=== PATIENT | female | born 1950 | race Caucasian/White ===

== ENCOUNTER 2021-08-14 09:29 | Outpatient (CLI) | payer MEDICARE, SELFPAY ==
--- NOTE | ~2021-08-14 | CT_ITS ---
EXAMINATION: CT brain wo con DATE: 08/14/2021 09:57 INDICATION: Right hemiparesis. TECHNIQUE: Computed tomography (CT) of the head was performed without intravenous contrast. The mA wa s adjusted according to patient size. Iterative reconstruction technique was employed. The dose-lengt h product was 681.00 mGy-cm. COMPARISON: None FINDINGS: There are scattered areas of low attenuation in the cerebral white matter. There are change s of right-sided craniotomy. There is an aneurysm clip in right sylvian fissure. There is no intracra nial hemorrhage, acute infarction, or abnormal intracranial mass lesion. The ventricles are normal in size. The paranasal sinuses are clear. The orbits are normal. The mastoid air cells are normal. IMPRESSION: 1. Mild nonspecific cerebral white matter disease, which likely represents chronic small vessel ische chikis disease. Reviewed, dictated and finalized at location B. IMPRESSION: 1. Mild nonspecific cerebral white matter disease, which likely represents die developer andrei small vessel ischemic disease.
== END 2021-08-14 09:30 | disposition home or self-care (01) ==
PROVIDERS: PCP Internal Medicine; Visit Provider Clinical Nurse Specialist
DX: R29.898 Other symptoms and signs involving the musculoskeletal system (principal); R93.0 Abnormal findings on diagnostic imaging of skull and head, not elsewhere classified
CPT/HCPCS: 70450

== ENCOUNTER 2021-12-28 10:38 | Outpatient (CLI) | payer MEDICARE, SELFPAY ==
--- NOTE | ~2021-12-28 | XR_ITS ---
EXAM: XR cervical spine min 6V DATE: 12/28/2021 11:16 HISTORY: Evaulation for Cervical spine pain . COMPARISON: None available. FINDINGS: Craniocervical association and atlantoaxial joint are aligned. No prevertebral soft tissue swelling. A 2 mm retrolisthesis at C4-5 that reduces in flexion. 2 mm anterolisthesis at C5-6 and fl exion. Multilevel facet sclerosis and hypertrophy. Multilevel severe disc space narrowing with margin al osteophytosis Multilevel severe bilateral neural foraminal narrowing. IMPRESSION: Dynamic grade 1 listheses at C4-5 and C5-6. Multilevel severe degenerative disc disease a nd bilateral neural foraminal narrowing. Reviewed, dictated and finalized at location K. IMPRESSION: Dynamic grade 1 listheses at C4-5 and C5-6. Multilevel severe degen erative disc disease and bilateral neural foraminal narrowing.
== END 2021-12-28 10:39 | disposition home or self-care (01) ==
PROVIDERS: PCP Internal Medicine; Visit Provider Nurse Practitioner Family
DX: R29.898 Other symptoms and signs involving the musculoskeletal system (principal); M50.30 Other cervical disc degeneration, unspecified cervical region
CPT/HCPCS: 72052

== ENCOUNTER 2021-12-31 15:35 | Outpatient (NON) | payer MEDICARE, SELFPAY | END 2021-12-31 15:36 | disposition home or self-care (01) | PROVIDERS: PCP Internal Medicine; Visit Provider Clinical Nurse Specialist | DX: N39.0 Urinary tract infection, site not specified (principal) | CPT/HCPCS: 87086; 87147; 87181; 87186 ==

== ENCOUNTER 2022-02-17 12:29 | Outpatient (CLI) | payer MEDICARE, SELFPAY ==
--- NOTE | ~2022-02-17 | CT_ITS ---
EXAMINATION: CT cervical spine wo con DATE: 02/17/2022 12:53 INDICATION: Neck pain. TECHNIQUE: Computed tomography (CT) of the cervical spine was performed without intravenous contrast. Automated exposure control and iterative reconstruction technique were employed. The dose-length pro duct was 261.93 mGy-cm. 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 There is mild emphysema. There is 6 degrees levocurvat ure of cervical spine. There is kyphosis of cervical spine. Osseous central spinal canal is developme ntally small. There is mild chronic height loss of T2 vertebral body. There is severely decreased dis c height at C3-C4 with interbody fusion. There is severely decreased disc height at C4-C5, moderately decreased disc height at C5-C6 and C6-C7, and severely decreased disc height at C7-T1. The following disc levels are specifically discussed: C2-C3: There is mild bilateral uncovertebral joint osteoarthritis. There is severe right and mild lef t facet joint osteoarthritis. There is mild right neural foraminal stenosis. There is no central tenzin l stenosis. C3-C4: There is mild right and severe left uncovertebral joint hypertrophy. There is ankylosis of the facet joints with moderate hypertrophy. There is moderate bilateral neural foraminal stenosis. There is mild central canal stenosis. C4-C5: There is severe bilateral uncovertebral joint osteoarthritis. There is moderate bilateral face t joint osteoarthritis. There is moderate bilateral neural foraminal stenosis. There is moderate cent ral canal stenosis. C5-C6: There is severe right and moderate left uncovertebral joint osteoarthritis. There is severe ri ght and mild left facet joint osteoarthritis. There is moderate right and mild left neural foraminal stenosis. There is mild central canal stenosis. C6-C7: There is severe bilateral uncovertebral joint osteoarthritis. There is mild bilateral facet clifford int osteoarthritis. There is moderate bilateral neural foraminal stenosis. There is moderate central canal stenosis. C7-T1: There is severe bilateral uncovertebral joint osteoarthritis. There is severe bilateral facet joint osteoarthritis. There is moderate bilateral neural foraminal stenosis. There is mild central ca nal stenosis. IMPRESSION: 1. Severe cervical spondylosis. Reviewed, dictated and finalized at location A. H WINDER
== END 2022-02-17 12:30 | disposition home or self-care (01) ==
PROVIDERS: PCP Internal Medicine; Visit Provider Nurse Practitioner Adult Health
DX: M47.892 Other spondylosis, cervical region (principal)
CPT/HCPCS: 72125

== ENCOUNTER 2022-04-13 15:28 | Outpatient (NON) | payer MEDICARE, SELFPAY ==
[2022-04-13 20:24] LABS: Appearance Urine Slightly Cloudy (Clear); Bilirubin Urine Negative (Negative); Blood Urine 1+ (Negative); Color Urine Yellow (Yellow); Glucose Urine UA Negative (Negative); Ketones Urine Negative (Negative); Leukocyte Esterase Ur 2+ LEU/UL (Negative); Nitrate Urine Negative (Negative); Protein Urine 2+ mg/dL (Negative); Specific Grav Ur 1.025 (1.001-1.035); Urobilinogen Urine 0.2 mg/dL (<2.0)
[2022-04-13 20:43] LABS: Add Urine Microscopic? YES; Mucus Urine Rare /lpf; Squamous Epithelial Cell Urine Rare /hpf (Few); WBC Urine >75 /hpf
== END 2022-04-13 15:29 | disposition home or self-care (01) ==
LOC: ANHGOSHLAB 15:30
PROVIDERS: PCP Internal Medicine; Visit Provider Clinical Nurse Specialist
DX: N39.0 Urinary tract infection, site not specified (principal)
CPT/HCPCS: 81001; 87086; 87088

== ENCOUNTER 2022-04-29 06:35 | Outpatient (CLI) | payer MEDICARE, SELFPAY ==
[2022-04-09 10:58] VITALS: BMI 28.9
--- NOTE | 2022-04-09 11:00 | PC.NURSE ---
Pre Radiology instructions Report to the outpatient [facility] on date _04/20/22 @ 0700____ Procedure Time: __09__ YOU MAY BE MONITORED AT HOSPITAL FOR UP TO 4 HOURS AFTER YOUR PROCEDURE. A visitors will be allowed to accompany the patient into the hospital. ?The visitor will be instructed to remain with patient at all times or leave the building due to restrictions.? We will allow the visitor to come back to the postoperative area when patient is ready.? NO children visitors allowed at this time. You and your visitor will be asked to self-screen and do not enter if you have any COVID symptoms. A mask is OPTIONAL within the hospital. Patients are to have no food or drink 6 hours prior to procedure time (0300 AM) Driving will be restricted after the procedure, you must have a person to drive you home. Labs will be drawn in preop area and once reviewed, you will be taken to radiology area for procedure. When the procedure is completed, you will be taken to outpatient where you will be monitored for several hours. You may have one visitor in this area. Other than holding anti-coagulants, patient may take other medication(s) as scheduled. Prior to your appointment date patients are instructed to hold anti-coagulants after discussing with ordering provider to stop. If unable to discontinue anti-coagulants please notify radiologist. ? No aspirin or warfarin (Coumadin) for 7 days prior to the procedure. ? No clopidogrel (Plavix), ticagrelor (Brilinta), prasugrel (Effient) or dabigatran (Pradaxa) for 5 days prior to the procedure. ? No rivaroxaban (Xarelto), apixaban (Eliquis), dipyridamole (Aggrenox or Persantine) or cilostazol (Pletal) for 2 days prior to the procedure. Medications to discontinue per physician: Date to take last dose: Please leave all valuables, including medications, at home the day of procedure. The hospital will not accept responsibility for valuables. Wear comfortable, loose fitting clothing.? Follow any additional instructions given to you from ordering provider. Telephone instructions given to ____PATIENT and asked if any additional questions and then verbalized understanding. Patient advised to call scheduling provider office or registration scheduling [phone] if any additional questions.
--- NOTE | 2022-04-20 08:25 | PC.NURSE ---
Addendum entered by Aurea Pavon RN 04/20/22 08:27: PATIENT RESCHEDULED FROM 04/20/22 TO 04/29/22. PRE-OP INSTR REVIEWED, SHE RELAYS UNDERSTANDING OF INSTRUCTIONS & NEW DATE/TIME. Original Note: Pre Radiology instructions Report to the outpatient [facility] on date __04/29/22, ARRIVE AT 7:00AM___ Procedure Time: _9:00AM___ YOU MAY BE MONITORED AT HOSPITAL FOR UP TO 4 HOURS AFTER YOUR PROCEDURE. A visitors will be allowed to accompany the patient into the hospital. ?The visitor will be instructed to remain with patient at all times or leave the building due to restrictions.? We will allow the visitor to come back to the postoperative area when patient is ready.? NO children visitors allowed at this time. You and your visitor will be asked to self-screen and do not enter if you have any COVID symptoms. A mask is OPTIONAL within the hospital. Patients are to have no food or drink 6 hours prior to procedure time Driving will be restricted after the procedure, you must have a person to drive you home. Labs will be drawn in preop area and once reviewed, you will be taken to radiology area for procedure. When the procedure is completed, you will be taken to outpatient where you will be monitored for several hours. You may have one visitor in this area. Other than holding anti-coagulants, patient may take other medication(s) as scheduled. Prior to your appointment date patients are instructed to hold anti-coagulants after discussing with ordering provider to stop. If unable to discontinue anti-coagulants please notify radiologist. ? No aspirin or warfarin (Coumadin) for 7 days prior to the procedure. ? No clopidogrel (Plavix), ticagrelor (Brilinta), prasugrel (Effient) or dabigatran (Pradaxa) for 5 days prior to the procedure. ? No rivaroxaban (Xarelto), apixaban (Eliquis), dipyridamole (Aggrenox or Persantine) or cilostazol (Pletal) for 2 days prior to the procedure. Medications to discontinue per physician: __NONE Date to take last dose: Please leave all valuables, including medications, at home the day of procedure. The hospital will not accept responsibility for valuables. Wear comfortable, loose fitting clothing.? Follow any additional instructions given to you from ordering provider. Telephone instructions given to _PATIENT and asked if any additional questions and then verbalized understanding. Patient advised to call scheduling provider office or registration scheduling [phone] if any additional questions.
--- NOTE | ~2022-04-29 | CT_ITS ---
EXAMINATION: 1. XR myelogram spine cervical 2. CT cervical spine w con DATE: 04/29/2022 10:05 INDICATION: Cervical radiculopathy. TECHNIQUE: The procedure including the risks, benefits, and alternatives was discussed with the patie nt. Risks discussed included spinal headache, bleeding, and infection. The patient understood the ris ks and agreed to proceed. A timeout was performed to verify the patient's name, date of , and procedure to be performed. The skin overlying the lumbar spine was prepped and draped in usual ster ile fashion. Subcutaneous 1% lidocaine was used for local anesthesia. A 22 gauge spinal needle was advanced under fluoroscopic guidance at multiple levels in lumbar spine with final access of the thec al sac at L3-L4. 10 mL Omnipaque 300 was injected. The needle was removed and the entry site was paul sindhu and dressed. There were no immediate complications. The patient was placed prone with head down on the fluoroscopy table, but there was poor movement of contrast to the cervical spine. Fluoroscopy exposure time was 0.7 minutes. The total number of images was 2. Computed tomography (CT) of the cerv ical spine was performed without intravenous contrast. There was poor contrast opacification of the c ervical spine. The patient was rolled [id number] in a stretcher supine with head down and a repeat CT was performed. Automated exposure control and iterative reconstruction technique were employed. Th e dose-length product was 581 mGy-cm. FINDINGS: CERVICAL MYELOGRAM: Real-time fluoroscopy demonstrates the needle at the L3-L4 level. There is indent ation of the thecal sac at multiple levels in the lumbar spine. There was poor contrast opacification in the cervical spine under fluoroscopy. POSTMYELOGRAM CERVICAL SPINE CT: Partially visualized is an aneurysm clip in right sylvian fissure. A gain seen is a 6 x 2 mm mass of fat posterior to the midbrain, likely a lipoma. There is mild emphyse ma. There is smooth septal thickening at the lung apices, likely mild pulmonary edema. There is 3 deg татьяна levocurvature of cervical spine. There is a chronic compression fracture of T2 with less than 1/ 5 loss of height. There is severely decreased disc height at C3-C4 with interbody fusion. There is se verely decreased disc height at C4-C5, moderately decreased disc height at C5-C6 and C6-C7, and sever gurmeet decreased disc height at C7-T1. The following disc levels are specifically discussed: C2-C3: There is moderate right and mild left uncovertebral joint osteoarthritis. There is severe righ t and mild left facet joint osteoarthritis. There is mild right neural foraminal stenosis. There is n o central canal stenosis. C3-C4: There is moderate right and severe left uncovertebral joint hypertrophy. There is ankylosis of the facet joints with severe hypertrophy. There is moderate bilateral neural foraminal stenosis. The re is mild central canal stenosis with ventral indentation of the spinal cord. C4-C5: There is a central extrusion. There is severe bilateral uncovertebral joint osteoarthritis. Th ere is moderate bilateral facet joint osteoarthritis. There is severe right and moderate left neural foraminal stenosis. There is moderate central canal stenosis with ventral and dorsal indentation of t he spinal cord. C5-C6: There is a left central extrusion. There is severe right and moderate left uncovertebral joint osteoarthritis. There is severe right and moderate left facet joint osteoarthritis. There is moderat e bilateral neural foraminal stenosis. There is mild central canal stenosis with ventral indentation of the spinal cord. C6-C7: There is a central extrusion. There is severe bilateral uncovertebral joint osteoarthritis. Th ere is mild bilateral facet joint osteoarthritis. There is moderate bilateral neural foraminal stenos is. There is mild central canal stenosis. C7-T1: There is sev
[2022-04-29 07:11] VITALS: BP 121/62; PULSE 93; RESP 16; TEMP 37.2; O2SAT 93
[2022-04-29 07:41] LABS: Mean Platelet Volume 8.8 fl (7.4-10.4); Platelet Count Result 220 k/mm3 (150-375)
[2022-04-29 10:00] VITALS: BP 130/78; PULSE 87; RESP 20; O2SAT 96
[2022-04-29 10:30] VITALS: BP 130/82; PULSE 80; RESP 20
[2022-04-29 11:00] VITALS: BP 135/82; PULSE 82; RESP 20
[2022-04-29 11:20] VITALS: BP 134/79; PULSE 65; RESP 20
== END 2022-04-29 11:30 | disposition home or self-care (01) ==
PROVIDERS: Radiology Diagnostic Radiology; PCP Internal Medicine; Referring Provider Neurological Surgery; Visit Provider Radiology Diagnostic Radiology
DX: M47.22 Other spondylosis with radiculopathy, cervical region (principal); Z98.1 Arthrodesis status
CPT/HCPCS: 36415; 62302; 72126; 85049; 85610; Q9967

== ENCOUNTER 2023-04-20 07:27 | Outpatient (CLI) | payer MEDICARE, SELFPAY ==
--- NOTE | ~2023-04-20 | CT_ITS ---
EXAMINATION: CT abdomen wo/w con DATE: 04/20/2023 08:06 INDICATION: Abnormal ultrasound of right kidney. TECHNIQUE: Computed tomography (CT) of the abdomen was performed without and with 100 mL Omnipaque 35 0 intravenous contrast. Automated exposure control and iterative reconstruction technique were employ ed. The dose-length product was 780.24 mGy-cm. COMPARISON: None. FINDINGS: The visualized portions of the lung bases demonstrates mild atelectasis. There is mild elev ation of right hemidiaphragm. There is a 4 mm nodule in left lower lobe, likely benign. No pleural ef fusion. There is left atrial and left ventricular enlargement of the heart. There are coronary artery calcifications. No pericardial effusion. There are bilateral breast implants. There is a 7 mm cyst i n the liver. The gallbladder is distended, likely secondary to fasting. The spleen, pancreas, and adr enal glands are normal. There are cysts in the kidneys measuring up to 7 mm on the right. No urolithi asis. No hydronephrosis. There are no dilated loops of bowel. There is calcified atherosclerosis of t he aorta and many of the other arteries. There are no pathologically enlarged lymph nodes. There is n o free intraperitoneal fluid. Partially visualized is an ostomy on the left. There is severe thoracic and lumbar spondylosis. There is mild chronic anterior wedging of multiple vertebral bodies. IMPRESSION: 1. Small benign cysts in the kidneys. Reviewed, dictated and finalized at location E. R INSTALLER
[2023-04-20 07:58] LABS: Estimated Glomerular Filt Rate > 60
== END 2023-04-20 07:28 | disposition home or self-care (01) ==
PROVIDERS: PCP Internal Medicine; Visit Provider Physician Assistant
DX: R93.421 Abnormal radiologic findings on diagnostic imaging of right kidney (principal); N28.1 Cyst of kidney, acquired
CPT/HCPCS: 74170; Q9967

== ENCOUNTER 2023-08-19 08:31 | Outpatient (CLI) | payer MEDICARE, SELFPAY ==
[2023-08-19 18:55] LABS: Basophils Absolute Auto 0.1 K/mm3 (0.0-0.1); Basophils Percent Auto 1.2 % (0.2-1.2); Eosinophils Absolute Auto 0.3 K/mm3 (0-0.3); Eosinophils Percent Auto 4.4 % (0-4.4); Hematocrit 46.2 % (37.0-47.0); Hemoglobin 14.9 g/dL (12.0-15.0); Immature Granulocyte Absolute 0.01 K/mm3 (0.00-0.031); Immature Granulocyte Percent A 0.2 % (0-0.5); Lymphocytes Absolute Auto 1.18 K/mm3 (0.9-3.2); Lymphocytes Percent Auto 20.6 % (18.3-44.2); Mean Corpuscular HGB Conc 32.3 g/dl (32-36); Mean Corpuscular Hemoglobin 33.3 pg (26-34); Mean Corpuscular Volume 103.4 fl (80-100); Monocytes Absolute Auto 0.7 K/mm3 (0.1-0.6); Monocytes Percent Auto 12.4 % (2.6-8.5); Neutrophils Absolute Auto 3.5 K/mm3 (1.3-6.7); Neutrophils Percent Auto 61.2 % (45.5-73.1); Platelet Count Result 216 k/mm3 (150-375); Red Blood Count 4.47 M/mm3 (4.2-5.4); Red Cell Distribution Width 12.9 % (11.5-14.5); White Blood Count 5.7 K/mm3 (4.5-10.0)
[2023-08-19 19:12] LABS: Alanine Aminotransferase 17 U/L (6-35); Albumin Level 4.5 g/dL (3.5-5.1); Alkaline Phosphatase 90 U/L (38-126); Anion Gap 8 mmol/L (4-12); Aspartate Amino Transferase 31 U/L (14-36); Blood Urea Nitrogen 20 mg/dL (7-17); Calcium 9.8 mg/dL (8.4-10.2); Carbon Dioxide 32 mmol/L (22-30); Chloride 99 mmol/L (98-107); Estimated Glomerular Filt Rate > 60; Glucose 84 mg/dL (65-110); Potassium 3.6 mmol/L (3.4-5.0); Sodium 139 mmol/L (137-145)
[2023-08-19 19:28] LABS: Vitamin D 25 Hydroxy 33.5 ng/mL
== END 2023-08-19 08:32 | disposition home or self-care (01) ==
LOC: ANHGOSHLAB 08:32
PROVIDERS: PCP Internal Medicine; Visit Provider Clinical Nurse Specialist
DX: E55.9 Vitamin D deficiency, unspecified (principal); Z13.228 Encounter for screening for other metabolic disorders; I10 Essential (primary) hypertension; J44.9 Chronic obstructive pulmonary disease, unspecified
CPT/HCPCS: 36415; 80053; 82306; 85025

== ENCOUNTER 2023-10-20 09:30 | Outpatient (CLI) | payer MEDICARE, SELFPAY ==
[2023-10-20 13:45] LABS: Add Urine Microscopic? YES; Appearance Urine Clear (Clear); Bacteria Urine None Seen /hpf; Bilirubin Urine Negative (Negative); Blood Urine Negative (Negative); Color Urine Dark Yellow (Yellow); Glucose Urine UA Negative (Negative); Ketones Urine Negative (Negative); Leukocyte Esterase Ur 2+ LEU/UL (Negative); Nitrate Urine Negative (Negative); Non Pathogenic Casts 0-2; Protein Urine Negative (Negative); RBC Urine 0-2 /hpf (0-2); Specific Grav Ur 1.014 (1.001-1.035); Squamous Epithelial Cell Urine None Seen /hpf (Few)
[2023-10-20 14:02] LABS: Creatinine Urine 44.9 mg/dL
[2023-10-20 14:05] LABS: Microalbumin Urine Random 63.3 mg/L (0-16.7)
[2023-10-20 14:37] LABS: Basophils Absolute Auto 0.1 K/mm3 (0.0-0.1); Basophils Percent Auto 0.9 % (0.2-1.2); Eosinophils Absolute Auto 0.2 K/mm3 (0-0.3); Eosinophils Percent Auto 2.8 % (0-4.4); Hematocrit 45.5 % (37.0-47.0); Hemoglobin 14.5 g/dL (12.0-15.0); Immature Granulocyte Absolute 0.01 K/mm3 (0.00-0.031); Immature Granulocyte Percent A 0.2 % (0-0.5); Lymphocytes Percent Auto 26.5 % (18.3-44.2); Mean Corpuscular HGB Conc 31.9 g/dl (32-36); Mean Corpuscular Hemoglobin 33.2 pg (26-34); Mean Corpuscular Volume 104.1 fl (80-100); Mean Platelet Volume 9.9 fl (7.4-10.4); Monocytes Absolute Auto 0.5 K/mm3 (0.1-0.6); Monocytes Percent Auto 8.8 % (2.6-8.5); Neutrophils Absolute Auto 3.4 K/mm3 (1.3-6.7); Neutrophils Percent Auto 60.8 % (45.5-73.1); Platelet Count Result 233 k/mm3 (150-375); Red Blood Count 4.37 M/mm3 (4.2-5.4); Red Cell Distribution Width 13.5 % (11.5-14.5); White Blood Count 5.7 K/mm3 (4.5-10.0)
[2023-10-20 14:42] LABS: Alanine Aminotransferase 18 U/L (6-35); Albumin Level 4.4 g/dL (3.5-5.1); Alkaline Phosphatase 74 U/L (38-126); Anion Gap 6 mmol/L (4-12); Aspartate Amino Transferase 43 U/L (14-36); Bilirubin,Total 0.8 mg/dL (0.2-1.3); Blood Urea Nitrogen 19 mg/dL (7-17); Calcium 10.1 mg/dL (8.4-10.2); Carbon Dioxide 34 mmol/L (22-30); Chloride 100 mmol/L (98-107); Estimated Glomerular Filt Rate > 60; Glucose 96 mg/dL (65-110); Potassium 3.8 mmol/L (3.4-5.0); Sodium 140 mmol/L (137-145)
== END 2023-10-20 09:31 | disposition home or self-care (01) ==
LOC: ANHGOSHLAB 09:31
PROVIDERS: PCP Internal Medicine; Visit Provider Clinical Nurse Specialist
DX: I10 Essential (primary) hypertension (principal)
CPT/HCPCS: 36415; 80053; 81001; 82043; 84443; 85025; 87077; 87086; 87088; 87181

== ENCOUNTER 2023-10-27 12:32 | Outpatient (CLI) | payer MEDICARE, SELFPAY ==
--- NOTE | 2023-10-27 12:37 | ECHO_ITS ---
Patient Info Name: Roxana Andersen Age: 73 years : 1950 Gender: Female Ht: 62 in Wt: 159 lbs BSA: 1.80 m2 HR: 97 bpm BP: 142 / 79 mmHg Technical Quality: Fair Exam Date: 10/27/2023 12:45 PM Exam Location: Echo Lab Patient Status: Outpatient Admit Date: 10/27/2023 Staff Ordering Physician: Lisa Vaughan Rheumatology Specialist: Nidia Pineda RDCS Attending Provider: Lisa Vaughan Referring Physician: Clement RON; Exam Type: CA echo doppler color flow Study Info Indications I44.7 - Left bundle-branch block, unspecified Complete two-dimensional, color flow and Doppler transthoracic echocardiogram is performed. Strain analysis performed. Summary 1. Complete two-dimensional, color flow and Doppler transthoracic echocardiogram is performed. 2. Left ventricular chamber dimension is mildly enlarged. 3. Left ventricular septal wall motion is abnormal with septal motion related to bundle branch block. 4. Left ventricular systolic function is moderately globally reduced, estimated at 40-45%. 5. The left ventricular diastolic function is grade I diastolic dysfunction. 6. E/e' 10 is mildly elevated. 7. Global longitudinal strain is abnormal at -12.7%. 8. Left atrial chamber dimension is moderately enlarged. Left Ventricle E/e' 10 is mildly elevated. Global longitudinal strain is abnormal at -12.7%. Left ventricular systolic function is moderately globally reduced, estimated at 40-45%. Left ventricular chamber dimension is mildly enlarged. Left ventricular septal wall motion is abnormal with septal motion related to bundle branch block. The left ventricular diastolic function is grade I diastolic dysfunction. Right Ventricle Right ventricular chamber dimension is normal. Right ventricular systolic function is normal. Left Atria Left atrial chamber dimension is moderately enlarged. Right Atria Right atrial chamber dimension is normal. Aortic Valve The aortic valve is trileaflet. There is no aortic valve stenosis. There is no aortic valve regurgitation. Pulmonic Valve There is no pulmonic regurgitation. Mitral Valve There is no mitral valve stenosis. There is no mitral valve regurgitation. Tricuspid Valve There is no tricuspid valve regurgitation. Pericardium/Pleural There is no pericardial effusion. Inferior Vena Cava Normal inferior vena cava with >50% collapse upon inspiration consistent with normal right atrial pressure, 5 mmHg. Aorta The aortic root size at the sinus of Valsalva is normal. Left Ventricular Outflow Tract Name Value Normal LVOT 2D LVOT Diameter 1.9 cm LVOT Doppler LVOT Peak Gradient 6 mmHg LVOT Mean Gradient 3 mmHg LVOT VTI 22 cm LVOT VTI/AV VTI Ratio 0.8 LVOT Stroke Volume 66 ml LVOT CO 5.7 l/min LVOT CI 3.2 l/min/m2 Pulmonic Valve Name Value Normal RVOT
== END 2023-10-27 12:33 | disposition home or self-care (01) ==
LOC: ANHCARD 12:34
PROVIDERS: PCP Internal Medicine; Visit Provider Clinical Nurse Specialist
DX: I44.7 Left bundle-branch block, unspecified (principal); I10 Essential (primary) hypertension; R93.1 Abnormal findings on diagnostic imaging of heart and coronary circulation
CPT/HCPCS: 93306

== ENCOUNTER 2024-01-11 14:24 | Outpatient (CLI) | payer MEDICARE, SELFPAY ==
[2024-01-11 19:42] LABS: Basophils Absolute Auto 0.1 K/mm3 (0.0-0.1); Basophils Percent Auto 1.3 % (0.2-1.2); Eosinophils Absolute Auto 0.1 K/mm3 (0-0.3); Hematocrit 45.3 % (37.0-47.0); Hemoglobin 14.5 g/dL (12.0-15.0); Immature Granulocyte Absolute 0.01 K/mm3 (0.00-0.031); Immature Granulocyte Percent A 0.2 % (0-0.5); Lymphocytes Absolute Auto 1.68 K/mm3 (0.9-3.2); Lymphocytes Percent Auto 30.4 % (18.3-44.2); Mean Corpuscular Hemoglobin 32.4 pg (26-34); Mean Corpuscular Volume 101.1 fl (80-100); Mean Platelet Volume 9.8 fl (7.4-10.4); Monocytes Absolute Auto 0.5 K/mm3 (0.1-0.6); Monocytes Percent Auto 9.4 % (2.6-8.5); Neutrophils Absolute Auto 3.1 K/mm3 (1.3-6.7); Neutrophils Percent Auto 56.7 % (45.5-73.1); Platelet Count Result 208 k/mm3 (150-375); Red Blood Count 4.48 M/mm3 (4.2-5.4); Red Cell Distribution Width 13.7 % (11.5-14.5); White Blood Count 5.5 K/mm3 (4.5-10.0)
[2024-01-11 19:56] LABS: NT Pro B Type Natriuretic Pept 469 pg/mL (19.9-100)
[2024-01-11 20:53] LABS: Alanine Aminotransferase 26 U/L (6-35); Albumin Level 4.4 g/dL (3.5-5.1); Alkaline Phosphatase 78 U/L (38-126); Anion Gap 8 mmol/L (4-12); Aspartate Amino Transferase 50 U/L (14-36); Bilirubin,Total 0.6 mg/dL (0.2-1.3); Blood Urea Nitrogen 15 mg/dL (7-17); Calcium 10.2 mg/dL (8.4-10.2); Carbon Dioxide 35 mmol/L (22-30); Chloride 98 mmol/L (98-107); Estimated Glomerular Filt Rate > 60; Glucose 121 mg/dL (65-110); Potassium 2.5 mmol/L (3.4-5.0); Sodium 141 mmol/L (137-145)
== END 2024-01-11 14:25 | disposition home or self-care (01) ==
LOC: ANHGOSHLAB 14:26
PROVIDERS: PCP Internal Medicine; Visit Provider Internal Medicine Cardiovascular Disease
DX: I51.9 Heart disease, unspecified (principal)
CPT/HCPCS: 36415; 80053; 83880; 85025

== ENCOUNTER 2024-01-13 10:16 | Outpatient (CLI) | payer MEDICARE, SELFPAY ==
[2024-01-13 12:05] LABS: Magnesium 1.8 mg/dL (1.6-2.3)
[2024-01-13 12:06] LABS: Alanine Aminotransferase 22 U/L (6-35); Albumin Level 4.1 g/dL (3.5-5.1); Alkaline Phosphatase 89 U/L (38-126); Anion Gap 5 mmol/L (4-12); Aspartate Amino Transferase 44 U/L (14-36); Bilirubin,Total 1.2 mg/dL (0.2-1.3); Blood Urea Nitrogen 22 mg/dL (7-17); Calcium 9.3 mg/dL (8.4-10.2); Carbon Dioxide 35 mmol/L (22-30); Chloride 101 mmol/L (98-107); Cholesterol 157 mg/dL (0-200); Estimated Glomerular Filt Rate > 60; Glucose 109 mg/dL (65-110); HDL Direct 99 mg/dL; Potassium 3.1 mmol/L (3.4-5.0); Sodium 141 mmol/L (137-145); Triglycerides 70 mg/dL (<150)
[2024-01-13 12:17] LABS: LDL Cholesterol Direct 38 mg/dL
[2024-01-13 12:25] LABS: Creatinine Urine 93.8 mg/dL
[2024-01-13 12:39] LABS: Thyroid Stimulating Hormone < 0.015 uIU/mL (0.465-4.680)
[2024-01-13 12:57] LABS: MALB Creatinine Ratio 248.5 mg/g (0-30); Microalbumin Urine Random 233.1 mg/L (0-16.7)
== END 2024-01-13 10:17 | disposition home or self-care (01) ==
PROVIDERS: Clinical Nurse Specialist; PCP Internal Medicine; Visit Provider Internal Medicine
DX: E87.6 Hypokalemia (principal); I10 Essential (primary) hypertension
CPT/HCPCS: 36415; 80053; 80061; 82043; 83735; 84443

== ENCOUNTER 2024-01-16 09:46 | Outpatient (CLI) | payer MEDICARE, SELFPAY ==
[2024-01-16 20:40] LABS: Anion Gap 8 mmol/L (4-12); Blood Urea Nitrogen 24 mg/dL (7-17); Calcium 9.7 mg/dL (8.4-10.2); Carbon Dioxide 32 mmol/L (22-30); Chloride 102 mmol/L (98-107); Estimated Glomerular Filt Rate > 60; Glucose 86 mg/dL (65-110); Potassium 3.7 mmol/L (3.4-5.0); Sodium 142 mmol/L (137-145)
[2024-01-16 21:08] LABS: Thyroid Stimulating Hormone 0.036 uIU/mL (0.465-4.680)
[2024-01-16 21:28] LABS: Creatinine Urine 62.5 mg/dL
[2024-01-16 21:35] LABS: MALB Creatinine Ratio 149.8 mg/g (0-30); Microalbumin Urine Random 93.6 mg/L (0-16.7)
[2024-01-16 22:43] LABS: Free T4 Free Thyroxine 1.44 ng/mL (0.78-2.19)
== END 2024-01-16 09:47 | disposition home or self-care (01) ==
LOC: ANHGOSHLAB 09:49
PROVIDERS: PCP Internal Medicine; Visit Provider Clinical Nurse Specialist
DX: I51.7 Cardiomegaly (principal); R79.89 Other specified abnormal findings of blood chemistry; R80.9 Proteinuria, unspecified; E87.6 Hypokalemia
CPT/HCPCS: 36415; 80048; 82043; 84439; 84443; 84480

== ENCOUNTER 2024-01-18 12:16 | Outpatient (CLI) | payer MEDICARE, SELFPAY ==
--- NOTE | 2024-01-18 13:37 | WPDPFTINT ---
PFT Procedure Performed PFT Procedure Performed Plethysmography (Lung Vol) Diffusing Cap (DLCO) Flow Vol Loop Spirometry w/o Bronchodil PFT Interpretation This is a pulmonary function test with spirometry, plethysmography and diffusing capacity. The test was performed and results interpreted in accordance with the 2019 and 2005 ATS/ERS Task Force guidelines respectively using the Global Lung Function Initiative-2012 reference equations. Patient demonstrated good effort and cooperation. Reproducibility criteria were met. The quality of the spirometry maneuver was Grade A. Findings: Spirometry: The contour the inspiratory and expiratory flow tracing are normal. The FVC is 1.71 L, 67% predicted. The FEV1 is 1.26 L, 63% predicted. The FEV1: FVC ratio 74%. Plethysmography: The total lung capacity is 2.19 L, 46% predicted. The functional residual capacity is 0.83 L, 31% predicted. The residual volume is 0.48 L, 23% predicted. Diffusing capacity: The diffusing capacity unadjusted for hemoglobin and carboxyhemoglobin is 10.3, 53% predicted. The diffusing capacity adjusted for alveolar volume is 3.80, 87% predicted. Impression: There is a moderate restrictive ventilatory abnormality. The spirometry is normal without evidence of an obstructive abnormality. The diffusing capacity unadjusted for hemoglobin and carboxyhemoglobin is moderately decreased and normalizes when adjusted for alveolar volume. There are no prior studies for comparison
== END 2024-01-18 12:17 | disposition home or self-care (01) ==
PROVIDERS: PCP Internal Medicine; Visit Provider Internal Medicine Cardiovascular Disease
DX: R06.09 Other forms of dyspnea (principal); Z87.891 Personal history of nicotine dependence; R94.2 Abnormal results of pulmonary function studies
CPT/HCPCS: 94375; 94726; 94729

== ENCOUNTER 2024-02-21 08:31 | Outpatient (CLI) | payer MEDICARE, SELFPAY ==
[2024-02-21 14:44] LABS: Anion Gap 0 mmol/L (4-12); Blood Urea Nitrogen 21 mg/dL (7-17); Calcium 9.7 mg/dL (8.4-10.2); Carbon Dioxide 35 mmol/L (22-30); Chloride 102 mmol/L (98-107); Estimated Glomerular Filt Rate > 60; Glucose 87 mg/dL (65-110); Potassium 3.3 mmol/L (3.4-5.0); Sodium 137 mmol/L (137-145)
[2024-02-21 15:03] LABS: Thyroid Stimulating Hormone < 0.015 uIU/mL (0.465-4.680)
--- OUTSIDE RECORDS SUMMARY | 2024-02-28 08:59 | XMS_ITS | Continuity of Care Document ---
Author Organization [facility] - Main Address [address] [facility] [address] [place] [address] Insurance Providers Payer Plan Claims Address Claims Phone Policy Number Group Number Relation Employer Guarantor Name Guarantor Guarantor Address Guarantor Phone [employer] tel:[phone] Dirk Schmidt Sitzes [address] [place] [address] [employer] tel:[phone] Self Roxana Sitzes [address] [place] [address] [id number] [employer] [address], [place] [address] tel:[phone] Self Roxana Sitzes [address] [place] [id number] Problems Condition ICD9 code ICD10 code SNOMED code Start Date End Date S tatus Dysuria R30.0 Working Abnormal radiologic findings on diagnostic imaging of right kidney R93.421 [place] Chronic obstructive pulmonary disease, unspecified J44.9 Working Encounter for screening for other metabolic disorders Z13.228 Working Essential (primary) hypertension I10 Working Vitamin D deficiency, unspecified E55.9 Working Left bundle-branch block, unspecified I44.7 Workin g Encounter for attention to colostomy Z43.3 Working Personal history of other malignant neoplasm of rectum, rectosigmoid junction, and anus Z85.048 Workin g Hypokalemia E87.6 Cardiomegaly I51.7 Other specified abnormal findings of blood chemistry R79.89 Proteinuria, unspecified R80.9 Results No Results Allergies, adverse reactions, alerts No known allergies and adverse reactions Medications No administered medications reported Vital Signs No vital signs reported Social History No smoking Hx information available
--- OUTSIDE RECORDS SUMMARY | 2024-02-28 08:59 | XMS_ITS | Data Portability ---
Author Organization [facility], Main Office Address [address] [place] [address] Care Team Providers Care Cath Laboratory Technician Name Role Phone OSCAR MERCADO Primary Care Provider Assessment No assessment recorded. Plan of Treatment Reminders Order Date Submit Date Provider Last Modified By Organization Details Last Modified Time Details Appointments None recorded. Lab urinalysis , dipstick 2022 023 [email or web address] [facility] [address], [address], [address], 3 17:45:57 Referral None recorded. Procedures None recorded. Surgeries None recorded. Imaging None recorded. Medication Orders Macrobid 100 mg capsule 2022 023 [facility][id number], [address] [facility], [place], [address], 3 17:45:59 Patient TargetsNo targets recorded. Patient InstructionsNo instructions recorded. Reason for Referral None Reported. Results Created Date Observation Date Name Description Value Unit Range Abnormal Flag Note LastModifiedBy Organization Detail LastModifiedTime 10/28/19 21 10/27/2020 urina lysis , dipst ick Leukocytes (reference range: negative jewel/??l) Small Not Available [facility], [address], [address], 10/27/2020 10:12:02 10/28/19 21 10/27/2020 urina lysis , dipst ick Nitrite (reference rage: negative mg/dl) negati ve Not Available [address], [address], 10/27/2020 10:12:02 10/28/19 21 10/27/2020 urina lysis , dipst ick Urobilinogen (reference range: 0.2-1 mg/dl) 0.2 Not Available [address], [address], 10/27/2020 10:12:02 10/28/19 21 10/27/2020 urina lysis , dipst ick Protein (reference range: negative mg/dl) Negati ve Not Available [address], [address], 10/27/2020 10:12:02 10/28/19 21 10/27/2020 urina lysis , dipst ick pH (reference range: 5-7) 5.5 Not Available [address], [address], 10/27/2020 10:12:02 10/28/19 21 10/27/2020 urina lysis , dipst ick Blood (reference range: negative Babatunde/??l) Negati ve Not Available [address], [address], 10/27/2020 10:12:02 10/28/19 21 10/27/2020 urina lysis , dipst ick Specific [place] (reference range: 1.005-1.030) 1.020 Not Available [address], [address], 10/27/2020 10:12:02 10/28/19 21 10/27/2020 urina lysis , dipst ick Ketone (reference range: negative mg/dl) Negati ve Not Available [address], [address], 10/27/2020 10:12:02 10/28/19 21 10/27/2020 urina lysis , dipst ick Bilirubin (reference range: negative mg/dl) Negati ve Not Available [address], [address], 10/27/2020 10:12:02 10/28/19 21 10/27/2020 urina lysis , dipst ick Glucose (reference range: negative mg/dl) Negati ve Not Available [address], [address], 10/27/2020 10:12:02 10/28/19 21 10/27/2020 urina lysis , dipst ick Appearance Clear Not Available [address], [address], 10/27/2020 10:12:02 10/28/19 21 10/27/2020 urina lysis , dipst ick Color Yellow Not Available [address], [address], 10/27/2020 10:12:02 12/24/19 21 12/23/2020 urina lysis , dipst ick Leukocytes (reference range: negative jewel/??l) Negati ve Not Available [facility] [place] [address], [address], [place], [address], 12/23/2020 14:49:30 12/24/19 21 12/23/2020 urina lysis , dipst ick Nitrite (reference rage: negative mg/dl) negati ve Not Available [address], [address], 12/23/2020 14:49:30 12/24/19 21 12/23/2020 urina lysis , dipst ick Urobilinogen (reference range: 0.2-1 mg/dl) 0.2 Not Available [address], [address], 12/23/2020 14:49:30 12/24/19 21 12/23/2020 urina lysis , dipst ick Protein (reference range: negative mg/dl) Negati ve Not Available [address], [address], 12/23/2020 14:49:30 12/24/19 21 12/23/2020 urina lysis , dipst ick pH (reference range: 5-7) 5.0 Not Available [address], [address], 12/23/2020 14:49:30 12/24/1912/23/2020 urina lysis , dipst ick Blood (reference range: negative Babatunde/??l) Negati ve Not Available [address], [address], 12/23/2020 14:49:30 12/24/1912/23/2020 urina lysis , dipst ick Specific [place] (reference range: 1.005-1.030) 1.015 Not Available [address], [address], [address], 12/23/2020 14:49:30 12/24/1912/23/2020 urina lysis , dipst ick Ketone (reference range: negative mg/dl) Negati ve Not Available [address], [address], 12/23/2020 14:49:30 12/24/1912/23/2020 urina lysis , dipst ick Bilirubin (reference range: negative mg/dl) Negati ve Not Available [address], [address], 12/23/2020 14:49:30 12/24/1912/23/2020 urina lysis , dipst ick Glucose (reference range: negative mg/dl) Negati ve Not Available [address], [address], 12/23/2020 14:49:30 12/24/1912/23/2020 urina lysis , dipst ick Appearance Clear Not Available [address], [address], 12/23/2020 14:49:30 12/24/19 21 12/23/2020 urina lysis , dipst ick Color Yellow Not Available [address], [address], 12/23/2020 14:49:30 09/22/19 23 09/21/2022 urina lysis , dipst ick Leukocytes (reference range: negative jewel/??l) Small Not Available [address], [address], 09/21/2022 17:09:33 09/22/19 23 09/21/2022 urina lysis , dipst ick Nitrite (reference rage: negative mg/dl) negati ve Not Available [address], [address], 09/21/2022 17:09:33 09/22/19 23 09/21/2022 urina lysis , dipst ick Urobilinogen (reference range: 0.2-1 mg/dl) 0.2 Not Available [address], [address], 09/21/2022 17:09:33 09/22/19 23 09/21/2022 urina lysis , dipst ick Protein (reference range: negative mg/dl) Negati ve Not Available [address], [address], 09/21/2022 17:09:33 09/22/19 23 09/21/2022 urina lysis , dipst ick pH (reference range: 5-7) 6.5 Not Available [address], [address], 09/21/2022 17:09:33 09/22/19 23 09/21/2022 urina lysis , dipst ick Blood (reference range: negative Babatunde/??l) Non-He molyze d: Trace Not Available [address], [address], 09/21/2022 17:09:33 09/22/19 23 09/21/2022 urina lysis , dipst ick Specific [place] (reference range: 1.005-1.030) 1.015 Not Available [address], [address], 09/21/2022 17:09:33 09/22/19 23 09/21/2022 urina lysis , dipst ick Ketone (reference range: negative mg/dl) Negati ve Not Available [address], [address], 09/21/2022 17:09:33 09/22/19 23 09/21/2022 urina lysis , dipst ick Bilirubin (reference range: negative mg/dl) Negati ve Not Available [address], [address], 09/21/2022 17:09:33 09/22/19 23 09/21/2022 urina lysis , dipst ick Glucose (reference range: negative mg/dl) Negati ve Not Available [address], [address], 09/21/2022 17:09:33 09/22/19 23 09/21/2022 urina lysis , dipst ick Appearance Clear Not Available [address], [address], 09/21/2022 17:09:33 09/22/19 23 09/21/2022 urina lysis , dipst ick Color Yellow Not Available [facility] [place] [address] [place] [address], [address], [place], [address], 09/21/2022 17:09:33 10/28/19 21 10/27/2020 US, bladd er No observ ation record ed. [id number] [facility] [address], [address] , [place], [address], 04/28/2022 12:56:57 Result Notes None recorded. Problems Name Problem SNOMED Code Status Onset Date Resolution Date Notes Provider Name and Address Organization Details Recorded Time Closed Colles' fracture 240410844 Active Not Available [facility] 3 12:52:42 Enthesopathy of hip region 78719546 Active Not Available [facility] 3 12:52:42 Fracture of forearm 27019131 Active Not Available [facility] 3 12:52:42 Recurrent urinary tract infection 864547327 Active 2022 Vance Guzmán MD [address] [place] [address], [place] [address], [place], [address] , [facility] [employer] [facility] 3 17:42:21 Problem Notes None recorded. Procedures Surgical History Date Name Laterality Status Provider Name and Address Organization Details Recorded Time 8 Cancer Surgery completed Not Available [facility] 04/28/2022 12:49:59 6 Brain aneurysm repr complx completed Not Available [facility] 04/28/2022 12:49:59 Imaging Results Imaging Date Name Status LastModified by Organiz ation Details LastModified Time 10/27/2020 US, bladder completed [id number] [facility] [address], [address], [place], [address], 04/28/2022 12:56:57 Procedure Notes None recorded. Medical Equipment None Reported. Allergies Allergen ID Allergen Name Allergen Category Reaction Reaction Severity Criticality Documentation Date Start Date Code Code System Note Provider Name and Address Organization Details Recorded Time 13628 Substance with sulfonami de structure and antibacte rial mechanism of action (substanc e) medicatio n Not available Not available Not available 04/28/2022 94862 8003 SNOMED Not Available [facility] 3 12:56:50 96336 codeine medicatio n Not available Not available Not available 04/28/2022 2670 RxNorm Not Available [facility] 3 12:56:50 Medications Name Sig Start Date Stop Date Status Note LastModified by Organization Details LastModified Time meloxicam 15 mg tablet TAKE 1/2 (ONE-HALF ) TABLET BY MOUTH ONCE DAILY NEEDED FOR BACK PAIN. MAY TAKE AN ADDITIONA L ONE-HALF TABLET IF NEEDED active Not Available Not Available No t Available ciprofloxac in 250 mg tablet TAKE 1 TABLET BY MOUTH EVERY 12 HOURS 10/27 completed Not Available Not Available Not Available levofloxaci n 250 mg tablet 12/23 completed Not Available Not Available Not Available trimethopri m 100 mg tablet TAKE 1 TABLET BY MOUTH EVERYDAY AT BEDTIME 01/19 completed Not Available Not Available Not Available ciprofloxac in 500 mg tablet TAKE 1 TABLET BY MOUTH EVERY 12 HOURS active Not Available Not Available No t Available sulfamethox azole 800 mg-trimetho prim 160 mg tablet TAKE 1 TABLET BY MOUTH EVERY 12 HOURS 01/19 completed Not Available Not Available Not Available Vitamin C 1,000 mg tablet Take by oral route. 01/19 completed Not Available Not Available Not Available polymyxin B sulfate 10,000 unit-trimet hoprim 1 mg/mL eye drops INSTILL 1 DROP INTO EACH EYE 4 TIMES DAILY X5 DAYS 01/19 completed Not Available Not Available Not Available vitamin E 400 unit tablet Take by oral route. 01/19 completed Not Available Not Available Not Available hydrochloro thiazide 25 mg tablet TAKE 1 TABLET BY MOUTH EVERY DAY NEEDED FOR LEG SWELLING active Not Available Not Available No t Available nystatin 100,000 unit/gram topical powder APPLY TO AFFECTED AREA TWICE A DAY 10/27 completed Not Available Not Available Not Available albuterol sulfate HFA 90 mcg/actuati on aerosol inhaler INHALE 2 PUFFS BY MOUTH EVERY 4 TO 6 HOURS NEEDED FOR SHORTNESS OF BREATH FOR WHEEZING active Not Available Not Available No t Available lisinopril 40 mg tablet 10/27 completed Not Available Not Available Not Available ondansetron 4 mg disintegrat ing tablet 01/19 completed Not Available Not Available Not Available losartan 100 mg tablet TAKE 1 TABLET BY MOUTH ONCE DAILY . APPOINTME NT REQUIRED FOR FUTURE REFILLS active Not Available Not Available No t Available amoxicillin 875 mg-potassiu m clavulanate 125 mg tablet 12/23 completed Not Available Not Available Not Available nitrofurant oin monohydrate /macrocryst als 100 mg capsule TAKE 1 CAPSULE BY MOUTH EVERY 12 HOURS active Not Available Not Available No t Available ibandronate 150 mg tablet 10/27 completed Not Available Not Available Not Available B Complex 01/19 completed Not Available Not Available Not Available Calcium 500 01/19 completed Not Available Not Available Not Available One A Day Vitamin 01/19 completed Not Available Not Available Not Available Symbicort 80 mcg-4.5 mcg/actuati on HFA aerosol inhaler INHALE 2 PUFFS BY MOUTH EVERY 12 HOURS active Not Available Not Available No t Available cholecalcif ty (vitamin D3) 1,250 mcg (50,000 unit) capsule TAKE 1 CAPSULE BY MOUTH ONCE WEEKLY 12/23 completed Not Available Not Available Not Available CoQ-10 01/19 completed Not Available Not Available Not Available Myrbetriq 25 mg tablet,exte nded release 25 MG ORALLY DAILY active Not Available Not Available No t Available Fluvirin 9632-9990 45 mcg (15 mcg x 3)/0.5 mL intramuscul ar suspension 10/27 completed Not Available Not Available Not Available Glucosamine Chondroitin 01/19 completed Not Available Not Available Not Available Fish Oil 1,200 mg (144 mg-216 mg) capsule Take by oral route. 01/19 completed Not Available Not Available Not Available Vitals Date Recorded Body mass index (BMI) Body height Oxygen saturation Oxygen saturation in Arterial blood by Pulse oximetry Heart rate Body temperature Body weight Systolic blood pressure Diastolic blood pressure Provider Name and Address Organization Details Last Updated DateTime 1 31.7 kg/m2 160.02 cm 96 % 96 % 100 /min 99.8 [degF] 92859.0 3 g 158 mm[Hg] 100 mm[Hg] Not Available [facility] 3 12:52:02 Date Recorded Body mass index (BMI) Body height Heart rate Body temperature Body weight Systolic blood pressure Diastolic blood pressure Provider Name and Address Organization Details Last Updated DateTime 1 31.7 kg/m2 160.02 cm 67 /min 98.7 [degF] 60124.0 3 g 172 mm[Hg] 100 mm[Hg] Not Available [facility] 3 12:52:02 Date Recorded Body temperature Body weight Oxygen saturation Oxygen saturation in Arterial blood by Pulse oximetry Heart rate Systolic blood pressure Diastolic blood pressure Provider Name and Address Organization Details Last Updated DateTime 3 98.1 [degF] 79657.5 6 g 89 % 89 % 74 /min 174 mm[Hg] 92 mm[Hg] Karissa Cordova MA [place] [facility] 3 17:16:35 Social History Question Answer Notes LastModified by Organizat ion Details LastModified Time Tobacco Smoking Status Former Smoker Not Available [facility] 04/28/2022 12:49:56 What Is Your Level Of Alcohol Consumption? Moderate [id number] Information not available 04/28/2022 What Is Your Level Of Caffeine Consumption? Moderate [id number] Information not available 04/28/2022 When Did You Quit Smoking? 6-10yearssinc elastcigarett e [id number] Information not available 04/28/2022 Have You Ever Been Counseled For Unhealthy Alcohol Use? No [id number] Information not available 04/28/2022 Do You Use Any Illicit Or Recreational Drugs? No [id number] Information not available 04/28/2022 Has Tobacco Cessation Counseling Been Provided? No [id number] Information not available 04/28/2022 Do You Or Have You Ever Used Any Other Forms Of Tobacco Or Nicotine? No [id number] Information not available 04/28/2022 Sex: Unknown Functional Status None recorded. Mental Status None recorded. Family History Relationship Description Onset Age of this Age Resolved Age Notes LastModified by Organization Details LastModified Time Brother Malignant tumor of kidney [id number] Not available 04/28/2022 12:50:01 Mother Malignant tumor of breast [id number] Not available 04/28/2022 12:50:01 Unspecified Relation Diabetes mellitus [id number] Not available 04/28/2022 12:50:01 Unspecified Relation Heart disease [id number] Not available 04/28/2022 12:50:01 Unspecified Relation Hypertensive disorder [id number] Not available 04/28/2022 12:50:01 Medical History Condition Response CANCER: SPECIFY Y COPD Y HYPERTENSION Y Gynecological HistoryNo gynecological history recorded. Obstetrics History GPAL:G 0 P 0 0 0 0 Past Encounters Encounter ID Performer Location Encounter Start Date Encounter Closed Date Diagnosis/Indication Diagnosis SNOMED-CT Code Diagnosis ICD10 Code [id number] [facility] [address] [address] 10/27/2020 00:00:00 10/27/2020 10:39:40 [id number] [facility] [address] [address] 12/23/2020 00:00:00 12/23/2020 15:23:13 [id number] Vance Guzmán MD [facility] [address] [address] 09/21/2022 16:27:19 09/21/2022 17:37:53 Recurrent urinary tract infection 340491359 N39.0 Health Concerns Section Related Observation LastModified by Organization Detai ls LastModified Time None Recorded Concern Status LastModified by Organization Details LastModified Time None Recorded Advance Directives Directive None Recorded Payers Encounter Date Sequence Insurance Name Policy Number Policy Demarco Covered Member ID Demarco Member ID Guarantor Name 09/21/2022 1 [employer] [id number] Roxana Andersen [id number] Roxana Andersen Notes Date Note Type Note Provider Name and Address Organization Details Recorded Time 09/21/2022 text/html 1Paukayleen i s here for complaints of recurrent urinary tract infections. She states she has had 3 urinary tract infections within the past 3 years. She said 2 she states within the last 6 months. Her symptoms when she has a UTI consist of urgency frequency dysuria and suprapubic discomfort. 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 She states she had reconstruction of the perianal and vaginal regions and has to apply moisturizing cream to this area every day. Her urinalysis today shows no note nitrites no blood postvoid residual of 37 cc. She has small leukocytes. She denies any hematuria dysuria fevers or chills. No abdominal pain or back pain. She had CT of the chest abdomen pelvis 10/31/2019 at the [facility] radiology at [facility] which showed no abnormalities. She does not know the organsims, I have no culture results.12/23/20Pt returns with 2 more infections. She thinks she is going to do better with new barrier cream. She finished abx a week ago and is still fine. No flank pain. She didnt want to have cysto.09/21/22PT returns with same problem but thinks she is better with cream. She has had 2 infections in last 6 months, no hematuria. No fever or chills. Vance Guzmán MD [address] [place] [address], [place], [address], [place] [facility] 09/21/2022 17:46:01 OBGyn Episode No OBEpisode recorded.
--- OUTSIDE RECORDS SUMMARY | 2024-02-28 08:59 | XMS_ITS | Clinical Summary ---
Author Organization [facility] Address [address] [place] [address] Care Team Providers Care Flight Tower Dispatcher Name Role Phone Heron Ricci DO Primary Care Provider [phone] Source Comments [facility],non-owned Affiliates and Associated Physician Practices is amultiple site organization consisting of ambulatory clinics and hospital sitesin [place], [place], [place] and [place]. This disclosure is being madepursuant to the Care Everywhere program and may not contain all information available regarding this patient. Last updated 17.[facility] Allergies Active Allergy Reactions Criticality Noted Date Comments Codeine Nausea and/or Vomiting Low 12/04/2008 Reaction: NAUSEA, Sulfa Drugs Anaphylaxis High 07/06/2022 Medications * Be aware that medications may not be up to date on this document. Alwaysverify current medications with the patient. Medication Sig Dispensed Refills Start Date End Date Status albuterol HFA (Proventil; Ventolin; Proair) 108 (90 Base) MCG/ACT inhaler INHALE 2 PUFFS BY MOUTH EVERY 4 TO 6 HOURS NEEDED FOR SHORTNESS OF BREATH OR WHEEZING 05/24/2022 Active Symbicort 80-4.5 MCG/ACT inhaler INHALE 2 PUFFS BY MOUTH EVERY 12 HOURS 06/19/2022 Active Ascorbic Acid 100 MG Take 1 (one) tablet by mouth Two times a week Active vitamin D3 (Cholecalciferol) (25 MCG) 1000 UNIT capsule Take 1 (one) capsule by mouth Two times a week Active Coenzyme Q10 10 MG Take 10 mg by mouth Two times a week Active hydroCHLOROthiazide (Hydrodiuril) 25 MG tablet Take 1 (one) tablet by mouth as needed 09/21/2021 Active losartan (Cozaar) 100 MG tablet Take 1 (one) tablet by mouth once daily 06/25/2022 Active meloxicam (Mobic) 15 MG tablet Take 1 (one) tablet by mouth once daily 06/04/2022 Active naproxen sodium (Aleve) 220 MG tablet Take 1 (one) tablet by mouth as needed Active Vitamin E (Vitamin E/D-Alpha Natural) 268 MG (400 UNIT) CAPS Take 400 Units by mouth Two times a week Active GLUCOSAMINE CHONDROITIN COMPLX PO Act laura B Complex Vitamins (VITAMIN B COMPLEX PO) Take by mouth Two times a week Active Fraser-3 1000 MG Take by mouth Two times a week Active Multiple Vitamin (MULTIVITAMIN ADULT PO) Take by mouth Two times a week Active Active Problems Problem Noted Date Diagnosed Date Acute postoperative abdominal pain 11/16/2022 11/16/2022 S/P exploratory laparotomy 11/16/202211/16 Colostomy care 11/17/2017 11/16/2022 HTN (hypertension) 11/11/2017 11/16/2022 History of anal cancer 11/01/2017 3 Other specified counseling 10/07/201711/16 History of rectal cancer 09/29/2016 023 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 (FLUZONE HIGH-DOSE QUADRIVALENT; 65Y+), 0.7 ML (HD-IIV4) 11/27/2018,11/27/2017,11/12/2016 Pneumococcal Pcv13 Conj 12/01/2018 Social History Tobacco Use Types Packs/Day Years Used Date Smoking Tobacco: Never Assessed Sex and Gender Information Value Date Recorded Sex Assigned at Not on file Gender Identity Not on file Sexual Orientation Not on file Last Filed Vital Signs Vital Sign Reading Time Taken Comments Blood Pressure 164/106 11/16/2022 8:31 AM CDT Pulse 77 11/16/2022 8:31 AM CDT Temperature 36.7 ??C (98 ??F) 11/16/2022 8:31 AM CDT Respiratory Rate - - Oxygen Saturation 97% 11/16/2022 8:31 AM CDT Inhaled Oxygen Concentration - - Weight 76.2 kg (168 lb) 11/16/2022 8:31 AM CDT Height 157.5 cm (5' 2 ) 11/16/2022 8:31 AM CDT Body Mass Index 30.73 11/16/2022 8:31 AM CDT Plan of Treatment Health Maintenance Due Date Last Done Comments BONE DENSITY TESTING 1950 COLOGUARD (AGES 45-75) - COLON CA SCREENING 1951 COLON MONITORING 1951 COLONOSCOPY - COLON CA SCREENING 1950 CT COLONOGRAPHY - COLON CA SCREENING 1950 Colorectal Cancer Screening 1950 FIT - COLON CA SCREENING 1950 FLEX SIG - COLON CA SCREENING 1950 LIPID TESTING 1950 MAMMOGRAM 1950 HEPATITIS C SCREENING 04/12/1969 DTAP/TDAP/TD VACCINES (1 - Tdap) 1970 ZOSTER VACCINE (1 of 2) 2001 PNEUMOCOCCAL VACCINE 65+ (2 of 2 - PPSV23 or PCV20) 12/02/2019 12/01/2018 DEPRESSION SCREENING 02/28/2023 MEDICARE AWV ? CALENDAR YEAR 2023 COVID-19 VACCINE (3 - season) 2023 04/14/2020, 03/31/2020 INFLUENZA VACCINE (#1) 2023 9, 11/27/2017, 11/12/2016, Additional history exists Respiratory Syncytial Virus (RSV) Vaccine Pt: or over 60 yrs (1 - 1-dose 75+ series) 2026 HEPATITIS B VACCINE Aged Out No longe r eligible based on patient's age to complete this topic HIB VACCINE Aged Out No longer eligi ble based on patient's age to complete this topic HPV VACCINE Aged Out No longer eligi ble based on patient's age to complete this topic MENINGOCOCCAL VACCINE Aged Out No carissa kira eligible based on patient's age to complete this topic Care Teams Flight Tower Dispatcher Relationship Specialty Start Date End Date Heron Ricci DO PCP - General 07/06/22
--- OUTSIDE RECORDS SUMMARY | 2024-02-28 08:59 | XMS_ITS | Encounter Summary ---
Author Organization [facility] Address [address] [place] [address] Care Team Providers Care Microchip Specialist Name Role Phone Heron Ricci DO Primary Care Provider [phone] Reason for Visit * Reason Comments Weakness * Consult, Test & Treat (Routine) - Closed Specialty Diagnoses / Procedures Referred By Emilia t Referred To Contact Neurology Diagnoses Arm weakness Heron Ricci, DO [address] [place] [address] Catarino Quick MD [address] [place] [address] [place] [address] Referral ID Status Reason Start Date Expiration Date Visits Re quested Visits Authorized [id number] Closed 11/16/2022 11/16/2023 12 12 Encounter Details Date Type Department Care Team (Late st Contact Info) Description 11/16/2022 9:00 AM CDT Office Visit [facility] - Neurology [address] [place] [address], [place] [address] Catarino Quick MD [address] [place] [address] [place] [address] Neuropathy (Primary Dx); Right arm weakness Social History Tobacco Use Types Packs/Day Years Used Date Smoking Tobacco: Never Assessed Sex and Gender Information Value Date Recorded Sex Assigned at Not on file Gender Identity Not on file Sexual Orientation Not on file documented as of this encounter Last Filed Vital Signs Vital Sign Reading [...] Mass Index 30.73 11/16/2022 8:31 AM CDT documented in this encounter Progress Notes * Catarino Quick MD - 11/16/2022 9:00 AM CDT Images from the original note were not included. Neurology Clinic Note ?? Date of Encounter: 11/16/22 Date of last encounter: 07/06/22 ?? Chief Complaint Evaluation of ALS ?? Brief Hx: 72yo woman presents for evaluation of ALS. ?? R-hand dominant. ?? 2 years ago, noticed tingling in R hand and weakness. Had difficulty using right hand to hold objects, put on make-up, comb hair, etc. Occurred with gradual onset. Within a couple months, started to have weakness of the R arm. She could not lift the arm past 90 degrees. No sensory symptoms in arm. Tingling then resolved in R hand but continued to have weakness in R hand. Told PCP about symptoms, received CT of arm, unsure of results but believes did not see anything. Went to physical therapy for 12 weeks, did not notice benefit. 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 CT cervical spine and CT myelogram done. ?? Dr. Gaona ([facility]) did a NCS/EMG on 04/02/22. This showed severe chronic and subacute denervation inR C6 nerve root distribution. mild chronic denervation in right C5, C7 and C8 nerve root distributions. no fasciculation potentials. He was concerned for ALS and recommended evaluation by neuromuscular specialist. ?? Denies vision changes, ptosis, dysphagia, speech changes, numbness, tingling, headaches, urinary/bowel incontinence, saddle anesthesia, gait abnormalities. ?? INTERVAL HX: No changes in motor or sensory of Rue. Patient reports her symptoms have not progressed in any matter. She would like to be evaluated by surgery after imaging is completed. See updated labs in workupbelow. Exam: Mental status: Oriented to Person, Place, Time, Situation Commands: Able to follow 2-step commands Fluency, comprehension, insight, repetition intact ?? Cranial nerves: Pupils react 3mm --> 2mm to light Extraocular movements are full, no nystagmus or gaze preference/deviation Facial sensation intact V1-V3, facial movement intact and symmetric Trapezius elevation normal bilaterally, tongue protrusion normal and midline ?? Motor: Neck flexors - 5/5 Neck extensors - 5/5 ?? Upper Extremity Muscles, Nerve & Root Right Left SA: Deltoids muscle, Axillary nerve, C5-6 1 5 EF: Biceps muscle, Musculocutaneous nerve, C5-6 1 5 EE: Triceps muscle, radial nerve, C7 5 5 WF: Wrist flexors muscles, median-ulnar nerves, C7-8 5 5 WE: Wrist extensors muscles, radial nerve, C7 4 5 FE: Finger extensors muscles, radial nerve, C7 5 5 FF: Finger flexors muscles, median & ulnar nerves, C8-T1 5 5 IO: Interossei muscles, ulnar nerves, C8-T1 4 5 OP: Opponens Pollicis muscle, median nerve, C8-T1 5 5 APB: Abductor pollicis Brevis, median nerve, C8-T1 5 5 ADM: Abductor Digiti Minimi, ulnar nerve, C8-T1 roots 5 5 ? Lower Extremity Muscles, Nerve & Root Right Left HF: Iliopsoas muscle, lumbar plexus, L2-3?? 5 5 Hip Add: Adductor Longus,??obturator nerve,??L2-3-4 5 5 KE: Quadriceps muscle, femoral nerve, L2-L3-L4 5 5 KF: Hamstring muscles, tibial and peroneal nerves, L5-S1 5 5 DF: Tibialis anterior muscle, peroneal nerve, L5 root 5 5 EXV: Peroneal longus muscle, peroneal nerve, L5 5 5 PF: Soleus-gastrocnemius muscles, tibialis posterior nerve, S1 5 5 INV: Tibialis posterior, tibialis posterior nerve, S1 5 5 EHL: Extensor Hallucis longus, peroneal nerve, L5 root 5 5 ?? Atrophy of right bicep and first right lumbrical noted Mild thenar muscle atrophy on right hand ?? Sensory: --Light touch, vibration, proprioception intact in all limbs --Noxious stimuli, temperature intact in all limbs --2+ triceps, absent biceps, 2+ Brachioradialis, 2+ in left arm and legs --flexor plantars bilaterally ?? Cerebellar/Gait: No ataxia on [id number]-[id number]-pxhisx bilaterally, no tremor noted Rapid alternating movements and qrwx-yose-dsgh wnl Stance, posture, arm swing normal during ambulation Normal gait, tandem, heel and toe gait within normal limits Romberg sign absent ?? Previous Evaluation Total CK - 7 Neuro-filament light chain: negative NS6S - negative GD1a - negative EMG/NCV Neurofilament light chain: 33 (borerline elevated) Assessment: 72yo f presents w/ proximal more than distal R arm/shoulder weakness and forearm numbness. She has h/o cancer and s/p chemotherapy. 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 Examination reveals lower motor neuron signs including atrophy and hyporeflexia. No bulbar symptoms, left upper and bilateral lower extremities are normal. 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 There is also a right sided L5 radiculopathy, however, not fufilling criteria of motor neuron disease. ?? Plan: - RTC in 6 months - will review images of CT myelogram chest and UE done at [facility]. Need to acquire copy -US median/ulnar nerve to assess plexopathy - Referral to spine surgery ?? Case findings discussed with Dr. Quick, Neurology Attending. Attending Note: I have seen and examined the patient with the resident. I confirm the history, physical findings, assessment, and plan as documented. Time spent with patient/proxy: I personally spent 43 minutes on 11/16/22 preparing to see the patient (e.g. reviewing chart, review of tests), obtaining and/or reviewing the separately obtained history, performing a medically necessary and appropriate examination and evaluation, counseling and educating the patient/family/caregiver, ordering medications, tests, or procedures, documenting in the patient record, and communicating results to the patient/family/caregiver. Catarino Quick MD., PhD. documented in this encounter Plan of Treatment Not on file documented as of this encounter Visit Diagnoses Diagnosis Neuropathy- Primary Mononeuritis of unspecified site Right arm weakness Other musculoskeletal symptoms referable to limbs documented in this encounter Care Teams Microchip Specialist Relationship Specialty Start Date End Date Heron Ricci DO PCP - General 07/06/22 documented as of this encounter
--- OUTSIDE RECORDS SUMMARY | 2024-02-28 08:59 | XMS_ITS | Referral Summary ---
Author Organization [facility] Address [address] [place] [address] Care Team Providers Care Commissary Agent Name Role Phone Heron Ricci DO Primary Care Provider [phone] Source Comments [facility],non-owned Affiliates and Associated Physician Practices is amultiple site organization consisting of ambulatory clinics and hospital sitesin [place], [place], [place] and [place]. This disclosure is being madepursuant to the Care Everywhere program and may not contain all information available regarding this patient. Last updated 17.[facility] Allergies Active Allergy Reactions Criticality Noted Date [...] by mouth Two times a week Active Conway-3 1000 MG Take by mouth Two times [...] Immunizations Name Administration Dates Next Due Thalia [employer] primary monoval ent 12+ yr 0.3mL Purple [...] 11/16/2022 8:31 AM CDT Plan of Treatment Not on file Care Teams Commissary Agent Relationship Specialty Start Date End Date Heron Ricci DO PCP - General 07/06/22
--- OUTSIDE RECORDS SUMMARY | 2024-02-28 08:59 | XMS_ITS | Encounter Summary ---
Author Organization [facility] Address [address] [facility] [place] [address] Care Team Providers Care Welder Fitter Apprentice Name Role Phone Heron Ricci DO Primary Care Provider [phone] Encounter Details Date Type Department Care Team (Latest Contact Info) Description 11/16/2022 Travel Social History Tobacco Use Types Packs/Day Years Used Date Smoking Tobacco: Never Assessed Sex and Gender Information Value Date Recorded Sex Assigned at Not on file Gender Identity Not on file Sexual Orientation Not on file documented as of this encounter Plan of Treatment Not on file documented as of this encounter Visit Diagnoses Not on filedocumented in this encounter Care Teams Welder Fitter Apprentice Relationship Specialty Start Date End Date Heron Ricci DO PCP - General 07/06/22 documented as of this encounter
--- OUTSIDE RECORDS SUMMARY | 2024-02-28 08:59 | XMS_ITS | Encounter Summary ---
Author Organization [facility] Address [address] [facility] [place] [address] Care Team Providers Care Spring Machine Operator Name Role Phone Heron Ricci DO Primary Care Provider [phone] Reason for Referral * Neurology (Routine) - Closed Specialty Diagnoses / Procedures Referred By Contac t Referred To Contact Neurology Diagnoses Right arm weakness Procedures EMG WITH NERVE CONDUCTION STUDY Catarino Quick MD [address] [place] [address] [address] [place] [address] [facility] Eeg/Emg [address] [place] [address] Referral ID Status Reason Start Date Expiration Date Visits Re quested Visits Authorized [id number] Closed 07/06/2022 07/06/2023 1 1 Reason for Visit * Reason Comments ALS Encounter Details Date Type Department Care Team (Late st Contact Info) Description 07/06/2022 1:00 PM CDT Office Visit [facility] [address] [place] [address], [place] [address] Catarino Quick MD [address] [place] [address] [address] [place] [address] Right arm weakness (Primary Dx) Social History Tobacco Use Types Packs/Day Years Used Date Smoking Tobacco: Never Assessed Sex and Gender Information Value Date Recorded Sex Assigned at Not on file Gender Identity Not on file Sexual Orientation Not on file COVID-19 Exposure Response Date Recorded In the last 10 days, have yo u been in contact with someone who was confirmed or suspected to have Coronavirus/COVID-19? No / Unsure 07/06/2022 2:12 PM CDT documented as of this encounter Last Filed Vital Signs Vital Sign Reading Time Taken Comments Blood Pressure 126/80 07/06/2022 12:46 PM CDT Pulse 89 07/06/2022 12:46 PM CDT Temperature 37.1 ??C (98.8 ??F) 07/06/2022 12:46 PM C DT Respiratory Rate - - Oxygen Saturation 92% 07/06/2022 12:46 PM CDT copd Inhaled Oxygen Concentration - - Weight 76.3 kg (168 lb 3.2 oz) 07/06/2022 12:46 PM CDT Height - - Body Mass Index - - documented in this encounter Patient Instructions * Patient Instructions* Shayy Marie MD - 07/06/2022 1:48 PM CDT Roxana Andersen Please review the recommendations below: Obtain the bloodwork we have ordered. We will repeat the nerve conduction study. Please plan to follow up in clinic in 3 months, but feel free to contact earlier with questions andconcerns [facility] documented in this encounter H&P Notes * Shayy Marie MD - 07/06/2022 1:03 PM CDT Neurology Clinic Note Date of Encounter: 07/06/22 Chief Complaint Evaluation of ALS HPI: 72yo woman presents for evaluation of ALS. R-hand dominant. 2 years ago, noticed tingling in R [...] CT cervical spine and CT myelogram done. Dr. Gaona ([facility]) did a NCS/EMG on 04/02/22. This showed severe chronic and subacute denervation in R C6 nerve root distribution. mild chronic denervation in right C5, C7 and C8 nerve root distributions. no fasciculation potentials. He was concerned for ALS and recommended evaluation by neuromuscular specialist. Denies vision changes, ptosis, dysphagia, speech changes, numbness, tingling, headaches, urinary/bowel incontinence, saddle anesthesia, gait abnormalities. Medical Hx- COPD Surgical Hx- subarachnoid hemorrhage aneurysm clipping (2005) Allergies- sulfa drugs, codefine Family Hx- mother had essential tremor Social Hx- tobacco: denies, alcohol: denies, illicit drugs: denies, occupation: retired, previouslyworked in [employer] Exam: Mental status: Oriented to Person, Place, Time, Situation Commands: Able to follow 2-step commands Fluency, comprehension, insight, repetition intact Cranial nerves: Pupils react 3mm --> 2mm to light Extraocular movements are full, no nystagmus or gaze preference/deviation Facial sensation intact V1-V3, facial movement intact and symmetric Trapezius elevation normal bilaterally, tongue protrusion normal and midline Motor: Neck flexors - 5/5 Neck extensors - 5/5 Upper Extremity Muscles, Nerve & Root Right [...] Minimi, ulnar nerve, C8-T1 roots 5 5 R triceps 20 R biceps 7 R tibialis anterior 40 L tibialis anterior 50 Lower Extremity Muscles, Nerve & Root Right Left HF: Iliopsoas muscle, lumbar plexus, L2-3 5 5 Hip Add: Adductor Longus, obturator nerve, L2-3-4 5 5 KE: Quadriceps muscle, femoral nerve, [...] longus, peroneal nerve, L5 root 5 5 Atrophy of right bicep and first right lumbrical noted Mild thenar muscle atrophy on right hand Sensory: Light touch, vibration, proprioception intact in all limbs Noxious stimuli, temperature intact in all limbs Absent reflexes in R arm, 2+ in left arm and legs flexor plantars bilaterally Cerebellar/Gait: No ataxia on xngbmy-fpwd-tcouli bilaterally, no tremor noted Rapid alternating movements and pbxa-pogj-hnaf wnl Stance, posture, arm swing normal during ambulation Normal gait, tandem, heel and toe gait within normal limits Romberg sign absent Assessment: 72yo woman who presents with R arm weakness. It is a progressive, asymmetric flaccid paresis over the last 2 years. Examination reveals lower motor neuron signs including atrophy and hyporeflexia. Nobulbar symptoms, left upper and padmini lower extremities are normal. No B/B, The differential diagnosis is broad and include limited form of motor neuron disease (acquired vs hereditary), MMN, and cervical radiculopathy. 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 Plan as below. Plan: - motor neuropathy panel (checking for NfL, NS6S and GD1a) - check total CK - repeat NCS/EMG of bilateral arms - RTC in 3 months Case findings discussed with Dr. Quick, Neurology Attending. Shayy Marie MD Neurology, PGY-4 07/06/2022 Attending Note: I have seen and examined the patient with the resident. I confirm the history, physical findings, assessment, and plan as documented. Time spent with patient/proxy: I personally spent 70 minutes on 07/06/22 preparing to see the patient(e.g. reviewing chart, review of tests), obtaining and/or reviewing the separately obtained history, performing a medically necessary and appropriate examination and evaluation, counseling and educating the patient/family/caregiver, ordering medications, tests, or procedures, documenting in the patient record, and communicating results to the patient/family/caregiver. Catairno Quick MD., PhD. documented in this encounter Plan of Treatment Scheduled Orders Name Type Priority Associated Diagnoses Orde r Schedule EMG WITH NERVE CONDUCTION STUDY Neurology Routine Right arm weakness 1 Occurrences starting 07/06/2022 until 07/07/2023 documented as of this encounter Results * CK BLOOD (07/06/2022 2:51 PM CDT) Pathologist [facility] CK Total 71 30 - 200 U/L 07/06/2022 3:47 PM CDT [facility] Blood BLOOD SPECIMEN / Unknown Lab Venipuncture / Unknown 07/06/2022 2:51 PM CDT 07/06/2022 3:19 PM CDT Catarino Quick MD LAB - CHEMISTRY [facility] [address] [address], [facility] [phone] * MOTOR NEUROPATHY PANEL (07/06/2022 2:51 PM CDT) Pathologist [facility] Motor Neuropathy See Scanned Report 07/30/2022 12:31 PM CDT [facility] Blood BLOOD SPECIMEN / Unknown Lab Venipuncture / Unknown 07/06/2022 2:51 PM CDT 07/06/2022 3:18 PM CDT Catarino Quick MD LAB - CHEMISTRY [facility] [phone] documented in this encounter Visit Diagnoses Diagnosis Right arm weakness- Primary Other musculoskeletal symptoms referable to limbs documented in this encounter Care Teams Spring Machine Operator Relationship Specialty Start Date End Date Heron Ricci DO PCP - General 07/06/22 documented as of this encounter
--- OUTSIDE RECORDS SUMMARY | 2024-02-28 08:59 | XMS_ITS | Encounter Summary ---
Author Organization [facility] Address [address] [place] [address] Care Team Providers Care Measuring Machine Tender Name Role Phone Heron Ricci DO Primary Care Provider [phone] Reason for Visit * Neurology (Routine) - Closed Specialty Diagnoses / Procedures Referred By Contac t Referred To Contact Neurology Diagnoses Right arm weakness Procedures EMG WITH NERVE CONDUCTION STUDY Catarino Quick MD [address] [facility] [address] [place] [address] [facility] Eeg/Emg [address] [place] [address] Referral ID Status Reason Start Date Expiration Date Visits Re quested Visits Authorized [id number] Closed 07/06/2022 07/06/2023 1 1 Encounter Details Date Type Department Care Team (Latest Contact Info) Description 08/12/2022 8:16 AM CDT - 08/12/2022 11:59 PM CDT Hospital Encounter [facility] EEG/EMG [address] [place] [address] Catarino Quick MD [address] [facility] [address] [place] [address] Discharge Disposition: Home or Self Care Social History Tobacco Use Types Packs/Day Years Used Date Smoking Tobacco: Never Assessed Sex and Gender Information Value Date Recorded Sex Assigned at Not on file Gender Identity Not on file Sexual Orientation Not on file documented as of this encounter Medications at Time of Discharge Medication Sig Dispensed Refills Start Date End Date albuterol HFA (Proventil; Ventolin; Proair) 108 (90 Base) MCG/ACT inhaler INHALE 2 PUFFS BY MOUTH EVERY 4 TO 6 HOURS NEEDED FOR SHORTNESS OF BREATH OR WHEEZING 05/24/2022 Ascorbic Acid 100 MG Take 1 (one) tablet by mouth Two times a week B Complex Vitamins (VITAMIN B COMPLEX PO) Take by mouth Two times a week Coenzyme Q10 10 MG Take 10 mg by mouth Two times a week GLUCOSAMINE CHONDROITIN COMPLX PO hydroCHLOROthiazide (Hydrodiuril) 25 MG tablet Take 1 (one) tablet by mouth as needed 09/21/2021 losartan (Cozaar) 100 MG tablet Take 1 (one) tablet by mouth once daily 06/25/2022 meloxicam (Mobic) 15 MG tablet Take 1 (one) tablet by mouth once daily 06/04/2022 Multiple Vitamin (MULTIVITAMIN ADULT PO) Take by mouth Two times a week naproxen sodium (Aleve) 220 MG tablet Take 1 (one) tablet by mouth as needed [place]-3 1000 MG Take by mouth Two times a week Symbicort 80-4.5 MCG/ACT inhaler INHALE 2 PUFFS BY MOUTH EVERY 12 HOURS 06/19/2022 vitamin D3 (Cholecalciferol) (25 MCG) 1000 UNIT capsule Take 1 (one) capsule by mouth Two times a week Vitamin E (Vitamin E/D-Alpha Natural) 268 MG (400 UNIT) CAPS Take 400 Units by mouth Two times a week documented as of this encounter Procedure Notes * Catarino Quick MD - 08/12/2022 11:59 PM CDTProcedure(s): EMG Images from the original note were not included. [address] [address] Electrodiagnostic testing was explained to the patient, and he/she/they were allowed adequate opportunity to ask questions or discuss EDX testing evaluation. The patient verbalized consent and gave permission for the Electrodiagnostic testing. Full Name: Roxana Andersen Procedure #: [id number] Gender: Female Date of : 1950 Visit Date: 08/12/2022 08:37 Age: 72 Years Examining Physician: Catarino Quick MD Referring Physician: Catarino Quick MD Technologist: JACKIE/KEELEY Reason for Test: R arm weakness 72-year-old woman with a H sig for anal cancer s/p surgery/chemo 5 years ago on colostomy and brain aneurysm s/p clip (cannot get MRI). 2 years ago, noticed tingling in R hand and weakness. Had difficulty using right hand to hold objects, put on make-up, comb hair, etc. Occurred with gradual onset. Within a couple months, started to have weakness of the R arm. She could not lift the arm past 90degrees. No sensory symptoms in arm. Tingling then resolved in R hand but continued to have weakness in R hand. Told PCP about symptoms, received CT of arm, unsure of results but believes did not seeanything. Went to physical therapy for 12 weeks, did not notice benefit. 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 Symptoms have been static over the last year with no working of weakness. [facility] Nerve / Sites Rec. Site Onset Lat Peak Lat PP Amp Segments Distance Peak Diff Velocity Temp. ms ms ??V mm ms m/s ??C R Median - Digit II (Antidromic) 14 cm Wrist Dig II 3.2 4.2 31.5 Wrist - Dig II 140 43 33.3 Ref. <=3.4 >=7.0 Ref. >=44 L Median - Digit II (Antidromic) 14 cm Wrist Dig II 3.0 3.8 30.6 Wrist - Dig II 140 47 34.5 Ref. <=3.4 >=7.0 Ref. >=44 R Radial - Anatomical snuff box (Forearm) Forearm Wrist 2.0 2.5 23.4 Forearm - Wrist 100 51 Ref. <=2.5 >=15.0 Ref. >=53 L Radial - Anatomical snuff box (Forearm) Forearm Wrist 1.8 2.4 26.7 Forearm - Wrist 100 55 33 Ref. <=2.5 >=15.0 Ref. >=53 L Sural - Ankle (Calf) Calf Ankle 3.5 4.2 6.9 Calf - Ankle 140 40 32.2 Ref. <=4.8 >=5.0 Ref. >=45 R Sural - Ankle (Calf) Calf Ankle 3.6 4.5 10.5 Calf - Ankle 140 39 31.2 Ref. <=4.8 >=5.0 Ref. >=45 Median Palm Wrist 2.1 2.6 18.0 Median Palm - Wrist 80 39 33 Ref. <=2.2 >=40.0 Ref. >=53 Ulnar Palm Wrist 1.5 2.1 28.4 Ulnar Palm - Wrist 80 53 Ref. <=2.1 >=11.0 Ref. >=53 Median Palm - Ulnar Palm 0.6 Ref. <=0.4 L Median, Ulnar - Transcarpal comparison Median Palm Wrist 1.9 2.4 94.6 Median Palm - Wrist 80 41 34.1 Ref. <=2.2 >=40.0 Ref. >=53 Ulnar Palm Wrist 1.5 2.1 18.6 Ulnar Palm - Wrist 80 55 34.3 Ref. <=2.1 >=11.0 Ref. >=53 Median Palm - Ulnar Palm 0.4 34.3 Ref. <=0.4 MNC Nerve / Sites Muscle Latency Amplitude Segments Lat Diff Distance Velocity ms mV ms mm m/s L Median - APB Wrist APB 4.0 8.3 Wrist - APB 70 Ref. <=4.5 >=3.0 Ref. Elbow APB 7.9 6.1 Elbow - Wrist 3.9 200 51 Ref. Ref. >=48 R Median - APB Wrist APB 5.0 5.9 Wrist - APB 70 Ref. <=4.5 >=3.0 Ref. Elbow APB 9.5 5.9 Elbow - Wrist 4.5 200 44 Ref. Ref. >=48 L Ulnar - ADM Wrist ADM 2.5 10.0 Wrist - ADM 70 Ref. <=3.6 >=5.0 Ref. B.Elbow ADM 5.9 9.3 B.Elbow - Wrist 3.4 175 52 Ref. Ref. >=48 A.Elbow ADM 8.5 8.7 A.Elbow - B.Elbow 2.6 120 46 Ref. Ref. >=48 A.Elbow - Wrist 6.0 R Ulnar - ADM Wrist ADM 3.1 11.5 Wrist - ADM 70 Ref. <=3.6 >=5.0 Ref. B.Elbow ADM 6.4 11.6 B.Elbow - Wrist 3.2 170 53 Ref. Ref. >=48 A.Elbow ADM 8.6 11.3 A.Elbow - B.Elbow 2.2 110 49 Ref. Ref. >=48 A.Elbow - Wrist 5.5 R Peroneal - EDB Ankle EDB 4.4 2.1 Ankle - EDB 80 Ref. <=6.6 >=2.0 Ref. Fib head EDB 11.5 1.9 Fib head - Ankle 7.1 300 42 Ref. Ref. >=42 Pop fossa EDB 13.4 1.9 Pop fossa - Fib head 1.9 85 45 Ref. Ref. >=42 Pop fossa - Ankle 8.9 L Tibial - AH Ankle AH 4.0 4.4 Ankle - AH 80 Ref. <=6.6 >=2.0 Ref. Pop fossa AH 12.5 4.2 Pop fossa - Ankle 8.5 370 44 Ref. Ref. >=42 L Ulnar - FDI Wrist FDI 3.5 15.5 Wrist - FDI B.Elbow FDI 6.9 15.0 B.Elbow - Wrist 3.4 175 52 Ref. Ref. >=49 A.Elbow FDI 9.6 14.8 A.Elbow - B.Elbow 2.7 120 45 Ref. Ref. >=49 A.Elbow - Wrist 6.1 EMG EMG Summary Table Insertional Spontaneous Volitional MUAPs Muscle Nerve Roots Insertional Fib PSW Fasc Duration Amplitude Poly Recruitment R. Deltoid Axillary C5-C6 Normal 2+ None None Sl.Incr. Normal Few Reduced R. Triceps brachii Radial C6-C8 Increased None None None Sl.Incr. Normal Few Reduced R. Pronator teres Median C6-C7 Normal 1+ None None Sl.Incr. Sl.Incr. Few Reduced R. First dorsal interosseous Ulnar C8-T1 Normal 1+ None None Sl.Incr. Sl.Incr. Few Reduced R. Extensor digitorum communis Radial C7-C8 Normal None None None Sl.Incr. Sl.Incr. Few Reduced R. Vastus medialis Femoral L2-L4 Normal None None None Normal Normal None Normal R. Gastrocnemius (Medial head) Tibial S1-S2 Normal None None None Normal Normal None Normal R. Tibialis anterior Deep peroneal (Fibular) L4-L5 Normal None None None Normal Sl.Incr. Few Normal R. Gluteus medius Superior gluteal L4-S1 Normal None None None Sl.Incr. Sl.Incr. Few Reduced R. L5 paraspinal Spinal L5- Normal None None None R. T10 paraspinal Spinal T10- Normal None None None L. C7 paraspinal Spinal C7- Normal 1+ None None R. Trapezius (upper) Accessory (spinal) C3-C4 Normal None None None Normal Normal None Normal R. Sternocleidomastoid Accessory (spinal) C2-C4 Normal None None None Normal Normal None Normal Interpretation: 1- Bilateral median antidromic sensory nerve conduction studies recorded from digits 2 on both sides showed normal and symmetric SNAP amplitudes, normal conduction velocity on the left side and borderline slowed conduction velocity on the right side. 2- Bilateral radial antidromic sensory nerve conduction studies recorded from anatomical snuffbox on either side showed normal and symmetric SNAP amplitudes, normal conduction velocity on the left side and borderline slowed conduction velocity on the right side which is likely technical. 3- Bilateral sural antidromic sensory nerve conduction studies showed normal snap amplitudes with borderline slowed conduction velocities on both sides. 4- Bilateral median palmar orthodromic mixed nerve conduction studies showed prolonged peak latencies and borderline slowed conduction velocities on both sides. Bilateral ulnar palmar orthodromic mixed nerve conduction studies were normal. 5- The left median motor nerve conduction study recorded from abductor pollicis brevis muscle was normal. However, its distal latency was relatively prolonged. 6- The right median motor nerve conduction study recorded from abductor pollicis brevis muscles showed prolonged distal latency, normal CMAP amplitudes and borderline slowed conduction velocity at the forearm segment. 7- The left ulnar motor nerve conduction studies recorded from both FDI and ADM muscles showed normal distal latencies, normal CMAP amplitudes and normal conduction velocities at the forearm segment.However, conduction velocities were slowed across the elbow segment. 8- The right ulnar motor nerve conduction study recorded from ADM muscle was normal. 9- The right peroneal motor nerve conduction study recorded from EDB muscles showed low normal/small CMAP amplitudes with borderline normal conduction velocity at the foreleg and normal conduction velocity across the elbow segment. 10- The left tibial motor nerve conduction study recorded from AH muscle was normal. 11- Concentric needle EMG examination of the above listed muscles showed 1+ to 2+ fibs/positive sharp waves in a few muscles from the right upper extremity along with a few long-duration and high amplitude motor unit action potentials associated with reduced recruitment patterns mainly in the rightupper extremity. Conclusions: This electrodiagnostic study shows the following abnormalities. First, there is electrodiagnostic evidence of a right sided C6/C7/C8 radiculopathy if supported clinically. This conclusion is based on active denervation associated with chronic denervation changes noted in a few muscles from the right upper extremity proximal and distally including C7 paraspinal m uscle. 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 Needle EMG examination of the left upper extremity can be done for better characterization/localization of this ulnar neuropathy if indicated clinically. Third, there is electrodiagnostic evidence of bilateral distal median neuropathies across the wrists compatible with moderate to severe carpal tunnel syndrome on both sides right worse than left. This conclusion is based on absolutely/relatively prolonged distal latencies from bilateral median motor nerves and prolonged peak latencies from bilateral median palmar orthodromic mixed nerve responses. Fourth, borderline slowed conduction velocities from both sural nerves along with small/low normal CMAP amplitude of the right peroneal motor nerve may suggest a superimposed mild sensory predominantpolyneuropathy which could be related to her history of chemotherapy. Finally there is also electrodiagnostic evidence of right-sided L5 radiculopathy if supported clinically this conclusion is based on chronic reinnervation changes noted in the right tibialis anteriorand gluteus medius muscles. This study does not fulfill Awaji criteria for motor neuron disease however this possibility cannot be ruled out completely by this study. Clinical and imaging correlations are suggested. Catarino Quick MD documented in this encounter Plan of Treatment Not on file documented as of this encounter Visit Diagnoses Diagnosis Right arm weakness Other musculoskeletal symptoms referable to limbs documented in this encounter Care Teams Measuring Machine Tender Relationship Specialty Start Date End Date Heron Ricci DO PCP - General 07/06/22 documented as of this encounter
--- OUTSIDE RECORDS SUMMARY | 2024-02-28 08:59 | XMS_ITS | CONTINUITY OF CARE DOCUMENT ---
Author Name chito dale Address Unknown Organization [facility] Address [id number] [place] [address] [address] [place] [address] Phone [phone] Care Team Providers Care Pecan Sheller Name Role Phone James CASTRO, Mando Unavailable INSURANCE PROVIDERS Payer name Policy type / Coverage type Myah red alliance party ID [facility] [id number]
--- OUTSIDE RECORDS SUMMARY | 2024-02-28 08:59 | XMS_ITS | Encounter Summary ---
Author Organization [facility] Address [address] [facility] [place] [address] Care Team Providers Care Solder Technician Name Role Phone Heron Ricci DO Primary Care Provider [phone] Encounter Details Date Type Department Care Team (Latest Contact Info) Description 07/06/2022 Travel Social History Tobacco Use Types Packs/Day [...] PM CDT documented as of this encounter Plan of Treatment Not on file documented as of this encounter Visit Diagnoses Not on filedocumented in this encounter Care Teams Solder Technician Relationship Specialty Start Date End Date Heron Ricci DO PCP - General 07/06/22 documented as of this encounter
--- OUTSIDE RECORDS SUMMARY | 2024-02-28 08:59 | XMS_ITS | Encounter Summary ---
Author Organization [facility] Address [address] [facility] [address] Care Team Providers Care Section Leader And Machine Setter Name Role Phone Heron Ricci DO Primary Care Provider [phone] Encounter Details Date Type Department Care Team (Latest Contact Info) Description 08/12/2022 Travel Social History Tobacco Use Types Packs/Day Years Used Date Smoking Tobacco: Never Assessed Sex and Gender Information Value Date Recorded Sex Assigned at Not on file Gender Identity Not on file Sexual Orientation Not on file documented as of this encounter Plan of Treatment Not on file documented as of this encounter Visit Diagnoses Not on filedocumented in this encounter Care Teams Section Leader And Machine Setter Relationship Specialty Start Date End Date Heron Ricci DO PCP - General 07/06/22 documented as of this encounter
--- OUTSIDE RECORDS SUMMARY | 2024-02-28 08:59 | XMS_ITS | Encounter Summary ---
Author Organization [facility] Address [address] [facility] [place] [address] Care Team Providers Care Sewer Pipe Press Operator Name Role Phone Heron Ricci DO Primary Care Provider [phone] Reason for Visit * Reason Onset Date Comments Returned Call 11/18/2022 Encounter Details Date Type Department Care Team (Late st Contact Info) Description 11/18/2022 Telephone [facility] - Neurology [address] [place] [address], [facility] [place] [address] Catarino Quick MD [address] [place] [address] Returned Call Social History Tobacco Use Types Packs/Day Years Used Date Smoking Tobacco: Never Assessed Sex and Gender Information Value Date Recorded Sex Assigned at Not on file Gender Identity Not on file Sexual Orientation Not on file documented as of this encounter Miscellaneous Notes * Telephone Encounter - Melia Huang RN - 11/18/2022 9:58 AM CDT Returned patient call. Patient stated she and her have talked it over and they don't want to do the ultrasound of the right extremity and would like a referral to neurosurgery to see if she can have surgery to fix her symptoms. If the neurosurgeon says she's not a candidate for surgery thenshe will do the ultrasound. Patient states she's had so many tests done and nothing is giving her answers she tired and wants a fix. Will forward to Dr. Quick to review. documented in this encounter Plan of Treatment Not on file documented as of this encounter Visit Diagnoses Not on filedocumented in this encounter Care Teams Sewer Pipe Press Operator Relationship Specialty Start Date End Date Heron Ricci DO PCP - General 07/06/22 documented as of this encounter
--- OUTSIDE RECORDS SUMMARY | 2024-02-28 08:59 | XMS_ITS | Encounter Summary ---
Author Organization [facility] Address [address] [facility] [place] [address] Care Team Providers Care International Flight Attendant Name Role Phone Heron Ricci DO Primary Care Provider [phone] Reason for Visit * Reason Onset Date Comments Order 11/16/2022 Encounter Details Date Type Department Care Team (Late st Contact Info) Description 11/16/2022 Telephone [facility] - Neurology [address] [place] [address], [place] [phone] Catarino Quick MD [address] [place] [phone] Order Social History Tobacco Use Types Packs/Day Years Used Date Smoking Tobacco: Never Assessed Sex and Gender Information Value Date Recorded Sex Assigned at Not on file Gender Identity Not on file Sexual Orientation Not on file documented as of this encounter Miscellaneous Notes * Telephone Encounter - Winnie Pena RN - 11/16/2022 9:32 AM CDT or documented in this encounter Plan of Treatment Not on file documented as of this encounter Visit Diagnoses Diagnosis Right arm weakness- Primary Other musculoskeletal symptoms referable to limbs documented in this encounter Care Teams International Flight Attendant Relationship Specialty Start Date End Date Heron Ricci DO PCP - General 07/06/22 documented as of this encounter
--- OUTSIDE RECORDS SUMMARY | 2024-02-28 08:59 | XMS_ITS | Encounter Summary ---
Author Organization [facility] Address [address] [facility] [address] Care Team Providers Care College Administrator Name Role Phone Heron Ricci DO Primary Care Provider [phone] Encounter Details Date Type Department Care Team (Latest Contact Info) Description 07/06/2022 2:15 PM CDT - 07/06/2022 11:59 PM CDT Hospital Encounter [facility] OP [facility] [address] [place] [phone] Catarino Quick MD [address] [place] [address] Discharge Disposition: Home or Self Care Social History Tobacco Use Types Packs/Day Years Used Date Smoking Tobacco: Never Assessed Sex and Gender Information Value Date Recorded Sex Assigned at Not on file Gender Identity Not on file Sexual Orientation Not on file COVID-19 Exposure Response Date Recorded In the last 10 days, have sarah u been in contact with someone who was confirmed or suspected to have Coronavirus/COVID-19? No / Unsure 07/06/2022 2:12 PM CDT documented as of this encounter Medications at [...] 1 (one) tablet by mouth as needed [place]-3 1000 MG Take by mouth Two times [...] a week documented as of this encounter Plan of Treatment Not on file documented as of this encounter Procedures Procedure Name Priority Date/Time Associated Diagnosis Comments MOTOR NEUROPATHY PANEL Routine 07/06/2022 2:51 PM CDT Right arm weakness CK BLOOD Routine 07/06/2022 2:51 PM CDT Right arm weakness documented in this encounter Results * CK BLOOD (07/06/2022 2:51 PM CDT) CK Total 71 30 - 200 U/L 07/06/2022 3:[address] [facility] Blood BLOOD SPECIMEN / Unknown Lab Venipuncture / Unknown 07/06/2022 2:51 PM CDT 07/06/2022 3:19 PM CDT Catarino Quick MD LAB - CHEMISTRY [facility] [address] [place] [phone], [facility] [phone] * MOTOR NEUROPATHY PANEL (07/06/2022 2:51 PM CDT) Motor Neuropathy See Scanned Report 07/30/2022 12:31 PM CDT [facility] Blood BLOOD SPECIMEN / Unknown Lab Venipuncture / Unknown 07/06/2022 2:51 PM CDT 07/06/2022 3:18 PM CDT Catarino Quick MD LAB - CHEMISTRY [facility] [phone] documented in this encounter Visit Diagnoses Diagnosis Right arm weakness Other musculoskeletal symptoms referable to limbs documented in this encounter Care Teams College Administrator Relationship Specialty Start Date End Date Heron Ricci DO PCP - General 07/06/22 documented as of this encounter
--- OUTSIDE RECORDS SUMMARY | 2024-02-28 08:59 | XMS_ITS | Patient Health Summary ---
Author Organization [facility] Address [address] [place] [address] Care Team Providers Care Home Visitor Home Base Head Start Name Role Phone Heron Ricci DO Primary Care Provider [phone] Note from [facility],non-owned Affiliates and Associated Physician Practices is amultiple site organization consisting of ambulatory clinics and hospital sitesin [place], [place], [place] and [place]. This disclosure is being madepursuant to the Care Everywhere program and may not contain all information available regarding this patient. Last updated 17.[facility] Allergies * Codeine(Nausea and/or Vomiting) -Low Criticality * Sulfa Drugs(Anaphylaxis) -High Criticality Medications * Be aware that medications may not be up to date on this document. Alwaysverify current medications with the patient. * albuterol HFA (Proventil; Ventolin; Proair) 108 (90 Base) MCG/ACT inhaler (Started 05/24/2022) INHALE 2 PUFFS BY MOUTH EVERY 4 TO 6 HOURS NEEDED FOR SHORTNESS OF BREATH OR WHEEZING * Symbicort 80-4.5 MCG/ACT inhaler(Started 06/19/2022) INHALE 2 PUFFS BY MOUTH EVERY 12 HOURS * Ascorbic Acid 100 MG Take 1 (one) tablet by mouth Two times a week * vitamin D3 (Cholecalciferol) (25 MCG) 1000 UNIT capsule Take 1 (one) capsule by mouth Two times a week * Coenzyme Q10 10 MG Take 10 mg by mouth Two times a week * hydroCHLOROthiazide (Hydrodiuril) 25 MG tablet(Started 09/21/2021) Take 1 (one) tablet by mouth as needed * losartan (Cozaar) 100 MG tablet(Started 06/25/2022) Take 1 (one) tablet by mouth once daily * meloxicam (Mobic) 15 MG tablet(Started 06/04/2022) Take 1 (one) tablet by mouth once daily * naproxen sodium (Aleve) 220 MG tablet Take 1 (one) tablet by mouth as needed * Vitamin E (Vitamin E/D-Alpha Natural) 268 MG (400 UNIT) CAPS Take 400 Units by mouth Two times a week * GLUCOSAMINE CHONDROITIN COMPLX PO * B Complex Vitamins (VITAMIN B COMPLEX PO) Take by mouth Two times a week * Geronimo-3 1000 MG Take by mouth Two times a week * Multiple Vitamin (MULTIVITAMIN ADULT PO) Take by mouth Two times a week Active Problems Problem Noted Date Diagnosed Date Acute postoperative abdominal pain 11/16/2022 11/16/2022 S/P exploratory laparotomy 11/16/202211/16 Colostomy care 11/17/2017 11/16/2022 HTN (hypertension) 11/11/2017 11/16/2022 History of anal cancer 11/01/2017 3 Other specified counseling 10/07/201711/16 History of rectal cancer 09/29/2016 023 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 (FLUZONE HIGH-DOSE QUADRIVALENT; 65Y+), 0.7 ML (HD-IIV4)(Given 11/27/2018, 11/27/2017, 11/12/2016) * Pneumococcal Pcv13 Conj(Given 12/01/2018) Social History Tobacco Use Types Packs/Day Years [...] Mass Index 30.73 11/16/2022 8:31 AM CDT Procedures * CK BLOOD(Performed 07/06/2022) Performed for Right arm weakness * MOTOR NEUROPATHY PANEL(Performed 07/06/2022) Performed for Right arm weakness Results * MOTOR NEUROPATHY PANEL (07/06/2022 2:51 PM CDT) Motor Neuropathy See Scanned Report 07/30/2022 12:31 PM CDT [facility] Blood BLOOD SPECIMEN / Unknown Lab Venipuncture / Unknown 07/06/2022 2:51 PM CDT 07/06/2022 3:18 PM CDT Catarino Quick MD LAB - CHEMISTRY [facility] [phone] * CK BLOOD (07/06/2022 2:51 PM CDT) Pathologist [facility] CK Total 71 30 - 200 U/L 07/06/2022 3:47 PM CDT [facility] Blood BLOOD SPECIMEN / Unknown Lab Venipuncture / Unknown 07/06/2022 2:51 PM CDT 07/06/2022 3:19 PM CDT Catarino Quick MD LAB - CHEMISTRY [facility] [address] [place] [address]RUST [phone] Care Teams Home Visitor Home Base Head Start Relationship Specialty Start Date End Date Heron Ricci DO PCP - General 07/06/22
--- OUTSIDE RECORDS SUMMARY | 2024-02-28 09:00 | XMS_ITS | Encounter Summary ---
Author Organization [facility] Healthcare Address [address] [place] [address] Care Team Providers Care Counter Stitcher Name Role Phone Heron Ricci DO Primary Care Provider [phone] Talon Steele MD Unavailable [phone] Reason for Visit * Reason Onset Date Comments Test Results 02/15/2024 Encounter Details Date Type Department Care Team (Late st Contact Info) Description 02/15/2024 Telephone [facility] Medical Group Cardiology [address] [place] [address] Brown Mcdaniel MD [address] [id number] Test Results Social History Tobacco Use Types Packs/Day Years Used Date Smoking Tobacco: Former Cigarettes 1 45 1 966 - 2010 Smokeless Tobacco: Never Alcohol Use Standard Drinks/Week Comments Not Currently 5 (1 standard drink = 0.6 oz pur e alcohol) Comments No Sex and Gender Information Value Date Recorded Sex Assigned at Not on file Legal Sex Female 8:43 AM PRODUCT TEST ENGINEER Gender Identity Not on file Sexual Orientation Not on file documented as of this encounter Miscellaneous Notes * Telephone Encounter - Mojgan Woo RN - 02/15/2024 3:41 PM PRODUCT TEST ENGINEER Images from the original note were not included. Brown Mcdaniel MD P [facility] Card Mryvl Clinical Pool Let patient know that CT scan showed at least moderate narrowing in the heart vessels . Additional assessment reported that narrowing is not causing any major compromise in the blood flow to the heart at this time. Patient may continue current medications. However, if patient is having any worsening symptoms of chest pain or shortness breath, then schedule patient for cardiac catheterization Spoke with pt, reviewed message from DK and she verbalized understanding. Pt has a f/u appt in May with DK advised her to call us with any concerns before then. UCT TEST ENGINEER * Telephone Encounter - Mojgan Woo RN - 02/15/2024 11:24 AM PRODUCT TEST ENGINEER Will forward pt question on to DK. FFR results in chart. Please advise. UCT TEST ENGINEER * Telephone Encounter - Felecia Masterson - 02/15/2024 9:53 AM CST Patient calling to go over results of her CT Coronary Fractional Flow [place] performed on 02/08. Requesting a call back. Please advise. Thank you. Contact [phone] UCT TEST ENGINEER documented in this encounter Plan of Treatment Not on file documented as of this encounter Visit Diagnoses Not on filedocumented in this encounter Care Teams Counter Stitcher Relationship Specialty Start Date End Date Heron Ricci DO PCP - General 04/19/16 Talon Steele MD [phone] [place] [address] Surgeon Colon and Rectal Surgery 08/07/21 documented as of this encounter
--- OUTSIDE RECORDS SUMMARY | 2024-02-28 09:00 | XMS_ITS | Encounter Summary ---
Author Organization [facility] Address [address] [place] [address] Care Team Providers Care Senior Mechanical Project Engineer Name Role Phone Heron Ricci DO Primary Care Provider Unavailable Encounter Details Date Type Department Care Team (Late st Contact Info) Description 05/02/2009 Abstract [facility] BREAST SURGERY - [place] [facility] [address] [place] [address] Heron Ricci DO Social History Tobacco Use Types Packs/Day Years Used Date Smoking Tobacco: Former Comments:2004 Alcohol Use Standard Drinks/Week Comments Yes 0 (1 standard drink = 0.6 oz pur e alcohol) moderate Sex and Gender Information Value Date Recorded Sex Assigned at Not on file Gender Identity Not on file Sexual Orientation Not on file documented as of this encounter Plan of Treatment Not on file documented as of this encounter Procedures Procedure Name Priority Date/Time Associated Diagnosis Comments MAMMO DIAGNOSTIC BILATERAL W OR WO CAD Routine 11/21/2008 MAMMO SCREEN BILAT W OR WO CAD Routine 11/14/2008 documented in this encounter Results * MAMMO DIGITAL DIAG BILAT (11/21/2008) Anatomical Region Laterality Modality Breast Bilateral Other Heron Ricci DO MAMMO ORDERABLE S * MAMMO DIGITAL SCREEN BILAT (11/14/2008) Anatomical Region Laterality Modality Breast Bilateral Other Heron Ricci DO MAMMO ORDERABLE S documented in this encounter Visit Diagnoses Not on filedocumented in this encounter Care Teams Senior Mechanical Project Engineer Relationship Specialty Start Date End Date Heron Ricci DO PCP - General 12/04/0802/12 documented as of this encounter
--- OUTSIDE RECORDS SUMMARY | 2024-02-28 09:00 | XMS_ITS | Clinical Summary ---
[facility] [place] Address [address] [place] [address] Phone Care Team Providers Care Ur Coordinator Name Role Phone DavinahareshHeron justice Primary Care Provider Allergies Active Allergy Reactions Criticality Noted Date Comments Codeine Nausea and Vomiting Low 12/04/2008 Medications No known medications Active Problems Problem Noted Date Diagnosed Date HTN (hypertension) Family History Medical History Relation Name Comments Cancer Brother kidney Heart Disease Brother Other Brother diabetes Stroke Brother Heart Disease Father Breast Cancer Mother dx approx 60 y rs Heart Disease Mother Breast Cancer Paternal Aunt Relation Name Status Comments Brother Father Mother Paternal Aunt Social History Tobacco Use Types Packs/Day Years [...] Sign Reading Time Taken Comments Blood Pressure 150/90 12/04/2008 8:38 AM CDT Pulse - - Temperature - - Respiratory Rate - - Oxygen Saturation - - Inhaled Oxygen Concentration - - Weight 80.7 kg (178 lb) 12/04/2008 8:38 AM CDT Height 167.6 cm (5' 6 ) 12/04/2008 8:38 AM CDT Body Mass Index 28.73 12/04/2008 8:38 AM CDT Plan of Treatment Health Maintenance Due Date Last Done Comments DTAP/TDAP/TD VACCINES (1 - Tdap) 1970 COLORECTAL SCREENING 1996 Colorectal Cancer Screening 1996 FIT-DNA Q 3 years 1996 FIT/FOBT Q 1 year 1996 Flex Sig/CT Colonography Q 5 years 1996 ZOSTER VACCINE (1 of 2) 2001 BREAST CANCER SCREENING 11/21/2009 11/21/2008, 11/14 OSTEOPOROSIS SCREENING 2016 PNEUMOCOCCAL VACCINE 65+ YEA RS (1 of 1 - PCV) 2016 INFLUENZA VACCINE (#1) 2023 RSV VACCINE (60+ or ) (1 - 1-dose 75+ series) 2026 Procedures Procedure Name Priority Date/Time Associated Diagnosis Comments MAMMO DIAGNOSTIC BILATERAL W OR WO CAD Routine 11/21/2008 from Last 3 Months or Most Recently Relevant to Health Maintenance Results * MAMMO DIGITAL DIAG BILAT (11/21/2008) Anatomical Region Laterality Modality Breast Bilateral Other Heron Ricci DO MAMMO ORDERABLE S from Last 3 Months or Most Recently Relevant to Health Maintenance Care Teams Ur Coordinator Relationship Specialty Start Date End Date Heron Ricci DO PCP - General 02/13/15
--- OUTSIDE RECORDS SUMMARY | 2024-02-28 09:00 | XMS_ITS | Encounter Summary ---
Author Organization [facility] Healthcare Address [address] [place] [address] Care Team Providers Care Marshmallow Maker Name Role Phone Heron Ricci DO Primary Care Provider [phone] Talon Steele MD Unavailable [phone] Reason for Referral * Procedure (Routine) - Closed Specialty Diagnoses / Procedures [facility] Referred To Contact Diagnoses FELTON (dyspnea on exertion) History of tobacco abuse Procedures Pulmonary Function Test -External Brown Mcdaniel MD [address] [address] Phone: tel: fax: External Order Referral ID Status Reason Start Date Expiration Date Visits Re quested Visits Authorized [id number] Closed 01/11/2024 02/09/2025 1 1 SSESSOR * MRI/CAT/PET Scan (Routine) - Closed Specialty Diagnoses / Procedures Referred By Emilia berkowitz Referred To Contact Radiology Diagnoses LV dysfunction Abnormal nuclear stress test FELTON (dyspnea on exertion) Procedures CTA Heart and Coronary Arteries W Morphology when Performed Brown Mcdaniel MD [address] [facility] [address] [place] [address] Phone: tel: fax: [address] [phone] Referral ID Status Reason Start Date Expiration Date Visits Re quested Visits Authorized [id number] Closed 01/11/2024 07/09/2024 1 1 SSESSOR Reason for Visit * Reason Comments Follow-up 7 wk Encounter Details Date Type Department Care Team (Late st Contact Info) Description 01/11/2024 1:30 PM REPOSSESSOR Office Visit [facility] [address] [place] [address] Brown Mcdaniel MD [address] [place] [address] LV dysfunction (Primary Dx); Abnormal nuclear stress test; FELTON (dyspnea on exertion); Primary hypertension; History of anal cancer; History of tobacco abuse Social History Tobacco Use Types Packs/Day Years Used Date Smoking Tobacco: Former Cigarettes 1 45 1 966 - 2010 Smokeless Tobacco: Never Tobacco Cessation:Counseling Given: Not Answered Alcohol Use Standard Drinks/Week Comments Not Currently 5 (1 standard drink = 0.6 oz pur e alcohol) Comments No Sex and Gender Information Value Date Recorded Sex Assigned at Not on file Legal Sex Female 8:43 AM REPOSSESSOR Gender Identity Not on file Sexual Orientation Not on file documented as of this encounter Last Filed Vital Signs Vital Sign Reading Time Taken Comments Blood Pressure 124/66 01/11/2024 1:22 PM REPOSSESSOR Pulse 57 01/11/2024 1:22 PM REPOSSESSOR Temperature - - Respiratory Rate - - Oxygen Saturation 93% 01/11/2024 1:22 PM REPOSSESSOR Inhaled Oxygen Concentration - - Weight 73.5 kg (162 lb) 01/11/2024 1:22 PM REPOSSESSOR Height 157.5 cm (5' 2 ) 01/11/2024 1:22 PM REPOSSESSOR Body Mass Index 29.63 01/11/2024 1:22 PM REPOSSESSOR documented in this encounter Ordered Prescriptions Prescription Sig Dispense Quantity Refills Last Filled Start Date End Date sacubitriL-valsart an (ENTRESTO) 97-103 mg tabletIndications: chronic heart failure Take 1 tablet by mouth 2 (two) times a day 60 tablet 11 01/11/2024 spironolactone (ALDACTONE) 25 mg tablet Take 1 tablet (25 mg total) by mouth daily 30 tablet 11 01/11/2024 01/10/2025 losartan (COZAAR) 100 mg tablet Take 1 tablet (100 mg total) by mouth daily 30 tablet 01/11/2024 01/11/2024 documented in this encounter Progress Notes * Brown Mcdaniel MD - 01/11/2024 1:30 PM CST [facility] 01/11/2024 CHIEF COMPLAINT Chief Complaint Patient presents with Follow-up 7 wk HPI Roxana Andersen is a 73 y.o. female with CHF with mildly reduced ejection fraction, hypertension, COPD/emphysema, history of anal cancer, status post surgery, RT/chemo; history of heavy tobacco abuse 11/23/2023 initial evaluation-patient has been referred for cardiovascular evaluation management. She is accompanied by her . Patient reports dyspnea on mild exertion, able to walk about 1 block before she gets short of breath. She attributes her dyspnea to her underlying COPD/emphysema given her history of heavy tobacco abuse. She denies chest pain. No palpitation, dizziness or syncope. Patient has chronic lower extremity swelling. Denies primary history of clinical MT or any known arrhythmias. Echo from 10/27/2023 performed at [facility] reportedly showed mild LV enlargement, LVEF 40-45%, grade 1 diastolic dysfunction, no significant valvular abnormality. 01/11/2024-patient is here for the follow-up visit accompanied by her . She has dyspnea on exertion, able to walk about half a block before she gets short of breath and tired. No chest pain. No palpitation, dizziness or syncope. 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 she has a past surgical history that includes Breast biopsy; Breast surgery; Intracranial aneurysm repair; Examination under anesthesia (12/23/2016); Rectal biopsy; Mastopexy; Exploratory laparotomy;Tubal ligation; Examination under anesthesia (08/26/2017); and Abdominoperineal proctocolectomy (10/17/2017). she Allergies Allergen Reactions Sulfa (Sulfonamide Antibiotics) Anaphylaxis Codeine Nausea only and Nausea And Vomiting Reaction: NAUSEA, Current Outpatient Medications Medication Sig Dispense Refill ascorbic acid (VITAMIN C) 100 mg tablet Take 1 tablet (100 mg total) by mouth 2 (two) times a week aspirin 81 mg enteric coated tablet Take 1 tablet (81 mg total) by mouth daily 30 tablet 11 calcium carbonate (CALCIUM 500 ORAL) Take by mouth 2 (two) times a week cholecalciferol (VITAMIN D-3) 1,000 unit capsule Take 1 capsule (1,000 Units total) by mouth 2 (two) times a week fluticasone furoate-vilanteroL (BREO ELLIPTA) 100-25 mcg/dose diskus inhaler Inhale 1 puff daily Rinse mouth with water after use. Do not swallow. urqb-wyo-eby G-QM-euwe-diet 29 125 mg-37.5 mg- 500 mcg-1.25mg capsule Take by mouth 2 (two) times aday meloxicam (MOBIC) 15 mg tablet metoprolol XL (TOPROL-XL) 25 mg extended release tablet Take 1 tablet (25 mg total) by mouth daily 30 tablet 11 multivitamin capsule Take 1 capsule by mouth 2 (two) times a week naproxen (ALEVE) 220 mg tablet Take 1 tablet (220 mg total) by mouth every 12 (twelve) hours as needed omega 0-yki-ezl-fish oil 300-1,000 mg capsule Take 1 capsule by mouth 2 (two) times a week oxyBUTYnin XL (DITROPAN-XL) 10 mg 24 hr tablet Take 1 tablet (10 mg total) by mouth daily rosuvastatin (CRESTOR) 20 mg tablet Take 1 tablet (20 mg total) by mouth daily 30 tablet 11 VENTOLIN HFA 90 mcg/actuation inhaler Inhale 2 puffs as needed vitamin B complex (B COMPLEX 1 ORAL) Take by mouth 2 (two) times a week vitamin E 400 unit capsule Take 1 capsule (400 Units total) by mouth 2 (two) times a week nystatin powder Apply to affected area with pouch changes (Patient not taking: Reported on 01/11/2024) 30 g 1 sacubitriL-valsartan (ENTRESTO) 97-103 mg tablet Take 1 tablet by mouth 2 (two) times a day 60 tablet 11 spironolactone (ALDACTONE) 25 mg tablet Take 1 tablet (25 mg total) by mouth daily 30 tablet 11 No current facility-administered medications for this visit. she family history includes Bladder Cancer in her brother; Breast cancer in her mother; Cancer in an other family member; Colon polyps in her mother; Diabetes in an other family member; Heart attack in her brother and father; Heart disease in her father. she reports that she quit smoking about 13 years ago. Her smoking use included cigarettes. She started smoking about 58 years ago. She has a 45 pack-year smoking history. She has never used smokelesstobacco. She reports current drug use. Frequency: 6.00 times per week. Drug: Alcohol. No alcohol history on file. Ex-smoker, about 50 pack year history of smoking; drinks alcohol couple of times a week, no illicitdrugs. 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 Lives with her REVIEW OF SYSTEMS General ROS: Positive for fatigue Psychological ROS: negative for - anxiety, depression Ophthalmic ROS: negative for - loss of vision ENT ROS: negative for - sore throat, epistaxis, headaches, nasal congestion Allergy and Immunology ROS: negative for - hives, postnasal drip Hematological and Lymphatic ROS: negative for - overt bleeding problems, bruising Respiratory ROS: Positive for dyspnea Cardiovascular ROS: negative for - chest pain, positive for dyspnea on exertion Gastrointestinal ROS: negative for - abdominal pain, nausea/vomiting, hematemesis, blood in the stool Endocrine ROS: negative for - hot flashes, polydipsia/polyuria Musculoskeletal ROS: negative for - joint pain, muscle pain Neurological ROS: negative for - gait disturbance, weakness Dermatological ROS: negative for pruritus, rash LABS AND OTHER DIAGNOSTIC TESTS REVIEWED Lab Results Component Value Date WBC 9.3 10/20/2017 HGB 12.1 10/20/2017 HCT 36.4 10/20/2017 MCV 102.5 (H) 10/20/2017 No lab exists for component: LABALBU Lab Results Component Value Date WBC 9.3 10/20/2017 HGB 12.1 10/20/2017 HCT 36.4 10/20/2017 MCV 102.5 (H) 10/20/2017 No results found for: CHOL No results found for: HDL No results found for: LDL ] No results found for: TRIG Lab Results Component Value Date POCCHOL 225 11/23/2023 POCHDL 100 11/23/2023 POCTRIG 52 11/23/2023 POCLDL 114 11/23/2023 POCNONHDL N/A 11/23/2023 POCCHLPL 225 11/23/2023 Echo Normal LV size, thickness, with low normal function. Normal RV size and systolic function. Paradoxic septal motion. Normal atria. Mild MR, TR. Estimate PASP 25 mmHg (assuming RA pressure 5 mmHg). Normal IVC, aorta 04/23/2016; [facility] Echo-mild LV enlargement, LVEF 40-45%, grade 1 diastolic dysfunction, G ALS- 12.7%, moderate left atrial enlargement, normal RV size and systolic function, no significant valvular abnormality, no pericardial effusion. 10/27/2023- [facility] DO Lipids-total cholesterol 225, HDL more than 100, triglycerides 52, LDL 114, glucose 109. 11/23/2023 EKG-sinus rhythm, PVC, right axis deviation. 11/23/2023 MPI-LVEF 41%, akinetic apical segment. Fixed defect in the apex. 11/23/2023; Dr. Smiley PHYSICAL EXAM Vitals BP 124/66 (BP Location: Left arm, Patient Position: Sitting) Pulse 57 Ht 157.5 cm (5' 2 ) Wt 73.5 kg (162 lb) SpO2 93% BMI 29.63 kg/m?? General appearance - alert, no distress, oriented to time, place, person Mental status - affect appropriate to mood Eyes - extraocular eye movements intact, no pallor Ears - external ears appear normal, hearing grossly normal Nose - normal and patent, no discharge Mouth - mucous membranes moist, tongue normal Neck - supple, no JVD Chest - diminished breath sounds globally Heart - normal rate, regular rhythm, normal S1, S2, no audible murmurs Abdomen - soft, colostomy present Neurological - alert, oriented, normal speech, no gross motor deficits Musculoskeletal - no major deformity, no amputations Extremities - mild pedal edema, no clubbing or cyanosis Skin - no rashes (on the exposed areas), no cyanosis ASSESSMENT Diagnoses and all orders for this visit: LV dysfunction (Primary) - CTA Heart and Coronary Arteries W Morphology when Performed; Future - Comprehensive metabolic panel; Future - CBC with auto differential; Future - Pro B-type natriuretic peptide; Future Abnormal nuclear stress test - CTA Heart and Coronary Arteries W Morphology when Performed; Future FELTON (dyspnea on exertion) - CTA Heart and Coronary Arteries W Morphology when Performed; Future - Pulmonary Function Test -External; Future Primary hypertension History of anal cancer History of tobacco abuse - Pulmonary Function Test -External; Future Other orders - spironolactone (ALDACTONE) 25 mg tablet; Take 1 tablet (25 mg total) by mouth daily - sacubitriL-valsartan (ENTRESTO) 97-103 mg tablet; Take 1 tablet by mouth 2 (two) times a day PLAN/RECOMMENDATIONS 73 y.o. with CHF with mildly reduced ejection fraction, hypertension, COPD/emphysema, history of anal cancer status post surgery, RT/chemo per patient; history of heavy tobacco abuse. -patient has mild LV systolic dysfunction based on previous echocardiogram. She currently has dyspnea on mild exertion, which she attributes to underlying COPD/emphysema. No prior history of clinicalMI, angina. Recent EKG showed sinus rhythm, PVC, right axis deviation. MPI from 12/08/2023 reportedly showed LVEF 41% with segmental wall motion abnormality; fixed defectin apical anterior and apex. After discussion with the patient and her about additional ischemic workup, they would like to proceed with coronary CT angiogram (with CT FFR as needed) to checkfor any significant obstructive CAD. Need for invasive ischemic workup to be determined based on clinical course and coronary CT angiographic results. Continue metoprolol succinate; sacubitril/valsartan. Patient would like to wait on SGLT2 inhibitor for now. Add spironolactone 25 mg p.o. daily. Continue low-dose aspirin, and statin. Repeat lipid panel on follow-up visit. Check CBC, CMP, NT proBNP. -Patient has dyspnea on exertion and history of tobacco abuse. Check PFTs. Information about the local pulmonologists given to the patient. -blood pressure is fairly controlled. Antihypertensives will include sacubitril/valsartan, metoprolol succinate. Change HCTZ to spironolactone. Low- salt diet. Monitor blood pressure. -history of heavy tobacco abuse. Advised to continue to abstain from smoking. -heart healthy/low-salt diet, aerobic activity as tolerated. -follow up in about 12 weeks or sooner if necessary after above testing is complete. Brown Mcdaniel MD 01/11/24 Voice recognition software was used to complete this document, therefore, profile saw operator variances may occur. SSESSOR documented in this encounter Plan of Treatment Scheduled Orders Name Type Priority Associated Diagnoses Orde r Schedule Pulmonary Function Test -External PFT Routine FELTON (dyspnea on exertion) History of tobacco abuse 1 Occurrences starting 01/11/2024 until 01/10/2025 Comprehensive metabolic panel Lab Routine LV dysfunction Expected: 01/11/2024, Expires: 01/10/2025 CBC with auto differential Lab Routine LV dysfunction Expected: 01/11/2024, Expires: 01/10/2025 Pro B-type natriuretic peptide Lab Routine LV dysfunction Expected: 01/11/2024, Expires: 01/10/2025 documented as of this encounter Results * CTA Heart and Coronary Arteries W Morphology when Performed (02/08/2024 12:45 PM REPOSSESSOR) Anatomical Region Laterality Modality Chest N/A Computed Tomogra phy 02/08/2024 1:08 PM REPOSSESSOR Impressions 02/08/2024 1:08 PM REPOSSESSOR Severe coronary calcification with a calcium score of 701. There is at least moderate disease in the right coronary artery but there may be severe coronary artery disease within the left anterior descending coronary artery and circumflex. Would recommend consideration to either CT FFR or invasive coronary angiography for further evaluation the coronary arteries. Electronically signed by: Justin Penny M.D. Narrative 02/08/2024 1:08 PM REPOSSESSOR Examination: CT coronary angiogram with and without intravenous contrast HISTORY: Chest pain and left ventricular dysfunction TECHNIQUE: Standard pre and postcontrast CT angiogram was performed with ECG gating. 0.8 mg of nitroglycerin sublingually. A total of 93 mL of Optiray 350 intravenous contrast was administered. Images were sent to three-dimensional workstation for further evaluation. FINDINGS: Comparison is made to prior CT of the chest from 05/04/2022. Bilateral breast implants are seen. Radiation changes are seen anteriorly within the lungs. Mild basilar atelectasis is noted. Mild colonic interposition is seen beneath the right hemidiaphragm. Mild elevation the right hemidiaphragm is again noted as well. The heart size is within normal limits. The total calcium score is 701 which places the patient above the 90th percentile for age corrected risk factors. The heart size is at upper limit of normal and unchanged. The right coronary artery is normal in origin but somewhat circuitous with moderate stenosis of the mid right coronary artery with approximately 50% reduction in the lumen. Patient is right dominant. The left main coronary artery is without atherosclerosis. Left circumflex coronary artery has severe calcification and has at least moderate stenosis. The amount of blooming artifact in the proximal circumflex coronary artery precludes further evaluation with anatomic CT. The left anterior descending coronary artery has significant amount of calcification within the proximal artery. Within the mid artery significant blooming is seen within the left mid coronary artery. The distal left anterior descending coronary artery is patent. Bone windows do not demonstrate any osseous lesion. Procedure Note Justin Penny MD - 02/08/2024 Examination: CT coronary angiogram with and without intravenous contrast HISTORY: Chest pain and left ventricular dysfunction TECHNIQUE: Standard pre and postcontrast CT angiogram was performed with ECG gating. 0.8 mg of nitroglycerin sublingually. A total of 93 mL of Optiray 350 intravenous contrast was administered. Images were sent to three-dimensional workstation for further evaluation. FINDINGS: Comparison is made to prior CT of the chest from 05/04/2022. Bilateral breast implants are seen. Radiation changes are seen anteriorly within the lungs. Mild basilar atelectasis is noted. Mild colonic interposition is seen beneath the right hemidiaphragm. Mild elevation the right hemidiaphragm is again noted as well. The heart size is within normal limits. The total calcium score is 701 which places the patient above the 90th percentile for age corrected risk factors. The heart size is at upper limit of normal and unchanged. The right coronary artery is normal in origin but somewhat circuitous with moderate stenosis of the mid right coronary artery with approximately 50% reduction in the lumen. Patient is right dominant. The left main coronary artery is without atherosclerosis. Left circumflex coronary artery has severe calcification and has at least moderate stenosis. The amount of blooming artifact in the proximal circumflex coronary artery precludes further evaluation with anatomic CT. The left anterior descending coronary artery has significant amount of calcification within the proximal artery. Within the mid artery significant blooming is seen within the left mid coronary artery. The distal left anterior descending coronary artery is patent. Bone windows do not demonstrate any osseous lesion. IMPRESSION: Severe coronary calcification with a calcium score of 701. There is at least moderate disease in the right coronary artery but there may be severe coronary artery disease within the left anterior descending coronary artery and circumflex. Would recommend consideration to either CT FFR or invasive coronary angiography for further evaluation the coronary arteries. Electronically signed by: Justin Penny M.D. Brown Mcdaniel MD IM CT PROCEDURES Final Result documented in this encounter Visit Diagnoses Diagnosis LV dysfunction- Primary Left heart failure Abnormal nuclear stress test FELTON (dyspnea on exertion) Other dyspnea and respiratory abnormality Primary hypertension Unspecified essential hypertension History of anal cancer History of tobacco abuse LV dysfunction Left heart failure Abnormal nuclear stress test FELTON (dyspnea on exertion) Other dyspnea and respiratory abnormality documented in this encounter Discontinued Medications Medication Sig Discontinue Reason Start Date End Da te acetaminophen (TYLENOL) 500 mg tabletIndications:Pain Take 1 tablet (500 mg total) by mouth every 6 (six) hours as needed Therapy completed 01/11/2024 budesonide-formoteroL (SYMBICORT) 80-4.5 mcg/actuation inhalerIndications[facility] Prevention with COPD Inhale 2 puffs 2 (two) times a day as needed Therapy completed 01/11/2024 coenzyme Q10 10 mg capsule Take 1 capsule (10 mg total) by mouth 2 (two) times a week Therapy completed 01/11/2024 sacubitriL-valsartan (ENTRESTO) 97-103 mg tabletIndications:chroni c heart failure Take 1 tablet by mouth 2 (two) times a day Alternate therapy 11/23/2023 01/11/2024 hydroCHLOROthiazide (HYDRODIURIL) 25 mg tabletIndications:hypert ension Take 1 tablet (25 mg total) by mouth as needed Alternate therapy 07/27/2017 01/11/2024 losartan (COZAAR) 100 mg tablet Take 1 tablet (100 mg total) by mouth daily Alternate therapy 01/11/2024 01/11/2024 documented as of this encounter Care Teams Marshmallow Maker Relationship Specialty Start Date End Date Heron Ricci DO PCP - General 04/19/16 Talon Steele MD [address] [facility] [id number] [place] [address] Surgeon Colon and Rectal Surgery 08/07/21 documented as of this encounter
--- OUTSIDE RECORDS SUMMARY | 2024-02-28 09:00 | XMS_ITS ---
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 Past Plans No past plan information found. Radiation Treatments * No radiation treatments are documented for this patient in [facility]. Treatments may have been administered in another system. Lifetime Dose Tracking * Chemical Lifetime Dose Automatic Entry Manual Entr y DLP 4,876 mGycm 4,876 mGycm 0 mGycm Resolved Problems Problem Noted Date Diagnosed Date Resolved Date Anal cancer (CMS/HCC) 08/16/20172018 Overview (08/16/2017): Added automatically from request for surgery [id number]
--- OUTSIDE RECORDS SUMMARY | 2024-02-28 09:00 | XMS_ITS | Encounter Summary ---
Author Organization [facility] Address [address] [place] [address] Care Team Providers Care Utilities Equipment Repairer Name Role Phone Heron Ricci DO Primary Care Provider [phone] Talon [place] MD Unavailable [phone] Encounter Details Date Type Department Care Team (Late st Contact Info) Description 01/13/2024 Telephone [facility] Cardiology [address] [place] [address] Brown Mcdaniel MD [address] [place] [address] Social History Tobacco Use Types Packs/Day Years Used Date Smoking Tobacco: Former Cigarettes 1 45 1 966 - 2010 Smokeless Tobacco: Never Alcohol Use Standard Drinks/Week Comments Not Currently 5 (1 standard drink = 0.6 oz pur e alcohol) Comments No Sex and Gender Information Value Date Recorded Sex Assigned at Not on file Legal Sex Female 8:43 AM BAG ADJUSTER Gender Identity Not on file Sexual Orientation Not on file documented as of this encounter Miscellaneous Notes * Telephone Encounter - Mojgan Woo RN - 01/13/2024 9:26 AM BAG ADJUSTER Pt called back she is going to the [facility] to have her labs done today. ADJUSTER * Telephone Encounter - Felecia Masterson - 01/13/2024 9:18 AM CST Patient returning call. Explained message below. Patient confirmed understanding. Requesting labs be sent to [facility] [place]. Please advise. Thank you. Contact [phone] ADJUSTER * Telephone Encounter - Mojgan Woo RN - 01/13/2024 9:10 AM BAG ADJUSTER Message from TOMASA: Repeat BMP. If potassium levels are still low, then will replace. She is on Entresto and spironolactone, therefore hesitant to supplement potassium right away before repeating the labs. Called and LM on VM reviewing message from TOMASA and requested callback. Told pt I would send lab orders to and would prefer her to go and have redrawn today if possible. Requested callback to confirm she received my message. ADJUSTER documented in this encounter Plan of Treatment Scheduled Orders Name Type Priority Associated Diagnoses Orde r Schedule Basic metabolic panel Lab Routine FELTON (dyspnea on exertion) Primary hypertension Expected: 01/16/2024, Expires: 01/12/2025 documented as of this encounter Visit Diagnoses Diagnosis FELTON (dyspnea on exertion)- Primary Other dyspnea and respiratory abnormality Primary hypertension Unspecified essential hypertension documented in this encounter Care Teams Utilities Equipment Repairer Relationship Specialty Start Date End Date Heron Ricci DO PCP - General 04/19/16 Talon [place] MD [id number] [place] [address] Surgeon Colon and Rectal Surgery 08/07/21 documented as of this encounter
--- OUTSIDE RECORDS SUMMARY | 2024-02-28 09:00 | XMS_ITS | Encounter Summary ---
Author Organization [facility] Address [address] [facility] [address] [place] [address] Phone Care Team Providers Care Facilities Maintenance Engineer Name Role Phone Heron Ricci DO Primary Care Provider [phone] Talon [place] MD Unavailable Reason for Visit * Reason Comments Anal Cancer Encounter Details Date Type Department Care Team (Late st Contact Info) Description 11/01/2023 9:15 AM CDT Office Visit [facility] Surgery [address] [place] [address] Talon [place] MD [address] [facility] [id number] [place], [place] [id number] History of anal cancer (Primary Dx); Colostomy care ([facility]/HCC) (HCC) Social History Tobacco Use Types Packs/Day Years Used Date Smoking Tobacco: Former Cigarettes 1 45 1 966 - 2010 Smokeless Tobacco: Never Alcohol Use Standard Drinks/Week Comments Not Currently 5 (1 standard drink = 0.6 oz pur e alcohol) Comments No Sex and Gender Information Value Date Recorded Sex Assigned at Not on file Legal Sex Female 8:43 AM BORDER POLICE Gender Identity Not on file Sexual Orientation Not on file documented as of this encounter Last Filed Vital Signs Vital Sign Reading Time Taken Comments Blood Pressure 145/70 11/01/2023 9:06 AM CDT Pulse 73 11/01/2023 9:06 AM CDT Temperature 36.4 ??C (97.6 ??F) 11/01/2023 9:06 AM CD T Respiratory Rate - - Oxygen Saturation 91% 11/01/2023 9:06 AM CDT Inhaled Oxygen Concentration - - Weight 72.8 kg (160 lb 6.4 oz) 11/01/2023 9:06 A M CDT Height 157.5 cm (5' 2 ) 11/01/2023 9:06 AM CDT Body Mass Index 29.34 11/01/2023 9:06 AM CDT documented in this encounter Progress Notes * Talon [place] MD - 11/01/2023 9:15 AM CDT Colorectal Surgery Clinic Visit Chief Complaint: Roxana Andersen is a 73 y.o. female with chief complaint of Anal Cancer HPI: 73-year-old woman with history of anal cancer treated with abdominal peroneal resection and colostomy. She is now 6 years from surgery. Overall she is doing quite well. She is interested in inquiring about a continent ileostomy. She does have some difficulty with pouching but is overall able to manage this quite well. She has no other complaints at this time. Past Medical History: Diagnosis Date Anal cancer (CMS/HCC) (HCC) tx. 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 Abdominoperineal resection with posterior vaginectomy. 2. A rectus abdominis flap reconstructionof pelvic floor. BREAST BIOPSY Biopsy Breast Open - (Added by TW Conv) BREAST SURGERY Breast Surgery Enlargement Procedure Bilateral - (Added by TW Conv) EXAMINATION UNDER ANESTHESIA 12/23/2016 EUA with biopsy EXAMINATION UNDER ANESTHESIA 08/26/2017 with anal biopsy EXPLORATORY LAPAROTOMY INTRACRANIAL ANEURYSM REPAIR coiling 2006 MASTOPEXY RECTAL BIOPSY TUBAL LIGATION HOME MEDICATIONS : acetaminophen (TYLENOL) 500 mg tablet amLODIPine (NORVASC) 5 mg tablet ascorbic acid (VITAMIN C) 100 mg tablet calcium carbonate (CALCIUM 500 ORAL) cholecalciferol (VITAMIN D-3) 1,000 unit capsule coenzyme Q10 10 mg capsule spzq-fpj-nhx T-ZW-arns-diet 29 125 mg-37.5 mg- 500 mcg-1.25mg capsule hydroCHLOROthiazide (HYDRODIURIL) 25 mg tablet losartan (COZAAR) 100 mg tablet meloxicam (MOBIC) 15 mg tablet multivitamin capsule naproxen (ALEVE) 220 mg tablet omega 1-osh-mlu-fish oil 300-1,000 mg capsule oxyBUTYnin XL (DITROPAN-XL) 10 mg 24 hr tablet VENTOLIN HFA 90 mcg/actuation inhaler vitamin B complex (B COMPLEX 1 ORAL) vitamin E 400 unit capsule aspirin 81 mg chewable tablet budesonide-formoteroL (SYMBICORT) 80-4.5 mcg/actuation inhaler nystatin powder Allergies Allergen Reactions Sulfa (Sulfonamide Antibiotics) Anaphylaxis Codeine Nausea only and Nausea And Vomiting Reaction: NAUSEA, Social History Tobacco Use Smoking status: Former Current packs/day: 0.00 Average packs/day: 1 pack/day for 45.0 years (45.0 ttl pk-yrs) Types: Cigarettes Start date: 1965 Quit date: 2010 Years since quittin.6 Smokeless tobacco: Never Substance and Sexual Activity Drug use: No Sexual activity: None Alcohol Use: Not on file Family History Problem Relation Age of Onset Heart disease Father Heart Disease - (Added by TW Conv) Diabetes Other Diabetes Mellitus - (Added by TW Conv) Cancer Other Cancer - (Added by TW Conv) Breast cancer Mother Breast Cancer - (Added by TW Conv) Colon polyps Mother Bladder Cancer Brother Family history of bladder cancer - (Added by TW Conv) Review of Systems: All systems are negative except as per HPI and scanned media. Vitals: Vitals BP 145/70 Pulse 73 Temp 36.4 ??C (97.6 ??F) Ht 157.5 cm (5' 2 ) Wt 72.8 kg (160 lb 6.4 oz) SpO2 91% BMI 29.34 kg/m?? Physical exam: GENERAL EXAM Appearance - well developed, well nourished Orientation - alert and oriented x 3 Eyes - anicteric Ears, mouth and nose: Normal Neurologic: Non-focal motor function Pulmonary: Non-labored breathing, no audible wheezing Integumentary: No rashes Musculoskeletal: No gross bony deformities Abdomen -- Soft nontender, nondistended, no masses. Midline incision is well healed with no hernia.Left lower quadrant colostomy is pink viable and function with a reducible hernia Assessment: Roxana Andersen is a 73 y.o. female with history of anal cancer and colostomy Plan: With regards to the Kock pouch, I would not recommended as this would require a completion colectomy with conversion to an ileostomy. Also this procedure has a high complication rate. She understandsall this all of her questions were answered and she will stay with her colostomy. Will go ahead and renew her stoma supplies at this point in time. Return to clinic in 1 year Talon [place] MD 11/01/2023 9:54 AM documented in this encounter Plan of Treatment Not on file documented as of this encounter Visit Diagnoses Diagnosis History of anal cancer- Primary Colostomy care (HCC) Attention to colostomy documented in this encounter Historical Medications * This list may reflect changes made after this encounter. oxyBUTYnin XL (DITROPAN-XL) 10 mg 24 hr tablet Take 1 tablet (10 mg total) by mouth daily amLODIPine (NORVASC) 5 mg tablet Take 1 tablet (5 mg total) by mouth daily 11/23/2023 added in this encounter Care Teams Facilities Maintenance Engineer Relationship Specialty Start Date End Date Heron Ricci DO PCP - General 04/19/16 Talon [place] MD [id number] [place] [address] Surgeon Colon and Rectal Surgery 08/07/21 documented as of this encounter
--- OUTSIDE RECORDS SUMMARY | 2024-02-28 09:00 | XMS_ITS | Encounter Summary ---
Author Organization [facility] Healthcare Address [address] [place] [address] Care Team Providers Care Java Performance Engineer Name Role Phone Heron Ricci DO Primary Care Provider [phone] Talon Steele MD Unavailable [phone] Reason for Referral * Diagnostic Imaging (Routine) - Closed Specialty Diagnoses / Procedures [facility] Referred To Contact Diagnoses LV dysfunction FELTON (dyspnea on exertion) Procedures NM MPI SPECT (Rest and/or Stress) Multiple Studies GA TC99M SESTAMIBI GA REGADENOSON INJECTION GA THERAPEUTIC PROPHYLACTIC/DX INJECTION SUBQ/IM Brown Kincaid MD [address] [address] Phone: tel: fax: [facility] Referral ID Status Reason Start Date Expiration Date Visits Re quested Visits Authorized [id number] Closed 11/23/2023 12/22/2024 1 1 Reason for Visit * Reason Comments New Patient Had echo on 10/27/23 LBBB Cardiomegaly * Consultation (Routine) - Closed Specialty Diagnoses / Procedures [facility] Referred To Contact Cardiology Diagnoses LBBB (left bundle branch block) Abnormal findings on diagnostic imaging of heart and coronary circulation Cardiomegaly Heron Ricci DO Phone: tel: fax: [facility] Cardiology [address] [place] [address] Phone: tel: fax: Referral ID Status Reason Start Date Expiration Date V isits Requested Visits Authorized [id number] Closed Specialty Services Required 11/01/2023 11/30/2024 1 1 Encounter Details Date Type Department Care Team (Late st Contact Info) Description 11/23/2023 11:00 AM CDT Office Visit [facility] Cardiology [address] [place] [address] Brown Kincaid MD [address] [address] LV dysfunction (Primary Dx); FELTON (dyspnea on exertion); Primary hypertension; History [...] on file 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 Gender Identity Not on file Sexual Orientation Not on file documented as of this encounter Last Filed Vital Signs Vital Sign Reading Time Taken Comments Blood Pressure 120/68 11/23/2023 11:27 AM CDT Pulse 71 11/23/2023 11:27 AM CDT Temperature - - Respiratory Rate - - Oxygen Saturation 98% 11/23/2023 11: 27 AM CDT Inhaled Oxygen Concentration - - Weight 73.8 kg (162 lb 12.8 oz) 024 11:27 AM CDT Height 157.5 cm (5' 2 ) 11/23/2023 11:2 7 AM CDT Body Mass Index 29.78 11/23/2023 11:27 AM CDT documented in this encounter Ordered Prescriptions Prescription Sig Dispense Quantity Refills Last Filled Start Date End Date metoprolol XL (TOPROL-XL) 25 mg extended release tablet Take 1 tablet (25 mg total) by mouth daily 30 tablet 11 11/23/2023 11/22/2024 rosuvastatin (CRESTOR) 20 mg tablet Take 1 tablet (20 mg total) by mouth daily 30 tablet 11/23/2023 11/22/2024 aspirin 81 mg enteric coated tablet Take 1 tablet (81 mg total) by mouth daily 30 tablet 11/23/2023 11/22/2024 sacubitriL-valsart an (ENTRESTO) 97-103 mg tabletIndications: chronic heart failure Take 1 tablet by mouth 2 (two) times a day 60 tablet 11/23/2023 01/11/2024 documented in this encounter Progress Notes * Brown Kincadi MD - 11/23/2023 11:00 AM CDT [facility] CARDIOLOGY 11/23/2023 CHIEF COMPLAINT Chief Complaint Patient presents with New Patient Had echo on 10/27/23 LBBB Cardiomegaly HPI Roxana Andersen is a 73 y.o. [...] extremity swelling. Denies primary history of clinical DE or any known arrhythmias. Echo from 10/27/2023 performed at [facility] reportedly showed mild LV enlargement, LVEF 40-45%, grade 1 diastolic dysfunction, no significant valvular abnormality. MEDICAL HISTORY she has a past medical [...] Current Outpatient Medications Medication Sig Dispense Refill acetaminophen (TYLENOL) 500 mg tablet Take 1 tablet (500 mg total) by mouth every 6 (six) hours as needed ascorbic acid (VITAMIN C) 100 mg tablet Take 1 tablet (100 mg total) by mouth 2 (two) times a week calcium carbonate (CALCIUM 500 ORAL) Take by mouth 2 (two) times a week cholecalciferol (VITAMIN D-3) 1,000 unit capsule Take 1 capsule (1,000 Units total) by mouth 2 (two) times a week coenzyme Q10 10 mg capsule Take 1 capsule (10 mg total) by mouth 2 (two) times a week fluticasone furoate-vilanteroL (BREO ELLIPTA) 100-25 mcg/dose diskus inhaler Inhale 1 puff daily Rinse mouth with water after use. Do not swallow. uoxm-twv-syc G-ZW-qhsf-diet 29 125 mg-37.5 mg- 500 mcg-1.25mg capsule Take by mouth 2 (two) times aday hydroCHLOROthiazide (HYDRODIURIL) 25 mg tablet Take 1 tablet (25 mg total) by mouth as needed meloxicam (MOBIC) 15 mg tablet multivitamin capsule Take 1 capsule by mouth 2 (two) times a week naproxen (ALEVE) 220 mg tablet Take 1 tablet (220 mg total) by mouth every 12 (twelve) hours as needed omega 3-opx-yfl-fish oil 300-1,000 mg capsule Take 1 capsule by mouth 2 (two) times a week oxyBUTYnin XL (DITROPAN-XL) 10 mg 24 hr tablet Take 1 tablet (10 mg total) by mouth daily VENTOLIN HFA 90 mcg/actuation inhaler Inhale 2 puffs as needed vitamin B complex (B COMPLEX 1 ORAL) Take by mouth 2 (two) times a week vitamin E 400 unit capsule Take 1 capsule (400 Units total) by mouth 2 (two) times a week aspirin 81 mg enteric coated tablet Take 1 tablet (81 mg total) by mouth daily 30 tablet 11 budesonide-formoteroL (SYMBICORT) 80-4.5 mcg/actuation inhaler Inhale 2 puffs 2 (two) times a day as needed (Patient not taking: Reported on 11/01/2023) metoprolol XL (TOPROL-XL) 25 mg extended release tablet Take 1 tablet (25 mg total) by mouth daily 30 tablet 11 nystatin powder Apply to affected area with pouch changes (Patient not taking: Reported on 11/01/2023) 30 g 1 rosuvastatin (CRESTOR) 20 mg tablet Take 1 tablet (20 mg total) by mouth daily 30 tablet 11 sacubitriL-valsartan (ENTRESTO) 97-103 mg tablet Take 1 tablet by mouth 2 (two) times a day 60 tablet 11 No current facility-administered medications for [...] 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 Lives with the [employer] General ROS: negative for - Fever, chills, fatigue Psychological ROS: negative for - anxiety, [...] LDL ] No results found for: TRIG No results found for: POCCHOL , POCHDL , POCTRIG , POCLDL , POCNONHDL , POCCHLPL Echo Normal LV size, thickness, with low normal function. Normal RV size and systolic function. Paradoxic septal motion. Normal atria. Mild MR, TR. Estimate PASP 25 mmHg (assuming RA pressure 5 mmHg). Normal IVC, aorta 04/23/2016; [facility] Echo-mild LV enlargement, LVEF 40-45%, grade 1 diastolic dysfunction, G ALS- 12.7%, moderate left atrial enlargement, normal RV size and systolic function, no significant valvular abnormality, no pericardial effusion. 10/27/2023- [facility] DO Lipids-total cholesterol 225, HDL more than 100, triglycerides 52, LDL 114, glucose 109. 11/23/2023 EKG-sinus rhythm, PVC, right axis deviation. 11/23/2023 PHYSICAL EXAM Vitals BP 120/68 (BP Location: Right arm, Patient Position: Sitting) Pulse 71 Ht 157.5 cm (5' 2 ) Wt 73.8 kg (162 lb 12.8 oz) SpO2 98% BMI 29.78 kg/m?? General appearance - alert, no distress, [...] for this visit: LV dysfunction (Primary) - Ambulatory referral to Cardiology - NM MPI SPECT (Rest and/or Stress) Multiple Studies; Future FELTON (dyspnea on exertion) - NM MPI SPECT (Rest and/or Stress) Multiple Studies; Future Primary hypertension History of anal cancer History of tobacco abuse - Ambulatory referral to Cardiology Other orders - aspirin 81 mg enteric coated tablet; Take 1 tablet (81 mg total) by mouth daily - rosuvastatin (CRESTOR) 20 mg tablet; Take 1 tablet (20 mg total) by mouth daily - metoprolol XL (TOPROL-XL) 25 mg extended release tablet; Take 1 tablet (25 mg total) [...] COPD/emphysema. No prior history of clinicalMI, angina. EKG shows sinus rhythm, PVC, right axis deviation. Will proceed with a pharmacological MPI to check for any significant myocardial ischemia before consideration for any invasive ischemic workup. Medical treatment for LV dysfunction-change amlodipine to metoprolol succinate; change losartan to sacubitril/valsartan. Patient would like to wait on SGLT2 inhibitor for now. Add low-dose aspirin, and initiate statin. -blood pressure is fairly controlled. Antihypertensives will include sacubitril/valsartan, metoprolol succinate. Patient is also on HCTZ. Low-salt diet. Monitor blood pressure. -history of heavy tobacco abuse. Advised to continue to abstain from smoking. -personally reviewed patient's medical records including outside diagnostic testing as described above. -heart healthy/low-salt diet, aerobic activity as tolerated. -follow up in about 10-12 weeks or sooner if necessary after above testing is complete. Brown Kincaid MD 11/23/23 Voice recognition software was used to complete this document, therefore, heat treat worker variances may occur. documented in this encounter Miscellaneous Notes * Addendum Note - Khloe Toure MA - 11/23/2023 11:00 AM CDTAddended by: KHLOE TOURE on: 11/23/2023 01:10 PM Modules accepted: Orders * Addendum Note - Khloe Toure MA - 11/23/2023 11:00 AM CDTAddended by: KHLOE TOURE on: 11/24/2023 08:48 AM Modules accepted: Orders documented in this encounter Plan of Treatment Not on file documented as of this encounter Procedures Procedure Name Priority Date/Time Associated Diagnosis Comments ECG 12-LEAD Routine 11/24/2023 8:47 AM CDT LV dysfunction FELTON (dyspnea on exertion) POCT LIPID PANEL Routine 11/23/2023 1:09 PM CDT LV dysfunction FELTON (dyspnea on exertion) Primary hypertension documented in this encounter Results * NM MPI SPECT (Rest and/or Stress) Multiple Studies (12/07/2023 9:13 AM CDT) Anatomical Region Laterality Modality Body N/A Nuclear Medicine 12/07/2023 8:18 AM CDT Narrative 12/08/2023 7:07 AM CDT [facility] Cardiology [address], [place] [address] [address] [facility] [address], [place] [address] P:[phone] P:[phone] MPI Imaging Report Patient Name: ROXANA ANDERSEN S : 1950 Study Date: 12/07/2023 8:18:37 AM Gender: F Tech: KARLA ALEJANDRO Location: [facility] Provider: BROWN KINCAID ?Height(Cm): 157.5 BSA: ??Weight(Kg): 73.8 BMI: 29.75 ?Order Provider: BROWN KINCAID - PHYSICIAN: Referring Physician: Dr. Ricci. HCG Physician: Brown Kincaid M.D., Dana Interpreting Physician: Ignacio Smiley M.D.,Dana Stress Supervision: Brown Kincaid M.D., JamiCCarlos PROCEDURES: Myocardial perfusion imaging with Tc99M Sestamibi SPECT at rest and stress post regadenoson (Lexiscan) infusion. INDICATIONS: Congestive Heart Failure. LV dysfunction, reduced ejection fraction, Hypertension, Family Hx CAD, Former Smoker, I51.9 Heart disease, unspecified, and R06.09 Other forms of dyspnea. FINDINGS: Procedural Findings: One day rest/stress was used. Tc99m Sestamibi injected IV at rest was 10.5 millicuries. 32.4 millicuries of Tc99M Sestamibi injected IV during Lexiscan stress. Lexiscan 0.4mg administered IV over 10 seconds. Patient had no symptoms during stress test. Baseline heart rate was 62 BPM. Maximum Heart Rate Achieved was: 98 BPM. Baseline blood pressure was 144/78 mmHg. Post Stress Blood Pressure was 138/74 mmHg. Termination: Protocol complete. Resting ECG: Sinus rhythm. PVC. Post ECG: Specificity of the observed ST changes is reduced in light of the abnormal resting ECG. Arrhythmia: PVCs. Perfusion Findings: Abnormal perfusion imaging - see below. A TID of 0.85 was automatically calculated. defect 1: Size is medium. Severity is severe. Location of defect is in the apical anterior segment and apex. Reversibility is not present, defect is fixed. Type of defect is infarction. Attenuation noted due to increased gut uptake. LV Function: Left ventricular ejection fraction is 41 %. There is mild to moderate LV dysfunction. PostStress LV Wall Motion: There is akinesis in the apical segment. CONCLUSIONS: Left ventricular ejection fraction is 41 %. There is mild to moderate LV dysfunction. There is akinesis in the apical segment. Size is medium. Severity is severe. Location of defect is in the apical anterior segment and apex. Reversibility is not present, defect is fixed. Type of defect is infarction. Attenuation noted due to increased gut uptake. Specificity of the observed ST changes is reduced in light of abnormal resting ECG. Correlate with MPI. Electronically Signed By: Brown Kincaid MD, [facility] 2023-12-07 15:42:14 CDT Electronically Signed By: Ignacio Smiley MD, [facility] 2023-12-08 07:06:13 CDT Procedure Note Ignacio Smiley MD - 12/08/2023 [facility] Cardiology [address] [facility] [address], [place] [address] [address] [facility] [address], [place] [address] P:[phone] P:[phone] MPI Imaging Report Patient Name: ROXANA ANDERSEN S : 1950 Study Date: 12/07/2023 8:18:37 AM Gender: F Tech: [facility] Location: [facility] Provider: BROWN KINCAID Height(Cm): 157.5 BSA: Weight(Kg): 73.8 BMI: 29.75 Order Provider: BROWN KINCAID - PHYSICIAN: Referring Physician: Dr. Ricci. HCG Physician: Brown Kincaid M.D.,F.A.C.C. Interpreting Physician: Ignacio Smiley M.D.,F.A.C.C. StressSupervision: Brown Kincaid M.D., F.A.C.C. PROCEDURES: Myocardial perfusion imaging with Tc99M Sestamibi SPECT at rest and stresspost regadenoson (Lexiscan) infusion. INDICATIONS: Congestive Heart Failure. LV dysfunction, reduced ejection fraction,Hypertension, Family Hx CAD, Former Smoker, I51.9 Heart disease, unspecified, and R06.09 Otherforms of dyspnea. FINDINGS: Procedural Findings: One day rest/stress was used. Tc99m Sestamibi injected IV at rest was 10.5millicuries. 32.4 millicuries of Tc99M Sestamibi injected IV during Lexiscan stress.Lexiscan 0.4mg administered IV over 10 seconds. Patient had no symptoms during stresstest. Baseline heart rate was 62 BPM. Maximum Heart Rate Achieved was: 98 BPM. Baselineblood pressure was 144/78 mmHg. Post Stress Blood Pressure was 138/74 mmHg. Termination: Protocol complete. Resting ECG: Sinus rhythm. PVC. Post ECG: Specificity of the observed ST changes is reduced in light of the abnormalresting ECG. Arrhythmia: PVCs. Perfusion Findings: Abnormal perfusion imaging - see below. A TID of 0.85 was automaticallycalculated. defect 1: Size is medium. Severity is severe. Location of defect is in the apicalanterior segment and apex. Reversibility is not present, defect is fixed. Type of defect isinfarction. Attenuation noted due to increased gut uptake. LV Function: Left ventricular ejection fraction is 41 %. There is mild to moderate LVdysfunction. PostStress LV Wall Motion: There is akinesis in the apical segment. CONCLUSIONS: Left ventricular ejection fraction is 41 %. There is mild to moderate LVdysfunction. There is akinesis in the apical segment. Size is medium. Severity is severe. Location of defect is in the apicalanterior segment and apex. Reversibility is not present, defect is fixed. Type of defect isinfarction. Attenuation noted due to increased gut uptake. Specificity of the observed ST changes is reduced in light of abnormalresting ECG. Correlate with MPI. Electronically Signed By: Brown Kincaid MD, [facility] 2023-12-07 15:42:14 CDT Electronically Signed By: Ignacio Smiley MD, [facility] 2023-12-08 07:06:13 CDT Brown Kincaid MD IMG NM PROCEDURES Final Result * ECG 12 lead (11/24/2023 8:47 AM CDT) Brown Kincaid MD ECG ORDERABLES Final Result * POCT lipid panel (11/23/2023 1:09 PM CDT) [facility] Signature Cholesterol, POC 225 mg/dL Comment:GLU = 109 HDL, POC 100 mg/dL Triglycerides, POC 52 mg/dL LDL Cholesterol POC 114 mg/dL Chol/HDL Ratio, POC N/A Non-HDL Cholesterol, POC N/A mg/dL Cholesterol Total, POC 225 mg/dL Capillary blood 11/23/2023 1 :09 PM CDT Brown Kincaid MD POINT OF CARE TEST ORDERABLES Fi nal Result documented in this encounter Visit Diagnoses Diagnosis LV dysfunction- Primary Left heart failure FELTON (dyspnea on exertion) Other dyspnea and respiratory abnormality Primary hypertension Unspecified essential hypertension History of anal cancer History of tobacco abuse LV dysfunction Left heart failure FELTON (dyspnea on exertion) Other dyspnea and respiratory abnormality documented in this encounter Discontinued Medications Medication Sig Discontinue Reason Start Date End Da te aspirin 81 mg chewable tabletIndications:preven tion of thrombosis Take 1 tablet (81 mg total) by mouth every morning 11/23/2023 amLODIPine (NORVASC) 5 mg tablet Take 1 tablet (5 mg total) by mouth daily 11/23/2023 losartan (COZAAR) 100 mg tabletIndications:hypert ension Take 1 tablet (100 mg total) by mouth every morning 11/23/2023 documented as of this encounter Historical Medications * This list may reflect changes made after this encounter. fluticasone furoate-vilantero L (BREO ELLIPTA) 100-25 mcg/dose diskus inhaler Inhale 1 puff daily Rinse mouth with water after use. Do not swallow. added in this encounter Orders Outpatient Referral Count Last Ordered Date Fir st Ordered Date AMB REFERRAL TO CARDIOLOGY 1 11/23/2023 documented in this encounter Care Teams Java Performance Engineer Relationship Specialty Start Date End Date Heron Ricci DO PCP - General 04/19/16 Talon Steele MD [phone] [place] [address] Surgeon Colon and Rectal Surgery 08/07/21 documented as of this encounter
--- OUTSIDE RECORDS SUMMARY | 2024-02-28 09:00 | XMS_ITS | Referral Summary ---
Author Organization [facility] Address [address] [place] [address] Care Team Providers Care Pneumatic Riveter Name Role Phone Heron Ricci DO Primary Care Provider [phone] Talon Steele MD Unavailable [phone] Encounters Date Type Department Care Team Description 02/15/2024 Telephone [facility] Medical [facility] Cardiology [address] [place] [phone] Brown Kincaid MD Test Results 02/08/2024 3:20 PM [facility] - 02/08/2024 11:59 PM [facility] Hospital Encounter [facility] ([facility]) [address] [place] [phone] Abnormal computed tomography angiography (CTA); Coronary artery disease involving agdaagux heart, unspecified vessel or lesion type, unspecified whether angina present; Shortness of breath; LV dysfunction; Abnormal findings on diagnostic imaging of heart and coronary circulation Discharge Disposition: Discharge to home or self care 02/08/2024 Telephone [facility] Medical [facility] Cardiology [address] [place] [phone] Brown Kincaid MD 02/08/2024 11:32 AM [facility] - 02/08/2024 11:59 PM [facility] Hospital Encounter [facility] ([facility]) [address] [place] [phone] LV dysfunction; Abnormal nuclear stress test; FELTON (dyspnea on exertion) Discharge Disposition: Discharge to home or self care 01/13/2024 Telephone [facility] Cardiology [address] [facility] [address] [place] [phone] Brown Kincaid MD 01/11/2024 1:30 PM [facility] Office Visit [facility] Cardiology [address] [place] [address] [address] [place] [phone] Brown Kincaid MD LV dysfunction (Primary Dx); Abnormal nuclear stress test; FELTON (dyspnea on exertion); Primary hypertension; History of anal cancer; History of tobacco abuse 01/02/2024 Telephone [facility] Cardiology [address] [place] [address] [address] [place] [phone] Brown Kincaid MD Hypertension 12/07/2023 7:45 AM CDT Ancillary Procedure [facility] Cardiology [address] [place] [address] [address] [place] [phone] LV dysfunction; FELTON (dyspnea on exertion) from Last 3 Months Allergies Active Allergy Reactions Criticality Noted Date Comments Codeine Nausea only,Nausea A nd Vomiting 12/04/2008 Reaction: NAUSEA, Sulfa (Sulfonamide Antibiotics) Anaphylaxis High Medications naproxen (ALEVE) 220 mg tablet Take 1 tablet (220 mg total) by mouth every 12 (twelve) hours as needed Active omega 7-thu-ohs-fish oil 300-1,000 mg capsule Take 1 capsule by mouth 2 (two) times a week 3 Active vitamin E 400 unit capsule Take 1 capsule (400 Units total) by mouth 2 (two) times a week Active multivitamin capsule Take 1 capsule by mouth 2 (two) times a week Active VENTOLIN HFA 90 mcg/actuation inhaler Inhale 2 puffs as needed 8 Active nystatin powder Apply to affected area with pouch changes 30 g 1 8 Active Additional Information Patient not taking.Reported on 01/11/2024 cholecalciferol (VITAMIN D-3) 1,000 unit capsule Take 1 capsule (1,000 Units total) by mouth 2 (two) times a week Active ascorbic acid (VITAMIN C) 100 mg tablet Take 1 tablet (100 mg total) by mouth 2 (two) times a week Active vitamin B complex (B COMPLEX 1 ORAL) Take by mouth 2 (two) times a week Active calcium carbonate (CALCIUM 500 ORAL) Take by mouth 2 (two) times a week Active xczx-ico-ryo O-MI-dcbp-diet 29 125 mg-37.5 mg- 500 mcg-1.25mg capsule Take by mouth 2 (two) times a day Active meloxicam (MOBIC) 15 mg tablet 1 Active oxyBUTYnin XL (DITROPAN-XL) 10 mg 24 hr tablet Take 1 tablet (10 mg total) by mouth daily Active fluticasone furoate-vilante roL (BREO ELLIPTA) 100-25 mcg/dose diskus inhaler Inhale 1 puff daily Rinse mouth with water after use. Do not swallow. Active aspirin 81 mg enteric coated tablet Take 1 tablet (81 mg total) by mouth daily 30 tablet 11/23/19 25 Active rosuvastatin (CRESTOR) 20 mg tablet Take 1 tablet (20 mg total) by mouth daily 30 tablet 11/23/19 25 Active metoprolol XL (TOPROL-XL) 25 mg extended release tablet Take 1 tablet (25 mg total) by mouth daily 30 tablet 11/23/19 25 Active spironolactone (ALDACTONE) 25 mg tablet Take 1 tablet (25 mg total) by mouth daily 30 tablet 01/11/20 25 Active sacubitriL-vals tonia (ENTRESTO) 97-103 mg tabletIndicatio ns:chronic heart failure Take 1 tablet by mouth 2 (two) times a day 60 tablet 4 Active Active Problems Problem Noted Date Diagnosed Date Colostomy care 11/17/2017 HTN (hypertension) 11/11/2017 History of anal cancer 11/01/[address] (CMS/HCC) 11/01/2017 Other specified counseling 10/07/2017 History of rectal cancer 09/29/2016 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 Shortness of breath 05/17/2012 Acute postoperative abdominal pain S/P exploratory laparotomy Resolved Problems Problem Noted Date Diagnosed Date Resolved Date Anal cancer (CMS/HCC) 08/16/20172018 Overview (08/16/2017): Added automatically from request for surgery [id number] Immunizations Name Administration Dates Next Due Influenza, Quadrivalent, Spl it, Intramuscular 01/01/2016 Influenza, Trivalent, High D ose, Split, Preservative Free, Intramuscular 11/27/2018,11/27/2017,11/12/2016 Influenza, Trivalent, Preser vative Free, Intramuscular 12/21/2014 Influenza, Unspecified 11/29/2015 Pfizer SARS-CoV-2 Monovalent Vaccination (12+ Yrs) PURPLE 04/14/2020,03/31/2020 Pneumococcal Conjugate PCV 13 12/01/2018 Social History Tobacco Use Types Packs/Day [...] on file Legal Sex Female 8:43 AM [facility] Gender Identity Not on file Sexual Orientation Not on file Last Filed Vital Signs Vital Sign Reading Time Taken Comments Blood Pressure 124/60 02/08/2024 12:10 PM [facility] Pulse 61 02/08/2024 12:10 PM [facility] Temperature 36.4 ??C (97.6 ??F) 11/01/2023 9:06 AM CD T Respiratory Rate 16 05/04/2022 8:26 AM [facility] Oxygen Saturation 93% 01/11/2024 1:22 PM [facility] Inhaled Oxygen Concentration - - Weight 73.5 kg (162 lb) 01/11/2024 1:22 PM [facility] Height 157.5 cm (5' 2 ) 01/11/2024 1:22 PM [facility] Body Mass Index 29.63 01/11/2024 1:22 PM [facility] Plan of Treatment Not on file Procedures Procedure Name Priority Date/Time Associated Diagnosis Comments CT CORONARY FRACTIONAL FLOW RESERVE Schedule Routine, Read Routine (OP Routine) 02/09/2024 9:56 AM [facility] Abnormal computed tomography angiography (CTA) Coronary artery disease involving agdaagux heart, unspecified vessel or lesion type, unspecified whether angina present Shortness of breath LV dysfunction Abnormal findings on diagnostic imaging of heart and coronary circulation CT HEART MORPHOLOGY AND CORONARY ARTERIES W CONTRAST Schedule Routine, Read Routine (OP Routine) 02/08/2024 12:45 PM [facility] LV dysfunction Abnormal nuclear stress test FELTON (dyspnea on exertion) POCT CREATININE - DEVICE Routine 02/08/2024 12:21 PM [facility] NM MPI SPECT (REST AND/OR STRESS) MULTIPLE STUDIES Schedule Routine, Read Routine (OP Routine) 12/07/2023 9:13 AM CDT LV dysfunction FELTON (dyspnea on exertion) from Last 3 Months Results * CT Coronary Fractional Flow [place] (02/09/2024 9:56 AM [facility]) Anatomical Region Laterality Modality Chest N/A Computed Tomogra phy 02/09/2024 10:5 7 AM [facility] Impressions 02/13/2024 9:43 AM [facility] ADDENDUM: Coronary CTA Fractional Flow [place] (FFR) The below FFR CT results are associated with the coronary CTA report at ?? IMPRESSION: FFR CT Results: No hemodynamically significant lesions. ??No lesions with FFR CT d 0.8. The maximum anatomical stenosis is located in the left anterior descending artery and left circumflex artery coronary artery with lesion specific abnormal FFR CT of 0.96 and 0.94 respectively. ??The moderate lesion seen in the right coronary artery has a FFR value of 0.94. Recommendation: Consider medical therapy as front-line strategy. Dictated by: Lopez Hess M.D. The radiology attending physician has personally reviewed this study, and had reviewed and/or edited this written report and agrees with it. Electronically signed by: Raul Calvillo M.D. Narrative Procedure Note Raul Calvillo MD - 02/13/2024 IMPRESSION: ADDENDUM: Coronary CTA Fractional Flow [place] (FFR) The below FFR CT results are associated with the coronary CTA report at IMPRESSION: FFR CT Results: No hemodynamically significant lesions. No lesions with FFR CT d 0.8. The maximum anatomical stenosis is located in the left anterior descending artery and left circumflex artery coronary artery with lesion specific abnormal FFR CT of 0.96 and 0.94 respectively. The moderate lesion seen in the right coronary artery has a FFR value of 0.94. Recommendation: Consider medical therapy as front-line strategy. Dictated by: Lopez Hess M.D. The radiology attending physician has personally reviewed this study, and had reviewed and/or edited this written report and agrees with it. Electronically signed by: Raul Calvillo M.D. Brown Kincaid MD [facility] CT PROCEDURES Final Result * CTA Heart and Coronary Arteries W Morphology when Performed (02/08/2024 12:45 PM [facility]) Anatomical Region Laterality Modality Chest N/A Computed Tomogra phy 02/08/2024 1:08 PM [facility] Impressions 02/08/2024 1:08 PM [facility] Severe coronary calcification with a calcium score [...] Justin Penny M.D. Narrative 02/08/2024 1:08 PM [facility] Examination: CT coronary angiogram with and without [...] arteries. Electronically signed by: Justin Penny M.D. us Brown Kincaid MD IMG CT PROCEDURES Final Result * (ABNORMAL) POCT creatinine (02/08/2024 12:21 PM [facility]) Creatinine POC 0.5(L) 0.6 - 1.1 mg/dL Blood 02/08/2024 12:2 1 PM [facility] 02/08/2024 12:21 PM [facility] us Heron Ricci DO LAB POCT ORDERABLES - FOSTER CE Final Result Performing Organization Address City/State/[facility] Co de Phone Number ARVIND [facility] Department [place] [address] * NM MPI SPECT (Rest and/or Stress) Multiple Studies (12/07/2023 9:13 AM CDT) Anatomical Region Laterality Modality Body N/A Nuclear Medicine 12/07/2023 8:18 AM CDT Narrative 12/08/2023 7:07 AM CDT [facility] Medical Group Cardiology [address] [facility] [address] [address] [address] [facility] [address], [place] [address] P:[phone] P:[phone] MPI Imaging Report Patient Name: ROXANA ANDERSEN S : 1950 Study Date: 12/07/2023 8:18:37 AM Gender: F Tech: UMESH ALEJANDROMT Location: [place] Ref Provider: BROWN KINCAID ?Height(Cm): 157.5 BSA: ??Weight(Kg): 73.8 BMI: 29.75 ?Order Provider: BROWN KINCAID - PHYSICIAN: Referring Physician: Dr. Ricci. HCG Physician: Brown Kincaid M.D., [place] Interpreting Physician: Ignacio Smiley M.D.,Tarun. Stress Supervision: Brown Kincaid M.D., Dana PROCEDURES: Myocardial perfusion imaging with Tc99M Sestamibi [...] MPI. Electronically Signed By: Brown Kincaid MD, [facility] 2023-12-07 15:42:14 CDT Electronically Signed By: Ignacio Smiley MD, [facility] 2023-12-08 07:06:13 CDT Procedure Note Ignacio Smiley MD - 12/08/2023 [facility] Medical [facility] Cardiology [address] [facility] [address], [place] [address] [address] [facility] [address], [place] [address] P:[phone] P:[phone] MPI Imaging Report Patient Name: ROXANA ANDERSEN S : 1950 Study Date: 12/07/2023 8:18:37 AM Gender: F Tech: [facility] Location: [facility] Provider: BROWN KINCAID Height(Cm): 157.5 BSA: Weight(Kg): [...] MPI. Electronically Signed By: Brown Kincaid MD, [facility] 2023-12-07 15:42:14 CDT Electronically Signed By: Ignacio Smiley MD, [facility] 2023-12-08 07:06:13 CDT Brown Kincaid MD IMG [place] PROCEDURES Final Result from Last 3 [place] [address] [employer] MEDICARE GOLD [facility] [employer] MEDICARE GOLD Advance Directives For more information, please contact: [phone] Documents on File Type Date Recorded Patient Machine Pan Greaser Expl anation Power of Trigonometry Tutor 05/04/2022 9:07 AM ADVANCE DIRECTIVE 10/25/2017 7:00 AM POWER OF MANAGER APPOINTMENT * Full Code (Latest Code Status on File) Date Activated Date Inactivated Comments 10/17/2017 6:14 PM 10/21/2017 6:11 PM Care Teams Pneumatic Riveter Relationship Specialty Start Date End Date Heron Ricci DO PCP - General 04/19/16 Talon Steele MD [address] [facility] [phone] [place] [address] Surgeon Colon and Rectal Surgery 08/07/21
--- OUTSIDE RECORDS SUMMARY | 2024-02-28 09:00 | XMS_ITS | Encounter Summary ---
Author Organization [facility] Address [address] [place] [address] Care Team Providers Care Telephone Station Installer Name Role Phone Heron Ricci DO Primary Care Provider Unavailable Reason for Referral * (Routine) - Closed Specialty Diagnoses / Procedures Referred By Emilia berkowitz Referred To Contact Diagnoses Mammographic microcalcification Procedures MAMMO STEREOTACTIC BREAST BX RT Vivian Aguilera MD [address] [place] [address] Referral ID Status Reason Start Date Expiration Date Visits Re quested Visits Authorized [id number] Closed 12/04/2008 06/02/2009 1 1 Reason for Visit * (Routine) - Closed Specialty Diagnoses / Procedures Referred By Emilia berkowitz Referred To Contact Diagnoses Mammographic microcalcification Procedures MAMMO STEREOTACTIC BREAST BX RT Vivian Aguilera MD [address] [place] [address] Referral ID Status Reason Start Date Expiration Date Visits Re quested Visits Authorized [id number] Closed 12/04/2008 06/02/2009 1 1 Encounter Details Date Type Department Care Team (Latest Contact Info) Description 12/06/2008 1:50 PM CDT - 12/06/2008 11:59 PM CDT Hospital Encounter [facility] [place] [address] [place] [phone] Vivian Aguilera MD [address] [place] [phone] Discharge Disposition: Home or Self Care Social History Tobacco Use Types Packs/Day Years Used Date Smoking Tobacco: Former Comments:2005 Alcohol Use Standard Drinks/Week Comments Yes 0 (1 standard drink = 0.6 oz pur e alcohol) moderate Sex and Gender Information Value Date Recorded Sex Assigned at Not on file Gender Identity Not on file Sexual Orientation Not on file documented as of this encounter H&P Notes * Stl Scanning, Provider - 12/19/2008 7:56 PM CDT documented in this encounter Miscellaneous Notes * Scanned Form - Stl Scanning, Provider - 12/19/2008 7:56 PM CDT * Inpatient Medication Chart - Stl Scanning, Provider - 12/19/2008 7:56 PM CDT documented in this encounter Plan of Treatment Not on file documented as of this encounter Procedures Procedure Name Priority Date/Time Associated Diagnosis Comments PATHOLOGY Routine 12/06/2008 5:00 PM CDT MAMMO STEREOTACTIC BREAST BX RT Routine 12/06/2008 2:48 PM CDT Mammographic Microcalcification documented in this encounter Results * PATHOLOGY (12/06/2008 5:00 PM CDT) SURGICAL PATHOLOGY ?[facility] ?[address] ? [place], [place] ??[address] ? Patient: ??GANESH ROXANA ? : ??1950 ? Procedure Date: ??12/06/2008 ? Accession Date: ??12/07/2008 ? Case No: ??[id number] ? Ordering Dr: ??NIR CMOBS ? Case type SW is performed by [facility], [place], [place]; ? all other case types are performed by [facility], [place], ? [place] ?SURGICAL PATHOLOGY & NON-GYNECOLOGIC CYTOPATHOLOGY REPORT ? DIAGNOSIS ? BREAST, RIGHT, NEEDLE CORE BIOPSY: ? - FIBROCYSTIC CHANGES AND MICROCALCIFICATION S. ? Specimen Description: ? Right breast. ? Operative Procedure: ? Right breast stereotactic core biopsy. ? Patient Information/Histor y/Diagnosis: ? Right breast calcifications. ? Gross: ? Received in a single container labeled ??Roxana Andersen, right breast ? calcifications are six fibrofatty tissue cores, all measuring 2 cm in ? length and 0.3 cm in diameter. These are entirely submitted labeled A1 and ? A2. ? [facility] 12.07.2008 10:50 am ? Microscopic: ? The slides are labeled [id number], Roxana Andersen. ? Sections of the needle core biopsy of the right breast show benign breast ? tissue with fibrocystic changes and multiple microcalcification s. The ? changes include foci of ductal hyperplasia without atypia, columnar cell ? change, small cysts, stromal fibrosis, and apocrine metaplasia. There is no ? evidence of atypia or malignancy in the biopsy. ? COMMENT: Certain proliferative lesions identified in breast biopsies are ? associated with an increased relative risk for the development of invasive ? carcinoma. The relative risks are compared to the risks for women who have ? not had a biopsy. The relative risks associated with specific entities are ? listed below. ? 1. ??No increased risk: adenosis; duct ectasia; fibrosis; fibroadenoma ? (without complex features); mild hyperplasia without atypia; cysts; ? apocrine or squamous metaplasia; ? 2. ??Slightly increased risk (1.5- to 2.0-fold): fibroadenoma with complex ? features; moderate or florid hyperplasia without atypia; sclerosing ? adenosis; papilloma; ? 3. ??Moderately increased risk (4.0- to 5.0-fold): atypical lobular ? hyperplasia; atypical ductal hyperplasia; ? 4. ??Markedly increased risk (8.0- to 10.0-fold): ductal carcinoma in situ; ? atypical lobular hyperplasia or atypical ductal hyperplasia when there is ? also a family history of breast carcinoma affecting a first-degree ? relative. ? Reference: Arch Pathol Lab Med 1998;122:[id number] . ? [facility] 12.09.2008 10:41 am ? Staging Form: ? No. ? ELECTRONIC SIGNATURE FOR ALY GERARDO MD- 12/09/08 04:31 pm [facility] Specimen of unknown material (specimen) 12/06/2008 5:00 PM CDT Nir Muse MD PATHOLOGY/CYTOLOGY ORDERABLES [facility] CLIA# [id number] [address] [facility] [address] [place] [address] * MAMMO STEREOTACTIC BREAST BX RT (12/06/2008 2:48 PM CDT) Anatomical Region Laterality Modality Breast Right Ultrasound Addenda Addendum by Nir Combs on 12/12/2008 8:15 AM CDT The pathology from the patient's recent right breast stereotactic core biopsy revealed fibrocystic changes and microcalcifications. ??Findings are benign and concordant. The patient will be informed of the above findings by the office of Dr. Vivian Aguilera. Impressions 12/11/2008 3:46 PM CDT : ?? Technically successful stereotactic core biopsy with tissue marker placement. Narrative 12/11/2008 3:46 PM CDT VACUUM ASSISTED CORE BIOPSY OF THE RIGHT BREAST UTILIZING STEREOTACTIC GUIDANCE AND SPECIMEN RADIOGRAPH. DATE: 12/06/2008 HISTORY: The patient had mammograms performed at [facility] at [facility] in [place], [place]. These demonstrated right breast microcalcifications. A stereotactic core biopsy has been requested. PROCEDURE AND FINDINGS: The risks and potential benefits of the procedure were discussed with the patient and written informed consent was obtained. The patient was placed in the prone position on the stereotactic table with the breast in craniocaudad compression and the area of interest was localized and targeted utilizing digital imaging with stereotaxis. After sterile preparation of the skin, 1% lidocaine was utilized for local anesthesia at the skin puncture site and 2% lidocaine with epinephrine was utilized for deeper local anesthesia/hemostasis about the biopsy site. The vacuum assisted biopsy needle was advanced to the level of the calcifications of interest from a craniocaudal approach utilizing stereotactic guidance and a total of 6 tissue cores were obtained. The specimen radiograph demonstrated that the calcifications of interest are included in the tissue cores. The needle was removed and hemostasis was achieved. A metallic clip was deployed into the biopsy cavity. ??Dermabond and steristrips were applied to the area for closure. ??An ice pack was applied to the site. ?? A right breast full field digital diagnostic mammogram was performed after the procedure and demonstrated adequate placement of the clip. The patient tolerated the procedure well and there is no evidence of significant immediate complication. The patient was given verbal as well as written post-procedure instructions prior to release from the department. The tissue cores were submitted to surgical pathology in formalin for histological analysis. Procedure Note CombsNir azragoza - 12/09/2008 VACUUM ASSISTED CORE BIOPSY OF THE RIGHT BREAST UTILIZING STEREOTACTICGUIDANCE AND SPECIMEN RADIOGRAPH. DATE: 12/06/2008 HISTORY: The patient [facility] in [place], [place]. These demonstratedright breast microcalcifications. A stereotactic core biopsy has beenrequested. PROCEDURE AND FINDINGS: The risks and potential benefits of the procedurewere discussed with the patient and written informed consent was obtained.The patient was placed in the prone position on the stereotactic tablewith the breast in craniocaudad compression and the area of interest waslocalized and targeted utilizing digital imaging with stereotaxis. After sterile preparation of the skin, 1% lidocaine was utilized for localanesthesia at the skin puncture site and 2% lidocaine with epinephrine wasutilized for deeper local anesthesia/hemostasis about the biopsy site. Thevacuum assisted biopsy needle was advanced to the level of thecalcifications of interest from a craniocaudal approach utilizingstereotactic guidance and a total of 6 tissue cores were obtained. Thespecimen radiograph demonstrated that the calcifications of interest areincluded in the tissue cores. The needle was removed and hemostasis wasachieved. A metallic clip was deployed into the biopsy cavity. Dermabondand steristrips were applied to the area for closure. An ice pack wasapplied to the site. A right breast full field digital diagnostic mammogram was performed afterthe procedure and demonstrated adequate placement of the clip. The patient tolerated the procedure well and there is no evidence ofsignificant immediate complication. The patient was given verbal as wellas written post- procedure instructions [facility] The tissue cores were submitted to surgical pathology informalin for histological analysis. IMPRESSION: Technically successful stereotactic core biopsy with tissuemarker placement. Vivian Aguilera MD MAMMO ORDERABLES documented in this encounter Visit Diagnoses Diagnosis Mammographic microcalcification documented in this encounter Administered Medications Inactive Administered Medications - up to 3 most recent administrations Medication Order MAR Action Action Date Dose Rate Site lidocaine PF 1% (XYLOCAINE MPF) injection 30 mL 30 mL, Intradermal, ONE TIME ONLY, 1 dose, On Tue12/06/08 at 1445, Routine Given 12/06/2008 2:30 PM CDT 10 mL Operative Site lidocaine-epiNEPHrine (XYLOCAINE-EPI) 2 %-1:100,000 injection 20 mL 20 mL, Injection, ONE TIME ONLY, 1 dose, On Tue12/06/08 at 1445, Routine Given 12/06/2008 2:30 PM CDT 8 mL Operative Site sodium bicarbonate 4.2 % injection 2.5 mEq 2.5 mEq, See Admin Instructions, ONE TIME ONLY, 1 dose, On Tue12/06/08 at 1445, Routine Given 12/06/2008 2:30 PM CDT 0.5 mEq Operative Site documented in this encounter Care Teams Telephone Station Installer Relationship Specialty Start Date End Date Heron Ricci DO PCP - General 12/04/0802/12 documented as of this encounter
--- OUTSIDE RECORDS SUMMARY | 2024-02-28 09:00 | XMS_ITS | Clinical Summary ---
Author Organization [facility] Address [address] [place] [address] Care Team Providers Care Skeins Yarn Examiner Name Role Phone Heron Ricci DO Primary Care Provider [phone] Talon Steele MD Unavailable [phone] Allergies Active Allergy Reactions Criticality Noted Date Comments Codeine Nausea only,Nausea A nd Vomiting 12/04/2008 Reaction: NAUSEA, Sulfa (Sulfonamide Antibiotics) Anaphylaxis High Medications naproxen (ALEVE) 220 mg tablet Take 1 tablet (220 mg total) by mouth every 12 (twelve) hours as needed Active omega 0-pjj-lsy-fish oil 300-1,000 mg capsule Take 1 capsule [...] mouth 2 (two) times a week Active uavt-ugf-nrn G-VD-henx-diet 29 125 mg-37.5 mg- 500 mcg-1.25mg capsule [...] (08/16/2017): Added automatically from request for surgery [id number] Encounters Date Type Department Care Team Description 02/15/2024 Telephone [facility] Cardiology [address] [place] [address] [place] [phone] Brown Kincaid MD Test Results 02/08/2024 3:20 PM NEUROPSYCHIATRIST - 02/08/2024 11:59 PM NEUROPSYCHIATRIST Hospital Encounter [facility] ([facility]) [address] [place] [address] Abnormal computed tomography angiography (CTA); Coronary artery disease involving cahto heart, unspecified vessel or lesion type, unspecified whether angina present; Shortness of breath; LV dysfunction; Abnormal findings on diagnostic imaging of heart and coronary circulation Discharge Disposition: Discharge to home or self care 02/08/2024 11:32 AM NEUROPSYCHIATRIST - 02/08/2024 11:59 PM NEUROPSYCHIATRIST Hospital Encounter [facility] ([facility]) [address] [place] [address] LV dysfunction; Abnormal nuclear stress test; FELTON (dyspnea on exertion) Discharge Disposition: Discharge to home or self care 02/08/2024 Telephone [facility] Cardiology [address] [place] [address] [place] [phone] Brown Kincaid MD 01/13/2024 Telephone [facility] Cardiology [address] [place] [address] [place] [phone] Brown Kincaid MD 01/11/2024 1:30 PM NEUROPSYCHIATRIST Office Visit [facility] Cardiology [address] [place] [address] [place] [phone] Brown Kincaid MD LV dysfunction (Primary Dx); Abnormal nuclear stress test; FELTON (dyspnea on exertion); Primary hypertension; History of anal cancer; History of tobacco abuse 01/02/2024 Telephone [facility] Cardiology [address] [place] [address] [place] [phone] Brown Kincaid MD Hypertension 12/07/2023 7:45 AM CDT Ancillary Procedure [facility] Cardiology [address] [place] [address] [place] [phone] LV dysfunction; FELTON (dyspnea on exertion) from Last 3 Months Immunizations Name Administration Dates Next Due Influenza, Quadrivalent, Spl it, Intramuscular 01/01/2016 Influenza, Trivalent, High D ose, Split, Preservative Free, Intramuscular 11/27/2018,11/27/2017,11/12/2016 Influenza, Trivalent, Preser vative Free, Intramuscular 12/21/2014 Influenza, Unspecified 11/29/2015 Pfizer SARS-CoV-2 Monovalent Vaccination (12+ Yrs) PURPLE 04/14/2020,03/31/2020 Pneumococcal Conjugate PCV 13 12/01/2018 Surgical History Surgery Date Site/Laterality Comments BREAST BIOPSY Biopsy Breast Open - (Added by TW Conv) BREAST SURGERY Breast Surgery Enlargement Procedure Bilateral - (Added by TW Conv) INTRACRANIAL ANEURYSM REPAIR coiling 2005 EXAMINATION UNDER ANESTHESIA 12/23/2016 EUA with biopsy RECTAL BIOPSY MASTOPEXY EXPLORATORY LAPAROTOMY TUBAL LIGATION EXAMINATION UNDER ANESTHESIA 08/26/2017 with anal biopsy ABDOMINOPERINEAL PROCTOCOLECTOMY 10/17/2017 1. Abdominoperineal resection with posterior vaginectomy. 2. A rectus abdominis flap reconstruction of pelvic floor. Medical History Medical History Date Comments Nonruptured cerebral aneurysm Ce rebral arterial aneurysm - (Added by TW Conv) Personal history of other in fectious and parasitic diseases History of mumps - (Added by TW Conv) Personal history of other di seases of the digestive system History of esophageal reflux - (Added by TW Conv) COPD (chronic obstructive pu lmonary disease) (HCC) Hypertension Anal cancer (CMS/HCC) (HCC) tx. with chemo & radiation History of anal cancer 11/01/[address] (CMS/HCC) (HCC) 11/01/2017 Shortness of breath Family History Medical History Relation Name Comments Bladder Cancer Brother Family histor y of bladder cancer - (Added by TW Conv) Heart attack Brother Heart attack Father Heart disease Father Heart Disease - (Added by TW Conv) Breast cancer Mother Breast Cancer - (Added by TW Conv) Colon polyps Mother Diabetes Other 1 Diabetes Mellit us - (Added by TW Conv) Cancer Other 2 Cancer - (Added by TW Conv) Relation Name Status Comments Brother Father Mother Other 1 Other 2 Social History Tobacco Use Types Packs/Day Years [...] on file Legal Sex Female 8:43 AM NEUROPSYCHIATRIST Gender Identity Not on file Sexual Orientation Not on file Obstetrics History Last Filed Vital Signs Vital Sign Reading Time Taken Comments Blood Pressure 124/60 02/08/2024 12:10 PM NEUROPSYCHIATRIST Pulse 61 02/08/2024 12:10 PM NEUROPSYCHIATRIST Temperature 36.4 ??C (97.6 ??F) 11/01/2023 9:06 AM CD T Respiratory Rate 16 05/04/2022 8:26 AM NEUROPSYCHIATRIST Oxygen Saturation 93% 01/11/2024 1:22 PM NEUROPSYCHIATRIST Inhaled Oxygen Concentration - - Weight 73.5 kg (162 lb) 01/11/2024 1:22 PM NEUROPSYCHIATRIST Height 157.5 cm (5' 2 ) 01/11/2024 1:22 PM NEUROPSYCHIATRIST Body Mass Index 29.63 01/11/2024 1:22 PM NEUROPSYCHIATRIST Plan of Treatment Health Maintenance Due Date Last Done Comments Breast Cancer Screening-Mammogram 1950 Colon Cancer Screening-Colonoscopy 1950 Depression Screening 1950 Fall Risk Assessment 1950 Hepatitis C Screening 1950 Osteoporosis Screening-Bone Density Scan 1950 DTaP/Tdap/Td Vaccine (1 - Tdap) 1962 Hepatitis B Screening 1969 Lung Cancer Screening 2001 Zoster Vaccine (1 of 2) 2001 Well Visit 65+ 2016 Pneumococcal vaccine 65+ (2 of 2 - PPSV23 or PCV20) 12/02/2019 12/01/2018 Covid-19 Vaccine (3 - 2023-2 5 season) 2023 04/14/2020, 03/31/2020 Influenza Vaccine (#1) 2023 9, 11/27/2017, 11/12/2016, Additional history exists Procedures Procedure Name Priority Date/Time Associated Diagnosis Comments CT CORONARY FRACTIONAL FLOW RESERVE Schedule Routine, Read Routine (OP Routine) 02/09/2024 9:56 AM NEUROPSYCHIATRIST Abnormal computed tomography angiography (CTA) Coronary artery disease involving cahto heart, unspecified vessel or lesion type, unspecified whether angina present Shortness of breath LV dysfunction Abnormal findings on diagnostic imaging of heart and coronary circulation CT HEART MORPHOLOGY AND CORONARY ARTERIES W CONTRAST Schedule Routine, Read Routine (OP Routine) 02/08/2024 12:45 PM NEUROPSYCHIATRIST LV dysfunction Abnormal nuclear stress test FELTON (dyspnea on exertion) POCT CREATININE - DEVICE Routine 02/08/2024 12:21 PM NEUROPSYCHIATRIST NM MPI SPECT (REST AND/OR STRESS) MULTIPLE STUDIES Schedule Routine, Read Routine (OP Routine) 12/07/2023 9:13 AM CDT LV dysfunction FELTON (dyspnea on exertion) from Last 3 Months Results * CT Coronary Fractional Flow Bigelow (02/09/2024 9:56 AM NEUROPSYCHIATRIST) Anatomical Region Laterality Modality Chest N/A Computed Tomogra phy 02/09/2024 10:5 7 AM NEUROPSYCHIATRIST Impressions 02/13/2024 9:43 AM NEUROPSYCHIATRIST ADDENDUM: Coronary CTA Fractional Flow Bigelow (FFR) The below FFR CT results are [...] 02/13/2024 IMPRESSION: ADDENDUM: Coronary CTA Fractional Flow Bigelow (FFR) The below FFR CT results are [...] it. Electronically signed by: Raul Calvillo M.D. us Brown Kincaid MD IM CT PROCEDURES Final Result * CTA Heart and Coronary Arteries W Morphology when Performed (02/08/2024 12:45 PM NEUROPSYCHIATRIST) Anatomical Region Laterality Modality Chest N/A Computed Tomogra phy 02/08/2024 1:08 PM NEUROPSYCHIATRIST Impressions 02/08/2024 1:08 PM NEUROPSYCHIATRIST Severe coronary calcification with a calcium score [...] Justin Penny M.D. Narrative 02/08/2024 1:08 PM NEUROPSYCHIATRIST Examination: CT coronary angiogram with and without [...] Electronically signed by: Justin Penny M.D. Brown Kincaid MD IMG CT PROCEDURES Final Result * (ABNORMAL) POCT creatinine (02/08/2024 12:21 PM NEUROPSYCHIATRIST) Creatinine POC 0.5(L) 0.6 - 1.1 mg/dL Blood 02/08/2024 12:2 1 PM NEUROPSYCHIATRIST 02/08/2024 12:21 PM NEUROPSYCHIATRIST Heron Ricci DO LAB POCT ORDERABLES - FOSTER CE Final Result Performing Organization Address City/State/[facility] Co de Phone Number [facility] [place] [address] * NM MPI SPECT (Rest and/or Stress) Multiple Studies (12/07/2023 9:13 AM CDT) Anatomical Region Laterality Modality Body N/A Nuclear Medicine 12/07/2023 8:18 AM CDT Narrative 12/08/2023 7:07 AM CDT [facility] Cardiology [address] [facility] [address], [place] [address] [address] [facility] [address], [place] [address] P:[phone] P:[phone] MPI Imaging Report Patient Name: ROXANA ANDERSEN S : 1950 Study Date: 12/07/2023 8:18:37 AM Gender: F Tech: UMESH ALEJANDROMT Location: [place] Ref Provider: BROWN KINCAID ?Height(Cm): 157.5 BSA: ??Weight(Kg): 73.8 BMI: 29.75 ?Order Provider: BROWN KINCAID - PHYSICIAN: Referring Physician: Dr. Ricci. HCG Physician: Brown Kincaid M.D., Dana Interpreting Physician: Ignacio Smiley M.D.,Dana Stress Supervision: Brown Kincaid M.D., Dana PROCEDURES: [...] MPI. Electronically Signed By: Brown Kincaid MD, [facility] 2023-12-07 15:42:14 CDT Electronically Signed By: Ignacio Smiley MD, [facility] 2023-12-08 07:06:13 CDT Procedure Note Ignacio Smiley MD - 12/08/2023 [facility] Cardiology [address] [facility] [address], [place] [address] [address], [place] [address] P:[phone] P:[phone] MPI Imaging Report Patient Name: ROXANA ANDERSEN S : 1950 Study Date: 12/07/2023 8:18:37 AM Gender: F Tech: JAVON [facility] Location: [facility] Provider: BROWN KINCAID Height(Cm): 157.5 BSA: [...] MPI. Electronically Signed By: Brown Kincaid MD, [facility] 2023-12-07 15:42:14 CDT Electronically Signed By: Ignacio Smiley MD, [facility] 2023-12-08 07:06:13 CDT Brown Kincaid MD IM NM PROCEDURES Final Result from Last 3 Months Insurance [employer] MEDICARE GOLD [facility] AET[employer] MEDICARE GOLD Advance Directives For more information, please contact: [phone] Documents on File Type Date Recorded Patient Proposal Editor Expl anation Power of Air Conditioning Installer Supervisor 05/04/2022 9:07 AM ADVANCE DIRECTIVE 10/25/2017 7:00 AM POWER OF WARP PICKER * Full Code (Latest Code Status on File) Date Activated Date Inactivated Comments 10/17/2017 6:14 PM 10/21/2017 6:11 PM Care Teams Skeins Yarn Examiner Relationship Specialty Start Date End Date Heron Ricci DO PCP - General 04/19/16 Talon Steele MD [phone] [place] [address] Surgeon Colon and Rectal Surgery 08/07/21
--- OUTSIDE RECORDS SUMMARY | 2024-02-28 09:00 | XMS_ITS | Encounter Summary ---
Author Organization [facility] Address [address] [place] [address] Care Team Providers Care Rn Midwife Name Role Phone Heron Ricci DO Primary Care Provider Unavailable Encounter Details Date Type Department Care Team (Latest Contact Info) Description 12/06/2008 1:53 PM CDT - 12/06/2008 11:59 PM CDT Hospital Encounter [facility] [place] [address] [place] [phone] Vivian Aguilera MD [address] [place] [address] Discharge Disposition: Home or Self Care Social [...] Name Priority Date/Time Associated Diagnosis Comments MAMMO BREAST SPECIMEN RT Routine 12/06/2008 2:50 PM CDT Mammographic Microcalcification documented in this encounter Results * MAMMO BREAST SPECIMEN RT (12/06/2008 2:50 PM CDT) Anatomical Region Laterality Modality Breast Right Mammography Impressions 12/08/2008 4:15 PM CDT : ?? Technically successful stereotactic core biopsy with tissue marker placement. Narrative 12/08/2008 4:15 PM CDT VACUUM ASSISTED CORE BIOPSY OF THE RIGHT BREAST UTILIZING STEREOTACTIC GUIDANCE AND SPECIMEN RADIOGRAPH. DATE: 12/06/2008 HISTORY: The patient had mammograms performed at [facility] in [place], [place]. These demonstrated right breast microcalcifications. A [...] in formalin for histological analysis. Procedure Note Anabela Rutledge - 12/09/2008 VACUUM ASSISTED CORE BIOPSY OF THE RIGHT BREAST UTILIZING STEREOTACTICGUIDANCE AND SPECIMEN RADIOGRAPH. DATE: 12/06/2008 HISTORY: The patient had mammograms performed at [facility] in [place], [place]. These demonstratedright breast microcalcifications. A stereotactic [...] post- procedure instructions [facility] The [facility]. IMPRESSION: Technically successful stereotactic core biopsy with tissuemarker placement. Vivian Aguilera MD MAMMO ORDERABLES documented in this encounter Visit Diagnoses Diagnosis Mammographic microcalcification documented in this encounter Care Teams Rn Midwife Relationship Specialty Start Date End Date Heron Ricci DO PCP - General 12/04/0802/12 documented as of this encounter
--- OUTSIDE RECORDS SUMMARY | 2024-02-28 09:00 | XMS_ITS | Encounter Summary ---
Author Organization [facility] Address [address] [place] [address] Care Team Providers Care Stained Glass Glazier Helper Name Role Phone Heron Ricci DO Primary Care Provider Unavailable Reason for Referral * (Routine) - Closed Specialty Diagnoses / Procedures Referred By Contac t Referred To Contact Diagnoses Mammographic microcalcification Procedures MAMMO STEREOTACTIC BREAST BX RT Vivian Aguilera MD [address] [place] [address] Referral ID Status Reason Start Date Expiration Date Visits Re quested Visits Authorized [id number] Closed 12/04/2008 06/02/2009 1 1 Reason for Visit * Reason Comments Abnormal Mammogram Encounter Details Date Type Department Care Team (Latest Contact Info) Description 12/04/2008 8:45 AM CDT Office Visit [facility] [address] [place] [address] Vivian Aguilera MD [address] [place] [address] Mammographic Microcalcification (Primary Dx) Social History Tobacco Use Types [...] Mass Index 28.73 12/04/2008 8:38 AM CDT documented in this encounter Progress Notes * Vivian Aguilera MD - 12/04/2008 9:10 AM CDT Roxana Andersen is a 58 y.o. female She is self-referred. A mammogram done recently at [facility] in [place] showed a cluster of calcifications the right breast, BI-RADS 4. She denies any breast symptoms. She had bilateral augmentation mammoplasty by Dr. Díaz in 1980, silicone. She has a family history breast cancer affecting her mother in her 60s, and a paternal aunt age unknown. Her other surgical history is noted for a brain aneurysm which was clipped, [facility], 3 years ago. Allergies Allergen Reactions ??? Codeine Nausea and Vomiting No current outpatient prescriptions on file. She is on a drug for hypertension but does not remember the name Past Medical History Diagnosis Date ??? HTN (Hypertension) Patient Active Problem List Diagnoses Code ??? HTN (Hypertension) 401.9AF Past Surgical History Procedure Date ??? Hx laparotomy ??? Hx aneurysm surgery ??? Hx breast biopsy late rt brst ??? Hx breast augmentation 1980 ??? Hx tubal ligation Family History Problem Relation ??? Heart Disease Father ??? Breast Cancer Mother dx approx 60 yrs ??? Heart Disease Mother ??? Heart Disease Brother ??? Cancer Brother kidney ??? Stroke Brother ??? Other Brother diabetes ??? Breast Cancer Paternal Aunt History Social History ??? Marital Status: Spouse Name: N/A Number of Children: 0 ??? Years of Education: N/A Occupational History ??? [employer] Social History Main Topics ??? Tobacco Use: Quit 2004 ??? Alcohol Use: Yes moderate ??? Drug Use: No On examination: BP 150/90 Ht 5' 6 (1.676 m) Wt 178 lb (80.74 kg) Body mass index is 28.73 kg/(m^2). Well-developed, well-nourished female. No cyanosis, no anemia. Breast exam: status post bilateral augmentation mammoplasty, no erythema, no peau d'orange, no Paget's disease. No masses are felt in either breast. No nipple discharge.capsular contracture bilaterally Lymphatics: No axillary, supraclavicular or cervical adenopathy. Head and neck: Normocephalic, atraumatic, trachea central, no thyromegaly, no neck masses. Back: No lesions Chest: Good expansion, clear to auscultation and percussion, no rales or rhonchi. Cardiovascular: Mcleod undisplaced, normal first and second heart sounds, no murmurs. Abdomen: Soft, nontender, no masses, no hepatosplenomegaly. Extremities: Full range of motion both upper extremities, no edema. Neurologic exam: Grossly intact. I reviewed her mammograms, I agree there is a cluster of calcifications, BI-RADS 4. I reviewed withher the options for biopsy either stereotactic biopsy, or a needle localized excisional breast biopsy. The chance of malignancy 20%. I used diagrams to illustrate points. I went over the risks such as bleeding, infection, and scarring.she and her friend who accompanied her full understanding of our discussion. If the biopsy does reveal carcinoma, or atypia, she will require further surgery. documented in this encounter Plan of Treatment Not on file documented as of this encounter Results * MAMMO STEREOTACTIC BREAST BX RT (12/06/2008 2:48 PM CDT) Anatomical Region Laterality Modality Breast Right Ultrasound Addenda Addendum by Anabela Rutledge on 12/12/2008 8:15 AM CDT The pathology [...] HISTORY: The patient had mammograms performed at [facility] in [place], [place]. These demonstrated right breast microcalcifications. A [...] HISTORY: The patient had mammograms performed at [facility] [place], [place]. These demonstratedright breast microcalcifications. A stereotactic [...] post- procedure instructions [facility]. The [facility]. IMPRESSION: Technically successful stereotactic core biopsy with tissuemarker placement. Vivian Aguilera MD MAMMO ORDERABLES documented in this encounter Visit Diagnoses Diagnosis Mammographic microcalcification- Primary Mammographic microcalcification documented in this encounter Care Teams Stained Glass Glazier Helper Relationship Specialty Start Date End Date Heron Ricci DO PCP - General 12/04/0802/12 documented as of this encounter
--- OUTSIDE RECORDS SUMMARY | 2024-02-28 09:00 | XMS_ITS | Encounter Summary ---
Author Organization [facility] Address [address] [place] [address] Care Team Providers Care Metal Stud Framer Name Role Phone Heron Ricci DO Primary Care Provider Unavailable Encounter Details Date Type Department Care Team (Latest Contact Info) Description 12/06/2008 5:55 PM CDT - 12/06/2008 11:59 PM T Hospital Encounter [facility] Laboratory Support Services [facility] [address] [place] [address] Anabela Muse MD NO ADDRESS ON FILE Discharge Disposition: Home or Self Care Social [...] on filedocumented in this encounter Care Teams Metal Stud Framer Relationship Specialty Start Date End Date Heron Ricci DO PCP - General 12/04/0802/12 documented as of this encounter
--- OUTSIDE RECORDS SUMMARY | 2024-02-28 09:00 | XMS_ITS | Encounter Summary ---
Author Organization [facility] Address [address] [place] [address] Care Team Providers Care Industrial Design Intern Name Role Phone Heron Ricci DO Primary Care Provider Unavailable Reason for Visit * Reason Onset Date Comments Results 12/11/2008 pathology Encounter Details Date Type Department Care Team (Late st Contact Info) Description 12/11/2008 Telephone [facility] [address] [place] [id number] Vivian Aguilera MD [address] [place] [id number] Results (pathology) Social History Tobacco Use Types Packs/Day Years [...] encounter Miscellaneous Notes * Telephone Encounter - Rose Morin - 12/11/2008 12:06 PM CDT Gave pathology results on right stereotactic core biopsy done on December 06. Allergy revealed fibrocystic change microcalcifications. It is benign and concordant per Dr. Rutledge. Will set up followup appointment after Dr. Aguilera reviews pathology. Will call the office with complaints. documented in this encounter Plan of Treatment Not on file documented as of this encounter Visit Diagnoses Not on filedocumented in this encounter Care Teams Industrial Design Intern Relationship Specialty Start Date End Date Heron Ricci DO PCP - General 12/04/0802/12 documented as of this encounter
--- OUTSIDE RECORDS SUMMARY | 2024-02-28 09:00 | XMS_ITS | Encounter Summary ---
Author Organization [facility] Address [address] [place] [address] Care Team Providers Care Lead Systems Architect Name Role Phone Heron Ricci DO Primary Care Provider [phone] Talon Steele MD Unavailable [phone] Reason for Referral * MRI/CAT/PET Scan (Routine) - Closed Specialty Diagnoses / Procedures Referred By Contac t Referred To Contact Radiology Diagnoses LV dysfunction Abnormal nuclear stress test FELTON (dyspnea on exertion) Procedures CTA Heart and Coronary Arteries W Morphology when Performed Brown Mcdaniel MD [address] [facility] [address] [place] [address] Phone: tel: fax: [address] [address] Referral ID Status Reason Start Date Expiration Date Visits Re quested Visits Authorized [id number] Closed 01/11/2024 07/09/2024 1 1 LE INSPECTOR Reason for Visit * MRI/CAT/PET Scan (Routine) - Closed Specialty Diagnoses / Procedures Referred By Contac Referred To Contact Radiology Diagnoses LV dysfunction Abnormal nuclear stress test FELTON (dyspnea on exertion) Procedures CTA Heart and Coronary Arteries W Morphology when Performed Brown Mcdaniel MD [address] [place] [address] Phone: tel: fax: [address] [place] [address] Referral ID Status Reason Start Date Expiration Date Visits Re quested Visits Authorized [id number] Closed 01/11/2024 07/09/2024 1 1 Encounter Details Date Type Department Care Team (Latest Contact Info) Description 02/08/2024 11:32 AM CATTLE INSPECTOR - 02/08/2024 11:59 PM CATTLE INSPECTOR Hospital Encounter [facility] [address] [place] [address] LV dysfunction; Abnormal nuclear stress test; FELTON (dyspnea on exertion) Discharge Disposition: Discharge to home or self care Social History Tobacco Use Types Packs/Day Years Used Date Smoking Tobacco: Former Cigarettes 1 45 1 966 - 2010 Smokeless Tobacco: Never Alcohol Use Standard Drinks/Week Comments Not Currently 5 (1 standard drink = 0.6 oz pur e alcohol) Comments No Sex and Gender Information Value Date Recorded Sex Assigned at Not on file Legal Sex Female 8:43 AM CATTLE INSPECTOR Gender Identity Not on file Sexual Orientation Not on file documented as of this encounter Last Filed Vital Signs Vital Sign Reading Time Taken Comments Blood Pressure 124/60 02/08/2024 12:10 PM CATTLE INSPECTOR Pulse 61 02/08/2024 12:10 PM CATTLE INSPECTOR Temperature - - Respiratory Rate - - Oxygen Saturation - - Inhaled Oxygen Concentration - - Weight - - Height - - Body Mass Index - - documented in this encounter Discharge Instructions * Discharge Instructions* Kednra Ko RN - 02/08/2024 12:21 PM CATTLE INSPECTOR What is a CTA of the heart? CTA uses a CAT scan machine and an injection of contrast (radiology dye) into your blood vessels tohelp see blood vessel diseases or conditions such as abnormal blood vessels or blockages. You may have been given 0.8mg Nitroglycerin during the study today. A headache will be the most common side effect of Nitroglycerin administration. You should not experience any other side effects from these medications. You may take prescribed medication as normal. LE INSPECTOR documented in this encounter Medications at Time of Discharge ascorbic acid (VITAMIN C) 100 mg tablet Take 1 tablet (100 mg total) by mouth 2 (two) times a week aspirin 81 mg enteric coated tablet Take 1 tablet (81 mg total) by mouth daily 30 tablet 11/23/2023 11/22/2024 calcium carbonate (CALCIUM 500 ORAL) Take by mouth 2 (two) times a week cholecalciferol (VITAMIN D-3) 1,000 unit capsule Take 1 capsule (1,000 Units total) by mouth 2 (two) times a week fluticasone furoate-vilanter oL (BREO ELLIPTA) 100-25 mcg/dose diskus inhaler Inhale 1 puff daily Rinse mouth with water after use. Do not swallow. [id number] R-BI-opno-diet 29 125 mg-37.5 mg- 500 mcg-1.25mg capsule Take by mouth 2 (two) times a day meloxicam (MOBIC) 15 mg tablet 02/04/2021 metoprolol XL (TOPROL-XL) 25 mg extended release tablet Take 1 tablet (25 mg total) by mouth daily 30 tablet 11/23/2023 11/22/2024 multivitamin capsule Take 1 capsule by mouth 2 (two) times a week naproxen (ALEVE) 220 mg tablet Take 1 tablet (220 mg total) by mouth every 12 (twelve) hours as needed nystatin powder Apply to affected area with pouch changes 30 g 1 11/17/2017 omega 6-eht-nlg-fish oil 300-1,000 mg capsule Take 1 capsule by mouth 2 (two) times a week 05/17/2012 oxyBUTYnin XL (DITROPAN-XL) 10 mg 24 hr tablet Take 1 tablet (10 mg total) by mouth daily rosuvastatin (CRESTOR) 20 mg tablet Take 1 tablet (20 mg total) by mouth daily 30 tablet 11/23/2023 11/22/2024 sacubitriL-valsa rtan (ENTRESTO) 97-103 mg tabletIndication s:chronic heart failure Take 1 tablet by mouth 2 (two) times a day 60 tablet 01/11/2024 spironolactone (ALDACTONE) 25 mg tablet Take 1 tablet (25 mg total) by mouth daily 30 tablet 01/11/2024 01/10/2025 VENTOLIN HFA 90 mcg/actuation inhaler Inhale 2 puffs as needed 09/12/2017 vitamin B complex (B COMPLEX 1 ORAL) Take by mouth 2 (two) times a week vitamin E 400 unit capsule Take 1 capsule (400 Units total) by mouth 2 (two) times a week documented as of this encounter Discharge Disposition Disposition Code Departure Means Destination Discharge to home or self care documented in this encounter Miscellaneous Notes * Result Encounter Note - Talon Avelar RN - 02/08/2024 1:20 PM CATTLE INSPECTOR LM on VM to call back to discuss result note LE INSPECTOR documented in this encounter Plan of Treatment Not on file documented as of this encounter Procedures Procedure Name Priority Date/Time Associated Diagnosis Comments CT HEART MORPHOLOGY AND CORONARY ARTERIES W CONTRAST Schedule Routine, Read Routine (OP Routine) 02/08/2024 12:45 PM CATTLE INSPECTOR LV dysfunction Abnormal nuclear stress test FELTON (dyspnea on exertion) POCT CREATININE - DEVICE Routine 02/08/2024 12:21 PM CATTLE INSPECTOR documented in this encounter Results * CTA Heart and Coronary Arteries W Morphology when Performed (02/08/2024 12:45 PM CATTLE INSPECTOR) Anatomical Region Laterality Modality Chest N/A Computed Tomogra phy 02/08/2024 1:08 PM CATTLE INSPECTOR Impressions 02/08/2024 1:08 PM CATTLE INSPECTOR Severe coronary calcification with a calcium score [...] Justin Penny M.D. Narrative 02/08/2024 1:08 PM CATTLE INSPECTOR Examination: CT coronary angiogram with and without [...] by: Justin Penny M.D. Brown Mcdaniel MD IMG CT PROCEDURES Final Result * (ABNORMAL) POCT creatinine (02/08/2024 12:21 PM CATTLE INSPECTOR) Creatinine POC 0.5(L) 0.6 - 1.1 mg/dL Blood 02/08/2024 12:2 1 PM CATTLE INSPECTOR 02/08/2024 12:21 PM CATTLE INSPECTOR us Heron Ricci DO LAB POCT ORDERABLES - FOSTER CE Final Result Performing Organization Address City/State/[facility] Co me Phone Number [facility] Department [place] [address] documented in this encounter Visit Diagnoses Diagnosis LV dysfunction Left heart failure Abnormal nuclear stress test FELTON (dyspnea on exertion) Other dyspnea and respiratory abnormality documented in this encounter Administered Medications Inactive Administered Medications - up to 3 most recent administrations Medication Order MAR Action Action Date Dose Rate Site ioversoL (OPTIRAY 350) syringe 100 mL 100 mL, intravenous, Once in imaging, contrast, Starting on Tue02/08/24 at 1239, For 1 dose Contrast Given 02/08/2024 12:45 PM CATTLE INSPECTOR 93 mL nitroglycerin (NITROSTAT) sublingual tablet 0.8 mg 0.8 mg, sublingual, Once as needed, other, coronary artery vasodilation, Starting on Tue02/08/24 at 1209, For 1 hour, Administer during CT procedure only. Administer when blood pressure is greater than 100/60 and patient has not taken any vasodilator medication or has critical aortic stenosis. Given by Other 02/08/2024 12:37 PM CATTLE INSPECTOR 0.8 mg Other (Comment) documented in this encounter Care Teams Lead Systems Architect Relationship Specialty Start Date End Date Heron Ricci DO PCP - General 04/19/16 Talon Steele MD [phone] [place] [address] Surgeon Colon and Rectal Surgery 08/07/21 documented as of this encounter
--- OUTSIDE RECORDS SUMMARY | 2024-02-28 09:00 | XMS_ITS | Encounter Summary ---
Author Organization [facility] Healthcare Address [address] [place] [address] Care Team Providers Care Cigar Maker Name Role Phone Heron Ricci DO Primary Care Provider [phone]- [phone] Talon Steele MD Unavailable [phone] Reason for Referral * MRI/CAT/PET Scan (Routine) - Closed Specialty Diagnoses / Procedures Referred By Contac t Referred To Contact Radiology Diagnoses Abnormal computed tomography angiography (CTA) Coronary artery disease involving [place] heart, unspecified vessel or lesion type, unspecified whether angina present Shortness of breath LV dysfunction Abnormal findings on diagnostic imaging of heart and coronary circulation Procedures CT Coronary Fractional Flow [place] Brown Mcdaniel MD [address] [facility] [address] [place] [address] Phone: tel: fax: [address] [phone] Referral ID Status Reason Start Date Expiration Date Visits Re quested Visits Authorized [id number] Closed 02/08/2024 08/06/2024 1 1 EYOR OPERATOR Encounter Details Date Type Department Care Team (Late st Contact Info) Description 02/08/2024 Telephone [facility] Medical Group Cardiology [address] [place] [address] Brown Mcdaniel MD [address] [place] [address] [phone] (work) Social History Tobacco Use Types Packs/Day Years Used Date Smoking Tobacco: Former Cigarettes 1 45 1 966 - 2011 Smokeless Tobacco: Never Alcohol Use Standard Drinks/Week Comments Not Currently 5 (1 standard drink = 0.6 oz pur e alcohol) Comments No Sex and Gender Information Value Date Recorded Sex Assigned at Not on file Legal Sex Female 8:43 AM AIRVEYOR OPERATOR Gender Identity Not on file Sexual Orientation Not on file documented as of this encounter Miscellaneous Notes * Telephone Encounter - Talon Avelar RN - 02/08/2024 4:22 PM AIRVEYOR OPERATOR Images from the original note were not included. Spoke with pt. Pt agreeable with waiting to see results of FFR. She has not been experiencing any chest pain and has not had any worsening SOB. Pt verbalizes understanding. Brown Mcdaniel MD P [facility] Card Mryv Clinical Pool Let patient know that CT scan of the heart vessels showed calcification of the heart vessels and atleast moderate blockages. Additional testing has been ordered on the images to see if they are significant. Continue current medications. Further recommendations will follow after additional evaluation of the blockages is performed, however, if patient has ongoing symptoms of significant chest painor shortness of breath, then please schedule her for cardiac catheterization. EYOR OPERATOR * Telephone Encounter - Felecia Masterson - 02/08/2024 3:57 PM CST Patient returning call. Requesting a call back. Please advise. Thank you. Contact [phone] EYOR OPERATOR * Telephone Encounter - Mojgan Woo RN - 02/08/2024 2:52 PM AIRVEYOR OPERATOR Orders placed for FFR and auth requested. ----- Message from Brown Mcdaniel MD sent at 02/08/2024 2:29 PM AIRVEYOR OPERATOR ----- Regarding: RE: FFR post processing Team- please order CT-CORONARY FRACTIONAL FLOW RESERVE (FFR) for this patient. Thanks ----- Message ----- From: Jil Colon, RT Sent: 02/08/2024 1:15 PM AIRVEYOR OPERATOR To: Brown Mcdaniel MD Subject: FFR post processing Neeta Mcdaniel, This patient had a CCTA done today. On this examination, a coronary artery stenosis between 40-70% diameter has been reported. This qualifies the images to be sent for a supplemental Fractional Flow [place] (FFR) evaluation. This FFR image reconstruction and analysis requires an additional order to be placed in [facility], CT-CORONARY FRACTIONAL FLOW RESERVE (FFR) - SUPPLEMENTAL FOLLOWING CCTA [[id number]], and precerted. If you agree that these reconstructions are beneficial and needed, please place this additional order with [facility], or [facility] as the requested location and we will begin the process. No scheduling phone call is needed. Please note, these additional images will be billed and may result in an additional patient charge. The precertification process and FFR turnaround may take up to 1 week. Once the FFR is finalized, an addendum will be added to the CCTA report. If you have any questions, please let us know. Jil EYOR OPERATOR EYOR OPERATOR documented in this encounter Plan of Treatment Not on file documented as of this encounter Results * CT Coronary Fractional Flow [place] (02/09/2024 9:56 AM AIRVEYOR OPERATOR) Anatomical Region Laterality Modality Chest N/A Computed Tomogra phy 02/09/2024 10:5 7 AM AIRVEYOR OPERATOR Impressions 02/13/2024 9:43 AM AIRVEYOR OPERATOR ADDENDUM: Coronary CTA Fractional Flow [place] (FFR) The below FFR CT results are [...] 02/13/2024 IMPRESSION: ADDENDUM: Coronary CTA Fractional Flow [place] (FFR) The below FFR CT results are [...] Electronically signed by: Raul Calvillo M.D. Brown Mcdaniel MD IMG CT PROCEDURES Final Result documented in this encounter Visit Diagnoses Diagnosis Abnormal computed tomography angiography (CTA)- Primary Coronary artery disease involving [place] heart, unspecified vessel or lesion type, unspecified whether angina present Shortness of breath LV dysfunction Left heart failure Abnormal findings on diagnostic imaging of heart and coronary circulation Abnormal computed tomography angiography (CTA) Coronary artery disease involving [place] heart, unspecified vessel or lesion type, unspecified whether angina present Shortness of breath LV dysfunction Left heart failure Abnormal findings on diagnostic imaging of heart and coronary circulation documented in this encounter Care Teams Cigar Maker Relationship Specialty Start Date End Date Heron Ricci DO PCP - General 04/19/16 Talon Steele MD [facility] [phone] [place] [address] Surgeon Colon and Rectal Surgery 08/07/21 documented as of this encounter
--- OUTSIDE RECORDS SUMMARY | 2024-02-28 09:00 | XMS_ITS | Encounter Summary ---
Author Organization [facility] Healthcare Address [address] [place] [address] Care Team Providers Care Slot Operations Manager Name Role Phone Heron Ricci DO Primary Care Provider [phone] Talon Steele MD Unavailable [phone] Reason for Visit * Reason Onset Date Comments Hypertension 01/02/2024 Encounter Details Date Type Department Care Team (Late st Contact Info) Description 01/02/[address] [facility] Medical Group Cardiology [address] [place] [address] Brown Mcdaniel MD [address] [place] [id number] Hypertension Social History Tobacco Use Types Packs/Day Years Used Date Smoking Tobacco: Former Cigarettes 1 45 1 966 - 2010 Smokeless Tobacco: Never Alcohol Use Standard Drinks/Week Comments Not Currently 5 (1 standard drink = 0.6 oz pur e alcohol) Comments No Sex and Gender Information Value Date Recorded Sex Assigned at Not on file Legal Sex Female 8:43 AM HYGIENE ASSISTANT Gender Identity Not on file Sexual Orientation Not on file documented as of this encounter Miscellaneous Notes * Telephone Encounter - Mojgan Woo RN - 01/02/2024 10:29 AM HYGIENE ASSISTANT Spoke with pt, she has been taking her BP's at all different times of the day, some before meds andsome after. Today after her medications her BP was 168/87. Pt is going to cont to check her readings for the rest of the week and call me back Tuesday with an update. ENE ASSISTANT * Telephone Encounter - Felecia Masterson - 01/02/2024 9:27 AM CST Patient calling to report BP readings (Patient states that she has been following medication regimen and has not missed a dose). Requesting a call back to [facility]. 12/30 BP:171/74 12/31 BP: 192/84 01/01 BP: 171/91 Contact [phone] ENE ASSISTANT documented in this encounter Plan of Treatment Not on file documented as of this encounter Visit Diagnoses Not on filedocumented in this encounter Care Teams Slot Operations Manager Relationship Specialty Start Date End Date Heron Ricci DO PCP - General 04/19/16 Talon Steele MD [phone] [place] [address] Surgeon Colon and Rectal Surgery 08/07/21 documented as of this encounter
--- OUTSIDE RECORDS SUMMARY | 2024-02-28 09:00 | XMS_ITS | Encounter Summary ---
Author Organization [facility] Address [address] [place] [address] Care Team Providers Care Freelance Displayer Name Role Phone Heron Ricci DO Primary Care Provider Unavailable Encounter Details Date Type Department Care Team (Latest Contact Info) Description 12/06/2008 5:59 PM CDT - 12/06/2008 11:59 PM T Hospital Encounter [facility] Laboratory Support Services [address] [facility] [address] [place] [address] Anabela Muse MD NO ADDRESS ON FILE [...] on filedocumented in this encounter Care Teams Freelance Displayer Relationship Specialty Start Date End Date Heron Ricci DO PCP - General 12/04/0802/12 documented as of this encounter
--- OUTSIDE RECORDS SUMMARY | 2024-02-28 09:00 | XMS_ITS | Encounter Summary ---
Author Organization [facility] Healthcare Address [address] [place] [address] Care Team Providers Care System Developer Associate Manager Name Role Phone Heron Ricci DO Primary Care Provider [phone] Talon Steele MD Unavailable [phone] Reason for Visit * Diagnostic Imaging (Routine) - Closed Specialty Diagnoses / Procedures Referred By Contac t Referred To Contact Diagnoses LV dysfunction FELTON (dyspnea on exertion) Procedures NM MPI SPECT (Rest and/or Stress) Multiple Studies NC TC99M SESTAMIBI NC REGADENOSON INJECTION NC THERAPEUTIC PROPHYLACTIC/DX INJECTION SUBQ/IM Brown Kincaid MD [address] [address] Phone: tel: fax: [facility] Referral ID Status Reason Start Date Expiration Date Visits Re quested Visits Authorized [id number] Closed 11/23/2023 12/22/2024 1 1 Encounter Details Date Type Department Care Team (Latest Contact Info) Description 12/07/2023 7:45 AM CDT Ancillary Procedure [facility] Medical [facility] Cardiology [address] [facility] [address] [place] [address] LV dysfunction; FELTON (dyspnea on exertion) Social History Tobacco Use Types Packs/Day Years Used Date Smoking Tobacco: Former Cigarettes 1 45 1 966 - 2010 Smokeless Tobacco: Never Alcohol Use Standard Drinks/Week Comments Not Currently 5 (1 standard drink = 0.6 oz pur e alcohol) Comments No Sex and Gender Information Value Date Recorded Sex Assigned at Not on file Legal Sex Female 8:43 AM BUFFING LINE SET UP WORKER Gender Identity Not on file Sexual Orientation Not on file documented as of this encounter Plan of Treatment Not on file documented as of this encounter Procedures Procedure Name Priority Date/Time Associated Diagnosis Comments NM MPI SPECT (REST AND/OR STRESS) MULTIPLE STUDIES Schedule Routine, Read Routine (OP Routine) 12/07/2023 9:13 AM CDT LV dysfunction FELTON (dyspnea on exertion) documented in this encounter Results * NM MPI SPECT (Rest and/or Stress) Multiple Studies (12/07/2023 9:13 AM CDT) Anatomical Region Laterality Modality Body N/A Nuclear Medicine 12/07/2023 8:18 AM CDT Narrative 12/08/2023 7:07 AM CDT [facility] Cardiology [address] [facility] [address] [address] [address] [facility] [address], [place] [address] P:[phone] P:[phone] MPI Imaging Report Patient Name: ROXANA ANDERSEN S : 1950 Study Date: 12/07/2023 8:18:37 AM Gender: F Tech: [facility] Location: [facility] Provider: BROWN KINCAID ?Height(Cm): 157.5 BSA: ??Weight(Kg): 73.8 BMI: 29.75 ?Order Provider: BROWN KINCAID - PHYSICIAN: Referring Physician: Dr. Ricci. HCG Physician: Brown Kincaid M.D., F.A.CMandiC. Interpreting Physician: Ignacio Smiley M.D.,F.A.CMandiC. Stress Supervision: Brown Kincaid M.D., Jorge A.A.CMandiCMandi PROCEDURES: Myocardial perfusion imaging with Tc99M Sestamibi [...] MPI. Electronically Signed By: Brown Kincaid MD, [facility] 2023-12-07 15:42:14 CDT Electronically Signed By: Ignacio Smiley MD, [facility] 2023-12-08 07:06:13 CDT Procedure Note Ignacio Smiley MD - 12/08/2023 [facility] Cardiology [address] [facility] [address], [place] [address] [address] [facility] [address] [place] [address] P:[phone] P:[phone] MPI Imaging Report Patient Name: ROXANA ANDERSEN S : 1950 Study Date: 12/07/2023 8:18:37 AM Gender: F Tech: [facility] Location: [facility] Provider: BROWN KINCAID Height(Cm): 157.5 BSA: Weight(Kg): 73.8 BMI: 29.75 Order Provider: BROWN KINCAID - PHYSICIAN: Referring Physician: Dr. Ricci. HCG Physician: Brown Kincaid M.D.,JamiCCarlos Interpreting Physician: Ignacio Smiley M.D.,Roberto.CCarlos StressSupervision: Brown Kincaid M.D., Dana PROCEDURES: Myocardial perfusion [...] MPI. Electronically Signed By: Brown Kincaid MD, [facility] 2023-12-07 15:42:14 CDT Electronically Signed By: Ignacio Smiley MD, [facility] 2023-12-08 07:06:13 CDT us Brown Kincaid MD IMG NM PROCEDURES Final Result documented in this encounter Visit Diagnoses Diagnosis LV dysfunction Left heart failure FELTON (dyspnea on exertion) Other dyspnea and respiratory abnormality documented in this encounter Administered Medications Inactive Administered Medications - up to 3 most recent administrations Medication Order MAR Action Action Date Dose Rate Site regadenoson (LEXISCAN) 0.4 mg/5 mL injection 0.4 mg 0.4 mg, intravenous, Once, On Tue12/07/23 at 0945, For 1 dose, Administer IV push over 10 seconds., Indications: Myocardial Perfusion Imaging AdjunctIndications:Myocard ial Perfusion Imaging Adjunct Given 12/07/2023 9:13 AM CDT 0.4 mg tc-99m sestamibi unit dose injection 10.5 millicurie 10.5 millicurie, intravenous, Once in imaging, radiopharmaceutical, Starting on Tue12/07/23 at 0827, For 1 dose, Indications: Diagnostic RadiographyIndications:Shabnam gnostic Radiography Given 12/07/2023 8:27 AM CDT 10.5 millicuries tc-99m sestamibi unit dose injection 32.4 millicurie 32.4 millicurie, intravenous, Once in imaging, radiopharmaceutical, Starting on Tue12/07/23 at 0913, For 1 dose, Indications: Diagnostic RadiographyIndications:Shabnam gnostic Radiography Given 12/07/2023 9:14 AM CDT 32.4 millicuries documented in this encounter Care Teams System Developer Associate Manager Relationship Specialty Start Date End Date Heron Ricci DO PCP - General 04/19/16 Talon Steele MD [phone] [place] [address] Surgeon Colon and Rectal Surgery 08/07/21 documented as of this encounter
--- OUTSIDE RECORDS SUMMARY | 2024-02-28 09:00 | XMS_ITS | Encounter Summary ---
Author Organization [facility] Address [address] [place] [address] Care Team Providers Care Category Consultant Name Role Phone Heron Ricci DO Primary Care Provider Unavailable Encounter Details Date Type Department Care Team (Late st Contact Info) Description 12/04/2008 Abstract [facility] BREAST SURGERY - [place] [facility] [address] [place] [address] Vivian Aguilera MD [address] [place] [address] Social History Tobacco Use Types Packs/Day Years [...] on filedocumented in this encounter Care Teams Category Consultant Relationship Specialty Start Date End Date Heron Ricci DO PCP - General 12/04/0802/12 documented as of this encounter
--- OUTSIDE RECORDS SUMMARY | 2024-02-28 09:00 | XMS_ITS | Encounter Summary ---
Author Organization [facility] Healthcare Address [address] [place] [address] Care Team Providers Care Casey Saw Operator Name Role Phone Heron Ricci DO Primary Care Provider [phone] Talon Steele MD Unavailable [phone] Reason for Referral * MRI/CAT/PET Scan (Routine) - Closed Specialty Diagnoses / Procedures [facility] By [facility] Referred To Contact Radiology Diagnoses Abnormal computed tomography angiography (CTA) Coronary artery disease involving [place] heart, unspecified vessel or lesion type, unspecified whether angina present Shortness of breath LV dysfunction Abnormal findings on diagnostic imaging of heart and coronary circulation Procedures CT Coronary Fractional Flow [place] Brown Mcdaniel MD [address] [address] Phone: tel: fax: [address] [address] Referral ID Status Reason Start Date Expiration Date Visits Re quested Visits Authorized [id number] Closed 02/08/2024 08/06/2024 1 1 [facility] Reason for Visit * MRI/CAT/PET Scan (Routine) - Closed Specialty Diagnoses / Procedures Referred By [facility] Referred To Contact Radiology Diagnoses Abnormal computed tomography angiography (CTA) Coronary artery disease involving [place] heart, unspecified vessel or lesion type, unspecified whether angina present Shortness of breath LV dysfunction Abnormal findings on diagnostic imaging of heart and coronary circulation Procedures CT Coronary Fractional Flow [place] Brown Mcdaniel MD [address] [place] [address] Phone: tel: fax: [address] [address] Referral ID Status Reason Start Date Expiration Date Visits Re quested Visits Authorized [id number] Closed 02/08/2024 08/06/2024 1 1 Encounter Details Date Type Department Care Team (Latest Contact Info) Description 02/08/2024 3:20 PM MATTRESS FILLING MACHINE TENDER - 02/08/2024 11:59 PM MATTRESS FILLING MACHINE TENDER Hospital Encounter [facility] Radiology [facility] [address] [place] [id number] Abnormal computed tomography angiography (CTA); Coronary artery disease involving [place] heart, unspecified vessel or lesion type, unspecified whether angina present; Shortness of breath; LV dysfunction; Abnormal findings on diagnostic imaging of heart and coronary circulation Discharge Disposition: Discharge to home or self care Social History Tobacco Use Types Packs/Day Years Used Date Smoking Tobacco: Former Cigarettes 1 45 1 6 - 2010 Smokeless Tobacco: Never Alcohol Use Standard Drinks/Week Comments Not Currently 5 (1 standard drink = 0.6 oz pur e alcohol) Comments No Sex and Gender Information Value Date Recorded Sex Assigned at Not on file Legal Sex Female 8:43 AM MATTRESS FILLING MACHINE TENDER Gender Identity Not on file Sexual Orientation Not on file documented as of this encounter Medications at Time of Discharge ascorbic acid (VITAMIN C) 100 mg tablet Take 1 tablet (100 mg total) by mouth 2 (two) times a week aspirin 81 mg enteric coated tablet Take 1 tablet (81 mg total) by mouth daily 30 tablet 11 11/23/2023 11/22/2024 calcium carbonate (CALCIUM 500 ORAL) Take by mouth 2 (two) times a week cholecalciferol (VITAMIN D-3) 1,000 unit capsule Take 1 capsule (1,000 Units total) by mouth 2 (two) times a week fluticasone furoate-vilanter oL (BREO ELLIPTA) 100-25 mcg/dose diskus inhaler Inhale 1 puff daily Rinse mouth with water after use. Do not swallow. chwa-vvb-jmm K-OH-bzko-diet 29 125 mg-37.5 mg- 500 mcg-1.25mg capsule Take by mouth 2 (two) times a day meloxicam (MOBIC) 15 mg tablet 02/04/2021 metoprolol XL (TOPROL-XL) 25 mg extended release tablet Take 1 tablet (25 mg total) by mouth daily 30 tablet 11 11/23/2023 11/22/2024 multivitamin capsule Take 1 capsule by mouth 2 (two) times a week naproxen (ALEVE) 220 mg tablet Take 1 tablet (220 mg total) by mouth every 12 (twelve) hours as needed nystatin powder Apply to affected area with pouch changes 30 g 1 11/17/2017 omega 5-cui-xnz-fish oil 300-1,000 mg capsule Take 1 capsule [...] or self care documented in this encounter Plan of Treatment Not on file documented as of this encounter Procedures Procedure Name Priority Date/Time Associated Diagnosis Comments CT CORONARY FRACTIONAL FLOW RESERVE Schedule Routine, Read Routine (OP Routine) 02/09/2024 9:56 AM MATTRESS FILLING MACHINE TENDER Abnormal computed tomography angiography (CTA) Coronary artery disease involving [place] heart, unspecified vessel or lesion type, unspecified whether angina present Shortness of breath LV dysfunction Abnormal findings on diagnostic imaging of heart and coronary circulation documented in this encounter Results * CT Coronary Fractional Flow [place] (02/09/2024 9:56 AM MATTRESS FILLING MACHINE TENDER) Anatomical Region Laterality Modality Chest N/A Computed Tomogra phy 02/09/2024 10:5 7 AM MATTRESS FILLING MACHINE TENDER Impressions 02/13/2024 9:43 AM MATTRESS FILLING MACHINE TENDER ADDENDUM: Coronary CTA Fractional Flow [place] (FFR) The below FFR CT results are [...] 02/13/2024 IMPRESSION: ADDENDUM: Coronary CTA Fractional Flow [place] (FFR) The below FFR CT results are [...] Visit Diagnoses Diagnosis Abnormal computed tomography angiography (CTA) Coronary artery disease involving [place] heart, unspecified vessel or lesion type, unspecified whether angina present Shortness of breath LV dysfunction Left heart failure Abnormal findings on diagnostic imaging of heart and coronary circulation documented in this encounter Care Teams Casey Saw Operator Relationship Specialty Start Date End Date Heron Ricci DO PCP - General 04/19/16 Talon Steele MD [phone] [place] [address] Surgeon Colon and Rectal Surgery 08/07/21 documented as of this encounter
--- OUTSIDE RECORDS SUMMARY | 2024-02-28 09:01 | XMS_ITS | Encounter Summary ---
Author Organization [facility] Address [address] [place] [address] Phone Care Team Providers Care Diversional Therapist Name Role Phone Heron Ricci DO Primary Care Provider [phone] Talon Steele MD Unavailable [phone] Reason for Visit * Reason Onset Date Comments Test Results 05/06/2022 Encounter Details Date Type Department Care Team (Late st Contact Info) Description 05/06/2022 Telephone [facility] Surgery [address] [facility] [address] [place] [address] Jazzmine Hernandez RMA Test Results Social History Tobacco Use Types Packs/Day Years Used Date Smoking Tobacco: Former Cigarettes 1 45 1 966 - 2010 Smokeless Tobacco: Never Alcohol Use Standard Drinks/Week Comments Not Currently 5 (1 standard drink = 0.6 oz pur e alcohol) Comments No Sex and Gender Information Value Date Recorded Sex Assigned at Not on file Legal Sex Female 8:43 AM RIFFLER TENDER Gender Identity Not on file Sexual Orientation Not on file documented as of this encounter Miscellaneous Notes * Telephone Encounter - Jazzmine Hernandez RMA - 05/06/2022 3:49 PM RIFFLER TENDER Spoke to patient about CT results. Will see her back in 6 months for follow up. LER TENDER * Telephone Encounter - Jazzmine Hernandez RMA - 05/06/2022 3:49 PM RIFFLER TENDER ----- Message from Talon Steele MD sent at 05/04/2022 3:34 PM RIFFLER TENDER ----- Can you let her know her CT looks good. LER TENDER documented in this encounter Plan of Treatment Not on file documented as of this encounter Visit Diagnoses Not on filedocumented in this encounter Care Teams Diversional Therapist Relationship Specialty Start Date End Date Heron Ricci DO PCP - General 04/19/16 Talon Steele MD [phone] [place] [address] Surgeon Colon and Rectal Surgery 08/07/21 documented as of this encounter
--- OUTSIDE RECORDS SUMMARY | 2024-02-28 09:01 | XMS_ITS | Encounter Summary ---
Author Organization [facility] Address [address] [facility] [address] [place] [address] Phone Care Team Providers Care Police Patrol Officer Name Role Phone Heron Ricci DO Primary Care Provider [phone] Talon Steele MD Unavailable Reason for Visit * Reason Comments Anal Cancer * Consultation (Routine) - Closed Specialty Diagnoses / Procedures Referred By Contac t Referred To Contact Surgery / Colon and Rectal Surgery Diagnoses History of anal cancer Heron Ricci DO Phone: tel: fax: Talon Steele MD [address] [facility] [phone] [place] [address] Phone: tel: fax: Referral ID Status Reason Start Date Expiration Date V isits Requested Visits Authorized [id number] Closed Specialty Services Required 08/05/2021 09/04/2022 99 99 Encounter Details Date Type Department Care Team (Late st Contact Info) Description 09/29/2021 9:45 AM CDT Office Visit [facility] [address] [place] [address] Talon Steele MD [address] [facility] [phone] [place] [address] (CMS/HCC) (HCC) (Primary Dx); History of anal cancer Social History Tobacco Use Types Packs/Day Years Used Date Smoking Tobacco: Former Cigarettes 1 45 1 966 - 2010 Smokeless Tobacco: Never Alcohol Use Standard Drinks/Week Comments Not Currently 5 (1 standard drink = 0.6 oz pur e alcohol) Comments No Sex and Gender Information Value Date Recorded Sex Assigned at Not on file Legal Sex Female 8:43 AM SENIOR ORACLE APPLICATIONS DEVELOPER Gender Identity Not on file Sexual Orientation Not on file documented as of this encounter Last Filed Vital Signs Vital Sign Reading Time Taken Comments Blood Pressure 152/87 09/29/2021 9:27 AM CDT Pulse 63 09/29/2021 9:27 AM CDT Temperature 36.7 ??C (98 ??F) 09/29/2021 9:27 AM CDT Respiratory Rate 18 09/29/2021 9:27 AM CDT Oxygen Saturation 98% 09/29/2021 9:27 AM CDT Inhaled Oxygen Concentration - - Weight 77.8 kg (171 lb 9.6 oz) 09/29/2021 9:27 A M CDT Height - - Body Mass Index 31.38 11/24/2017 2:09 PM CDT documented in this encounter Progress Notes * Sadia Ramirez MD - 09/29/2021 9:45 AM CDT Colorectal Surgery Clinic Visit Chief Complaint: Roxana Andersen is a 71 y.o. female with chief complaint of Anal Cancer HPI: Roxana Andersen is a 71 y.o. female who is 4 years s/p APR with posterior vaginectomy and VRAM reconstruction for persistent anal squamous cell carcinoma. She has no concerns today. Good stoma output, no issues with pouching. No urinary symptoms. Is using diaper cream on her perineal incision when it becomes dry because lotion was causing urinary tract infections. Feels well. No imaging to review today. Past Medical History: Diagnosis Date ??? Anal cancer (CMS/HCC) (HCC) tx. with chemo & radiation ??? 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 COPD (chronic obstructive pulmonary disease) (CMS/HCC) (HCC) ??? History of anal cancer 11/01/2017 ??? Hypertension ??? Nonruptured cerebral aneurysm Cerebral arterial aneurysm - (Added by TW Conv) ??? Personal history of other diseases of the digestive system History of esophageal reflux - (Added by TW Conv) ??? Personal history of other infectious and parasitic diseases History of mumps - (Added by TW Conv) Past Surgical History: Procedure Laterality Date ??? ABDOMINOPERINEAL PROCTOCOLECTOMY 10/17/2017 1. Abdominoperineal resection with posterior vaginectomy. 2. A rectus abdominis flap reconstructionof pelvic floor. ??? BREAST BIOPSY Biopsy Breast Open - (Added by TW Conv) ??? BREAST SURGERY Breast Surgery Enlargement Procedure Bilateral - (Added by TW Conv) ??? EXAMINATION UNDER ANESTHESIA 12/23/2016 EUA with biopsy ??? EXAMINATION UNDER ANESTHESIA 08/26/2017 with anal biopsy ??? EXPLORATORY LAPAROTOMY ??? INTRACRANIAL ANEURYSM REPAIR coiling 2005 ??? MASTOPEXY ??? RECTAL BIOPSY ??? TUBAL LIGATION HOME MEDICATIONS : acetaminophen (TYLENOL) 500 mg tablet ascorbic acid (VITAMIN C) 100 mg tablet aspirin 81 mg chewable tablet budesonide-formoteroL (SYMBICORT) 80-4.5 mcg/actuation inhaler calcium carbonate (CALCIUM 500 ORAL) cholecalciferol (VITAMIN D-3) 1,000 unit capsule coenzyme Q10 10 mg capsule kwim-nrp-gjy A-KL-cxmj-diet 29 125 mg-37.5 mg- 500 mcg-1.25mg capsule hydroCHLOROthiazide (HYDRODIURIL) 25 mg tablet losartan (COZAAR) 100 mg tablet meloxicam (MOBIC) 15 mg tablet multivitamin capsule naproxen (ALEVE) 220 mg tablet nystatin powder omega 9-xqa-bbz-fish oil 300-1,000 mg capsule VENTOLIN HFA 90 mcg/actuation inhaler vitamin B complex (B COMPLEX 1 ORAL) vitamin E 400 unit capsule amLODIPine (NORVASC) 10 mg tablet bacitracin-polymyxin B (POLYSPORIN) ointment oxyCODONE (ROXICODONE) 5 mg immediate release tablet Allergies Allergen Reactions ??? Sulfa (Sulfonamide Antibiotics) Anaphylaxis ??? Codeine Nausea only and Nausea And Vomiting Reaction: NAUSEA, Social History Tobacco Use ??? Smoking status: Former Smoker Packs/day: 1.00 Types: Cigarettes Start date: 1965 Quit date: 2010 Years since quittin.5 ??? Smokeless tobacco: Never Used Substance and Sexual Activity ??? Drug use: No ??? Sexual activity: None Alcohol Use: Not on file Family History Problem Relation Age of Onset ??? Heart disease Father Heart Disease - (Added by TW Conv) ??? Diabetes Other Diabetes Mellitus - (Added by TW Conv) ??? Cancer Other Cancer - (Added by TW Conv) ??? Breast cancer Mother Breast Cancer - (Added by TW Conv) ??? Colon polyps Mother ??? Bladder Cancer Brother Family history of bladder cancer - (Added by TW Conv) Review of Systems: All systems are negative except as per HPI and scanned media. Vitals: Vitals BP 152/87 Pulse 63 Temp 36.7 ??C (98 ??F) (Temporal) Resp 18 Wt 77.8 kg (171 lb 9.6 oz) SpO2 98% BMI 31.38 kg/m?? Physical exam: GENERAL EXAM Appearance - well developed, well nourished Orientation - alert and oriented x 3 Eyes - anicteric Ears, mouth and nose: Normal Neurologic: Non-focal motor function Pulmonary: Non-labored breathing, no audible wheezing Integumentary: No rashes Musculoskeletal: No gross bony deformities Abdomen -- Soft nontender, nondistended, no masses. No inguinal lymphadenopathy. Perineal - somewhat bulky skin paddle that is well healed with no wounds or drainage. Assessment: Roxana Andersen is a 71 y.o. female 4 years postop from APR/post vaginectomy and VRAM for persistentanal SCC. Plan: RTC 6 mo for surveillance with CT c/a/p Sadia Ramirez MD 09/29/2021 9:50 AM Cosigned by Talon Steele MD at 09/29/2021 10:10 AM CDT Associated attestation - Talon Steele MD - 09/29/2021 10:10 AM CDT I have seen and examined the patient. I agree with the findings and plan of care as documented in the resident/fellow's note. documented in this encounter Plan of Treatment Not on file documented as of this encounter Visit Diagnoses Diagnosis Colostomy in place (CMS/HCC) (HCC)- Primary Colostomy status History of anal cancer documented in this encounter Discontinued Medications Medication Sig Discontinue Reason Start Date End Da te amLODIPine (NORVASC) 10 mg tabletIndications:hyper tension Take 10 mg by mouth daily Therapy completed 09/29/2021 bacitracin-polymyxin B (POLYSPORIN) ointmentIndications:Min or Bacterial Skin Infections Apply topically 2 (two) times a day. Therapy completed 10/21/2017 09/29/2021 oxyCODONE (ROXICODONE) 5 mg immediate release tabletIndications:Pain Take 1 tablet (5 mg total) by mouth every 4 (four) hours as needed for pain. Therapy completed 10/21/2017 09/29/2021 documented as of this encounter Orders Outpatient Referral Count Last Ordered Date Fir st Ordered Date AMB REFERRAL TO COLORECTAL SURGERY 1 2021 documented in this encounter Care Teams Police Patrol Officer Relationship Specialty Start Date End Date Heron Ricci DO PCP - General 04/19/16 Talon Steele MD [address] [facility] [phone] [place] [address] Surgeon Colon and Rectal Surgery 08/07/21 documented as of this encounter
--- OUTSIDE RECORDS SUMMARY | 2024-02-28 09:01 | XMS_ITS | Encounter Summary ---
Author Organization [facility] Address [address] [facility] [address] [place] [address] Phone Care Team Providers Care Sql Server Architect Name Role Phone Heron Ricci DO Primary Care Provider [phone] Talon Steele MD Unavailable Reason for Visit * Reason Comments Anal Cancer * Consultation (Routine) - Closed Specialty Diagnoses / Procedures Referred By Contac t Referred To Contact Surgery / Colon and Rectal Surgery Diagnoses History of anal cancer Heron Ricci DO Phone: tel: fax: Talon Steele MD [address] [facility] [phone] [place] [address] Phone: tel: fax: Referral ID Status Reason Start Date Expiration Date V isits Requested Visits Authorized [id number] Closed Specialty Services Required 08/05/2021 09/04/2022 99 99 Encounter Details Date Type Department Care Team (Late st Contact Info) Description 05/04/2022 8:45 AM PHYSICIAN GYNECOLOGIST Office Visit [facility] Surgery [address] [place] [address] Talon Steele MD [address] [facility] [phone] [place] [address] History of anal cancer (Primary Dx); Colostomy care ([facility]/HCC) (HCC) Social History Tobacco Use Types Packs/Day Years Used Date Smoking Tobacco: Former Cigarettes 1 45 1 966 - 2010 Smokeless Tobacco: Never Alcohol Use Standard Drinks/Week Comments Not Currently 5 (1 standard drink = 0.6 oz pur e alcohol) Comments No Sex and Gender Information Value Date Recorded Sex Assigned at Not on file Legal Sex Female 8:43 AM PHYSICIAN GYNECOLOGIST Gender Identity Not on file Sexual Orientation Not on file documented as of this encounter Last Filed Vital Signs Vital Sign Reading Time Taken Comments Blood Pressure 133/64 05/04/2022 8:26 AM PHYSICIAN GYNECOLOGIST Pulse 77 05/04/2022 8:26 AM PHYSICIAN GYNECOLOGIST Temperature 36.6 ??C (97.9 ??F) 05/04/2022 8:26 AM CS T Respiratory Rate 16 05/04/2022 8:26 AM PHYSICIAN GYNECOLOGIST Oxygen Saturation - - Inhaled Oxygen Concentration - - Weight 76.7 kg (169 lb 3.2 oz) 05/04/2022 8:26 A M PHYSICIAN GYNECOLOGIST Height - - Body Mass Index 30.94 11/24/2017 2:09 PM CDT documented in this encounter Progress Notes * Talon Steele MD - 05/04/2022 8:45 AM CST Colorectal Surgery Clinic Visit Chief Complaint: Roxana Andersen is a 72 y.o. female with chief complaint of Anal Cancer HPI: 72-year-old woman is 4 and half years status post abdominal peroneal resection for anal cancer. She is managing her stoma without any difficulty. She is not having any abdominal pain nausea vomiting or pain in her perineum. She has developed right arm weakness and is being worked up and there was some concern that this may represent ALS. Past Medical History: Diagnosis Date Anal cancer (CMS/HCC) (HCC) tx. 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 COPD (chronic obstructive pulmonary disease) (CMS/HCC) ([facility]) History of anal cancer 11/01/2017 Hypertension Nonruptured [...] unit capsule coenzyme Q10 10 mg capsule qndx-txy-qck D-AG-vewi-diet 29 125 mg-37.5 mg- 500 mcg-1.25mg capsule hydroCHLOROthiazide (HYDRODIURIL) 25 mg tablet losartan (COZAAR) 100 mg tablet meloxicam (MOBIC) 15 mg tablet multivitamin capsule naproxen (ALEVE) 220 mg tablet nystatin powder omega 0-clv-cfa-fish oil 300-1,000 mg capsule VENTOLIN HFA 90 mcg/actuation inhaler vitamin B complex (B COMPLEX 1 ORAL) vitamin E 400 unit capsule Allergies Allergen Reactions Sulfa (Sulfonamide Antibiotics) Anaphylaxis Codeine Nausea only and Nausea And Vomiting Reaction: NAUSEA, Social History Tobacco Use Smoking status: Former Packs/day: 1.00 Types: Cigarettes Start date: 1965 Quit date: 2010 Years since quittin.1 Smokeless tobacco: Never Substance and Sexual Activity [...] HPI and scanned media. Vitals: Vitals BP 133/64 (BP Location: Left arm) Pulse 77 Temp 36.6 ??C (97.9 ??F) (Temporal) Resp 16 Wt 76.7 kg (169 lb 3.2 oz) BMI 30.94 kg/m?? Physical exam: GENERAL EXAM Appearance - [...] lower quadrant colostomy is pink viable and functioning Assessment: Roxana Andersen is a 72 y.o. female with history of anal cancer Plan: She is scheduled for a CT scan of the chest abdomen pelvis today I will review once it is completed. Return to clinic in 6 months Talon Steele MD 05/04/2022 8:37 AM ICIAN GYNECOLOGIST documented in this encounter Plan of Treatment Not on file documented as of this encounter Visit Diagnoses Diagnosis History of anal cancer- Primary Colostomy care (HCC) Attention to colostomy documented in this encounter Care Teams Sql Server Architect Relationship Specialty Start Date End Date Heron Ricci DO PCP - General 04/19/16 Talon Steele MD [address] [facility] [phone] [place] [address] Surgeon Colon and Rectal Surgery 08/07/21 documented as of this encounter
--- OUTSIDE RECORDS SUMMARY | 2024-02-28 09:01 | XMS_ITS | Encounter Summary ---
Author Organization [facility] Address [address] [place] [address] Care Team Providers Care General Passenger Agent Name Role Phone Heron Ricci DO Primary Care Provider [phone]- [phone] Talon Steele MD Unavailable [phone] Reason for Referral * MRI/CAT/PET Scan (Routine) - Closed Specialty Diagnoses / Procedures Referred By Contac t Referred To Contact Radiology Diagnoses History of anal cancer Procedures CT Chest Abdomen Pelvis W Contrast Talon Steele MD [address] [facility] [phone] [place] [address] Phone: tel: fax: [facility] Referral ID Status Reason Start Date Expiration Date Visits Re quested Visits Authorized [id number] Closed 04/26/2022 10/23/2022 1 1 K SEXER Reason for Visit * MRI/CAT/PET Scan (Routine) - Closed Specialty Diagnoses / Procedures Referred By Contac t Referred To Contact Radiology Diagnoses History of anal cancer Procedures CT Chest Abdomen Pelvis W Contrast Talon Steele MD [address] [facility] [phone] [place] [address] Phone: tel: fax: [facility] Referral ID Status Reason Start Date Expiration Date Visits Re quested Visits Authorized [id number] Closed 04/26/2022 10/23/2022 1 1 Encounter Details Date Type Department Care Team (Latest Contact Info) Description 05/04/2022 9:08 AM CHICK SEXER - 05/04/2022 11:59 PM CHICK SEXER Hospital Encounter [facility] Radiology at [facility] [address] [place] [address] History of anal cancer Discharge Disposition: Discharge to home or self [...] on file Legal Sex Female 8:43 AM CHICK SEXER Gender Identity Not on file Sexual Orientation [...] by mouth 2 (two) times a week uniq-wab-fir Q-RC-ndxw-diet 29 125 mg-37.5 mg- 500 mcg-1.25mg capsule Take by mouth 2 (two) times a day meloxicam (MOBIC) 15 mg tablet 02/04/2021 multivitamin capsule Take 1 capsule by mouth 2 (two) times a week naproxen (ALEVE) 220 mg tablet Take 1 tablet (220 mg total) by mouth every 12 (twelve) hours as needed nystatin powder Apply to affected area with pouch changes 30 g 1 11/17/2017 omega 0-mvy-fdz-fish oil 300-1,000 mg capsule Take 1 capsule by mouth 2 (two) times a week 05/17/2012 VENTOLIN HFA 90 mcg/actuation inhaler Inhale 2 puffs as needed 09/12/2017 vitamin B complex (B COMPLEX 1 ORAL) Take by mouth 2 (two) times a week vitamin E 400 unit capsule Take 1 capsule (400 Units total) by mouth 2 (two) times a week acetaminophen (TYLENOL) 500 mg tabletIndication s:Pain Take 1 tablet (500 mg total) by mouth every 6 (six) hours as needed 01/11/2024 aspirin 81 mg chewable tabletIndication s:prevention of thrombosis Take 1 tablet (81 mg total) by mouth every morning 11/23/2023 budesonide-formo teroL (SYMBICORT) 80-4.5 mcg/actuation inhalerIndicatio ns:Bronchospasm Prevention with COPD Inhale 2 puffs 2 (two) times a day as needed 01/11/2024 coenzyme Q10 10 mg capsule Take 1 capsule (10 mg total) by mouth 2 (two) times a week 01/11/2024 hydroCHLOROthiaz dave (HYDRODIURIL) 25 mg tabletIndication s:hypertension Take 1 tablet (25 mg total) by mouth as needed 07/27/2017 01/11/2024 losartan (COZAAR) 100 mg tabletIndication s:hypertension Take 1 tablet (100 mg total) by mouth every morning 11/23/2023 documented as of this encounter Discharge Disposition Disposition Code Departure Means Destination Discharge to home or self care documented in this encounter Plan of Treatment Not on file documented as of this encounter Procedures Procedure Name Priority Date/Time Associated Diagnosis Comments CT CHEST ABDOMEN PELVIS W CONTRAST Schedule Routine, Read Routine (OP Routine) 05/04/2022 9:41 AM CHICK SEXER History of anal cancer POCT CREATININE - DEVICE Routine 05/04/2022 9:24 AM CHICK SEXER documented in this encounter Results * CT Chest Abdomen Pelvis W Contrast (05/04/2022 9:41 AM CHICK SEXER) Anatomical Region Laterality Modality Body N/A Computed Tomogra phy 05/04/2022 9:54 AM CHICK SEXER Impressions 05/04/2022 9:54 AM CHICK SEXER 1. ??New region of consolidation left lung base likely infectious or inflammatory. 2. ??Otherwise no evidence of metastatic disease to the chest abdomen or pelvis. Electronically signed by: Analy Moore 05/04/2022 9:54 AM CHICK SEXER EXAMINATION: ??Computed tomography of the chest, abdomen and pelvis with intravenous contrast HISTORY: Anal cancer restaging TECHNIQUE: ??Transaxial computed tomographic images of the chest, abdomen and pelvis were obtained with intravenous contrast according to the standard protocol after the uneventful administration of 77 mL Opti-Ray 350 intravenous contrast. COMPARISON: Computed tomography examination of the chest abdomen and pelvis 02/17/2021 FINDINGS: ?? Chest: Stable scarring noted within both lung apices. ??There is a new focal region of consolidation within the left lung base. ??There is no pleural effusion. ??There is persistent mild elevation the right hemidiaphragm. ??The heart size is normal. ??Coronary artery calcifications noted. ??Bilateral breast implants noted. ??Stable 9.1 mm nodule noted anterior to the right breast implant on table position 12. Abdomen/Pelvis: There is mild hepatic steatosis. ??The gallbladder, pancreas, spleen, both adrenal glands, and both kidneys appear normal. Bowel gas pattern is normal. ??The abdominal aorta and branch vessels are atherosclerotic. Surgical changes noted compatible with abdominal perineal resection with left lower quadrant end colostomy. ??The uterus and adnexa and urinary bladder appear normal. Images obtained with bone window settings demonstrate multilevel degenerative changes throughout the spine. ??There are no suspicious osseous abnormalities. Procedure Note José Miguel Ortiz MD - 05/04/2022 EXAMINATION: Computed tomography of the chest, abdomen and pelvis with intravenous contrast HISTORY: Anal cancer restaging TECHNIQUE: Transaxial computed tomographic images of the chest, abdomen and pelvis were obtained with intravenous contrast according to the standard protocol after the uneventful administration of 77 mL Opti-Ray 350 intravenous contrast. COMPARISON: Computed tomography examination of the chest abdomen and pelvis 02/17/2021 FINDINGS: Chest: Stable scarring noted within both lung apices. There is a new focal region of consolidation within the left lung base. There is no pleural effusion. There is persistent mild elevation the right hemidiaphragm. The heart size is normal. Coronary artery calcifications noted. Bilateral breast implants noted. Stable 9.1 mm nodule noted anterior to the right breast implant on table position 12. Abdomen/Pelvis: There is mild hepatic steatosis. The gallbladder, pancreas, spleen, both adrenal glands, and both kidneys appear normal. Bowel gas pattern is normal. The abdominal aorta and branch vessels are atherosclerotic. Surgical changes noted compatible with abdominal perineal resection with left lower quadrant end colostomy. The uterus and adnexa and urinary bladder appear normal. Images obtained with bone window settings demonstrate multilevel degenerative changes throughout the spine. There are no suspicious osseous abnormalities. IMPRESSION: 1. New region of consolidation left lung base likely infectious or inflammatory. 2. Otherwise no evidence of metastatic disease to the chest abdomen or pelvis. Electronically signed by: José Miguel Ortiz M.D. Talon Steele MD IMG CT PROCEDURES Final Resu lt * (ABNORMAL) POCT creatinine (05/04/2022 9:24 AM CHICK SEXER) Creatinine POC 0.5(L) 0.6 - 1.1 mg/dL [facility] Blood 05/04/2022 9:24 AM CHICK SEXER 05/04/2022 9:24 AM CHICK SEXER Talon Steele MD LAB POCT ORDERABLES - DEVICE Final Result [facility] Department [place] [address] documented in this encounter Visit Diagnoses Diagnosis History of anal cancer documented in this encounter Administered Medications Inactive Administered Medications - up to 3 most recent administrations Medication Order MAR Action Action Date Dose Rate Site ioversoL (OPTIRAY 350) syringe 77 mL 77 mL, intravenous, Once in imaging, contrast, Starting on Tue05/04/22 at 0943, For 1 dose Contrast Given 05/04/2022 9:44 AM CHICK SEXER 77 mL documented in this encounter Orders Medications Ordered That Omari ht Not Have Been Administered Count Last Ordered Date First Ordered Date ioversoL (OPTIRAY 350) syringe 77 mL 1 08/2022 documented in this encounter Care Teams General Passenger Agent Relationship Specialty Start Date End Date Heron Ricci DO PCP - General 04/19/16 Talon Steele MD [address] [facility] [phone] [place] [address] Surgeon Colon and Rectal Surgery 08/07/21 documented as of this encounter
--- OUTSIDE RECORDS SUMMARY | 2024-02-28 09:01 | XMS_ITS | Encounter Summary ---
Author Organization [facility] Healthcare Address [address] [place] [address] Care Team Providers Care Boiler House Operator Name Role Phone Heron Ricci DO Primary Care Provider [phone] Ignacio Canela MD Unavailable Reason for Referral * MRI/CAT/PET Scan (Routine) - Closed Specialty Diagnoses / Procedures Referred By Contac t Referred To Contact Radiology Diagnoses History of anal cancer Procedures CT Chest Abdomen Pelvis W Contrast Talon Steele MD [id number] [place] [address] Phone: tel: fax: [facility] Referral ID Status Reason Start Date Expiration Date Visits Re quested Visits Authorized [id number] Closed 02/07/2021 08/06/2021 1 1 LOPE CUTTER Reason for Visit * MRI/CAT/PET Scan (Routine) - Closed Specialty Diagnoses / Procedures Referred By Contlaya t Referred To Contact Radiology Diagnoses History of anal cancer Procedures CT Chest Abdomen Pelvis W Contrast Talon Steele MD [id number] [place] [address] Phone: tel: fax: [facility] Referral ID Status Reason Start Date Expiration Date Visits Re quested Visits Authorized [id number] Closed 02/07/2021 08/06/2021 1 1 Encounter Details Date Type Department Care Team (Latest Contact Info) Description 02/17/2021 7:46 AM ENVELOPE CUTTER - 02/17/2021 11:59 PM ENVELOPE CUTTER Hospital Encounter [facility] at [facility] [address] [place] [address] Talon Steele MD [id number] [place] [address] History of anal cancer Discharge Disposition: Discharge [...] on file Legal Sex Female 8:43 AM ENVELOPE CUTTER Gender Identity Not on file Sexual Orientation [...] by mouth 2 (two) times a week nzrp-mov-axb H-TF-nndd-diet 29 125 mg-37.5 mg- 500 mcg-1.25mg capsule [...] pouch changes 30 g 1 11/17/2017 omega 3-tpv-rtw-fish oil 300-1,000 mg capsule Take 1 capsule [...] mouth every 6 (six) hours as needed 4 amLODIPine (NORVASC) 10 mg tabletIndication s:hypertension Take 10 mg by mouth daily 2 aspirin 81 mg chewable tabletIndication s:prevention of thrombosis Take 1 tablet (81 mg total) by mouth every morning 4 bacitracin-polym yxin B (POLYSPORIN) ointmentIndicati ons:Minor Bacterial Skin Infections Apply topically 2 (two) times a day. 28 g 10/21/2017 2 budesonide-formo teroL (SYMBICORT) 80-4.5 mcg/actuation inhalerIndicatio ns:Bronchospasm Prevention with COPD Inhale 2 puffs 2 (two) times a day as needed 4 coenzyme Q10 10 mg capsule Take 1 capsule (10 mg total) by mouth 2 (two) times a week 4 hydroCHLOROthiaz dave (HYDRODIURIL) 25 mg tabletIndication s:hypertension Take 1 tablet (25 mg total) by mouth as needed 07/27/2017 4 losartan (COZAAR) 100 mg tabletIndication s:hypertension Take 1 tablet (100 mg total) by mouth every morning 4 oxyCODONE (ROXICODONE) 5 mg immediate release tabletIndication s:Pain Take 1 tablet (5 mg total) by mouth every 4 (four) hours as needed for pain. 60 tablet 10/21/2017 2 documented as of this encounter Discharge Disposition Disposition Code Departure Means Destination Discharge to home or self care documented in this encounter Plan of Treatment Not on file documented as of this encounter Procedures Procedure Name Priority Date/Time Associated Diagnosis Comments CT CHEST ABDOMEN PELVIS W CONTRAST Schedule Routine, Read Routine (OP Routine) 02/17/2021 8:18 AM ENVELOPE CUTTER History of anal cancer POCT CREATININE - DEVICE Routine 02/17/2021 8:05 AM ENVELOPE CUTTER documented in this encounter Results * CT Chest Abdomen Pelvis W Contrast (02/17/2021 8:18 AM ENVELOPE CUTTER) Anatomical Region Laterality Modality Body N/A Computed Tomogra phy 02/17/2021 9:18 AM ENVELOPE CUTTER Impressions 02/17/2021 9:18 AM ENVELOPE CUTTER 1. No progressive disease identified in the chest abdomen or pelvis. Electronically signed by: Moshe Calhoun M.D. Narrative 02/17/2021 9:18 AM ENVELOPE CUTTER EXAMINATION: ??Computed tomography of the chest, abdomen and pelvis with intravenous contrast HISTORY: Anal cancer restaging TECHNIQUE: ??Transaxial computed tomographic images of the chest, abdomen and pelvis were obtained with intravenous contrast according to the standard protocol after the uneventful administration of 95 mL Opti-Ray 350 intravenous contrast. COMPARISON: 10/31/2019 FINDINGS: ?? Mild emphysema and scarring noted predominantly in the lung apices. Scarring noted in the anterior lungs bilaterally. 3 mm left lower lobe pulmonary nodule on image 95 is stable. A pleural nodule in the left lower lobe on image 106 measuring 3 mm is also stable. Pleural effusion pneumothorax or consolidation. There are bilateral breast implants. There is no axillary supraclavicular mediastinal or hilar lymphadenopathy. Size mildly enlarged without pericardial effusion. The thoracic aorta is normal in caliber. No focal liver lesion or biliary duct dilatation identified. The gallbladder is nondistended. The adrenal glands pancreas and spleen are normal in appearance. No hydronephrosis or suspicious renal lesion. The abdominal aorta is atherosclerotic but nonaneurysmal. There is no retroperitoneal mesenteric pelvic or inguinal lymphadenopathy. Surgical changes from abdominoperineal resection and and descending colostomy are present with fat-containing flap at the pelvic floor. No intestinal obstruction or focal bowel wall thickening. No peritoneal or omental nodularity. The uterus contains several small fibroids. Normal ovaries. Normal appendix. Bone windows demonstrate no osseous metastatic disease or fracture. There is grade 1 anterolisthesis of L3 on L4. Procedure Note Moshe Calhoun MD - 02/17/2021 EXAMINATION: Computed tomography of the chest, abdomen and pelvis with intravenous contrast HISTORY: Anal cancer restaging TECHNIQUE: Transaxial computed tomographic images of the chest, abdomen and pelvis were obtained with intravenous contrast according to the standard protocol after the uneventful administration of 95 mL Opti-Ray 350 intravenous contrast. COMPARISON: 10/31/2019 FINDINGS: Mild emphysema and scarring noted predominantly in the lung apices. Scarring noted in the anterior lungs bilaterally. 3 mm left lower lobe pulmonary nodule on image 95 is stable. A pleural nodule in the left lower lobe on image 106 measuring 3 mm is also stable. Pleural effusion pneumothorax or consolidation. There are bilateral breast implants. There is no axillary supraclavicular mediastinal or hilar lymphadenopathy. Size mildly enlarged without pericardial effusion. The thoracic aorta is normal in caliber. No focal liver lesion or biliary duct dilatation identified. The gallbladder is nondistended. The adrenal glands pancreas and spleen are normal in appearance. No hydronephrosis or suspicious renal lesion. The abdominal aorta is atherosclerotic but nonaneurysmal. There is no retroperitoneal mesenteric pelvic or inguinal lymphadenopathy. Surgical changes from abdominoperineal resection and and descending colostomy are present with fat-containing flap at the pelvic floor. No intestinal obstruction or focal bowel wall thickening. No peritoneal or omental nodularity. The uterus contains several small fibroids. Normal ovaries. Normal appendix. Bone windows demonstrate no osseous metastatic disease or fracture. There is grade 1 anterolisthesis of L3 on L4. IMPRESSION: 1. No progressive disease identified in the chest abdomen or pelvis. Electronically signed by: Moshe Calhoun M.D. Talon Steele MD IMG CT PROCEDURES Final Resu lt * (ABNORMAL) POCT creatinine (02/17/2021 8:05 AM ENVELOPE CUTTER) Creatinine POC 0.5(L) 0.6 - 1.1 mg/dL [facility] Blood 02/17/2021 8:05 AM ENVELOPE CUTTER 02/17/2021 8:05 AM ENVELOPE CUTTER Talon Steele MD LAB POCT ORDERABLES - DEVICE Final Result [facility] Department [place] [address] documented in this encounter Visit Diagnoses Diagnosis History of anal cancer documented in this encounter Administered Medications Inactive Administered Medications - up to 3 most recent administrations Medication Order MAR Action Action Date Dose Rate Site ioversoL (OPTIRAY 350) syringe syringe 95 mL 95 mL, intravenous, Once in imaging, contrast, Starting on Tu02/17/21 at 0810, For 1 dose Contrast Given 02/17/2021 8:18 AM ENVELOPE CUTTER 95 mL documented in this encounter Orders Medications Ordered That Omari ht Not Have Been Administered Count Last Ordered Date First Ordered Date ioversoL (OPTIRAY 350) syrin ge syringe 95 mL 1 02/17/2021 documented in this encounter Care Teams Boiler House Operator Relationship Specialty Start Date End Date Heron Ricci DO PCP - General 04/19/16 Ignacio Canela MD Consulting Physician Radiation Oncology 08/12/17 2 documented as of this encounter
--- OUTSIDE RECORDS SUMMARY | 2024-02-28 09:01 | XMS_ITS | Encounter Summary ---
Author Organization [facility] Address [address] [place] [address] Phone Care Team Providers Care Community Planning Technician Name Role Phone Heron Ricci DO Primary Care Provider [phone] Ignacio Canela MD Unavailable [phone] Reason for Visit * Reason Onset Date Comments CT info 01/30/2021 Encounter Details Date Type Department Care Team (Late st Contact Info) Description 01/30/2021 Telephone [facility] Surgery [facility] 8th [place] [address] [place] [address] info Social History Tobacco Use Types Packs/Day Years Used Date Smoking Tobacco: Former Cigarettes 1 45 1 966 - 2010 Smokeless Tobacco: Never Alcohol Use Standard Drinks/Week Comments Not Currently 5 (1 standard drink = 0.6 oz pur e alcohol) Comments No Sex and Gender Information Value Date Recorded Sex Assigned at Not on file Legal Sex Female 8:43 AM COMPLIANCE TECHNICIAN Gender Identity Not on file Sexual Orientation Not on file documented as of this encounter Miscellaneous Notes * Telephone Encounter - Erendira Wyatt RMA - 01/30/2021 11:29 AM CST Pt returned call. Relayed results. LIANCE TECHNICIAN * Telephone Encounter - Erendira Wyatt RMA - 01/30/2021 11:27 AM CST Lm asking for cb for CT details LIANCE TECHNICIAN documented in this encounter Plan of Treatment Not on file documented as of this encounter Visit Diagnoses Not on filedocumented in this encounter Care Teams Community Planning Technician Relationship Specialty Start Date End Date Heron Ricci DO PCP - General 04/19/16 Ignacio Canela MD Consulting Physician Radiation Oncology 08/12/17 2 documented as of this encounter
--- OUTSIDE RECORDS SUMMARY | 2024-02-28 09:01 | XMS_ITS | Encounter Summary ---
Author Organization [facility] Address [address] [place] [address] Phone Care Team Providers Care Manager Online Name Role Phone Heron Ricci DO Primary Care Provider [phone]- [phone] Talon Steele MD Unavailable [phone] Reason for Visit * Reason Onset Date Comments Information Services 11/18/2022 Encounter Details Date Type Department Care Team (Late st Contact Info) Description 11/18/2022 Telephone [facility] Neurological Testing [address] [facility] 6th [place] [address] [place] [address] Kalyani Argueta BS Information Services Social History Tobacco Use Types Packs/Day Years Used Date Smoking Tobacco: Former Cigarettes 1 45 1 966 - 2010 Smokeless Tobacco: Never Alcohol Use Standard Drinks/Week Comments Not Currently 5 (1 standard drink = 0.6 oz pur e alcohol) Comments No Sex and Gender Information Value Date Recorded Sex Assigned at Not on file Legal Sex Female 8:43 AM SENIOR TREASURY CONSULTANT Gender Identity Not on file Sexual Orientation Not on file documented as of this encounter Miscellaneous Notes * Telephone Encounter - Kalyani Argueta BS - 11/18/2022 8:18 AM CDT Fax sent for PA to be completed prior to scheduling the patient to [phone] If you would like to schedule your exam directly with us, please call [phone]. Our office hours are from 8AM to 3:45PM and closed from 11:15- 12:15 for lunch. documented in this encounter Plan of Treatment Not on file documented as of this encounter Visit Diagnoses Not on filedocumented in this encounter Care Teams Manager Online Relationship Specialty Start Date End Date Heron Ricci DO PCP - General 04/19/16 Talon Steele MD [phone] [place] [address] Surgeon Colon and Rectal Surgery 08/07/21 documented as of this encounter
--- OUTSIDE RECORDS SUMMARY | 2024-02-28 09:01 | XMS_ITS | Encounter Summary ---
Author Organization [facility] Address [address] [facility] [address] [place] [address] Phone Care Team Providers Care Hand Spring Former Name Role Phone Heron Ricci DO Primary Care Provider [phone] Ignacio Canela MD Unavailable [phone] Reason for Visit * Reason Comments anal cancer * Consultation (Routine) - Canceled Specialty Diagnoses / Procedures Referred By Emilia t Referred To Contact Surgery / Colon and Rectal Surgery Diagnoses Colostomy care (HCC) Heron Ricci DO Phone: tel: fax: Talon Steele MD [address] [facility] [phone] [place] [address] Phone: tel: fax: Referral ID Status Reason Start Date Expiration Date Visits Requested Visits Authorized [id number] Canceled Specialty Services Required 05/07/2019 11/15/2020 1 1 Encounter Details Date Type Department Care Team (Late st Contact Info) Description 11/20/2019 8:45 AM CDT Office Visit [facility] Surgery [address] [place] [address] Talon Steele MD [address] [facility] [id number] [place] [address] History of anal cancer (Primary Dx) Social History Tobacco Use Types Packs/Day Years Used Date Smoking Tobacco: Former Cigarettes 1 45 1 966 - 2011 Smokeless Tobacco: Never Alcohol Use Standard Drinks/Week Comments Not Currently 5 (1 standard drink = 0.6 oz pur e alcohol) Comments No Sex and Gender Information Value Date Recorded Sex Assigned at Not on file Legal Sex Female 8:43 AM VESSEL SPECIALIST Gender Identity Not on file Sexual Orientation Not on file documented as of this encounter Last Filed Vital Signs Vital Sign Reading Time Taken Comments Blood Pressure 131/83 11/20/2019 8:34 AM CDT Pulse 93 11/20/2019 8:34 AM CDT Temperature 36.5 ??C (97.7 ??F) 11/20/2019 8:34 AM CD T Respiratory Rate 12 11/20/2019 8:34 AM CDT Oxygen Saturation 93% 11/20/2019 8:34 AM CDT Inhaled Oxygen Concentration - - Weight 81.1 kg (178 lb 11.2 oz) 11/20/2019 8:34 AM CDT Height - - Body Mass Index 32.68 11/24/2017 2:09 PM CDT documented in this encounter Progress Notes * Talon Steele MD - 11/20/2019 8:45 AM CDT Colorectal Surgery Clinic Visit Chief Complaint: Roxana Andersen is a 69 y.o. female with chief complaint of anal cancer HPI: 69-year-old woman is 1 1/2 years status post abdominal peroneal resection for anal cancer. Shecontinues to do well. She has good stoma function, good appetite good energy level. She has no complaints of abdominal pain nausea vomiting diarrhea or weight loss. She has no complaints of pelvic pain or drainage or discomfort.. She had a CT scan of the chest abdomen pelvis today, which I personally reviewed the images demonstrates no evidence of any metastatic or recurrent disease. Past Medical History: Diagnosis Date ??? Anal cancer (CMS/HCC) tx. with chemo & radiation ??? 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 COPD (chronic obstructive pulmonary disease) (CMS/HCC) ??? History of anal cancer 11/01/2017 ??? [...] ??? TUBAL LIGATION HOME MEDICATIONS : acetaminophen (TYLENOL EXTRA STRENGTH) 500 mg tablet amLODIPine (NORVASC) 10 mg tablet aspirin 81 mg chewable tablet bacitracin-polymyxin B (POLYSPORIN) ointment budesonide-formoterol (SYMBICORT) 80-4.5 mcg/actuation inhaler hydroCHLOROthiazide (HYDRODIURIL) 25 mg tablet losartan (COZAAR) 100 mg tablet multivitamin capsule naproxen (ALEVE) 220 mg tablet nystatin powder omega 7-rfl-nfe-fish oil 300-1,000 mg capsule oxyCODONE (ROXICODONE) 5 mg immediate release tablet VENTOLIN HFA 90 mcg/actuation inhaler vitamin E 400 unit capsule Allergies Allergen Reactions ??? Sulfa (Sulfonamide Antibiotics) Anaphylaxis ??? Codeine Nausea only and Nausea And Vomiting Reaction: NAUSEA, Social History Tobacco Use ??? Smoking status: Former Smoker Packs/day: 1.00 Types: Cigarettes Start date: 1965 Quit date: 2011 Years since quittin.7 ??? Smokeless tobacco: Never Used Substance Use Topics ??? Alcohol use: Not Currently Alcohol/week: 5.0 standard drinks Types: 5 Standard drinks or equivalent per week Family History Problem Relation Age of Onset [...] as per HPI and scanned media. Vitals: There were no vitals taken for this visit. Physical exam: GENERAL EXAM Appearance - well [...] quadrant colostomy is pink viable and functioning Perineum--wound is well healed with pink viable flap. There is no evidence of any mass or recurrent Assessment: Roxana Andersen is a 69 y.o. female with history of anal cancer Plan: Return to clinic in 3 months Talon Steele MD 11/20/2019 8:30 AM documented in this encounter Plan of Treatment Not on file documented as of this encounter Visit Diagnoses Diagnosis History of anal cancer- Primary documented in this encounter Care Teams Hand Spring Former Relationship Specialty Start Date End Date Heron Ricci DO PCP - General 04/19/16 Ignacio Canela MD Consulting Physician Radiation Oncology 08/12/17 2 documented as of this encounter
--- OUTSIDE RECORDS SUMMARY | 2024-02-28 09:01 | XMS_ITS | Encounter Summary ---
Author Organization [facility] Address [address] [facility] [address] [place] [address] Phone Care Team Providers Care Customer Experience Retail Clerk Name Role Phone Heron Ricci DO Primary Care Provider [phone] Ignacio Canela MD Unavailable [phone] Reason for Visit * Reason Comments anal cancer New Patient * Consultation (Routine) - Closed Specialty Diagnoses / Procedures Referred By Contac t Referred To Contact Surgery / Colon and Rectal Surgery Diagnoses History of anal cancer Heron Ricci DO Phone: tel: fax: Talon Steele MD [address] [facility] [phone] [place] [address] Phone: tel: fax: Referral ID Status Reason Start Date Expiration Date V isits Requested Visits Authorized [id number] Closed Specialty Services Required 04/29/2020 05/29/2021 99 99 Encounter Details Date Type Department Care Team (Late st Contact Info) Description 05/20/2020 9:15 AM CDT Office Visit [facility] Surgery [address] [place] [address] Talon Steele MD [address] [facility] [phone] [place] [address] History of anal cancer Social History Tobacco Use Types Packs/Day Years Used Date Smoking Tobacco: Former Cigarettes 1 45 1 966 - 2010 Smokeless Tobacco: Never Alcohol Use Standard Drinks/Week Comments Not Currently 5 (1 standard drink = 0.6 oz pur e alcohol) Comments No Sex and Gender Information Value Date Recorded Sex Assigned at Not on file Legal Sex Female 8:43 AM RECORD TESTER Gender Identity Not on file Sexual Orientation Not on file documented as of this encounter Last Filed Vital Signs Vital Sign Reading Time Taken Comments Blood Pressure 122/72 05/20/2020 8:57 AM CDT Pulse 93 05/20/2020 8:57 AM CDT Temperature 36.9 ??C (98.4 ??F) 05/20/2020 8:57 AM CD T Respiratory Rate 18 05/20/2020 8:57 AM CDT Oxygen Saturation 90% 05/20/2020 8:57 AM CDT Inhaled Oxygen Concentration - - Weight 82.8 kg (182 lb 9.6 oz) 05/20/2020 8:57 A M CDT Height - - Body Mass Index 33.39 11/24/2017 2:09 PM CDT documented in this encounter Progress Notes * Talon Steele MD - 05/20/2020 9:15 AM CDT Colorectal Surgery Clinic Visit Chief Complaint: Roxana Andersen is a 70 y.o. female with chief complaint of anal cancer (New Patient) HPI: 70-year-old woman is 2 years status post abdominal peroneal resection for recurrent anal cancer. She continues to do well. She is managing her stoma without any difficulty. She has good bowel function, good appetite, good energy level. She has no abdominal pain nausea vomiting. She had a CT scan of the chest abdomen pelvis 6 months ago I have reviewed the report and there is no evidence of any metastatic disease. Past Medical History: Diagnosis Date ??? [...] mg tablet amLODIPine (NORVASC) 10 mg tablet ascorbic acid (vitamin C) 100 mg tablet aspirin 81 mg chewable tablet budesonide-formoterol (SYMBICORT) 80-4.5 mcg/actuation inhaler calcium carbonate (CALCIUM 500 ORAL) cholecalciferol (Vitamin D3) 1,000 unit capsule coenzyme Q10 10 mg capsule rrsl-iuq-eoi V-XE-ywhn-diet 29 125 mg-37.5 mg- 500 mcg-1.25mg capsule hydroCHLOROthiazide (HYDRODIURIL) 25 mg tablet losartan (COZAAR) 100 mg tablet multivitamin capsule naproxen (ALEVE) 220 mg tablet nystatin powder omega 8-gxo-gfu-fish oil 300-1,000 mg capsule VENTOLIN HFA 90 mcg/actuation inhaler vitamin B complex (B COMPLEX 1 ORAL) vitamin E 400 unit capsule bacitracin-polymyxin B (POLYSPORIN) ointment oxyCODONE (ROXICODONE) 5 mg immediate release tablet Allergies Allergen Reactions ??? Sulfa (Sulfonamide Antibiotics) Anaphylaxis ??? Codeine Nausea only and Nausea And Vomiting Reaction: NAUSEA, Social History Tobacco Use ??? Smoking status: Former Smoker Packs/day: 1.00 Types: Cigarettes Start date: 1965 Quit date: 2010 Years since quittin.2 ??? Smokeless tobacco: Never Used Substance Use Topics ??? Alcohol use: Not Currently Alcohol/week: 5.0 standard drinks Types: 5 Standard drinks or equivalent per week Family History Problem Relation Age of Onset ??? Heart disease Father Heart Disease - (Added by Conv) ??? Diabetes Other Diabetes Mellitus - (Added by Conv) ??? Cancer Other Cancer - (Added by Conv) ??? Breast cancer Mother Breast Cancer - (Added by TW Conv) ??? Colon polyps Mother ??? Bladder Cancer Brother Family history of bladder cancer - (Added by Conv) Review of Systems: All systems are negative except as per HPI and scanned media. Vitals: Vitals BP 122/72 Pulse 93 Temp 36.9 ??C (98.4 ??F) Resp 18 Wt 82.8 kg (182 lb 9.6 oz) SpO2 90% BMI 33.39 kg/m?? Physical exam: GENERAL EXAM Appearance - well developed, well nourished Orientation - alert and oriented x 3 Eyes - anicteric Ears, mouth and nose: Normal Neurologic: Non-focal motor function Pulmonary: Non-labored breathing, no audible wheezing Integumentary: No rashes Musculoskeletal: No gross bony deformities Abdomen -- Soft nontender, nondistended, no masses. Midline incision is well healed with no obvioushernia. Left lower quadrant colostomy is pink viable and functioning with a symptomatic hernia Perineum--wound is well healed with a good viable flap. Assessment: Roxana Andersen is a 70 y.o. female with history of anal cancer Plan: Return to clinic in 6 months. She will let us know the date of that visit will make arrangements for a CT scan of the chest abdomen pelvis prior to that visit. Talon Steele MD 05/20/2020 9:35 AM documented in this encounter Plan of Treatment Not on file documented as of this encounter Visit Diagnoses Diagnosis History of anal cancer documented in this encounter Historical Medications * This list may reflect changes made after this encounter. mexk-imu-[id number] X-HT-ukok-diet 29 125 mg-37.5 mg- 500 mcg-1.25mg capsule Take by mouth 2 (two) times a day calcium carbonate (CALCIUM 500 ORAL) Take by mouth 2 (two) times a week vitamin B complex (B COMPLEX 1 ORAL) Take by mouth 2 (two) times a week ascorbic acid (VITAMIN C) 100 mg tablet Take 1 tablet (100 mg total) by mouth 2 (two) times a week cholecalciferol (VITAMIN D-3) 1,000 unit capsule Take 1 capsule (1,000 Units total) by mouth 2 (two) times a week coenzyme Q10 10 mg capsule Take 1 capsule (10 mg total) by mouth 2 (two) times a week 01/11/2024 added in this encounter Orders Outpatient Referral Count Last Ordered Date Fir st Ordered Date AMB REFERRAL TO COLORECTAL SURGERY 1 2020 documented in this encounter Care Teams Customer Experience Retail Clerk Relationship Specialty Start Date End Date Heron Ricci DO PCP - General 04/19/16 Ignacio Canela MD Consulting Physician Radiation Oncology 08/12/17 2 documented as of this encounter
--- OUTSIDE RECORDS SUMMARY | 2024-02-28 09:01 | XMS_ITS | Encounter Summary ---
Author Organization [facility] Address [address] [place] [address] Phone Care Team Providers Care Maintenance Parts Technician Name Role Phone Heron Ricci DO Primary Care Provider [phone] Talon Steele MD Unavailable [phone] Encounter Details Date Type Department Care Team (Late st Contact Info) Description 09/17/[address] 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 Her last visit was in January 2021 so she is scheduled to see Dr. Steele on September 22. documented in this encounter Plan of Treatment Not on file documented as of this encounter Visit Diagnoses Not on filedocumented in this encounter Care Teams Maintenance Parts Technician Relationship Specialty Start Date End Date Heron Ricci DO PCP - General 04/19/16 Talon Steele MD [address] [facility] [phone] [place] [address] Surgeon Colon and Rectal Surgery 08/07/21 documented as of this encounter
--- OUTSIDE RECORDS SUMMARY | 2024-02-28 09:01 | XMS_ITS | Encounter Summary ---
Author Organization [facility] Address [address] [facility] [address] [place] [address] Phone Care Team Providers Care Department Of Mathematics Chair Name Role Phone Heron Ricci DO Primary Care Provider [phone] Ignacio Canela MD Unavailable [phone] Encounter Details Date Type Department Care Team (Late st Contact Info) Description 01/30/2021 Orders Only [facility] Surgery [address] [facility] Advanced Medicine 8th [place] [address] [place] [address] Blank Mercado MD [address] [facility] [phone] [place] [address] History of anal cancer (Primary Dx); History of rectal cancer Social History Tobacco Use Types Packs/Day Years Used Date Smoking Tobacco: Former Cigarettes 1 45 1 966 - 2010 Smokeless Tobacco: Never Alcohol Use Standard Drinks/Week Comments Not Currently 5 (1 standard drink = 0.6 oz pur e alcohol) Comments No Sex and Gender Information Value Date Recorded Sex Assigned at Not on file Legal Sex Female 8:43 AM MANAGER ENVIRONMENTAL Gender Identity Not on file Sexual Orientation Not on file documented as of this encounter Plan of Treatment Not on file documented as of this encounter Visit Diagnoses Diagnosis History of anal cancer- Primary History of rectal cancer documented in this encounter Care Teams Department Of Mathematics Chair Relationship Specialty Start Date End Date Heron Ricci DO PCP - General 04/19/16 Ignacio Canela MD Consulting Physician Radiation Oncology 08/12/17 2 documented as of this encounter
--- OUTSIDE RECORDS SUMMARY | 2024-02-28 09:01 | XMS_ITS | Encounter Summary ---
Author Organization [facility] Address [address] [place] [address] Phone Care Team Providers Care Professional Sports Scout Name Role Phone Heron Ricci DO Primary Care Provider [phone] Ignacio Canela MD Unavailable [phone] Reason for Referral * MRI/CAT/PET Scan (Routine) - Closed Specialty Diagnoses / Procedures Referred By Contac t Referred To Contact Radiology Diagnoses History of anal cancer Procedures CT Chest Abdomen Pelvis W Contrast Talon Steele MD [address] [facility] [phone] [place] [address] Phone: tel: fax: [facility] Referral ID Status Reason Start Date Expiration Date Visits Re quested Visits Authorized [id number] Closed 02/07/2021 08/06/2021 1 1 TIRE RECAPPER Encounter Details Date Type Department Care Team (Late st Contact Info) Description 01/30/2021 Orders Only [facility] Surgery [address] [facility] 8th [place] [address] [place] [address] Talon Steele MD [address] [facility] [phone] [place] [address] History of anal cancer (Primary Dx) Social [...] on file Legal Sex Female 8:43 AM AUTO TIRE RECAPPER Gender Identity Not on file Sexual Orientation Not on file documented as of this encounter Plan of Treatment Not on file documented as of this encounter Results * CT Chest Abdomen Pelvis W Contrast (02/17/2021 8:18 AM AUTO TIRE RECAPPER) Anatomical Region Laterality Modality Body N/A Computed Tomogra phy 02/17/2021 9:18 AM AUTO TIRE RECAPPER Impressions 02/17/2021 9:18 AM AUTO TIRE RECAPPER 1. No progressive disease identified in the chest abdomen or pelvis. Electronically signed by: Moshe Calhoun M.D. Narrative 02/17/2021 9:18 AM AUTO TIRE RECAPPER EXAMINATION: ??Computed tomography of the chest, abdomen [...] MD IMG CT PROCEDURES Final Resu lt documented in this encounter Visit Diagnoses Diagnosis History of anal cancer- Primary History of anal cancer documented in this encounter Care Teams Professional Sports Scout Relationship Specialty Start Date End Date Heron Ricci DO PCP - General 04/19/16 Ignacio Canela MD Consulting Physician Radiation Oncology 08/12/17 2 documented as of this encounter
--- OUTSIDE RECORDS SUMMARY | 2024-02-28 09:01 | XMS_ITS | Encounter Summary ---
Author Organization [facility] Address [address] [facility] [address] [place] [address] Phone Care Team Providers Care C Engineer Name Role Phone Heron Ricci DO Primary Care Provider [phone] Ignacio Canela MD Unavailable [phone] Reason for Visit * Reason Comments Anal Cancer * Consultation (Routine) - Closed Specialty Diagnoses / Procedures Referred By Contlaya berkowitz Referred To Contact Surgery / Colon and Rectal Surgery Diagnoses History of anal cancer Heron Ricci DO Phone: tel: fax: Talon Steele MD [address] [facility] [phone] [place] [address] Phone: tel: fax: Referral ID Status Reason Start Date Expiration Date V isits Requested Visits Authorized [id number] Closed Specialty Services Required 04/29/2020 05/29/2021 99 99 Encounter Details Date Type Department Care Team (Late st Contact Info) Description 02/17/2021 9:45 AM ELECTROCARDIOGRAPH TECHNICIAN Office Visit [facility] Surgery [address] [place] [address] Talon Steele MD [address] [facility] [phone] [place] [address] History of anal cancer (Primary Dx) Social [...] on file Legal Sex Female 8:43 AM ELECTROCARDIOGRAPH TECHNICIAN Gender Identity Not on file Sexual Orientation Not on file documented as of this encounter Last Filed Vital Signs Vital Sign Reading Time Taken Comments Blood Pressure 160/78 02/17/2021 9:21 AM ELECTROCARDIOGRAPH TECHNICIAN Pulse 70 02/17/2021 9:21 AM ELECTROCARDIOGRAPH TECHNICIAN Temperature 36.6 ??C (97.9 ??F) 02/17/2021 9:21 AM CS T Respiratory Rate 16 02/17/2021 9:21 AM ELECTROCARDIOGRAPH TECHNICIAN Oxygen Saturation 91% 02/17/2021 9:21 AM ELECTROCARDIOGRAPH TECHNICIAN Inhaled Oxygen Concentration - - Weight 80.1 kg (176 lb 9.6 oz) 02/17/2021 9:21 A M ELECTROCARDIOGRAPH TECHNICIAN Height - - Body Mass Index 32.29 11/24/2017 2:09 PM CDT documented in this encounter Progress Notes * Talon Steele MD - 02/17/2021 9:45 AM CST Colorectal Surgery Clinic Visit Chief Complaint: Roxana Andersen is a 70 y.o. female with chief complaint of Anal Cancer HPI: 70-year-old woman is 3 years status post abdominal peroneal resection for recurrent anal cancer. She continues to do well from a GI standpoint. She is having some associated back issues. Her stoma is working well. She has no abdominal pain perineal pain. She had a CT scan of the chest abdomen pelvis, which I personally reviewed the images and demonstrates no evidence of any metastatic or [...] acetaminophen (TYLENOL EXTRA STRENGTH) 500 mg tablet ascorbic acid (vitamin C) 100 mg tablet aspirin 81 mg chewable tablet bacitracin-polymyxin B (POLYSPORIN) ointment budesonide-formoterol (SYMBICORT) 80-4.5 mcg/actuation inhaler calcium carbonate (CALCIUM 500 ORAL) cholecalciferol (Vitamin D3) 1,000 unit capsule coenzyme Q10 10 mg capsule nwei-odc-hwu X-JJ-bbud-diet 29 125 mg-37.5 mg- 500 mcg-1.25mg capsule hydroCHLOROthiazide (HYDRODIURIL) 25 mg tablet losartan (COZAAR) 100 mg tablet meloxicam (MOBIC) 15 mg tablet multivitamin capsule naproxen (ALEVE) 220 mg tablet nystatin powder omega 1-msf-rvw-fish oil 300-1,000 mg capsule VENTOLIN HFA 90 mcg/actuation inhaler vitamin B complex (B COMPLEX 1 ORAL) vitamin E 400 unit capsule amLODIPine (NORVASC) 10 mg tablet oxyCODONE (ROXICODONE) 5 mg immediate release tablet Allergies Allergen Reactions ??? Sulfa (Sulfonamide Antibiotics) Anaphylaxis ??? Codeine Nausea only and Nausea And Vomiting Reaction: NAUSEA, Social History Tobacco Use ??? Smoking status: Former Smoker Packs/day: 1.00 Types: Cigarettes Start date: 1965 Quit date: 2011 Years since quittin.9 ??? Smokeless tobacco: Never Used Substance Use [...] cancer Mother Breast Cancer - (Added by Conv) ??? Colon polyps Mother ??? Bladder Cancer Brother Family history of bladder cancer - (Added by TW Conv) Review of Systems: All systems are negative except as per HPI and scanned media. Vitals: Vitals BP 160/78 Pulse 70 Temp 36.6 ??C (97.9 ??F) Resp 16 Wt 80.1 kg (176 lb 9.6 oz) SpO2 91% BMI 32.29 kg/m?? Physical exam: GENERAL EXAM Appearance - well developed, well nourished Orientation - alert and oriented x 3 Eyes - anicteric Ears, mouth and nose: Normal Neurologic: Non-focal motor function Pulmonary: Non-labored breathing, no audible wheezing Integumentary: No rashes Musculoskeletal: No gross bony deformities Abdomen -- Soft nontender, nondistended, no masses. Midline incision is well healed with no definitive hernia. Left lower quadrant colostomy is pink viable and functioning. Perineum--flap is intact and well healed with no masses. Assessment: Roxana Andersen is a 70 y.o. female with history of anal cancer Plan: Return to clinic in 6 months Talon Steele MD 02/17/2021 10:00 AM TROCARDIOGRAPH TECHNICIAN documented in this encounter Plan of Treatment Not on file documented as of this encounter Visit Diagnoses Diagnosis History of anal cancer- Primary documented in this encounter Historical Medications * This list may reflect changes made after this encounter. Medication Sig Dispense Quantity Refills Last Filled Start D ate End Date meloxicam (MOBIC) 15 mg tablet 02/04/2021 added in this encounter Care Teams C Engineer Relationship Specialty Start Date End Date Heron Ricci DO PCP - General 04/19/16 Ignacio Canela MD Consulting Physician Radiation Oncology 08/12/17 2 documented as of this encounter
--- OUTSIDE RECORDS SUMMARY | 2024-02-28 09:01 | XMS_ITS | Encounter Summary ---
Author Organization [facility] Address [address] [place] [address] Care Team Providers Care Electric System Operator Name Role Phone Heron Ricci DO Primary Care Provider [phone] Ignacio Canela MD Unavailable [phone] Encounter Details Date Type Department Care Team (Latest Contact Info) Description 12/25/2020 11:53 AM CDT - 12/25/2020 11:59 PM CDT Hospital Encounter [facility] Discharge Disposition: Discharge to home or self [...] on file Legal Sex Female 8:43 AM DAY GUARD Gender Identity Not on file Sexual Orientation [...] by mouth 2 (two) times a week trcv-xzo-nen F-UF-ddab-diet 29 125 mg-37.5 mg- 500 mcg-1.25mg capsule Take by mouth 2 (two) times a day multivitamin capsule Take 1 capsule by mouth 2 (two) times a week naproxen (ALEVE) 220 mg tablet Take 1 tablet (220 mg total) by mouth every 12 (twelve) hours as needed nystatin powder Apply to affected area with pouch changes 30 g 1 11/17/2017 omega 8-mlv-ito-fish oil 300-1,000 mg capsule Take 1 capsule [...] on filedocumented in this encounter Care Teams Electric System Operator Relationship Specialty Start Date End Date Heron Ricci DO PCP - General 04/19/16 Ignacio Canela MD Consulting Physician Radiation Oncology 08/12/17 2 documented as of this encounter
--- OUTSIDE RECORDS SUMMARY | 2024-02-28 09:01 | XMS_ITS | Encounter Summary ---
Author Organization [facility] Address [address] [place] [address] Phone Care Team Providers Care Music Theory Teacher Name Role Phone Heron Ricci DO Primary Care Provider [phone] Ignacio Canela MD Unavailable [phone] Reason for Visit * Reason Onset Date Comments insurance partial approval 04/14/2021 [employer] Medicare partial authorization Encounter Details Date Type Department Care Team (Late st Contact Info) Description 04/14/2021 Telephone [facility] Department of Surgery, Section of Colon and Rectal Surgery [address] [place] [address] Medicine 12th Floor, [place] [address] Jaleesa Victor BS insurance partial approval ([employer] Medicare partial authorization) Social History Tobacco Use Types Packs/Day Years Used Date Smoking Tobacco: Former Cigarettes 1 45 1 966 - 2010 Smokeless Tobacco: Never Alcohol Use Standard Drinks/Week Comments Not Currently 5 (1 standard drink = 0.6 oz pur e alcohol) Comments No Sex and Gender Information Value Date Recorded Sex Assigned at Not on file Legal Sex Female 8:43 AM MAILS SUPERVISOR Gender Identity Not on file Sexual Orientation Not on file documented as of this encounter Miscellaneous Notes * Telephone Encounter - Tangela Donovan BDiana - 04/14/2021 3:12 PM MAILS SUPERVISOR Belt number [id number] S SUPERVISOR * Telephone Encounter - Erendira Giron LPN - 04/14/2021 1:44 PM MAILS SUPERVISOR LM for patient to discuss peer to peer. Belt item number needed and need for one per month. S SUPERVISOR * Telephone Encounter - Jaleesa Victor - 04/14/2021 1:31 PM MAILS SUPERVISOR [employer] called offering a peer to peer opportunity to cover 12 hernia belts for 12 months. Currently there is an approval for 6 belts for 6 months. Medicare Guidelines to not allow for dispensing of 12belts for 12 months. The reference number for the peer to peer is [id number]. The phone number is [phone]. This must be completed by 04/16/2021 at 1pm. S SUPERVISOR documented in this encounter Plan of Treatment Not on file documented as of this encounter Visit Diagnoses Not on filedocumented in this encounter Care Teams Music Theory Teacher Relationship Specialty Start Date End Date Heron Ricci DO PCP - General 04/19/16 Ignacio Canela MD Consulting Physician Radiation Oncology 08/12/17 2 documented as of this encounter
--- OUTSIDE RECORDS SUMMARY | 2024-02-28 09:01 | XMS_ITS | Encounter Summary ---
Author Organization [facility] Address [address] [place] [address] Phone Care Team Providers Care Aircraft Engine Mechanic Supervisor Name Role Phone Heron Ricci DO Primary Care Provider [phone] Talon Steele MD Unavailable [phone] Encounter Details Date Type Department Care Team (Late st Contact Info) Description 07/30/2022 Orders Only [facility] [address] [place] [address] Scanning, Provider Social History Tobacco Use Types Packs/Day Years Used Date Smoking Tobacco: Former Cigarettes 1 45 1 966 - 2010 Smokeless Tobacco: Never Alcohol Use Standard Drinks/Week Comments Not Currently 5 (1 standard drink = 0.6 oz pur e alcohol) Comments No Sex and Gender Information Value Date Recorded Sex Assigned at Not on file Legal Sex Female 8:43 AM WOOD PLANER Gender Identity Not on file Sexual Orientation Not on file documented as of this encounter Plan of Treatment Not on file documented as of this encounter Procedures Procedure Name Priority Date/Time Associated Diagnosis Comments SCAN - OTHER ORDERS 07/30/2022 4:58 PM CDT documented in this encounter Results * SCAN - OTHER ORDERS (07/30/2022 4:58 PM CDT) us Provider Scanning Final Result documented in this encounter Visit Diagnoses Not on filedocumented in this encounter Care Teams Aircraft Engine Mechanic Supervisor Relationship Specialty Start Date End Date Heron Ricci DO PCP - General 04/19/16 Talon Steele MD [address] [facility] [phone] [place] [address] Surgeon Colon and Rectal Surgery 08/07/21 documented as of this encounter
--- OUTSIDE RECORDS SUMMARY | 2024-02-28 09:01 | XMS_ITS | Encounter Summary ---
Author Organization [facility] Address [address] [place] [address] Phone Care Team Providers Care Gamb Cutter Name Role Phone Heron Ricci DO Primary Care Provider [phone]- [phone] Ignacio Canela MD Unavailable [phone] Reason for Visit * Reason Onset Date Comments [employer] form 04/01/2021 Encounter Details Date Type Department Care Team (Late st Contact Info) Description 04/01/2021 Telephone [facility] Department of Surgery, Section of Colon and Rectal Surgery [address] [facility] 12th Floor, [place] [address] Jaleesa Victor BS [employer] form Social History Tobacco Use Types Packs/Day Years Used Date Smoking Tobacco: Former Cigarettes 1 45 1 966 - 2010 Smokeless Tobacco: Never Alcohol Use Standard Drinks/Week Comments Not Currently 5 (1 standard drink = 0.6 oz pur e alcohol) Comments No Sex and Gender Information Value Date Recorded Sex Assigned at Not on file Legal Sex Female 8:43 AM STEWARD/STEWARDESS WINE Gender Identity Not on file Sexual Orientation Not on file documented as of this encounter Miscellaneous Notes * Telephone Encounter - Jaleesa Victor - 04/02/2021 10:57 AM STEWARD/STEWARDESS WINE Spoke to Ellie, They had our old fax number and I updated the record for this patient. Faxed supporting documents to [phone] Confirmed with them the patient is NOT due for a follow up at this time. That notation is removed. Request she send the final order. Mar 31 other items were already shipped to the patient. We are only waiting for a form on a replacement ostomy belt to sign here at this time per Ellie. Attempted call twice to her home phone that rings busy. Left a voicemail for her listed spouse asking the patient call the office for an update. ARD/STEWARDESS WINE ARD/STEWARDESS WINE * Telephone Encounter - Jaleesa Victor - 04/01/2021 4:00 PM STEWARD/STEWARDESS WINE Patient concerned that Ellie was denied due to needing an office visit. She is current and we can sign for her DME supplies. RN states she does not have a form to complete. I will call Ellie tomorrow. ARD/STEWARDESS WINE documented in this encounter Plan of Treatment Not on file documented as of this encounter Visit Diagnoses Not on filedocumented in this encounter Care Teams Gamb Cutter Relationship Specialty Start Date End Date Heron Ricci DO PCP - General 04/19/16 Ignacio Canela MD Consulting Physician Radiation Oncology 08/12/17 2 documented as of this encounter
--- OUTSIDE RECORDS SUMMARY | 2024-02-28 09:01 | XMS_ITS | Encounter Summary ---
Author Organization [facility] Address [address] [place] [address] Phone Care Team Providers Care Weatherization And Housing Inspector Name Role Phone Heron Ricci DO Primary Care Provider [phone] Talon Steele MD Unavailable [phone] Encounter Details Date Type Department Care Team (Late st Contact Info) Description 07/06/2022 Orders Only [facility] [address] [place] [address] Unknown, Notinfile Social History Tobacco Use Types Packs/Day Years Used Date Smoking Tobacco: Former Cigarettes 1 45 1 966 - 2010 Smokeless Tobacco: Never Alcohol Use Standard Drinks/Week Comments Not Currently 5 (1 standard drink = 0.6 oz pur e alcohol) Comments No Sex and Gender Information Value Date Recorded Sex Assigned at Not on file Legal Sex Female 8:43 AM CLICKER OPERATOR Gender Identity Not on file Sexual Orientation Not on file documented as of this encounter Plan of Treatment Not on file documented as of this encounter Procedures Procedure Name Priority Date/Time Associated Diagnosis Comments NEUROMUSCULAR TESTING Routine 07/06/2022 12:00 AM CDT documented in this encounter Results * Neuromuscular Testing ([facility]) (07/06/2022 12:00 AM CDT) Serum 07/06/2022 07/12/2022 Narrative 08/05/2022 3:55 PM CDT ? NEUROMUSCULAR CLINICAL LABORATORY ? [facility] [address] [place] [address]; ; NEUROMUSCULAR ANTIBODY REPORT ? Patient:ZOE ANDERSENMRN:[id number] Date:1950 (Age: 72)NM ID: ??[id number] Type:A: Serum B: Biomarker - SerumSample Number:[id number]: ??Collected: 07/06/2022 ? Received: ??07/12/2022Referral:[facility] Report Date: 07/29/2022 Motor Neuropathy Panel AntibodyPatient ValuesNormal ValuesIgM vs GM10<2000IgM vs WINDOWS SECURITY ENGINEER-90<3000IgM vs NS6S0<15,000IgM VS GalNAc-GD1a0<10,000IgM vs asialo-GM10<3000IgM vs GD1b0<3000IgG vs GM10<2000IgG vs GalNAc-GD1a0<2500IgM vs MAG0<3000 ?? MAG Western BlotNegativeIgM vs Histone H30<5000IgM vs GD1a0<2000 INTERPRETATION: Above results are within normal limits. Note: ??Levels of neurofilament light chains in the serum will be measured as part of Motor, Acute, and Peripheral testing panels. There will be an additional charge for this extra test. These results have been electronically signed by Jared Wilder, ??[place]. Dr. Wilder has reviewed and interpreted the results in this report. Abnormal results are reported in Bold. * Antibody titers are reported as the calculated difference between patient IgM or IgG binding to the specific test antigen and other test antigens. ??To perform this calculation, which greatly increases clinical specificity, FITZ testing of all serums always includes testing for sets of several antigens. ??The sets of tested antigens can include IgM vs. Histone H3, GD1a, and Co-GD1a, and; IgG vs. Sulfatide and GM1 ganglioside. ??MAG and Tubulin FITZ testing often requires additional Western blot evaluation for specificity. ??Detailed antibody testing methods, calculations, and information is available on our Web Page: [email or web address] ?? Street address: ??[address] [place] [address]. These tests were developed, and their performance characteristics determined, by the [facility]. ??They have not been cleared or approved by the US Food and Drug Administration. The FDA has determined that such clearance or approval is not necessary. These tests are used for clinical purposes. They should not be regarded as investigational or for research. ??This laboratory is certified under the Clinical Laboratory Improvement Amendments of 1988 (CLIA-88) as qualified to perform high complexity clinical laboratory testing. Report Date: 08/05/2022 BIOMARKER REPORT ?Neurofilament Light Chain (NfL) Levels: ??Serum Patient Value (pg/ml)[id number]< 3030 - 60> 60 INTERPRETATION: The value above is borderline elevated and may be normal for age. ??High or intermediate levels of Neurofilament Light Chain (NfL) in serum can occur in disorders with ongoing axon or neuron cell body damage. ??Serum NfL values can increase with age, and to a lesser degree with elevated creatinine and impaired glucose tolerance (ref PMID: [id number]) These results have been electronically signed by Dhaval Dawson M.D., Ph.D. Dhaval Dawson M.D., Ph.D. has reviewed and interpreted the results in this report. Abnormal results are reported in Bold. Detailed antibody testing methods, calculations, and information is available on our Web Page: [email or web address] Street address: [address] [place] [address]. These tests were developed, and their performance characteristics determined, by the [facility]. They have not been cleared or approved by the US Food and Drug Administration. The FDA has determined that such clearance or approval is not necessary. These tests are used for clinical purposes. They should not be regarded as investigational or for research. This laboratory is certified under the Clinical Laboratory Improvement Amendments of 1988 (CLIA-88) as qualified to perform high complexity clinical laboratory testing. . us Notinfile Unknown LAB PATHOLOGY ORDERABLES Final Result documented in this encounter Visit Diagnoses Not on filedocumented in this encounter Care Teams Weatherization And Housing Inspector Relationship Specialty Start Date End Date Heron Ricci DO PCP - General 04/19/16 Talon Steele MD [phone] [place] [address] Surgeon Colon and Rectal Surgery 08/07/21 documented as of this encounter
--- OUTSIDE RECORDS SUMMARY | 2024-02-28 09:01 | XMS_ITS | Encounter Summary ---
Author Organization [facility] Address [address] [facility] [address] [place] [address] Phone Care Team Providers Care Editing Intern Name Role Phone Heron Ricci DO Primary Care Provider [phone] Talon Steele MD Unavailable [phone] Reason for Visit * Reason Comments Anal Cancer Encounter Details Date Type Department Care Team (Late st Contact Info) Description 11/02/2022 8:45 AM CDT Office Visit [facility] Surgery [address] [place] [address] Talon Steele MD [address] [facility] [phone] [place], [place] [id number] History of anal cancer (Primary Dx) Social [...] on file Legal Sex Female 8:43 AM CAR WIPER Gender Identity Not on file Sexual Orientation Not on file documented as of this encounter Last Filed Vital Signs Vital Sign Reading Time Taken Comments Blood Pressure 166/83 11/02/2022 8:39 AM CDT Pulse 77 11/02/2022 8:39 AM CDT Temperature - - Respiratory Rate - - Oxygen Saturation - - Inhaled Oxygen Concentration - - Weight 73.4 kg (161 lb 12.8 oz) 11/02/2022 8:39 AM CDT Height 157.5 cm (5' 2 ) 11/02/2022 8:39 AM CDT Body Mass Index 29.59 11/02/2022 8:39 AM CDT documented in this encounter Progress Notes * Talon Steele MD - 11/02/2022 8:45 AM CDT Colorectal Surgery Clinic Visit Chief Complaint: Roxana Andesren is a 72 y.o. female with chief complaint of Anal Cancer HPI: 72-year-old woman is 5 years status post abdominal peroneal resection for anal cancer. Overallshe continues to do well. She has right upper extremity weakness and dysfunction most likely due tocervical spine issues. She is managing her stoma well. She has no complaints of abdominal pain change in her bowel habits. She had a CT scan in April that was unremarkable. Past Medical History: Diagnosis Date Anal cancer [...] unit capsule coenzyme Q10 10 mg capsule ahdv-rwo-bgb T-LT-jwlg-diet 29 125 mg-37.5 mg- 500 mcg-1.25mg capsule hydroCHLOROthiazide (HYDRODIURIL) 25 mg tablet losartan (COZAAR) 100 mg tablet meloxicam (MOBIC) 15 mg tablet multivitamin capsule naproxen (ALEVE) 220 mg tablet nystatin powder omega 9-ehi-rbg-fish oil 300-1,000 mg capsule VENTOLIN HFA 90 mcg/actuation inhaler vitamin B complex (B COMPLEX 1 ORAL) vitamin E 400 unit capsule Allergies Allergen Reactions Sulfa (Sulfonamide Antibiotics) Anaphylaxis Codeine Nausea only and Nausea And Vomiting Reaction: NAUSEA, Social History Tobacco Use Smoking status: Former Packs/day: 1 Types: Cigarettes Start date: 1965 Quit date: [...] cancer Mother Breast Cancer - (Added by [employer] Conv) Colon polyps Mother Bladder Cancer Brother Family history of bladder cancer - (Added by TW Conv) Review of Systems: All systems are negative except as per HPI and scanned media. Vitals: Vitals BP 166/83 Pulse 77 Ht 157.5 cm (5' 2 ) Wt 73.4 kg (161 lb 12.8 oz) BMI 29.59 kg/m?? Physical exam: GENERAL EXAM Appearance - well developed, well nourished Orientation - alert and oriented x 3 Eyes - anicteric Ears, mouth and nose: Normal Neurologic: Non-focal motor function Pulmonary: Non-labored breathing, no audible wheezing Integumentary: No rashes Musculoskeletal: No gross bony deformities Abdomen -- Soft nontender, nondistended, no masses. Midline incision is well healed. Left lower quadrant colostomy is pink viable and function Assessment: Roxana Andersen is a 72 y.o. female with history of anal cancer Plan: This concludes her long-term cancer surveillance. We also discussed whether she would like a follow-up CT scan this spring. She is not interested and is happy with her result at this point. Return to clinic p.r.n. Talon G. Mutch, MD 11/02/2022 9:00 AM documented in this encounter Plan of Treatment Not on file documented as of this encounter Visit Diagnoses Diagnosis History of anal cancer- Primary documented in this encounter Care Teams Editing Intern Relationship Specialty Start Date End Date Heron Ricci DO PCP - General 04/19/16 Talon Steele MD [phone] [place] [address] Surgeon Colon and Rectal Surgery 08/07/21 documented as of this encounter
--- OUTSIDE RECORDS SUMMARY | 2024-02-28 09:01 | XMS_ITS | Encounter Summary ---
Author Organization [facility] Address [address] [place] [address] Phone Care Team Providers Care Interior Paneler Name Role Phone Heron Ricci DO Primary Care Provider [phone]- [phone] Talon Steele MD Unavailable [phone] Reason for Referral * MRI/CAT/PET Scan (Routine) - Closed Specialty Diagnoses / Procedures Referred By Contac t Referred To Contact Radiology Diagnoses History of anal cancer Procedures CT Chest Abdomen Pelvis W Contrast Talon Steele MD [address] [facility] [phone] [place] [address] Phone: tel: fax: [facility] Referral ID Status Reason Start Date Expiration Date Visits Re quested Visits Authorized [id number] Closed 04/26/2022 10/23/2022 1 1 ING MANAGER Encounter Details Date Type Department Care Team (Late st Contact Info) Description 04/26/2022 Orders Only [facility] Surgery [address] [facility] [address] [place] [address] Talon Steele MD [address] [facility] [phone] [place] [address] History of anal cancer (Primary [...] on file Legal Sex Female 8:43 AM CLOSING MANAGER Gender Identity Not on file Sexual Orientation Not on file documented as of this encounter Plan of Treatment Not on file documented as of this encounter Results * CT Chest Abdomen Pelvis W Contrast (05/04/2022 9:41 AM CLOSING MANAGER) Anatomical Region Laterality Modality Body N/A Computed Tomogra phy 05/04/2022 9:54 AM CLOSING MANAGER Impressions 05/04/2022 9:54 AM CLOSING MANAGER 1. ??New region of consolidation left lung base likely infectious or inflammatory. 2. ??Otherwise no evidence of metastatic disease to the chest abdomen or pelvis. Electronically signed by: José Miguel Ortiz M.D. Narrative 05/04/2022 9:54 AM CLOSING MANAGER EXAMINATION: ??Computed tomography of the chest, abdomen [...] José Miguel Ortiz M.D. Talon Steele MD IM CT PROCEDURES Final Resu lt documented in this encounter Visit Diagnoses Diagnosis History of anal cancer- Primary History of anal cancer documented in this encounter Care Teams Interior Paneler Relationship Specialty Start Date End Date Heron Ricci DO PCP - General 04/19/16 Talon Steele MD [phone] [place] [address] Surgeon Colon and Rectal Surgery 08/07/21 documented as of this encounter
--- OUTSIDE RECORDS SUMMARY | 2024-02-28 09:02 | XMS_ITS | Encounter Summary ---
Author Organization [facility] Address [address] [place] [address] Phone Care Team Providers Care Automatic Trimming Sewer Name Role Phone Heron Ricci DO Primary Care Provider [phone] Ignacio Canela MD Unavailable [phone] Reason for Visit * Consultation (Routine) - Closed Specialty Diagnoses / Procedures Referred By Emilia berkowitz Referred To Contact Plastic Surgery Diagnoses 2-3 WEEK F/U ANUS Procedures POSTOPERATIVE VISIT Talon Steele MD Phone: tel: fax: Clarita Villa MD [address] [place] [address] Phone: tel: fax: Referral ID Status Reason Start Date Expiration Date Visits Re quested Visits Authorized [id number] Closed 12/07/2017 06/18/2019 1 1 Encounter Details Date Type Department Care Team (Late st Contact Info) Description 12/07/2017 9:00 AM CDT Office Visit [facility] Surgery [facility] [address] [place] [address] Clarita Villa MD [address] [place] [address] Anal cancer (CMS/HCC) (Primary Dx) Social History Tobacco Use Types Packs/Day Years Used Date Smoking Tobacco: Former Cigarettes 1 45 1 966 - 2010 Smokeless Tobacco: Never Alcohol Use Standard Drinks/Week Comments Yes 5 (1 standard drink = 0.6 oz pur e alcohol) Comments No Sex and Gender Information Value Date Recorded Sex Assigned at Not on file Legal Sex Female 8:43 AM COMMUNITY EDUCATOR Gender Identity Not on file Sexual Orientation Not on file documented as of this encounter Progress Notes * Clarita Villa MD - 12/07/2017 9:00 AM CDT Images from the original note were not included. POST OPERATIVE VISIT Patient Name: Roxana Andersen Date of : 1950 Date of Visit: 12/07/2017 PROCEDURE: 10/17/2017 OPEN RESECTION ABDOMINOPERINEAL and Vertical rectus abdominus flap, closure ofperineum, vaginal wall reconstruction, complex abdominal wall closure CHIEF COMPLAINT: Small wound of the perineum HISTORY OF PRESENT ILLNESS Roxana Andersen is 7 weeks from her APR. She presents today for follow-up. She reports that she has been doing very well. She is sitting and driving with no complaints. There is a small wound present at the most distal aspect of the flap. She denies any fevers or chills. She has no other concerns. She has the feeling of thickening and pressure at her perineum from the bulky soft tissue but no evidence of pain. PHYSICAL EXAM The patient is well appearing, well-groomed, alert and oriented x3, and in no apparent distress. Extraocular motions are intact. The patient has good dentition, no prominent lymphadenopathy and equalchest rise. Pulses are equal bilaterally. The patient has an intact abdominal incision that has healed. There is no evidence of open wounds. There is good contour. Her ostomy appliance is intact. Herperineum demonstrates a small wound of 1 by 1-1/2 cm with a depth of 1-1/2 cm. There is healthy granulation tissue present. There is no evidence of any further open wounds. REVIEW OF IMAGING None ASSESSMENT VRAM reconstruction after APR PLAN Roxana Andersen is doing very well. I would like to see her back in 3 months. She will continue packing her perineal wound. She will call with any concerns or questions. She will see her peanut cleaner regarding estrogen cream and annual speculum exams. All of her questions were answered. Clarita Villa MD FACS finance associate Chief, Section of Hand Surgery Shovel Logger, Hand, Nerve and Microsurgery Fellowship Division of Plastic and Reconstructive Surgery [facility] Ph. [phone] 12/07/2017 documented in this encounter Plan of Treatment Not on file documented as of this encounter Visit Diagnoses Diagnosis Anal cancer (CMS/HCC) (HCC)- Primary Malignant neoplasm of anus, unspecified site documented in this encounter Care Teams Automatic Trimming Sewer Relationship Specialty Start Date End Date Heron Ricci DO PCP - General 04/19/16 Ignacio Canela MD Consulting Physician Radiation Oncology 08/12/17 2 documented as of this encounter
--- OUTSIDE RECORDS SUMMARY | 2024-02-28 09:02 | XMS_ITS | Encounter Summary ---
Author Organization [facility] Address [address] [place] [address] Phone Care Team Providers Care Brine Room Laborer Name Role Phone Heron Ricci DO Primary Care Provider [phone] Ignacio Canela MD Unavailable [phone] Reason for Visit * Reason Onset Date Comments PET instructions 10/11/2019 Encounter Details Date Type Department Care Team (Late st Contact Info) Description 10/11/2019 Telephone [facility] Surgery [address] [facility] [address] [place] [address] Jazzmine Hernandez, [facility] PET instructions Social History Tobacco Use Types Packs/Day Years Used Date Smoking Tobacco: Former Cigarettes 1 45 1 966 - 2010 Smokeless Tobacco: Never Alcohol Use Standard Drinks/Week Comments Not Currently 5 (1 standard drink = 0.6 oz pur e alcohol) Comments No Sex and Gender Information Value Date Recorded Sex Assigned at Not on file 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 The medical records received by Mitzi do not support need for PET. The order can be approved if the following is true: If under first cancer treatment or if under active cancer treatment. Contact Mitzi with more information at phone Mitzi [phone] Opt 4 Case [id number] Please look in her EPIC referral for more information. In previous call note there is an option to change PET to CT. DANIELITO is in clinic today, PET is scheduled for tomorrow. * Telephone Encounter - Jazzmine Hernandez RMA - 10/11/2019 11:26 AM CDT *rescheduled for 10/30 at [facility]. She will need to arrive by 1030. Patient is scheduled for a PET on Monday 10/16 at [facility]. She will need to arrive by 1000. Discussed PET instructions: Day before test: Eat a low carb diet. Limit bread, pasta, potatoes, cereals, rice, deserts, candy and sugar. Eat foods high in protein and fats, like meat, cheese, eaggs, and yougurt. Day of test: Do not eat anything for at least 6 hours prior to test. This includes hard candy, gum,or drinks with sugar. Drink lots of plain water on the day of testing. Wear comfortable clothes, avoid clothes with metal (snaps, buttons or zippers). If PET is not approved, we will order a CT Chest/Abd/Pel. documented in this encounter Plan of Treatment Not on file documented as of this encounter Visit Diagnoses Not on filedocumented in this encounter Care Teams Brine Room Laborer Relationship Specialty Start Date End Date Heron Ricci DO PCP - General 04/19/16 Ignacio Canela MD Consulting Physician Radiation Oncology 08/12/17 2 documented as of this encounter
--- OUTSIDE RECORDS SUMMARY | 2024-02-28 09:02 | XMS_ITS | Encounter Summary ---
Author Organization [facility] Address [address] [place] [address] Phone Care Team Providers Care Mail Sorter Name Role Phone Heron Ricci DO Primary Care Provider [phone] Ignacio Canela MD Unavailable [phone] Reason for Visit * Reason Comments Ostomy Care * Consultation (Routine) - Closed Specialty Diagnoses / Procedures Referred By Emilia t Referred To Contact Colon and Rectal Surgery Diagnoses Ostomy marking/education Procedures RETURN [facility] Surgery [address] [facility] 2nd [address] [place] [address] Phone: tel: [place]: [place] [address] [place] [address] Phone: tel: fax: Referral ID Status Reason Start Date Expiration Date Visits Re quested Visits Authorized [id number] Closed 10/06/2017 02/27/2018 12 12 Encounter Details Date Type Department Care Team (Late st Contact Info) Description 11/17/2017 12:30 PM CDT Office Visit [facility] Surgery [address] [facility] [address] [facility] 2nd [address] [place] [address] [place] [address] [place] [address] Colostomy care ([facility]) (Primary Dx) Social History Tobacco Use Types Packs/Day Years Used Date Smoking Tobacco: Former Cigarettes 1 45 1 966 - 2011 Smokeless Tobacco: Never Alcohol Use Standard Drinks/Week Comments Yes 5 (1 standard drink = 0.6 oz pur e alcohol) Comments No Sex and Gender Information Value Date Recorded Sex Assigned at Not on file 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 Gender Identity Not on file Sexual Orientation Not on file documented as of this encounter Last Filed Vital Signs Vital Sign Reading Time Taken Comments Blood Pressure 138/86 11/17/2017 11:55 AM CDT Pulse 94 11/17/2017 11:55 AM CDT Temperature 36.7 ??C (98.1 ??F) 11/17/2017 1 1:55 AM CDT Respiratory Rate - - Oxygen Saturation 97% 11/17/2017 11: 55 AM CDT Inhaled Oxygen Concentration - - Weight 75.6 kg (166 lb 11.2 oz) 018 11:55 AM CDT Height - - Body Mass Index 30.49 10/17/2017 6:35 PM CDT documented in this encounter Progress Notes * Bonny Aranda NP - 11/17/2017 12:30 PM CDT Ostomy Assessment Patient has colostomy in [facility]. Stoma is pink, moist and brooked - deep crease Output is soft and formed Recommendations for pouching: Coloplast # [id number] [place] # [id number] [place] # [id number] [place] # [phone] x 2 Coloplast # [id number] [place] # [id number] Peristomal skin assessment: candidiasis, maceration and excoriation is present. Nystatin powder Education provided which included: supplies . bathing, activity, clothing, skin care, follow-up and patient concerns. Recommend return as needed for additional care. Samples x 6 provided to patient. Spouse will assistwith pouching - recommend lying flat rather than standing. 30 minutes spent with patient and spouse, of which 20 minutes was spent counseling patient on ostomy and skin care. documented in this encounter Plan of Treatment Not on file documented as of this encounter Visit Diagnoses Diagnosis Colostomy care ([facility])- Primary Attention to colostomy documented in this encounter Care Teams Mail Sorter Relationship Specialty Start Date End Date Heron Ricci DO PCP - General 04/19/16 Ignacio Canela MD Consulting Physician Radiation Oncology 08/12/17 2 documented as of this encounter
--- OUTSIDE RECORDS SUMMARY | 2024-02-28 09:02 | XMS_ITS | Encounter Summary ---
Author Organization [facility] Address [address] [facility] [address] [place] [address] Phone Care Team Providers Care Lube Attendant Name Role Phone Heron Ricci DO Primary Care Provider [phone] Ignacio Canela MD Unavailable Reason for Visit * Consultation (Routine) - Closed Specialty Diagnoses / Procedures Referred By Emilia berkowitz Referred To Contact General Surgery / Colon and Rectal Surgery Diagnoses POV VISIT Procedures POSTOPERATIVE VISIT Referral, Self Talon Steele MD [address] [facility] [phone] [place] [address] Phone: tel: fax: Referral ID Status Reason Start Date Expiration Date V isits Requested Visits Authorized [id number] Closed Specialty Services Required 11/01/2017 02/27/2019 1 1 Encounter Details Date Type Department Care Team (Late st Contact Info) Description 11/01/2017 11:00 AM CDT Office Visit [facility] Surgery [address] [place] [address] Talon Steele MD [address] [facility] [phone] [place] [address] History of anal cancer (Primary Dx) Social [...] on file 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 Gender Identity Not on file Sexual Orientation Not on file documented as of this encounter Last Filed Vital Signs Vital Sign Reading Time Taken Comments Blood Pressure 146/90 11/01/2017 9:59 AM CDT Pulse 101 11/01/2017 9:59 AM CDT Temperature 36.4 ??C (97.6 ??F) 11/01/2017 9:59 AM CD T Respiratory Rate 16 11/01/2017 9:59 AM CDT Oxygen Saturation 96% 11/01/2017 9:59 AM CDT Inhaled Oxygen Concentration - - Weight 76.7 kg (169 lb) 11/01/2017 9:59 AM CDT Height - - Body Mass Index 30.91 10/17/2017 6:35 PM CDT documented in this encounter Progress Notes * Talon Steele MD - 11/01/2017 11:00 AM CDT Colorectal Surgery Clinic Visit Chief Complaint: Roxana Andersen is a 67 y.o. female with chief complaint of No chief complaint on file. HPI: 67-year-old woman who is 2 weeks status post abdominal perineal resection and posterior vaginectomy with vram reconstruction of her perineum. Path revealed negative margins and no adenopathy. She is doing remarkably well and managing her stoma without difficulty, appetite is slowly improving, and energy is doing well. She has no significant pain or other complaints. Past Medical History: Diagnosis Date ??? Anal [...] EXPLORATORY LAPAROTOMY ??? INTRACRANIAL ANEURYSM REPAIR coiling 2006 ??? MASTOPEXY ??? RECTAL BIOPSY ??? TUBAL LIGATION (Not in a hospital admission) Allergies Allergen Reactions ??? Sulfa (Sulfonamide Antibiotics) Anaphylaxis ??? Codeine Nausea only Reaction: NAUSEA, Social History Substance Use Topics ??? Smoking status: Former Smoker Packs/day: 1.00 Types: Cigarettes Start date: 1965 Quit date: 2010 ??? Smokeless tobacco: Never Used ??? Alcohol use 3.0 oz/week 5 Standard drinks or equivalent per week [...] HPI and scanned media. Vitals: Vitals BP 146/90 Pulse 101 Temp 36.4 ??C (97.6 ??F) Resp 16 Wt 76.7 kg (169 lb) SpO2 96% BMI 30.91 kg/m?? Physical exam: GENERAL EXAM Appearance - well developed, well nourished Orientation - alert and oriented x 3 Eyes - anicteric Ears, mouth and nose: Normal Neurologic: Non-focal motor function Pulmonary: Non-labored breathing, no audible wheezing Integumentary: No rashes Musculoskeletal: No gross bony deformities Abdomen -- Soft nontender, nondistended, no masses. Midline incision well healed, dotty removed.Left lower quadrant colostomy pink and functioning Perineum--flap pink viable with some minimal separation circumferentially around the flap. Assessment: Roxana Andersen is a 67 y.o. female with history of anal cancer Plan: Follow up with Dr. Villa today as scheduled Return to clinic in 2 months. Talon Steele MD 11/01/2017 10:29 AM documented in this encounter Plan of Treatment Not on file documented as of this encounter Visit Diagnoses Diagnosis History of anal cancer- Primary documented in this encounter Care Teams Lube Attendant Relationship Specialty Start Date End Date Heron Ricci DO PCP - General 04/19/16 Ignacio Canela MD Consulting Physician Radiation Oncology 08/12/17 2 documented as of this encounter
--- OUTSIDE RECORDS SUMMARY | 2024-02-28 09:02 | XMS_ITS | Encounter Summary ---
Author Organization [facility] Address [address] [facility] [address] [place] [address] Phone Care Team Providers Care Validation Analyst Name Role Phone Heron Ricci DO Primary Care Provider [phone] Ignacio Canela MD Unavailable [phone] Reason for Visit * Reason Comments Anal Cancer * Consultation (Routine) - Closed Specialty Diagnoses / Procedures Referred By Contac t Referred To Contact Surgery / Colon and Rectal Surgery Diagnoses Anal cancer (CMS/HCC) (HCC) Heron Ricci DO Phone: tel: fax: Referral ID Status Reason Start Date Expiration Date V isits Requested Visits Authorized [id number] Closed Specialty Services Required 05/03/2018 05/03/2019 6 6 Encounter Details Date Type Department Care Team (Late st Contact Info) Description 02/13/2019 8:45 AM LEAD JAVA PROGRAMMER Office Visit [facility] Surgery [address] [place] [address] Talon Steele MD [address] [facility] [phone] [place] [address] Colostomy care (CMS/HCC) (Primary Dx); History of anal cancer Social [...] on file Legal Sex Female 8:43 AM LEAD JAVA PROGRAMMER Gender Identity Not on file Sexual Orientation Not on file documented as of this encounter Last Filed Vital Signs Vital Sign Reading Time Taken Comments Blood Pressure 144/83 02/13/2019 8:40 AM LEAD JAVA PROGRAMMER Pulse 86 02/13/2019 8:40 AM LEAD JAVA PROGRAMMER Temperature 36.9 ??C (98.4 ??F) 02/13/2019 8 :40 AM LEAD JAVA PROGRAMMER Respiratory Rate 14 02/13/2019 8:40 AM LEAD JAVA PROGRAMMER Oxygen Saturation 87% 02/13/2019 8:4 0 AM LEAD JAVA PROGRAMMER went up to 92% after sitting Inhaled Oxygen Concentration - - Weight 79.3 kg (174 lb 14.4 oz) 02/13/2019 8:40 AM LEAD JAVA PROGRAMMER Height - - Body Mass Index 31.98 11/24/2017 2:09 PM CDT documented in this encounter Progress Notes * Talon Steele MD - 02/13/2019 8:45 AM CST Colorectal Surgery Clinic Visit Chief Complaint: Roxana Andersen is a 68 y.o. female with chief complaint of Anal Cancer HPI: 68-year-old woman is 1 year status post abdominal peroneal resection with vram flap pelvic reconstruction for anal cancer. She continues to do well. She is managing her stoma great she is eatingwell and she has no abdominal pain nausea vomiting or other complaints. She had a PET scan in September, which I personally reviewed the images which demonstrates no evidence of any recurrent or metastatic disease. Past Medical History: Diagnosis Date [...] acetaminophen (TYLENOL EXTRA STRENGTH) 500 mg tablet budesonide-formoterol (SYMBICORT) 80-4.5 mcg/actuation inhaler hydroCHLOROthiazide (HYDRODIURIL) 25 mg tablet losartan (COZAAR) 100 mg tablet multivitamin capsule naproxen (ALEVE) 220 mg tablet nystatin powder omega 1-vmp-ouk-fish oil 300-1,000 mg capsule oxyCODONE (ROXICODONE) 5 mg immediate release tablet VENTOLIN HFA 90 mcg/actuation inhaler vitamin E 400 unit capsule amLODIPine (NORVASC) 10 mg tablet aspirin 81 mg chewable tablet bacitracin-polymyxin B (POLYSPORIN) ointment Allergies Allergen Reactions ??? Sulfa (Sulfonamide Antibiotics) Anaphylaxis ??? Codeine Nausea only and Nausea And Vomiting Reaction: NAUSEA, Social History Tobacco Use ??? Smoking status: Former Smoker Packs/day: 1.00 Types: Cigarettes Start date: 1965 Last attempt to quit: 2011 Years since quittin.9 ??? Smokeless tobacco: [...] HPI and scanned media. Vitals: Vitals BP 144/83 Pulse 86 Temp 36.9 ??C (98.4 ??F) Resp 14 Wt 79.3 kg (174 lb 14.4 oz) SpO2 (!) 87% BMI 31.98 kg/m?? Physical exam: GENERAL EXAM Appearance - [...] quadrant colostomy is pink viable and functioning Perineum. Wounds and flap are well healed and look great. Assessment: Roxana Andersen is a 68 y.o. female with history of anal cancer Plan: Return to clinic in 3 months Talon Steele MD 02/13/2019 8:45 AM JAVA PROGRAMMER documented in this encounter Plan of Treatment Not on file documented as of this encounter Visit Diagnoses Diagnosis Colostomy care (HCC)- Primary Attention to colostomy History of anal cancer documented in this encounter Care Teams Validation Analyst Relationship Specialty Start Date End Date Heron Ricci DO PCP - General 04/19/16 Ignacio Canela MD Consulting Physician Radiation Oncology 08/12/17 2 documented as of this encounter
--- OUTSIDE RECORDS SUMMARY | 2024-02-28 09:02 | XMS_ITS | Encounter Summary ---
Author Organization [facility] Address [address] [place] [address] Phone Care Team Providers Care Bi Lead Name Role Phone Heron Ricci DO Primary Care Provider [phone] Ignacio Canela MD Unavailable [phone] Encounter Details Date Type Department Care Team (Late st Contact Info) Description 11/18/2017 Telephone [facility] Surgery [address] [facility] 2nd Floor [address] [place] [address] [place] [address] [place] [address] Social History Tobacco Use Types Packs/Day Years Used Date Smoking Tobacco: Former Cigarettes 1 45 1 966 - 2010 Smokeless Tobacco: Never Alcohol Use Standard Drinks/Week Comments Yes 5 (1 standard drink = 0.6 oz pur e alcohol) Comments No Sex and Gender Information Value Date Recorded Sex Assigned at Not on file Legal Sex Female 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 It lasted overnight and then failed this am after a BM. They will try using 2 oval convex rings and paste. Call Tuesday with update. documented in this encounter Plan of Treatment Not on file documented as of this encounter Visit Diagnoses Not on filedocumented in this encounter Care Teams Bi Lead Relationship Specialty Start Date End Date Heron Ricci DO PCP - General 04/19/16 Ignacio Canela MD Consulting Physician Radiation Oncology 08/12/17 2 documented as of this encounter
--- OUTSIDE RECORDS SUMMARY | 2024-02-28 09:02 | XMS_ITS | Encounter Summary ---
Author Organization [facility] Address [address] [place] [address] Phone Care Team Providers Care Shutdown Coordinator Name Role Phone Heron Ricci DO Primary Care Provider [phone] Ignacio Canela MD Unavailable [phone] Encounter Details Date Type Department Care Team (Late st Contact Info) Description 11/17/2017 Orders Only [facility] Surgery [address] [place] [address] [place] [address] [place] [address] Social History Tobacco Use Types Packs/Day Years Used Date Smoking Tobacco: Former Cigarettes 1 45 1 966 - 2010 Smokeless Tobacco: Never Alcohol Use Standard Drinks/Week Comments Yes 5 (1 standard drink = 0.6 oz pur e alcohol) Comments No Sex and Gender Information Value Date Recorded Sex Assigned at Not on file Legal Sex Female 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 MANAGER 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 Gender Identity Not on file Sexual Orientation Not on file documented as of this encounter Ordered Prescriptions Prescription Sig Dispense Quantity Refills Last Filled Start Date End Date nystatin powder Apply to affected area with pouch changes 30 g 1 11/17/2017 documented in this encounter Plan of Treatment Not on file documented as of this encounter Visit Diagnoses Not on filedocumented in this encounter Care Teams Shutdown Coordinator Relationship Specialty Start Date End Date Heron Ricci DO PCP - General 04/19/16 Ignacio Canela MD Consulting Physician Radiation Oncology 08/12/17 2 documented as of this encounter
--- OUTSIDE RECORDS SUMMARY | 2024-02-28 09:02 | XMS_ITS | Encounter Summary ---
Author Organization [facility] Address [address] [place] [address] Care Team Providers Care Open Hearth Door Liner Name Role Phone Heron Ricci DO Primary Care Provider [phone] Ignacio Canela MD Unavailable [phone] Reason for Referral * Diagnostic Imaging (Routine) - Closed Specialty Diagnoses / Procedures Referred By Emilia berkowitz Referred To Contact Radiology Diagnoses History of anal cancer Procedures CT Chest Abdomen Pelvis W Contrast Talon Steele MD Phone: tel: fax: [facility] Referral ID Status Reason Start Date Expiration Date Visits Re quested Visits Authorized [id number] Closed 10/17/2019 11/15/2020 1 1 Reason for Visit * Diagnostic Imaging (Routine) - Closed Specialty Diagnoses / Procedures Referred By Emilia berkowitz Referred To Contact Radiology Diagnoses History of anal cancer Procedures CT Chest Abdomen Pelvis W Contrast Talon Steele MD Phone: tel: fax: [facility] Referral ID Status Reason Start Date Expiration Date Visits Re quested Visits Authorized [id number] Closed 10/17/2019 11/15/2020 1 1 Encounter Details Date Type Department Care Team (Latest Contact Info) Description 10/31/2019 9:17 AM CDT - 10/31/2019 11:59 PM CDT Hospital Encounter [facility] [address] [place] [address] Talon Steele MD [address] [phone] [place] [address] History of anal cancer Discharge Disposition: Discharge [...] on file 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 Gender Identity Not on file Sexual Orientation Not on file documented as of this encounter Medications at Time of Discharge multivitamin capsule Take 1 capsule by mouth 2 (two) times a week naproxen (ALEVE) 220 mg tablet Take 1 tablet (220 mg total) by mouth every 12 (twelve) hours as needed nystatin powder Apply to affected area with pouch changes 30 g 1 11/17/2017 omega 4-thi-hvx-fish oil 300-1,000 mg capsule Take 1 capsule by mouth 2 (two) times a week 05/17/2012 VENTOLIN HFA 90 mcg/actuation inhaler Inhale 2 puffs as needed 09/12/2017 vitamin E 400 unit capsule Take 1 [...] (two) times a day as needed 4 hydroCHLOROthiaz dave (HYDRODIURIL) 25 mg tabletIndication [...] CONTRAST Schedule Routine, Read Routine (OP Routine) 10/31/2019 10:17 AM CDT History of anal cancer POCT CREATININE - DEVICE Routine 10/31/2019 9:56 AM CDT documented in this encounter Results * CT Chest Abdomen Pelvis W Contrast (10/31/2019 10:17 AM CDT) Anatomical Region Laterality Modality Body N/A Computed Tomogra phy 10/31/2019 10:4 9 AM CDT Impressions 10/31/2019 10:49 AM CDT 1. ??Stable postsurgical changes of APR with a left lower quadrant colostomy. 2. ??No CT evidence of metastatic disease in the chest, abdomen or pelvis. Dictated by: Adrien Frederick M.D. The radiology attending physician has personally reviewed this study, and had reviewed and/or edited this written report and agrees with it. Electronically signed by: Raul Calvillo M.D. Narrative 10/31/2019 10:49 AM CDT EXAMINATION: ??Computed tomography of the chest, abdomen and pelvis with intravenous contrast HISTORY: Anal cancer. TECHNIQUE: ??Transaxial computed tomographic images of the chest, abdomen and pelvis ??were obtained with intravenous contrast according to the standard protocol after the uneventful administration of 100 mL Opti-Ray 350 intravenous contrast. COMPARISON: FDG PET/CT on 10/25/2018; CT of the abdomen and pelvis with intravenous contrast on 04/04/2017. FINDINGS: ?? Chest: Multiple subcentimeter thyroid nodules are noted. ??Bilateral breast implants are noted. No suspicious supraclavicular, axillary, mediastinal or hilar lymphadenopathy. Heart is normal in size without pericardial effusion. Atherosclerotic calcifications of the aorta and coronary arteries are again noted. Background of emphysema. Scarring in the upper lobes. No pulmonary edema or pneumonia. ??No pleural effusion or pneumothorax. No suspicious pulmonary nodules. ?? Abdomen/Pelvis: The liver remains slightly atrophied. ??No focal lesion. ??The gallbladder, spleen and pancreas are normal. There is no intrahepatic or extrahepatic biliary ductal dilation. The adrenal glands and kidneys are normal. ??No hydronephrosis. Redemonstrated are postsurgical changes related to APR with a left lower quadrant colostomy. ??No evidence of bowel obstruction. No suspicious lymphadenopathy in the abdomen or pelvis. Urinary bladder is normal. ??Calcified fibroids noted within the uterus. ??Stable right adnexal cyst with associated calcification. Atherosclerotic calcifications of the aorta and its branch vessels are again noted. Bone windows redemonstrate grade 1 anterolisthesis of L3 on L4. ??No suspicious lytic or blastic lesions. Procedure Note Raul Calvillo MD - 10/31/2019 EXAMINATION: Computed tomography of the chest, abdomen and pelvis with intravenous contrast HISTORY: Anal cancer. TECHNIQUE: Transaxial computed tomographic images of the chest, abdomen and pelvis were obtained with intravenous contrast according to the standard protocol after the uneventful administration of 100 mL Opti-Ray 350 intravenous contrast. COMPARISON: FDG PET/CT on 10/25/2018; CT of the abdomen and pelvis with intravenous contrast on 04/04/2017. FINDINGS: Chest: Multiple subcentimeter thyroid nodules are noted. Bilateral breast implants are noted. No suspicious supraclavicular, axillary, mediastinal or hilar lymphadenopathy. Heart is normal in size without pericardial effusion. Atherosclerotic calcifications of the aorta and coronary arteries are again noted. Background of emphysema. Scarring in the upper lobes. No pulmonary edema or pneumonia. No pleural effusion or pneumothorax. No suspicious pulmonary nodules. Abdomen/Pelvis: The liver remains slightly atrophied. No focal lesion. The gallbladder, spleen and pancreas are normal. There is no intrahepatic or extrahepatic biliary ductal dilation. The adrenal glands and kidneys are normal. No hydronephrosis. Redemonstrated are postsurgical changes related to APR with a left lower quadrant colostomy. No evidence of bowel obstruction. No suspicious lymphadenopathy in the abdomen or pelvis. Urinary bladder is normal. Calcified fibroids noted within the uterus. Stable right adnexal cyst with associated calcification. Atherosclerotic calcifications of the aorta and its branch vessels are again noted. Bone windows redemonstrate grade 1 anterolisthesis of L3 on L4. No suspicious lytic or blastic lesions. IMPRESSION: 1. Stable postsurgical changes of APR with a left lower quadrant colostomy. 2. No CT evidence of metastatic disease in the chest, abdomen or pelvis. Dictated by: Adrien Frederick M.D. The radiology attending physician has personally reviewed this study, and had reviewed and/or edited this written report and agrees with it. Electronically signed by: Raul Calvillo M.D. Talon Steele MD IMG CT PROCEDURES Final Resu lt * POCT creatinine (10/31/2019 9:56 AM CDT) Creatinine POC 0.7 0.6 - 1.1 mg/dL ARVIND SUE Blood specimen (specimen) 10/31/2019 9:56 AM CDT 10/31/2019 9:56 AM CDT Talon Steele MD LAB POCT ORDERABLES - DEVICE Final Result [facility] Department of Laboratories [place], [place] [id number] documented in this encounter Visit Diagnoses Diagnosis History of anal cancer documented in this encounter Administered Medications Inactive Administered Medications - up to 3 most recent administrations Medication Order MAR Action Action Date Dose Rate Site ioversoL (OPTIRAY 350) syringe syringe 100 mL 100 mL, intravenous, Once in imaging, contrast, Starting on Tue10/31/19 at 1002, For 1 dose Given 10/31/2019 10:06 AM CDT 100 mL documented in this encounter Orders Medications Ordered That Omari ht Not Have Been Administered Count Last Ordered Date First Ordered Date ioversoL (OPTIRAY 350) syrin ge syringe 100 mL 1 10/31/2019 documented in this encounter Care Teams Open Hearth Door Liner Relationship Specialty Start Date End Date Heron Ricci DO PCP - General 04/19/16 Ignacio Canela MD Consulting Physician Radiation Oncology 08/12/17 2 documented as of this encounter
--- OUTSIDE RECORDS SUMMARY | 2024-02-28 09:02 | XMS_ITS | Encounter Summary ---
Author Organization [facility] Address [address] [facility] [address] [place] [address] Phone Care Team Providers Care Grinder Hand Name Role Phone Heron Ricci DO Primary Care Provider [phone]- [phone] Ignacio Canela MD Unavailable [phone] Reason for Visit * Reason Comments Anal Cancer * Consultation (Routine) - Closed Specialty Diagnoses / Procedures Referred By Contac t Referred To Contact Surgery / Colon and Rectal Surgery Diagnoses Anal cancer (CMS/HCC) (HCC) Heron Ricci DO Phone: tel: fax: Referral ID Status Reason Start Date Expiration Date V isits Requested Visits Authorized [id number] Closed Specialty Services Required 05/03/2018 05/03/2019 6 6 Encounter Details Date Type Department Care Team (Late st Contact Info) Description 08/22/2018 8:45 AM CDT Office Visit [facility] Surgery [address] [place] [address] Talon Steele MD [address] [facility] [phone] [place] [address] History of anal cancer (Primary Dx); Colostomy care (CMS/HCC) Social History Tobacco Use Types Packs/Day Years Used Date Smoking Tobacco: Former Cigarettes 1 45 1 966 - 2010 Smokeless Tobacco: Never Alcohol Use Standard Drinks/Week Comments Yes 5 (1 standard drink = 0.6 oz pur e alcohol) Comments No Sex and Gender Information Value Date Recorded Sex Assigned at Not on file 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 Gender Identity Not on file Sexual Orientation Not on file documented as of this encounter Last Filed Vital Signs Vital Sign Reading Time Taken Comments Blood Pressure 120/74 08/22/2018 8:37 AM CDT Pulse 95 08/22/2018 8:37 AM CDT Temperature 36.8 ??C (98.2 ??F) 08/22/2018 8:37 AM CD T Respiratory Rate 16 08/22/2018 8:37 AM CDT Oxygen Saturation 92% 08/22/2018 8:37 AM CDT Inhaled Oxygen Concentration - - Weight 78.5 kg (173 lb) 08/22/2018 8:37 AM CDT Height - - Body Mass Index 31.63 11/24/2017 2:09 PM CDT documented in this encounter Progress Notes * Talon Steele MD - 08/22/2018 8:45 AM CDT Colorectal Surgery Clinic Visit Chief Complaint: Roxana Andersen is a 68 y.o. female with chief complaint of Anal Cancer HPI: 68-year-old woman is 9 months status post APR with pelvic reconstruction for anal cancer. She continues to do well with good stoma output. She is managing her stoma well she has no abdominal pain, anal pain or bleeding. She did notice a lump in her breast that was fully evaluated in was found be benign. Past Medical History: Diagnosis Date ??? Anal [...] Start date: 1965 Last attempt to quit: 2010 Years since quittin.4 ??? Smokeless tobacco: Never Used Substance Use Topics ??? Alcohol use: Yes Alcohol/week: 3.0 oz Types: 5 Standard drinks or equivalent per week Family History Problem Relation Age of Onset ??? Heart disease Father Heart Disease - (Added by [employer] Conv) ??? Diabetes Other Diabetes Mellitus - (Added by [employer] Conv) ??? Cancer Other Cancer - (Added by [employer] Conv) ??? Breast cancer Mother Breast Cancer - (Added by [employer] Conv) ??? Colon polyps Mother ??? Bladder Cancer Brother Family history of bladder cancer - (Added by [employer] Conv) Review of Systems: All systems are negative except as per HPI and scanned media. Vitals: Vitals BP 120/74 Pulse 95 Temp 36.8 ??C (98.2 ??F) Resp 16 Wt 78.5 kg (173 lb) SpO2 92% BMI 31.63 kg/m?? Physical exam: GENERAL EXAM Appearance - well developed, well nourished Orientation - alert and oriented x 3 Eyes - anicteric Ears, mouth and nose: Normal Neurologic: Non-focal motor function Pulmonary: Non-labored breathing, no audible wheezing Integumentary: No rashes Musculoskeletal: No gross bony deformities Abdomen -- Soft nontender, nondistended, no masses. Midline incision is well healed with no hernia.Left lower quadrant colostomy pink viable and functioning Perineum--wound is well-healed flap is pink and viable. No masses. Assessment: Roxana Andersen is a 68 y.o. female with history of anal cancer Plan: Will arrange for a PET scan in 3 months. Return to clinic in 6 months. Talon Steele MD 08/22/2018 8:44 AM documented in this encounter Plan of Treatment Not on file documented as of this encounter Visit Diagnoses Diagnosis History of anal cancer- Primary Colostomy care (HCC) Attention to colostomy documented in this encounter Care Teams Grinder Hand Relationship Specialty Start Date End Date Heron Ricci DO PCP - General 04/19/16 Ignacio Canela MD Consulting Physician Radiation Oncology 08/12/17 2 documented as of this encounter
--- OUTSIDE RECORDS SUMMARY | 2024-02-28 09:02 | XMS_ITS | Encounter Summary ---
Author Organization [facility] Address [address] [facility] [address] [place] [address] Phone Care Team Providers Care Junior Legal Secretary Name Role Phone Heron Ricci DO Primary Care Provider [phone] Ignacio Canela MD Unavailable [phone] Reason for Visit * Reason Comments History of anal cancer Encounter Details Date Type Department Care Team (Late st Contact Info) Description 01/03/2018 9:15 AM LINE STAKER Office Visit [facility] Surgery [address] [place] [address] Talon Steele MD [address] [facility] [phone] [place] [address] History of anal cancer (Primary Dx) Social [...] on file 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 Gender Identity Not on file Sexual Orientation Not on file documented as of this encounter Last Filed Vital Signs Vital Sign Reading Time Taken Comments Blood Pressure 145/81 01/03/2018 9:10 AM LINE STAKER Pulse 86 01/03/2018 9:10 AM LINE STAKER Temperature 37 ??C (98.6 ??F) 01/03/2018 9:10 AM LINE STAKER Respiratory Rate 18 01/03/2018 9:10 AM LINE STAKER Oxygen Saturation 94% 01/03/2018 9:10 AM LINE STAKER Inhaled Oxygen Concentration - - Weight 77.2 kg (170 lb 3.2 oz) 01/03/2018 9:10 A M LINE STAKER Height - - Body Mass Index 31.12 11/24/2017 2:09 PM CDT documented in this encounter Progress Notes * Talon Steele MD - 01/03/2018 9:15 AM CST Colorectal Surgery Clinic Visit Chief Complaint: Roxana Andersen is a 67 y.o. female with chief complaint of History of anal cancer HPI: 67-year-old woman is 2-1/2 months status post APR with pelvic reconstruction with AV darinel for persistent anal cancer. She is doing great has no restrictions in activities has no pain. She is managing her stoma reasonably well, has a good appetite and has no complaints. Past Medical History: Diagnosis Date ??? [...] Nausea And Vomiting Reaction: NAUSEA, Social History Substance Use Topics [...] HPI and scanned media. Vitals: Vitals BP 145/81 Pulse 86 Temp 37 ??C (98.6 ??F) Resp 18 Wt 77.2 kg (170 lb 3.2 oz) SpO2 94% BMI 31.12 kg/m?? Physical exam: GENERAL EXAM Appearance - well developed, well nourished Orientation - alert and oriented x 3 Eyes - anicteric Ears, mouth and nose: Normal Neurologic: Non-focal motor function Pulmonary: Non-labored breathing, no audible wheezing Integumentary: No rashes Musculoskeletal: No gross bony deformities Abdomen -- Soft nontender, nondistended, no masses midline incision is well healed. Left lower quadrant colostomy is pink viable and functioning Perineum--flap is well healed pink and perfused well perfused Assessment: Roxana Andersen is a 67 y.o. female with history of anal cancer Plan: Return to clinic in 3 months. Talon Steele MD 01/03/2018 9:27 AM STAKER documented in this encounter Plan of Treatment Not on file documented as of this encounter Visit Diagnoses Diagnosis History of anal cancer- Primary documented in this encounter Care Teams Junior Legal Secretary Relationship Specialty Start Date End Date Heron Ricci DO PCP - General 04/19/16 Ignacio Canela MD Consulting Physician Radiation Oncology 08/12/17 2 documented as of this encounter
--- OUTSIDE RECORDS SUMMARY | 2024-02-28 09:02 | XMS_ITS | Encounter Summary ---
Author Organization [facility] Address [address] [place] [address] Phone Care Team Providers Care Sales Marketing Director Name Role Phone Heron Ricci DO Primary Care Provider +- [phone] Ignacio Canela MD Unavailable [phone] Encounter Details Date Type Department Care Team (Late st Contact Info) Description 11/01/[address] 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 30 g 1 11/01/2017 9 documented in this encounter Plan of Treatment Not on file documented as of this encounter Visit Diagnoses Not on filedocumented in this encounter Care Teams Sales Marketing Director Relationship Specialty Start Date End Date Heron Ricci DO PCP - General 04/19/16 Ignacio Canela MD Consulting Physician Radiation Oncology 08/12/17 2 documented as of this encounter
--- OUTSIDE RECORDS SUMMARY | 2024-02-28 09:02 | XMS_ITS | Encounter Summary ---
Author Organization [facility] Address [address] 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) Procedures PET/CT FDG Skull to Thigh Talon Steele MD Phone: tel: fax: [facility] Referral ID Status Reason Start Date Expiration Date Visits Re quested Visits Authorized [id number] Closed 09/07/2018 01/16/2019 2 2 Encounter Details Date Type Department Care Team (Late st Contact Info) Description 09/07/2018 Orders Only [facility] Surgery [address] [place] [address] Talon Steele MD [address] [facility] [phone] [place] [address] Anal cancer (CMS/HCC) (Primary Dx); Squamous cell carcinoma of anal canal (CMS/HCC) Social History Tobacco Use Types Packs/Day Years Used Date Smoking Tobacco: Former Cigarettes 1 45 1 966 - 2010 Smokeless Tobacco: Never Alcohol Use Standard Drinks/Week Comments Yes 5 (1 standard drink = 0.6 oz pur e alcohol) Comments No Sex and Gender Information Value Date Recorded Sex Assigned at Not on file 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 Electronically signed by: Delvis Mak M.D., Ph.D. Narrative 10/25/2018 1:06 PM CDT EXAMINATION: TUMOR FDG-PET/CT IMAGING DATE OF STUDY: ??10/25/2018 SCANNER: [facility] RADIOPHARMACEUTICAL: 15.04 mCi F-18 Fluorodeoxyglucose (FDG) i.v. Injection site: ?Left antecubital fossa HISTORY: 68-year-old female with anal cancer status post APR and pelvic reconstruction 09/2017. ??The study is requested for follow-up. Subsequent treatment strategy. TECHNIQUE: ?? The patient's fasting blood glucose level, measured by glucometer before injection of FDG, was 110 mg/dL. ??MD-Gastroview was not given orally. ??After intravenous administration of FDG, noncontrast CT images were obtained for attenuation correction and for fusion with emission PET images to allow for anatomical localization of PET findings. ??Emission PET images were then obtained. ??The study was interpreted on the [employer] workstation. ??The mean liver SUV (reported for quality control assessor purposes) is 3.4. ?? The total scanned area was skull base to the proximal thighs. ??Images of the body were obtained starting 62 minutes after injection of tracer. COMPARISON: ?FDG PET/CT 09/16/2017 FINDINGS: Postsurgical changes related to APR and pelvic reconstruction, including a left lower quadrant end colostomy. ??No definite suspicious FDG avidity to suggest recurrent or metastatic disease. ?? Mild FDG activity within the posterior aspect of the pelvic reconstruction bed, adjacent to the surgical clips, is likely posttreatment inflammation. ??Presumed mild inflammatory FDG activity along the healed ventral scar. Moderate activity at the end colostomy site is likely inflammatory; additional scattered areas of bowel [id number] FDG activity is likely physiologic or inflammatory. Small focus of mild FDG activity posterior to the right shoulder is likely degenerative inflammation; additional scattered areas of degenerative inflammation, particularly surrounding the lumbar spine and hips. Additional CT findings: Atherosclerotic calcifications, including within the coronary arteries. ??Ectasia of the infra renal aorta. Right MCA clip. ??Scarring of the lungs. ??Apical blebs. ??Right ovarian cyst with calcifications is less conspicuous on the current study. Postsurgical changes of the spine; grade 1 anterolisthesis of L3 on L4. ??Bilateral breast implants. Procedure Note Delvis Mak MD - 10/25/2018 EXAMINATION: TUMOR FDG-PET/CT IMAGING DATE OF STUDY: 10/25/2018 SCANNER: [facility] RADIOPHARMACEUTICAL: 15.04 mCi F-18 Fluorodeoxyglucose (FDG) i.v. Injection site: Left antecubital fossa HISTORY: 68-year-old female with anal cancer status post APR and pelvic reconstruction 09/2017. The study is requested for follow-up. Subsequent treatment strategy. TECHNIQUE: The patient's fasting blood glucose level, measured by glucometer before injection of FDG, was 110 mg/dL. MD-Gastroview was not given orally. After intravenous administration of FDG, noncontrast CT images were obtained for attenuation correction and for fusion with emission PET images to allow for anatomical localization of PET findings. Emission PET images were then obtained. The study was interpreted on the [employer] workstation. The mean liver SUV (reported for quality control assessor purposes) is 3.4. The total scanned area was skull base to the proximal thighs. Images of the body were obtained starting 62 minutes after injection of tracer. COMPARISON: FDG PET/CT 09/16/2017 FINDINGS: Postsurgical changes related to APR and pelvic reconstruction, including a left lower quadrant end colostomy. No definite suspicious FDG avidity to suggest recurrent or metastatic disease. Mild FDG activity within the posterior aspect of the pelvic reconstruction bed, adjacent to the surgical clips, is likely posttreatment inflammation. Presumed mild inflammatory FDG activity along the healed ventral scar. Moderate activity at the end colostomy site is likely inflammatory; additional scattered areas of bowel jczw-sy-yfrpyzvt FDG activity is likely physiologic or inflammatory. Small focus of mild FDG activity posterior to the right shoulder is likely degenerative inflammation; additional scattered areas of degenerative inflammation, particularly surrounding the lumbar spine and hips. Additional CT findings: Atherosclerotic calcifications, including within the coronary arteries. Ectasia of the infra renal aorta. Right MCA clip. Scarring of the lungs. Apical blebs. Right ovarian cyst with calcifications is less conspicuous on the current study. Postsurgical changes of the spine; grade 1 anterolisthesis of L3 on L4. Bilateral breast implants. IMPRESSION: Interval APR and pelvic reconstruction without convincing FDG evidence of recurrent or metastatic anal squamous cell carcinoma. Electronically signed by: Delvis Mak M.D., Ph.D. 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
--- OUTSIDE RECORDS SUMMARY | 2024-02-28 09:02 | XMS_ITS | Encounter Summary ---
Author Organization [facility] Address [address] [place] [address] Phone Care Team Providers Care Biomedical Equipment Support Specialist Name Role Phone Heron Ricci DO Primary Care Provider [phone] Ignacio Canela MD Unavailable [phone] Reason for Visit * Reason Onset Date Comments tariq imaging 10/17/2019 Encounter Details Date Type Department Care Team (Late st Contact Info) Description 10/17/2019 Telephone [facility] Surgery [address] [facility] [facility] [address] [place] [address] Jazzmine Hernandez RMA tariq imaging Social History Tobacco Use Types Packs/Day Years Used Date Smoking Tobacco: Former Cigarettes 1 45 1 966 - 2010 Smokeless Tobacco: Never Alcohol Use Standard Drinks/Week Comments Not Currently 5 (1 standard drink = 0.6 oz pur e alcohol) Comments No Sex and Gender Information Value Date Recorded Sex Assigned at Not on file 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 PET was denied, so CT C/A/P was scheduled. CT is scheduled for 10/30 @ 1000 with 0930 arrival to [facility] 2 hours prior. documented in this encounter Plan of Treatment Not on file documented as of this encounter Visit Diagnoses Not on filedocumented in this encounter Care Teams Biomedical Equipment Support Specialist Relationship Specialty Start Date End Date Heron Ricci DO PCP - General 04/19/16 Ignacio Canela MD Consulting Physician Radiation Oncology 08/12/17 2 documented as of this encounter
--- OUTSIDE RECORDS SUMMARY | 2024-02-28 09:02 | XMS_ITS | Encounter Summary ---
Author Organization [facility] Address [address] [facility] [address] [place] [address] Phone Care Team Providers Care Agricultural Researcher Name Role Phone Heron Ricci DO Primary Care Provider [phone] Ignacio Canela MD Unavailable [phone] Reason for Visit * Reason Comments Anal Cancer * Consultation (Routine) - Closed Specialty Diagnoses / Procedures Referred By Contac t Referred To Contact Surgery / Colon and Rectal Surgery Diagnoses Anal cancer (CMS/HCC) (HCC) Heron Ricci DO Phone: tel: fax: Referral ID Status Reason Start Date Expiration Date V isits Requested Visits Authorized [id number] Closed Specialty Services Required 05/03/2018 05/03/2019 6 6 Encounter Details Date Type Department Care Team (Late st Contact Info) Description 05/09/2018 9:15 AM CDT Office Visit [facility] Surgery [address] [place] [address] Talon Steele MD [address] [facility] [phone] [place] [address] History of anal cancer (Primary Dx); Anal cancer (CMS/HCC) Social History Tobacco Use Types Packs/Day Years Used Date Smoking Tobacco: Former Cigarettes 1 45 1 966 - 2010 Smokeless Tobacco: Never Alcohol Use Standard Drinks/Week Comments Yes 5 (1 standard drink = 0.6 oz pur e alcohol) Comments No Sex and Gender Information Value Date Recorded Sex Assigned at Not on file 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 Gender Identity Not on file Sexual Orientation Not on file documented as of this encounter Last Filed Vital Signs Vital Sign Reading Time Taken Comments Blood Pressure 128/79 05/09/2018 9:14 AM CDT Pulse 119 05/09/2018 9:14 AM CDT Temperature 36.7 ??C (98 ??F) 05/09/2018 9:14 AM CDT Respiratory Rate 16 05/09/2018 9:14 AM CDT Oxygen Saturation 100% 05/09/2018 9:14 AM CDT Inhaled Oxygen Concentration - - Weight 79.6 kg (175 lb 6.4 oz) 05/09/2018 9:14 A M CDT Height - - Body Mass Index 32.07 11/24/2017 2:09 PM CDT documented in this encounter Progress Notes * Talon Steele MD - 05/09/2018 9:15 AM CDT Colorectal Surgery Clinic Visit Chief Complaint: Roxana Andersen is a 68 y.o. female with chief complaint of Anal Cancer HPI: 68-year-old woman is 7 months status post abdominal peroneal resection of pelvic floor reconstruction with AV darinel flap returns to clinic for follow-up. She is doing great, she is managing her stoma without difficulty, good appetite, good energy level and no pain. She is having some urinary symptoms with leakage and urgency this has occurred since surgery. Past Medical History: Diagnosis Date ??? Anal [...] Last attempt to quit: 2010 Years since quittin.1 ??? Smokeless tobacco: Never Used Substance Use Topics ??? Alcohol use: Yes Alcohol/week: 3.0 oz Types: 5 Standard drinks or equivalent per week Family History Problem Relation Age of Onset ??? Heart disease Father Heart Disease - (Added by TW Conv) ??? Diabetes Other Diabetes Mellitus - (Added by [employer] Conv) ??? Cancer Other Cancer - (Added by [employer] Conv) ??? Breast cancer Mother Breast Cancer - (Added by [employer] Conv) ??? Colon polyps Mother ??? Bladder Cancer Brother Family history of bladder cancer - (Added by [employer] Conv) Review of Systems: All systems are negative except as per HPI and scanned media. Vitals: Vitals BP 128/79 Pulse 119 Temp 36.7 ??C (98 ??F) Resp 16 Wt 79.6 kg (175 lb 6.4 oz) SpO2 100% BMI 32.07 kg/m?? Physical exam: GENERAL EXAM Appearance - well developed, well nourished Orientation - alert and oriented x 3 Eyes - anicteric Ears, mouth and nose: Normal Neurologic: Non-focal motor function Pulmonary: Non-labored breathing, no audible wheezing Integumentary: No rashes Musculoskeletal: No gross bony deformities Abdomen -- Soft nontender, nondistended, no masses midline incision well healed with no hernia, left lower quadrant colostomy is pink viable and functioning. Perineum--flap is pink viable and intact. The superior aspect of her gluteal fold she has a red plaque-like lesion. Assessment: Roxana Andersen is a 68 y.o. female with history of anal cancer Plan: Return to clinic in 3 months. If the perineal lesion has not improved will biopsy to rule out Paget's. Talon Steele MD 05/09/2018 10:09 AM documented in this encounter Plan of Treatment Not on file documented as of this encounter Visit Diagnoses Diagnosis History of anal cancer- Primary Anal cancer (CMS/HCC) (HCC) Malignant neoplasm of anus, unspecified site documented in this encounter Orders Outpatient Referral Count Last Ordered Date Fir st Ordered Date AMB REFERRAL TO COLORECTAL SURGERY 1 2018 documented in this encounter Care Teams Agricultural Researcher Relationship Specialty Start Date End Date Heron Ricci DO PCP - General 04/19/16 Ignacio Canela MD Consulting Physician Radiation Oncology 08/12/17 2 documented as of this encounter
--- OUTSIDE RECORDS SUMMARY | 2024-02-28 09:02 | XMS_ITS | Encounter Summary ---
Author Organization [facility] Address [address] [place] [address] Phone Care Team Providers Care Facility Rehab Director Name Role Phone Heron Ricci DO Primary Care Provider [phone]- [phone] Ignacio Canela MD Unavailable [phone] Reason for Visit * Reason Onset Date Comments imaging results 11/01/2019 Encounter Details Date Type Department Care Team (Late st Contact Info) Description 11/01/2019 Telephone [facility] Surgery [address] 2[address] [place] [address] Jazzmine Hernandez RMA imaging results Social History Tobacco Use Types Packs/Day Years Used Date Smoking Tobacco: Former Cigarettes 1 45 1 966 - 2010 Smokeless Tobacco: Never Alcohol Use Standard Drinks/Week Comments Not Currently 5 (1 standard drink = 0.6 oz pur e alcohol) Comments No Sex and Gender Information Value Date Recorded Sex Assigned at Not on file 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 No concerns. * Telephone Encounter - Jazzmine Hernandez RMA - 11/01/2019 4:50 PM CDT ----- Message from Talon Steele MD sent at 11/01/2019 3:49 PM CDT ----- Can you let her know her CT looks great. documented in this encounter Plan of Treatment Not on file documented as of this encounter Visit Diagnoses Not on filedocumented in this encounter Care Teams Facility Rehab Director Relationship Specialty Start Date End Date Heron Ricci DO PCP - General 04/19/16 Ignacio Canela MD Consulting Physician Radiation Oncology 08/12/17 2 documented as of this encounter
--- OUTSIDE RECORDS SUMMARY | 2024-02-28 09:02 | XMS_ITS | Encounter Summary ---
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] on file 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 Gender Identity Not on file Sexual Orientation Not on file documented as of this encounter Discharge Disposition Disposition Code Departure Means Destination Discharge to home or self care documented in this encounter Plan of Treatment Not on file documented as of this encounter Procedures Procedure Name Priority Date/Time Associated Diagnosis Comments PET/CT FDG SKULL TO THIGH Schedule Routine, Read Routine (OP Routine) 10/25/2018 10:15 AM CDT Squamous cell carcinoma of anal canal (CMS/HCC) documented in this encounter Results * PET/CT FDG Skull [...] FDG-PET/CT IMAGING DATE OF STUDY: ??10/25/2018 SCANNER: [facility] RADIOPHARMACEUTICAL: 15.04 mCi F-18 Fluorodeoxyglucose (FDG) i.v. [...] obtained. ??The study was interpreted on the [employer] workstation. ??The mean liver SUV (reported for water quality analyst purposes) is 3.4. ?? The total scanned [...] likely inflammatory; additional scattered areas of bowel vewr-an-uoysnmoz FDG activity is likely physiologic or inflammatory. [...] FDG-PET/CT IMAGING DATE OF STUDY: 10/25/2018 SCANNER: [facility] RADIOPHARMACEUTICAL: 15.04 mCi F-18 Fluorodeoxyglucose (FDG) i.v. Injection site: Left antecubital fossa HISTORY: 68-year-old female with anal cancer status post APR and pelvic reconstruction 09/2017. The study is requested for follow-up. Subsequent treatment strategy. TECHNIQUE: The patient's fasting blood glucose level, measured by glucometer before injection of FDG, was 110 mg/dL. TIFFANIEGastroview was not given orally. After intravenous administration of FDG, noncontrast CT images were obtained for attenuation correction and for fusion with emission PET images to allow for anatomical localization of PET findings. Emission PET images were then obtained. The study was interpreted on the [employer] workstation. The mean liver SUV (reported for water quality analyst purposes) is 3.4. The total scanned area [...] likely inflammatory; additional scattered areas of bowel ostb-[id number]-plqfmvjk FDG activity is likely physiologic or inflammatory. 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) Malignant neoplasm of anal canal documented in this encounter Administered Medications Inactive Administered Medications - up to 3 most recent administrations Medication Order MAR Action Action Date Dose Rate Site f-18 fdg injection 15.04 millicurie 15.04 millicurie, intravenous, Once in imaging, radiopharmaceutical , Starting on Tue10/25/18 at 0910, For 1 dose Given 10/25/2018 8:53 AM CDT 15.04 millicuries Left Antecubital documented in this encounter Orders Medications Ordered That Omari ht Not Have Been Administered Count Last Ordered Date First Ordered Date f-18 fdg injection 15.04 millicurie 1 10/25 documented in this encounter Care Teams Purification Supervisor Relationship Specialty Start Date End Date Heron Ricci DO PCP - General 04/19/16 Ignacio Canela MD Consulting Physician Radiation Oncology 08/12/17 2 documented as of this encounter
--- OUTSIDE RECORDS SUMMARY | 2024-02-28 09:02 | XMS_ITS | Encounter Summary ---
Author Organization [facility] Address [address] [place] [address] Phone Care Team Providers Care Ice Guard Inspector Name Role Phone Heron Ricci DO Primary Care Provider [phone] Ignacio Canela MD Unavailable [phone] Reason for Visit * Reason Comments Ostomy Care colostomy * Consultation (Routine) - Closed Specialty Diagnoses / Procedures Referred By Emilia berkowitz Referred To Contact Colon and Rectal Surgery Diagnoses Ostomy marking/education Procedures RETURN [facility] Surgery [address] 2[address] [place] [address] Phone: tel: fax: [place] [address] [place] [address] Phone: tel: fax: Referral ID Status Reason Start Date Expiration Date Visits Re quested Visits Authorized [id number] Closed 10/06/2017 02/27/2018 12 12 Encounter Details Date Type Department Care Team (Late st Contact Info) Description 11/24/2017 2:00 PM CDT Office Visit [facility] Surgery [address] 2[address] Floor [address] [place] [address] [place] [address] [place] [address] Colostomy care ([facility]) (Primary Dx) Social History Tobacco Use Types Packs/Day Years Used Date Smoking Tobacco: Former Cigarettes 1 45 1 966 - 2011 Smokeless Tobacco: Never Alcohol Use Standard Drinks/Week Comments Yes 5 (1 standard drink = 0.6 oz pur e alcohol) Comments No Sex and Gender Information Value Date Recorded Sex Assigned at Not on file 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 Gender Identity Not on file Sexual Orientation Not on file documented as of this encounter Last Filed Vital Signs Vital Sign Reading Time Taken Comments Blood Pressure 109/77 11/24/2017 2:09 PM CDT Pulse 114 11/24/2017 2:09 PM CDT Temperature 36.7 ??C (98 ??F) 11/24/2017 2:09 PM CDT Respiratory Rate - - Oxygen Saturation 95% 11/24/2017 2:09 PM CDT Inhaled Oxygen Concentration - - Weight 75.1 kg (165 lb 8 oz) 11/24/2017 2:09 PM CDT Height 157.5 cm (5' 2.01 ) 11/24/2017 2:09 PM CD T Body Mass Index 30.26 11/24/2017 2:09 PM CDT documented in this encounter Progress Notes * Bonny Aranda NP - 11/24/2017 2:00 PM CDT Ostomy Assessment Patient has colostomy in . Stoma is pink, moist, brooked and in deep crease. Output is soft and formed Recommendations for pouching: Coloplast deep convex # [id number] Barrier ring Paste Peristomal skin assessment: evidence of healed peristomal skin breakdown is present. Education provided which included: but not limited to, supplies . bathing, activity, clothing, skin care, follow-up and patient concerns. Recommend follow up as needed documented in this encounter Plan of Treatment Not on file documented as of this encounter Visit Diagnoses Diagnosis Colostomy care ([facility])- Primary Attention to colostomy documented in this encounter Care Teams Ice Guard Inspector Relationship Specialty Start Date End Date Heron Ricci DO PCP - General 04/19/16 Ignacio Canela MD Consulting Physician Radiation Oncology 08/12/17 2 documented as of this encounter
--- OUTSIDE RECORDS SUMMARY | 2024-02-28 09:02 | XMS_ITS | Encounter Summary ---
Author Organization [facility] Address [address] [place] [address] Phone Care Team Providers Care Handkerchief Folder Name Role Phone Heron Ricci DO Primary Care Provider [phone] Ignacio Canela MD Unavailable [phone] Reason for Visit * Consultation (Routine) - Closed Specialty Diagnoses / Procedures Referred By Emilia berkowitz Referred To Contact Plastic Surgery Diagnoses VRAM on 10/17/17 Procedures POSTOPERATIVE VISIT Talon Steele MD Phone: tel: fax: Evangelina Reddy NP [address] [place] [address] Phone: tel: fax: Referral ID Status Reason Start Date Expiration Date Visits Re quested Visits Authorized [id number] Closed 11/01/2017 05/13/2019 1 1 Encounter Details Date Type Department Care Team (Late st Contact Info) Description 11/01/2017 1:15 PM CDT Office Visit [facility] Surgery [address] [facility] 6th [place] [address] [place] [id number] Evangelina Reddy NP [address] [place] [address] History of anal cancer (Primary Dx) Social [...] on file Legal Sex Female 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 DATE OF PROCEDURE: 10/17/17 HISTORY OF PRESENT ILLNESS Ms. Andersen is a patient of Dr. Villa's who has colorectal cancer. She underwent the above named procedure for reconstruction and follows up today for the first postoperative visit. Pain has been controlled with Tylenol. She has been using antibiotic ointment to the incisions as well as perineal flap. She denies fevers or chills and has been compliant with the flap protocol. FOCUSED PHYSICAL EXAM The patient has intact muscle flap with a well-perfused skin paddle noted to her perineum. The wound edges appear quite moist. There is a minimal amount of dehisence on either side of the flap. The posterior aspect has a eschar in place. There is erythema in place to the wound edges without drainage or obvious evidence of infection. There is good capillary refill. She has an ostomy in place to her abdomen with a well-healed vertical abdominal incision. ASSESSMENT 1. Colorectal cancer status post resection and the KIKE reconstruction. PLAN Ms. Andersen is overall doing well. I have asked her to discontinue the antibiotic ointment and just use a bit of Vaseline on the abdominal incision. I am going to prescribe her some nystatin cream to the perineal flap. She should also cover this posterior aspect with that has a bit of eschar in place. She will continue with the flap protocol on avoid direct pressure sitting or lying on the flap. tiffanie will follow up with Dr. Villa in 2 weeks time and her and her understand to call sooner with any concerns or issues. They were agreeable to the plan and all questions were answered. documented in this encounter Plan of Treatment Not on file documented as of this encounter Visit Diagnoses Diagnosis History of anal cancer- Primary documented in this encounter Care Teams Handkerchief Folder Relationship Specialty Start Date End Date Heron Ricci DO PCP - General 04/19/16 Ignacio Canela MD Consulting Physician Radiation Oncology 08/12/17 2 documented as of this encounter
--- OUTSIDE RECORDS SUMMARY | 2024-02-28 09:02 | XMS_ITS | Encounter Summary ---
Author Organization [facility] Address [address] [place] [address] Phone Care Team Providers Care Brick Loader Name Role Phone Heron Ricci DO Primary Care Provider [phone] Ignacio Canela MD Unavailable [phone] Reason for Visit * Reason Onset Date Comments FREE TEXT 11/18/2017 WANTS TO SPEAK W [facility] NURSE Encounter Details Date Type Department Care Team (Late st Contact Info) Description 11/18/2017 Telephone [facility] Surgery [address] [place], [place] [id number] Carina Hagan FREE TEXT (WANTS TO SPEAK WITH NURSE) Social History Tobacco Use Types Packs/Day Years Used Date Smoking Tobacco: Former Cigarettes 1 45 1 966 - 2010 Smokeless Tobacco: Never Alcohol Use Standard Drinks/Week Comments Yes 5 (1 standard drink = 0.6 oz pur e alcohol) Comments No Sex and Gender Information Value Date Recorded Sex Assigned at Not on file Legal Sex Female 8:43 AM HAND MARKER Gender Identity Not on file Sexual Orientation Not on file documented as of this encounter Miscellaneous Notes * Telephone Encounter - Carina Hagan - 11/18/2017 8:45 AM CDT Spoke with Roxana's the bag that you put her yesterday is not working it came off. Please give them a call. [phone] documented in this encounter Plan of Treatment Not on file documented as of this encounter Visit Diagnoses Not on filedocumented in this encounter Care Teams Brick Loader Relationship Specialty Start Date End Date Heron Ricci DO PCP - General 04/19/16 Ignacio Canela MD Consulting Physician Radiation Oncology 08/12/17 2 documented as of this encounter
--- OUTSIDE RECORDS SUMMARY | 2024-02-28 09:02 | XMS_ITS | Encounter Summary ---
Author Organization [facility] Address [address] [place] [address] Phone Care Team Providers Care Polymerization Helper Name Role Phone Heron Ricci DO Primary Care Provider [phone] Ignacio Canela MD Unavailable [phone] Reason for Visit * Reason Onset Date Comments bleeding 06/20/2018 Encounter Details Date Type Department Care Team (Late st Contact Info) Description 06/20/2018 Telephone [facility] Surgery [address] [place] [address] Carina Hagan bleeding Social History Tobacco Use Types Packs/Day Years Used Date Smoking Tobacco: Former Cigarettes 1 45 1 966 - 2010 Smokeless Tobacco: Never Alcohol Use Standard Drinks/Week Comments Yes 5 (1 standard drink = 0.6 oz pur e alcohol) Comments No Sex and Gender Information Value Date Recorded Sex Assigned at Not on file Legal Sex Female 8:[address]IONER Gender Identity Not on file Sexual Orientation Not on file documented as of this encounter Miscellaneous Notes * Telephone Encounter - Erendira SoaresMILA - 06/20/2018 11:14 AM CDT I spoke to the patient. She is 8M out from an APR. She states she has been itching lately under her pouch and had a rupture . She changed the pouch last night. She woke up in the middle of the night to find bright red blood in her pouch. She states she has emptied it multiple times since then, each time with bright red blood. She denies dizziness or feeling light headed. She is comfortable going to the nearest ED to be evaluated. * Telephone Encounter - Carina Hagan - 06/20/2018 10:45 AM CDT Spoke w/Roxana and she stated she had blood coming out her stoma. She has drained her bag 3'x today since 1:00am this morning when she noticed the blood. I stated I would send a message to our ostomy nurse Erendira/MILA. She understood and phone call was ended. documented in this encounter Plan of Treatment Not on file documented as of this encounter Visit Diagnoses Not on filedocumented in this encounter Care Teams Polymerization Helper Relationship Specialty Start Date End Date Heron Ricci DO PCP - General 04/19/16 Ignacio Canela MD Consulting Physician Radiation Oncology 08/12/17 2 documented as of this encounter
--- OUTSIDE RECORDS SUMMARY | 2024-02-28 09:02 | XMS_ITS | Encounter Summary ---
Author Organization [facility] Address [address] [facility] [address] [place] [address] Phone Care Team Providers Care Delivery Table Operator Name Role Phone Heron Ricci DO Primary Care Provider [phone] Ignacio Canela MD Unavailable [phone] Encounter Details Date Type Department Care Team (Late st Contact Info) Description 10/10/2019 Orders Only [facility] Surgery [address] [place] [address] Talon Steele MD [address] [facility] [phone] [place], [place] [id number] Anal squamous cell carcinoma (CMS/HCC) (Primary Dx); Malignant neoplasm of anal canal (CMS/HCC) Social History Tobacco Use Types Packs/Day Years Used Date Smoking Tobacco: Former Cigarettes 1 45 1 966 - 2010 Smokeless Tobacco: Never Alcohol Use Standard Drinks/Week Comments Not Currently 5 (1 standard drink = 0.6 oz pur e alcohol) Comments No Sex and Gender Information Value Date Recorded Sex Assigned at Not on file Legal Sex Female 8:43 AM CASHIER GENERAL Gender Identity Not on file Sexual Orientation Not on file documented as of this encounter Plan of Treatment Not on file documented as of this encounter Visit Diagnoses Diagnosis Anal squamous cell carcinoma (HCC)- Primary Malignant neoplasm of anus, unspecified site Malignant neoplasm of anal canal (CMS/HCC) Malignant neoplasm of anal canal documented in this encounter Care Teams Delivery Table Operator Relationship Specialty Start Date End Date Heron Ricci DO PCP - General 04/19/16 Ignacio Canela MD Consulting Physician Radiation Oncology 08/12/17 2 documented as of this encounter
--- OUTSIDE RECORDS SUMMARY | 2024-02-28 09:02 | XMS_ITS | Encounter Summary ---
Author Organization [facility] Address [address] [facility] [address] [place] [address] Phone Care Team Providers Care Assistant Buyer Name Role Phone Heron Ricci DO Primary Care Provider [phone]- [phone] Ignacio Canela MD Unavailable [phone] Reason for Referral * Diagnostic Imaging (Routine) - Closed Specialty Diagnoses / Procedures Referred By Emilia berkowitz Referred To Contact Radiology Diagnoses History of anal cancer Procedures CT Chest Abdomen Pelvis W Contrast Talon Steele MD Phone: tel: fax: [facility] Referral ID Status Reason Start Date Expiration Date Visits Re quested Visits Authorized [id number] Closed 10/17/2019 11/15/2020 1 1 Encounter Details Date Type Department Care Team (Late st Contact Info) Description 10/17/2019 Orders Only [facility] Surgery [address] [facility] [place] [address] Talon Steele MD [address] [facility] [phone] [place] [address] History of anal cancer (Primary [...] on file Legal Sex Female 8:43 AM DIRECT SERVICE PROVIDER Gender Identity Not on file Sexual Orientation [...] agrees with it. Electronically signed by: Raul Clavillo M.D. Narrative 10/31/2019 10:49 AM CDT EXAMINATION: [...] Electronically signed by: Raul Calvillo M.D. us Talon Steele MD IMG CT PROCEDURES Final Resu lt documented in this encounter Visit Diagnoses Diagnosis History of anal cancer- Primary History of anal cancer documented in this encounter Care Teams Assistant Buyer Relationship Specialty Start Date End Date Heron Ricci DO PCP - General 04/19/16 Ignacio Canela MD Consulting Physician Radiation Oncology 08/12/17 2 documented as of this encounter
--- OUTSIDE RECORDS SUMMARY | 2024-02-28 09:02 | XMS_ITS | Encounter Summary ---
Author Organization [facility] Address [address] [place] [address] Phone Care Team Providers Care Corporate Compliance Director Name Role Phone Heron Ricci DO Primary Care Provider [phone] Ignacio Canela MD Unavailable [phone] Reason for Visit * Reason Comments Follow-up Flap check * Surgical (Routine) - Closed Specialty Diagnoses / Procedures Referred By Contlaya berkowitz Referred To Contact Plastic Surgery Diagnoses 2 WEEK F/U ANUS Procedures POSTOPERATIVE VISIT Talon Steele MD Phone: tel: fax: Evangelina Reddy NP [address] [place] [address] Phone: tel: fax: Referral ID Status Reason Start Date Expiration Date Visits Re quested Visits Authorized [id number] Closed 11/14/2017 05/26/2019 1 1 Encounter Details Date Type Department Care Team (Late st Contact Info) Description 11/14/2017 10:15 AM CDT Office Visit [facility] [address] [facility] 6th [place] [address] [place] [address] Evangelina Reddy NP [address] [place] [address] Anal cancer (CMS/HCC) (Primary Dx) Social History Tobacco Use Types Packs/Day Years Used Date Smoking Tobacco: Former Cigarettes 1 45 1 966 - 2011 Smokeless Tobacco: Never Alcohol Use Standard Drinks/Week Comments Yes 5 (1 standard drink = 0.6 oz pur e alcohol) Comments No Sex and Gender Information Value Date Recorded Sex Assigned at Not on file Legal 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 POST OPERATIVE VISIT ? Roxana Andersen 1950 [id number] ?? PROCEDURE: Status post VRAM flap for perineal reconstruction with posterior vaginal wall reconstruction and complex abdominal closure. ?? DATE OF PROCEDURE: 10/17/17 ?? HISTORY OF PRESENT ILLNESS Ms. Andersen is a patient of Dr. Villa's who has colorectal cancer. She underwent the above named procedure for reconstruction and follows up today a postoperative visit. She has been compliant with the flap protocol. She has been using nystatin cream. ?? FOCUSED PHYSICAL EXAM She has a well-perfused muscle flap noted to her perineum. There is a small amount of dehiscence along 1 of the borders with 0.5 cm of depth. The posterior tip of the muscle flap has a bit of eschar in place. There is no evidence of infection. The flap is warm to the touch in blanches. There is intact capillary refill. ?? ASSESSMENT 1. Colorectal cancer status post resection and the KIKE reconstruction. ?? PLAN Ms. Andersen looks well. I showed her and her how to do wet-to-dry dressings with a bit of packing along the area of dehiscence. They may use a bit of Vaseline over the tip with the eschar. They will then cover with dry gauze to hold in place. She will continue with the flap protocol however I did give her permission to prop up a bit on her side for short periods of time but avoiding any direct pressure on the flap when eating for example. She will return in 2-3 weeks time to see Dr. Villa and understands to call sooner with any concerns or issues. Once they were no longer able to pack the wound that will transition to just Vaseline. documented in this encounter Plan of Treatment Not on file documented as of this encounter Visit Diagnoses Diagnosis Anal cancer (CMS/HCC) (HCC)- Primary Malignant neoplasm of anus, unspecified site documented in this encounter Care Teams Corporate Compliance Director Relationship Specialty Start Date End Date Heron Ricci DO PCP - General 04/19/16 Ignacio Canela MD Consulting Physician Radiation Oncology 08/12/17 2 documented as of this encounter
--- OUTSIDE RECORDS SUMMARY | 2024-02-28 09:03 | XMS_ITS | Encounter Summary ---
Author Organization [facility] Healthcare Address [address] [place] [address] Care Team Providers Care Prescription Benefit Specialist Name Role Phone Heron Ricci DO Primary Care Provider [phone] Encounter Details Date Type Department Care Team (Latest Contact Info) Description 04/04/2017 9:14 AM WHITE SHOE EXAMINER - 04/04/2017 11:59 PM WHITE SHOE EXAMINER Hospital Encounter [facility] [phone] Ignacio Canela MD [address] [facility] [address] [place] [address] Discharge Disposition: Discharge to home or self care Social History Tobacco Use Types Packs/Day Years Used Date Smoking Tobacco: Former Comments Unknown Sex and Gender Information Value Date Recorded Sex Assigned at Not on file Legal Sex Female 8:43 AM WHITE SHOE EXAMINER Gender Identity Not on file Sexual Orientation Not on file documented as of this encounter Medications at Time of Discharge omega 5-ahw-cmx-fish oil 300-1,000 mg capsule Take 1 capsule by mouth 2 (two) times a week 05/17/2012 [id number] 61-O-xyqbuuml 500 mg calcium- 400 unit-15 mcg tablet 05/17/2012 10/07/2017 documented as of this encounter Discharge Disposition Disposition Code Departure Means Destination Discharge to home or self care documented in this encounter Plan of Treatment Not on file documented as of this encounter Procedures Procedure Name Priority Date/Time Associated Diagnosis Comments CT ABDOMEN PELVIS W CONTRAST Routine 04/04/2017 3:56 PM WHITE SHOE EXAMINER POCT CREATININE FOR CONTRAST EVALUATION Routine Gen Lab 04/04/2017 9:39 AM WHITE SHOE EXAMINER documented in this encounter Results * CT Abdomen Pelvis W Contrast (04/04/2017 3:56 PM WHITE SHOE EXAMINER) Anatomical Region Laterality Modality Body N/A Computed Tomogra phy 04/04/2017 3:56 PM WHITE SHOE EXAMINER Narrative 04/04/2017 10:44 PM WHITE SHOE EXAMINER RENETTA NOLAN M.D. TRACE PACHECO M.D. FINAL REPORT The radiology attending physician has personally reviewed this study, and has reviewed and/or edited this written report and agrees with it. ACC# ??Date Time ??Exam [id number] Apr 04, 2017 09:56:[id number] Abd & ??Pelvis with cont EXAMINATION: ??Computed tomography of the abdomen and pelvis with intravenous contrast HISTORY: 66-year-old woman with anal squamous cell carcinoma status post chemotherapy and radiation TECHNIQUE: ??Transaxial computed tomographic images of the abdomen and pelvis were obtained with intravenous contrast according to the standard protocol after the uneventful administration of 100 mL Opti-Ray 350 intravenous contrast. COMPARISON: CT of the abdomen and pelvis dated 12/13/2016 and PET/CT dated 09/01/2016 FINDINGS: ?? Bilateral breast augmentations are noted. ??There are mild atherosclerotic calcifications of the coronary arteries. ??Heart size is otherwise normal. ??No pleural effusion. There is moderate elevation of the right hemidiaphragm. The liver is normal in size with no focal hepatic lesion. ??The portal vein is patent. ??The gallbladder, spleen, stomach, and adrenal glands are normal. ??The kidneys enhance symmetrically and there is no hydronephrosis. ??There are moderate atherosclerotic calcifications of the abdominal aorta and its branches. There is a 2.7 x 2.5 cm right adnexal cyst with an associated coarse calcification. ??The uterus is normal in size with a stable fibroid within the uterine fundus. ??There are no left adnexal lesions. There are scattered diverticuli throughout the colon with no CT evidence of acute diverticulitis. There is stable circumferential thickening of the anus and rectum in keeping with treated anal squamous cell carcinoma. Bone windows demonstrate grade 1 anterolisthesis of L3 on L4 and partial bony fusion of L4 on L5. Lung bases demonstrate minimal atelectasis at the right lung base. IMPRESSION: ??1. ??Stable circumferential thickening of the anus in keeping with the known treated squamous cell carcinoma. 2. ??No evidence of metastatic disease throughout the abdomen and pelvis. 3. ??Stable hemorrhagic right adnexal cyst. Electronically signed by: Renetta Judd M.D. Requested By: Ignacio Canela ??Analy ? Dictated By: ?? TRACE PACHECO M.D. ??on Mar ??2017 11:13A This document has been electronically signed by: RENETTA NOLAN M.D. on Mar ??2017 ??4:42P [id number] ROBERTSON M.D. FINAL REPORT The radiology attending physician has personally reviewed this study, and has reviewed and/or edited this written report and agrees with it. Attending: ??HILTON, ??IGNACIO Requesting: ??Hilton, ??Ignacio Requesting Fax: ?? Attending Fax: ?? Attending ID: ??[id number] Requesting ID: ??[id number] Report To 1 ID: ??[id number] ? Report To 1 Name: ??, ?? Report To 1 FAX: ?? NextGen Order #: ?? Procedure Note Miscellaneous, Not In File - 04/04/2017 Analy ROBERTSON M.D. FINAL REPORT The radiology attending physician has personally reviewed this study, and has reviewed and/or edited this written report and agrees with it. ACC# Date Time Exam [id number] Apr 04, 2017 09:56:[id number] Abd & Pelvis with cont EXAMINATION: Computed tomography of the abdomen and pelvis with intravenous contrast HISTORY: 66-year-old woman with anal squamous cell carcinoma status post chemotherapy and radiation TECHNIQUE: Transaxial computed tomographic images of the abdomen and pelvis were obtained with intravenous contrast according to the standard protocol after the uneventful administration of 100 mL Opti-Ray 350 intravenous contrast. COMPARISON: CT of the abdomen and pelvis dated 12/13/2016 and PET/CT dated 09/01/2016 FINDINGS: Bilateral breast augmentations are noted. There are mild atherosclerotic calcifications of the coronary arteries. Heart size is otherwise normal. No pleural effusion. There is moderate elevation of the right hemidiaphragm. The liver is normal in size with no focal hepatic lesion. The portal vein is patent. The gallbladder, spleen, stomach, and adrenal glands are normal. The kidneys enhance symmetrically and there is no hydronephrosis. There are moderate atherosclerotic calcifications of the abdominal aorta and its branches. There is a 2.7 x 2.5 cm right adnexal cyst with an associated coarse calcification. The uterus is normal in size with a stable fibroid within the uterine fundus. There are no left adnexal lesions. There are scattered diverticuli throughout the colon with no CT evidence of acute diverticulitis. There is stable circumferential thickening of the anus and rectum in keeping with treated anal squamous cell carcinoma. Bone windows demonstrate grade 1 anterolisthesis of L3 on L4 and partial bony fusion of L4 on L5. Lung bases demonstrate minimal atelectasis at the right lung base. IMPRESSION: 1. Stable circumferential thickening of the anus in keeping with the known treated squamous cell carcinoma. 2. No evidence of metastatic disease throughout the abdomen and pelvis. 3. Stable hemorrhagic right adnexal cyst. Electronically signed by: Renetta Judd M.D. Requested By: Ignacio Canela M.D. Dictated By: TRACE PACHECO M.D. on Apr 04 2017 11:13A This document has been electronically signed by: RENETTA NOLAN M.D. on Apr 04 2017 4:42P [id number] ROBERTSON M.D. FINAL REPORT The radiology attending physician has personally reviewed this study, and has reviewed and/or edited this written report and agrees with it. Attending: IGNACIO CANELA Requesting: Ignacio Canela Requesting Fax: Attending Fax: Attending ID: [id number] Requesting ID: [id number] Report To 1 ID: [id number] Report To 1 Name: , Report To 1 FAX: NextGen Order #: Ignacio Canela MD IMG CT PROCEDURES Final Result * POCT creatinine (04/04/2017 9:39 AM WHITE SHOE EXAMINER) Creatinine POC 0.7 0.6 - 1.1 mg/dL ARVIND SUE Blood specimen (specimen) 04/04/2017 9:39 AM WHITE SHOE EXAMINER 04/04/2017 9:39 AM WHITE SHOE EXAMINER Narrative ARVIND SUE - 04/04/2017 9:57 AM WHITE SHOE EXAMINER Ignacio Canela MD POINT OF CARE TEST ORDE GHASSAN Final Result [facility] Department [place] [address] documented in this encounter Visit Diagnoses Not on filedocumented in this encounter Care Teams Prescription Benefit Specialist Relationship Specialty Start Date End Date Heron Ricci DO PCP - General 04/19/16 documented as of this encounter
--- OUTSIDE RECORDS SUMMARY | 2024-02-28 09:03 | XMS_ITS | Encounter Summary ---
Author Organization [facility] Healthcare Address [address] [place] [address] Care Team Providers Care Weatherization Installer Name Role Phone Heron Ricci DO Primary Care Provider [phone] Ignacio Canela MD Unavailable [phone] Encounter Details Date Type Department Care Team (Late st Contact Info) Description 08/26/2017 10:00 AM CDT - 08/26/2017 10:45 AM CDT Surgery [facility] Operating Room [address] [place] [address] Tania Steele MD [address] [facility] [phone] [place] [address] EXAM UNDER ANESTHESIA WITH RECTAL BIOPSY Surgery Details Date/Time Status Location OR Service Patient Class Case Cl ass Case Type Trauma Case? 08/26/2017 10:00 AM Posted [facility] OPERATING ROOM MOR1 Colorectal Outpatient Elective Panel 1 Procedure LRB Anes Op Region Wound Class Comments EXAM UNDER ANESTHESIA WITH RECTAL BIOPSY N/A Monitor Anesthesia Care Vagina Class II - Clean Contaminated Surgeon Surgeon Role Service Panel Tania Steele MD Primary Colorectal 1 Eduard Hightower MD Resident - Assisting 1 documented in this encounter Social History Tobacco Use Types Packs/Day Years Used Date Smoking Tobacco: Former Smokeless Tobacco: Never Alcohol Use Standard Drinks/Week Comments Yes 5 (1 standard drink = 0.6 oz pur e alcohol) Comments No Sex and Gender Information Value Date Recorded Sex Assigned at Not on file Legal 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 Gender Identity Not on file Sexual Orientation Not on file documented as of this encounter Last Filed Vital Signs Vital Sign Reading Time Taken Comments Blood Pressure 139/84 08/26/2017 10:40 AM CDT Pulse 79 08/26/2017 10:45 AM CDT Temperature 36.2 ??C (97.2 ??F) 08/26/2017 10:38 AM C DT Respiratory Rate 16 08/26/2017 10:38 AM CDT Oxygen Saturation 94% 08/26/2017 10:45 AM CDT Inhaled Oxygen Concentration - - Weight - - Height - - Body Mass Index - - documented in this encounter Medications at Time of Discharge naproxen (ALEVE) 220 mg tablet Take 1 tablet (220 mg total) by mouth every 12 (twelve) hours as needed omega 7-icr-vti-fish oil 300-1,000 mg capsule Take 1 capsule by mouth 2 (two) times a week 05/17/2012 vitamin E 400 unit capsule Take 1 capsule (400 Units total) by mouth 2 (two) times a week acetaminophen (TYLENOL) 500 mg tabletIndications :Pain Take 1 tablet (500 mg total) by mouth every 6 (six) hours as needed 01/11/2024 aspirin 81 mg chewable tabletIndications :prevention of thrombosis Take 1 tablet (81 mg total) by mouth every morning 11/23/2023 budesonide-formot Humberto (SYMBICORT) 80-4.5 mcg/actuation inhalerIndication s:Bronchospasm Prevention with COPD Inhale 2 puffs 2 (two) times a day as needed 01/11/2024 jsnkhll-[id number]-A-FA-B 99-W-ixjhtuip 500 mg calcium- 400 unit-15 mcg tablet 05/17/2012 10/07/2017 hydroCHLOROthiazi de (HYDRODIURIL) 25 mg tabletIndications :hypertension Take 1 tablet (25 mg total) by mouth as needed 07/27/2017 01/11/2024 losartan (COZAAR) 100 mg tabletIndications :hypertension Take 1 tablet (100 mg total) by mouth every morning 11/23/2023 documented as of this encounter Discharge Disposition Disposition Code Departure Means Destination Discharge to home or self care documented in this encounter H&P Notes * Eduard Hightower MD - 08/26/2017 7:44 AM CDT I have reviewed the H&P, examined the patient, and endorse the findings as written. Plan of Care : Based on the above findings, I consider Roxana Andersen to be an acceptable risk for : Procedure(s): EXAM UNDER ANESTHESIA BIOPSY - RECTAL Cosigned by Tania Steele MD at 08/26/2017 9:04 AM CDT Source Note - Tania Steele MD - 08/16/2017 11:00 AM CDT Colorectal Surgery Clinic Visit Chief Complaint: Roxana Andersen is a 67 y.o. female with chief complaint of Return Patient (anal cancer) HPI: Patient is 15 months status post completion of therapy for anal cancer. She continues to do well with no symptoms of bleeding pain or drainage. She has no other complaints. Past Medical History: Diagnosis Date ??? Anal cancer (CMS/HCC) ??? COPD (chronic obstructive pulmonary disease) (CMS/HCC) ??? Nonruptured cerebral aneurysm Cerebral arterial aneurysm - (Added by TW Conv) ??? Personal history of other diseases of the circulatory system History of hypertension - (Added by TW Conv) ??? Personal history of other diseases of the digestive system History of esophageal reflux - (Added by TW Conv) ??? Personal history of other infectious and parasitic diseases History of mumps - (Added by TW Conv) Past Surgical History: Procedure Laterality Date ??? BREAST BIOPSY Biopsy Breast Open - (Added by TW Conv) ??? BREAST SURGERY Breast Surgery Enlargement Procedure Bilateral - (Added by TW Conv) ??? EXAMINATION UNDER ANESTHESIA 12/23/2016 EUA with biopsy ??? INTRACRANIAL ANEURYSM REPAIR Intracranial Aneurysm Repair - (Added by TW Conv) (Not in a hospital admission) Allergies Allergen Reactions ??? Codeine Nausea only Reaction: NAUSEA, ??? Sulfa (Sulfonamide Antibiotics) Nausea only Social History Substance Use Topics ??? Smoking status: Former Smoker ??? Smokeless tobacco: Not on file ??? Alcohol use Yes Comment: 1.5 pints per week Family History Problem Relation Age of Onset ??? Heart disease Father Heart Disease - (Added by TW Conv) ??? Diabetes Other Diabetes Mellitus - (Added by Conv) ??? Cancer Other Cancer - (Added by TW Conv) ??? Breast cancer Mother Breast Cancer - (Added by Conv) ??? Bladder Cancer Brother Family history of bladder cancer - (Added by TW Conv) Review of Systems: As noted in HPI Constitutional: No fever, no chills, no unintended weight loss Neurological: No headaches, no dizziness, no vision changes Cardiovascular: No chest pain, no palpitations Respiratory: No shortness of breath, no coughing Psychiatric: No mood changes, no depression Lymphatic: No swollen lymph nodes Hematology: No easy bruising/bleeding Integument: No itching, no non-healing sores Oral: No mouth sores Musculoskeletal: No joint stiffness Gastrointestinal: No nausea, no vomiting, no diarrhea, no abdominal pain, no constipation Genitourinary: No hematuria or dysurea Vitals: Vitals: 08/16/17 1057 BP: (!) 175/98 Pulse: 89 Resp: 16 Temp: 36.7 ??C (98.1 ??F) SpO2: 94% Physical exam: GENERAL EXAM Appearance - well developed, well nourished Orientation - alert and oriented x 3 Eyes - anicteric Neuro - non-focal Lungs - clear to auscultation Cardiac - regular rate and rhythm Femoral Pulses - 2+/2+ Inguinal Nodes - no adenopathy Abdomen -- Soft nontender, nondistended, no masses Groins--no inguinal adenopathy MIKI--large right anterior ulcer that remains unchanged from previous exam. Anoscopy--clean appearing right anterior lateral ulcer. Assessment: Roxana Andersen is a 67 y.o. female with history of anal cancer Plan: Given the lesion has not improved will plan for examination under anesthesia with biopsy. Tania Steele MD 08/16/2017 11:58 AM documented in this encounter Miscellaneous Notes * Op Note - Tania Steele MD - 08/26/2017 10:00 AM CDT SURGEON Tania Steele MD ENDLESS TRACK VEHICLE SUPERVISOR: Eduard Hightower PREOPERATIVE DIAGNOSIS: History of anal cancer POSTOPERATIVE DIAGNOSIS: Same OPERATIVE PROCEDURE: Examination under anesthesia with biopsy ANESTHESIAIV sedation with 40 mL of 0.25% Marcaine. INDICATIONS FOR PROCEDURE The patient is a 67 y.o. female with a history of anal cancer treated with chemotherapy radiation treatment. She has a persistent ulcer at the bed of the tumor site. Given its persistence we elected to bring her to the operating room for examination under anesthesia and biopsy. OPERATIVE FINDINGS: Large cavitating ulcer at the site of the tumor bed with firmness extending outinto the sphincter. OPERATIVE PROCEDUREWith informed consent, the patient was brought to the operating room, placed in the prone wilberto-knife position. He was not given any prophylactic IV antibiotics or venous thromboembolic event prophylaxis. The perineum was prepped and draped in usual sterile fashion. Local anesthesia was administered. Digital rectal examination was performed confirming the presence of the lesion and ulcer. The induration or firmness extended out into the sphincter complex. A 14 gauge Guero-Cut biopsy needle was passed through the perianal skin into the sphincter complex and 2 biopsies were obtained. Next a small Hill-Diana retractor was inserted in the lateral edges of the ulcer were biopsied with Metzenbaum scissors. The patient tolerated the procedure well and was taken to postanesthesia recovery in stable condition. SPONGE, INSTRUMENT, NEEDLE COUNTS were correct. TOTAL IV FLUIDS1 L .ESTIMATED BLOOD LOSS Minimal. SPECIMEN: 1. Transperineal biopsy 2. Anal canal biopsy Of note, I Dr. Steele, was present for the entire case. TANIA STEELE M.D. * Brief Op Note - Eduard Hightower MD - 08/26/2017 10:00 AM CDT Operative Progress Note Attending Surgeon: Tania Steele MD Surgical Team: Utility Manager: Alicia Ray RN Scrub: Cyndi Nuno SA DATE OF SURGERY : 08/26/2017 Preoperative Diagnosis: Pre-op Diagnosis * Anal cancer (CMS/HCC) [C21.0] Postoperative Diagnosis: Post-op Diagnosis * Anal cancer (CMS/HCC) [C21.0] Procedure: Procedure(s): EXAM UNDER ANESTHESIA WITH RECTAL BIOPSY Operative Findings: Right lateral ulcer in the anal canal, 2cm in size and 1cm deep, feeling firm and fixed. Biopsies taken transperineal and from edge of the ulcer through the anal canal. Estimated Blood Loss: No blood loss documented. Intraoperative Fluids: 200 mls Specimens: ID Type Source Tests Collected by Time A : Transperineal biopsy Tissue Rectal biopsy SURGICAL PATHOLOGY Tania Steele MD 08/26/2017 1023 B : Anal canal Tissue Anal Biopsy SURGICAL PATHOLOGY Tania Steele MD 08/26/2017 1026 Implants: Nothing was implanted during the procedure Blood/Blood Products Transfused: 5 mls Complications: None Condition on Discharge from the operating room was stable Eduard Hightower MD Date: 08/26/2017 Time: 10:35 AM TEACHING ATTESTATION : I was present and directly participated in the entire procedure (including opening and closing). Cosigned by Tania Steele MD at 08/26/2017 3:35 PM CDT * Pre-Procedure Instructions - Chanda England RN - 08/25/2017 3:25 PM CDT NPO after midnight. Leave jewelry & valuables at home. Please bring ID & insurance card. Wear comfortable clothing. Check in at the front end software engineer at [facility] off of [address]. You need to have a regional company hazmat tanker driver with you to take you home & stay with you for 24 hrs. after surgery. Shower the evening before and the morning of surgery with antibacterial soap such as dial from the neck down. Please put clean sheets on bed evening before surgery. No lotions, creams, powders, deodorant, or makeup. Take the following medications with a sip of water:inhaler. documented in this encounter Plan of Treatment Not on file documented as of this encounter Procedures Procedure Name Priority Date/Time Associated Diagnosis Comments SURGICAL PATHOLOGY Routine 08/26/2017 10 :23 AM CDT EXAM UNDER ANESTHESIA 08/26/2017 10:13 AM CDT Anal cancer (CMS/HCC) POC ISTAT Routine 08/26/2017 10:05 AM CDT documented in this encounter Results * Surgical pathology (08/26/2017 10:23 AM CDT) 08/26/2017 10:2 3 AM CDT 08/26/2017 1:09 PM CDT Narrative 08/29/2017 3:26 PM CDT EPIC results best viewed via link to PDF [facility] [place] [address] SURGICAL PATHOLOGY REPORT FINAL Patient Name: ?? ROXANA ANDERSEN Gender: ??F : ??1950 (Age: 67) Address: ??[facility] [place], [place] ??[address] Hospital #: ??[id number] Taken:08/26/2017 Received:08/26/2017 Reported: 08/29/2017 Patient Type: WC SDS Client ?[facility] Service: Surgery Location: [facility] Physician(s): ??Tania Steele M.D. Diagnosis: A.. ??Anorectum, transperineal biopsy ? - Connective tissue with fibrosis - No evidence of malignancy B.. ??Anus, anal canal, biopsy ? - Invasive squamous cell carcinoma, see comment ? fvw/08/29/2017 10:14 By this signature, I attest that the above diagnosis is based upon my personal examination of the slides(and/or other material indicated in the diagnosis). Jeri Dangelo M.D. Report Electronically Reviewed and Signed Out By ??Jeri Dangelo M.D. 08/29/2017 15:26:23 Microscopic Description and Comment: Microscopic examination substantiates the above cited diagnosis. ?? Histology the anal canal biopsy shows invasive squamous cell carcinoma. ??In addition, there is a focus that is suspicious, but not diagnostic for lymphovascular space invasion. ?? Histology of part B was reviewed with Dr. Ha Mccain who concurs with the diagnosis. Microscopic slide review and interpretation for this case was performed at the [facility], ??[address] [place] ??[address] ?? CLIA # [id number] History: The patient is a 67-year-old woman with a history of anal cancer. ??Status post chemotherapy radiation treatment with persistent ulcer bed of the tumor site. ??Operative procedure: Exam under anesthesia with rectal biopsy. Specimen(s) Received: A: Transperineal biopsy B: Anal canal Gross Description: Received in formalin labeled with the patient's name and transperineal biopsy are two cores of white fibrous tissue measuring 0.6 x 0.1 x 0.1 cm and 0.7 x 0.2 x 0.1 cm. ??Labeled A1. ??Jar 0. Received in formalin labeled with the patient's name and anal canal is a 0.7 x 0.5 x 0.3 cm piece of irizarry and red tissue. ??Labeled B1. ??Jar 0. 08/26/2017 18:16 VERONICA Ji By this signature, I attest that the above diagnosis is based upon my personal examination of the slides(and/or other material). The performance characteristics of some immunohistochemical stains, fluorescence in-situ hybridization tests and immunophenotyping by flow cytometry cited in this report (if any) were determined by the Surgical Pathology Department at [facility] as part of an ongoing senior data quality analyst program and in compliance with federally mandated regulations drawn from the Clinical Laboratory Improvement Act of 1988 (CLIA '88). ??Some of these tests rely on the use of analyte specific reagents and are subject to specific labeling requirements by the US Food and Drug Administration. ??Such diagnostic tests may only be performed in a facility that is certified by the Department of Health and Human Services as a high complexity laboratory under CLIA '88. ??The FDA has determined that such clearance or approval is not necessary. ??This test is used for clinical purposes. ??It should not be regarded as investigational or for research. ??Nevertheless, federal rules concerning the medical use of analyte specific reagents require that the following disclaimer be attached to the report: This test was developed and its performance characteristics determined by the Surgical Pathology Department of [facility]. ??It has not been cleared or approved by the U. S. Food and Drug Administration. IMAGES AND SCANNED DOCUMENTS, IF INCLUDED, ONLY VIEWABLE IN PDF VERSION OF REPORT Tania Steele MD LAB PATHOLOGY ORDERABLES Fin al Result * POC ISTAT (08/26/2017 10:05 AM CDT) K POC 3.7 3.5 - 4.5 mmol/L ARVIND GARCIA Blood specimen (specimen) 08/26/2017 10:05 AM CDT 08/26/2017 10:05 AM CDT Narrative ARVIND GARCIA - 08/26/2017 10:07 AM CDT Tania Steele MD LAB BLOOD ORDERABLES Final R esult [facility] [address] [address] [place] [address] documented in this encounter Visit Diagnoses Diagnosis Anal cancer (CMS/HCC) (HCC)- Primary Malignant neoplasm of anus, unspecified site Anal cancer (CMS/HCC) (HCC) Malignant neoplasm of anus, unspecified site documented in this encounter Admitting Diagnoses Diagnosis Anal cancer (CMS/HCC) (HCC) Malignant neoplasm of anus, unspecified site documented in this encounter Administered Medications Inactive Administered Medications - up to 3 most recent administrations Medication Order MAR Action Action Date Dose Rate Site bupivacaine-epinephrine (MARCAINE w/EPI) 0.25 %-1:200,000 injection As needed, Starting on Tue08/26/17 at 1021, Intra-Op Given 08/26/2017 10:21 AM CDT 40 mL Surgical Site Lactated Ringer's (LR) infusion 30 mL/hr, intravenous, Continuous, Starting on Tue08/26/17 at 1045, Pre-Op New Bag 08/26/2017 10:04 AM CDT 30 mL/hr 30 mL/hr sodium chloride 0.9 % irrigation As needed, Starting on Tue08/26/17 at 1021, Intra-Op Given 08/26/2017 10:21 AM CDT 1,000 mL Surgical Site documented in this encounter Discontinued Medications Medication Sig Discontinue Reason Start Date End Da te ibandronate (BONIVA) 150 mg tablet Therapy completed 08/25/2017 documented as of this encounter Historical Medications * This list may reflect changes made after this encounter. hydroCHLOROthiazi de (HYDRODIURIL) 25 mg tabletIndications :hypertension Take 1 tablet (25 mg total) by mouth as needed 07/27/2017 01/11/2024 added in this encounter Active and Recently Administered Medications Times are shown in CDT. Continuous Medication Order 08/24/2017 08/25/2017 08/26/2017 Lactated Ringer's (LR) infusion 30 mL/hr, intravenous, Continuous, Starting on Tue08/26/17 at 1045, Pre-Op 1004 (New Bag - Prov ider: Jazzmine Rueda RN)1030 (Anesthesia Volume Adjustment - Provider: Dorothy Grant CRNA) Lactated Ringer's (LR) infusion 125 mL/hr, intravenous, Continuous, Starting on Tue08/26/17 at 1130, Phase I 1105 (Stopped - Prov ider: Mojgan Doyle RN) PRN Medication Order 08/24/2017 08/25/2017 08/26/2017 acetaminophen (TYLENOL) tablet 1,000 mg 1,000 mg, oral, Once as needed, headaches, other, Breakthrough pain, Starting on Tue08/26/17 at 1059, For 1 dose, Phase I, When able to tolerate PO after consulting with Anesthesiologist., Indications: Pain bupivacaine-epinephrine (MARCAINE w/EPI) 0.25 %-1:200,000 injection (CANCELED) As needed, Starting on Tue08/26/17 at 1021, Intra-Op 1021 (Given - Provid er: Tania Steele MD) diphenhydrAMINE (BENADRYL) injection 12.5 mg 12.5 mg, intravenous, Every 5 min PRN, itching, other, For nausea, administer 25 mg IV, Starting on Tue08/26/17 at 1059, For 4 doses, Phase I, Max cumulative dose 50 mg., Indications: Itching fentaNYL (SUBLIMAZE) preservative free injection 25 mcg 25 mcg, intravenous, Every 5 min PRN, 1st line for pain, uncontrolled pain on PACU admission for outpatients, Starting on Tue08/26/17 at 1059, Phase I, Use as 1st line for Outpatients, dose not to exceed 100 mcg. Then proceed to 2nd Line at OC after consulting Anesthesiologist., Indications: Pain hydrALAZINE (APRESOLINE) injection 5 mg 5 mg, intravenous, Every 5 min PRN, high blood pressure, Starting on Tue08/26/17 at 1059, For 4 doses, Phase I, Max cumulative dose 20 mg. Dose if systolic BP greater than 180 or diastolic BP greater than 95 AND heart rate less than 70, after consulting with Anesthesiologist., Indications: hypertension HYDROcodone-acetaminophen (NORCO) 5-325 mg per tablet 1-2 tablet 1-2 tablet, oral, Once as needed, 3rd line for pain, breakthrough pain, Once as needed for pain at the OC, Starting on Tue08/26/17 at 1059, For 1 dose, Phase I, When able to tolerate PO., Indications: Pain HYDROmorphone (DILAUDID) injection 0.2 mg 0.2 mg, intravenous, Every 5 min PRN, 2nd line for pain, Use as 1st line for Inpatients at [facility].?Use Use as second line for OC after consulting with Anesthesiologist., Starting on Tue08/26/17 at 1059, Phase I, Notify Anesthesiologist if total PACU dose reaches 2 mg for inpatients and 1 mg total for outpatients and pain score 5/10 or more., Indications: Pain labetalol (NORMODYNE,TRANDATE) injection 5 mg 5 mg, intravenous, Every 5 min PRN, high blood pressure, Starting on Tue08/26/17 at 1059, For 4 doses, Phase I, Max cumulative dose 20 mg. Dose if systolic blood pressure greater than 180 AND HR greater than 70, after consulting with Anesthesiologist meperidine (DEMEROL) preservative free injection 12.5 mg 12.5 mg, intravenous, Every 10 min PRN, shivering, Starting on Tue08/26/17 at 1059, For 2 doses, Phase I, Max cumulative dose 25 mg., Indications: Shivering ondansetron (ZOFRAN) injection 4 mg 4 mg, intravenous, Once as needed, nausea, vomiting, Maximum of 8 mg total including intraoperative dose, Starting on Tue08/26/17 at 1059, For 1 dose, Phase I, Indications: Prevention of Post-Operative Nausea and Vomiting, Nausea and Vomiting scopolamine patch 72 hour 1 patch 1 patch, transdermal, Administer over 72 Hours, Once as needed, Nausea vomitting prophylaxis; Apply after consulting Anesthesiologist, Starting on Tue08/26/17 at 1004, For 1 dose, Pre-Op, Please place for all shoulder surgeries, patients with history of PONV and Motion Sickness, unless history of BPH, urinary retention, or Glaucoma., Indications: Motion Sickness, Prevention of Post-Operative Nausea and Vomiting, Apply only if approved by Anesthesiolgist sodium chloride 0.9 % irrigation (CANCELED) As needed, Starting on Tue08/26/17 at 1021, Intra-Op 1021 (Given - Provid er: Tania Steele MD) sodium chloride 0.9% flush 0.5-20 mL 0.5-20 mL, intra-catheter, As needed, line care, Keep [place] Block IV Saline lock open., Starting on Tue08/26/17 at 1004, Pre-Op, Flush volume based on line type and size. Flush before and after each use. , Indications: Flushing documented in this encounter Orders Medications Ordered That Omari ht Not Have Been Administered Count Last Ordered Date First Ordered Date acetaminophen (TYLENOL) tablet 1,000 mg 1 0 08/26/2017 diphenhydrAMINE (BENADRYL) i njection 12.5 mg 1 08/26/2017 fentaNYL (SUBLIMAZE) preserv ative free injection 25 mcg 1 08/26/2017 hydrALAZINE (APRESOLINE) injection 5 mg 1 0 08/26/2017 HYDROcodone-acetaminophen (N ORCO) 5-325 mg per tablet 1-2 tablet 1 08/26/2017 HYDROmorphone (DILAUDID) injection 0.2 mg 1 08/26/2017 labetalol (NORMODYNE,TRANDAT E) injection 5 mg 1 08/26/2017 Lactated Ringer's (LR) infusion 8 meperidine (DEMEROL) preserv ative free injection 12.5 mg 1 08/26/2017 ondansetron (ZOFRAN) injection 4 mg 1 08/26 scopolamine patch 72 hour 1 patch 1 018 sodium chloride 0.9% flush 0.5-20 mL 1 07/30 Lab Orders Without Results Count Last Ordered D ate First Ordered Date SURGICAL PATHOLOGY 1 08/26/2017 Diet Count Last Ordered Date First Orde red Date ADULT DISCHARGE DIET 1 08/26/2017 Nursing Count Last Ordered Date First Orde red Date DISCHARGE ACTIVITY 1 08/26/2017 DISCHARGE CALL PROVIDER 6 08/26/2017 FOLLOW UP WITH PROVIDER 1 08/26/2017 documented in this encounter Care Teams Weatherization Installer Relationship Specialty Start Date End Date Heron Ricci DO PCP - General 04/19/16 Ignacio Canela MD Consulting Physician Radiation Oncology 08/12/17 2 documented as of this encounter
--- OUTSIDE RECORDS SUMMARY | 2024-02-28 09:03 | XMS_ITS | Encounter Summary ---
Author Organization [facility] Address [address] [facility] [address] [place] [address] Phone Care Team Providers Care Meter Mechanic Name Role Phone Heron Ricci DO Primary Care Provider [phone] Ignacio Canela MD Unavailable [phone] Reason for Referral * Diagnostic Imaging (Routine) - Closed Specialty Diagnoses / Procedures Referred By Contlaya t Referred To Contact Radiology Diagnoses Anal cancer (CMS/HCC) (HCC) Procedures PET/CT FDG Skull to Thigh Talon Steele MD Phone: tel: fax: [facility] [address] [place] [address] Referral ID Status Reason Start Date Expiration Date Visits Re quested Visits Authorized [id number] Closed 09/13/2017 12/12/2017 1 1 Encounter Details Date Type Department Care Team (Late st Contact Info) Description 09/09/2017 Orders Only [facility] Surgery [address] [facility] 2nd Floor [address] [place] [address] Talon Steele MD [address] [facility] [id number] [place], [place] [id number] Anal cancer (CMS/HCC) (Primary Dx) Social History Tobacco Use Types Packs/Day Years Used Date Smoking Tobacco: Former Smokeless Tobacco: Never Alcohol Use Standard Drinks/Week Comments Yes 5 (1 standard drink = 0.6 oz pur e alcohol) Comments No Sex and Gender Information Value Date Recorded Sex Assigned at Not on file Legal Sex Female 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 ??Increased extent of FDG avid anal mass compatible with disease progression. The mass approximates the adjacent vagina and fistulous communication cannot be ruled out, especially given history of radiation and ulceration. Consider dedicated MRI to further evaluate. 2. ??No evidence of FDG avid metastasis. Electronically signed by: Brittany Vanessa M.D. Narrative 09/16/2017 10:37 AM CDT EXAMINATION: TUMOR FDG-PET/CT IMAGING DATE OF STUDY: ??09/16/2017 SCANNER: mCT RADIOPHARMACEUTICAL: 13.8 mCi F-18 Fluorodeoxyglucose (FDG) i.v. 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 ??The study is requested for restaging after completion of therapy. Subsequent treatment strategy. TECHNIQUE: ?? The patient's fasting blood glucose level, measured by glucometer before injection of FDG, was 99 mg/dL. ??-Gastroview was given orally. ??After intravenous administration of FDG, noncontrast CT images were obtained for attenuation correction and for fusion with emission PET images to allow for anatomical localization of PET findings. ??Emission PET images were then obtained. ??The study was interpreted on the G-cluster workstation. ??The mean liver SUV (reported for software quality manager purposes) is 2.1. ?? The total scanned area was skull base to the proximal thighs. ??Images of the body were obtained starting 66 minutes after injection of tracer. COMPARISON: PET CT 09/01/2016. Multiple prior abdominal and pelvic CT studies.. FINDINGS: There is mild misregistration between the PET and CT component in the pelvis secondary to patient motion. Increased extent of FDG uptake associated within the mass centered in the anus extending to into the distal rectum measuring approximately 4.3 x 4.1 cm (though difficult to accurately measure) with SUV max of 10.4, previously with SUV max of 9.1 (best demonstrated on image 281). FDG uptake approximates the adjacent vagina, though misregistration artifact limits evaluation. No evidence of FDG avid metastasis. Bilateral breast implants are redemonstrated with soft tissue density and associated low-level FDG uptake anterior to the right implant likely reflecting extravasated silicone. Sequela of prior radiation to the pelvis redemonstrated. 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 ??Apical blebs are redemonstrated. Coronary artery and aortic arch calcifications are present. ??Stable right ovarian hemorrhagic cyst with internal calcification. ??Stable postsurgical changes in the lumbar spine with grade 1 anterolisthesis of L3 on L4 and resulting degenerative change with low level FDG uptake. ??Colonic diverticuli are redemonstrated. Procedure Note Brittany Vanessa MD - 09/16/2017 EXAMINATION: TUMOR FDG-PET/CT IMAGING DATE OF STUDY: 09/16/2017 SCANNER: mCT RADIOPHARMACEUTICAL: 13.8 mCi F-18 Fluorodeoxyglucose (FDG) i.v. 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 The study is requested for restaging after completion of therapy. Subsequent treatment strategy. TECHNIQUE: The patient's fasting blood glucose level, measured by glucometer before injection of FDG, was 99 mg/dL. MD-Gastroview was given orally. After intravenous administration of FDG, noncontrast CT images were obtained for attenuation correction and for fusion with emission PET images to allow for anatomical localization of PET findings. Emission PET images were then obtained. The study was interpreted on the G-cluster workstation. The mean liver SUV (reported for software quality manager purposes) is 2.1. The total scanned area was skull base to the proximal thighs. Images of the body were obtained starting 66 minutes after injection of tracer. COMPARISON: PET CT 09/01/2016. Multiple prior abdominal and pelvic CT studies.. FINDINGS: There is mild misregistration between the PET and CT component in the pelvis secondary to patient motion. Increased extent of FDG uptake associated within the mass centered in the anus extending to into the distal rectum measuring approximately 4.3 x 4.1 cm (though difficult to accurately measure) with SUV max of 10.4, previously with SUV max of 9.1 (best demonstrated on image 281). FDG uptake approximates the adjacent vagina, though misregistration artifact limits evaluation. No evidence of FDG avid metastasis. Bilateral breast implants are redemonstrated with soft tissue density and associated low-level FDG uptake anterior to the right implant likely reflecting extravasated silicone. Sequela of prior radiation to the pelvis redemonstrated. 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 Apical blebs are redemonstrated. Coronary artery and aortic arch calcifications are present. Stable right ovarian hemorrhagic cyst with internal calcification. Stable postsurgical changes in the lumbar spine with grade 1 anterolisthesis of L3 on L4 and resulting degenerative change with low level FDG uptake. Colonic diverticuli are redemonstrated. IMPRESSION: 1. Increased extent of FDG avid anal mass compatible with disease progression. The mass approximates the adjacent vagina and fistulous communication cannot be ruled out, especially given history of radiation and ulceration. Consider dedicated MRI to further evaluate. 2. No evidence of FDG avid metastasis. Electronically signed by: Brittany Vanessa M.D. us Talon Steele MD IMG PET PROCEDURES Final Res ult documented in this encounter Visit Diagnoses Diagnosis Anal cancer (CMS/HCC) (HCC)- Primary Malignant neoplasm of anus, unspecified site Anal cancer (CMS/HCC) (HCC) Malignant neoplasm of anus, unspecified site documented in this encounter Care Teams Meter Mechanic Relationship Specialty Start Date End Date Heron Ricci DO PCP - General 04/19/16 Ignacio Canela MD Consulting Physician Radiation Oncology 08/12/17 2 documented as of this encounter
--- OUTSIDE RECORDS SUMMARY | 2024-02-28 09:03 | XMS_ITS | Encounter Summary ---
Author Organization [facility] Address [address] [place] [address] Care Team Providers Care Ballistics Tester Name Role Phone Heron Ricci DO Primary Care Provider [phone] Ignacio Canela MD Unavailable [phone] Reason for Referral * Diagnostic Imaging (Routine) - Closed Specialty Diagnoses / Procedures Referred By Emilia t Referred To Contact Radiology Diagnoses Anal cancer (CMS/HCC) (HCC) Procedures PET/CT FDG Skull to Thigh Talon Steele MD Phone: tel: fax: [address] [address] Referral ID Status Reason Start Date Expiration Date Visits Re quested Visits Authorized [id number] Closed 09/13/2017 12/12/2017 1 1 Reason for Visit * Diagnostic Imaging (Routine) - Closed Specialty Diagnoses / Procedures Referred By Emilia berkowitz Referred To Contact Radiology Diagnoses Anal cancer (CMS/HCC) (HCC) Procedures PET/CT FDG Skull to Thigh Talon Steele MD Phone: tel: fax: [address] [address] Referral ID Status Reason Start Date Expiration Date Visits Re quested Visits Authorized [id number] Closed 09/13/2017 12/12/2017 1 1 Encounter Details Date Type Department Care Team (Latest Contact Info) Description 09/16/2017 6:20 AM CDT - 09/16/2017 11:59 PM CDT Hospital Encounter [facility] [address] [place] [address] Talon Steele MD [phone] [place] [address] Anal cancer (CMS/HCC) Discharge Disposition: Discharge to home or self care Social History Tobacco Use Types Packs/Day Years Used Date Smoking Tobacco: Former Smokeless Tobacco: Never Alcohol Use Standard Drinks/Week Comments Yes 5 (1 standard drink = 0.6 oz pur e alcohol) Comments No Sex and Gender Information Value Date Recorded Sex Assigned at Not on file 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 Gender Identity Not on file Sexual Orientation Not on file documented as of this encounter Last Filed Vital Signs Vital Sign Reading Time Taken Comments Blood Pressure - - Pulse - - Temperature - - Respiratory Rate - - Oxygen Saturation - - Inhaled Oxygen Concentration - - Weight 79.8 kg (176 lb) 09/16/2017 7:10 AM CDT Height 160 cm (5' 3 ) 09/16/2017 7:10 AM CDT Body Mass Index 31.18 09/16/2017 7:10 AM CDT documented in this encounter Medications at Time of Discharge naproxen (ALEVE) 220 mg tablet Take 1 tablet (220 mg total) by mouth every 12 (twelve) hours as needed omega 3-rmo-edd-fish oil 300-1,000 mg capsule Take 1 capsule [...] (two) times a day as needed 01/11/2024 [id number]-B 72-S-anqaraey 500 mg calcium- 400 unit-15 mcg tablet [...] THIGH Schedule Routine, Read Routine (OP Routine) 09/16/2017 8:30 AM CDT Anal cancer (CMS/HCC) documented in this encounter Results * [...] before injection of FDG, was 99 mg/dL. ??TIFFANIEGastrodomenic was given orally. ??After intravenous administration of FDG, noncontrast CT images were obtained for attenuation correction and for fusion with emission PET images to allow for anatomical localization of PET findings. ??Emission PET images were then obtained. ??The study was interpreted on the [employer]elligent Apps (mytaxi) workstation. ??The mean liver SUV (reported for quality control engineer purposes) is 2.1. ?? The total scanned [...] obtained. The study was interpreted on the [employer]elligent Apps (mytaxi) workstation. The mean liver SUV (reported for quality control engineer purposes) is 2.1. The total scanned area [...] encounter Visit Diagnoses Diagnosis Anal cancer (CMS/HCC) (HCC) Malignant neoplasm of anus, unspecified site documented in this encounter Administered Medications Inactive Administered Medications - up to 3 most recent administrations Medication Order MAR Action Action Date Dose Rate Site diatrizoate meglumine-diatrizoat e sodium (GASTROGRAFIN/MD-GAS TROVIEW) 66-10 % solution 7 mL 7 mL, oral, Once in imaging, contrast, Starting on Tue09/16/17 at 0713, For 1 dose, Indications: Digestive System RadiographyIndicatio ns:Digestive System Radiography Given 09/16/2017 8:30 AM CDT 7 mL f-18 fdg injection 15 millicurie 15 millicurie, intravenous, Once in imaging, radiopharmaceutical, Starting on Tue09/16/17 at 0713, For 1 dose Given 09/16/2017 7:10 AM CDT 13.75 millicuries Left Antecubital documented in this encounter Care Teams Ballistics Tester Relationship Specialty Start Date End Date Heron Ricci DO PCP - General 04/19/16 Ignacio Canela MD Consulting Physician Radiation Oncology 08/12/17 2 documented as of this encounter
--- OUTSIDE RECORDS SUMMARY | 2024-02-28 09:03 | XMS_ITS | Encounter Summary ---
Author Organization [facility] Healthcare Address [address] [place] [address] Care Team Providers Care Adult School Counselor Name Role Phone Heron Ricci DO Primary Care Provider [phone] Ignacio Canela MD Unavailable [phone] Encounter Details Date Type Department Care Team (Latest Contact Info) Description 08/26/2017 7:35 AM CDT - 08/26/2017 11:06 AM CDT Hospital Encounter [facility] Operating [address] [address] [place] [address] Tania Steele MD [address] [facility] [phone] [place], [place] [id number] Anal cancer (CMS/HCC) Discharge Disposition: Discharge to home or self care Social History Tobacco Use Types Packs/Day Years Used Date Smoking Tobacco: Former Smokeless Tobacco: Never Alcohol Use Standard Drinks/Week Comments Yes 5 (1 standard drink = 0.6 oz pur e alcohol) Comments No Sex and Gender Information Value Date Recorded Sex Assigned at Not on file 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 Gender Identity Not on file Sexual Orientation Not on file documented as of this encounter Last Filed Vital Signs Vital Sign Reading Time Taken Comments Blood Pressure 141/98 08/26/2017 10:55 AM CDT Pulse 78 08/26/2017 10:50 AM CDT Temperature 36.2 ??C (97.2 ??F) 08/26/2017 10:38 AM C DT Respiratory Rate 16 08/26/2017 10:38 AM CDT Oxygen Saturation 96% 08/26/2017 10:50 AM CDT Inhaled Oxygen Concentration - - Weight - - Height - - Body Mass Index - - documented in this encounter Medications at Time of Discharge naproxen (ALEVE) 220 mg tablet Take 1 tablet (220 mg total) by mouth every 12 (twelve) hours as needed omega 4-cpz-qgs-fish oil 300-1,000 mg capsule Take 1 capsule [...] (two) times a day as needed 01/11/2024 [id number]-B 77-G-hjrpkcnm 500 mg calcium- 400 unit-15 mcg tablet [...] Cancer - (Added by TW Conv) ??? Bladder Cancer Brother Family history [...] 10:00 AM CDT SURGEON Tania Steele MD BODY CLEANER: Eduard Hightower PREOPERATIVE DIAGNOSIS: History of anal [...] Attending Surgeon: Tania Steele MD Surgical Team: Medical Device: Alicia Ray RN Scrub: Cyndi Nuno SA [...] Wear comfortable clothing. Check in at the frontend engineer at [facility] off of [address]. You need to have a bus driver with you to take you home [...] results best viewed via link to PDF [facility] [place] [address] SURGICAL PATHOLOGY REPORT FINAL Patient Name: ?? ROXANA ANDERSEN Gender: ??F : ??1950 (Age: 67) Address: ??[facility] [address], [place], [place] ??[address] Hospital #: ??[id number] Taken:08/26/2017 Received:08/26/2017 Reported: 08/29/2017 Patient Type: WC [facility] Client ?[facility] Service: Surgery Location: [facility] Physician(s): ??Tania Steele M.D. Diagnosis: A.. [...] for this case was performed at the [facility], ??[address] [place] ??[address] ?? CLIA # [id number] History: The patient is a 67-year-old woman [...] by the Surgical Pathology Department at [facility] as part of an ongoing quality assurance assessor program and in compliance with federally mandated [...] determined by the Surgical Pathology Department of [facility]. ??It has not been cleared or approved by the U. S. Food and Drug Administration. IMAGES AND SCANNED DOCUMENTS, IF INCLUDED, ONLY VIEWABLE IN PDF VERSION OF REPORT us Tania Steele MD LAB PATHOLOGY ORDERABLES Fin al Result * POC ISTAT (08/26/2017 10:05 AM CDT) K POC 3.7 3.5 - 4.5 mmol/L ARVIND GARCIA Blood specimen (specimen) 08/26/2017 10:05 AM CDT 08/26/2017 10:05 AM CDT Narrative ARVIND GARCIA - 08/26/2017 10:07 AM CDT us Tania Steele MD LAB BLOOD ORDERABLES Final R esult ARVIND GARCIA [address] [facility]. [employer] [place] [address] documented in this encounter Visit Diagnoses Diagnosis Anal cancer (CMS/HCC) (HCC)- Primary Malignant neoplasm of anus, unspecified site documented in this encounter Admitting Diagnoses Diagnosis Anal cancer (CMS/HCC) (HCC) Malignant neoplasm of anus, unspecified site documented in this encounter Administered Medications Inactive Administered Medications - up to 3 most recent administrations Medication Order MAR Action Action Date Dose Rate Site Lactated Ringer's (LR) infusion 30 mL/hr, intravenous, Continuous, Starting on Tue08/26/17 at 1045, Pre-Op New Bag 08/26/2017 10:04 AM CDT 30 mL/hr 30 mL/ hr documented in this encounter Discontinued Medications Medication [...] 1004 (New Bag - Prov ider: Jazzmine Rueda, CANDY)1030 (Anesthesia Volume Adjustment - Provider: Dorothy Grant [...] Use as 1st line for Inpatients at [facility].?Use Use as second line for OC [...] mL, intra-catheter, As needed, line care, Keep Charleen Block IV Saline lock open., Starting on Tue08/26/17 at 1004, Pre-Op, Flush volume based on line type and size. Flush before and after each use. , Indications: Flushing documented in this encounter Orders Medications Ordered That Omari ht Not Have Been Administered Count Last Ordered Date First Ordered Date acetaminophen (TYLENOL) tablet 1,000 mg 1 0 08/26/2017 bupivacaine-epinephrine (MAR DIVINE w/EPI) 0.25 %-1:200,000 injection 1 08/26/2017 diphenhydrAMINE (BENADRYL) i njection 12.5 mg [...] hour 1 patch 1 018 sodium chloride 0.9 % irrigation 1 08/27/19 18 sodium chloride 0.9% flush 0.5-20 mL 1 07/30 Lab Orders Without Results Count Last Ordered D ate First Ordered Date SURGICAL PATHOLOGY 08/26/2017 Diet Count Last Ordered Date First Orde red Date ADULT DISCHARGE DIET 1 08/26/2017 Nursing Count Last Ordered Date First Orde red Date DISCHARGE ACTIVITY 1 08/26/2017 DISCHARGE CALL PROVIDER 6 08/26/2017 FOLLOW UP WITH PROVIDER 08/26/2017 documented in this encounter Care Teams Adult School Counselor Relationship Specialty Start Date End Date Heron Ricci DO PCP - General 04/19/16 Ignacio Canela MD Consulting Physician Radiation Oncology 08/12/17 2 documented as of this encounter
--- OUTSIDE RECORDS SUMMARY | 2024-02-28 09:03 | XMS_ITS | Encounter Summary ---
Author Organization [facility] Healthcare Address [address] [place] [address] Care Team Providers Care Plastics Plater Name Role Phone Heron Ricci DO Primary Care Provider [phone]- [phone] Ignacio Canela MD Unavailable [phone] Encounter Details Date Type Department Care Team (Late st Contact Info) Description 10/19/2017 4:05 PM CDT Ancillary Procedure [facility] Vascular Lab [address] [place] [address] Tania Steele MD [address] [facility] [phone] [place] [address] Social History Tobacco Use Types Packs/Day Years Used Date Smoking Tobacco: Former Cigarettes 1 45 1 966 - 2010 Smokeless Tobacco: Never Alcohol Use Standard Drinks/Week Comments Yes 5 (1 standard drink = 0.6 oz pur e alcohol) Comments No Sex and Gender Information Value Date Recorded Sex Assigned at Not on file 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 Gender Identity Not on file Sexual Orientation Not on file documented as of this encounter Plan of Treatment Not on file documented as of this encounter Procedures Procedure Name Priority Date/Time Associated Diagnosis Comments US VEIN DUPLEX LOWER EXTREMITY BILATERAL COMPLETE ED Urgent/IP Urgent 10/19/2017 4:39 PM CDT documented in this encounter Results * US Vein Duplex Lower Extremity Bilateral Complete (10/19/2017 4:39 PM CDT) Anatomical Region Laterality Modality Vascular Bilateral Ultrasound 10/19/2017 4:16 PM CDT Narrative 10/22/2017 3:13 PM CDT [facility] - Department of Vascular Surgery, Vascular Laboratory [address] [place] [address] Lower Extremity Venous Ultrasound Report Patient Name: ROXANA ANDERSEN S : 1950 (67y 6m) Study Date: 10/19/2017 4:16:08 PM Gender: F Tech: AC Location: [id number] Ref.Provider: TANIA STEELE Height(Cm): BSA: Weight(Kg): Quality: Adequate Order Provider: TANIA STEELE Procedures: Vascular Report: Venous Duplex imaging was performed bilaterally in the lower extremities. The common femoral, femoral, popliteal, posterior tibial, peroneal veins were evaluated for patency, spontaneity and phasicity with Doppler, compression and augmentation maneuvers. Great saphenous vein proximal at the junction was evaluated with compression maneuvers. Indications: Pain in right leg. Findings: Performing Chenille Machine Operator: Clarita Isaacs RVT. Bilateral: Venous Doppler signals in the bilateral lower extremity are within normal limits for spontaneity and phasicity and respond normally to augmentation maneuvers. No evidence of deep vein thrombus by duplex, proximal to the calf. Conclusions: There is no evidence of acute deep vein thrombosis in the lower extremities bilaterally. Noninvasive venous studies cannot rule out isolated calf vein obstruction. History: Cancer, COPD, HTN, Former smoker. Previous Studies: No previous studies for comparison. Disclaimer: The signing physician has reviewed all images pertaining to this test. These images and this report will be retained in the patient chart by the Vascular Laboratory for the legally required time period. This chart constitutes the legal record of any testing performed. Electronically Signed By: Donny Barreto MD [facility] 2017-10-22 15:13:27 CDT CC: CC: Procedure Note Donny Barreto MD - 10/22/2017 [facility] - Department of Vascular Surgery,Vascular Laboratory [address] [place] [address] Lower Extremity Venous Ultrasound Report Patient Name: ROXANA ANDERSEN SPatient ID: [id number] : 1950 (67y 6m)Study Date: 10/19/2017 4:16:08 PM Gender: FAccession #: [id number] Tech: ACLocation: [id number] Ref.Provider: TANIA STEELEHeight(Cm): BSA: Weight(Kg): Quality: AdequateOrder Provider: TANIA STEELE Procedures: Vascular Report: Venous Duplex imaging was performed bilaterally in the lower extremities.The common femoral, femoral, popliteal, posterior tibial, peroneal veins wereevaluated for patency, spontaneity and phasicity with Doppler, compression and augmentationmaneuvers. Great saphenous vein proximal at the junction was evaluated with compressionmaneuvers. Indications: Pain in right leg. Findings: Performing Chenille Machine Operator: Clarita Isaacs RVT. Bilateral: Venous Doppler signals in the bilateral lower extremity are within normallimits for spontaneity and phasicity and respond normally to augmentation maneuvers.No evidence of deep vein thrombus by duplex, proximal to the calf. Conclusions: There is no evidence of acute deep vein thrombosis in the lowerextremities bilaterally. Noninvasive venous studies cannot rule out isolated calf veinobstruction. History: Cancer, COPD, HTN, Former smoker. Previous Studies: No previous studies for comparison. Disclaimer: The signing physician has reviewed all images pertaining to this test.These images and this report will be retained in the patient chart by the VascularLaboratory for the legally required time period. This chart constitutes the legal record ofany testing performed. Electronically Signed By: Donny Barreto MD FACS 2017-10-22 15:13:27 CDT CC: CC: us Tania Steele MD [facility] PROCEDURES Final Resu lt documented in this encounter Visit Diagnoses Not on filedocumented in this encounter Care Teams Plastics Plater Relationship Specialty Start Date End Date Heron Ricci DO PCP - General 04/19/16 Ignacio Canela MD Consulting Physician Radiation Oncology 08/12/17 2 documented as of this encounter
--- OUTSIDE RECORDS SUMMARY | 2024-02-28 09:03 | XMS_ITS | Encounter Summary ---
Author Organization [facility] Healthcare Address [address] [place] [address] Care Team Providers Care Global Account Executive Name Role Phone Heron Ricci DO Primary Care Provider [phone]- [phone] Ignacio Canela MD Unavailable [phone] Encounter Details Date Type Department Care Team (Late st Contact Info) Description 08/26/2017 10:08 AM CDT Anesthesia Event [facility] Operating Room [address] [place] [address] Jhonathan Cope MD [address] [facility] [address] [place], [place] [id number] Anesthesia Record Procedure Summary Procedure Name Responsible Anesthesiologist Anesthesia Start Time Anesthesia Stop Time EXAM UNDER ANESTHESIA WITH RECTAL BIOPSY (Vagina) Jhonathan Cope MD 08/26/17 1008 08/26/17 1034 Events Date Time Event Comment 08/26/2017 0959 AN Equip Check 1003 1008 An Start 1013 In Room 1013 An Start Data 1015 Start Supplemental O2 1015 An Induction The patient was reevaluated immediately before moderate or deep sedation use and before anesthesia induction. 1015 Anesthesia Ready 1023 Quick Note Heart rate and pulse do not match. Pulse correct 1026 Proc Fin 1029 an stop data 1033 Handoff to RN I completed my handoff to the receiving nurse during which we: 1. Patient identified 2. Responsible provider identified 3. Pertinent medical history reviewed 4. Procedure type and surgical course discussed 5. Intraoperative anesthetic management and any significant issues discussed 6. Expectations and concerns for postop period discussed 7. Questions solicited from receiving nurse 8. Patient disposition at the time of handoff: No value filed. 1034 An Stop 1037 Out of Room Meds Name Total midazolam 2 mg/2 mL 2 mg fentaNYL PF 100 mcg lidocaine 1 % PF 50 mg propofol 120 mg Lactated Ringer's (LR) infusion 400 mL * Agents Name O2 * Blood No blood administrations on file. Lines, Drains, and Airways Type Details Placement Removal RETIRED Surgical Site 08/26/17; 1002; Rectum; 01/31/24 (Retired LDA, Removed/Completed by [employer]Surge with LDA Utility); 1213 (Retired LDA, Removed/Completed by EdSurge with LDA Utility) 08/26/17 1002 by Alicia Ray RN 01/31/24 1213 by Discharge Provider, Automatic Peripheral IV Placement Date: 08/26/17; Placement Time: 1003; Catheter Size: 22 G; Orientation: Left; Location: Forearm; Site Prep: Chlorhexidine; Technique: Anatomical landmarks; Inserted by: noe; Insertion Attempts: 2; Patient Tolerance: Tolerated well; Removal Date: 08/26/17; Removal Time: 1104 08/26/17 1003 by Jazzmine Rueda RN 08/26/17 1104 by Mojgan Doyle RN documented in this encounter Social History Tobacco Use Types Packs/Day Years Used Date Smoking Tobacco: Former Smokeless Tobacco: Never Alcohol Use Standard Drinks/Week Comments Yes 5 (1 standard drink = 0.6 oz pur e alcohol) Comments No Sex and Gender Information Value Date Recorded Sex Assigned at Not on file 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 Gender Identity Not on file Sexual Orientation Not on file documented as of this encounter OR Notes * Anesthesia Postprocedure Evaluation - Jhonathan Cope MD - 08/26/2017 11:02 AM CDT Patient: Roxana Andersen Procedure Summary Date: 08/26/17 Room / Location: [facility] MAIN OPERATING ROOM / [facility] OPERATING ROOM Anesthesia Start: 1008 Anesthesia Stop: 1034 Procedure: EXAM UNDER ANESTHESIA WITH RECTAL BIOPSY (N/A Vagina) Diagnosis: Anal cancer (CMS/HCC) (Anal cancer (CMS/HCC) [C21.0]) Surgeon: Talon Steele MD Responsible Provider: Jhonathan Cope MD Anesthesia Type: MAC ASA Status: 3 Anesthesia Type: MAC Last vitals BP 141/98 (08/26/17 1050) Temp 36.2 ??C (97.2 ??F) (08/26/17 1038) Pulse 78 (08/26/17 1050) Resp 16 (08/26/17 1038) SpO2 96 % (08/26/17 1050) Anesthesia Post Evaluation Patient location during evaluation: PACU Patient participation: complete - patient participated Level of consciousness: fully awake Pain score: 0 Pain management: adequate Airway patency: adequate Evidence of recall: no Anesthetic complications: no Cardiovascular status: hemodynamically stable and acceptable Respiratory status: acceptable and room air Hydration status: acceptable Pt is: normothermic Nausea/Vomiting status: none * Anesthesia Preprocedure Evaluation - Jhonathan Cope MD - 08/26/2017 10:03 AM CDT Anesthesia Evaluation Roxana Andersen is a 67 y.o. female Procedure(s): EXAM UNDER ANESTHESIA WITH RECTAL BIOPSY Patient Active Problem List Diagnosis ??? Anal cancer (CMS/HCC) Past Medical History: Diagnosis Date ??? Anal cancer (CMS/HCC) tx. with chemo & radiation ??? COPD (chronic obstructive pulmonary disease) (CMS/HCC) ??? Hypertension ??? Nonruptured cerebral aneurysm Cerebral [...] UNDER ANESTHESIA 12/23/2016 EUA with biopsy ??? EXPLORATORY LAPAROTOMY ??? INTRACRANIAL ANEURYSM REPAIR coiling 2005 ??? MASTOPEXY ??? RECTAL BIOPSY ??? TUBAL LIGATION OB History No data available Allergies Allergen Reactions ??? Codeine Nausea only Reaction: NAUSEA, ??? Sulfa (Sulfonamide Antibiotics) Nausea only HOME MEDICATIONS : acetaminophen (TYLENOL EXTRA STRENGTH) 500 mg tablet aspirin 81 mg chewable tablet budesonide-formoterol (SYMBICORT) 80-4.5 mcg/actuation inhaler [id number]-fhrwckij 500 mg calcium- 400 unit-15 mcg tablet hydroCHLOROthiazide (HYDRODIURIL) 25 mg tablet losartan (COZAAR) 100 mg tablet naproxen (ALEVE) 220 mg tablet omega 4-lmy-tfn-fish oil 300-1,000 mg capsule vitamin E 400 unit capsule No current facility-administered medications for this encounter. Social History Smoking Status ??? Former Smoker Smokeless Tobacco ??? Never Used Alcohol Use ??? 3.0 oz/week ??? 5 Standard drinks or equivalent per week Drug Use No Family History Problem Relation Age of Onset ??? Heart disease Father Heart Disease - (Added by [employer]) ??? Diabetes Other Diabetes Mellitus - (Added by [employer]) ??? Cancer Other Cancer - (Added by [employer]) ??? Breast cancer Mother Breast Cancer - (Added by [employer]) ??? Bladder Cancer Brother Family history of bladder cancer - (Added by [employer]) PAT Physical Exam Vitals: 08/26/17 0957 BP: 159/99 Pulse: 72 Resp: 16 Temp: 36.6 ??C (97.9 ??F) SpO2: 92% PT: No results found for requested labs within last 720 hours. INR: No results found for requested labs within last 720 hours. APTT: No results found for requested labs within last 720 hours. Hgb A1C: No results found for requested labs within last 720 hours. CBC RBC: No results found for requested labs within last 720 hours. RDW: No results found for requested labs within last 720 hours. MCHC: No results found for requested labs within last 720 hours. MCH: No results found for requested labs within last 720 hours. MCV: No results found for requested labs within last 720 hours. Hct: No results found for requested labs within last 720 hours. Hgb: No results found for requested labs within last 720 hours. WBC: No results found for requested labs within last 720 hours. MPV: No results found for requested labs within last 720 hours. Platelets: No results found for requested labs within last 720 hours. RDW CV: No results found for requested labs within last 720 hours. RDW Sd: No results found for requested labs within last 720 hours. BMP Glucose: No results found for requested labs within last 720 hours. Calcium: No results found for requested labs within last 720 hours. Sodium: No results found for requested labs within last 720 hours. Potassium: No results found for requested labs within last 720 hours. CO2: No results found for requested labs within last 720 hours. Chloride: No results found for requested labs within last 720 hours. BUN: No results found for requested labs within last 720 hours. Creatinine: No results found for requested labs within last 720 hours. DOS Physical Exam Medical history, medications, and allergies reviewed. Attestation: I endorse the findings of the anesthesia pre-evaluation assessment dated: 08/26/2017. Airway Exam: Mallampati: II Cervical ROM: FROM Cardiovascular Exam: Rate: regular Rhythm: regular Pulmonary Exam: LCTA, bilat Anesthesia Plan ASA 3 My patient is approved for the Anesthesia Controlled Medication protocol when under care of a CHILDREN'S CHOIR DIRECTOR Planned anesthesia: MAC Informed Consent: Anesthesia plan and risks discussed with patient. Consent and Attending signature: I and/or my designee have discussed the anesthesia plan, benefits, possible alternatives, parental presence at time of induction (if indicated), and clinically relevant risks that may include dental injury, unintentional awareness, and/or other complications. The patient and/or parent/legal guardian understand, and agree to proceed. All questions answered. documented in this encounter Plan of Treatment Not on file documented as of this encounter Visit Diagnoses Not on filedocumented in this encounter Administered Medications Inactive Administered Medications - up to 3 most recent administrations Medication Order MAR Action Action Date Dose Rate Site fentaNYL (SUBLIMAZE) preservative free injection intravenous, As needed, Starting on Tue08/26/17 at 1014, Anesthesia Intra-op Given 08/26/2017 10:20 AM CDT 50 mcg Given 08/26/2017 10:14 AM CDT 50 mcg lidocaine PF (XYLOCAINE) 10 mg/mL (1 %) preservative free injection As needed, Starting on Tue08/26/17 at 1015, Anesthesia Intra-op Given 08/26/2017 10:15 AM CDT 50 mg midazolam (VERSED) injection intravenous, As needed, Starting on Tue08/26/17 at 1008, Anesthesia Intra-op Given 08/26/2017 10:08 AM CDT 2 mg propofol (DIPRIVAN) IV intravenous, As needed, Starting on Tue08/26/17 at 1015, Anesthesia Intra-op Given 08/26/2017 10:22 AM CDT 20 mg Given 08/26/2017 10:15 AM CDT 100 mg documented in this encounter Care Teams Global Account Executive Relationship Specialty Start Date End Date Heron Ricci DO PCP - General 04/19/16 Ignacio Canela MD Consulting Physician Radiation Oncology 08/12/17 2 documented as of this encounter
--- OUTSIDE RECORDS SUMMARY | 2024-02-28 09:03 | XMS_ITS | Encounter Summary ---
Author Organization [facility] Address [address] [place] [address] Phone Care Team Providers Care Blocker Metal Base Name Role Phone Heron Ricci DO Primary Care Provider [phone] Ignacio Canela MD Unavailable [phone] Reason for Visit * Consultation (Routine) - Closed Specialty Diagnoses / Procedures Referred By Emilia berkowitz Referred To Contact Plastic Surgery Diagnoses Discuss 10/17 surgery; cosurg with Dr. Steele Procedures Talon Moore MD Phone: tel: fax: Clarita Villa MD [address] [place] [address] Phone: tel: fax: Referral ID Status Reason Start Date Expiration Date Visits Re quested Visits Authorized [id number] Closed 10/06/2017 02/27/2018 12 12 Encounter Details Date Type Department Care Team (Late st Contact Info) Description 10/07/2017 8:30 AM CDT Office Visit [facility] Surgery [address] [facility] 6th [place] [address] [place] [address] Clarita Villa MD [address] [place] [address] Anal cancer (CMS/HCC) (Primary Dx) [...] on file 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 Plastic Surgery Consultation Roxana Andersen 10/07/2017 Reason for consultation: Reconstruction after APR Referring Physician:Talon Steele MD Chief Complaint Anal cancer History of Present Illness Roxana Andersen is a 67 y.o. female who has persistent anal cancer despite chemotherapy and radiation. The patient will undergo an abdominal perineal resection and I have been asked to evaluate the patient for flap closure. The patient reports that she has a mild to moderate amount of pain. She denies incontinence. She denies recent illnesses. Past Medical History: Diagnosis Date ??? Anal [...] Smoker Packs/day: 1.00 Types: Cigarettes Start date: 1966 Quit date: 2010 ??? Smokeless tobacco: Never [...] - (Added by TW Conv) Review of Systems The patient-completed Review of Systems was reviewed and was scanned as an attachment to this encounter. Physical Exam The patient is well appearing, well-groomed, alert and oriented x3, and in no apparent distress. Extraocular motions are intact. The patient has good dentition, no prominent lymphadenopathy and equalchest rise. Pulses are equal bilaterally. Abdomen: The patient's abdomen is soft and nontender. She has a lower Pfannenstiel incision. She has redundancy of skin but this is located to the inferior aspect of her abdomen. Assessment: Anal cancer requiring an abdominal perineal resection Plan: Roxana Andersen is a good candidate for a vertical rectus abdominis myocutaneous flap. I discussed the risks and benefits of this procedure with the patient and her . I spent an hour with the patient and greater than 50% was dedicated to patient education and coordination of care. The patientvoiced understanding that the risks include were not limited to bleeding, infection, and injury to s urrounding structures. She also understands the risk of flap loss and the postoperative restrictions. All of their questions were answered. I appreciate the opportunity to participate in her care. Clarita Villa MD FACS manager surgery Chief, Section of Hand Surgery Clinical Services Professional, Hand, Nerve and Microsurgery Fellowship Division of Plastic and Reconstructive Surgery [facility] [employer] [facility] Ph. [phone] 10/07/2017 documented in this encounter Plan of Treatment Not on file documented as of this encounter Visit Diagnoses Diagnosis Anal cancer (CMS/HCC) (HCC)- Primary Malignant neoplasm of anus, unspecified site documented in this encounter Care Teams Blocker Metal Base Relationship Specialty Start Date End Date Heron Ricci DO PCP - General 04/19/16 Ignacio Canela MD Consulting Physician Radiation Oncology 08/12/17 2 documented as of this encounter
--- OUTSIDE RECORDS SUMMARY | 2024-02-28 09:03 | XMS_ITS | Encounter Summary ---
Author Organization [facility] Address [address] [facility] [address] [place] [address] Phone Care Team Providers Care Account Development Manager Name Role Phone Heron Ricci DO Primary Care Provider [phone] Ignacio Canela MD Unavailable [phone] Reason for Visit * Reason Comments Return Patient anal cancer Encounter Details Date Type Department Care Team (Late st Contact Info) Description 09/20/2017 8:45 AM CDT Office Visit [facility] Surgery [address] [place] [address] Talon Steele MD [address] [facility] [phone] [place] [address] Anal cancer (CMS/HCC) (Primary Dx) Social History Tobacco Use Types Packs/Day Years Used Date Smoking Tobacco: Former Smokeless Tobacco: Never Alcohol Use Standard Drinks/Week Comments Yes 5 (1 standard drink = 0.6 oz pur e alcohol) Comments No Sex and Gender Information Value Date Recorded Sex Assigned at Not on file 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 Gender Identity Not on file Sexual Orientation Not on file documented as of this encounter Last Filed Vital Signs Vital Sign Reading Time Taken Comments Blood Pressure 120/79 09/20/2017 8:21 AM CDT Pulse 84 09/20/2017 8:21 AM CDT Temperature 36.8 ??C (98.3 ??F) 09/20/2017 8:21 AM CD T Respiratory Rate 18 09/20/2017 8:21 AM CDT Oxygen Saturation 94% 09/20/2017 8:21 AM CDT Inhaled Oxygen Concentration - - Weight 81.5 kg (179 lb 9.6 oz) 09/20/2017 8:21 A M CDT Height - - Body Mass Index 31.81 09/16/2017 7:10 AM CDT documented in this encounter Progress Notes * Talon Steele MD - 09/20/2017 8:45 AM CDT Colorectal Surgery Clinic Visit Chief Complaint: Roxana Andersen is a 67 y.o. female with chief complaint of Return Patient (anal cancer) HPI: Patient returns to clinic for follow-up after EUA and biopsy. 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 She had a PET scan, which I personally reviewed the images, which demonstrates persistent uptake within the anal canal but no evidence of any metastatic disease. She continues to have pain and bleeding associated with bowel movements but no other symptoms. She is hereto discuss surgical therapy. Past Medical History: Diagnosis Date ??? Anal [...] Smoking status: Former Smoker ??? Smokeless tobacco: Never Used ??? Alcohol [...] - (Added by Conv) Review of Systems: As noted in [...] Genitourinary: No hematuria or dysurea Vitals: Vitals: 09/20/17 0821 BP: 120/79 Pulse: 84 Resp: 18 Temp: 36.8 ??C (98.3 ??F) SpO2: 94% Physical exam: GENERAL EXAM Appearance - well developed, well nourished Orientation - alert and oriented x 3 Eyes - anicteric Ears, mouth and nose: Normal Neurologic: Non-focal motor function Pulmonary: Non-labored breathing, no audible wheezing Integumentary: No rashes Musculoskeletal: No gross bony deformities Abdomen -- Soft nontender, nondistended, no masses. Midline incision well healed with no hernia Assessment: Roxana Andersen is a 67 y.o. female with anal cancer Plan: Will proceed with abdominal peroneal resection with possible posterior vaginectomy Will refer to plastic surgery for assistance with reconstruction of her pelvic floor Will refer her to [facility] our enterostomal therapists for preoperative education and marking I discussed with the patient the alternatives and risks of the surgery, including but not limited to bleeding, infection, colostomy complications, ureteral injury, urinary complications, impotence, risk of perineal wound problems, risk of cardio-pulmonary complications, and . All questions were answered and they understand and wish to proceed. Talon Steele MD 09/20/2017 9:13 AM documented in this encounter Plan of Treatment Not on file documented as of this encounter Visit Diagnoses Diagnosis Anal cancer (CMS/HCC) (HCC)- Primary Malignant neoplasm of anus, unspecified site documented in this encounter Care Teams Account Development Manager Relationship Specialty Start Date End Date Heron Ricci DO PCP - General 04/19/16 Ignacio Canela MD Consulting Physician Radiation Oncology 08/12/17 2 documented as of this encounter
--- OUTSIDE RECORDS SUMMARY | 2024-02-28 09:03 | XMS_ITS | Encounter Summary ---
Author Organization [facility] Address [address] [facility] [address] [place] [address] Phone Care Team Providers Care Derrick Boat Captain Name Role Phone Heron Ricci DO Primary Care Provider [phone] Ignacio Canela MD Unavailable [phone] Encounter Details Date Type Department Care Team (Late st Contact Info) Description 09/30/2017 Orders Only [facility] Surgery [address] [place] [address] Talon Steele MD [address] [facility] [place] [phone] [place] [address] Social History Tobacco Use Types Packs/Day Years Used Date Smoking Tobacco: Former Smokeless Tobacco: Never Alcohol Use Standard Drinks/Week Comments Yes 5 (1 standard drink = 0.6 oz pur e alcohol) Comments No Sex and Gender Information Value Date Recorded Sex Assigned at Not on file 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 4 tablet 09/30/2017 8 neomycin (MYCIFRADIN) 500 mg tablet Take two tablets by mouth at 1pm, 2pm, and 10pm the day before surgery 6 tablet 09/30/2017 8 metroNIDAZOLE (FLAGYL) 500 mg tablet Take one tablet at 1pm, 2pm, and 10pm the day prior to your surgery. 3 tablet 09/30/2017 8 documented in this encounter Plan of Treatment Not on file documented as of this encounter Visit Diagnoses Not on filedocumented in this encounter Care Teams Derrick Boat Captain Relationship Specialty Start Date End Date Heron Ricci DO PCP - General 04/19/16 Ignacio Canela MD Consulting Physician Radiation Oncology 08/12/17 2 documented as of this encounter
--- OUTSIDE RECORDS SUMMARY | 2024-02-28 09:03 | XMS_ITS | Encounter Summary ---
Author Organization [facility] Address [address] [place] [address] Phone Care Team Providers Care Silk Examiner Name Role Phone Heron Ricci DO Primary Care Provider [phone] Ignacio Canela MD Unavailable [phone] Encounter Details Date Type Department Care Team (Late st Contact Info) Description 09/09/2017 Telephone [facility] Surgery [address] [facility] [address] [place] [address] Jazzmine Hernandez, A Social History Tobacco Use Types Packs/Day Years Used Date Smoking Tobacco: Former Smokeless Tobacco: Never Alcohol Use Standard Drinks/Week Comments Yes 5 (1 standard drink = 0.6 oz pur e alcohol) Comments No Sex and Gender Information Value Date Recorded Sex Assigned at Not on file 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 Steele are scheduled. documented in this encounter Plan of Treatment Not on file documented as of this encounter Visit Diagnoses Not on filedocumented in this encounter Care Teams Silk Examiner Relationship Specialty Start Date End Date Heron Ricci DO PCP - General 04/19/16 Ignacio Canela MD Consulting Physician Radiation Oncology 08/12/17 2 documented as of this encounter
--- OUTSIDE RECORDS SUMMARY | 2024-02-28 09:03 | XMS_ITS | Encounter Summary ---
Author Organization [facility] Address [address] [place] [address] Care Team Providers Care Motor Generator Set Operator Name Role Phone Heron Ricci DO Primary Care Provider [phone] Encounter Details Date Type Department Care Team (Latest Contact Info) Description 04/04/2017 10:07 AM WOOD POLE TREATER - 04/04/2017 11:59 PM [facility] Hospital Encounter [facility] OP INTERIM [phone] Ignacio Canela MD [address] 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 Gender Identity Not on file Sexual Orientation Not on file documented as of this encounter Medications at Time of Discharge omega 1-jss-zji-fish oil 300-1,000 mg capsule Take 1 capsule by mouth 2 (two) times a week 05/17/2012 bgoagko-[id number]-N-[id number]-B 75-D-hudeinfr 500 mg calcium- 400 unit-15 mcg tablet 05/17/2012 10/07/2017 documented as of this encounter Discharge Disposition Disposition Code Departure Means Destination Discharge to home or self care documented in this encounter Plan of Treatment Not on file documented as of this encounter Procedures Procedure Name Priority Date/Time Associated Diagnosis Comments GENERAL RADIOLOGY REPORT 04/04/2017 documented in this encounter Results * GENERAL RADIOLOGY REPORT (04/04/2017) Anatomical Region Laterality Modality Radiographic Hazel ging Narrative 04/04/2017 Ordered by an unspecified provider. us Historical Provider MD DAY XR PROCEDURES Final R esult documented in this encounter Visit Diagnoses Not on filedocumented in this encounter Care Teams Motor Generator Set Operator Relationship Specialty Start Date End Date Heron Ricci DO PCP - General 04/19/16 documented as of this encounter
--- OUTSIDE RECORDS SUMMARY | 2024-02-28 09:03 | XMS_ITS | Encounter Summary ---
Author Organization [facility] Address [address] [place] [address] Phone Care Team Providers Care Med Spec Name Role Phone Heron Ricci DO Primary Care Provider [phone] Ignacio Canela MD Unavailable [phone] Encounter Details Date Type Department Care Team (Late st Contact Info) Description 10/07/2017 Telephone [facility] Surgery [address] [place] [address] [place] [address] [place] [address] Social History Tobacco Use Types Packs/Day Years Used Date Smoking Tobacco: Former Cigarettes 1 45 1 966 - 2010 Smokeless Tobacco: Never Alcohol Use Standard Drinks/Week Comments Yes 5 (1 standard drink = 0.6 oz pur e alcohol) Comments No Sex and Gender Information Value Date Recorded Sex Assigned at Not on file 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
--- OUTSIDE RECORDS SUMMARY | 2024-02-28 09:03 | XMS_ITS | Encounter Summary ---
Author Organization [facility] Healthcare Address [address] [place] [address] Care Team Providers Care Airflight Attendants Supervisor Name Role Phone Heron Ricci DO Primary Care Provider [phone] Ignacio Canela MD Unavailable [phone] Encounter Details Date Type Department Care Team (Latest Contact Info) Description 10/17/2017 5:10 AM CDT - 10/21/2017 4:04 PM CDT Hospital Encounter [facility] [address] [place] [address] Tania Cortes MD [address] [facility] [id number] [place] [address] Anal cancer (CMS/HCC) Discharge Disposition: Discharge to [...] on file 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 Gender Identity Not on file Sexual Orientation Not on file documented as of this encounter Last Filed Vital Signs Vital Sign Reading Time Taken Comments Blood Pressure 134/63 10/21/2017 12:40 PM CDT Pulse 93 10/21/2017 12:40 PM CDT Temperature 37 ??C (98.6 ??F) 10/21/2017 12:40 PM CDT Respiratory Rate 18 10/21/2017 12:40 PM CDT Oxygen Saturation 98% 10/21/2017 12:40 PM CDT Inhaled Oxygen Concentration - - Weight 79.4 kg (175 lb) 10/17/2017 6:35 PM CDT Height 157.5 cm (5' 2 ) 10/17/2017 6:35 PM CDT Body Mass Index 32.01 10/17/2017 6:35 PM CDT documented in this encounter Discharge Summaries * Lavinia Ley MD - 10/21/2017 1:07 PM CDT Inpatient Discharge Summary BRIEF OVERVIEW Admitting Provider: Tania Cortes MD Discharge Provider: Tania Cortes MD Primary Care Physician at Discharge: Heron Ricci DO [phone] Admission Date: 10/17/2017 Discharge Date: 10/21/2017 Admission Location: [facility] Primary Discharge Diagnosis: Anal cancer Secondary Discharge Diagnosis: Anal cancer (CMS/HCC) Acute postoperative abdominal pain S/P exploratory laparotomy * No resolved hospital problems. * DETAILS OF HOSPITAL STAY Presenting Problem/History of Present Illness: Patient is a 67 y.o. 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 She was re-stage with a PET scan which showed no evidence of any metastatic or distant disease. Therefore she presented for definitive resection on 10/17. Hospital Course: Patient underwent abdominoperineal resection with posterior vaginectomy by Dr. Cortes and rectus abdominis flap reconstruction of pelvic floor by Dr. Villa on 10/17 and was admitted to Colorectal Surgery service after stabilization in the PACU. Plan of care included hemodynamic monitoring, pain management with epidural and IV pain medications, careful advancement of diet, fluid management, regular flap checks, and physical therapy evaluation and treatment. ?? On the day of discharge, the patient was ambulating with minimal assistance; tolerating PO diet with out nausea or vomiting; surgical incisions were well approximated and pain was well controlled on oral pain medications. Her drains were discontinued prior to discharge. The patient was deemed to bemedically stable for discharge from the hospital and was in agreement with the plan to discharge home with home health and 21 days of lovenox. The patient received instructions to follow up with his primary care physician, Dr. Cortes, and Dr. Villa. Strict return precautions were provided. Active Issues Requiring Follow-up: Anal cancer Test Results Pending at Discharge: Order Current Status Surgical pathology Collected (10/17/17 1142) Operative Procedures Performed: Procedure(s): OPEN RESECTION ABDOMINOPERINEAL Vertical rectus abdominus flap, closure of perineum, vaginal wall reconstruction, complex abdominalwall closure Other Procedures: None Pertinent Test Results: None Discharge Details Physical Exam at Discharge: Discharge Condition: stable Pulse: 93 Resp: 18 BP: 134/63 Temp: 37 ??C (98.6 ??F) Weight: 79.4 kg (175 lb) Pertinent Exam Findings at Discharge: see today's progress note Discharge Disposition: Discharge to home or self care Code Status at Discharge: full code Discharge Instructions: Activity Instructions Discharge Activity: Driving restrictions -Do not drive for 4 to 6 weeks or while taking pain medications. Discharge Activity: Lifting restrictions -Do NOT lift greater than 10 pounds for 4 to 6 weeks. Discharge Activity: Walking -You may walk as tolerated. Diet Instructions Adult Discharge Diet Diet Type: Other (specify) Explanatory Comment: Ileostomy diet Other Instructions Ambulatory referral to Home Health Service Line: Home Health Primary disciplines requested: [facility]: Wound/ Ostomy Care Evaluate Physician to follow patient's care (the person listed here will be responsible for signing ongoing orders): Referring Provider Requested Start of Care Date: Tomorrow Special instructions (labs, wound care, etc.): ostomy care and teaching, wound check, abdominal dotty to be removed 14 days post op, 21 days of lovenox I attest that I or another qualified licensed provider saw the patient 90 days prior to or 30 days post admission and this face to face encounter meets the necessary Home Health requirements. The face to face encounter occurred on (date): 10/19/2017 The encounter with the patient was in whole, or in part, for the following medical condition, whichis the primary reason for home health care. (List medical condition): Anal cancer I certify that, based on my findings, the following services are medically necessary skilled home health services: Wound/ Ostomy Care Evaluate Clinical findings that support the need for home care: Medical condition requiring skilled assessment/education Wound requiring care, assessment, and instruction I certify that my clinical findings support patient's homebound status. Homebound criteria met because: Pain and impaired mobility post-op Call provider for: increased temperature -Temperature greater than 101 degrees F Call provider for: nausea, vomiting, diarrhea -If you have persistent nausea, vomiting or diarrhea (more than 10 stools per day) that does not stop Call provider for: redness, tenderness, or signs of infection (pain, swelling, redness, odor or green/yellow discharge around incision site) Call provider for: severe uncontrolled pain Call provider for: any other concerns or questions Call provider if: you feel dizzy, very tired or like you may faint Care Instructions: Incisions -Keep incisions clean and dry Care Instructions: No tub baths -No tub baths, whirlpools or swimming until your provider says it's ok. Care Instructions: Shower -You may shower Colostomy patients -Notify MD office if no output for greater than 2 days -Notify MD office if prolonged abdominal pain, persistent nausea or vomiting, and abdominal distention -Inability to maintain a pouch seal for greater than 24 hours -Skin irritation that does not heal in 1-2 pouch changes Home Health: [facility] . They will contact you after discharge to arrange your first visit. Discharge Medications: Your medication list START taking these medications bacitracin-polymyxin B ointment Commonly known as: POLYSPORIN Apply topically 2 (two) times a day. enoxaparin 40 mg/0.4 mL syringe Commonly known as: LOVENOX Inject 0.4 mL (40 mg total) under the skin daily for 21 days. oxyCODONE 5 mg immediate release tablet Commonly known as: ROXICODONE Take 1 tablet (5 mg total) by mouth every 4 (four) hours as needed for pain. CONTINUE taking these medications ALEVE 220 mg tablet Generic drug: naproxen amLODIPine 10 mg tablet Commonly known as: NORVASC aspirin 81 mg chewable tablet hydroCHLOROthiazide 25 mg tablet Commonly known as: HYDRODIURIL losartan 100 mg tablet Commonly known as: COZAAR multivitamin capsule omega 5-sof-zgj-fish oil 300-1,000 mg capsule SYMBICORT 80-4.5 mcg/actuation inhaler Generic drug: budesonide-formoterol TYLENOL EXTRA STRENGTH 500 mg tablet Generic drug: acetaminophen VENTOLIN HFA 90 mcg/actuation inhaler Generic drug: albuterol HFA vitamin E 400 unit capsule STOP taking these medications metroNIDAZOLE 500 mg tablet Commonly known as: FLAGYL neomycin 500 mg tablet Commonly known as: MYCIFRADIN ondansetron ODT 8 mg disintegrating tablet Commonly known as: ZOFRAN-ODT Outpatient Follow-Up: No future appointments. Contact Information for Follow-ups primary care provider Next Steps: Follow up Heron Ricci DO Specialty: Internal Medicine Relationship: PCP - General [address] [facility] [address] Next Steps: Follow up Follow-up with providerFollow up with Dr. Cortes in 1 month. Call to set up your appointment. Next Steps: Follow up Instructions: Follow up with Dr. Cortes in 1 month. Call to set up your appointment. Questions: Instructions for follow-up: Follow up with Dr. Cortes in 1 month. Call to set up yourappointment. Follow-up with providerFollow up with colorectal clinic or your primary care provider in 2 weeks post operation to have dotty removed. Call your primary care provider or colorectal clinic at to schedule your appointment. Next Steps: Follow up Instructions: Follow up with colorectal clinic or your primary care provider in 2 weeks post operation to have dotty removed. Call your primary care provider or colorectal clinic at to schedule your appointment. Questions: Instructions for follow-up: Follow up with colorectal clinic or your primary care provider in 2 weeks post operation to have dotty removed. Call your primary care provider or colorectal clinic at to schedule your appointment. Follow-up with providerPlastic surgery follow up with Evangelina Tobias NP in 2 weeks. Call [phone] to schedule your appointment. Next Steps: Follow up Instructions: Plastic surgery follow up with Evangelina Tobias NP in 2 weeks. Call [phone] to schedule your appointment. Questions: Instructions for follow-up: Plastic surgery follow up with Evangelina Tobias NP in 2 weeks. Call [phone] to schedule your appointment. Follow-up with providerPlastic surgery follow up with Dr. Clarita Villa in 6 weeks. Call [phone] to schedule your appointment. Next Steps: Follow up Instructions: Plastic surgery follow up with Dr. Clarita Villa in 6 weeks. Call [phone] to schedule your appointment. Questions: Instructions for follow-up: Plastic surgery follow up with Dr. Clarita Villa in 6 weeks. Call [phone] to schedule your appointment. Cosigned by Tania Cortes MD at 10/24/2017 1:39 PM CDT documented in this encounter Discharge Instructions * Discharge Instructions* Tejal Garcia MD - 10/21/2017 7:08 AM CDT Plastic Surgery Post-Operative Instructions Activities ?? Lying down: Always lay on your sides. Do not lay flat on your back. Keep 1-2 pillows between your knees. ?? Sitting: You can sit if you are putting all of your weight on one hip or the other. No pressure on the flap. Incision Care ?? OK to shower. No tub soaking. No swimming pools. No lakes or kim. ?? Keep the incision around the flap clean and dry. ?? Use antibiotic ointment twice a day over the incision line of the flap. Pad gently with gauze. ?? You may wear loose underwear, but nothing that puts pressure on the flap. Use a sanitary pad or absorbent gauze in your underwear to avoid the flap becoming too wet. ?? For the abdominal incision, keep it clean and dry. Do not allow any stool to leak onto the incision. Keep it padded with 2 thick gauze pads. Wear your abdominal binder at all times to support yourincision. Drain Care ?? Empty your drains at least twice a day. ?? Keep a log of the drain output and bring it with you to your follow up visit. Follow-Up Care ?? Clinic visit two weeks after surgery with Evangelina Tobias NP ?? Clinic visit six weeks after surgery with Dr. Villa. ?? Call [phone] to schedule. * Discharge Instr - Other Orders* Cara Herndon RN - 10/19/2017 12:26 PM CDT Home Health: [facility] . They will contact you after discharge to arrange your first visit. documented in this encounter Medications at Time of Discharge multivitamin capsule Take 1 capsule by mouth 2 (two) times a week naproxen (ALEVE) 220 mg tablet Take 1 tablet (220 mg total) by mouth every 12 (twelve) hours as needed omega 0-iso-ckn-fish oil 300-1,000 mg capsule Take 1 capsule by mouth 2 (two) times a week 05/17/2012 VENTOLIN HFA 90 mcg/actuation inhaler Inhale 2 puffs as needed 09/12/2017 vitamin E 400 unit capsule Take 1 capsule (400 Units total) by mouth 2 (two) times a week enoxaparin (LOVENOX) 40 mg/0.4 mL syringeIndicatio ns:Deep Vein Thrombosis Prevention Inject 0.4 mL (40 mg total) under the skin daily for 21 days. 8.4 mL 10/21/2017 8 acetaminophen (TYLENOL) 500 mg tabletIndication s:Pain Take [...] 10/21/2017 2 documented as of this encounter Ordered Prescriptions Prescription Sig Dispense Quantity Refills Last Filled Start Date End Date bacitracin-polymyx in B (POLYSPORIN) ointmentIndication s:Minor Bacterial Skin Infections Apply topically 2 (two) times a day. 28 g 10/21/2017 2 enoxaparin (LOVENOX) 40 mg/0.4 mL syringeIndications :Deep Vein Thrombosis Prevention Inject 0.4 mL (40 mg total) under the skin daily for 21 days. 8.4 mL 10/21/2017 8 oxyCODONE (ROXICODONE) 5 mg immediate release tabletIndications: Pain Take 1 tablet (5 mg total) by mouth every 4 (four) hours as needed for pain. 60 tablet 10/21/2017 2 documented in this encounter Discharge Disposition Disposition Code Departure Means Destination Discharge to home or self senior living documented in this encounter Progress Notes * Cara Herndon RN - 10/21/2017 1:24 PM CDT 10/18/17 0752 Discharge Summary Chart reviewed For Medical Necessity Does patient have a planned readmission to hospital planned? No Discharge Disposition Home with Home Health (PT/OT/RN) Equipment/Provider Needs Home Provider Services Needs Identified Home Care Agency Information Home Care Agency Name [facility] Home Care Agency Contact Spoken to Chelsi ring referral on 10-18 Home Care Agency Order Faxed to [phone] Discharge Additional Assistance Does the patient need discharge transport arranged? No Discharge to home with [facility] for SN. [facility] contacted and Richa notified of discharge. Final orders faxed. IM letter signed. at bedside for transport. * Lavinia Ley MD - 10/21/2017 10:40 AM CDT Daily Progress Note Colon and Rectal Surgery PATIENT NAME: Roxana Andersen : 1950 ADMIT DATE: 10/17/2017 5:10 AM LOS: 0 Subjective Pain controlled Brown output in ostomy pouch No N/V, tolerating diet CHIEF COMPLAINT: Anal cancer (CMS/HCC) INTERVAL HISTORY: No acute events overnight. Objective MEDICATIONS: Scheduled: acetaminophen 1,000 mg oral Q8H alvimopan 12 mg oral BID amLODIPine 10 mg oral Daily aspirin 81 mg oral QAM bacitracin 1 application topical BID bacitracin-polymyxin B topical BID budesonide-formoterol 2 puff inhalation BID enoxaparin 40 mg subcutaneous Daily-2100 gabapentin 200 mg oral BID ibuprofen 600 mg oral Q8H SANDHYA sodium chloride 0.9% 0.5-20 mL intra-catheter Q8H SANDHYA Infusions: PRN: albuterol HFA ??? ondansetron ??? oxyCODONE ??? sodium chloride 0.9% VITALS: 24hr Min/Max: Temp Min: 36.5 ??C (97.7 ??F) Max: 36.8 ??C (98.2 ??F) Pulse Min: 88 Max: 103 BP Min: 120/78 Max: 146/73 Resp Min: 16 Max: 18 SpO2 Min: 92 % Max: 97 % Most Recent: Vitals: 10/21/17 0855 BP: Pulse: 103 Resp: Temp: SpO2: 93% Intake/Output Summary (Last 24 hours) at 10/21/17 1043 Last data filed at 10/21/17 0606 Gross per 24 hour Intake 290 ml Output 245 ml Net 45 ml PHYSICAL EXAM: Constitutional: NAD, well developed, well nourished. A&O x 4. HEENT: PERRL, EOMI, anicteric. Lungs: Unlabored breathing. Trachea midline. Cardiovascular: Regular rate. No JVD. GI: Soft, appropriately tender, non-distended. Ostomy: [place], stool present. Wound: Dressing clean, dry, intact. Flap intact and perfusing well. No erythema/swelling/drainage noted. Drains: PETERSON with serosanguinous output. Skin: No new rashes, lesions or bruises Extremities: Normal without edema or cyanosis Neurologic: Non-focal, CNII-XII grossly intact Psychiatric: Normal affect and mood. LAB/ RADIOLOGY/ DIAGNOSTIC REVIEW: Chem/LFT Lab History Some values may be hidden. Unless noted otherwise, only the newest values recorded on each date aredisplayed. Labs-Chem/LFT Latest Ref Range 10/07/17 10/17/17 10/19/17 10/20/17 Sodium 135 - 145 mmol/L 140 134 (A) 132 (A) 139 Creatinine 0.60 - 1.10 mg/dL 0.56 (A) 0.61 0.80 0.70 CrCl- Actual Body Weight (Cockcroft-Gault) 124.2 113.7 86.7 99.1 Some values recorded on this date have been omitted. Some abnormal values recorded on this date have been omitted. (A) Abnormal value Hematology Lab History Some values may be hidden. Unless noted otherwise, only the newest values recorded on each date aredisplayed. Labs - Hematology Latest Ref Range 10/07/17 10/17/17 10/19/17 10/20/17 WBC 3.8 - 9.9 K/cumm 5.5 12.7 (A) 13.0 (A) 9.3 Hgb 11.9 - 15.5 g/dL 15.3 13.1 11.9 12.1 Hct 35.6 - 45.5 % 44.7 39.3 36.2 36.4 Plt 150 - 400 K/cumm 238 201 172 224 Neutrophils, abs 1.7 - 6.5 K/cumm 3.7 10.8 (A) 10.1 (A) Some values recorded on this date have been omitted. Some abnormal values recorded on this date have been omitted. (A) Abnormal value I have reviewed the laboratory results. ASSESSMENT/ PLAN: Roxana Andersen is a 67 y.o. female with Anal cancer (CMS/HCC), status post APR with VRAM flap. PO pain med, dc lidocaine drip Regular diet with ensure Lovenox for DVT prophylaxis IS Q 1 hour Activity per plastic recs Discharge today if pain controlled without lidocaine drip Cosigned by Tania Cortes MD at 10/24/2017 1:40 PM CDT * Tejal Garcia MD - 10/21/2017 5:50 AM CDT Plastic Surgery Daily Progress Roxana Andersen : 1950 Chief complaint: No chief complaint on file. POD 4 s/p APR/VRAM. NAEON. Tolerating side lying. Pain controlled. Walking. +Ostomy output +voided after Tom removal OBJECTIVE Recent Vitals(24hr Range): Vitals: 10/20/17 2358 BP: 120/78 Pulse: 88 Resp: 17 Temp: 36.6 ??C (97.9 ??F) SpO2: 92% I and Os: I/O last 3 completed shifts: In: 240 [P.O.:240] Out: 4980 [Urine:4675; Drains:305] I/O this shift: In: 50 [P.O.:50] Out: 175 [Urine:175] Meds: Current Facility-Administered Medications: ??? acetaminophen (TYLENOL) tablet 1,000 mg, 1,000 mg, oral, Q8H, Almaz Burkett NP, 1,000 mg at 10/20/172105 ??? albuterol HFA (PROVENTIL HFA,VENTOLIN HFA,PROAIR HFA) 90 mcg/actuation inhaler 2 puff, 2 puff, inhalation, Q4H PRN, Tania Cortes MD ??? alvimopan (ENTEREG) capsule 12 mg, 12 mg, oral, BID, Luz Elena Phan MD, 12 mg at 10/20/172105 ??? amLODIPine (NORVASC) tablet 10 mg, 10 mg, oral, Daily, Luz Elena Phan MD, 10 mg at 10/20/17817 ??? aspirin chewable tablet 81 mg, 81 mg, oral, QAM, Luz Elena Phan MD, 81 mg at 10/20/17817 ??? bacitracin zinc 500 unit/gram ointment packet 1 application, 1 application, topical, BID, StacyA. Kwadwo NP, 1 application at 10/20/172105 ??? bacitracin-polymyxin B (POLYSPORIN) 500-10,000 unit/gram ointment tube, , topical, BID, Tejal Garcia MD ??? budesonide-formoterol (SYMBICORT) 80-4.5 mcg/actuation inhaler 2 puff, 2 puff, inhalation, BID,Tania Cortes MD, 2 puff at 10/20/172114 ??? enoxaparin (LOVENOX) syringe 40 mg, 40 mg, subcutaneous, Daily-2099, Luz Elena Phan MD, 40 mg at 10/20/172105 ??? gabapentin (NEURONTIN) capsule 200 mg, 200 mg, oral, BID, Luz Elena Phan MD, 200 mg at 10/20/172105 ??? ketorolac (TORADOL) injection 15 mg, 15 mg, intravenous, Q8H SANDHYA, 15 mg at 10/20/172307 FOLLOWED BY ibuprofen (ADVIL,MOTRIN) tablet 600 mg, 600 mg, oral, Q8H SANDHYA, Luz Elena Phan MD ??? lidocaine 2 g/250 mL (8 mg/mL) dextrose 5% (premix), 1.5 mg/kg/hr ([place]), intravenous, Continuous, Gretchen Rene MD PhD, Last Rate: 9.39 mL/hr at 10/20/171825, 1.5 mg/kg/hr at 08/23/18 1826 ??? ondansetron (ZOFRAN) injection 4 mg, 4 mg, intravenous, Q4H PRN, Nhi Pop MD ??? oxyCODONE (ROXICODONE) tablet 5 mg, 5 mg, oral, Q4H PRN, Lavinia Ley MD, 5 mg at 10/19/17 1127 ??? sodium chloride 0.9% flush 0.5-20 mL, 0.5-20 mL, intra-catheter, Q8H SANDHYA, Luz Elena Phan MD, 10 mL at 10/20/17 0510 ??? sodium chloride 0.9% flush 0.5-20 mL, 0.5-20 mL, intra-catheter, PRN, Luz Elena Phan MD Physical Exam: NAD, alert Nonlabored breathing Extremities warm, well-perfused Abdominal incision intact with dotty Ostomy pink, perfused; brown liquid stool. Perineal incisions around flap c/d/i with sutures Flap pink, warm, good capillary refill. Stable ~1cm duskiness to edge of distalmost apex of flap. Drains: serosanguinous Lab/Radiology/Diagnostic Review: Chem/LFT Lab History Some values may be hidden. Unless noted otherwise, only the newest values recorded on each date aredisplayed. Labs-Chem/LFT Latest Ref Range 10/07/17 10/17/17 10/19/17 10/20/17 Sodium 135 - 145 mmol/L 140 134 (A) 132 (A) 139 Creatinine 0.60 - 1.10 mg/dL 0.56 (A) 0.61 0.80 0.70 CrCl- Actual Body Weight (Cockcroft-Gault) 124.2 113.7 86.7 99.1 Some values recorded on this date have been omitted. Some abnormal values recorded on this date have been omitted. (A) Abnormal value Hematology Lab History Some values may be hidden. Unless noted otherwise, only the newest values recorded on each date aredisplayed. Labs - Hematology Latest Ref Range 10/07/17 10/17/17 10/19/17 10/20/17 WBC 3.8 - 9.9 K/cumm 5.5 12.7 (A) 13.0 (A) 9.3 Hgb 11.9 - 15.5 g/dL 15.3 13.1 11.9 12.1 Hct 35.6 - 45.5 % 44.7 39.3 36.2 36.4 Plt 150 - 400 K/cumm 238 201 172 224 Neutrophils, abs 1.7 - 6.5 K/cumm 3.7 10.8 (A) 10.1 (A) Some values recorded on this date have been omitted. Some abnormal values recorded on this date have been omitted. (A) Abnormal value ASSESSMENT Roxana Andersen is a 67 y.o. female POD 4 s/p APR & VRAM reconstruction. PLAN - no pressure to flap - strict side lying only while in bed; OK to sit if putting all weight on one hip or the other - physical therapy, logroll to standing only; no sitting; ambulate - bacitracin BID to incisions around flap, cover with ABD - OK to wear loose underwear with absorbent pad - Interdry to groin folds please - Drains, DVT ppx & diet per Colorectal - Plastic Surgery follow up (Call [phone] to schedule): -in 2 weeks with Evangelina Tobias NP -in [address] Villa - Plastic Surgery instructions for home placed in After Visit Summary PRS Contact information: Daytime PRS Recon resident (-): Tejal Garcia [phone] Otherwise: ?? Weekdays 7AM - 5PM please call the Plastic Surgery Consult Pager [phone] to be directed to the correct Plastic Surgery resident. ?? Weeknights 5PM - 7AM, All day on Weekends, All day on Holidays please call the Doctor Of Dental Medicine to find the It Risk And Assurance Senior Manager Plastic Surgery resident Tejal Garcia MD 10/21/2017 Cosigned by Clarita Villa MD at 10/22/2017 8:22 AM CDT Associated attestation - Clarita Villa MD - 10/22/2017 8:22 AM CDT I have seen and examined the patient on 8/24/18. I agree with the findings and plan of care as documented in the resident's/fellow's note. * Lavinia Ley MD - 10/20/2017 9:39 AM CDT Daily Progress Note Colon and Rectal Surgery PATIENT NAME: Roxana Andersen : 1950 ADMIT DATE: 10/17/2017 5:10 AM LOS: 0 Subjective Doing OK. Pain controlled Sweat in ostomy pouch No N/V, tolerating diet Os sat 97% on 1L NC CHIEF COMPLAINT: Anal cancer (CMS/HCC) INTERVAL HISTORY: No acute events overnight. Objective MEDICATIONS: Scheduled: acetaminophen 1,000 mg oral Q8H alvimopan 12 mg oral BID amLODIPine 10 mg oral Daily aspirin 81 mg oral QAM bacitracin 1 application topical BID bacitracin-polymyxin B topical BID budesonide-formoterol 2 puff inhalation BID enoxaparin 40 mg subcutaneous Daily-2100 gabapentin 200 mg oral BID ketorolac 15 mg intravenous Q8H SANDHYA Followed by [START ON 10/21/2017] ibuprofen 600 mg oral Q8H SANDHYA sodium chloride 0.9% 0.5-20 mL intra-catheter Q8H SANDHYA Infusions: lidocaine cardiac 1.5 mg/kg/hr ([place]) Last Rate: 1.5 mg/kg/hr (10/19/17 2100) PRN: albuterol HFA ??? ondansetron ??? oxyCODONE ??? sodium chloride 0.9% VITALS: 24hr Min/Max: Temp Min: 36.3 ??C (97.3 ??F) Max: 37.4 ??C (99.3 ??F) Pulse Min: 74 Max: 119 BP Min: 96/81 Max: 143/77 Resp Min: 16 Max: 20 SpO2 Min: 92 % Max: 98 % Most Recent: Vitals: 10/20/17 0859 BP: Pulse: 80 Resp: 16 Temp: SpO2: Intake/Output Summary (Last 24 hours) at 10/20/17 0942 Last data filed at 10/20/17 0825 Gross per 24 hour Intake 0 ml Output 4275 ml Net -4275 ml PHYSICAL EXAM: Constitutional: NAD, well developed, well nourished. A&O x 4. HEENT: PERRL, EOMI, anicteric. Lungs: Unlabored breathing. Trachea midline. Cardiovascular: Regular rate. No JVD. GI: Soft, appropriately tender, non-distended. Ostomy: [place], no stool/flatus present. Wound: Dressing clean, dry, intact. Flap intact and perfusing well. No erythema/swelling/drainage noted. Drains: PETERSON with serosanguinous output. Tom intact with clear yellow urine. Skin: No new rashes, lesions or bruises Extremities: Normal without edema or cyanosis Neurologic: Non-focal, CNII-XII grossly intact Psychiatric: Normal affect and mood. LAB/ RADIOLOGY/ DIAGNOSTIC REVIEW: Chem/LFT Lab History Some values may be hidden. Unless noted otherwise, only the newest values recorded on each date aredisplayed. Labs-Chem/LFT Latest Ref Range 10/07/17 10/17/17 10/19/17 10/20/17 Sodium 135 - 145 mmol/L 140 134 (A) 132 (A) 139 Creatinine 0.60 - 1.10 mg/dL 0.56 (A) 0.61 0.80 0.55 (A) CrCl- Actual Body Weight (Cockcroft-Gault) 124.2 113.7 86.7 126.1 (A) Abnormal value Hematology Lab History Some values may be hidden. Unless noted otherwise, only the newest values recorded on each date aredisplayed. Labs - Hematology Latest Ref Range 10/07/17 10/17/17 10/19/17 10/20/17 WBC 3.8 - 9.9 K/cumm 5.5 12.7 (A) 13.0 (A) 9.2 Hgb 11.9 - 15.5 g/dL 15.3 13.1 11.9 11.4 (A) Hct 35.6 - 45.5 % 44.7 39.3 36.2 34.4 (A) Plt 150 - 400 K/cumm 238 201 172 184 Neutrophils, abs 1.7 - 6.5 K/cumm 3.7 10.8 (A) 10.1 (A) (A) Abnormal value I have reviewed the laboratory results. ASSESSMENT/ PLAN: Roxana Andersen is a 67 y.o. female with Anal cancer (CMS/HCC), status post APR with VRAM flap. PO pain med Wean O2 as tolerated Regular diet with ensure DC negro, danette from plastic perspective Lovenox for DVT prophylaxis IS Q 1 hour Activity per plastic recs Cosigned by Tania Cortes MD at 10/20/2017 10:01 AM CDT * Tejal Garcia MD - 10/20/2017 5:56 AM CDT Plastic Surgery Daily Progress Roxana Andersen : 1950 Chief complaint: No chief complaint on file. POD 3 s/p APR/VRAM. NAEON. Tolerating side lying. Pain controlled. Walking. OBJECTIVE Recent Vitals(24hr Range): Vitals: 10/20/17 0532 BP: 141/77 Pulse: 74 Resp: 18 Temp: 36.3 ??C (97.3 ??F) SpO2: 97% I and Os: I/O last 3 completed shifts: In: 120 [P.O.:120] Out: 4585 [Urine:4150; Drains:435] I/O this shift: In: - Out: 2049 [Urine:2049] Meds: Current Facility-Administered Medications: ??? acetaminophen (TYLENOL) tablet 1,000 mg, 1,000 mg, oral, Q8H, Almaz Burkett NP, 1,000 mg at 10/20/17 0510 ??? albuterol HFA (PROVENTIL HFA,VENTOLIN HFA,PROAIR HFA) 90 mcg/actuation inhaler 2 puff, 2 puff, inhalation, Q4H PRN, Tania Cortes MD ??? alvimopan (ENTEREG) capsule 12 mg, 12 mg, oral, BID, Luz Elena Phan MD, 12 mg at 10/19/172141 ??? amLODIPine (NORVASC) tablet 10 mg, 10 mg, oral, Daily, Luz Elena Phan MD, 10 mg at 10/19/17 0834 ??? aspirin chewable tablet 81 mg, 81 mg, oral, QAM, Luz Elena Phan MD, 81 mg at 10/19/17 0834 ??? bacitracin zinc 500 unit/gram ointment packet 1 application, 1 application, topical, BID, StacyA. Kwadwo NP, 1 application at 10/19/172145 ??? bacitracin-polymyxin B (POLYSPORIN) 500-10,000 unit/gram ointment tube, , topical, BID, Tejal Garcia MD ??? budesonide-formoterol (SYMBICORT) 80-4.5 mcg/actuation inhaler 2 puff, 2 puff, inhalation, BID (RT), Luz Elena Phan MD, 2 puff at 10/19/172144 ??? enoxaparin (LOVENOX) syringe 40 mg, 40 mg, subcutaneous, Daily-2099, Luz Elena Phan MD, 40 mg at 10/19/172142 ??? gabapentin (NEURONTIN) capsule 200 mg, 200 mg, oral, BID, Luz Elena Phan MD, 200 mg at 10/19/172142 ??? ketorolac (TORADOL) injection 15 mg, 15 mg, intravenous, Q8H SANDHYA, 15 mg at 10/19/17 2335 FOLLOWED BY [START ON 10/21/2017] ibuprofen (ADVIL,MOTRIN) tablet 600 mg, 600 mg, oral, Q8H SANDHYA, Luz Elena Phan MD ??? lidocaine 2 g/250 mL (8 mg/mL) dextrose 5% (premix), 1.5 mg/kg/hr ([place]), intravenous, Continuous, Gretchen Rene MD PhD, Last Rate: 9.39 mL/hr at 10/19/172099, 1.5 mg/kg/hr at 10/19/172099 ??? ondansetron (ZOFRAN) injection 4 mg, 4 mg, intravenous, Q4H PRN, Nhi Pop MD ??? oxyCODONE (ROXICODONE) tablet 5 mg, 5 mg, oral, Q4H PRN, Lavinia Ley MD, 5 mg at 10/19/17 1127 ??? sodium chloride 0.9% flush 0.5-20 mL, 0.5-20 mL, intra-catheter, Q8H SANDHYA, Luz Elena Phan MD, 10 mL at 10/20/17 0510 ??? sodium chloride 0.9% flush 0.5-20 mL, 0.5-20 mL, intra-catheter, PRN, Luz Elena Phan MD Physical Exam: NAD, alert Nonlabored breathing Extremities warm, well-perfused Abdominal incision intact, soiled with stool from ostomy; abdominal binder also soiled Ostomy pink, perfused Perineal incisions around flap c/d/i with sutures Flap pink, warm, good capillary refill. Evolving ~1cm duskiness to edge of distalmost apex of flap. Drains: serosanguinous Lab/Radiology/Diagnostic Review: Chem/LFT Lab History Some values may be hidden. Unless noted otherwise, only the newest values recorded on each date aredisplayed. Labs-Chem/LFT Latest Ref Range 10/07/17 10/17/17 10/19/17 10/20/17 Sodium 135 - 145 mmol/L 140 134 (A) 132 (A) 139 Creatinine 0.60 - 1.10 mg/dL 0.56 (A) 0.61 0.80 0.55 (A) CrCl- Actual Body Weight (Cockcroft-Gault) 124.2 113.7 86.7 126.1 (A) Abnormal value Hematology Lab History Some values may be hidden. Unless noted otherwise, only the newest values recorded on each date aredisplayed. Labs - Hematology Latest Ref Range 10/07/17 10/17/17 10/19/17 10/20/17 WBC 3.8 - 9.9 K/cumm 5.5 12.7 (A) 13.0 (A) 9.2 Hgb 11.9 - 15.5 g/dL 15.3 13.1 11.9 11.4 (A) Hct 35.6 - 45.5 % 44.7 39.3 36.2 34.4 (A) Plt 150 - 400 K/cumm 238 201 172 184 Neutrophils, abs 1.7 - 6.5 K/cumm 3.7 10.8 (A) 10.1 (A) (A) Abnormal value ASSESSMENT Roxana Andersen is a 67 y.o. female POD 3 s/p APR & VRAM reconstruction. PLAN - q4h flap checks; no pressure to flap - strict side lying only while in bed - physical therapy, logroll to standing only; no sitting; OK to ambulate - OK to dc Tom from PRS perspective - bacitracin BID to incisions around flap, cover with ABD - Interdry to groin folds please - DVT ppx & diet per Colorectal - Plastic Surgery follow up (Call [phone] to schedule): -in 2 weeks with Evangelina Tobias NP -in [address] Villa PRS Contact information: Daytime PRS Recon resident (-): Tejal Garcia [phone] Otherwise: ?? Weekdays 7AM - 5PM please call the Plastic Surgery Consult Pager [phone] to be directed to the correct Plastic Surgery resident. ?? Weeknights 5PM - 7AM, All day on Weekends, All day on Holidays please call the Doctor Of Dental Medicine to find the It Risk And Assurance Senior Manager Plastic Surgery resident Tejal Garcia MD 10/20/2017 Cosigned by Clarita Villa MD at 10/22/2017 8:21 AM CDT Associated attestation - Clarita Villa MD - 10/22/2017 8:21 AM CDT I have seen and examined the patient on 10/20/17. I agree with the findings and plan of care as documented in the resident's/fellow's note. * Lavinia Ley MD - 10/19/2017 10:08 AM CDT Daily Progress Note Colon and Rectal Surgery PATIENT NAME: Roxana Andersen : 1950 ADMIT DATE: 10/17/2017 5:10 AM LOS: 0 Subjective Doing OK. Pain controlled Some gas in ostomy pouch No N/V CHIEF COMPLAINT: Anal cancer (CMS/HCC) INTERVAL HISTORY: No acute events overnight. Objective MEDICATIONS: Scheduled: acetaminophen 1,000 mg oral Q8H alvimopan 12 mg oral BID amLODIPine 10 mg oral Daily aspirin 81 mg oral QAM bacitracin 1 application topical BID bacitracin-polymyxin B topical BID budesonide-formoterol 2 puff inhalation BID (RT) enoxaparin 40 mg subcutaneous Daily-2100 gabapentin 200 mg oral BID ketorolac 15 mg intravenous Q8H SANDHYA Followed by [START ON 10/21/2017] ibuprofen 600 mg oral Q8H SANDHYA sodium chloride 0.9% 0.5-20 mL intra-catheter Q8H SANDHYA Infusions: lidocaine cardiac 1.5 mg/kg/hr ([place]) Last Rate: 1.5 mg/kg/hr (10/19/17 0549) PRN: albuterol HFA ??? ondansetron ??? oxyCODONE ??? sodium chloride 0.9% VITALS: 24hr Min/Max: Temp Min: 36.3 ??C (97.3 ??F) Max: 36.9 ??C (98.4 ??F) Pulse Min: 71 Max: 91 BP Min: 101/50 Max: 132/61 Resp Min: 18 Max: 22 SpO2 Min: 90 % Max: 96 % Most Recent: Vitals: 10/19/17 0802 BP: 120/56 Pulse: 73 Resp: 18 Temp: 36.7 ??C (98.1 ??F) SpO2: 96% Intake/Output Summary (Last 24 hours) at 10/19/17 1008 Last data filed at 10/19/17 0809 Gross per 24 hour Intake 120 ml Output 2330 ml Net -2210 ml PHYSICAL EXAM: Constitutional: NAD, well developed, well nourished. A&O x 4. HEENT: PERRL, EOMI, anicteric. Lungs: Unlabored breathing. Trachea midline. Cardiovascular: Regular rate. No JVD. GI: Soft, appropriately tender, non-distended. Ostomy: [place], no stool/flatus present. Wound: Dressing clean, dry, intact. Flap intact and perfusing well. No erythema/swelling/drainage noted. Drains: PETERSON with serosanguinous output. Tom intact with clear yellow urine. Skin: No new rashes, lesions or bruises Extremities: Normal without edema or cyanosis Neurologic: Non-focal, CNII-XII grossly intact Psychiatric: Normal affect and mood. LAB/ RADIOLOGY/ DIAGNOSTIC REVIEW: Chem/LFT Lab History Some values may be hidden. Unless noted otherwise, only the newest values recorded on each date aredisplayed. Labs-Chem/LFT Latest Ref Range 04/04/17 10/07/17 10/17/17 10/19/17 Sodium 135 - 145 mmol/L 140 134 (A) 132 (A) Creatinine 0.60 - 1.10 mg/dL 0.56 (A) 0.61 0.80 CrCl- Actual Body Weight (Cockcroft-Gault) 91.9 124.2 113.7 86.7 (A) Abnormal value Hematology Lab History Some values may be hidden. Unless noted otherwise, only the newest values recorded on each date aredisplayed. Labs - Hematology Latest Ref Range 12/16/16 10/07/17 10/17/17 10/19/17 WBC 3.8 - 9.9 K/cumm 5.38 5.5 12.7 (A) 13.0 (A) Hgb 11.9 - 15.5 g/dL 16.3 (A) 15.3 13.1 11.9 Hct 35.6 - 45.5 % 47.2 (A) 44.7 39.3 36.2 Plt 150 - 400 K/cumm 240 238 201 172 Neutrophils, abs 1.7 - 6.5 K/cumm 3.44 3.7 10.8 (A) 10.1 (A) (A) Abnormal value I have reviewed the laboratory results. ASSESSMENT/ PLAN: Roxana Andersen is a 67 y.o. female with Anal cancer (CMS/HCC), status post APR with VRAM flap. 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 POD 2 s/p APR/VRAM. NAEON. Tolerating side lying. Pain controlled. Walked with PT. OBJECTIVE Recent Vitals(24hr Range): Vitals: 10/19/17 0802 BP: 120/56 Pulse: 73 Resp: 18 Temp: 36.7 ??C (98.1 ??F) SpO2: 96% I and Os: I/O last 3 completed shifts: In: 120 [P.O.:120] Out: 3005 [Urine:2600; Drains:405] I/O this shift: In: - Out: 655 [Urine:625; Drains:30] Meds: Current Facility-Administered Medications: ??? acetaminophen (TYLENOL) tablet 1,000 mg, 1,000 mg, oral, Q8H, Almaz Burkett NP, 1,000 mg at 10/19/17 0547 ??? albuterol HFA (PROVENTIL HFA,VENTOLIN HFA,PROAIR HFA) 90 mcg/actuation inhaler 2 puff, 2 puff, inhalation, Q4H PRN (RT), Luz Elena Phan MD ??? alvimopan (ENTEREG) capsule 12 mg, 12 mg, oral, BID, Luz Elena Phan MD, 12 mg at 10/19/17 0834 ??? amLODIPine (NORVASC) tablet 10 mg, 10 mg, oral, Daily, Luz Elena Phan MD, 10 mg at 10/19/1734 ??? aspirin chewable tablet 81 mg, 81 mg, oral, QAM, Luz Elena Phan MD, 81 mg at 10/19/1734 ??? bacitracin zinc 500 unit/gram ointment packet 1 application, 1 application, topical, BID, StacyA. Kwadwo NP, 1 application at 10/19/17 0834 ??? bacitracin-polymyxin B (POLYSPORIN) 500-10,000 unit/gram ointment tube, , topical, BID, Tejal Garcia MD ??? budesonide-formoterol (SYMBICORT) 80-4.5 mcg/actuation inhaler 2 puff, 2 puff, inhalation, BID (RT), Luz Elena Phan MD, 2 puff at 10/17/172005 ??? enoxaparin (LOVENOX) syringe 40 mg, 40 mg, subcutaneous, Daily-2099, Luz Elena Phan MD, 40 mg at 10/18/172103 ??? gabapentin (NEURONTIN) capsule 200 mg, 200 mg, oral, BID, Lzu Elena Phan MD, 200 mg at 10/19/17 0834 ??? ketorolac (TORADOL) injection 15 mg, 15 mg, intravenous, Q8H SANDHYA, 15 mg at 10/19/17 0121 FOLLOWED BY [START ON 10/21/2017] ibuprofen (ADVIL,MOTRIN) tablet 600 mg, 600 mg, oral, Q8H SANDHYA, Luz Elena Phan MD ??? lidocaine 2 g/250 mL (8 mg/mL) dextrose 5% (premix), 1.5 mg/kg/hr ([place]), intravenous, Continuous, Gretchen Rene MD PhD, Last Rate: 9.39 mL/hr at 10/19/17 0549, 1.5 mg/kg/hr at 10/19/17 0549 ??? ondansetron (ZOFRAN) injection 4 mg, 4 mg, intravenous, Q4H PRN, Nhi Pop MD ??? oxyCODONE (ROXICODONE) tablet 5 mg, 5 mg, oral, Q4H PRN, Lavinia Ley MD ??? sodium chloride 0.9% flush 0.5-20 mL, 0.5-20 mL, intra-catheter, Q8H SANDHYA, Luz Elena Phan MD, 10 mL at 10/19/17 0548 ??? sodium chloride 0.9% flush 0.5-20 mL, 0.5-20 mL, intra-catheter, PRN, Luz Elena Phan MD Physical Exam: NAD, alert Nonlabored breathing Extremities warm, well-perfused Abdominal incision c/d/i Ostomy pink, perfused Perineal incisions around flap c/d/i with sutures Flap pink, warm, good capillary refill. ~1cm duskiness to edge of distalmost apex of flap, evolving Drains: serosanguinous Lab/Radiology/Diagnostic Review: Chem/LFT Lab History Some values may be hidden. Unless noted otherwise, only the newest values recorded on each date aredisplayed. Labs-Chem/LFT Latest Ref Range 04/04/17 10/07/17 10/17/17 10/19/17 Sodium 135 - 145 mmol/L 140 134 (A) 132 (A) Creatinine 0.60 - 1.10 mg/dL 0.56 (A) 0.61 0.80 CrCl- Actual Body Weight (Cockcroft-Gault) 91.9 124.2 113.7 86.7 (A) Abnormal value Hematology Lab History Some values may be hidden. Unless noted otherwise, only the newest values recorded on each date aredisplayed. Labs - Hematology Latest Ref Range 12/16/16 10/07/17 10/17/17 10/19/17 WBC 3.8 - 9.9 K/cumm 5.38 5.5 12.7 (A) 13.0 (A) Hgb 11.9 - 15.5 g/dL 16.3 (A) 15.3 13.1 11.9 Hct 35.6 - 45.5 % 47.2 (A) 44.7 39.3 36.2 Plt 150 - 400 K/cumm 240 238 201 172 Neutrophils, abs 1.7 - 6.5 K/cumm 3.44 3.7 10.8 (A) 10.1 (A) (A) Abnormal value ASSESSMENT Roxana Andersen is a 67 y.o. female POD 2 s/p APR & VRAM reconstruction PLAN - q4h flap checks; no pressure to flap - strict side lying only while in bed - physical therapy, logroll to standing only; no sitting; OK to ambulate - keep Tom catheter another day - bacitracin BID to incisions around flap, cover with ABD - Interdry to groin folds please - DVT ppx & diet per Colorectal PRS Contact information: Daytime PRS Recon resident (-): Tejal Garcia [phone] Otherwise: ?? 7AM - 5PM please call the Plastic Surgery Consult Pager [phone] to be directed to the correct Plastic Surgery resident. ?? Weeknights 5PM - 7AM, All day on Weekends, All day on Holidays please call the Doctor Of Dental Medicine to find the It Risk And Assurance Senior Manager Plastic Surgery resident Tejal Garcia MD 10/19/2017 Cosigned by Clarita Villa MD at 10/22/2017 8:23 AM CDT Associated attestation - Clarita Villa MD - 10/22/2017 8:23 AM CDT I have seen and examined the patient on 10/19/17. I agree with the findings and plan of care as documented in the resident's/fellow's note. * Cara Herndon RN - 10/18/2017 12:39 PM CDT 10/18/17 1236 Referral Data Referral Source Palaeontologist Referral Reason Discharge Planning Patient Information Primary Caregiver Self Support System Spouse/Significant Other Support system contact info (name, phone, availablity) spouse, Ty Prior Level of Functioning Durable Medical Equipment None Living Arrangement House (lives with spouse, bedroom on main level) Potential Discharge Needs Discharge Potential home with home health Home Health correction Anticipated discharge level of care Return Home Communications Patient choice (Home Health/Hospice) list given to patient/customer support representative? Yes Fiduciary Responsibility Patient/Designated decision maker was informed of [facility] fiduciary relationship as necessary Impression: Anal cancer s/p APR with VRAM flap Additional Information/Options Discussed: Patient interviewed at bedside for initial assessment. Address and phone verified to face sheet. Patient lives with spouse for support. Patient's sister in law, Nelsy,and brother in law, Harpreet, will also be in town for support after discharge. Plan Includes: Discharge to home with home health. [facility] list given to patient, she would like to look over before making a decision. Will follow PT/OT recommendations. Insurance verified as: [employer] 1bib Admit Source: non healthcare PCP: verified as Dr. Ricci Pharmacy: [facility] Based on a comprehensive family assessment, assistance with instrumental activities of daily livingafter discharge will be provided by spouse. Through the course of our work I determined that spouse possesses the skill and ability to provide and monitor the care of the patient when he or she returns home. Spouse has the capacity to provide/monitor/arrange for the care of the patient. Finally, we determined that spouse has the knowledge ofavailable resources and that combining them with their existing resources will suffice to sustain and care for the patient when he or she returns home. The treatment team is aware of this information. All are in agreement with the aftercare plan. * Almaz Burkett NP - 10/18/2017 10:07 AM CDT Daily Progress Note Colon and Rectal Surgery PATIENT NAME: Roxana Andersen : 1950 ADMIT DATE: 10/17/2017 5:10 AM LOS: 0 Subjective Doing OK. Some pain but controlled with the medicine. No appetite but denies nausea and vomiting. CHIEF COMPLAINT: Anal cancer (CMS/HCC) INTERVAL HISTORY: No acute events overnight. Objective MEDICATIONS: Scheduled: acetaminophen 1,000 mg oral Q8H SANDHYA alvimopan 12 mg oral BID amLODIPine 10 mg oral Daily aspirin 81 mg oral QAM bacitracin-polymyxin B topical BID budesonide-formoterol 2 puff inhalation BID (RT) enoxaparin 40 mg subcutaneous Daily-2100 gabapentin 200 mg oral BID ketorolac 15 mg intravenous Q8H SANDHYA Followed by [START ON 10/21/2017] ibuprofen 600 mg oral Q8H SANDHYA sodium chloride 0.9% 0.5-20 mL intra-catheter Q8H SANDHYA Infusions: dextrose 5% and sodium chloride 0.45% with potassium chloride 20 mEq/L 80 mL/hr Last Rate: 80 mL/hr(10/17/17 2348) HYDROmorphone HYDROmorphone lidocaine cardiac 1.5 mg/kg/hr ([place]) Last Rate: 1.5 mg/kg/hr (10/18/17 0718) PRN: albuterol HFA ??? naloxone ??? ondansetron ??? sodium chloride 0.9% VITALS: 24hr Min/Max: Temp Min: 36.1 ??C (97 ??F) Max: 36.8 ??C (98.2 ??F) Pulse Min: 79 Max: 105 BP Min: 114/70 Max: 168/122 Resp Min: 9 Max: 21 SpO2 Min: 79 % Max: 98 % Most Recent: Vitals: 10/18/17 0743 BP: 137/77 Pulse: 92 Resp: 18 Temp: 36.7 ??C (98.1 ??F) SpO2: 91% Intake/Output Summary (Last 24 hours) at 10/18/17 1008 Last data filed at 10/18/17 0751 Gross per 24 hour Intake 3168.8 ml Output 2100 ml Net 1068.8 ml PHYSICAL EXAM: Constitutional: NAD, well developed, well nourished. A&O x 4. HEENT: PERRL, EOMI, anicteric. Lungs: Unlabored breathing. Trachea midline. Cardiovascular: Regular rate. No JVD. GI: Soft, appropriately tender, non-distended. Ostomy: [place], no stool/flatus present. Wound: Dressing clean, dry, intact. Flap intact and perfusing well. No erythema/swelling/drainage noted. Drains: PETERSON with serosanguinous output. Tom intact with clear yellow urine. Skin: No new rashes, lesions or bruises Extremities: Normal without edema or cyanosis Neurologic: Non-focal, CNII-XII grossly intact Psychiatric: Normal affect and mood. LAB/ RADIOLOGY/ DIAGNOSTIC REVIEW: Chem/LFT Lab History Some values may be hidden. Unless noted otherwise, only the newest values recorded on each date aredisplayed. Labs-Chem/LFT Latest Ref Range 12/16/16 04/04/17 10/07/17 10/17/17 Sodium 135 - 145 mmol/L 142 140 134 (A) Creatinine 0.60 - 1.10 mg/dL 0.63 0.56 (A) 0.61 CrCl- Actual Body Weight (Cockcroft-Gault) 102.2 91.9 124.2 113.7 (A) Abnormal value Hematology Lab History Some values may be hidden. Unless noted otherwise, only the newest values recorded on each date aredisplayed. Labs - Hematology Latest Ref Range 12/16/16 10/07/17 10/17/17 WBC 3.8 - 9.9 K/cumm 5.38 5.5 12.7 (A) Hgb 11.9 - 15.5 g/dL 16.3 (A) 15.3 13.1 Hct 35.6 - 45.5 % 47.2 (A) 44.7 39.3 Plt 150 - 400 K/cumm 240 238 201 Neutrophils, abs 1.7 - 6.5 K/cumm 3.44 3.7 10.8 (A) (A) Abnormal value I have reviewed the laboratory results. ASSESSMENT/ PLAN: Roxana Andersen is a 67 y.o. female with Anal cancer (CMS/HCC), status post APR with VRAM flap. Fu plastic recs Acute pain control Wean O2 Regular diet with ensure Am labs Lovenox for DVT prophylaxis IS Q 1 hour Activity per plastic recs Cosigned by Tania Cortes MD at 10/18/2017 12:01 PM CDT * Tejal Garcia MD - 10/18/2017 8:42 AM CDT Plastic Surgery Daily Progress Roxana Andersen : 1950 Chief complaint: No chief complaint on file. POD 1 s/p APR/VRAM. NAEON. Tolerating side lying. Pain controlled. OBJECTIVE Recent Vitals(24hr Range): Vitals: 10/18/17 0743 BP: 137/77 Pulse: 92 Resp: 18 Temp: 36.7 ??C (98.1 ??F) SpO2: 91% I and Os: I/O last 3 completed shifts: In: 4668.8 [I.V.:3668.8; IV Piggyback:1000] Out: 1785 [Urine:1425; Drains:210; Blood:150] I/O this shift: In: 0 Out: 365 [Urine:325; Drains:40] Meds: Current Facility-Administered Medications: ??? acetaminophen (TYLENOL) tablet 1,000 mg, 1,000 mg, oral, Q8H SANDHYA, Luz Elena Phan MD ??? albuterol HFA (PROVENTIL HFA,VENTOLIN HFA,PROAIR HFA) 90 mcg/actuation inhaler 2 puff, 2 puff, inhalation, Q4H PRN (RT), Luz Elena Phan MD ??? alvimopan (ENTEREG) capsule 12 mg, 12 mg, oral, BID, Luz Elena Phan MD, 12 mg at 10/18/17813 ??? amLODIPine (NORVASC) tablet 10 mg, 10 mg, oral, Daily, Luz Elena Phan MD, 10 mg at 10/18/17813 ??? aspirin chewable tablet 81 mg, 81 mg, oral, QAM, Luz Elena Phan MD, 81 mg at 10/18/17813 ??? budesonide-formoterol (SYMBICORT) 80-4.5 mcg/actuation inhaler 2 puff, 2 puff, inhalation, BID (RT), Luz Elena Phan MD, 2 puff at 10/17/172005 ??? [] dextrose 5% and sodium chloride 0.45% with potassium chloride 20 mEq/L premix infusion, 125 mL/hr, intravenous, Continuous, Last Rate: 125 mL/hr at 10/17/178, 125 mL/hr at 10/17/171547 FOLLOWED BY dextrose 5% and sodium chloride 0.45% with potassium chloride 20 mEq/L premix infusion, 80 mL/hr, intravenous, Continuous, Luz Elena Phan MD, Last Rate: 80 mL/hr at 10/17/178, 80 mL/hr at 10/17/178 ??? enoxaparin (LOVENOX) syringe 40 mg, 40 mg, subcutaneous, Daily-2100, Luz Elena Phan MD, 40 mg at 10/17/172011 ??? gabapentin (NEURONTIN) capsule 200 mg, 200 mg, oral, BID, Luz Elena Phan MD, 200 mg at 10/18/17 0814 ??? HYDROmorphone (DILAUDID) 20 mg/100 mL (0.2 mg/mL) sodium chloride 0.9% (premix), , intravenous,Continuous, Maria Luisa Latham NP ??? HYDROmorphone (DILAUDID) 20 mg/100 mL (0.2 mg/mL) sodium chloride 0.9% (premix), , intravenous,Continuous, Luz Elena Phan MD, 20 mg at 10/17/17 1549 ??? ketorolac (TORADOL) injection 15 mg, 15 mg, intravenous, Q8H SANDHYA, 15 mg at 10/18/17 0815 FOLLOWED BY [START ON 10/21/2017] ibuprofen (ADVIL,MOTRIN) tablet 600 mg, 600 mg, oral, Q8H SANDHYA, Luz Elena Phan MD ??? lidocaine 2 g/250 mL (8 mg/mL) dextrose 5% (premix), 1.5 mg/kg/hr ([place]), intravenous, Continuous, Gretchen Rene MD PhD, Last Rate: 9.39 mL/hr at 10/18/17 0718, 1.5 mg/kg/hr at 10/18/17 0718 ??? naloxone (NARCAN) 0.4 mg/mL injection 0.04-0.4 mg, 0.04-0.4 mg, intravenous, Q10 Min PRN, Luz Elena Phan MD ??? ondansetron (ZOFRAN) injection 4 mg, 4 mg, intravenous, Q4H PRN, Nhi Pop MD ??? sodium chloride 0.9% flush 0.5-20 mL, 0.5-20 mL, intra-catheter, Q8H SANDHYA, Luz Elena Phan MD ??? sodium chloride 0.9% flush 0.5-20 mL, 0.5-20 mL, intra-catheter, PRN, Luz Elena Phan MD Physical Exam: NAD, alert Nonlabored breathing Extremities warm, well-perfused Abdominal incision with dressing intact, 50% shadowing, stable Ostomy pink, perfused Perineal incisions around flap c/d/i with sutures Flap pink, warm, good capillary refill. Slight duskiness to very edge of distalmost apex of flap. Drains: serosanguinous Lab/Radiology/Diagnostic Review: Chem/LFT Lab History Some values may be hidden. Unless noted otherwise, only the newest values recorded on each date aredisplayed. Labs-Chem/LFT Latest Ref Range 12/16/16 04/04/17 10/07/17 10/17/17 Sodium 135 - 145 mmol/L 142 140 134 (A) Creatinine 0.60 - 1.10 mg/dL 0.63 0.56 (A) 0.61 CrCl- Actual Body Weight (Cockcroft-Gault) 102.2 91.9 124.2 113.7 (A) Abnormal value Hematology Lab History Some values may be hidden. Unless noted otherwise, only the newest values recorded on each date aredisplayed. Labs - Hematology Latest Ref Range 12/16/16 10/07/17 10/17/17 WBC 3.8 - 9.9 K/cumm 5.38 5.5 12.7 (A) Hgb 11.9 - 15.5 g/dL 16.3 (A) 15.3 13.1 Hct 35.6 - 45.5 % 47.2 (A) 44.7 39.3 Plt 150 - 400 K/cumm 240 238 201 Neutrophils, abs 1.7 - 6.5 K/cumm 3.44 3.7 10.8 (A) (A) Abnormal value ASSESSMENT Roxana Andersen is a 67 y.o. female POD 1 s/p APR & VRAM reconstruction PLAN - q2h flap checks; no pressure to flap - strict side lying only while in bed - physical therapy today to learn OOB by logroll to standing only; no sitting; OK to ambulate - keep Tom catheter - bacitracin BID to incisions around flap, cover with ABD - Interdry to groin folds please PRS Contact information: Daytime PRS Recon resident (-): Tejal Garcia [phone] Otherwise: ?? 7AM - 5PM please call the Plastic Surgery Consult Pager [phone] to be directed to the correct Plastic Surgery resident. ?? Weeknights 5PM - 7AM, All day on Weekends, All day on Holidays please call the Doctor Of Dental Medicine to find the It Risk And Assurance Senior Manager Plastic Surgery resident Tejal Garcia MD 10/18/2017 Cosigned by Clarita Villa MD at 10/22/2017 8:26 AM CDT * Ajit Davila MD - 10/17/2017 6:51 PM CDT Plastic Surgery Post-Op Check October 17, 2017 6:51 PM Subjective Roxana Andersen is a 67 y.o. female who is POD0 from May. No acute events since OR. Pain controlled on current regimen. Doing well. Objective MOST RECENT VITALS: Vitals: 10/17/17 1630 10/17/17 1640 10/17/17 1732 10/17/17 1835 BP: 148/72 146/79 138/78 138/78 BP Location: Left arm Left arm Patient Position: Lying Lying Pulse: 105 89 92 92 Resp: Temp: 36.6 ??C (97.9 ??F) 36.6 ??C (97.9 ??F) TempSrc: Oral Oral SpO2: 93% 96% 93% 93% Weight: 79.4 kg (175 lb) Height: 157.5 cm (5' 2 ) I&O Intake/Output Summary (Last 24 hours) at 10/17/17 1851 Last data filed at 10/17/17 1739 Gross per 24 hour Intake 4400 ml Output 820 ml Net 3580 ml Physical Exam: General: NAD Lungs: Unlabored breathing on NC Cardiac: regular rate Wound: Abdo incision dressing intact w/ 50% shadowing, JPs serosang 100cc since OR total, ostomy pink Extremities: Warm well perfused. No edema. Flap incisions c/d/i, tom in place, flap soft, warm, pink and paler than surround with 3s cap refil. Minimal edema. Assessment/Plan Roxana Andersen is a 67 y.o. female who is POD0 from APR VRAM. PLAN: Q2 flap checks, strict side lying and bedrest overnight with pillows between knees, call PRS construction safety manager if change in exam or questions. Ajit Davila MD 10/17/2017 If you have questions, please check Amion to find the resident responsible for this patient's care.If uncertain, please call: ?? Weekdays 7AM - 5PM please call the Plastic Surgery Consult Pager [phone] to be directed to the correct Plastic Surgery resident. ?? Weeknights 5PM - 7AM, All day on Weekends, All day on Holidays please call the Doctor Of Dental Medicine to find the It Risk And Assurance Senior Manager Plastic Surgery resident * Lavinia Ley MD - 10/17/2017 5:47 PM CDT Postoperative Assessment Subjective Pain control adequate. Denies N/V. Objective Vitals: Vitals: 10/17/17 1732 BP: 138/78 Pulse: 92 Resp: 16 Temp: 36.6 ??C (97.9 ??F) SpO2: 93% Gen: AAOX3, NAD Pulm: NLB with symmetrical expansion CV: RRR Abd: Soft, ND, appropriately tender, wounds w/ dressings with some bloody strikethough : Tom in place draining clear urine Skin: wwp Neuro: moving all 4 extremities Assessment 67 y.o. female with h/o anal squamous cell ca now POD0 S/P APR with VRAM on 10/17. Doing well overall. Plan Neuro: Pain control w/ multimodal therapy CV: VSS Pulm: IS GI: CLD, IVF : continue tom ID: Periop abx Activity: OOB, Ambulate TID PPx: SCDs, SQ heparin injections Cosigned by Mutch, Tania G., MD at 10/18/2017 9:17 AM CDT documented in this encounter Consult Notes * Sarahi Solis, CANDY - 10/21/2017 9:35 AM CDTAssociated Order(s): CONSULT TO WOUND CARE Following patient for colostomy post-operative education. Pouch is currently intact. I watched empty pouch. He did well. Supplies discussed and ordered for outpatient. Please call wound/ostomy for any questions or concerns. Thank you! Massiel Solis RN, BSN [facility] Wound Ostomy Team [phone] documented in this encounter Nursing Notes * Adrienne Arreola RN - 10/20/2017 9:57 PM CDT IV to left hand removed accidentally by patient, left hand noted to be swollen. Hand elevated on pillow, pt denies pain, MD Burns made aware, NNO received, WCTM * Adrienne Arreola RN - 10/20/2017 3:54 PM CDT Pt care assumed at 1515, pt resting comfortably, denies complaints of pain, pt in NAD, updated on POC, WCTM * Daija Espino RN - 10/20/2017 1:41 PM CDT Wound/Ostomy Consult Note Ostomy Consult Note Date of Admission: 10/17/2017 5:10 AM Today's Date: 10/20/17 Current Hospital Day: Hospital Day: 4 Reason for Consult: post op colostomy education Nutrition Body mass index is 32.01 kg/m??. Adult Diet Regular Support Surfaces Type of Bed: fluidized air Type of Sitting Surface: ehob seat cushion provided Ostomy Assessment: Type of Ostomy: colstomy Stoma Shape: oval viewed through pouch Stoma Location: LLQ Appliance Intact: Yes Pouch Supplies: at bedside Pouch Type: yuliana 1 peice Drainage: Not to gravity Excretions: Effluent Excretion Color: brown 10/20/17 1340 Colostomy LLQ Placement Date: 10/17/17 Location: LLQ Stomal Appliance 1 piece;Intact Stoma Assessment Humptulips compelted stoma model pouch change reviewed handouts, including activity post discharge, reviewed stoma powder/prep, ordering supplies. Education: Education packet reviewed: with patient/spouse Plan of care discussed with: patient Questions answered: Yes Wound/Ostomy will follow patient: yes Any questions or concerns please contact the Wound/Ostomy department at [phone] Daija Espino RN * Sarahi Solis RN - 10/19/2017 11:25 AM CDT Wound/Ostomy Consult Note Ostomy Consult Note Date of Admission: 10/17/2017 5:10 AM Today's Date: 10/19/17 Current Hospital Day: Hospital Day: 3 Reason for Consult: following for colostomy teaching. Please see education flow sheet. Nutrition Body mass index is 32.01 kg/m??. Adult Diet Regular Support Surfaces Type of Bed: Type of Sitting Surface: Ostomy Assessment: Type of Ostomy: colostomy Stoma Shape: circular Stoma Location: left upper qudrant Appliance Intact: Yes Peristomal Ulcer: No Peristomal Skin Treatment: Absorptive Dressing, Barrier Wipe, Powder Pouch Supplies: yuliana #[id number] Pouch Type: flat Drainage: Excretions: none Excretion Color: none Comments: Education: Education packet reviewed: no Plan of care discussed with: Darline Questions answered: Yes Wound/Ostomy will follow patient: yes Any questions or concerns please contact the Wound/Ostomy department at [phone] Sarahi Solis RN * Sarahi Solis RN - 10/18/2017 9:58 AM CDT Wound/Ostomy Consult Note Ostomy Consult Note Date of Admission: 10/17/2017 5:10 AM Today's Date: 10/18/17 Current Hospital Day: Hospital Day: 2 Reason for Consult: new teacher for colostomy Nutrition Body mass index is 32.01 kg/m??. Adult Diet Regular Support Surfaces Type of Bed: Type of Sitting Surface: Ostomy Assessment: Type of Ostomy: colostomy Stoma Shape: circular Stoma Location: left upper quadrant Pouch Supplies: [employer]mob #[id number] Pouch Type: flat Drainage: Excretions: , None Excretion Color: Comments: Education: Education packet reviewed: Plan of care discussed with: Questions answered: Yes Wound/Ostomy will follow patient: yes Any questions or concerns please contact the Wound/Ostomy department at [phone] Sarahi Solis RN * Erendira Hatch RN - 10/17/2017 8:19 PM CDT Admit post op to room 6909 @ 1730. Arousable and appropriate. OPTICAL WORKER and Lidocaine gtt for pain. Foleyto gravity. Ice chips prn with no nausea. Perineal flap intact. Warm with sutures intact. Small amtbloody drainage. Pt lying on left side with pillows in between legs. IPCs on. Abdominal binder on. Ostomy intact. PETERSON x2 intact O2 @3L/PATIENT SERVICE REPRESENTATIVE. See labs, flowsheets. documented in this encounter Miscellaneous Notes * Plan of Care - Tila Wang DPT - 10/21/2017 9:42 AM CDT Problem: Mobility Goal: LTG - Patient will ambulate community distance Ambulate community distances independently. Outcome: Progressing Goal: STG - Patient will ambulate Ambulate 200 feet with or without AAD and supervision Outcome: Progressing Goal: STG - Patient will ambulate up and down a curb/step Ascend/descend curb step no HR CGA x 2 repetitions Outcome: Progressing Problem: PT Misc Goal: STG - Misc 1 Perform log roll to stand transfer maintaining precautions with supervision Outcome: Progressing * Plan of Care - Adrienne Arreola RN - 10/20/2017 7:43 PM CDT Activity: ??? Ability to tolerate increased activity will improve Progressing ??? Will remain free from falls Progressing Activity: ??? Mobility will improve Progressing Bowel/Gastric: ??? Gastrointestinal status for postoperative course will improve Progressing Coping: ??? Level of anxiety and/or depression will decrease Progressing Health Behavior: ??? Understanding of discharge needs will improve Progressing Lack of Knowledge: ??? Understanding of discharge needs will improve Progressing Lack of Knowledge: ??? Understanding of ways to prevent future skin breakdown will improve Progressing ??? Ability to identify appropriate dietary choices will improve Progressing Nutritional: ??? Nutritional status will improve Progressing Nutritional: ??? Dietary intake will improve Progressing ??? Ability to maintain a balanced intake and output will improve Progressing Physical Regulation: ??? Postoperative complications will be avoided or minimized Progressing Respiratory: ??? Ability to maintain a clear airway will improve Progressing Sensory: ??? Pain level will decrease Progressing Skin Integrity: ??? Signs of wound healing will improve Progressing Skin Integrity: ??? Risk for impaired skin integrity will decrease Progressing ??? Ability to demonstrate warm and dry skin will improve Progressing ??? Circulation will improve to fullest extent possible Progressing Goals: Clinical Goals for the Shift: (pain control, frequent ambulation, VS, labs) Summary: * Plan of Care - Leydi Mares RN - 10/20/2017 11:00 AM CDT Goals: Clinical Goals for the Shift: flap managment Summary: Remains on lidocaine infusion for pain control. Flap with positive doppler. Free from injury Call light within reach. @ bedside. * Plan of Care - Kristine Rodriges RRT - 10/20/2017 9:44 AM CDT Pt has a history of copd. Pt does smybicort at home. Pt self admin home med this morning. Pt was able to describe proper mdi technqiue to rt. Pt is bedside, rn to admin. * Plan of Care - Kristine Rodriges RRT - 10/20/2017 9:00 AM CDT Pt has a history of copd. Pt used symbicort from home this morning. Pt is able to self admin. Continue symbicort 80/4.5 bid, bedside. * Plan of Care - Jude Ariza RN - 10/19/2017 9:11 PM CDT Goals: Clinical Goals for the Shift: flap managment Summary: pt flap is doing well and perfusing without any complications Activity: ??? Ability to tolerate increased activity will improve Progressing ??? Will remain free from falls Progressing Activity: ??? Mobility will improve Progressing Bowel/Gastric: ??? Gastrointestinal status for postoperative course will improve Progressing Coping: ??? Level of anxiety and/or depression will decrease Progressing Health Behavior: ??? Understanding of discharge needs will improve Progressing Lack of Knowledge: ??? Understanding of discharge needs will improve Progressing Lack of Knowledge: ??? Understanding of ways to prevent future skin breakdown will improve Progressing ??? Ability to identify appropriate dietary choices will improve Progressing Nutritional: ??? Nutritional status will improve Progressing Nutritional: ??? Dietary intake will improve Progressing ??? Ability to maintain a balanced intake and output will improve Progressing Physical Regulation: ??? Postoperative complications will be avoided or minimized Progressing Respiratory: ??? Ability to maintain a clear airway will improve Progressing Sensory: ??? Pain level will decrease Progressing Skin Integrity: ??? Signs of wound healing will improve Progressing Skin Integrity: ??? Risk for impaired skin integrity will decrease Progressing ??? Ability to demonstrate warm and dry skin will improve Progressing ??? Circulation will improve to fullest extent possible Progressing * Plan of Care - Cara Herndon RN - 10/19/2017 5:02 PM CDT Report per DCAM: dc OPTICAL WORKER to PO, keep tom, PT/OT Impression: s/p APR with VRAM flap with colostomy Referrals: open referral with [facility] for SN, agency contacted and updated on ADD, HH order fax attached to 10-18 referral. When contacting [facility] please use date as well to identify patient. Agency has two patient's with the same name with an open referral . Will follow PT/OT recommendations, patient will likely progress to discharge to home per her preference. Will follow need for wheeled walker as well. Support:spouse Transportation: spouse F/U Appt:per CRS ADD: 10-21 Case Management will follow for planning and referrals as needed. * Plan of Care - Teagan Melendez PT - 10/19/2017 1:45 PM CDT Problem: PT Misc Goal: STG - Misc 1 Perform log roll to stand transfer maintaining precautions with supervision Outcome: Progressing * Plan of Care - Teagan Melendez PT - 10/19/2017 1:44 PM CDT Problem: Mobility Goal: STG - Patient will ambulate Ambulate 200 feet with or without AAD and supervision Outcome: Progressing * Plan of Care - Darline Hess RN - 10/19/2017 8:05 AM CDT Activity: ??? Ability to tolerate increased activity will improve Not Progressing ??? Will remain free from falls Not Progressing Activity: ??? Mobility will improve Not Progressing Bowel/Gastric: ??? Gastrointestinal status for postoperative course will improve Not Progressing Coping: ??? Level of anxiety and/or depression will decrease Not Progressing Health Behavior: ??? Understanding of discharge needs will improve Not Progressing Lack of Knowledge: ??? Understanding of discharge needs will improve Not Progressing Lack of Knowledge: ??? Understanding of ways to prevent future skin breakdown will improve Not Progressing ??? Ability to identify appropriate dietary choices will improve Not Progressing Nutritional: ??? Nutritional status will improve Not Progressing Nutritional: ??? Dietary intake will improve Not Progressing ??? Ability to maintain a balanced intake and output will improve Not Progressing Physical Regulation: ??? Postoperative complications will be avoided or minimized Not Progressing Respiratory: ??? Ability to maintain a clear airway will improve Not Progressing Sensory: ??? Pain level will decrease Not Progressing Skin Integrity: ??? Signs of wound healing will improve Not Progressing Skin Integrity: ??? Risk for impaired skin integrity will decrease Not Progressing ??? Ability to demonstrate warm and dry skin will improve Not Progressing ??? Circulation will improve to fullest extent possible Not Progressing Goals: Clinical Goals for the Shift: Flap Management Summary: pt progressing towards goals * Plan of Care - Ignacio Hess RN - 10/19/2017 5:57 AM CDT Goals: Clinical Goals for the Shift: Flap Management, maintain pain control, remain free of falls. Summary: Activity: ??? Ability to tolerate increased activity will improve Progressing ??? Will remain free from falls Progressing Activity: ??? Mobility will improve Progressing Bowel/Gastric: ??? Gastrointestinal status for postoperative course will improve Progressing Coping: ??? Level of anxiety and/or depression will decrease Progressing Health Behavior: ??? Understanding of discharge needs will improve Progressing Lack of Knowledge: ??? Understanding of discharge needs will improve Progressing Lack of Knowledge: ??? Understanding of ways to prevent future skin breakdown will improve Progressing ??? Ability to identify appropriate dietary choices will improve Progressing Nutritional: ??? Nutritional status will improve Progressing Nutritional: ??? Dietary intake will improve Progressing ??? Ability to maintain a balanced intake and output will improve Progressing Physical Regulation: ??? Postoperative complications will be avoided or minimized Progressing Respiratory: ??? Ability to maintain a clear airway will improve Progressing Sensory: ??? Pain level will decrease Progressing Skin Integrity: ??? Signs of wound healing will improve Progressing Skin Integrity: ??? Risk for impaired skin integrity will decrease Progressing ??? Ability to demonstrate warm and dry skin will improve Progressing ??? Circulation will improve to fullest extent possible Progressing * Plan of Care - Cara Herndon RN - 10/18/2017 3:48 PM CDT Case management following for discharge planning. [facility] referral to [facility] per patient choice with H&P and OP note fax attached. Awaiting acceptance of referral . * Plan of Care - Madeline Lance RN - 10/18/2017 1:50 PM CDT Goals: Clinical Goals for the Shift: Flap Management Summary: Activity: ??? Ability to tolerate increased activity will improve Progressing ??? Will remain free from falls Progressing Activity: ??? Mobility will improve Progressing Bowel/Gastric: ??? Gastrointestinal status for postoperative course will improve Progressing Coping: ??? Level of anxiety and/or depression will decrease Progressing Health Behavior: ??? Understanding of discharge needs will improve Progressing Lack of Knowledge: ??? Understanding of discharge needs will improve Progressing Lack of Knowledge: ??? Understanding of ways to prevent future skin breakdown will improve Progressing ??? Ability to identify appropriate dietary choices will improve Progressing Nutritional: ??? Nutritional status will improve Progressing Nutritional: ??? Dietary intake will improve Progressing ??? Ability to maintain a balanced intake and output will improve Progressing Physical Regulation: ??? Postoperative complications will be avoided or minimized Progressing Respiratory: ??? Ability to maintain a clear airway will improve Progressing Sensory: ??? Pain level will decrease Progressing Skin Integrity: ??? Signs of wound healing will improve Progressing Skin Integrity: ??? Risk for impaired skin integrity will decrease Progressing ??? Ability to demonstrate warm and dry skin will improve Progressing ??? Circulation will improve to fullest extent possible Progressing * Plan of Care - Tania Mcgowan RN - 10/18/2017 1:52 AM CDT Activity: ??? Ability to tolerate increased activity will improve Progressing ??? Will remain free from falls Progressing Activity: ??? Mobility will improve Progressing Bowel/Gastric: ??? Gastrointestinal status for postoperative course will improve Progressing Coping: ??? Level of anxiety and/or depression will decrease Progressing Health Behavior: ??? Understanding of discharge needs will improve Progressing Lack of Knowledge: ??? Understanding of discharge needs will improve Progressing Lack of Knowledge: ??? Understanding of ways to prevent future skin breakdown will improve Progressing ??? Ability to identify appropriate dietary choices will improve Progressing Nutritional: ??? Nutritional status will improve Progressing Nutritional: ??? Dietary intake will improve Progressing ??? Ability to maintain a balanced intake and output will improve Progressing Physical Regulation: ??? Postoperative complications will be avoided or minimized Progressing Respiratory: ??? Ability to maintain a clear airway will improve Progressing Sensory: ??? Pain level will decrease Progressing Skin Integrity: ??? Signs of wound healing will improve Progressing Skin Integrity: ??? Risk for impaired skin integrity will decrease Progressing ??? Ability to demonstrate warm and dry skin will improve Progressing ??? Circulation will improve to fullest extent possible Progressing Goals: Clinical Goals for the Shift: Flap Management Summary: Patients flap remains perfused throughout night * Plan of Care - Erendira Hatch RN - 10/17/2017 8:05 PM CDT Goals: Summary:Care plan initiated. * Op Note - Clarita Villa MD - 10/17/2017 7:30 AM CDT Patient Name: Roxana Andersen OPERATIVE NOTE SURGEON: Tania Cortes MD SURGICAL TEAM: Surgeon(s) and Role: Panel 1: * Luz Elena Phan MD - Resident - Assisting * Tania Cortes MD - Primary Panel 2: * Clarita Villa MD - Primary DATE OF SURGERY : 10/17/2017 PREOPERATIVE DIAGNOSIS: Pre-op Diagnosis * Anal cancer (CMS/HCC) [C21.0] POSTOPERATIVE DIAGNOSIS: Post-op Diagnosis * Anal cancer (CMS/HCC) [C21.0] PROCEDURE: 1. Vertical rectus abdominis myocutaneous flap reconstruction of the perineum 2. Posterior vaginal wall reconstruction 3. Complex abdominal closure INDICATION FOR PROCEDURE: Roxana Andersen is a 67 y.o. female who has colorectal cancer that requires abdominal perineal resection. The decision to take her to the operating room for this procedure was made by Dr. Cortes and I was asked to assist with reconstruction. The risks, benefits, and alternatives were discussed with the patient. The risks include but are not limited to bleeding, infection, injury to surrounding structures, and need for further procedures.The patient voiced understanding, wished proceed, and signed the consent. All of their questions were answered. OPERATIVE FINDINGS: The posterior vaginal wall was resected and we were able to reconstructed with a skin paddle from the VRAM. The superior aspect of the anterior fascia of the abdominal wall was quite thin. We were able to get a primary closure of the fascia by advancing the superior aspect on the right side from over the ribs. This advancement was about 4 cm. The flap remained viable throughout the case. ANESTHESIA: General IMPLANTS: Nothing was implanted during the procedure OPERATIVE DETAILS After consent was signed and the patient was marked, the patient was brought to the operating room and placed on the operating room table in supine position. I refer you to Dr. Cortes's note regardingthe abdominal perineal resection. After completion of the APR, we were called into the case to elevate our vertical rectus abdominis myocutaneous flap. An additional time-out was made to identify the correct patient site and procedure to be performed. We also confirmed the antibiotics were up-to-date. We began by extending the incision of the abdomen superiorly and marked our skin paddle. We then dissected the posterior sheath from the muscle. We identified our inferior epigastric artery which appeared to be intact and viable. This was protected throughout the case. Using careful dissection superiorly we performed a anterior fascial sparing approach to the skin paddle. This would later allow for a primary closure of the anterior fascia with advancement of the fascia over the rib cage. We then carefully elevated our skin paddle and muscle. We ligated multiple intercostal vessels and nerves supplying the rectus muscle. Once the muscle was freed from the surrounding tissue, we then transected it superiorly. We used a Ligaclip to the superior epigastric artery. We then split the posterior fascia inferiorly to avoid kinking of the muscle pedicle. Once the muscle and skin paddle were raised we then delivered it into the pelvic floor. The patientremained in lithotomy position and that allowed us to follow the muscle to avoid kinking or twisting of the flap. We then inset the flap to reconstruct the vaginal wall. The posterior wall was identified and using 2-0 Vicryl sutures we were able to close off the pelvic inlet and reconstruct the vagina. We secured the flap to the lateral cuevas of the remaining soft tissue and posteriorly as well. I then began the abdominal closure. We began with using 1-0 Looped PDS at the inferior aspect of the wound. Fortunately the patient hadredundancy of her anterior fascial wall which allowed for primary closure inferiorly. The anterior rectus fascia superiorly was quite thin. I was able to advance fascia from over the right rib cage to allow for primary closure. The posterior sheath was incorporated into the closure and malleable iswere used to protect the bowel. Once the abdominal wall was closed we then irrigated with antibiotic solution. I placed a 15 Arabic round Javid plane and then closed the soft tissue with layered 3-0 and 2-0 Vicryl sutures. The skin was closed with dotty. I turned the patient back over to Dr. Cortes's team for the maturation of the stoma. I refer you to his dictation for details. I was present for the critical portions of the case which included all aspects except the initial dissection of the posterior sheath. Dr. Carreon was immediately available during my absence. Estimated Blood Loss: 150 mL Intraoperative Fluids: See anesthesia record Blood/Blood Products Transfused: 0 mls Specimens: Order Name Source Comment Collection Info Order Time BASIC METABOLIC PANEL 10/07/2017 10:43 AM CBC WITH AUTO DIFFERENTIAL 10/07/2017 10:43 AM TYPE AND SCREEN 14 DAY 10/07/2017 10:43 AM Is this test being ordered in advance for a procedure? Yes Expected date of procedure: 10/17/2017 Has the patient been transfused in the past 3 months? No Has the patient been in the past 3 months? No SURGICAL PATHOLOGY Vagina, Biopsy Collected By: Tania Cortes MD 10/17/2017 11:42 AM Complications: None Condition on Discharge from the operating room was stable Clarita Villa MD Date: 10/17/2017 Time: 3:10 PM TEACHING ATTESTATION : I was present and I participated in all portions of the procedure except Dissection of the posterior rectus sheath and Dr. Carreon was immediately available for all remainingportions of the case. 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 Abdominoperineal resection with posterior vaginectomy. 2. A rectus abdominis flap reconstruction of pelvic floor. Please see Dr. Clarita Villa's operative note for details. ANESTHESIA General per endotracheal tube. INDICATIONS FOR PROCEDURE Patient is a 67 y.o. 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 She was re-stage with a PET scan which showed no evidence of any metastatic or distant disease. Therefore she now proceeds with definitive resection. OPERATIVE FINDINGS Liver was normal. Peritoneal cavity was normal once the specimen was removed. There was gross evidence of tumor around the anal canal and it appeared to involve the posterior wall of the vagina.. Margins appeared grossly normal. OPERATIVE PROCEDURE With informed consent, patient was brought to the operating room, placed in the supine position. They were was 1 g of IV ertapenem and this covered the perioperative antibiotics. Pneumatic compression stockings were placed on the lower extremities bilaterally. General anesthesia was then induced. The endotracheal tube was placed and secured and a Tom catheter was inserted. The patient was placed in the modified lithotomy position with the use of Yellofin stirrups and the abdomen was then prepped and draped in the usual sterile fashion. We entered the abdomen through a midline incision. Once the abdomen was opened, Danny wound retractor was inserted and we then packed the small bowel to the right upper quadrant and we then began mobilization of the left colon. As we incised the lateral attachments, breaking into the retroperitoneal plane, the left ureter was readily identified and was reflected into the retroperitoneum. We completely medialized the sigmoid colon and we then divided the lateral attachments heading up towards the splenic flexure. We then continued to elevate the left colon and its mesentery off the retroperitoneum. Next, we made an incision on the right side of the peritoneum at the level of the sacral promontory to get underneath the superior rectal artery as we then elevated this off the retroperitoneum all the way up to the origin of the inferior mesenteric artery. Once the artery was isolated and the left ureter was clearly out of harm's way, it was then divided between clamps and tied with 0 Vicryl ties. We then elevated the inferior mesenteric vein off the retroperitoneum all the way up to the inferior border of the pancreas. Next, we identified our proximal site of transection as the mesentery was then divided between clamps, tying with 0 Vicryl ties at the level of the marginal artery. This was isolated, divided, had excellent pulsatile flow. This was then clamped and tied with an 0 Vicryl tie. We then divided the bowel with the firing of an 80 mm SHEILA stapler. Next, we began our pelvic dissection as we entered the avascular plane of the presacral space posteriorly carrying this all the way down to the level of pelvic floor. We then incised the peritoneum laterally all the way down to the anterior peritoneal reflection which was also incised. We then continued our lateral and anterior dissection circumferentially all the way down to the level of pelvic floor. This then completed the pelvic dissection as we then placed a lap posteriorly down into the pelvis and a 19-Arabic Javid drain was then placed through a left lower quadrant stab incision, placing this down into the pelvis. We then had adequate mobilization of our proximal colon for the colostomy. Then created the colostomy in the left side of the abdomen in the premarked position, as a quarter-sized disc of skin was excised carrying this all the way down to the level of fascia. The fascia was then incised in a vertical fashion. Muscles was split along its fibers and was then dilated 2 fingerbreadths. We then brought the colostomy up through the stoma aperture, and maintaining proper orientation as this was then secured to the skin with a Edel clamp. We inspected the left upper quadrant and there was a capsular tear to the spleen. This was managed with electrocautery and we then packed the spleen with thrombin soaked Surgicel andpacked this for several minutes. At this point in time, Dr. Villa and her service came in and harvested the rectus flap. Given the splenic injury, we performed elected to perform the perineal dissection in the modified lithotomy position. Therefore the patient was frog- legged in the elephant stirrups and the perineum was prepped and draped in usual sterile fashion. We made an elliptical incision from the tip of the coccyx posteriorly to the ischial tuberosities laterally and to the posterior fourchette of the vagina anteriorly. The ischiorectal tissue was then divided circumferentially all the way down to the level of pelvic floor we then entered the pelvic cavity just above the tip of the coccyx. The levators on the right and the left side all the way down to the vagina and we then eviscerated the specimen through the wound. We then carried our incision into the posterior wall of the vagina all the way up above the tumor and excised the posterior wall of the distal proximal vagina. The specimen was then removed. Dr. Villa in her service then mobilized the flap down into the pelvis and close the abdominal wall. Once the abdomen was closed we returned and we then matured the colostomy as the staple line was then excised and the colostomy was then matured in a simple fashion with interrupted 3-0 Vicryl sutures. At this point in time, Dr. Villa and her service came in and reconstructed the pelvic floor. Please see her operative note for details. This then concluded my portion of the case. Please see Dr. Villa's operative note for sponge, needle, and instrument counts, total IV fluids, and estimated blood loss. SPECIMEN Sigmoid colon, rectum, and anus. Of note, I, Dr. Cortes, was present for my entire portion of the case. Tania Cortes M.D. * Brief Op Note - Clarita Villa MD - 10/17/2017 7:30 AM CDT Operative Progress Note Attending Surgeon: Clarita Villa MD Surgical Team: Vessel Slag Worker: Leatha Marina RN Vessel Slag Worker Relief: Madeline Farmer RN Scrub Relief: Madeline Farmer RN Scrub: Cecille Rivas SA DATE OF SURGERY : 10/17/2017 Preoperative Diagnosis: Pre-op Diagnosis * Anal cancer (CMS/HCC) [C21.0] Postoperative Diagnosis: Post-op Diagnosis * Anal cancer (CMS/HCC) [C21.0] Perineal wound Procedure: Vertical rectus abdominis myocutaneous flap reconstruction of the perineum Posterior vaginal wall reconstruction Abdominal wall closure Operative Findings: The posterior vaginal wall was reconstructed with the skin paddle of the rectus flap. The flap remained viable throughout the case. Estimated Blood Loss: 150 mL Intraoperative Fluids: See anesthesia record Specimens: ID Type Source Tests Collected by Time A : Distal Vaginal Margin Tissue Vagina, Biopsy SURGICAL PATHOLOGY Tania Cortes MD 10/17/2017 1142 B : Sigmoid Colon, Rectum, Anus Tissue Colon, Resection, Tumor SURGICAL PATHOLOGY Tania Cortes MD 10/17/2017 1145 Implants: Nothing was implanted during the procedure Blood/Blood Products Transfused: 0 mls Complications: None Condition on Discharge from the operating room was stable Clarita Villa MD Date: 10/17/2017 Time: 3:06 PM TEACHING ATTESTATION : I was present and I participated in all portions of the procedure except Initial release of the posterior rectus sheath and remained immediately available during all remaining portions of the case. documented in this encounter Plan of Treatment Not on file documented as of this encounter Procedures Procedure Name Priority Date/Time Associated Diagnosis Comments CBC WITHOUT DIFFERENTIAL Timed 10/20/2017 11:53 PM CDT BASIC METABOLIC PANEL Timed 10/20/2017 11:53 PM CDT CBC WITHOUT DIFFERENTIAL Timed 10/20/2017 12:28 AM CDT BASIC METABOLIC PANEL Timed 10/20/2017 12:28 AM CDT US VEIN DUPLEX LOWER EXTREMITY BILATERAL COMPLETE ED Urgent/IP Urgent 10/19/2017 4:39 PM CDT DIFFERENTIAL AUTO Timed 10/19/2017 1:1 5 AM CDT CBC WITH AUTO DIFFERENTIAL Timed 10/19/2017 1:15 AM CDT BASIC METABOLIC PANEL Timed 10/19/2017 1:15 AM CDT DIFFERENTIAL AUTO Timed 10/17/2017 10:33 PM CDT CBC WITH AUTO DIFFERENTIAL Timed 10/17/2017 10:33 PM CDT LIDOCAINE LEVEL Routine 10/17/2017 10:33 PM CDT BASIC METABOLIC PANEL Timed 10/17/2017 10:33 PM CDT POC BLOOD GAS AND CHEMISTRIES, ARTERIAL Routine Gen Lab 10/17/2017 10:39 AM CDT LOCAL FLAP - LOWER EXTREMITY 10/17/2017 7:25 AM CDT Anal cancer (CMS/HCC) RESECTION ABDOMINOPERINEAL 10/17/2017 7:25 AM CDT Anal cancer (CMS/HCC) SURGICAL PATHOLOGY Routine 10/17/2017 12:00 AM CDT Anal cancer (CMS/HCC) documented in this encounter Results * (ABNORMAL) CBC without differential (10/20/2017 11:53 PM CDT) Pathologist [facility] WBC 9.3 3.8 - 9.9 K/cumm [facility] Hgb 12.1 11.9 - 15.5 g/dL [facility] Hct 36.4 35.6 - 45.5 % [facility] Plt 224 150 - 400 K/cumm [facility] MPV 9.3 9.1 - 12.3 fL [facility] RBC 3.55(L) 3.90 - 5.20 M/cumm [facility] MCV 102.5(H) 81.3 - 96.4 fL [facility] MCH 34.1(H) 27.1 - 33.3 pg [facility] MCHC 33.2 32.3 - 35.7 g/dL [facility] RDW CV 12.2 11.1 - 14.9 % [facility] RDW SD 46.5 35.7 - 48.1 fL [facility] NRBC abs 0.00 0.00 - 0.01 K/cumm [facility] Blood specimen (specimen) 10/20/2017 11:53 PM CDT 10/21/2017 12:19 AM CDT Narrative [facility] - 10/21/2017 1:13 AM CDT us Tania Cortes MD LAB BLOOD ORDERABLES Final R esult [facility] [place] [address] * Basic metabolic panel (10/20/2017 11:53 PM CDT) Pathologist [facility] Sodium 139 135 - 145 mmol/L [facility] Potassium, pl 3.6 3.3 - 4.9 mmol/L [facility] Chloride 103 97 - 110 mmol/L [facility] CO2 27 22 - 32 mmol/L [facility] Anion gap 9 2 - 15 mmol/L [facility] BUN 14 8 - 25 mg/dL [facility] Creatinine 0.70 0.60 - 1.10 mg/dL [facility] Glucose 111 70 - 199 mg/dL [facility] Comment: Interpretive Data Fasting glucose >/= 126 mg/dl is diagnostic for diabetes. ?? Fasting is defined as no caloric intake for at least 8 hours. Fasting glucose between 100 mg/dl to 125 mg/dl is diagnostic of prediabetes. In a patient with classic symptoms of hyperglycemia or hyperglycemic crisis, a random glucose >/= 200 mg/dl is diagnostic for diabetes. In the absence of unequivocal hyperglycemia, results should be confirmed by repeat testing. The classification and Diagnosis of Diabetes Diabetes Care 2017;40 (Suppl. 1):S11. Current interpretive data was last revised 2017. Calcium 9.0 8.5 - 10.3 mg/dL [facility] Blood specimen (specimen) 10/20/2017 11:53 PM CDT 10/21/2017 12:19 AM CDT Narrative [facility] - 10/21/2017 12:44 AM CDT us Tania Cortes MD LAB BLOOD ORDERABLES Final R esult [facility] [place] [address] * (ABNORMAL) CBC without differential (10/20/2017 12:28 AM CDT) Pathologist [facility] WBC 9.2 3.8 - 9.9 K/cumm [facility] Hgb 11.4(L) 11.9 - 15.5 g/dL [facility] Hct 34.4(L) 35.6 - 45.5 % [facility] Plt 184 150 - 400 K/cumm [facility] MPV 9.5 9.1 - 12.3 fL [facility] RBC 3.33(L) 3.90 - 5.20 M/cumm [facility] MCV 103.3(H) 81.3 - 96.4 fL [facility] MCH 34.2(H) 27.1 - 33.3 pg [facility] MCHC 33.1 32.3 - 35.7 g/dL [facility] RDW CV 12.2 11.1 - 14.9 % [facility] RDW SD 46.5 35.7 - 48.1 fL [facility] NRBC abs 0.00 0.00 - 0.01 K/cumm [facility] Blood specimen (specimen) 10/20/2017 12:28 AM CDT 10/20/2017 1:26 AM CDT Narrative [facility] - 10/20/2017 1:38 AM CDT us Tania Cortes MD LAB BLOOD ORDERABLES Final R esult [facility] [place] [address] * (ABNORMAL) Basic metabolic panel (10/20/2017 12:28 AM CDT) Sodium 139 135 - 145 mmol/L [facility] Potassium, pl 3.9 3.3 - 4.9 mmol/L [facility] Chloride 102 97 - 110 mmol/L [facility] CO2 29 22 - 32 mmol/L [facility] Anion gap 8 2 - 15 mmol/L [facility] BUN 7(L) 8 - 25 mg/dL [facility] Creatinine 0.55(L) 0.60 - 1.10 mg/dL [facility] Glucose 119 70 - 199 mg/dL [facility] Comment: Interpretive Data Fasting glucose >/= 126 mg/dl is diagnostic for diabetes. ?? Fasting is defined as no caloric intake for at least 8 hours. Fasting glucose between 100 mg/dl to 125 mg/dl is diagnostic of prediabetes. In a patient with classic symptoms of hyperglycemia or hyperglycemic crisis, a random glucose >/= 200 mg/dl is diagnostic for diabetes. In the absence of unequivocal hyperglycemia, results should be confirmed by repeat testing. The classification and Diagnosis of Diabetes Diabetes Care 2017;40 (Suppl. 1):S11. Current interpretive data was last revised 2017. Calcium 8.9 8.5 - 10.3 mg/dL [facility] Blood specimen (specimen) 10/20/2017 12:28 AM CDT 10/20/2017 1:26 AM CDT Narrative [facility] - 10/20/2017 2:00 AM CDT us Tania Cortes MD LAB BLOOD ORDERABLES Final R esult Performing Organization Address [facility]/ZIP Co de Phone Number [facility] [place] [address] * US Vein Duplex Lower Extremity Bilateral Complete (10/19/2017 4:39 PM CDT) Anatomical Region Laterality Modality Vascular Bilateral Ultrasound 10/19/2017 4:16 PM CDT Narrative 10/22/2017 3:[address] [facility] - Department of Vascular Surgery, Vascular Laboratory [address] [place] [address] Lower Extremity Venous Ultrasound Report Patient Name: ROXANA ANDERSEN S : 1950 (67y 6m) Study Date: 10/19/2017 4:16:08 PM Gender: F Tech: AC Location: [id number] Ref.Provider: TANIA CORTES Height(Cm): BSA: Weight(Kg): Quality: Adequate Order Provider: TANIA CORTES Procedures: Vascular Report: Venous Duplex imaging was performed bilaterally in the lower extremities. The common femoral, femoral, popliteal, posterior tibial, peroneal veins were evaluated for patency, spontaneity and phasicity with Doppler, compression and augmentation maneuvers. Great saphenous vein proximal at the junction was evaluated with compression maneuvers. Indications: Pain in right leg. Findings: Performing Change House Attendant: Clarita Isaacs RVT. Bilateral: Venous Doppler signals [...] performed. Electronically Signed By: Donny Barreto MD [facility] 2017-10-22 15:13:27 CDT CC: CC: Procedure Note Donny Barreto MD - 10/22/2017 [facility] - Department of Vascular Surgery,Vascular Laboratory [address] [place] [address] Lower Extremity Venous Ultrasound Report Patient Name: ROXANA ANDERSEN SPatient ID: [id number] : 1950 (67y 6m)Study Date: 10/19/2017 4:16:08 PM Gender: FAccession #: [id number] Tech: ACLocation: [id number] Ref.Provider: TANIA CORTESHeight(Cm): BSA: Weight(Kg): Quality: AdequateOrder Provider: TANIA CORTES Procedures: Vascular Report: Venous Duplex imaging was performed bilaterally in the lower extremities.The common femoral, femoral, popliteal, posterior tibial, peroneal veins wereevaluated for patency, spontaneity and phasicity with Doppler, compression and augmentationmaneuvers. Great saphenous vein proximal at the junction was evaluated with compressionmaneuvers. Indications: Pain in right leg. Findings: Performing Change House Attendant: Clarita Isaacs RVT. Bilateral: Venous Doppler signals [...] 2017-10-22 15:13:27 CDT CC: CC: us Tania Cortes MD IM US PROCEDURES Final Resu lt * (ABNORMAL) Differential, auto (10/19/2017 1:15 AM CDT) Neutrophil abs 10.1(H) 1.7 - 6.5 K/cumm [facility] Imm gran abs 0.0 0.0 - 0.1 K/cumm [facility] Lymphocyte abs 1.6 0.8 - 3.3 K/cumm [facility] Monocyte abs 1.2(H) 0.2 - 0.8 K/cumm [facility] Eosinophil abs 0.0 0.0 - 0.5 K/cumm [facility] Basophil abs 0.0 0.0 - 0.1 K/cumm [facility] Neutrophil pct 77.8 % [facility] Comment: Interpretive Data Percent cell count reference ranges are not reported, since discordance with absolute values may lead to misinterpretation of CBC data. Current Interpretive Data was last revised on 2017. Imm gran pct 0.4 % [facility] Comment: Interpretive Data Percent cell count reference ranges are not reported, since discordance with absolute values may lead to misinterpretation of CBC data. Current Interpretive Data was last revised on 2017. Lymphocyte pct 12.0 % [facility] Comment: Interpretive Data Percent cell count reference ranges are not reported, since discordance with absolute values may lead to misinterpretation of CBC data. Current Interpretive Data was last revised on 2017. Monocyte pct 9.4 % [facility] Comment: Interpretive Data Percent cell count reference ranges are not reported, since discordance with absolute values may lead to misinterpretation of CBC data. Current Interpretive Data was last revised on 2017. Eosinophil pct 0.1 % [facility] Comment: Interpretive Data Percent cell count reference ranges are not reported, since discordance with absolute values may lead to misinterpretation of CBC data. Current Interpretive Data was last revised on 2017. Basophil pct 0.3 % [facility] Comment: Interpretive Data Percent cell count reference ranges are not reported, since discordance with absolute values may lead to misinterpretation of CBC data. Current Interpretive Data was last revised on 2017. Blood specimen (specimen) 10/19/2017 1:15 AM CDT 10/19/2017 1:47 AM CDT Narrative [facility] - 10/19/2017 1:57 AM CDT us Almaz Burkett NP LAB BLOOD ORDERABLES Final Res ult [facility] [place] [address] * (ABNORMAL) Basic metabolic panel (10/19/2017 1:15 AM CDT) Pathologist [facility] Sodium 132(L) 135 - 145 mmol/L [facility] Potassium, pl 4.9 3.3 - 4.9 mmol/L [facility] Chloride 98 97 - 110 mmol/L [facility] CO2 25 22 - 32 mmol/L [facility] Anion gap 9 2 - 15 mmol/L [facility] BUN 17 8 - 25 mg/dL [facility] Creatinine 0.80 0.60 - 1.10 mg/dL [facility] Glucose 140 70 - 199 mg/dL [facility] Comment: Interpretive Data Fasting glucose >/= 126 mg/dl is diagnostic for diabetes. ?? Fasting is defined as no caloric intake for at least 8 hours. Fasting glucose between 100 mg/dl to 125 mg/dl is diagnostic of prediabetes. In a patient with classic symptoms of hyperglycemia or hyperglycemic crisis, a random glucose >/= 200 mg/dl is diagnostic for diabetes. In the absence of unequivocal hyperglycemia, results should be confirmed by repeat testing. The classification and Diagnosis of Diabetes Diabetes Care 2017;40 (Suppl. 1):S11. Current interpretive data was last revised 2017. Calcium 8.6 8.5 - 10.3 mg/dL [facility] Blood specimen (specimen) 10/19/2017 1:15 AM CDT 10/19/2017 1:47 AM CDT Narrative [facility] - 10/19/2017 2:13 AM CDT us Almaz Burkett NP LAB BLOOD ORDERABLES Final [facility] [place] [address] * (ABNORMAL) CBC with auto differential (10/19/2017 1:15 AM CDT) Pathologist [facility] WBC 13.0(H) 3.8 - 9.9 K/cumm [facility] Hgb 11.9 11.9 - 15.5 g/dL [facility] Hct 36.2 35.6 - 45.5 % [facility] Plt 172 150 - 400 K/cumm [facility] MPV 9.5 9.1 - 12.3 fL [facility] RBC 3.45(L) 3.90 - 5.20 M/cumm [facility] MCV 104.9(H) 81.3 - 96.4 fL [facility] MCH 34.5(H) 27.1 - 33.3 pg [facility] MCHC 32.9 32.3 - 35.7 g/dL [facility] RDW CV 12.4 11.1 - 14.9 % [facility] RDW SD 48.0 35.7 - 48.1 fL [facility] NRBC abs 0.00 0.00 - 0.01 K/cumm [facility] Blood specimen (specimen) 10/19/2017 1:15 AM CDT 10/19/2017 1:47 AM CDT Narrative [facility] - 10/19/2017 1:57 AM CDT us Almaz Burkett NP LAB BLOOD ORDERABLES Final Res ult [facility] [place] [address] * (ABNORMAL) Differential, auto (10/17/2017 10:33 PM CDT) Neutrophil abs 10.8(H) 1.7 - 6.5 K/cumm [facility] Imm gran abs 0.1 0.0 - 0.1 K/cumm [facility] Lymphocyte abs 0.7(L) 0.8 - 3.3 K/cumm [facility] Monocyte abs 1.2(H) 0.2 - 0.8 K/cumm [facility] Eosinophil abs 0.0 0.0 - 0.5 K/cumm [facility] Basophil abs 0.0 0.0 - 0.1 K/cumm [facility] Neutrophil pct 84.9 % [facility] Comment: Interpretive Data Percent cell count reference ranges are not reported, since discordance with absolute values may lead to misinterpretation of CBC data. Current Interpretive Data was last revised on 2017. Imm gran pct 0.5 % [facility] Comment: Interpretive Data Percent cell count reference ranges are not reported, since discordance with absolute values may lead to misinterpretation of CBC data. Current Interpretive Data was last revised on 2017. Lymphocyte pct 5.4 % [facility] Comment: Interpretive Data Percent cell count reference ranges are not reported, since discordance with absolute values may lead to misinterpretation of CBC data. Current Interpretive Data was last revised on 2017. Monocyte pct 9.0 % [facility] Comment: Interpretive Data Percent cell count reference ranges are not reported, since discordance with absolute values may lead to misinterpretation of CBC data. Current Interpretive Data was last revised on 2017. Eosinophil pct 0.0 % [facility] Comment: Interpretive Data Percent cell count reference ranges are not reported, since discordance with absolute values may lead to misinterpretation of CBC data. Current Interpretive Data was last revised on 2017. Basophil pct 0.2 % [facility] Comment: Interpretive Data Percent cell count reference ranges are not reported, since discordance with absolute values may lead to misinterpretation of CBC data. Current Interpretive Data was last revised on 2017. Blood specimen (specimen) 10/17/2017 10:33 PM CDT 10/17/2017 11:31 PM CDT Narrative [facility] - 10/17/2017 11:43 PM CDT us Tania Cortes MD LAB BLOOD ORDERABLES Final R esult [facility] [place] [address] * Lidocaine level (10/17/2017 10:33 PM CDT) Lidocaine (Xylocaine) 2.7 1.5 - 5.0 mcg/mL [facility] Blood specimen (specimen) 10/17/2017 10:33 PM CDT 10/17/2017 11:30 PM CDT Narrative [facility] - 10/18/2017 12:44 AM CDT Draw 24 hours after infusion started. us Tania Cortes MD LAB BLOOD ORDERABLES Final R esult [facility] [place] [address] * (ABNORMAL) Basic metabolic panel (10/17/2017 10:33 PM CDT) Sodium 134(L) 135 - 145 mmol/L [facility] Potassium, pl 5.2(H) 3.3 - 4.9 mmol/L [facility] Chloride 102 97 - 110 mmol/L [facility] CO2 23 22 - 32 mmol/L [facility] Anion gap 9 2 - 15 mmol/L [facility] BUN 18 8 - 25 mg/dL [facility] Creatinine 0.61 0.60 - 1.10 mg/dL [facility] Glucose 250(H) 70 - 199 mg/dL [facility] Comment: Interpretive Data Fasting glucose >/= 126 mg/dl is diagnostic for diabetes. ?? Fasting is defined as no caloric intake for at least 8 hours. Fasting glucose between 100 mg/dl to 125 mg/dl is diagnostic of prediabetes. In a patient with classic symptoms of hyperglycemia or hyperglycemic crisis, a random glucose >/= 200 mg/dl is diagnostic for diabetes. In the absence of unequivocal hyperglycemia, results should be confirmed by repeat testing. The classification and Diagnosis of Diabetes Diabetes Care 2017;40 (Suppl. 1):S11. Current interpretive data was last revised 2017. Calcium 8.8 8.5 - 10.3 mg/dL [facility] Blood specimen (specimen) 10/17/2017 10:33 PM CDT 10/17/2017 11:31 PM CDT Narrative [facility] - 10/17/2017 11:59 PM CDT us Tania Cortes MD LAB BLOOD ORDERABLES Final R esult [facility] [place] [address] * (ABNORMAL) CBC with auto differential (10/17/2017 10:33 PM CDT) Pathologist [facility] WBC 12.7(H) 3.8 - 9.9 K/cumm [facility] Hgb 13.1 11.9 - 15.5 g/dL [facility] Hct 39.3 35.6 - 45.5 % [facility] Plt 201 150 - 400 K/cumm [facility] MPV 9.5 9.1 - 12.3 fL [facility] RBC 3.80(L) 3.90 - 5.20 M/cumm [facility] MCV 103.4(H) 81.3 - 96.4 fL [facility] MCH 34.5(H) 27.1 - 33.3 pg [facility] MCHC 33.3 32.3 - 35.7 g/dL [facility] RDW CV 12.4 11.1 - 14.9 % [facility] RDW SD 47.4 35.7 - 48.1 fL [facility] NRBC abs 0.00 0.00 - 0.01 K/cumm [facility] Blood specimen (specimen) 10/17/2017 10:33 PM CDT 10/17/2017 11:31 PM CDT Narrative [facility] - 10/17/2017 11:43 PM CDT us Tania Cortes MD LAB BLOOD ORDERABLES Final R esult [facility] [place] [address] * (ABNORMAL) POCT arterial blood gas (10/17/2017 10:39 AM CDT) pH, art POC 7.33(L) 7.35 - 7.45 [facility] pCO2, art POC 40 35 - 45 mmHg [facility] pO2, art POC 102 80 - 105 mmHg [facility] Na POC 136 135 - 145 mmol/L [facility] K POC 4.3 3.3 - 4.9 mmol/L [facility] Ionized Ca, POC 4.81 4.50 - 5.10 mg/dL [facility] Hematocrit POC 41.0 35.6 - 45.5 % [facility] Glucose POC GEM 3000 132 70 - 199 mg/dL [facility] Lactate POC GEM 3000 0.5(L) 0.7 - 2.2 mmol/L [facility] HCO3, art POC 21 20 - 30 mmol/L [facility] Total CO2, art POC 22 21 - 30 mmol/L [facility] BE, art POC -4.5 mmol/L [facility] O2 sat art POC 97 95 - 98 % [facility] Blood specimen (specimen) 10/17/2017 10:39 AM CDT 10/17/2017 10:39 AM CDT Narrative [facility] - 10/17/2017 10:56 AM CDT Tania Cortes MD LAB POCT ORDERABLES - DEVICE Final Result [facility] Department of Laboratories [place] [phone] * Surgical pathology (10/17/2017 12:00 AM CDT) Tissue (Vagina, Biopsy) 10/17/2017 11:42 AM CDT Tissue (Colon, Resection, Tumor) 10/17/2017 11:45 AM CDT Narrative PATHOLOGY [facility] - 10/25/2017 7:50 AM CDT EPIC results best viewed via link to PDF [facility] [place] [address] SURGICAL PATHOLOGY REPORT FINAL Patient Name: ?? ROXANA ANDERSEN Gender: ??F : ??1950 (Age: 67) Address: ??[address], [place], [place] ??[address] Hospital #: ??[id number] Taken:10/17/2017 Received:10/17/2017 Reported: 10/25/2017 Patient Type: [facility] ?? Service: Surgery Location: [place] [address] Physician(s): ??Tania Cortes M.D. Diagnosis: A. ??Vagina, distal margin, excision ? - No evidence of malignancy B. ??Large intestine and anus, abdominoperineal resection ? 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, post treatment, approximately 4 cm in greatest dimension - Tumor invades through perianal soft tissue into posterior vaginal wall (ypT4) - Perineural and lymphovascular space invasion present - Resection margins negative for tumor - No evidence of malignancy in seventeen regional lymph nodes (0/17), ypN0 - Sigmoid colon with diverticula - No evidence of malignancy in two sigmoid mesocolic lymph nodes (0/2) - See synoptic report /10/24/2017 13:38 By this signature, I attest that the above diagnosis is based upon my personal examination of the slides(and/or other material indicated in the diagnosis). Ronnie Caraballo M.D. Report Electronically Reviewed and Signed Out By ??Ronnie Caraballo M.D. 10/25/2017 07:50:55 Microscopic Description and Comment: Microscopic examination substantiates the above cited diagnosis. Thang Belcher M.D., Ph.D. History: The patient is a 67-year-old woman with anal cancer, status post chemoradiation. ??Operative procedure: Open abdominoperineal resection with posterior vaginectomy. Specimen(s) Received: A: Distal vaginal margin B: Sigmoid colon, Rectum, Anus Gross Description: The specimens are received in two formalin filled containers each labeled with the patient's name. ? A. ??The first container is also labeled distal vaginal margin. ??It consists of a 2.4 x 0.9 cm portion of irizarry-white mucosa, excised to a depth of 1.2 cm. ??The fragment is unoriented. ??The lateral and deep section margins are inked green. ??The fragment is bisected and the inked sides are placed face down in the container. ??Labeled A1. ??Jar 0. ? B. ??The second container is also labeled sigmoid colon, rectum, anus. ??It consists of a previously opened and anatomically oriented portion of large intestine, including sigmoid colon, rectum and anus, with attached portion of vagina. ??The specimen measures 47.8 cm from proximal distal, ranging in circumference from 3.1 cm to 12.2 cm. ??At the anorectal junction, there is a deep ulceration measuring 2.8 cm x 2.2 cm. ??The ulcer bed lies in opposition to the portion of vagina, which measures 4.3 x 2.8 cm. ??The ulcer is 4.0 cm from the distal margin and 43 cm from the proximal margin. ??The edges of the vaginal and perineum margin is inked in orange. ??Palpation of the mass shows a firm rim putative tumor around the ulcer, spanning a total area of approximately 4 cm. ??The entire tumor bed is blocked out in relation to underlying radial margin and divided in half. ??The tumor bed is serially sectioned to show a fibrous rim around the edge of the tumor, without a definitive mass on the left side. However, on the right side, a grossly identifiable tumor spans 2.4 cm proximal to distal by 1.7 x 1.3 cm in greatest cross section. ??The tumor appears to invade the vaginal wall, although a definitive fistula tract is not identified grossly. ??The mesorectum has been previously inked black. ??There is an area in the mesorectum that is partially indented to close to the muscularis propria, which coincides with the junction with the skeletal muscle. ??On reapproximation, the mesorectum appears complete, however, the ink is present into the indentation. ??This area is over inked with red for reference. ??The uninvolved colonic mucosa is irizarry-beige. ??The sigmoid colon is sectioned to show scattered diverticula, without evidence of diverticulitis. The proximal rectum shows a 0.3 x 0.2 cm flat polyp that is 19 cm from the distal margin. ??The mesorectum and perianal soft tissue are dissected for regional lymph nodes. ??The sigmoid mesocolon is dissected separately for the distant lymph nodes. ?? Labeled B1 - proximal margin; B2 ??diverticulum; B3 ??polyp; B4 - uninvolved rectal and sigmoid mucosa; B5 - customer support representative shaves of distal margin closest to tumor; B6 to B16 - left half of tumor, submitted from proximal to distal; B17 to B28 - right half of tumor submitted from proximal to distal; B29 - remaining perineal soft tissue margin (orange inked); B30 - one lymph node, bisected; B31 to B32 - candidate hiren- rectal lymph nodes; B33 - putative sigmoid lymph nodes; B34 to B35 - vascular structures in sigmoid mesocolon four putative lymph nodes; B36 to B39 ??additional mesorectal lymph nodes; B40 to B43 ??additional sigmoid mesocolon lymph nodes. ??Jar 3. 10/18/2017 19:44 Thang Belcher M.D., Ph.D. ? CANCER CASE SUMMARY FOR CARCINOMA OF ANUS Procedure: ?Abdominoperineal resection ? Specimen Integrity: ?Intact ? Tumor Site: ?Anal canal ? Tumor Size: ?Greatest dimension: 4 cm ? Histologic Type: ?Squamous cell carcinoma ? Histologic Grade: ?G2: Moderately differentiated ? Tumor Extension: ?Tumor directly invades adjacent structures: Vaginal wall ? Margins: ?All margins are uninvolved by invasive carcinoma and high-grade intraepithelial neoplasia ? Margins examined: proximal, distal, radial ? Treatment Effect: ? Extensive residual cancer with no evident tumor regression (poor or no response, score 3) ? Lymphovascular Invasion: ?Present ? Perineural Invasion: ?Present ? Regional Lymph Nodes: ? Number cannot be determined: No external iliac lymph nodes submitted ? Number of All Other Regional Lymph Nodes Involved: 0 ? Number of External Iliac Lymph Nodes Examined: 0 ? Number of All Other Regional Lymph Nodes Examined: 17 Pathologic Stage Classification (pTNM, AJCC 8th Edition): TNM Descriptors: ?y (posttreatment) Primary Tumor (pT): ?pT4: Tumor of any size invading adjacent organ(s) such as the vagina, urethra, or bladder Regional Lymph Nodes (pN): ?pN0: No regional lymph node metastasis The pathologic stage assigned here should be regarded as provisional, and may change after integration of clinical data not provided with this specimen. CAP VERSION: Anus 4.0.1.0 By this signature, I attest that the above diagnosis is based upon my personal examination of the slides(and/or other material). The performance characteristics of some immunohistochemical stains, fluorescence in-situ hybridization tests and immunophenotyping by flow cytometry cited in this report (if any) were determined by the Surgical Pathology Department at [facility] as part of an ongoing quality systems specialist program and in compliance with federally mandated [...] by the Surgical Pathology Department of [facility]. ??It has not been cleared or approved by the U. S. Food and Drug Administration. IMAGES AND SCANNED DOCUMENTS, IF INCLUDED, ONLY VIEWABLE IN PDF VERSION OF REPORT Tania Cortes MD LAB PATHOLOGY ORDERABLES Fin al Result PATHOLOGY [facility] 3rd Floor [place], [place] [phone] documented in this encounter Visit Diagnoses Diagnosis Anal cancer (CMS/HCC) (HCC)- Primary Malignant neoplasm of anus, unspecified site Anal cancer (CMS/HCC) (HCC) Malignant neoplasm of anus, unspecified site Acute postoperative abdominal pain S/P exploratory laparotomy Other postprocedural status documented in this encounter Admitting Diagnoses Diagnosis Anal cancer (CMS/HCC) (HCC) Malignant neoplasm of anus, unspecified site documented in this encounter Administered Medications Inactive Administered Medications - up to 3 most recent administrations Medication Order MAR Action Action Date Dose Rate Site acetaminophen (TYLENOL) tablet 1,000 mg 1,000 mg, oral, Once, On Tue10/17/17 at 0630, For 1 dose, Pre-Op, Give upon arrival to holding area. , Indications: Pre-Emptive AnalgesiaIndications:Pre-Emptiv e Analgesia Given 10/17/2017 6:33 AM CDT 1,000 mg acetaminophen (TYLENOL) tablet 1,000 mg 1,000 mg, oral, Every 8 hours scheduled, First dose on Tue10/18/17 at 0400, For 3 doses, Administer at 4:00, 12:00, 20:00 post-op day 1., Indications: PainIndications:Pain Given 10/18/2017 12:12 PM CDT 1,000 mg acetaminophen (TYLENOL) tablet 1,000 mg 1,000 mg, oral, Every 8 hours, First dose on Tue10/18/17 at 2100 Given 10/21/2017 7:32 AM CDT 1,000 mg Given 10/20/2017 9:06 PM CDT 1,000 mg Given 10/20/2017 2:26 PM CDT 1,000 mg albuterol HFA (PROVENTIL HFA,VENTOLIN HFA,PROAIR HFA) 90 mcg/actuation inhaler 2 puff 2 puff, inhalation, Every 4 hours PRN, shortness of breath, Starting on Tue10/19/17 at 1130, RN to admin alvimopan (ENTEREG) capsule 12 mg 12 mg, oral, Once, On Tue10/17/17 at 0630, For 1 dose, Pre-Op, Give immediately upon arrival to holding area (do not prescribe if patient is currently receiving chronic opioid treatment). , Indications: Postoperative Ileus, Postoperative ileus prophylaxisIndications:Postoperative Ileus,Postoperative ileus prophylaxis Given 10/17/2017 6:33 AM CDT 12 mg alvimopan (ENTEREG) capsule 12 mg 12 mg, oral, 2 times daily, First dose on Tue10/18/17 at 0900, For 7 days, Discontinue after first postoperative bowel Movement., Indications: Postoperative IleusIndications:Postoperative Ileus Given 10/20/2017 9:06 PM CDT 12 mg Given 10/20/2017 8:18 AM CDT 12 mg Given 10/19/2017 9:42 PM CDT 12 mg amLODIPine (NORVASC) tablet 10 mg 10 mg, oral, Daily, First dose on Tue10/17/17 at 1845, Indications: hypertensionIndications:hypertension Given 10/21/2017 9:05 AM CDT 10 mg Given 10/20/2017 8:18 AM CDT 10 mg Given 10/19/2017 8:34 AM CDT 10 mg aspirin chewable tablet 81 mg 81 mg, oral, Every morning, First dose on Tue10/18/17 at 0900, Indications: prevention of thrombosisIndications:prevention of thrombosis Given 10/21/2017 9: 05 AM CDT 81 mg Given 10/20/2017 8:18 AM CDT 81 mg Given 10/19/2017 8:34 AM CDT 81 mg bacitracin zinc 500 unit/gram ointment packet 1 application 1 application (deactivated), topical, 2 times daily, First dose on Tue10/18/17 at 2100, Cover with ABD, Apply to affected area: other Given 10/21/2017 9:05 AM CDT 1 application (deactivated) Given 10/20/2017 9:06 PM CDT 1 application (deactivat ed) Given 10/20/2017 2:27 PM CDT 1 application (deactivat ed) bacitracin-polymyxin B (POLYSPORIN) 500-10,000 unit/gram ointment tube topical, 2 times daily, First dose on Tue10/18/17 at 0930, Apply bacitracin to incision line around flap. Cover with ABD., Apply to affected area: other, Indications: Minor Bacterial Skin InfectionsIndications:Minor Bacterial Skin Infections Given 10/20/2017 9:07 PM CDT Given 10/19/2017 9:47 PM CDT Given 10/18/2017 9:09 PM CDT budesonide-formoterol (SYMBICORT) 80-4.5 mcg/actuation inhaler 2 puff 2 puff, inhalation, 2 times daily (supervisor correspondence section), First dose on 10/17/17 at 2100, Rinse mouth with water after use to reduce aftertaste and incidence of candidiasis. Do not swallow., Indications: Bronchospasm Prevention with COPDIndications:Bronchospasm Prevention with COPD Given 10/20/2017 8:59 AM CDT 2 puffs Given 10/19/2017 9:45 PM CDT 2 puffs Given 10/17/2017 8:06 PM CDT 2 puffs budesonide-formoterol (SYMBICORT) 80-4.5 mcg/actuation inhaler 2 puff 2 puff, inhalation, 2 times daily, First dose (after last modification) on Laura 10/20/17 at 2100, Rinse mouth with water after use to reduce aftertaste and incidence of candidiasis. Do not swallow., Indications: Bronchospasm Prevention with COPDIndications:Bronchospasm Prevention with COPD Given 10/21/2017 9:10 AM CDT 2 puffs Given 10/20/2017 9:15 PM CDT 2 puffs dextrose 5% and sodium chloride 0.45% with potassium chloride 20 mEq/L premix infusion 125 mL/hr, intravenous, Continuous, Starting on Tue10/17/17 at 1545, For 8 hours, Phase I & Post-op Floor Rate/Dose Verify 10/18/2017 9:51 PM CDT 125 mL/hr 125 mL/hr Rate/Dose Verify 10/18/2017 6:58 PM CDT 125 mL/hr 125 mL/ hr New Bag 10/17/2017 3:48 PM CDT 125 mL/hr 125 mL/hr dextrose 5% and sodium chloride 0.45% with potassium chloride 20 mEq/L premix infusion 80 mL/hr, intravenous, Continuous, Starting on Tue10/17/17 at 2348, For 12 hours, Phase I & Post-op Floor, Saline lock after 1 liters total. New Bag 10/17/2017 11:48 PM CDT 80 mL/hr 80 mL/hr enoxaparin (LOVENOX) syringe 40 mg 40 mg, subcutaneous, Daily (for enoxaparin), First dose on Tue10/17/17 at 2100, Indications: Deep Vein Thrombosis PreventionIndications:De ep Vein Thrombosis Prevention Given 10/20/2017 9:06 PM CDT 40 mg Left Upper Abdomen Given 10/19/2017 9:43 PM CDT 40 mg Le ft Upper Abdomen Given 10/18/2017 9:04 PM CDT 40 mg Le ft Outer Thigh gabapentin (NEURONTIN) capsule 200 mg 200 mg, oral, 2 times daily, First dose on Tue10/18/17 at 0900 Given 10/21/2017 9:05 AM CDT 200 mg Given 10/20/2017 9:06 PM CDT 200 mg Given 10/20/2017 8:17 AM CDT 200 mg gabapentin (NEURONTIN) capsule 300 mg 300 mg, oral, Once, On Tue10/17/17 at 0630, For 1 dose, Pre-Op, Give upon arrival to holding area. , Indications: Pre-Emptive AnalgesiaIndications:Pre -Emptive Analgesia Given 10/17/2017 6:33 AM CDT 300 mg haloperidol (HALDOL) injection 1 mg 1 mg, intravenous, Once as needed, nausea, vomiting, Starting on Tue10/17/17 at 1452, For 1 dose, Phase I, If not relieved by ondansetron within 30 minutes., Indications: Nausea and VomitingIndications:Naus ea and Vomiting Given 10/17/2017 3:25 PM CDT 1 mg heparin 5,000 unit/mL injection 5,000 Units 5,000 Units, subcutaneous, Once, On Tue10/17/17 at 0630, For 1 dose, Pre-Op, Can give immediately after neuraxial block if no complications per anesthesia., Indications: Deep Vein Thrombosis PreventionIndications:De ep Vein Thrombosis Prevention Given 10/17/2017 7:18 AM CDT 5,000 Units Right Lower Abdomen HYDROmorphone (DILAUDID) 20 mg/100 mL (0.2 mg/mL) sodium chloride 0.9% (premix) Continuous dose: None, OPTICAL WORKER dose: 0.2 mg, OPTICAL WORKER lockout: 10 Minutes, 1 hour limit: Other / 1.2 mg, intravenous, Continuous, Starting on Tue10/17/17 at 1900, Until Tue10/19/17 at 0657, 100 mL, Indications: Pain, RoutineIndications:Pain Rate/Dose Verify 10/19/2017 4:48 AM CDT Rate/Dose Verify 10/19/2017 2:13 AM CDT Rate/Dose Verify 10/19/2017 12:06 AM CDT HYDROmorphone (DILAUDID) 20 mg/100 mL (0.2 mg/mL) sodium chloride 0.9% (premix) Continuous dose: None, OPTICAL WORKER dose: 0.2 mg, OPTICAL WORKER lockout: 10 Minutes, 1 hour limit: Other / 1.2 mg, intravenous, Continuous, Starting on Tue10/17/17 at 1545, Until Tue10/19/17 at 0657, 100 mL, Indications: Pain, RoutineIndications:Pain Rate/Dose Verify 10/19/2017 5:48 AM CDT New Syringe/Cartridge 10/17/2017 3:49 PM CDT 20 mg ibuprofen (ADVIL,MOTRIN) tablet 600 mg 600 mg, oral, Every 8 hours scheduled, First dose on Tue10/21/17 at 0800, Indications: PainIndications:Pain Given 10/21/2017 9:07 AM CDT 600 mg ketorolac (TORADOL) injection 15 mg 15 mg, intravenous, Every 8 hours scheduled, First dose on Tue10/18/17 at 0800, For 9 doses, First dose to be given morning after surgery 08:00, 16:00, 24:00, Indications: Postoperative Acute PainIndications:Postoperative Acute Pain Given 10/20/2017 11:08 PM CDT 15 mg Given 10/20/2017 4:19 PM CDT 15 mg Given 10/20/2017 8:19 AM CDT 15 mg Lactated Ringer's (LR) infusion 30 mL/hr, intravenous, Continuous, Starting on Tue10/17/17 at 0630, For 365 days, Pre-Op New Bag 10/17/2017 6:16 AM CDT 30 mL/hr 30 mL/hr lidocaine 2 g/250 mL (8 mg/mL) dextrose 5% (premix) 1.5 mg/kg/hr ? 50.1 kg [place] weight (9.3938 mL/hr, rounded to 9.39 mL/hr), 8 mg/mL, intravenous, Continuous, Starting on Tue10/17/17 at 1915, Until Tue10/21/17 at 0736, Indications: Pain, Call MD for symptoms of toxicity (ringing in ears, metallic taste, somnolence, numb lips)., RoutineIndications:Pain New Bag 10/20/2017 6:26 PM CDT 1.5 mg/kg/hr 9.39 mL /hr Rate/Dose Verify 10/20/2017 1:40 PM CDT 1.5 mg/kg/hr 9.39 mL/hr Rate/Dose Verify 10/20/2017 8:25 AM CDT 1.5 mg/kg/hr 9.39 mL/hr ondansetron (ZOFRAN) injection 4 mg 4 mg, intravenous, Once, On Tue10/17/17 at 0630, For 1 dose, Pre-Op, Indications: Prevention of Post-Operative Nausea and VomitingIndications:Prevent ion of Post-Operative Nausea and Vomiting Given 10/17/2017 6:33 AM CDT 4 mg ondansetron (ZOFRAN) injection 4 mg 4 mg, intravenous, Every 6 hours PRN, nausea, vomiting, Starting on Tue10/17/17 at 1814, Proceed to prochlorperazine if no relief within 30 minutes. , Indications: Nausea and VomitingIndications:Nausea and Vomiting Given 10/18/2017 3:54 AM CDT 4 mg ondansetron (ZOFRAN) injection 4 mg 4 mg, intravenous, Once, On Tue10/18/17 at 0600, For 1 dose Given 10/18/2017 5:37 AM CDT 4 mg ondansetron (ZOFRAN) injection 4 mg 4 mg, intravenous, Every 4 hours PRN, nausea, vomiting, Starting on Tue10/18/17 at 0530, Proceed to prochlorperazine if no relief within 30 minutes. , Indications: Nausea and VomitingIndications:Nausea and Vomiting oxyCODONE (ROXICODONE) tablet 5 mg 5 mg, oral, Every 4 hours PRN, 2nd line for pain, Starting on Tue10/19/17 at 0656, Indications: PainIndications:Pain Given 10/19/2017 11:27 AM CDT 5 mg scopolamine patch 72 hour 1 patch 1 patch, transdermal, Administer over 72 Hours, Once, On Tue10/17/17 at 0630, For 1 dose, Pre-Op, Indications: Prevention of Post-Operative Nausea and VomitingIndications:Prevent ion of Post-Operative Nausea and Vomiting Medication Applied 10/17/2017 6:33 AM CDT 1 patch Behind Left Ear sodium chloride 0.9% flush 0.5-20 mL 0.5-20 mL, intra-catheter, Every 8 hours scheduled, First dose on Tue10/17/17 at 2200, Flush volume based on line type and size. , Indications: FlushingIndications:Flushin g Given 10/20/2017 5:10 AM CDT 10 mL Given 10/20/2017 12:20 AM CDT 10 mL Given 10/19/2017 5:48 AM CDT 10 mL documented in this encounter Discontinued Medications Medication Sig Discontinue Reason Start Date End Da te metroNIDAZOLE (FLAGYL) 500 mg tablet Take one tablet at 1pm, 2pm, and 10pm the day prior to your surgery. Stop Taking at Discharge 09/30/2017 10/21/2017 neomycin (MYCIFRADIN) 500 mg tablet Take two tablets by mouth at 1pm, 2pm, and 10pm the day before surgery Stop Taking at Discharge 09/30/2017 10/21/2017 ondansetron ODT (ZOFRAN-ODT) 8 mg disintegrating tablet Take 1 tablet (8 mg total) by mouth every 8 (eight) hours as needed for nausea or vomiting. Stop Taking at Discharge 09/30/2017 10/21/2017 documented as of this encounter Historical Medications * This list may reflect changes made after this encounter. amLODIPine (NORVASC) 10 mg tabletIndications :hypertension Take 10 mg by mouth daily 09/29/2021 added in this encounter Active and Recently Administered Medications Times are shown in CDT. Scheduled Medication Order 10/19/2017 10/20/2017 10/21/2017 acetaminophen (TYLENOL) tablet 1,000 mg 1,000 mg, oral, Every 8 hours, First dose on Tue10/18/17 at 2100 0547 (Given - Provider: Ignacio Hess RN)1608 (Given - Provider: Jude Ariza, CANDY)2142 (Given - Provider: Jude Ariza, CANDY) 0510 (Given - Provider: Malik Paz RN)1426 (Given - Provider: Leydi Mares RN)2105 (Given - Provider: Adrienne Arreola, RN) 0732 (Given - Provider: Sarah Kuhn, CANDY - Comment: Informed pt med would be available if they changed their mind. )1300 (Due) alvimopan (ENTEREG) capsule 12 mg 12 mg, oral, 2 times daily, First dose on Tue10/18/17 at 0900, For 7 days, Discontinue after first postoperative bowel Movement., Indications: Postoperative Ileus 0834 (Given - Provider: Darline Hess RN)2141 (Given - Provider: Jude Ariza, CANDY) 08 (Given - Provider: Leydi Mares RN)2105 (Given - Provider: Adrienne Arreola, CANDY) 0824 (Not Given - Provider: Sarah Kuhn RN - Reason: Other - Comment: postop stool noted in ostomy) amLODIPine (NORVASC) tablet 10 mg 10 mg, oral, Daily, First dose on Tue10/17/17 at 1845, Indications: hypertension 0834 (Given - Provider: Darline Hess RN) 0818 (Given - Provider: Leydi Mares RN) 0905 (Given - Provider: Sarah Kuhn, CANDY) aspirin chewable tablet 81 mg 81 mg, oral, Every morning, First dose on Tue10/18/17 at 0900, Indications: prevention of thrombosis 0834 (Given - Provider: Darline Hess RN) 0818 (Given - Provider: Leydi Mares RN) 0905 (Given - Provider: Sarah Kuhn, CANDY) bacitracin zinc 500 unit/gram ointment packet 1 application 1 application (deactivated), topical, 2 times daily, First dose on Tue10/18/17 at 2100, Cover with ABD, Apply to affected area: other 0834 (Given - Provider: Darline Hess RN)214 (Given - Provider: Jude Ariza, CANDY) 0818 (Given - Provider: Leydi Mares RN)142 (Given - Provider: Leydi Mares RN)210 (Given - Provider: Adrienne Arreola, CANDY) 0905 (Given - Provider: Sarah Kuhn, CANDY) bacitracin-polymyxin B (POLYSPORIN) 500-10,000 unit/gram ointment tube topical, 2 times daily, First dose on Tue10/18/17 at 0930, Apply bacitracin to incision line around flap. Cover with ABD., Apply to affected area: other, Indications: Minor Bacterial Skin Infections 0900 (Due)2146 (Given - Provider: Jude Ariza RN) 151 (Not Given - Provider: Leydi Mares RN - Reason: Other)2106 (Given - Provider: Adrienne Arreola RN) 112 (Not Given - Provider: Sarah Kuhn RN - Reason: Other - Comment: duplicate order) budesonide-formoterol (SYMBICORT) 80-4.5 mcg/actuation inhaler 2 puff (CANCELED) 2 puff, inhalation, 2 times daily (supervisor correspondence section), First dose on Tue10/17/17 at 2100, Rinse mouth with water after use to reduce aftertaste and incidence of candidiasis. Do not swallow., Indications: Bronchospasm Prevention with COPD 1018 (Not Given - Provider: Dax Murray-RT - Reason: Patient/family refused)2144 (Given - Provider: Jude Ariza RN) 08 (Given - Provider: Kristine Rodriges, RAGINI) budesonide-formoterol (SYMBICORT) 80-4.5 mcg/actuation inhaler 2 puff 2 puff, inhalation, 2 times daily, First dose (after last modification) on Tue10/20/17 at 2100, Rinse mouth with water after use to reduce aftertaste and incidence of candidiasis. Do not swallow., Indications: Bronchospasm Prevention with COPD 2114 (Given - Provider: Adrienne Arreola RN) 09 (Given - Provider: Sarah Kuhn, CANDY) enoxaparin (LOVENOX) syringe 40 mg 40 mg, subcutaneous, Daily (for enoxaparin), First dose on Tue10/17/17 at 2100, Indications: Deep Vein Thrombosis Prevention 2142 (Given - Provider: Jude Ariza RN) 2105 (Given - Provider: Adrienne Arreola RN) gabapentin (NEURONTIN) capsule 200 mg 200 mg, oral, 2 times daily, First dose on Tue10/18/17 at 0900 0834 (Given - Provider: Darline Hess RN)2143 (Given - Provider: Jude Ariza RN) 0817 (Given - Provider: Leydi Mares, CANDY)2106 (Given - Provider: Adrienne Arreola, CANDY) 0905 (Given - Provider: Sarah Kuhn, CANDY) ibuprofen (ADVIL,MOTRIN) tablet 600 mg(Linked Group 1) 600 mg, oral, Every 8 hours scheduled, First dose on Tue10/21/17 at 0800, Indications: Pain 0907 (Given - Provider: Sarah Kuhn, CANDY)1600 (Due) ketorolac (TORADOL) injection 15 mg(Linked Group 1) 15 mg, intravenous, Every 8 hours scheduled, First dose on Tue10/18/17 at 0800, For 9 doses, First dose to be given morning after surgery 08:00, 16:00, 24:00, Indications: Postoperative Acute Pain 0121 (Given - Provider: Ignacio Hess RN)0834 ([facility] - Provider: Darline Hess RN)1600 (Due)2335 (Given - Provider: Jude Ariza RN) 0819 (Given - Provider: Leydi Mares RN)1619 (Given - Provider: Adrienne Arreola, CANDY)2308 (Given - Provider: Adrienne Arreola, CANDY) sodium chloride 0.9% flush 0.5-20 mL 0.5-20 mL, intra-catheter, Every 8 hours scheduled, First dose on Tue10/17/17 at 2200, Flush volume based on line type and size. , Indications: Flushing 0548 (Given - Provider: Ignacio Hess RN)1727 (Not Given - Provider: Jude Ariza RN - Reason: Patient/family refused) 0020 (Given - Provider: Malik Paz, CANDY)0510 (Given - Provider: Malik Paz, CANDY)1400 (Due) 0130 (Not Given - Provider: Clarita Hernandez RN - Reason: Other)0542 (Not Given - Provider: Clarita Hernandez RN - Reason: Other - Comment: IVF running)1400 (Due) Continuous Medication Order 10/19/2017 10/20/2017 10/21/2017 HYDROmorphone (DILAUDID) 20 mg/100 mL (0.2 mg/mL) sodium chloride 0.9% (premix) (CANCELED) Continuous dose: None, OPTICAL WORKER dose: 0.2 mg, OPTICAL WORKER lockout: 10 Minutes, 1 hour limit: Other / 1.2 mg, intravenous, Continuous, Starting on Tue10/17/17 at 1900, Until Tue10/19/17 at 0657, 100 mL, Indications: Pain, Routine 0006 (Rate/Dose Verify - Provider: Ignacio Hess RN)0213 (Rate/Dose Verify - Provider: Ignacio Hess RN)0448 (Rate/Dose Verify - Provider: Ignacio Hess RN) HYDROmorphone (DILAUDID) 20 mg/100 mL (0.2 mg/mL) sodium chloride 0.9% (premix) (CANCELED) Continuous dose: None, OPTICAL WORKER dose: 0.2 mg, OPTICAL WORKER lockout: 10 Minutes, 1 hour limit: Other / 1.2 mg, intravenous, Continuous, Starting on Tue10/17/17 at 1545, Until Tue10/19/17 at 0657, 100 mL, Indications: Pain, Routine 0548 (Rate/Dose Verify - Provider: Ignacio Hess RN)0850 (Stopped (Dual Sign) - Provider: Darline Hess RN) lidocaine 2 g/250 mL (8 mg/mL) dextrose 5% (premix) (CANCELED) 1.5 mg/kg/hr ? 50.1 kg [place] weight (9.3938 mL/hr, rounded to 9.39 mL/hr), 8 mg/mL, intravenous, Continuous, Starting on Tue10/17/17 at 1915, Until Tue10/21/17 at 0736, Indications: Pain, Call MD for symptoms of toxicity (ringing in ears, metallic taste, somnolence, numb lips)., Routine 0549 (Rate/Dose Verify - Provider: Ignacio Hess RN)1433 (New Bag - Provider: Darline Hess RN)1900 (Rate/Dose Verify - Provider: Jude Ariza RN)2000 (Rate/Dose Verify - Provider: Jude Ariza RN)2100 (Rate/Dose Verify - Provider: Jude Ariza RN) 0825 (Rate/Dose Verify - Provider: Leydi Mares, CANDY)1340 (Rate/Dose Verify - Provider: Leydi Mares, CANDY)1826 (New Bag - Provider: Adrienne Arreola RN) PRN Medication Order 10/19/2017 10/20/2017 10/21/2017 albuterol HFA (PROVENTIL HFA,VENTOLIN HFA,PROAIR HFA) 90 mcg/actuation inhaler 2 puff 2 puff, inhalation, Every 4 hours PRN, shortness of breath, Starting on Tue10/19/17 at 1130, RN to admin ondansetron (ZOFRAN) injection 4 mg 4 mg, intravenous, Every 4 hours PRN, nausea, vomiting, Starting on Tue10/18/17 at 0530, Proceed to prochlorperazine if no relief within 30 minutes. , Indications: Nausea and Vomiting oxyCODONE (ROXICODONE) tablet 5 mg 5 mg, oral, Every 4 hours PRN, 2nd line for pain, Starting on Tue10/19/17 at 0656, Indications: Pain 0834 (Return to Cabinet - Provider: Darline Hess RN)1127 (Given - Provider: Darline Hess, CANDY) sodium chloride 0.9% flush 0.5-20 mL 0.5-20 mL, intra-catheter, As needed, line care, Starting on Tue10/17/17 at 1814, Flush volume based on line type and size. Flush before and after each use. , Indications: Flushing Linked Groups Order Group 1: ketorolac (TORADOL) injection 15 mgJump to med 15 mg, intravenous, Every 8 hours scheduled, First dose on Tue10/18/17 at 0800, For 9 doses, First dose to be given morning after surgery 08:00, 16:00, 24:00, Indications: Postoperative Acute Pain Followed by ibuprofen (ADVIL,MOTRIN) tablet 600 mgJump to med 600 mg, oral, Every 8 hours scheduled, First dose on Tue10/21/17 at 0800, Indications: Pain documented in this encounter Orders Medications Ordered That Omari ht Not Have Been Administered Count Last Ordered Date First Ordered Date albuterol HFA (PROVENTIL HFA ,VENTOLIN HFA,PROAIR HFA) 90 mcg/actuation inhaler 2 puff 2 10/19/2017 10/17/2017 ondansetron (ZOFRAN) injection 4 mg 2 10/1810/17/2017 acetaminophen (TYLENOL) tablet 500 mg 1 clindamycin (CLEOCIN) 600 mg , gentamicin (GARAMYCIN) 240 mg in sodium chloride 0.9 % 500 mL irrigation solution 1 10/17/2017 ertapenem (INVANZ) 1000 mg i n 50 mL sodium chloride 0.9% (premix) 1 10/17/2017 fentaNYL (SUBLIMAZE) preserv ative free injection 25 mcg 1 10/17/2017 fentaNYL (SUBLIMAZE) preserv ative free injection 50 mcg 1 10/17/2017 gabapentin (NEURONTIN) capsule 300 mg 1 Lactated Ringer's (LR) infusion 1 8 lidocaine 2 g/250 mL (8 mg/m L) dextrose 5% (premix) 1 10/17/2017 meperidine (DEMEROL) preserv ative free injection 12.5 mg 1 10/17/2017 naloxone (NARCAN) 0.4 mg/mL injection 0.04-0.4 mg 2 10/17/2017 sodium chloride 0.9 % irrigation 1 10/18/19 18 sodium chloride 0.9% flush 0.5-20 mL 4 09/29 thrombin-recombinant 20,000 unit solution 1 10/17/2017 Diet Count Last Ordered Date First Orde red Date ADULT DISCHARGE DIET 1 10/21/2017 Nursing Count Last Ordered Date First Orde red Date DISCHARGE ACTIVITY 3 10/21/2017 DISCHARGE CALL PROVIDER 7 10/21/2017 DISCHARGE DRESSING 3 10/21/2017 FOLLOW UP PRIMARY PHYSICIAN 1 10/21/2017 FOLLOW UP WITH PROVIDER 3 10/21/2017 Consult Count Last Ordered Date First Orde red Date CONSULT TO WOUND CARE 1 10/17/2017 Admission Count Last Ordered Date First Orde red Date ASSIGN PATIENT STATUS 1 10/16/2017 documented in this encounter Care Teams Airflight Attendants Supervisor Relationship Specialty Start Date End Date Heron Ricci DO PCP - General 04/19/16 Ignacio Canela MD Consulting Physician Radiation Oncology 08/12/17 2 documented as of this encounter
--- OUTSIDE RECORDS SUMMARY | 2024-02-28 09:03 | XMS_ITS | Encounter Summary ---
Author Organization [facility] Address [address] [place] [address] Phone Care Team Providers Care Ladle Liner Name Role Phone Heron Ricci DO Primary Care Provider [phone] Ignacio Canela MD Unavailable [phone] Reason for Visit * Reason Comments Return Patient anal cancer * Consultation (Routine) - Closed Specialty Diagnoses / Procedures Referred By Contac t Referred To Contact General Surgery / Colon and Rectal Surgery Diagnoses ABSTRACTED Appt Comment: 6 WEEK CANCER CARE FOLLOW UP Procedures RETURN Ignacio Canela MD [address] [place] [address] Phone: tel: fax: Talon Steele MD [address] [facility] [id number] [place] [address] Phone: tel: fax: Referral ID Status Reason Start Date Expiration Date Visits Re quested Visits Authorized [id number] Closed 08/16/2017 09/22/2017 1 1 Encounter Details Date Type Department Care Team (Late st Contact Info) Description 08/16/2017 11:00 AM CDT Office Visit [facility] [address] [place] [address] Talon Steele MD [address] [facility] [id number] [place] [address] Anal cancer (CMS/HCC) (Primary Dx) Social History Tobacco Use Types Packs/Day Years Used Date Smoking Tobacco: Former Alcohol Use Standard Drinks/Week Comments Yes 0 (1 standard drink = 0.6 oz pur e alcohol) 1.5 pints per week Comments Unknown Sex and Gender Information Value Date Recorded Sex Assigned at Not on file 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 Gender Identity Not on file Sexual Orientation Not on file documented as of this encounter Last Filed Vital Signs Vital Sign Reading Time Taken Comments Blood Pressure 175/98 08/16/2017 10:57 AM CDT Pulse 89 08/16/2017 10:57 AM CDT Temperature 36.7 ??C (98.1 ??F) 08/16/2017 1 0:57 AM CDT Respiratory Rate 16 08/16/2017 10:5 7 AM CDT Oxygen Saturation 94% 08/16/2017 10: 57 AM CDT Inhaled Oxygen Concentration - - Weight 80.2 kg (176 lb 14.4 oz) 018 10:57 AM CDT Height 160 cm (5' 2.99 ) 08/16/2017 10: 57 AM CDT Body Mass Index 31.34 08/16/2017 10:57 AM CDT documented in this encounter Progress Notes * Talon Steele MD - 08/16/2017 11:00 AM CDT [...] plan for examination under anesthesia with biopsy. Talon Steele MD 08/16/2017 11:58 AM documented in this encounter Plan of Treatment Not on file documented as of this encounter Visit Diagnoses Diagnosis Anal cancer (CMS/HCC) (HCC)- Primary Malignant neoplasm of anus, unspecified site documented in this encounter Historical Medications * This list may reflect changes made after this encounter. vitamin E 400 unit capsule Take 1 capsule (400 Units total) by mouth 2 (two) times a week omega 9-rwd-fue-fish oil 300-1,000 mg capsule Take 1 capsule by mouth 2 (two) times a week 05/17/2012 naproxen (ALEVE) 220 mg tablet Take 1 tablet (220 mg total) by mouth every 12 (twelve) hours as needed acetaminophen (TYLENOL) 500 mg tabletIndications :Pain Take 1 tablet (500 mg total) by mouth every 6 (six) hours as needed 01/11/2024 budesonide-formot Humberto (SYMBICORT) 80-4.5 mcg/actuation inhalerIndication s:Bronchospasm Prevention with COPD Inhale 2 puffs 2 (two) times a day as needed 01/11/2024 losartan (COZAAR) 100 mg tabletIndications :hypertension Take 1 tablet (100 mg total) by mouth every morning 11/23/2023 ibandronate (BONIVA) 150 mg tablet 08/25/2017 [id number] 500 mg calcium- 400 unit-15 mcg tablet 05/17/2012 10/07/2017 aspirin 81 mg chewable tabletIndications :prevention of thrombosis Take 1 tablet (81 mg total) by mouth every morning 11/23/2023 added in this encounter Care Teams Ladle Liner Relationship Specialty Start Date End Date Heron Ricci DO PCP - General 04/19/16 Ignacio Canela MD Consulting Physician Radiation Oncology 08/12/17 2 documented as of this encounter
--- OUTSIDE RECORDS SUMMARY | 2024-02-28 09:03 | XMS_ITS | Encounter Summary ---
Author Organization [facility] Address [address] [place] [address] Phone Care Team Providers Care Jewel Bearing Turner Name Role Phone Heron Ricci DO Primary Care Provider [phone] Ignacio Canela MD Unavailable [phone] Reason for Visit * Reason Onset Date Comments Follow-up 09/08/2017 scheduling Encounter Details Date Type Department Care Team (Late st Contact Info) Description 09/08/2017 Telephone [facility] [address] [facility] [address] [place] [address] Jazzmine Hernandez, Nilda Follow-up (scheduling) Social History Tobacco Use Types Packs/Day Years Used Date Smoking Tobacco: Former Smokeless Tobacco: Never Alcohol Use Standard Drinks/Week Comments Yes 5 (1 standard drink = 0.6 oz pur e alcohol) Comments No Sex and Gender Information Value Date Recorded Sex Assigned at Not on file 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 Andersen. PET scan is scheduled for 09/16 @ 6:30am with 6:15am arrival 2nd floor CAM. F/satnam Steele is schedueld for Wednesday 09/20 @ 8:45 [facility]. Left message for Ms. Andersen asking for a return call to schedule her PET scan and follow up appointment. documented in this encounter Plan of Treatment Not on file documented as of this encounter Visit Diagnoses Not on filedocumented in this encounter Care Teams Jewel Bearing Turner Relationship Specialty Start Date End Date Heron Ricci DO PCP - General 04/19/16 Ignacio Canela MD Consulting Physician Radiation Oncology 08/12/17 2 documented as of this encounter
--- OUTSIDE RECORDS SUMMARY | 2024-02-28 09:03 | XMS_ITS | Encounter Summary ---
Author Organization [facility] Healthcare Address [address] [place] [address] Care Team Providers Care Embedded Hardware Engineer Name Role Phone Heron Ricci DO Primary Care Provider [phone] Ignacio Canela MD Unavailable [phone] Encounter Details Date Type Department Care Team (Late st Contact Info) Description 10/17/2017 7:30 AM CDT - 10/17/2017 2:15 PM CDT Surgery [facility] Operating Room [address] [place] [address] Tania Cortes MD [address] [facility] [id number] [place] [address] OPEN RESECTION ABDOMINOPERINEAL Surgery Details Date/Time Status Location OR Service Patient Class Case Class Case Type Trauma Case? 10/17/2017 7:30 AM Posted [facility] OR POD 1 330 Colorectal Surgery Admit Elective Panel 1 Procedure LRB Anes Op Region Wound Class Comments OPEN RESECTION ABDOMINOPERINEAL N/A General Abdomen Class II - Chela n Contaminated Panel 2 Procedure LRB Anes Op Region Wound Class Comments Vertical rectus abdominus flap, closure of perineum, vaginal wall reconstruction, complex abdominal wall closure N/A Choice Leg Lower Class II - Clean C ontaminated Surgeon Surgeon Role Service Panel Clarita Villa MD Primary Plastics 2 Luz Elena Phan MD Resident - Assisting Col orectal 1 Tania Cortes MD Primary Colorectal 1 documented in this encounter Social History Tobacco Use Types Packs/Day Years Used Date Smoking Tobacco: Former Cigarettes 1 45 1 966 - 2010 Smokeless Tobacco: Never Alcohol Use Standard Drinks/Week Comments Yes 5 (1 standard drink = 0.6 oz pur e alcohol) Comments No Sex and Gender Information Value Date Recorded Sex Assigned at Not on file Legal Sex Female 8:43 AM CONTRACTS PARALEGAL Gender Identity Not on file Sexual Orientation Not on file documented as of this encounter Last Filed Vital Signs Vital Sign Reading Time Taken Comments Blood Pressure 111/89 10/17/2017 7:21 AM CDT Pulse 79 10/17/2017 7:21 AM CDT Temperature 37.1 ??C (98.8 ??F) 10/17/2017 7:21 AM CD T Respiratory Rate 20 10/17/2017 7:21 AM CDT Oxygen Saturation 93% 10/17/2017 7:21 AM CDT Inhaled Oxygen Concentration - - Weight - - Height - - Body Mass Index - - documented in this encounter Discharge Summaries * Lavinia Ley MD - 10/21/2017 1:07 PM CDT Inpatient Discharge Summary BRIEF OVERVIEW Admitting Provider: Tania Cortes MD Discharge Provider: Tania Cortes MD Primary Care Physician at Discharge: Heron Ricci DO [phone] Admission Date: 10/17/2017 Discharge Date: 10/21/2017 Admission Location: [facility] Primary Discharge Diagnosis: Anal cancer Secondary Discharge [...] Service Line: Home Health Primary disciplines requested: [facility] Home Health Services: Wound/ Ostomy Care Evaluate [...] heal in 1-2 pouch changes Home Health: [facility] . They will contact you after discharge [...] Commonly known as: COZAAR multivitamin capsule omega 9-fht-uhv-fish oil 300-1,000 mg capsule SYMBICORT 80-4.5 mcg/actuation [...] PCP - General [address] [facility] [address] Next Steps: Follow up Follow-up with providerFollow up with Dr. Cortes in 1 month. Call to set up your appointment. Next Steps: Follow up Instructions: Follow up with Dr. Cortes in 1 month. Call to set up your appointment. Questions: Instructions for follow-up: Follow up with Dr. Cortes in 1 month. Call [phone] to set up yourappointment. Follow-up with providerFollow [...] Evangelina Tobias NP in 2 weeks. Call [phone] to schedule your appointment. Next Steps: Follow up Instructions: Plastic surgery follow up with Evangelina Tobias NP in 2 weeks. Call [phone] to schedule your appointment. Questions: Instructions for follow-up: Plastic surgery follow up with Evangelina Tobias NP in 2 weeks. Call [phone] to schedule your appointment. Follow-up with providerPlastic surgery follow up with Dr. Clarita Villa in 6 weeks. Call [phone] to schedule your appointment. Next Steps: Follow up Instructions: Plastic surgery follow up with Dr. Clarita Villa in 6 weeks. Call [phone] to schedule your appointment. Questions: Instructions for follow-up: Plastic surgery follow up with Dr. Clarita Villa in 6 weeks. Call [phone] to schedule your appointment. Cosigned by Tania [...] after surgery with Dr. Villa. ?? Call [phone] to schedule. * Discharge Instr - Other Orders* Cara Herndon RN - 10/19/2017 12:26 PM CDT [facility]: [facility] . They will contact you after discharge to arrange your first visit. documented in this encounter Medications at Time of Discharge multivitamin capsule Take 1 capsule by mouth 2 (two) times a week naproxen (ALEVE) 220 mg tablet Take 1 tablet (220 mg total) by mouth every 12 (twelve) hours as needed omega 3-jdb-hae-fish oil 300-1,000 mg capsule Take 1 capsule [...] Care Agency Information Home Care Agency Name [facility] Home Care Agency Home Care Agency Contact Spoken to Chelsi accepted referral on 10-18 Home Care Agency Order Faxed to [phone] Discharge Additional Assistance Does the patient need discharge transport arranged? No Discharge to home with [facility] for SN. [facility] contacted and Richa notified of discharge. Final [...] JVD. GI: Soft, appropriately tender, non-distended. Ostomy: [place], stool present. Wound: Dressing clean, dry, intact. [...] tablet 600 mg, 600 mg, oral, Q8H [facility], Luz Elena Phan MD ??? lidocaine 2 g/250 mL (8 mg/mL) dextrose 5% (premix), 1.5 mg/kg/hr ([place]), intravenous, Continuous, Gretchen Rene MD PhD, Last Rate: 9.39 mL/hr at 10/20/171825, 1.5 mg/kg/hr at 10/20/171825 ??? ondansetron (ZOFRAN) injection 4 mg, 4 [...] Colorectal - Plastic Surgery follow up (Call [phone] to schedule): -in 2 weeks with Evangelina Tobias NP -in [address] Villa - Plastic Surgery instructions for home placed in After Visit Summary PRS Contact information: Daytime PRS Recon resident (-): Tejal Garcia [phone] Otherwise: ?? Weekdays 7AM - 5PM please call the Plastic Surgery Consult Pager [phone] to be directed to the correct Plastic Surgery resident. ?? Weeknights 5PM - 7AM, All day on Weekends, All day on Holidays please call the Patent Chemist to find the Critical Care Rn Plastic Surgery resident Tejal Garcia MD 10/21/2017 Cosigned by Clarita Villa MD at 10/22/2017 8:22 AM CDT Associated attestation - Clarita Villa MD - 10/22/2017 8:22 AM CDT I have seen and examined the patient on 10/21/17. I agree with the findings and plan [...] Q8H SANDHYA Infusions: lidocaine cardiac 1.5 mg/kg/hr ([place]) Last Rate: 1.5 mg/kg/hr (10/19/17 2100) PRN: [...] JVD. GI: Soft, appropriately tender, non-distended. Ostomy: [place], no stool/flatus present. Wound: Dressing clean, dry, [...] as tolerated Regular diet with ensure DC danette tom from plastic perspective Lovenox for DVT prophylaxis [...] Luz Elena Phan MD, 10 mg at 10/19/17833 ??? aspirin chewable tablet 81 mg, 81 mg, oral, QAM, Luz Elena Phan MD, 81 mg at 10/19/17833 ??? bacitracin zinc 500 unit/gram ointment packet 1 application, 1 application, topical, BID, StacyA. Burkett, [place], 1 application at 10/19/172145 ??? bacitracin-polymyxin B [...] (8 mg/mL) dextrose 5% (premix), 1.5 mg/kg/hr ([place]), intravenous, Continuous, Gretchen eRne MD PhD, Last Rate: 9.39 mL/hr at 10/19/17 2100, 1.5 mg/kg/hr at 10/19/17 2100 ??? ondansetron (ZOFRAN) injection 4 mg, 4 [...] sitting; OK to ambulate - OK to niki Tom from PRS perspective - bacitracin BID to incisions around flap, cover with ABD - Interdry to groin folds please - DVT ppx & diet per Colorectal - Plastic Surgery follow up (Call [phone] to schedule): -in 2 weeks with Evangelina Tobias NP -in [address] Villa PRS Contact information: Daytime PRS Recon resident (-): Tejal Garcia [phone] Otherwise: ?? Weekdays 7AM - 5PM please call the Plastic Surgery Consult Pager [phone] to be directed to the correct Plastic Surgery resident. ?? Weeknights 5PM - 7AM, All day on Weekends, All day on Holidays please call the Patent Chemist to find the Critical Care Rn Plastic Surgery resident Tejal Garcia MD 10/20/2017 [...] Q8H SANDHYA Infusions: lidocaine cardiac 1.5 mg/kg/hr ([place]) Last Rate: 1.5 mg/kg/hr (10/19/17 0549) PRN: [...] JVD. GI: Soft, appropriately tender, non-distended. Ostomy: [place], no stool/flatus present. Wound: Dressing clean, dry, [...] status post APR with VRAM flap. DC DYE BOX OPERATOR, transition to PO pain med Regular diet [...] Luz Elena Phan MD, 12 mg at 10/19/1734 ??? amLODIPine (NORVASC) tablet 10 mg, 10 mg, oral, Daily, Luz Elena Phan MD, 10 mg at 10/19/1734 ??? aspirin chewable tablet 81 mg, 81 mg, oral, QAM, Luz Elena Phan MD, 81 mg at 10/19/1734 ??? bacitracin zinc 500 unit/gram ointment packet 1 application, 1 application, topical, BID, StacyA. Kwadwo NP, 1 application at 10/19/17833 ??? bacitracin-polymyxin B (POLYSPORIN) 500-10,000 unit/gram ointment [...] Luz Elena Phan MD, 200 mg at 10/19/17 0834 ??? ketorolac (TORADOL) injection 15 mg, 15 mg, intravenous, Q8H SANDHYA, 15 mg at 10/19/17 0121 FOLLOWED BY [START ON 10/21/2017] ibuprofen (ADVIL,MOTRIN) tablet 600 mg, 600 mg, oral, Q8H [facility], Luz Elena Phan MD ??? lidocaine 2 g/250 mL (8 mg/mL) dextrose 5% (premix), 1.5 mg/kg/hr ([place]), intravenous, Continuous, Gretchen Rene MD PhD, Last [...] Daytime PRS Recon resident (-): Tejal Garcia [phone] Otherwise: ?? Week 7AM - 5PM please call the Plastic Surgery Consult Pager [phone] to be directed to the correct Plastic Surgery resident. ?? Weeknights 5PM - 7AM, All day on Weekends, All day on Holidays please call the Patent Chemist to find the Critical Care Rn Plastic Surgery resident Tejal Garcia MD 10/19/2017 [...] CDT 10/18/17 1236 Referral Data Referral Source [employer] Referral Reason Discharge Planning Patient Information Primary Caregiver Self Support System Spouse/Significant Other Support system contact info (name, phone, availablity) spouse, Ty Prior Level of Functioning Durable Medical Equipment None Living Arrangement House (lives with spouse, bedroom on main level) Potential Discharge Needs Discharge Potential home with home health Home Health [facility] Anticipated discharge level of care Return Home Communications Patient choice (Home Health/Hospice) list given to patient/customer loyalty representative? 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 Address and phone verified to face sheet. Patient lives with spouse for support. Patient's sister in law, Nelsy,and brother in law, Harpreet, will also be in town for support after discharge. Plan Includes: Discharge to home with home health. [facility] list given to patient, she would like to look over before making a decision. Will follow PT/OT recommendations. Insurance verified as: [employer] Admit Source: non healthcare PCP: verified as Dr. Ricci Pharmacy: [facility] Based on a comprehensive family assessment, assistance [...] 2348) HYDROmorphone HYDROmorphone lidocaine cardiac 1.5 mg/kg/hr ([place]) Last Rate: 1.5 mg/kg/hr (10/18/17 0718) PRN: [...] JVD. GI: Soft, appropriately tender, non-distended. Ostomy: [place], no stool/flatus present. Wound: Dressing clean, dry, [...] intravenous, Continuous, Last Rate: 125 mL/hr at 10/17/17 1548, 125 mL/hr at 10/17/17 1548 FOLLOWED BY dextrose 5% and sodium chloride 0.45% with potassium chloride 20 mEq/L premix infusion, 80 mL/hr, intravenous, Continuous, Luz Elena Phan MD, Last Rate: 80 mL/hr at 10/17/17 2348, 80 mL/hr at 10/17/172347 ??? enoxaparin (LOVENOX) syringe 40 mg, 40 [...] (8 mg/mL) dextrose 5% (premix), 1.5 mg/kg/hr ([place]), intravenous, Continuous, Gretchen Rene MD PhD, Last [...] Daytime PRS Recon resident (-): Tejal Garcia [phone] Otherwise: ?? Weekdays 7AM - 5PM please call the Plastic Surgery Consult Pager [phone] to be directed to the correct Plastic Surgery resident. ?? Weeknights 5PM - 7AM, All day on Weekends, All day on Holidays please call the Patent Chemist to find the Critical Care Rn Plastic Surgery resident Tejal Garcia MD 10/18/2017 [...] Lying Pulse: [phone] Resp: 13 10 16 20 Temp: 36.6 ??C (97.9 ??F) 36.6 ??C [...] y.o. female who is POD0 from May. PLAN: Q2 flap checks, strict side lying and bedrest overnight with pillows between knees, call PRS deputy coroner investigator if change in exam or questions. Ajit Davila MD 10/17/2017 If you have questions, please check Amion to find the resident responsible for this patient's care.If uncertain, please call: ?? Weekdays 7AM - 5PM please call the Plastic Surgery Consult Pager [phone] to be directed to the correct Plastic Surgery resident. ?? Weeknights 5PM - 7AM, All day on Weekends, All day on Holidays please call the Patent Chemist to find the Critical Care Rn Plastic Surgery resident * Lavinia Ley MD [...] PPx: SCDs, SQ heparin injections Cosigned by Tania Cortes MD at 10/18/2017 9:17 AM CDT documented in this encounter Consult Notes * Sarahi Solis RN - 10/21/2017 9:35 AM CDTAssociated Order(s): CONSULT TO WOUND CARE Following patient for colostomy post-operative education. Pouch is currently intact. I watched empty pouch. He did well. Supplies discussed and ordered for outpatient. Please call wound/ostomy for any questions or concerns. Thank you! Massiel Solis RN, BSN [facility] Wound Ostomy Team [phone] documented in this encounter Nursing Notes * [...] LLQ Stomal Appliance 1 piece;Intact Stoma Assessment [place] compelted stoma model pouch change reviewed handouts, including activity post discharge, reviewed stoma powder/prep, ordering supplies. Education: Education packet reviewed: with patient/spouse Plan of care discussed with: patient Questions answered: Yes Wound/Ostomy will follow patient: yes Any questions or concerns please contact the Wound/Ostomy department at [phone] Daija Espino RN * Sarahi Solis RN [...] concerns please contact the Wound/Ostomy department at [phone] Sarahi Solis RN * Sarahi Solis RN [...] Stoma Location: left upper quadrant Pouch Supplies: yuliana #[id number] Pouch Type: flat Drainage: Excretions: , None Excretion Color: Comments: Education: Education packet reviewed: Plan of care discussed with: Questions answered: Yes Wound/Ostomy will follow patient: yes Any questions or concerns please contact the Wound/Ostomy department at [phone] Sarahi Solis RN * Erendira Hatch RN - 10/17/2017 8:19 PM CDT Admit post op to room 6909 @ 1730. Arousable and appropriate. DYE BOX OPERATOR and Lidocaine gtt for pain. Foleyto gravity. Ice chips prn with no nausea. Perineal flap intact. Warm with sutures intact. Small amtbloody drainage. Pt lying on left side with pillows in between legs. IPCs on. Abdominal binder on. Ostomy intact. PETERSON x2 intact O2 @3L/MORTGAGE LOAN OFFICER ORIGINATOR. See labs, flowsheets. documented in this encounter [...] 5:02 PM CDT Report per DCAM: dc DYE BOX OPERATOR to PO, rachel tom, PT/OT Impression: s/p APR with VRAM flap with colostomy Referrals: open referral with [facility] for SN, agency contacted and updated on ADD, order fax attached to 10-18 referral. When contacting [facility] please use date as well to identify [...] following for discharge planning. ECIN referral to [facility] per patient choice with H&P and OP [...] MD - Resident - Assisting * Tania oCrtes MD - Primary Panel 2: * Clarita [...] with antibiotic solution. I placed a 15 Citizen [place] round Javid plane and then closed the [...] initial dissection of the posterior sheath. Dr. aCrreon was immediately available during my absence. Estimated [...] Tania Cortes MD CO-SURGEON: Clarita Villa FIRST CODING CLERK Tory Phan PREOPERATIVE DIAGNOSIS Persistent squamous cell [...] posteriorly down into the pelvis and a 19-Citizen Of [place] Javid drain was then placed through a [...] then secured to the skin with a Cable clamp. We inspected the left upper quadrant [...] Attending Surgeon: Clarita Villa MD Surgical Team: Meat Manager: Leatha Marina RN Meat Manager Relief: Madeline Farmer RN Scrub Relief: Madeline [...] CBC without differential (10/20/2017 11:53 PM CDT) WBC 9.3 3.8 - 9.9 K/cumm [facility] Hgb 12.1 11.9 - 15.5 g/dL [facility] Hct 36.4 35.6 - 45.5 % [facility] Plt 224 150 - 400 K/cumm [facility] MPV 9.3 9.1 - 12.3 fL [facility] RBC 3.55(L) 3.90 - 5.20 M/cumm [facility] MCV 102.5(H) 81.3 - 96.4 fL [facility] MCH 34.1(H) 27.1 - 33.3 pg [facility] MCHC 33.2 32.3 - 35.7 g/dL [facility] RDW CV 12.2 11.1 - 14.9 % [facility] RDW SD 46.5 35.7 - 48.1 fL [facility] NRBC abs 0.00 0.00 - 0.01 K/cumm [facility] Blood specimen (specimen) 10/20/2017 11:53 PM CDT 10/21/2017 12:19 AM CDT Narrative [facility] - 10/21/2017 1:13 AM CDT us Tania Cortes MD LAB BLOOD ORDERABLES Final R esult [facility] Department [place] [address] * Basic metabolic panel (10/20/2017 11:53 PM CDT) [facility] Sodium 139 135 - 145 mmol/L [facility] Potassium, pl 3.6 3.3 - 4.9 mmol/L [facility] Chloride 103 97 - 110 mmol/L [facility] CO2 27 22 - 32 mmol/L [facility] Anion gap 9 2 - 15 mmol/L [facility] BUN 14 8 - 25 mg/dL [facility] Creatinine 0.70 0.60 - 1.10 mg/dL [facility] Glucose 111 70 - 199 mg/dL [facility] Comment: Interpretive Data Fasting glucose >/= [...] 2017. Calcium 9.0 8.5 - 10.3 mg/dL [facility] Blood specimen (specimen) 10/20/2017 11:53 PM CDT 10/21/2017 12:19 AM CDT Narrative [facility] - 10/21/2017 12:44 AM CDT us Tania Cortes MD LAB BLOOD ORDERABLES Final R esult [facility] Department [place] [address] * (ABNORMAL) CBC without differential (10/20/2017 12:28 AM CDT) WBC 9.2 3.8 - 9.9 K/cumm [facility] Hgb 11.4(L) 11.9 - 15.5 g/dL [facility] Hct 34.4(L) 35.6 - 45.5 % [facility] Plt 184 150 - 400 K/cumm [facility] MPV 9.5 9.1 - 12.3 fL [facility] RBC 3.33(L) 3.90 - 5.20 M/cumm [facility] MCV 103.3(H) 81.3 - 96.4 fL [facility] MCH 34.2(H) 27.1 - 33.3 pg [facility] MCHC 33.1 32.3 - 35.7 g/dL [facility] RDW CV 12.2 11.1 - 14.9 % [facility] RDW SD 46.5 35.7 - 48.1 fL [facility] NRBC abs 0.00 0.00 - 0.01 K/cumm [facility] Blood specimen (specimen) 10/20/2017 12:28 AM CDT 10/20/2017 1:26 AM CDT Narrative [facility] - 10/20/2017 1:38 AM CDT us Tania Cortes MD LAB BLOOD ORDERABLES Final R esult [facility] Department [place] [address] * (ABNORMAL) Basic metabolic panel (10/20/2017 12:28 AM CDT) Sodium 139 135 - 145 mmol/L [facility] Potassium, pl 3.9 3.3 - 4.9 mmol/L [facility] Chloride 102 97 - 110 mmol/L [facility] CO2 29 22 - 32 mmol/L [facility] Anion gap 8 2 - 15 mmol/L [facility] BUN 7(L) 8 - 25 mg/dL [facility] Creatinine 0.55(L) 0.60 - 1.10 mg/dL [facility] Glucose 119 70 - 199 mg/dL [facility] Comment: Interpretive Data Fasting glucose >/= [...] 2017. Calcium 8.9 8.5 - 10.3 mg/dL [facility] Blood specimen (specimen) 10/20/2017 12:28 AM CDT 10/20/2017 1:26 AM CDT Narrative [facility] - 10/20/2017 2:00 AM CDT us Tania Cortes MD LAB BLOOD ORDERABLES Final R esult [facility] Department [place] [address] * US Vein Duplex Lower Extremity Bilateral Complete (10/19/2017 4:39 PM CDT) Anatomical Region Laterality Modality Vascular Bilateral Ultrasound 10/19/2017 4:16 PM CDT Narrative 10/22/2017 3:13 PM CDT [facility] - Department of Vascular Surgery, Vascular Laboratory [address] [place] [address] Lower Extremity Venous Ultrasound Report Patient Name: ROXANA ADNERSEN S : 1950 (67y 6m) Study Date: 10/19/2017 4:16:08 PM Gender: F Tech: Location: [id number] Ref.Provider: TANIA CORTES Height(Cm): BSA: Weight(Kg): Quality: [...] Indications: Pain in right leg. Findings: Performing Membership Director: Clarita Isaacs RVT. Bilateral: Venous Doppler signals [...] performed. Electronically Signed By: Donny Barreto MD [facility] 2017-10-22 15:13:27 CDT CC: CC: Procedure Note Donny Barreto MD - 10/22/2017 [facility] - Department of Vascular Surgery,Vascular Laboratory [address] [place] [address] Lower Extremity Venous Ultrasound Report Patient Name: ROXANA ANDERSEN SPatient ID: [id number] : 1950 (67y 6m)Study Date: 10/19/2017 4:16:08 PM Gender: FAccession #: [id number] Tech: ACLocation: [id number] Ref.Provider: Paz CORTES(Cm): BSA: Weight(Kg): Quality: AdequateOrder Provider: TANIA CORTES Procedures: Vascular Report: Venous Duplex imaging was performed bilaterally in the lower extremities.The common femoral, femoral, popliteal, posterior tibial, peroneal veins wereevaluated for patency, spontaneity and phasicity with Doppler, compression and augmentationmaneuvers. Great saphenous vein proximal at the junction was evaluated with compressionmaneuvers. Indications: Pain in right leg. Findings: Performing Membership Director: Clarita Isaacs RVT. Bilateral: Venous Doppler signals [...] performed. Electronically Signed By: Donny Barreto MD [facility] 2017-10-22 15:13:27 CDT CC: CC: us Tania Cortes MD IM US PROCEDURES Final Resu lt * (ABNORMAL) Differential, auto (10/19/2017 1:15 AM CDT) Neutrophil abs 10.1(H) 1.7 - 6.5 K/cumm [facility] Imm gran abs 0.0 0.0 - 0.1 K/cumm [facility] Lymphocyte abs 1.6 0.8 - 3.3 K/cumm [facility] Monocyte abs 1.2(H) 0.2 - 0.8 K/cumm [facility] Eosinophil abs 0.0 0.0 - 0.5 K/cumm [facility] Basophil abs 0.0 0.0 - 0.1 K/cumm [facility] Neutrophil pct 77.8 % [facility] Comment: Interpretive Data Percent cell count reference ranges are not reported, since discordance with absolute values may lead to misinterpretation of CBC data. Current Interpretive Data was last revised on 2017. Imm gran pct 0.4 % [facility] Comment: Interpretive Data Percent cell count reference ranges are not reported, since discordance with absolute values may lead to misinterpretation of CBC data. Current Interpretive Data was last revised on 2017. Lymphocyte pct 12.0 % [facility] Comment: Interpretive Data Percent cell count reference ranges are not reported, since discordance with absolute values may lead to misinterpretation of CBC data. Current Interpretive Data was last revised on 2017. Monocyte pct 9.4 % [facility] Comment: Interpretive Data Percent cell count reference ranges are not reported, since discordance with absolute values may lead to misinterpretation of CBC data. Current Interpretive Data was last revised on 2017. Eosinophil pct 0.1 % [facility] Comment: Interpretive Data Percent cell count reference ranges are not reported, since discordance with absolute values may lead to misinterpretation of CBC data. Current Interpretive Data was last revised on 2017. Basophil pct 0.3 % [facility] Comment: Interpretive Data Percent cell count reference ranges are not reported, since discordance with absolute values may lead to misinterpretation of CBC data. Current Interpretive Data was last revised on 2017. Blood specimen (specimen) 10/19/2017 1:15 AM CDT 10/19/2017 1:47 AM CDT Narrative [facility] - 10/19/2017 1:57 AM CDT Almaz Burkett MORTGAGE LOAN OFFICER ORIGINATOR LAB BLOOD ORDERABLES Final Res ult [facility] Department [place] [address] * (ABNORMAL) Basic metabolic panel (10/19/2017 1:15 AM CDT) Sodium 132(L) 135 - 145 mmol/L [facility] Potassium, pl 4.9 3.3 - 4.9 mmol/L [facility] Chloride 98 97 - 110 mmol/L [facility] CO2 25 22 - 32 mmol/L [facility] Anion gap 9 2 - 15 mmol/L [facility] BUN 17 8 - 25 mg/dL [facility] Creatinine 0.80 0.60 - 1.10 mg/dL [facility] Glucose 140 70 - 199 mg/dL [facility] Comment: Interpretive Data Fasting glucose >/= [...] 2017. Calcium 8.6 8.5 - 10.3 mg/dL [facility] Blood specimen (specimen) 10/19/2017 1:15 AM CDT 10/19/2017 1:47 AM CDT Narrative [facility] - 10/19/2017 2:13 AM CDT Almaz Burkett MORTGAGE LOAN OFFICER ORIGINATOR LAB BLOOD ORDERABLES Final Res ult [facility] Department [place] [address] * (ABNORMAL) CBC with auto differential (10/19/2017 1:15 AM CDT) WBC 13.0(H) 3.8 - 9.9 K/cumm [facility] Hgb 11.9 11.9 - 15.5 g/dL [facility] Hct 36.2 35.6 - 45.5 % [facility] Plt 172 150 - 400 K/cumm [facility] MPV 9.5 9.1 - 12.3 fL [facility] RBC 3.45(L) 3.90 - 5.20 M/cumm [facility] MCV 104.9(H) 81.3 - 96.4 fL [facility] MCH 34.5(H) 27.1 - 33.3 pg [facility] MCHC 32.9 32.3 - 35.7 g/dL [facility] RDW CV 12.4 11.1 - 14.9 % [facility] RDW SD 48.0 35.7 - 48.1 fL [facility] NRBC abs 0.00 0.00 - 0.01 K/cumm [facility] Blood specimen (specimen) 10/19/2017 1:15 AM CDT 10/19/2017 1:47 AM CDT Narrative [facility] - 10/19/2017 1:57 AM CDT Almaz Burkett MORTGAGE LOAN OFFICER ORIGINATOR LAB BLOOD ORDERABLES Final Res ult [facility] Department [place] [address] * (ABNORMAL) Differential, auto (10/17/2017 10:33 PM CDT) Neutrophil abs 10.8(H) 1.7 - 6.5 K/cumm [facility] Imm gran abs 0.1 0.0 - 0.1 K/cumm [facility] Lymphocyte abs 0.7(L) 0.8 - 3.3 K/cumm [facility] Monocyte abs 1.2(H) 0.2 - 0.8 K/cumm [facility] Eosinophil abs 0.0 0.0 - 0.5 K/cumm [facility] Basophil abs 0.0 0.0 - 0.1 K/cumm [facility] Neutrophil pct 84.9 % [facility] Comment: Interpretive Data Percent cell count reference ranges are not reported, since discordance with absolute values may lead to misinterpretation of CBC data. Current Interpretive Data was last revised on 2017. Imm gran pct 0.5 % [facility] Comment: Interpretive Data Percent cell count reference ranges are not reported, since discordance with absolute values may lead to misinterpretation of CBC data. Current Interpretive Data was last revised on 2017. Lymphocyte pct 5.4 % [facility] Comment: Interpretive Data Percent cell count reference ranges are not reported, since discordance with absolute values may lead to misinterpretation of CBC data. Current Interpretive Data was last revised on 2017. Monocyte pct 9.0 % [facility] Comment: Interpretive Data Percent cell count reference ranges are not reported, since discordance with absolute values may lead to misinterpretation of CBC data. Current Interpretive Data was last revised on 2017. Eosinophil pct 0.0 % [facility] Comment: Interpretive Data Percent cell count reference ranges are not reported, since discordance with absolute values may lead to misinterpretation of CBC data. Current Interpretive Data was last revised on 2017. Basophil pct 0.2 % [facility] Comment: Interpretive Data Percent cell count reference ranges are not reported, since discordance with absolute values may lead to misinterpretation of CBC data. Current Interpretive Data was last revised on 2017. Blood specimen (specimen) 10/17/2017 10:33 PM CDT 10/17/2017 11:31 PM CDT Narrative [facility] - 10/17/2017 11:43 PM CDT Tania Cortes MD LAB BLOOD ORDERABLES Final R esult Performing Organization Address [facility] Co de Phone Number [facility] [place] [address] * Lidocaine level (10/17/2017 10:33 PM CDT) Pathologist [facility] Lidocaine (Xylocaine) 2.7 1.5 - 5.0 mcg/mL [facility] Blood specimen (specimen) 10/17/2017 10:33 PM CDT 10/17/2017 11:30 PM CDT Narrative [facility] - 10/18/2017 12:44 AM CDT Draw 24 hours after infusion started. Tania Cortes MD LAB BLOOD ORDERABLES Final [facility] Performing Organization Address [facility] Co de Phone Number [facility] [place] [address] * (ABNORMAL) Basic metabolic panel (10/17/2017 10:33 PM CDT) [facility] Sodium 134(L) 135 - 145 mmol/L [facility] Potassium, pl 5.2(H) 3.3 - 4.9 mmol/L [facility] Chloride 102 97 - 110 mmol/L [facility] CO2 23 22 - 32 mmol/L [facility] Anion gap 9 2 - 15 mmol/L [facility] BUN 18 8 - 25 mg/dL [facility] Creatinine 0.61 0.60 - 1.10 mg/dL [facility] Glucose 250(H) 70 - 199 mg/dL [facility] Comment: Interpretive Data Fasting glucose >/= [...] 2017. Calcium 8.8 8.5 - 10.3 mg/dL [facility] Blood specimen (specimen) 10/17/2017 10:33 PM CDT 10/17/2017 11:31 PM CDT [facility]ative [facility] - 10/17/2017 11:59 PM CDT us Tania Cortes MD LAB BLOOD ORDERABLES Final R esult [facility] Department [place] [address] * (ABNORMAL) CBC with auto differential (10/17/2017 10:33 PM CDT) WBC 12.7(H) 3.8 - 9.9 K/cumm [facility] Hgb 13.1 11.9 - 15.5 g/dL [facility] Hct 39.3 35.6 - 45.5 % [facility] Plt 201 150 - 400 K/cumm [facility] MPV 9.5 9.1 - 12.3 fL [facility] RBC 3.80(L) 3.90 - 5.20 M/cumm [facility] MCV 103.4(H) 81.3 - 96.4 fL [facility] MCH 34.5(H) 27.1 - 33.3 pg [facility] MCHC 33.3 32.3 - 35.7 g/dL [facility] RDW CV 12.4 11.1 - 14.9 % [facility] RDW SD 47.4 35.7 - 48.1 fL [facility] NRBC abs 0.00 0.00 - 0.01 K/cumm [facility] Blood specimen (specimen) 10/17/2017 10:33 PM CDT 10/17/2017 11:31 PM CDT Narrative [facility] - 10/17/2017 11:43 PM CDT Tania Cortes MD LAB BLOOD ORDERABLES Final R esult [facility] Department [place] [address] * (ABNORMAL) POCT arterial blood gas (10/17/2017 10:39 AM CDT) pH, art POC 7.33(L) 7.35 - 7.45 [facility] pCO2, art POC 40 35 - 45 mmHg [facility] pO2, art POC 102 80 - 105 mmHg [facility] Na POC 136 135 - 145 mmol/L [facility] K POC 4.3 3.3 - 4.9 mmol/L [facility] Ionized Ca, POC 4.81 4.50 - 5.10 mg/dL [facility] Hematocrit POC 41.0 35.6 - 45.5 % [facility] Glucose POC GEM 3000 132 70 - 199 mg/dL [facility] Lactate POC GEM 3000 0.5(L) 0.7 - 2.2 mmol/L [facility] HCO3, art POC 21 20 - 30 mmol/L [facility] Total CO2, art POC 22 21 - 30 mmol/L [facility] BE, art POC -4.5 mmol/L [facility] O2 sat art POC 97 95 - 98 % [facility] Blood specimen (specimen) 10/17/2017 10:39 AM CDT 10/17/2017 10:39 AM CDT Narrative [facility] - 10/17/2017 10:56 AM CDT us Tania Cortes MD LAB POCT ORDERABLES - DEVICE Final Result [facility] Department [place] [address] * Surgical pathology (10/17/2017 12:00 AM CDT) Tissue (Vagina, Biopsy) 10/17/2017 11:42 AM CDT Tissue (Colon, Resection, Tumor) 10/17/2017 11:45 AM CDT Narrative PATHOLOGY [facility] - 10/25/2017 7:50 AM CDT [facility] results best viewed via link to PDF [facility] Judith Castillo Laboratory of Surgical Pathology [facility], [place] [address] SURGICAL PATHOLOGY REPORT FINAL Patient Name: ?? ROXANA ANDERSEN Gender: ??F : ??1950 (Age: 67) Address: ??[facility] [place], [place] ??[address] Hospital #: ??[id number] Taken:10/17/2017 Received:10/17/2017 Reported: 10/25/2017 Patient Type: [facility] ?? Service: Surgery Location: [place] [address] Physician(s): ??Tania Cortes M.D. Diagnosis: A. 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, unspecified site Anal cancer (CMS/HCC) (HCC) Malignant neoplasm of anus, unspecified site Acute postoperative abdominal pain S/P exploratory laparotomy Other postprocedural status Anal cancer (CMS/HCC) (HCC) Malignant neoplasm of [...] Given 10/20/2017 9:15 PM CDT 2 puffs clindamycin (CLEOCIN) 600 mg, gentamicin (GARAMYCIN) 240 mg in sodium chloride 0.9 % 500 mL irrigation solution As needed, Starting on Tue10/17/17 at 0811, Intra-Op Given 10/17/2017 8:11 AM CDT 500 mL Surgical Site enoxaparin (LOVENOX) syringe 40 mg 40 mg, subcutaneous, Daily (for enoxaparin), First dose on Tue10/17/17 at 2100, Indications: Deep Vein Thrombosis PreventionIndications:Deep Vein Thrombosis Prevention Given 10/20/2017 9:06 PM [...] Given 10/20/2017 8:17 AM CDT 200 mg ibuprofen (ADVIL,MOTRIN) tablet 600 mg 600 mg, oral, Every 8 hours scheduled, First dose on Tue10/21/17 at 0800, Indications: PainIndications:Pain Given 10/21/2017 9:07 AM CDT 600 mg ondansetron (ZOFRAN) injection 4 mg 4 [...] Given 10/19/2017 11:27 AM CDT 5 mg sodium chloride 0.9 % irrigation As needed, Starting on Tue10/17/17 at 0811, Intra-Op Given 10/17/2017 8:11 AM CDT 2,000 mL Surgical Site sodium chloride 0.9% flush 0.5-20 mL 0.5-20 mL, intra-catheter, Every 8 hours scheduled, First dose on Tue10/17/17 at 2200, Flush volume based on line type and size. , Indications: FlushingIndications:Flushing Given 10/20/2017 5:10 AM CDT 10 mL Given 10/20/2017 12:20 AM CDT 10 mL Given 10/19/2017 5:48 AM CDT 10 mL thrombin-recombinant 20,000 unit solution As needed, Starting on Tue10/17/17 at 0851, Intra-Op, Indications: Superficial BleedingIndications:Superfici al Bleeding Given 10/17/2017 8:51 AM CDT 20,000 Units Surgical Site documented in this encounter Discontinued [...] Ignacio Hess RN)1608 (Given - Provider: Jude Ariza RN)2142 (Given - Provider: Jude Gucci Ariza, RN) 0510 (Given - Provider: Malik Paz RN)142 (Given - Provider: Leydi Mares, CANDY)2105 (Given - Provider: Adrienne Arreola, RN) 0732 (Given - Provider: Sarah Kuhn, CANDY - Comment: Informed pt med would be available if they changed their mind. )1300 (Due) alvimopan (ENTEREG) capsule 12 mg 12 mg, oral, 2 times daily, First dose on Tue10/18/17 at 0900, For 7 days, Discontinue after first postoperative bowel Movement., Indications: Postoperative Ileus 0834 (Given - Provider: Darline Hess RN)214 (Given - Provider: Jude Ariza, CANDY) 08 (Given - Provider: Leydi Marse RN)2105 (Given - Provider: Adrienne Arreola, CANDY) 0824 (Not Given - Provider: Sarah Kuhn, CANDY - Reason: Other - Comment: postop stool [...] Mares RN)142 (Given - Provider: Leydi Mares RN)2105 (Given - Provider: Adrienne Arreola RN) 09 (Given - Provider: Sarah Kuhn, CANDY) bacitracin-polymyxin B (POLYSPORIN) 500-10,000 unit/gram ointment tube topical, 2 times daily, First dose on Tue10/18/17 at 0930, Apply bacitracin to incision line around flap. Cover with ABD., Apply to affected area: other, Indications: Minor Bacterial Skin Infections 09 (Due)2146 (Given - Provider: Jude Ariza RN) 151 (Not Given - Provider: Leydi Mares RN - Reason: Other)2106 (Given - Provider: Adrienne Arreola RN) 1121 (Not Given - Provider: Sarah Kuhn RN - Reason: Other - Comment: duplicate order) budesonide-formoterol (SYMBICORT) 80-4.5 mcg/actuation inhaler 2 puff (CANCELED) 2 puff, inhalation, 2 times daily (respiratory care assistant), First dose on Tue10/17/17 at 2100, Rinse mouth with water after use to reduce aftertaste and incidence of candidiasis. Do not swallow., Indications: Bronchospasm Prevention with COPD 1018 (Not Given - Provider: Dax Murray-RT - Reason: Patient/family refused)2144 (Given - Provider: Jude Ariza RN) 0859 (Given - Provider: Kristine Rodriges, RAGINI) budesonide-formoterol [...] 2142 (Given - Provider: Jude Ariza RN) 210 (Given - Provider: Adrienne Arreola, CANDY) gabapentin (NEURONTIN) capsule 200 mg 200 mg, oral, 2 times daily, First dose on Tue10/18/17 at 0900 0834 (Given - Provider: Darline Hess RN)2143 (Given - Provider: Jude Ariza RN) 0817 (Given - Provider: Leydi Mares RN)210 (Given - Provider: Adrienne Arreola RN) 0905 (Given - Provider: Sarah Kuhn, [...] - Provider: Ignacio Hess RN)0834 [facility]: Darline Hess RN)1600 (Due)2335 (Given - Provider: Jude Ariza RN) 0819 (Given - Provider: Leydi Mares RN)1619 (Given - Provider: Adrienne Arreola RN)2308 (Given - Provider: Adrienne Arreola RN) sodium chloride 0.9% flush 0.5-20 mL 0.5-20 [...] chloride 0.9% (premix) (CANCELED) Continuous dose: None, DYE BOX OPERATOR dose: 0.2 mg, DYE BOX OPERATOR lockout: 10 Minutes, 1 hour limit: Other / 1.2 mg, intravenous, Continuous, Starting on Tue10/17/17 at 1900, Until Tue10/19/17 at 0657, 100 mL, Indications: Pain, Routine 0006 (Rate/Dose Verify - Provider: Ignacio Hess RN)0213 (Rate/Dose Verify - Provider: Ignacio Hess RN)0448 (Rate/Dose Verify - Provider: Ignacio Hess RN) HYDROmorphone (DILAUDID) 20 mg/100 mL (0.2 mg/mL) sodium chloride 0.9% (premix) (CANCELED) Continuous dose: None, DYE BOX OPERATOR dose: 0.2 mg, DYE BOX OPERATOR lockout: 10 Minutes, 1 hour limit: Other / 1.2 mg, intravenous, Continuous, Starting on Tue10/17/17 at 1545, Until Tue10/19/17 at 0657, 100 mL, Indications: Pain, Routine 0548 (Rate/Dose Verify - Provider: Ignacio Hess RN)0850 (Stopped (Dual Sign) - Provider: Darline Hess RN) lidocaine 2 g/250 mL (8 mg/mL) dextrose 5% (premix) (CANCELED) 1.5 mg/kg/hr ? 50.1 kg [place] weight (9.3938 mL/hr, rounded to 9.39 mL/hr), [...] 0825 (Rate/Dose Verify - Provider: Leydi Mares, RN)1340 (Rate/Dose Verify - Provider: Leydi Mares, RN)1826 (New Bag - Provider: Adrienne Arreola RN) [...] Darline Hess RN)1127 (Given - Provider: Darline Hess RN) sodium chloride 0.9% flush 0.5-20 mL 0.5-20 [...] Count Last Ordered Date First Ordered Date budesonide-formoterol (SYMBI ASHLEY) 80-4.5 mcg/actuation inhaler 2 puff 2 10/20/2017 10/17/2017 albuterol HFA (PROVENTIL HFA ,VENTOLIN HFA,PROAIR HFA) 90 mcg/actuation inhaler 2 puff 2 10/19/2017 10/17/2017 oxyCODONE (ROXICODONE) tablet 5 mg 1 2017 acetaminophen (TYLENOL) tablet 1,000 mg 3 0 10/18/2017 10/17/2017 bacitracin zinc 500 unit/gra m ointment packet 1 application 1 10/18/2017 bacitracin-polymyxin B (POLY SPORIN) 500-10,000 unit/gram ointment tube 1 10/18/2017 ondansetron (ZOFRAN) injection 4 mg 5 10/1810/17/2017 acetaminophen (TYLENOL) tablet 500 mg 1 alvimopan (ENTEREG) capsule 12 mg 2 018 amLODIPine (NORVASC) tablet 10 mg 1 018 aspirin chewable tablet 81 mg 1 10/17/2017 dextrose 5% and sodium chlor dave 0.45% with potassium chloride 20 mEq/L premix infusion 2 10/17/2017 enoxaparin (LOVENOX) syringe 40 mg 1 2017 ertapenem (INVANZ) 1000 mg i n 50 mL sodium chloride 0.9% (premix) 1 10/17/2017 fentaNYL (SUBLIMAZE) preserv ative free injection 25 mcg 1 10/17/2017 fentaNYL (SUBLIMAZE) preserv ative free injection 50 mcg 1 10/17/2017 gabapentin (NEURONTIN) capsule 200 mg 1 gabapentin (NEURONTIN) capsule 300 mg 2 haloperidol (HALDOL) injection 1 mg 1 10/17 heparin 5,000 unit/mL inject ion 5,000 Units 1 10/17/2017 HYDROmorphone (DILAUDID) 20 mg/100 mL (0.2 mg/mL) sodium chloride 0.9% (premix) 2 10/17/2017 ibuprofen (ADVIL,MOTRIN) tablet 600 mg 1 ketorolac (TORADOL) injection 15 mg 1 10/17 Lactated Ringer's (LR) infusion 2 8 lidocaine 2 g/250 mL (8 mg/m L) dextrose 5% (premix) 2 10/17/2017 meperidine (DEMEROL) preserv ative free injection 12.5 mg 1 10/17/2017 naloxone (NARCAN) 0.4 mg/mL injection 0.04-0.4 mg 2 10/17/2017 scopolamine patch 72 hour 1 patch 1 018 sodium chloride 0.9% flush 0.5-20 mL 5 09/29 Diet Count Last Ordered Date First Orde [...] 10/16/2017 documented in this encounter Care Teams Embedded Hardware Engineer Relationship Specialty Start Date End Date Heron Ricci DO PCP - General 04/19/16 Ignacio Canela MD Consulting Physician Radiation Oncology 08/12/17 2 documented as of this encounter
--- OUTSIDE RECORDS SUMMARY | 2024-02-28 09:03 | XMS_ITS | Encounter Summary ---
Author Organization [facility] Address [address] [place] [address] Phone Care Team Providers Care Degreaser Operator Name Role Phone Heron Ricci DO Primary Care Provider [phone] Ignacio Canela MD Unavailable [phone] Reason for Visit * Reason Onset Date Comments Follow-up 09/29/2017 surgery appts. 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 She is scheduled to see Dr. Villa on 10/07. Arranged her other preop appointments to be the same day. CPAP 10/07 @ 0930 CAM [place] 10/07 @ [facility]. documented in this encounter Plan of Treatment Not on file documented as of this encounter Visit Diagnoses Not on filedocumented in this encounter Care Teams Degreaser Operator Relationship Specialty Start Date End Date Heron Ricci DO PCP - General 04/19/16 Ignacio Canela MD Consulting Physician Radiation Oncology 08/12/17 2 documented as of this encounter
--- OUTSIDE RECORDS SUMMARY | 2024-02-28 09:03 | XMS_ITS | Encounter Summary ---
Author Organization [facility] Address [address] [place] [address] Phone Care Team Providers Care Health Inspector Food Name Role Phone Heron Ricci DO Primary Care Provider [phone] Ignacio Canela MD Unavailable [phone] Reason for Visit * Consultation (Routine) - Closed Specialty Diagnoses / Procedures Referred By Emilia berkowitz Referred To Contact Colon and Rectal Surgery Diagnoses Ostomy marking/education Procedures RETURN [facility] [address] [facility] [address]nd [address] [place] [address] Phone: tel: fax: [place] [address] [place] [address] Phone: tel: fax: Referral ID Status Reason Start Date Expiration Date Visits Re quested Visits Authorized [id number] Closed 10/06/2017 02/27/2018 12 12 Encounter Details Date Type Department Care Team (Late st Contact Info) Description 10/07/2017 1:00 PM CDT Office Visit [facility] Surgery [address] 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 Gender Identity Not on file Sexual Orientation Not on file documented as of this encounter Last Filed Vital Signs Vital Sign Reading Time Taken Comments Blood Pressure 166/93 10/07/2017 1:02 PM CDT Pulse 82 10/07/2017 1:02 PM CDT Temperature 36.7 ??C (98.1 ??F) 10/07/2017 1:02 PM CD T Respiratory Rate - - Oxygen Saturation 91% 10/07/2017 1:02 PM CDT Inhaled Oxygen Concentration - - Weight 80.1 kg (176 lb 8 oz) 10/07/2017 1:02 PM CDT Height 157.5 cm (5' 2 ) 10/07/2017 1:02 PM CDT Body Mass Index 32.28 10/07/2017 1:02 PM CDT documented in this encounter Progress Notes * Bonny Aranda NP - 10/07/2017 1:00 PM CDT Introduction to pouching system which includes stoma function and output was provided to the patient using written, verbal and DVD materials. Explanation of surgical procedure Verification of consent Identification of rectus muscle, stoma site identified by sitting, standing, twisting and bending positions. Stoma site within patients visual field. Stoma type colostomy Stoma location LLQ Patient verbalizes understanding of felisa and agrees to maintain felisa with supplies provided. Patient does not have physical limitation that could affect ability to care for ostomy. Patient encouraged to return for additional counseling as needed. No further questions at this time. 30 minutes spent with patient, of which 15 was spent counseling patient on ostomy care, function. documented in this encounter Plan of Treatment Not on file documented as of this encounter Visit Diagnoses Diagnosis Other specified counseling- Primary documented in this encounter Care Teams Health Inspector Food Relationship Specialty Start Date End Date Heron Ricci DO PCP - General 04/19/16 Ignacio Canela MD Consulting Physician Radiation Oncology 08/12/17 2 documented as of this encounter
--- OUTSIDE RECORDS SUMMARY | 2024-02-28 09:03 | XMS_ITS | Encounter Summary ---
Author Organization [facility] Healthcare Address [address] [place] [address] Care Team Providers Care Tool And Die Technician Name Role Phone Heron Ricci DO Primary Care Provider [phone] Ignacio Canela MD Unavailable [phone] Encounter Details Date Type Department Care Team (Late st Contact Info) Description 10/17/2017 7:23 AM CDT Anesthesia Event [facility] [address] [place] [address] Homa Rios MD [address] [place] [address] Lew Whelan MD [address] [place] [address] Anesthesia Record Procedure Summary Procedure Name Responsible Anesthesiologist Anesthesia Start Time Anesthesia Stop Time OPEN RESECTION ABDOMINOPERINEAL (Abdomen) Homa Rios MD 10/17/17 0723 10/17/17 1429 Events Date Time Event Comment 10/17/2017 0719 0723 An Start 0723 An Start Data 0725 In Room 0729 An Induction The patient was reevaluated immediately before moderate or deep sedation use and before anesthesia induction. 0730 An Intubation 0735 Anesthesia Ready 0753 Proc Start 0823 an lyndsey now 1024 Quick Note Medical student leaning on patient's face and ETT, SOFTWARE LICENSING ANALYST informed medical provider to avoid leaning on patient 1052 an lyndsey now Colorectal 1410 Proc Fin 1413 An Extubation 1424 an stop data 1425 Out of Room 1429 Handoff to RN I completed my handoff [...] Patient disposition at the time of handoff: PACU 1429 An Stop 1602 Release from care Meds Name Total fentaNYL 50 mcg propofol 230 mg rocuronium 180 mg phenylephrine 100 mcg/mL 650 mcg HYDROmorphone 2 mg/mL 3 mg ondansetron PF (ZOFRAN) 2 mg/mL injectio n 4 mg glycopyrrolate 0.2 mg ertapenem (INVANZ) 1000 mg in 50 mL sodi um chloride 0.9% (premix) 1,000 mg lidocaine 2 g/250 mL (8 mg/mL) dextrose 5% (premix) 458.42 mg lidocaine (LTA) solution 4 % 4 mL phenylephrine (LEVI-SYNEPHRIN E) 25,000 mcg in sodium chloride 0.9% 250 mL (100 mcg/mL) infusion 8.32 mg famotidine PF 20 mg dexamethasone 4 mg/mL 8 mg sugammadex 300 mg Lactated Ringer's (LR) infusion 2,100 mL albumin human bottle 5 % 1,000 mL * Agents Name O2% N2O O2 Air Sevoflurane Inspired Sevoflurane * Blood No blood administrations on file. Lines, Drains, and Airways Type Details Placement Removal Colostomy Retired 10/17/17; LLQ 10/17/17 0000 by Rose Hyde RN RETIRED Surgical Site 08/26/17; 1002; Rectum; 01/31/24 (Retired LDA, Removed/Completed by [email or web address] with LDA Utility); 1213 (Retired LDA, Removed/Completed by [email or web address] with LDA Utility) 08/26/17 1002 by Alicia Ray RN 01/31/24 1213 by Discharge Provider, Automatic Urethral Catheter Placement Date: 10/17/17; Inserted by: Gwen Bunch MD; Type: Non-latex; Size: 16 Fr.; Balloon Size: 10 mL; Urine Returned: Yes; Removal Date: 10/20/17; Removal Time: 1330 10/17/17 0000 by Leatha Marina RN 10/20/17 1330 by Leydi Mares RN Closed/Suction/Open Drain 10/17/17; 1; Left; LLQ; Bulb; 19 Fr.; 1 10/17/17 0000 by Leatha Marina RN 10/21/17 1357 by Sarah Kuhn RN Closed/Suction/Open Drain 10/17/17; 2; Right; RUQ; Bulb; 15 Fr.; 1 10/17/17 0000 by Leatha Marina RN 10/21/17 1357 by Sarah Kuhn RN Peripheral IV Placement Date: 10/17/17; Location: Antecubital; Removal Date: 10/20/17; Removal Time: 2004; Removal Reason: Removed by patient 10/17/17 0000 by Talon Mcgowan RN 10/20/172004 by Adrienne Arreola RN Peripheral IV Placement Date: 10/17/17; Placement Time: 613; Catheter Size: 18 G; Orientation: Right; Location: Forearm; Site Prep: Chlorhexidine; Technique: Anatomical landmarks; Inserted by: Marianela Fraser; Insertion Attempts: 1; Patient Tolerance: Tolerated well; Removal Date: 10/20/17; Removal Time: 1100 10/17/17 0614 by aMrianela Fraser RN 10/20/17 1100 by Leydi Mares RN Epidural Placement Date: 10/17/17; Placement Time: 06 (created via procedure documentation); Inserted by: not observed; 10/21/17; 1357 10/17/17 0630 by Era Oviedo MD 10/21/17 1357 by Sarah Kuhn RN RETIRED Surgical Site 10/17/17; 0805; Abdomen; 01/31/24 (Retired LDA, Removed/Completed by [facility] with LDA Utility); 1213 (Retired LDA, Removed/Completed by [facility] with LDA Utility) 10/17/17 0805 by Leatha Marina RN 01/31/24 1213 by Discharge Provider, Automatic RETIRED Surgical Site 10/17/17; 0805; Perineum; 01/31/24 (Retired LDA, Removed/Completed by [facility] with LDA Utility); 1213 (Retired LDA, Removed/Completed by [facility] with LDA Utility) 10/17/17 0805 by Leatha Marina RN 01/31/24 1213 by Discharge Provider, Automatic ETT Placement Date: 10/17/17; Placement Time: 08 (created via procedure documentation); Mask Ventilation: 1; Technique: Direct laryngoscopy; Type: ETT - single; Single Lumen Tube Size: 7 mm; Cuffed: Yes; Laryngoscope: Ruthy; Blade Size: 4; Location: Oral; Grade View: Grade I; Insertion Attempts: 1; Placement Verification: Auscultation, Capnometry; Removal Date: 10/17/17; Removal Time: 1413 10/17/17 0824 by Lyndsey Coombs CRNA 10/17/17 141 by Lyndsey Coombs CRNA Arterial Line Placement Date: 10/17/17; Placemnt Time: 825 (created via procedure documentation); Size: 20 G; Orientation: Right; Location: Radial; Removal Date: 10/17/17; Removal Time: 162; Removal Reason: Therapy completed 10/17/17 08 by Lyndsey Coombs CRNA 10/17/17 1627 by Mauro Brewer RN RETIRED Surgical Site 10/17/17; 1347; Le ft; 01/31/24 (Retired LDA, Removed/Completed by [facility] with LDA Utility); 1213 (Retired LDA, Removed/Completed by [facility] with LDA Utility) 10/17/17 1347 by Leatha Marina RN 01/31/24 1213 by Discharge Provider, Automatic documented in this encounter Social History Tobacco Use Types Packs/Day Years Used Date Smoking Tobacco: Former Cigarettes 1 45 1 966 - 2011 Smokeless Tobacco: Never Alcohol Use Standard Drinks/Week Comments Yes 5 (1 standard drink = 0.6 oz pur e alcohol) Comments No Sex and Gender Information Value Date Recorded Sex Assigned at Not on file Legal Sex 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 Gender Identity Not on file Sexual Orientation Not on file documented as of this encounter OR Notes * Anesthesia Postprocedure Evaluation - Homa Rios MD - 10/17/2017 4:01 PM CDT Patient: Roxana Andersen Procedure Summary Date: 10/17/17 Room / Location: [facility] OR POD 1 ROOM 330 / [facility] OR POD 1 Anesthesia Start: 722 Anesthesia Stop: 1428 Procedures: OPEN RESECTION ABDOMINOPERINEAL (N/A Abdomen) Vertical rectus abdominus flap, closure of perineum, vaginal wall reconstruction, complex abdominalwall closure (N/A Leg Lower) Diagnosis: Anal cancer (CMS/HCC) (Anal cancer (CMS/HCC) [C21.0]) Surgeon: Talon Steele MD; Clarita Villa MD Responsible Provider: Homa Rios MD Anesthesia Type: general ASA Status: 3 Anesthesia Type: general Last vitals BP 153/90 (10/17/17 1510) Temp Pulse 80 (10/17/17 1510) Resp 9 (10/17/17 1510) SpO2 95 % (10/17/17 1510) Anesthesia Post Evaluation Patient location during evaluation: PACU Patient participation: complete - patient participated Level of consciousness: fully awake Pain score: 0 Pain management: adequate Airway patency: adequate Evidence of recall: no Anesthetic complications: no Cardiovascular status: acceptable Respiratory status: acceptable and nasal cannula (O2 4 l/m) Hydration status: acceptable Pt is: normothermic Nausea/Vomiting status: none Comments: To floor * Anesthesia Procedure Notes - Era Oviedo MD - 10/17/2017 8:42 AM CDT Associated Order(s): ANESTHESIA EPIDURAL BLOCK Epidural Block Patient location: pre-op holding Start time: 10/17/2017 6:30 AM End time: 10/17/2017 7:05 AM Reason for block: post-op pain management per surgeon request Staff: Supervising Anesthesiologist: JOI VALADEZ Placed by: Resident: ERA OVIEDO Procedure prep: Preprocedure checklist: patient identified, procedure contraindications assessed, procedure consentobtained, surgical consent, IV checked, risks, benefits and alternatives discussed, monitors and equipment checked and timeout performed Patient Position: sitting Procedure performed while patient: awake Monitoring: ECG, oximetry and blood pressure Supplemental oxygen: nasal cannula Prep solution: chlorhexadine/alcohol PPE: provider hat/mask, sterile gloves and sterile drape Skin infiltrated with lidocaine 1%: yes Epidural: Approach: right paramedian Imaging guidance used: no Location: T9-10 Number of attempts:greater than 3 attempts Epidural needle: Injection technique: LLOYD saline Needle type: Tuohy Needle gauge: 18 G Needle length: 9 cm Catheter: Aspiration of CSF: yes Assessment: Sensory level - left: full eval pending Sensory level - right: full eval pending Events: wet tap Additional comments: Four attempts in total initially at T9-T10 and T10-T11 without success. The third attempt was complicated by aspiration of CSF, at that time the tuohy was removed and we reattempted at a different site without success. Of note she did have a vasovagal response that required glycopyrrolate and phenylephrine. She did not have a headache but we will reassess her tomorrow morning. She was HD stable and doing well when she was laid supine. We will plan on doing lidocaine infusion intraop and postop for pain control. Cosigned by Joi Valadez MD at 10/17/2017 11:17 AM CDT Associated attestation - Joi Valadez MD - 10/17/2017 11:17 AM CDT I was present and participated for the entire procedure Joi Valadez MD * Anesthesia Procedure Notes - Lyndsey Coombs CRNA - 10/17/2017 8:25 AM CDTAssociated Order(s): ANESTHESIA ARTERIAL LINE PLACEMENT Arterial Line Patient location: OR Staff: Placed by: Anesthesiologist: HOMA RIOS Procedure prep: Prep solution: chlorhexadine/alcohol Arterial line: Catheter size: 20 gauge Catheter type: angiocath Laterality: right Site: radial artery Results: good waveform and good blood return Number of attempts: greater than 3 attempts Additional comments: Ultrasounds right radial, superficial, calcified * Anesthesia Procedure Notes - Lyndsey Coombs CRNA - 10/17/2017 8:24 AM CDTAssociated Order(s): PERIPHERAL LINE Peripheral IV Catheter Patient location: OR Staff: Placed by: LEEROY: LYNDSEY COOMBS Preprocedure prep: Prep solution: alcohol PPE: gloves PIV line: Laterality: left Site: wrist Catheter size: 18 g Procedure details: good blood return Number of attempts: 1 * Anesthesia Procedure Notes - Lyndsey Coombs CRNA - 10/17/2017 8:24 AM CDTAssociated Order(s): ANESTHESIA INTUBATION Airway Patient location: OR Urgency: elective Indications for airway management: anesthesia Difficult airway: no Staff: Placed by: LEEROY: LYNDSEY COOMBS Emergent airway documentation: Risks and benefits discussed: yes Consent obtained: yes Consent given by: patient Airway prep: Preoxygenated: yes Patient position: reverse Trendelenburg Mask difficulty assessment: 1 - vent by mask Spontaneous ventilation during airway: absent Sedation level during airway: GA Final airway details: Final airway type: endotracheal airway Tube type: ETT ETT size: 7.0 mm Cuffed: yes Technique used for successful ETT placement: direct laryngoscopy Insertion site: oral Blade type: Ruthy Blade size: 4 Cormack-Lehane (direct): grade I - full view of glottis Cuff volume: 6 mL Cuff inflated with: air ETT to gums: 21 cm Placement verified by: auscultation and CO2 detection Airway secured with: silk tape Number of attempts: 1 * Anesthesia Preprocedure Evaluation - Homa Rios MD - 10/07/2017 9:32 AM CDT [facility] Planning Preoperative Evaluation Record CPAP Clinic at [facility] ([facility]) Anesthesia Evaluation Roxana Andersen is a 67 y.o. female Procedure(s): OPEN RESECTION ABDOMINOPERINEAL (4 HRS) Vertical rectus abdominus flap, closure of perineum HISTORY HPI Roxana Andersen is a 67 y.o. female who is being evaluated prior to undergoing Open Resection Abdominoperineal, Vertical rectus abdominus flap, closure of perineum for Anal cancer . Past Medical History Information obtained from: patient and chart. Neurological Pertinent negatives: seizures neuromuscular disease CVA/stroke Comments: Hx of cerebral aneurysm s/p coiling in 2005 Cardiovascular + Hypertension Pertinent negatives: DVT/PE Respiratory + COPD Dyspnea frequency: >2 days/week but not daily. Rescue inhaler use: never. Hospitalizations/ER in the last year: 0. Pertinent negatives: asthma sleep apnea (CONG) no O2 use outside the hospital no history of oral steriod use no prior intubation for respiratory failure non-smoker Hepatic / Heme Pertinent negatives: liver disease history of anemia Gastrointestinal Pertinent negatives: GERD hiatal hernia Renal / Pertinent negatives: renal disease Musculoskeletal/Pain + Osteoarthritis Pertinent negatives: headaches Endocrine / Other + Obesity (BMI >30) + Cancer history- current cancer, s/p chemo and s/p radiation. Cancer type: squamous cell carcinomaof anus. Pertinent negatives: diabetes mellitus Functional Capacity Functional capacity: <4 METs Day of Surgery assessments + Possibility of assessed - ruled out by patient's provided history. Review of Systems + SOB (SOB with exertion) + wheezing + pedal edema + melena/hematochezia + bleeding problems + dentures/partials + diarrhea Pertinent negatives: fever; chest pain; palpitations; hard of hearing; heartburn; nausea; chipped/loose teeth; abdominalpain PAT Summary and Plans Cardiac risk classification of planned procedure: intermediate cardiac risk. Anesthesia plan discussed: general anesthesia. Additional risks discussed: postop admission. Recommendations for patient: follow-up appointment with physician and blood pressure check. Disposition: recommend postoperative admission. Preoperative assessment status: lab tests ordered. Initial preoperative evaluation discussed with: JACY GOMEZ Additional comments: Roxana Andersen is a 67 y.o. female who is being evaluated prior to undergoing an intermediate cardiac risk surgery. Revised Cardiac Risk Index factors are (history of cerebrovascular disease) for a total RCRI of 1 out of 6. Functional capacity is <4 METs. Obstructive sleep apnea (CONG) screening status is STOP-Bang=3 suggesting moderate risk for CONG. Blood bank needs for day of procedure: Type and Screen only. Pending labs/tests include: CBC, BMP and T&S. Counseled patient to measure BP on a daily basis, compliance with medications, reduced salt intake,avoid alcohol, and schedule appointment with PCP for optimization of BP management. The patient is on aspirin therapy for primary prevention. The patient???s perioperative cardiovascular risk is deemed low or is outweighed by bleeding risk. If the surgeon is in agreement with this risk assessment, we would support stopping aspirin prior to the procedure. Discussed with [facility] in surgeon's office. Please call the CPAP attending ([phone]) with any questions. Preoperative evaluation performed by Anny Bateman MD on 10/07/17 at 9:33 AM.. Follow up note Labs reviewed and are without significant findings. Will call PCP on 10/10/17 to discuss BP optimization prior to surgery. Follow-up completed by: Anny Bateman MD on 10/07/17 at 6:32 PM Follow up note Patient saw PCP this week for BP optimization prior to surgery. CPAP process complete. Follow-up completed by: Anny Bateman MD on 10/14/17 at 7:21 PM Patient Active Problem List Diagnosis ??? Anal cancer (CMS/HCC) ??? Diaphragmatic paralysis ??? History of rectal cancer ??? Shortness of breath Past Medical History: Diagnosis Date ??? Anal [...] No data available Allergies Allergen Reactions ??? Sulfa (Sulfonamide Antibiotics) Anaphylaxis ??? Codeine Nausea only Reaction: NAUSEA, HOME MEDICATIONS : aspirin 81 mg chewable tablet budesonide-formoterol (SYMBICORT) 80-4.5 mcg/actuation inhaler hydroCHLOROthiazide (HYDRODIURIL) 25 mg tablet losartan (COZAAR) 100 mg tablet multivitamin capsule VENTOLIN HFA 90 mcg/actuation inhaler acetaminophen (TYLENOL EXTRA STRENGTH) 500 mg tablet metroNIDAZOLE (FLAGYL) 500 mg tablet naproxen (ALEVE) 220 mg tablet neomycin (MYCIFRADIN) 500 mg tablet omega 9-aow-pgk-fish oil 300-1,000 mg capsule ondansetron ODT (ZOFRAN-ODT) 8 mg disintegrating tablet vitamin E 400 unit capsule [id number] 500 mg calcium- 400 unit-15 mcg tablet Current Outpatient Prescriptions: ??? aspirin 81 mg chewable tablet ??? budesonide-formoterol (SYMBICORT) 80-4.5 mcg/actuation inhaler ??? hydroCHLOROthiazide (HYDRODIURIL) 25 mg tablet ??? losartan (COZAAR) 100 mg tablet ??? multivitamin capsule ??? VENTOLIN HFA 90 mcg/actuation inhaler ??? acetaminophen (TYLENOL EXTRA STRENGTH) 500 mg tablet ??? metroNIDAZOLE (FLAGYL) 500 mg tablet ??? naproxen (ALEVE) 220 mg tablet ??? neomycin (MYCIFRADIN) 500 mg tablet ??? omega 2-ktv-vsu-fish oil 300-1,000 mg capsule ??? ondansetron ODT (ZOFRAN-ODT) 8 mg disintegrating tablet ??? vitamin E 400 unit capsule Social History Smoking Status ??? Former Smoker ??? Packs/day: 1.00 ??? Types: Cigarettes ??? Start date: 1965 ??? Quit date: 2010 Smokeless Tobacco ??? Never Used Alcohol Use [...] bladder cancer - (Added by TW Conv) PAT Physical Exam Airway Exam: Mallampati: III Cervical ROM: FROM TM distance: >4 Jaw ROM: full Cardiovascular Exam: Rate: regular Rhythm: regular Negative for Murmur No extra heart sounds appreciated Negative for peripheral edema Negative for weak pulses Pulmonary Exam: Wheezing, bilat (Expiratory wheeze bilateral ) EENT Exam: trachea midline Dental Exam: Upper dentures and lower dentures Skin Exam: Skin is warm. Current state: Patient's current state is cooperative and interactive. Vitals: 10/07/17 0950 10/07/17 0951 BP: (!) 161/109 (!) 174/107 Pulse: 79 Resp: 18 Relevant diagnostics: ECG(s): N/A Echocardiogram(s): Transthoracic Echo (TTE) Complete W Doppler/CF WO Contrast 04/23/16 Normal LV size, thickness, with low normal function. Normal RV size and systolic function. Paradoxic septal motion. Normal atria. Mild MR, TR. Estimate PASP 25 mmHg (assuming RA pressure 5 mmHg). Normal IVC, aorta. Stress test(s): N/A Cardiac catheterization(s): N/A PFT(s): N/A Vascular studies: N/A Other: CT Abdomen Pelvis 04/04/17 IMPRESSION: 1. Stable circumferential thickening of the anus in keeping with the known treated squamous cell carcinoma. 2. No evidence of metastatic disease throughout the abdomen and pelvis. 3. Stable hemorrhagic right adnexal cyst. Surgical Pathology 08/26/17 Diagnosis: A.. ??Anorectum, transperineal biopsy ? - Connective tissue with fibrosis - No evidence of malignancy B. ??Anus, anal canal, biopsy ? - Invasive squamous cell carcinoma, see comment PET/CT FDG Skull to Thigh 09/16/17 IMPRESSION: 1. Increased extent of FDG avid anal mass compatible with disease progression. The mass approximates the adjacent vagina and fistulous communication cannot be ruled out, especially given history of radiation and ulceration. Consider dedicated MRI to further evaluate. 2. No evidence of FDG avid metastasis. ?? PT: No results found for requested labs [...] for requested labs within last 720 hours. STOP-Bang Total Score: 3 Lena index score: 100 AD8 Dementia Score: 0 Short Blessed Total Score: 0 DOS Physical Exam Medical history, medications, and allergies reviewed. Attestation: This PAT evaluation 10/07/2017. Airway Exam: Mallampati: II Cervical ROM: FROM Cardiovascular Exam: Rate: regular Rhythm: regular Pulmonary Exam: LCTA, bilat EENT Exam: trachea midline Dental Exam: Appears intact Current state: Patient's current state is cooperative and interactive. Anesthesia Plan ASA 3 My patient is approved for the Anesthesia Controlled Medication protocol when under care of a SOFTWARE LICENSING ANALYST Planned anesthesia: General Team communication plan: oral ET tube Invasive Monitors Planned: Invasive monitors planned: arterial line. Induction: Induction: intravenous. Postoperative Plan: No plan for postoperative opioid use. No postoperative mechanical ventilation intended. Patient's planned disposition post procedure is Floor. Informed Consent: Discussed plan with SOFTWARE LICENSING ANALYST. Anesthesia plan and risks discussed with patient and spouse. Consent and Attending signature: I and/or my [...] Procedure Name Priority Date/Time Associated Diagnosis Comments AL AN PROCEDURE PLACEHOLDER Routine 10/17/2017 8:42 AM CDT AL AN PROCEDURE PLACEHOLDER Routine 10/17/2017 8:25 AM CDT Procedure Note - Lyndsey Coombs CRNA - 10/17/2017 8:25 AM CDTThis note is in progress. Arterial Line Patient location: OR Staff: Placed by: Anesthesiologist: HOMA RIOS Procedure prep: Prep solution: chlorhexadine/alcohol Arterial line: Catheter size: 20 gauge Catheter type: angiocath Laterality: right Site: radial artery Results: good waveform and good blood return Number of attempts: greater than 3 attempts Additional comments: Ultrasounds right radial, superficial, calcified AL AN PROCEDURE PLACEHOLDER Routine 10/17/2017 8:24 AM CDT Procedure Note - Lyndsey Coombs CRNA - 10/17/2017 8:24 AM CDTThis note is in progress. Peripheral IV Catheter Patient location: OR Staff: Placed by: SOFTWARE LICENSING ANALYST: LYNDSEY COOMBS Preprocedure prep: Prep solution: alcohol PPE: gloves PIV line: Laterality: left Site: wrist Catheter size: 18 g Procedure details: good blood return Number of attempts: 1 AL AN PROCEDURE PLACEHOLDER Routine 10/17/2017 8:24 AM CDT Procedure Note - Lyndsey Coombs CRNA - 10/17/2017 8:24 AM CDTThis note is in progress. Airway Patient location: OR Urgency: elective Indications for airway management: anesthesia Difficult airway: no Staff: Placed by: SOFTWARE LICENSING ANALYST: LYNDSEY COOMBS Emergent airway documentation: Risks and benefits discussed: yes Consent obtained: yes Consent given by: patient Airway prep: Preoxygenated: yes Patient position: reverse Trendelenburg Mask difficulty assessment: 1 - vent by mask Spontaneous ventilation during airway: absent Sedation level during airway: GA Final airway details: Final airway type: endotracheal airway Tube type: ETT ETT size: 7.0 mm Cuffed: yes Technique used for successful ETT placement: direct laryngoscopy Insertion site: oral Blade type: Ruthy Blade size: 4 Cormack-Lehane (direct): grade I - full view of glottis Cuff volume: 6 mL Cuff inflated with: air ETT to gums: 21 cm Placement verified by: auscultation and CO2 detection Airway secured with: silk tape Number of attempts: 1 AL AN ELECTIVE ENDOTRACHEAL AIRWAY Routine 10/17/2017 8:24 AM CDT Procedure Note - Lyndsey Coombs CRNA - 10/17/2017 8:24 AM CDTThis note is in progress. Airway Patient location: OR Urgency: elective Indications for airway management: anesthesia Difficult airway: no Staff: Placed by: LEEROY: LYNDSEY COOMBS Emergent airway documentation: Risks and benefits discussed: yes Consent obtained: yes Consent given by: patient Airway prep: Preoxygenated: yes Patient position: reverse Trendelenburg Mask difficulty assessment: 1 - vent by mask Spontaneous ventilation during airway: absent Sedation level during airway: GA Final airway details: Final airway type: endotracheal airway Tube type: ETT ETT size: 7.0 mm Cuffed: yes Technique used for successful ETT placement: direct laryngoscopy Insertion site: oral Blade type: Ruthy Blade size: 4 Cormack-Lehane (direct): grade I - full view of glottis Cuff volume: 6 mL Cuff inflated with: air ETT to gums: 21 cm Placement verified by: auscultation and CO2 detection Airway secured with: silk tape Number of attempts: 1 documented in this encounter Results * AL AN PROCEDURE PLACEHOLDER (10/17/2017 8:42 AM CDT) Narrative Joi Valadez MD - 10/17/2017 8:42 AM CDT Era Oviedo MD ? 10/17/2017 ??8:47 AM Epidural Block Patient location: pre-op holding Start time: 10/17/2017 6:30 AM End time: 10/17/2017 7:05 AM Reason for block: post-op pain management per surgeon request Staff: Supervising Anesthesiologist: JOI VALADEZ Placed by: Resident: ERA OVIEDO Procedure prep: Preprocedure checklist: patient identified, procedure contraindications assessed, procedure consent obtained, surgical consent, IV checked, risks, benefits and alternatives discussed, monitors and equipment checked and timeout performed Patient Position: sitting Procedure performed while patient: awake Monitoring: ECG, oximetry and blood pressure Supplemental oxygen: nasal cannula Prep solution: chlorhexadine/alcohol PPE: provider hat/mask, sterile gloves and sterile drape Skin infiltrated with lidocaine 1%: yes Epidural: Approach: right paramedian Imaging guidance used: no Location: T9-10 Number of attempts:greater than 3 attempts Epidural needle: Injection technique: LLOYD saline Needle type: Tuohy Needle gauge: 18 G Needle length: 9 cm Catheter: Aspiration of CSF: yes Assessment: Sensory level - left: full eval pending Sensory level - right: full eval pending Events: wet tap Additional comments: Four attempts in total initially at T9-T10 and T10-T11 without success. ??The third attempt was complicated by aspiration of CSF, at that time the tuohy was removed and we reattempted at a different site without success. ??Of note she did have a vasovagal response that required glycopyrrolate and phenylephrine. ??She did not have a headache but we will reassess her tomorrow morning. ??She was HD stable and doing well when she was laid supine. ??We will plan on doing lidocaine infusion intraop and postop for pain control. us Homa Rios MD ANESTHESIA ORDERABLES Final Result documented in this encounter Visit Diagnoses Not on filedocumented in this encounter Administered Medications Inactive Administered Medications - up to 3 most recent administrations Medication Order MAR Action Action Date Dose Rate Site albumin 5 % bottle intravenous, Continuous PRN, Starting on Tue10/17/17 at 0805, Anesthesia Intra-op New Bag 10/17/2017 10:23 AM CDT New Bag 10/17/2017 9:41 AM CDT New Bag 10/17/2017 9:00 AM CDT dexamethasone (DECADRON) injection Administer over 1 Minutes, As needed, Starting on Tue10/17/17 at 0730, Anesthesia Intra-op Given 10/17/2017 7:30 AM CDT 8 mg ertapenem (INVANZ) 1000 mg in 50 mL sodium chloride 0.9% (premix) 1,000 mg, intravenous, at 100 mL/hr, Administer over 30 Minutes, Once, On Tue10/17/17 at 0630, For 1 dose, Pre-Op, Give within 60 minutes of incision. Do not mix with dextrose or other medications, Indications: Prophylaxis, SurgicalIndications:Prophylaxis, Surgical Given 10/17/2017 7:30 AM CDT 1,000 mg famotidine (PEPCID) injection Administer over 2 Minutes, As needed, heartburn, Starting on Tue10/17/17 at 0730, Anesthesia Intra-op Given 10/17/2017 7:30 AM CDT 20 mg fentaNYL (SUBLIMAZE) preservative free injection intravenous, As needed, Starting on Tue10/17/17 at 0655, Anesthesia Intra-op Given 10/17/2017 6:55 AM CDT 50 mcg glycopyrrolate (ROBINUL) injection intravenous, As needed, Starting on Tue10/17/17 at 0652, Anesthesia Intra-op Given 10/17/2017 6:52 AM CDT 0.2 mg HYDROmorphone (DILAUDID) injection intravenous, As needed, Starting on 8/20/18 at 0723, Anesthesia Intra-op Given 10/17/2017 12:40 PM CDT 0.5 mg Given 10/17/2017 11:53 AM CDT 0.5 mg Given 10/17/2017 8:42 AM CDT 1 mg Lactated Ringer's (LR) infusion 30 mL/hr, intravenous, Continuous, Starting on Tue10/17/17 at 0630, Pre-Op New Bag 10/17/2017 1:30 PM CDT New Bag 10/17/2017 11:19 AM CDT New Bag 10/17/2017 7:23 AM CDT lidocaine (LTA) 4 % laryngotracheal solution As needed, Starting on Tue10/17/17 at 0729, Anesthesia Intra-op Given 10/17/2017 7:29 AM CDT 4 mL lidocaine 2 g/250 mL (8 mg/mL) dextrose 5% (premix) 1.5 mg/kg/hr ? 50.1 kg [place] weight (9.3938 mL/hr, rounded to 9.39 mL/hr), 8 mg/mL, intravenous, Continuous, Starting on Tue10/17/17 at 0845, Until Tue10/17/17 at 1814, Indications: Pain, Call MD for symptoms of toxicity (ringing in ears, metallic taste, somnolence, numb lips)., RoutineIndications:Pain New Bag 10/17/2017 8:23 AM CDT 1.5 mg/kg/hr 9.39 mL/hr ondansetron (ZOFRAN) injection intravenous, As needed, nausea, vomiting, Starting on Tue10/17/17 at 1320, Anesthesia Intra-op Given 10/17/2017 1:21 PM CDT 4 mg phenylephrine (LEVI-SYNEPHRINE) 0.5 mg/5 mL (100 mcg/mL) premix syringe in 0.9% sodium chloride intravenous, As needed, Starting on Tue10/17/17 at 0657, Anesthesia Intra-op Given 10/17/2017 12:14 PM CDT 100 mcg Given 10/17/2017 12:09 PM CDT 200 mcg Given 10/17/2017 11:41 AM CDT 50 mcg phenylephrine (LEVI-SYNEPHRINE) 25,000 mcg in sodium chloride 0.9% 250 mL (100 mcg/mL) infusion Continuous PRN, Starting on 8/20/18 at 0732, Anesthesia Intra-op Rate/Dose Change 10/17/2017 12:42 PM CDT 0.4 mcg/kg/min 19.22 mL/hr Rate/Dose Change 10/17/2017 12:36 PM CDT 0.2 mcg/kg/min 9. 61 mL/hr Rate/Dose Change 10/17/2017 12:33 PM CDT 0.5 mcg/kg/min 24 mL/hr propofol (DIPRIVAN) IV intravenous, As needed, Starting on Tue10/17/17 at 0729, Anesthesia Intra-op Given 10/17/2017 1:58 PM CDT 10 mg Given 10/17/2017 1:56 PM CDT 20 mg Given 10/17/2017 7:29 AM CDT 200 mg rocuronium (ZEMURON) injection intravenous, As needed, Starting on Tue10/17/17 at 0729, Anesthesia Intra-op Given 10/17/2017 12:36 PM CDT 40 mg Given 10/17/2017 10:52 AM CDT 40 mg Given 10/17/2017 7:29 AM CDT 100 mg sugammadex (BRIDION) 100 mg/mL intravenous solution As needed, Starting on Tue10/17/17 at 1340, Anesthesia Intra-op Given 10/17/2017 1:48 PM CDT 100 mg Given 10/17/2017 1:40 PM CDT 200 mg documented in this encounter Orders Procedures Count Last Ordered Date First Orde red Date ANESTHESIA ARTERIAL LINE PLACEMENT 1 2017 ANESTHESIA INTUBATION 1 10/17/2017 PERIPHERAL LINE 1 10/17/2017 documented in this encounter Care Teams Tool And Die Technician Relationship Specialty Start Date End Date Heron Ricci DO PCP - General 04/19/16 Ignacio Canela MD Consulting Physician Radiation Oncology 08/12/17 2 documented as of this encounter
--- OUTSIDE RECORDS SUMMARY | 2024-02-28 09:04 | XMS_ITS | Encounter Summary ---
Author Organization [facility] Healthcare Address [address] [place] [address] Care Team Providers Care Hot Oiler Name Role Phone Heron Ricci DO Primary Care Provider +1- [phone] Encounter Details Date Type Department Care Team (Latest Contact Info) Description 04/22/2016 11:24 AM PATIENT RELATIONS SPECIALIST - 04/22/2016 11:59 PM [facility] Hospital Encounter [facility] OP INTERIM [phone] Bebo Boland MD [address] 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 Gender Identity Not on file Sexual Orientation Not on file documented as of this encounter Medications at Time of Discharge omega 9-gdn-dnt-fish oil 300-1,000 mg capsule Take 1 capsule by mouth 2 (two) times a week 05/17/2012 cvckeks-T6-E-FA-B 37-G-zxuvfvqm 500 mg calcium- 400 unit-15 mcg tablet 05/17/2012 10/07/2017 documented as of this encounter Discharge Disposition Disposition Code Departure Means Destination Discharge to home or self care documented in this encounter Plan of Treatment Not on file documented as of this encounter Visit Diagnoses Not on filedocumented in this encounter Care Teams Hot Oiler Relationship Specialty Start Date End Date Heron Ricci DO PCP - General 04/19/16 documented as of this encounter
--- OUTSIDE RECORDS SUMMARY | 2024-02-28 09:04 | XMS_ITS | Encounter Summary ---
Author Organization [facility] Healthcare Address [address] [place] [address] Care Team Providers Care Education Supervisor Name Role Phone Heron Ricci DO Primary Care Provider +1- [phone] Encounter Details Date Type Department Care Team (Latest Contact Info) Description 12/13/2016 7:54 AM CDT - 12/13/2016 11:59 PM CDT Hospital Encounter [facility] OP INTERIM [phone] Ignacio Canela MD [address] [facility] [address] [place] [address] Discharge Disposition: Discharge to home or self care Social History Tobacco Use Types Packs/Day Years Used Date Smoking Tobacco: Former Comments Unknown Sex and Gender Information Value Date Recorded Sex Assigned at Not on file 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 Gender Identity Not on file Sexual Orientation Not on file documented as of this encounter Medications at Time of Discharge omega 3-vzq-arv-fish oil 300-1,000 mg capsule Take 1 capsule by mouth 2 (two) times a week 05/17/2012 dixicbs-L5-V-FA-B 60-T-zwzzoian 500 mg calcium- 400 unit-15 mcg tablet 05/17/2012 10/07/2017 documented as of this encounter Discharge Disposition Disposition Code Departure Means Destination Discharge to home or self care documented in this encounter Plan of Treatment Not on file documented as of this encounter Procedures Procedure Name Priority Date/Time Associated Diagnosis Comments CT ABDOMEN PELVIS W CONTRAST Routine 12/13/2016 1:20 PM CDT POCT CREATININE FOR CONTRAST EVALUATION Routine Gen Lab 12/13/2016 8:10 AM CDT documented in this encounter Results * CT Abdomen Pelvis W Contrast (12/13/2016 1:20 PM CDT) Anatomical Region Laterality Modality Body N/A Computed Tomogra phy 12/13/2016 1:20 PM CDT Narrative 12/13/2016 5:05 PM CDT Analy JANSEN M.D. FINAL REPORT The radiology attending physician has personally reviewed this study, and has reviewed and/or edited this written report and agrees with it. 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 COMPARISON: PET CT 09/01/2016, chest abdomen and pelvis CT 02/26/2016 FINDINGS: ??Lung bases are clear. Breast implants are in place with unchanged nodularity of the right breast parenchyma. ??Heart is normal in size with no pericardial effusion. There is focal fatty infiltration adjacent to the falciform ligament. No focal hepatic lesion. ??The gallbladder is normal. ??The adrenal glands are normal. ??The kidneys are normal and symmetric. ??The spleen and pancreas are normal. Since the most recent prior study of 09/01/2016, there is no change to the size of the circumferential soft tissue centered in the anus. Compared to the prior CT of 02/26/2016, there has been marked decrease in size of the anal mass. ??There is 7 mm area of nodular enhancement in the anterior aspect of the anus at position -860 possibly blood vessels given adjacent mildly prominent vessels. ??No evidence of bowel obstruction. ??There is diverticulosis without evidence of diverticulitis. ??A duodenal diverticulum is present. ??No free air or free fluid. Partially calcified right ovarian cystic lesion is better evaluated on prior MRI. ??The uterus is fibroid. ??There is no lymphadenopathy in the abdomen or pelvis by size criteria. The abdominal aorta and its branches are normal in course and caliber with moderate atherosclerotic calcification. There is no suspicious osseus lesion. Degenerative changes are present in the spine. IMPRESSION: ??1. ??Unchanged anal soft tissue thickening since the most recent prior study of 09/01/2016, which is substantially improved since the pre treatment study of 02/26/2016. 2. No evidence of metastatic disease. Electronically signed by: Alex Valdez M.D. PHD Requested By: Ignacio Canela ??MKenyon. ? Dictated By: ?? PEYTON MUNOZ M.D. ??on Dec 13 2016 12:02P This document has been electronically signed by: ALEX VALDEZ M.D. on Dec 13 2016 12:02P [id number] CHERRY M.D. FINAL REPORT The radiology attending physician has personally reviewed this study, and has reviewed and/or edited this written report and agrees with it. Attending: ??HILTON, ??IGNACIO Requesting: ??Hilton, ??Ignacio Requesting Fax: ?? Attending Fax: ?? Attending ID: ??[id number] Requesting ID: ??[id number] Report To 1 ID: ??[id number] ? Report To 1 Name: ??, ?? Report To 1 FAX: ?? NextGen Order #: ?? Procedure Note Miscellaneous, Not In File - 12/13/2016 Analy JANSEN M.D. FINAL REPORT The radiology attending physician has personally reviewed this study, and has reviewed and/or edited this written report and agrees with it. 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 COMPARISON: PET CT 09/01/2016, chest abdomen and pelvis CT 02/26/2016 FINDINGS: Lung bases are clear. Breast implants are in place with unchanged nodularity of the right breast parenchyma. Heart is normal in size with no pericardial effusion. There is focal fatty infiltration adjacent to the falciform ligament. No focal hepatic lesion. The gallbladder is normal. The adrenal glands are normal. The kidneys are normal and symmetric. The spleen and pancreas are normal. Since the most recent prior study of 09/01/2016, there is no change to the size of the circumferential soft tissue centered in the anus. Compared to the prior CT of 02/26/2016, there has been marked decrease in size of the anal mass. There is 7 mm area of nodular enhancement in the anterior aspect of the anus at position -860 possibly blood vessels given adjacent mildly prominent vessels. No evidence of bowel obstruction. There is diverticulosis without evidence of diverticulitis. A duodenal diverticulum is present. No free air or free fluid. Partially calcified right ovarian cystic lesion is better evaluated on prior MRI. The uterus is fibroid. There is no lymphadenopathy in the abdomen or pelvis by size criteria. The abdominal aorta and its branches are normal in course and caliber with moderate atherosclerotic calcification. There is no suspicious osseus lesion. Degenerative changes are present in the spine. IMPRESSION: 1. Unchanged anal soft tissue thickening since the most recent prior study of 09/01/2016, which is substantially improved since the pre treatment study of 02/26/2016. 2. No evidence of metastatic disease. Electronically signed by: Alex Valdez M.D. PHD Requested By: Ignacio Canela M.D. Dictated By: PEYTON MUNOZ M.D. on Dec 13 2016 12:02P This document has been electronically signed by: ALEX VALDEZ M.D. on Dec 13 2016 12:02P [id number] CHERRY M.D. FINAL REPORT The radiology attending physician has personally reviewed this study, and has reviewed and/or edited this written report and agrees with it. Attending: IGNACIO CANELA Requesting: Ignacio Canela Requesting Fax: Attending Fax: Attending ID: [id number] Requesting ID: [id number] Report To 1 ID: [id number] Report To 1 Name: , Report To 1 FAX: NextGen Order #: Ignacio Canela MD IMG CT PROCEDURES Final Result * POCT creatinine (12/13/2016 8:10 AM CDT) Creatinine POC 0.8 0.6 - 1.1 mg/dL [facility] Blood specimen (specimen) 12/13/2016 8:10 AM CDT 12/13/2016 8:10 AM CDT Ignacio Canela MD POINT OF CARE TEST NORMAN FERRELL Final Result Performing Organization Address City/State/[facility] Co de Phone Number [facility] Department [place] [address] documented in this encounter Visit Diagnoses Not on filedocumented in this encounter Care Teams Education Supervisor Relationship Specialty Start Date End Date Heron Ricci DO PCP - General 04/19/16 documented as of this encounter
--- OUTSIDE RECORDS SUMMARY | 2024-02-28 09:04 | XMS_ITS | Encounter Summary ---
Author Organization [facility] Care Team Providers Care Hvac R Tech Name Role Phone Unavailable Primary Care Provider Unavailabl e Encounter Details Date Type Department Care Team (Latest Contact Info) Description 03/06/2009 5:35 AM FLIGHT HOSTESS - 03/06/2009 9:57 AM FLIGHT HOSTESS Hospital Encounter [facility] Jared Melnedez MD Plastic surgery for unacceptable cosmetic appearance; Capsular contracture of breast implant; Essential hypertension; Personal history of tobacco use, presenting hazards to health; Family history of malignant neoplasm of breast Social History Tobacco Use Types Packs/Day Years Used Date Smoking Tobacco: Never Assessed Comments Unknown Sex and Gender Information Value Date Recorded Sex Assigned at Not on file Legal Sex Female 8:43 AM FLIGHT HOSTESS Gender Identity Not on file Sexual Orientation Not on file documented as of this encounter Plan of Treatment Not on file documented as of this encounter Visit Diagnoses Diagnosis Plastic surgery for unacceptable cosmetic appearance Capsular contracture of breast implant Essential hypertension Unspecified essential hypertension Personal history of tobacco use, presenting hazards to health Family history of malignant neoplasm of breast documented in this encounter
--- OUTSIDE RECORDS SUMMARY | 2024-02-28 09:04 | XMS_ITS | Encounter Summary ---
Author Organization [facility] Healthcare Address [address] [place] [address] Care Team Providers Care Emr Implementation Specialist Name Role Phone Heron Ricci DO Primary Care Provider +1- [phone] Encounter Details Date Type Department Care Team (Latest Contact Info) Description 12/23/2016 5:57 AM CDT - 12/23/2016 9:59 AM CDT Hospital Encounter [facility] OP INTERIM [phone] Talon Steele MD [address] [facility] [phone] [place] [address] Discharge Disposition: Discharge to home or self care Social History Tobacco Use Types Packs/Day Years Used Date Smoking Tobacco: Former Comments Unknown Sex and Gender Information Value Date Recorded Sex Assigned at Not on file 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 Gender Identity Not on file Sexual Orientation Not on file documented as of this encounter Medications at Time of Discharge omega 0-hkr-ehc-fish oil 300-1,000 mg capsule Take 1 capsule by mouth 2 (two) times a week 05/17/2012 nnaloec-Q4-U-FA-B 61-C-lyrnwbou 500 mg calcium- 400 unit-15 mcg tablet 05/17/2012 10/07/2017 documented as of this encounter Discharge Disposition Disposition Code Departure Means Destination Discharge to home or self care documented in this encounter Miscellaneous Notes * Op Note - ProviderFelipe MD - 12/23/2016 12:00 AM CDT Patient: ROXANA ANDERSEN Reg No: [id number] [facility] #: [id number] Admit Dt.: 12/23/2016 : 1950 Pt Type: SDS Room No: Attending: Talon Steele M.D. Surgeon: Talon Steele M.D. Dictating: Talon Steele M.D. Service Dt: 12/23/2016 OPERATIVE REPORT FACILITY ID: [facility] SURGEON Talon Steele MD FIRST POLICE AIDE John Reyes M.D. PREOPERATIVE DIAGNOSIS Persistent anal ulcer after treatment for anal cancer. POSTOPERATIVE DIAGNOSIS Persistent anal ulcer after treatment for anal cancer. PROCEDURE Examination under anesthesia with biopsy. ANESTHESIA IV sedation with 40 mL of 0.25% Marcaine. INDICATIONS FOR PROCEDURE Patient is a 66-year-old woman with a history of squamous cell cancer of the anus who was treated with chemoradiation. Has had a great response but a persistent ulcer. Therefore, we elected to bring her to the operating room for an examination under anesthesia. OPERATIVE FINDINGS Dime-sized ulcer in the right lateral position with soft lateral edges of the ulcer. OPERATIVE PROCEDURE With an informed consent, the patient was brought to the operating room and placed in the prone wilberto-knife position. She was not given any prophylactic IV antibiotics or veno-thromboembolic event prophylaxis. The perineum was prepped and draped in the usual sterile fashion and local anesthesia was administered. A digital rectal examination was performed confirming the findings as noted above. Next a small Hill-Diana retractor was inserted and the anal canal was inspected. We then curetted the base of the ulcer and this debris was sent for pathology, and we then biopsied the edges sharply with Metzenbaum scissors and this was then sent for pathology. Hemostasis was achieved with electrocautery and the anal canal was then packed with gauze. Patient tolerated the procedure well, was then taken to the postanesthesia recovery room in stable condition. Sponge, instrument, and needle counts were correct. TOTAL IV FLUIDS 1 L. ESTIMATED BLOOD LOSS Minimal. SPECIMEN Anal ulcer. Of note I, Dr. Steele, was present for the entire case. Electronically Authenticated and Edited by: aTlon Steele MD On 12/28/2016 08:24 AM CDT Talon Steele M.D. [facility]:ams #[id number] Editing MT: TD: 12/23/2016 12:19 PM cc: Talon Steele M.D. documented in this encounter Plan of Treatment Not on file documented as of this encounter Procedures Procedure Name Priority Date/Time Associated Diagnosis Comments SURGICAL PATHOLOGY Routine 12/23/2016 7: 40 AM CDT SURGICAL PATHOLOGY 12/23/2016 12 :00 AM CDT documented in this encounter Results * Surgical pathology (12/23/2016 7:40 AM CDT) 12/23/2016 7:40 AM CDT 12/23/2016 9:36 AM CDT Narrative 12/27/2016 6:45 AM CDT [facility] [place] [address] SURGICAL PATHOLOGY REPORT FINAL Patient Name: ROXANA ANDERSEN ? Address: [address] [place] [address] ??Service: ??Surgery ??[place], [place] ??[address] ??Location: ??[facility] Taken: 12/23/2016 Gender: F ?? Received: 12/23/2016 : 1950 (Age: 66) ?? Hospital #: ??[id number] Accessioned: 12/23/2016 ?Patient Type: ??[facility] SDS Reported: 12/27/2016 ? Physician(s): Talon Steele M.D. ? Diagnosis: A. ??Rectum, biopsy ? - Ulcer and reactive stromal changes consistent with radiation effect - Detached fragments of hyperplastic squamous epithelium hxz/12/24/2016 13:20 By this signature, I attest that the above diagnosis is based upon my personal examination of the slides(and/or other material indicated in the diagnosis). ?? Gabino Marin M.D. ??Report Electronically Reviewed and Signed Out By ??Gabino Marin M.D. 12/27/2016 06:45:22 Microscopic Description and Comment: Microscopic examination substantiates the above cited diagnosis. ?Aguila Lopez MD PhD ?History: The patient is a 66-year-old woman with a history of squamous cell carcinoma of anus, status post chemoradiation. ??She has had a great response but a persistent ulcer. ??Operative procedure: Anal biopsy. Specimen(s) Received: A: Rectal biopsy Gross Description: The specimen is received one formalin filled container labeled with the patient's name and rectal biopsy. ??It contains multiple irregular irizarry pink soft tissue fragments measuring 2.8 x 0.8 x 0.2 cm in aggregate. ??Labeled A1. ??Jar 0. cnewho/12/23/2016 10:39 ?Yasmine Blackwell, BS, CT (ASCP ? By this signature, I attest that the above diagnosis is based upon my personal examination of the slides(and/or other material). ?? Surgical Pathology report is available electronically in Clinical Desktop. The performance characteristics of some immunohistochemical stains, fluorescence in-situ hybridization tests and immunophenotyping by flow cytometry cited in this report (if any) were determined by the Surgical Pathology Department at [facility] as part of an ongoing senior quality assurance specialist program and in compliance [...] determined by the Surgical Pathology Department of [facility]. ??It has not been cleared or approved by the U. S. Food and Drug Administration. Talon Steele MD LAB PATHOLOGY ORDERABLES Fin al Result * SURGICAL PATHOLOGY (12/23/2016 12:00 AM CDT) Narrative 12/23/2016 12:00 AM CDT Ordered by an unspecified provider. Historical Provider MD LAB PATHOLOGY ORDERABLES Final Result documented in this encounter Visit Diagnoses Not on filedocumented in this encounter Care Teams Emr Implementation Specialist Relationship Specialty Start Date End Date Heron Ricci DO PCP - General 04/19/16 documented as of this encounter
--- OUTSIDE RECORDS SUMMARY | 2024-02-28 09:04 | XMS_ITS | Encounter Summary ---
Author Organization [facility] Address [address] [place] [address] Care Team Providers Care Testing Machine Operator Name Role Phone Heron Ricci DO Primary Care Provider [phone]- [phone] Encounter Details Date Type Department Care Team (Latest Contact Info) Description 09/01/2016 9:19 AM CDT - 09/01/2016 11:59 PM CDT Hospital Encounter [facility] [phone] Ignacio Canela MD [address] [facility] [address] [place] [address] Discharge Disposition: Discharge to home or self care Social History Tobacco Use Types Packs/Day Years Used Date Smoking Tobacco: Former Comments Unknown Sex and Gender Information Value Date Recorded Sex Assigned at Not on file Legal Sex Female 8:43 AM VIRTUAL RECRUITER Gender Identity Not on file Sexual Orientation Not on file documented as of this encounter Medications at Time of Discharge omega 1-sns-oqd-fish oil 300-1,000 mg capsule Take 1 capsule by mouth 2 (two) times a week 05/17/2012 rwpcqhr-N5-V-FA-B 41-O-sqaralgn 500 mg calcium- 400 unit-15 mcg tablet 05/17/2012 10/07/2017 documented as of this encounter Discharge Disposition Disposition Code Departure Means Destination Discharge to home or self care documented in this encounter Plan of Treatment Not on file documented as of this encounter Procedures Procedure Name Priority Date/Time Associated Diagnosis Comments PET/CT FDG SKULL TO THIGH Routine 09/01/2016 4:38 PM CDT documented in this encounter Results * PET/CT FDG Skull to Thigh (09/01/2016 4:38 PM CDT) Anatomical Region Laterality Modality N/A Positron Emissio n Tomography (PET) 09/01/2016 4:38 PM CDT Narrative 09/01/2016 4:38 PM CDT IRLANDA SYKES M.D. GENA FLYNN M.D. FINAL REPORT The radiology attending physician has personally reviewed this study, and has reviewed and/or edited this written report and agrees with it. ACC# ??Date Time ??Exam [id number] Sep 01, 2016 11:38:00 [id number] PET/CT Sk-Thigh ACC# ??Date Time ??Exam [id number] Sep 01, 2016 11:38:00 [id number] PET/CT Sk-Thigh EXAMINATION: ?TUMOR FDG-PET/CT IMAGING DATE OF STUDY: ??09/01/2016 SCANNER: ??[facility] RADIOPHARMACEUTICAL: ??15.6 mCi F-18 Fluorodeoxyglucose (FDG) i.v. ?? 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 The study is requested for restaging after completion of neoadjuvant therapy. Subsequent treatment strategy. TECHNIQUE: ??The patient's fasting blood glucose level, measured by glucometer before injection of FDG, was 96 mg/dL. ??MD-Gastroview was given orally. ??After intravenous administration of FDG, noncontrast CT images were obtained for attenuation correction and for fusion with emission PET images to allow for anatomical localization of PET findings. Emission PET images were then obtained. The area imaged spanned the region from the skull base to the proximal thighs. ??The time from injection of FDG to start of imaging was 79 minutes. The mean liver SUV (reported for director of quality control purposes) is 2.1. ??The study was interpreted on the Smart[employer] workstation. COMPARISON: ??Prior PET/CT dated 03/15/2016 and MRI dated 03/11/2016. FINDINGS: The FDG-avid mass centered in the anus and extending into the distal rectum is decreased in size from prior study, now measuring approximately 4.4 x 4.0 cm, previously 5.7 x 6.4 cm (slice 313/389), and also has less extensive hypermetabolism, now with a smaller focus of markedly increased uptake with a maximum SUV of 9.1, previously 14.3. No new hypermetabolic lesions are seen. 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 Atherosclerotic calcifications are seen within the aorta and its branches. Coronary artery calcifications are seen. Bilateral breast implants are noted. Right apical blebs are noted. Mild right lower lobe atelectasis is seen. Diverticulosis is present without evidence of diverticulitis. A right ovarian cyst with calcification is redemonstrated, with the appearance of a hemorrhagic cyst MRI. Osseous fusion of L4-L5 is seen. Grade 1 anterolisthesis of L3 on L4 is seen. Multilevel degenerative disc changes are seen throughout the spine. ?? IMPRESSION: 1. Interval decreased size and uptake in an anal mass, consistent with partial treatment response. 2. No evidence of metastatic disease. ?? Requested By: Ignacio Canela ??Analy ? Dictated By: ?? GENA FLYNN M.D. ??on Aug ??2016 ??1:32P This document has been electronically signed by: IRLANDA SYKES M.D. on Aug ??2016 ??2:17P [id number] SYKES M.D. GENA FLYNN M.D. FINAL REPORT The radiology attending physician has personally reviewed this study, and has reviewed and/or edited this written report and agrees with it. Attending: ??HILTON, ??IGNACIO Requesting: ??Hilton, ??Ignacio Requesting Fax: ?? Attending Fax: ?? Attending ID: ??[id number] Requesting ID: ??[id number] Report To 1 ID: ??[id number] ? Report To 1 Name: ??, ?? Report To 1 FAX: ?? NextGen Order #: ?? Procedure Note Miscellaneous, Not In File - 12/18/2016 IRLANDA SYKES M.D. GENA FLYNN M.D. FINAL REPORT The radiology attending physician has personally reviewed this study, and has reviewed and/or edited this written report and agrees with it. ACC# Date Time Exam [id number] Sep 01, 2016 11:38:00 [id number] PET/CT Sk-Thigh ACC# Date Time Exam [id number] Sep 01, 2016 11:38:00 [id number] PET/CT Sk-Thigh EXAMINATION: TUMOR FDG-PET/CT IMAGING DATE OF STUDY: 09/01/2016 SCANNER: [facility] RADIOPHARMACEUTICAL: 15.6 mCi F-18 Fluorodeoxyglucose (FDG) i.v. 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 The study is requested for restaging after completion of neoadjuvanttherapy. Subsequent treatment strategy. TECHNIQUE: The patient's fasting blood glucose level, measured by glucometer before injection of FDG, was 96 mg/dL. MD-Gastroview was given orally. After intravenous administration of FDG, noncontrast CT images were obtained for attenuation correction and for fusion with emission PET images to allow for anatomical localization of PET findings. Emission PET images were then obtained. The area imaged spanned the region from the skull base to the proximal thighs. The time from injection of FDG to start of imaging was 79 minutes. The mean liver SUV (reported for director of quality control purposes) is 2.1. The study was interpreted on the [employer] workstation. COMPARISON: Prior PET/CT dated 03/15/2016 and MRI dated 03/11/2016. FINDINGS: The FDG-avid mass centered in the anus and extending into the distal rectum is decreased in size from prior study, now measuring approximately 4.4 x 4.0 cm, previously 5.7 x 6.4 cm (slice 313/389), and also has less extensive hypermetabolism, now with a smaller focus of markedly increased uptake with a maximum SUV of 9.1, previously 14.3. No new hypermetabolic lesions are seen. 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 Atherosclerotic calcifications are seen within the aorta and its branches. Coronary artery calcifications are seen. Bilateral breast implants are noted. Right apical blebs are noted. Mild right lower lobe atelectasis is seen. Diverticulosis is present without evidence of diverticulitis. A right ovarian cyst with calcification is redemonstrated, with the appearance of a hemorrhagic cyst MRI. Osseous fusion of L4-L5 is seen. Grade 1 anterolisthesis of L3 on L4 is seen. Multilevel degenerative disc changes are seen throughout the spine. IMPRESSION: 1. Interval decreased size and uptake in an anal mass, consistent with partial treatment response. 2. No evidence of metastatic disease. Requested By: Ignacio Canela M.D. Dictated By: GENA FLYNN M.D. on Sep 01 2016 1:32P This document has been electronically signed by: IRLANDA SYKES M.D. on Sep 01 2016 2:17P [id number] SYKES M.D. GENA FLYNN M.D. FINAL REPORT The radiology attending physician has personally reviewed this study, and has reviewed and/or edited this written report and agrees with it. Attending: IGNACIO CANELA Requesting: Ignacio Canela Requesting Fax: Attending Fax: Attending ID: [id number] Requesting ID: [id number] Report To 1 ID: [id number] Report To 1 Name: , Report To 1 FAX: NextGen Order #: Ignacio Canela MD IMG PET PROCEDURES Edit ed Result - Final documented in this encounter Visit Diagnoses Not on filedocumented in this encounter Care Teams Testing Machine Operator Relationship Specialty Start Date End Date Hreon Ricci DO PCP - General 04/19/16 documented as of this encounter
--- OUTSIDE RECORDS SUMMARY | 2024-02-28 09:04 | XMS_ITS | Encounter Summary ---
Author Organization [facility] Care Team Providers Care Assembler Wire Mesh Gate Name Role Phone Unavailable Primary Care Provider Unavailabl e Encounter Details Date Type Department Care Team (Late st Contact Info) Description 02/26/2016 10:24 AM STRESS ANALYST - 02/26/2016 11:59 PM STRESS ANALYST Hospital Encounter [facility] Kya, Bebo Crockett MD [address] [facility] [address] [place], [place] [id number] Malignant neoplasm of anus (CMS/HCC); Nontoxic goiter; Diverticulosis of intestine without perforation or abscess without bleeding; Other intra-abdominal and pelvic swelling, mass and lump Social History Tobacco Use Types Packs/Day Years Used Date Smoking Tobacco: Former Comments Unknown Sex and Gender Information Value Date Recorded Sex Assigned at Not on file Legal Sex Female 8:43 AM STRESS ANALYST Gender Identity Not on file Sexual Orientation Not on file documented as of this encounter Medications at Time of Discharge omega 0-zso-cex-fish oil 300-1,000 mg capsule Take 1 capsule by mouth 2 (two) times a week 05/17/2012 [id number]-L8-R-FA-B 11-M-johyevob 500 mg calcium- 400 unit-15 mcg tablet 05/17/2012 10/07/2017 documented as of this encounter Plan of Treatment Not on file documented as of this encounter Procedures Procedure Name Priority Date/Time Associated Diagnosis Comments CT ABDOMEN PELVIS W CONTRAST Routine 02/26/2016 11:[address] CHEST W CONTRAST Routine 02/26/2016 1 1:10 AM STRESS ANALYST BLOOD CREATININE, POINT OF CARE Routine 02/26/2016 10:54 AM STRESS ANALYST documented in this encounter Results * CT Chest W Contrast (02/26/2016 11:10 AM STRESS ANALYST) Anatomical Region Laterality Modality Body N/A Computed Tomogra phy 02/26/2016 11:1 0 AM STRESS ANALYST Narrative 02/26/2016 12:01 PM STRESS ANALYST LICO TALAMANTES M.D. FINAL REPORT ACC# ??Date Time ??Exam [id number] Feb 26, 2016 11:10:[address] Chest with contrast [id number] Feb 26, 2016 11:10:[address] Abd & Pelvis with cont EXAMINATION: ?Computed tomography examination of the chest abdomen and pelvis with contrast HISTORY: ??Anal cancer. TECHNIQUE: Following the uneventful administration of 94 cc Optiray-350 images were obtained through the chest abdomen and pelvis using standard protocol. FINDINGS: ?? There are no comparison studies. Chest: There are no confluent pulmonary infiltrates or pleural effusions. There are no suspicious pulmonary nodules. The heart size is normal. Coronary artery calcifications present. There is no lymphadenopathy within the mediastinum. Bilateral breast implants noted. The thyroid is enlarged and heterogeneous. Abdomen and pelvis: The liver, gallbladder, spleen, pancreas, both adrenal glands, an both kidneys appear normal. The bowel gas pattern is normal. Colonic diverticulosis present. There is incomplete evaluation of a heterogeneously enhancing anal mass. In greatest dimension on slice -1423.5 it measures approximately 6.6 cm AP x 5.2 cm ML. The entire mass ??is not imaged. Subcentimeter perirectal lymph nodes noted. The urinary bladder appears normal. There is a right adnexal cystic mass measuring approximately 3.4 x 2.8 cm and contains a 1.5 cm calcification. The uterus is heterogeneous. Subcentimeter bilateral inguinal lymph nodes noted. Images obtained with bone window settings demonstrate multilevel degenerative changes within the spine. There are no suspicious osseous abnormalities. IMPRESSION: ?? 1. Incomplete evaluation of patient's known anal mass. There are a few subcentimeter perirectal lymph nodes. 2. Enlarged and heterogeneous thyroid. 3. Cystic right adnexal mass containing chunky calcification. Consider further evaluation with pelvic sonography. 4. Colonic diverticulosis. Requested By: Dictated By: ?? LICO TALAMANTES M.D. ??on Feb 26 2016 12:01P This document has been electronically signed by: LICO TALAMANTES M.D. on Feb 26 2016 12:01P [id number] Procedure Note Provider, MD Felipe - 07/06/2016 LICO TALAMANTES M.D. FINAL REPORT ACC# Date Time Exam [id number] Feb 26, 2016 11:10:[address] Chest with contrast [id number] Feb 26, 2016 11:10:[id number] Abd & Pelvis with cont EXAMINATION: Computed tomography examination of the chest abdomen and pelvis with contrast HISTORY: Anal cancer. TECHNIQUE: Following the uneventful administration of 94 cc Optiray-350 images were obtained through the chest abdomen and pelvis using standard protocol. FINDINGS: There are no comparison studies. Chest: There are no confluent pulmonary infiltrates or pleural effusions. There are no suspicious pulmonary nodules. The heart size is normal. Coronary artery calcifications present. There is no lymphadenopathy within the mediastinum. Bilateral breast implants noted. The thyroid is enlarged and heterogeneous. Abdomen and pelvis: The liver, gallbladder, spleen, pancreas, both adrenal glands, an both kidneys appear normal. The bowel gas pattern is normal. Colonic diverticulosis present. There is incomplete evaluation of a heterogeneously enhancing anal mass. In greatest dimension on slice -1423.5 it measures approximately 6.6 cm AP x 5.2 cm ML. The entire mass is not imaged. Subcentimeter perirectal lymph nodes noted. The urinary bladder appears normal. There is a right adnexal cystic mass measuring approximately 3.4 x 2.8 cm and contains a 1.5 cm calcification. The uterus is heterogeneous. Subcentimeter bilateral inguinal lymph nodes noted. Images obtained with bone window settings demonstrate multilevel degenerative changes within the spine. There are no suspicious osseous abnormalities. IMPRESSION: 1. Incomplete evaluation of patient's known anal mass. There are a few subcentimeter perirectal lymph nodes. 2. Enlarged and heterogeneous thyroid. 3. Cystic right adnexal mass containing chunky calcification. Consider further evaluation with pelvic sonography. 4. Colonic diverticulosis. Requested By: Dictated By: LICO TALAMANTES M.D. on Feb 26 2016 12:01P This document has been electronically signed by: LICO TALAMANTES M.D. on Feb 26 2016 12:01P [id number] us Historical Provider MD DAY CT PROCEDURES Final R esult * CT Abdomen Pelvis W Contrast (02/26/2016 11:10 AM STRESS ANALYST) Anatomical Region Laterality Modality Body N/A Computed Tomogra phy 02/26/2016 11:1 0 AM STRESS ANALYST Narrative 02/26/2016 12:01 PM STRESS ANALYST LICO TALAMANTES M.D. FINAL REPORT ACC# ??Date Time ??Exam [id number] Feb 26, 2016 11:10:[address] Chest with contrast [id number] Feb 26, 2016 11:10:[address] Abd & Pelvis with cont EXAMINATION: ?Computed tomography examination of the chest abdomen and pelvis with contrast HISTORY: ??Anal cancer. TECHNIQUE: Following the uneventful administration of 94 cc Optiray-350 images were obtained through the chest abdomen and pelvis using standard protocol. FINDINGS: ?? There are no comparison studies. Chest: There are no confluent pulmonary infiltrates or pleural effusions. There are no suspicious pulmonary nodules. The heart size is normal. Coronary artery calcifications present. There is no lymphadenopathy within the mediastinum. Bilateral breast implants noted. The thyroid is enlarged and heterogeneous. Abdomen and pelvis: The liver, gallbladder, spleen, pancreas, both adrenal glands, an both kidneys appear normal. The bowel gas pattern is normal. Colonic diverticulosis present. There is incomplete evaluation of a heterogeneously enhancing anal mass. In greatest dimension on slice -1423.5 it measures approximately 6.6 cm AP x 5.2 cm ML. The entire mass ??is not imaged. Subcentimeter perirectal lymph nodes noted. The urinary bladder appears normal. There is a right adnexal cystic mass measuring approximately 3.4 x 2.8 cm and contains a 1.5 cm calcification. The uterus is heterogeneous. Subcentimeter bilateral inguinal lymph nodes noted. Images obtained with bone window settings demonstrate multilevel degenerative changes within the spine. There are no suspicious osseous abnormalities. IMPRESSION: ?? 1. Incomplete evaluation of patient's known anal mass. There are a few subcentimeter perirectal lymph nodes. 2. Enlarged and heterogeneous thyroid. 3. Cystic right adnexal mass containing chunky calcification. Consider further evaluation with pelvic sonography. 4. Colonic diverticulosis. Requested By: Dictated By: ?? LICO TALAMANTES M.D. ??on Feb 26 2016 12:01P This document has been electronically signed by: LICO TALAMANTES M.D. on Feb 26 2016 12:01P [id number] Procedure Note Provider, MD Felipe - 07/06/2016 LICO TALAMANTES M.D. FINAL REPORT ACC# Date Time Exam [id number] Feb 26, 2016 11:10:[id number] Chest with contrast [id number] Feb 26, 2016 11:10:[address] Abd & Pelvis with cont EXAMINATION: Computed tomography examination of the chest abdomen and pelvis with contrast HISTORY: Anal cancer. TECHNIQUE: Following the uneventful administration of 94 cc Optiray-350 images were obtained through the chest abdomen and pelvis using standard protocol. FINDINGS: There are no comparison studies. Chest: There are no confluent pulmonary infiltrates or pleural effusions. There are no suspicious pulmonary nodules. The heart size is normal. Coronary artery calcifications present. There is no lymphadenopathy within the mediastinum. Bilateral breast implants noted. The thyroid is enlarged and heterogeneous. Abdomen and pelvis: The liver, gallbladder, spleen, pancreas, both adrenal glands, an both kidneys appear normal. The bowel gas pattern is normal. Colonic diverticulosis present. There is incomplete evaluation of a heterogeneously enhancing anal mass. In greatest dimension on slice -1423.5 it measures approximately 6.6 cm AP x 5.2 cm ML. The entire mass is not imaged. Subcentimeter perirectal lymph nodes noted. The urinary bladder appears normal. There is a right adnexal cystic mass measuring approximately 3.4 x 2.8 cm and contains a 1.5 cm calcification. The uterus is heterogeneous. Subcentimeter bilateral inguinal lymph nodes noted. Images obtained with bone window settings demonstrate multilevel degenerative changes within the spine. There are no suspicious osseous abnormalities. IMPRESSION: 1. Incomplete evaluation of patient's known anal mass. There are a few subcentimeter perirectal lymph nodes. 2. Enlarged and heterogeneous thyroid. 3. Cystic right adnexal mass containing chunky calcification. Consider further evaluation with pelvic sonography. 4. Colonic diverticulosis. Requested By: Dictated By: LICO TALAMANTES M.D. on Feb 26 2016 12:01P This document has been electronically signed by: LICO TALAMANTES M.D. on Feb 26 2016 12:01P [id number] us Historical Provider IMKorin CT PROCEDURES Final R esult * Blood creatinine, point of care (02/26/2016 10:54 AM STRESS ANALYST) Creatinine, POC, bld 0.7 0.6 - 1.1 mg/dl CDR HISTORICAL RESULTS Blood specimen (specimen) 02/26/2016 10:54 AM STRESS ANALYST Bebo Boland MD LAB BLOOD ORDERABLES Fin al Result CDR HISTORICAL RESULTS documented in this encounter Visit Diagnoses Diagnosis Malignant neoplasm of anus (CMS/HCC) (HCC) Malignant neoplasm of anus, unspecified site Nontoxic goiter Unspecified nontoxic nodular goiter Diverticulosis of intestine without perforation or abscess without bleeding Other intra-abdominal and pelvic swelling, mass and lump documented in this encounter
--- OUTSIDE RECORDS SUMMARY | 2024-02-28 09:04 | XMS_ITS | Encounter Summary ---
Author Organization [facility] Facility Care Team Providers Care Hotel Attendant Name Role Phone Unavailable Primary Care Provider Unavailabl e Encounter Details Date Type Department Care Team (Late st Contact Info) Description 03/26/2016 9:00 AM COMPUTER ASSISTANT - 03/26/2016 1:24 PM COMPUTER ASSISTANT Hospital Encounter [facility] Jude Steele MD [address] [place] [address] Malignant neoplasm of rectosigmoid junction (CMS/HCC) Social History Tobacco Use Types Packs/Day Years Used Date Smoking Tobacco: Former Comments Unknown Sex and Gender Information Value Date Recorded Sex Assigned at Not on file Legal Sex Female 8:43 AM COMPUTER ASSISTANT Gender Identity Not on file Sexual Orientation Not on file documented as of this encounter Medications at Time of Discharge omega 6-ovc-gbj-fish oil 300-1,000 mg capsule Take 1 capsule by mouth 2 (two) times a week 05/17/2012 [id number] 68-K-vinhwiwq 500 mg calcium- 400 unit-15 mcg tablet 05/17/2012 10/07/2017 documented as of this encounter Plan of Treatment Not on file documented as of this encounter Procedures Procedure Name Priority Date/Time Associated Diagnosis Comments VENOUS ACCESS Routine 03/26/2016 10:36 AM COMPUTER ASSISTANT US GUIDED VASCULAR ACCESS Routine 03/26/2016 10:36 AM COMPUTER ASSISTANT IR PICC LINE PLACEMENT < 5 YEARS Routine 03/26/2016 10:36 AM COMPUTER ASSISTANT documented in this encounter Results * PICC Line Placement < 5 Years (03/26/2016 10:36 AM COMPUTER ASSISTANT) Anatomical Region Laterality Modality Body N/A X-Ray Angiograph y 03/26/2016 10:3 6 AM COMPUTER ASSISTANT Narrative 03/26/2016 11:45 AM COMPUTER ASSISTANT JUDE PATRICK M.D. FINAL REPORT ACC# ??Date Time ??Exam [id number] Mar 26, 2016 10:36:00 15950 PICC Line >5y/o [id number] Mar 26, 2016 10:36:00 [id number] Fluoro Adrien Accs R [id number] Mar 26, 2016 10:36:00 [id number] USguide Adrien Acc R EXAMINATION: ?NONTUNNELED CENTRAL VENOUS CATHETER PLACEMENT HISTORY: 65-year-old female of colorectal cancer in need of central venous access for chemotherapy administration. ATTENDING PRESENCE: Dr. Patrick, the attending radiologist, was present from the beginning to the end of the procedure. SEDATION: The patient did not require conscious sedation for the procedure. TECHNIQUE: The risks, benefits and alternatives were discussed and informed consent was obtained. ??Prior to beginning the procedure, Coffey Protocol was used to confirm the patient's identity and planned procedure. ??Fluoroscopy time has been recorded in the electronic medical record. Maximum sterile barriers including cap, mask, hand hygiene, sterile gloves, sterile gown, large sterile drape and 2% chlorhexidine for cutaneous antisepsis were used. ?? SITE: ??The skin over the right basilic vein was sterilely prepped, draped and infiltrated with 1% lidocaine. Prior to the procedure, the target vessel was evaluated by ultrasound, an image of the patent vessel recorded, and this image placed in the patient's chart. ??After sterile prep, this vessel was accessed using realtime ultrasound guidance. A guidewire and catheter were then passed centrally using fluoroscopic guidance. ?? The intravascular length from the access site to the right atrium was assessed. ?? After dilating the tract, a dual lumen PICC ??was inserted over the guidewire. The catheter was flushed with 100U/ml heparin and secured in place. ??A sterile dressing was applied. ?? ESTIMATED BLOOD LOSS: less than 30 milliliters. DISCHARGED TO: Recovery and then to home. ?? CONDITION: Stable FINDINGS: ??The final fluoroscopic image demonstrates the catheter with its tip at the cavoatrial junction. ??No complications are seen. IMPRESSION: ?? Successful nontunneled dual lumen PICC, cut at 35 cm, placement via the right basilic vein. PLAN: The catheter is ready for immediate use. ??When treatment is completed, this catheter can be removed at the bedside according to standard hospital protocol. Requested By: Dictated By: ?? JUDE PATRICK M.D. ??on Mar 26 2016 11:45A This document has been electronically signed by: JUDE PATRICK M.D. on Mar 26 2016 11:45A [id number] Procedure Note Provider, MD Felipe - 07/06/2016 JUDE PATRICK M.D. FINAL REPORT ACC# Date Time Exam [id number] Mar 26, 2016 10:36:00 81253 PICC Line >5y/o [id number] Mar 26, 2016 10:36:00 20302 Fluoro Adrien Accs R [id number] Mar 26, 2016 10:36:00 [id number] USguide Adrien Acc R EXAMINATION: NONTUNNELED CENTRAL VENOUS CATHETER PLACEMENT HISTORY: 65-year-old female of colorectal cancer in need of central venous access for chemotherapy administration. ATTENDING PRESENCE: Dr. Patrick, the attending radiologist, was present from the beginning to the end of the procedure. SEDATION: The patient did not require conscious sedation for the procedure. TECHNIQUE: The risks, benefits and alternatives were discussed and informed consent was obtained. Prior to beginning the procedure, Coffey Protocol was used to confirm the patient's identity and planned procedure. Fluoroscopy time has been recorded in the electronic medical record. Maximum sterile barriers including cap, mask, hand hygiene, sterile gloves, sterile gown, large sterile drape and 2% chlorhexidine for cutaneous antisepsis were used. SITE: The skin over the right basilic vein was sterilely prepped, draped and infiltrated with 1% lidocaine. Prior to the procedure, the target vessel was evaluated by ultrasound, an image of the patent vessel recorded, and this image placed in the patient's chart. After sterile prep, this vessel was accessed using realtime ultrasound guidance. A guidewire and catheter were then passed centrally using fluoroscopic guidance. The intravascular length from the access site to the right atrium was assessed. After dilating the tract, a dual lumen PICC was inserted over the guidewire. The catheter was flushed with 100U/ml heparin and secured in place. A sterile dressing was applied. ESTIMATED BLOOD LOSS: less than 30 milliliters. DISCHARGED TO: Recovery and then to home. CONDITION: Stable FINDINGS: The final fluoroscopic image demonstrates the catheter with its tip at the cavoatrial junction. No complications are seen. IMPRESSION: Successful nontunneled dual lumen PICC, cut at 35 cm, placement via the right basilic vein. PLAN: The catheter is ready for immediate use. When treatment is completed, this catheter can be removed at the bedside according to standard hospital protocol. Requested By: Dictated By: JUDE PATRICK M.D. on Mar 26 2016 11:45A This document has been electronically signed by: JUDE PATRICK M.D. on Mar 26 2016 11:45A [id number] Historical Provider MD DAY IR PROCEDURES Final R esult * VENOUS ACCESS (03/26/2016 10:36 AM COMPUTER ASSISTANT) Anatomical Region Laterality Modality N/A Radiographic Hazel ging 03/26/2016 10:3 6 AM COMPUTER ASSISTANT Narrative 03/26/2016 11:45 AM COMPUTER ASSISTANT JUDE PATRICK M.D. FINAL REPORT ACC# ??Date Time ??Exam [id number] Mar 26, 2016 10:36:00 65967 PICC Line >5y/o [id number] Mar 26, 2016 10:36:00 [id number] Fluoro Adrien Accs R [id number] Mar 26, 2016 10:36:00 [id number] USguide Adrien Acc R EXAMINATION: ?NONTUNNELED CENTRAL VENOUS CATHETER PLACEMENT HISTORY: 65-year-old female of colorectal cancer in need of central venous access for chemotherapy administration. ATTENDING PRESENCE: Dr. Patrick, the attending radiologist, was present from the beginning to the end of the procedure. SEDATION: The patient did not require conscious sedation for the procedure. TECHNIQUE: The risks, benefits and alternatives were discussed and informed consent was obtained. ??Prior to beginning the procedure, Coffey Protocol was used to confirm the patient's identity and planned procedure. ??Fluoroscopy time has been recorded in the electronic medical record. Maximum sterile barriers including cap, mask, hand hygiene, sterile gloves, sterile gown, large sterile drape and 2% chlorhexidine for cutaneous antisepsis were used. ?? SITE: ??The skin over the right basilic vein was sterilely prepped, draped and infiltrated with 1% lidocaine. Prior to the procedure, the target vessel was evaluated by ultrasound, an image of the patent vessel recorded, and this image placed in the patient's chart. ??After sterile prep, this vessel was accessed using realtime ultrasound guidance. A guidewire and catheter were then passed centrally using fluoroscopic guidance. ?? The intravascular length from the access site to the right atrium was assessed. ?? After dilating the tract, a dual lumen PICC ??was inserted over the guidewire. The catheter was flushed with 100U/ml heparin and secured in place. ??A sterile dressing was applied. ?? ESTIMATED BLOOD LOSS: less than 30 milliliters. DISCHARGED TO: Recovery and then to home. ?? CONDITION: Stable FINDINGS: ??The final fluoroscopic image demonstrates the catheter with its tip at the cavoatrial junction. ??No complications are seen. IMPRESSION: ?? Successful nontunneled dual lumen PICC, cut at 35 cm, placement via the right basilic vein. PLAN: The catheter is ready for immediate use. ??When treatment is completed, this catheter can be removed at the bedside according to standard hospital protocol. Requested By: Dictated By: ?? JUDE PATRICK M.D. ??on Mar 26 2016 11:45A This document has been electronically signed by: JUED PATRICK M.D. on Mar 26 2016 11:45A [id number] Procedure Note Provider, MD Felipe - 07/06/2016 JUDE PATRICK M.D. FINAL REPORT ACC# Date Time Exam [id number] Mar 26, 2016 10:36:00 [id number] PICC Line >5y/o [id number] Mar 26, 2016 10:36:00 41666 Fluoro Adrien Accs R [id number] Mar 26, 2016 10:36:00 [id number] USguide Adrien Acc R EXAMINATION: NONTUNNELED CENTRAL VENOUS CATHETER PLACEMENT HISTORY: 65-year-old female of colorectal cancer in need of central venous access for chemotherapy administration. ATTENDING PRESENCE: Dr. Patrick, the attending radiologist, was present from the beginning to the end of the procedure. SEDATION: The patient did not require conscious sedation for the procedure. TECHNIQUE: The risks, benefits and alternatives were discussed and informed consent was obtained. Prior to beginning the procedure, Coffey Protocol was used to confirm the patient's identity and planned procedure. Fluoroscopy time has been recorded in the electronic medical record. Maximum sterile barriers including cap, mask, hand hygiene, sterile gloves, sterile gown, large sterile drape and 2% chlorhexidine for cutaneous antisepsis were used. SITE: The skin over the right basilic vein was sterilely prepped, draped and infiltrated with 1% lidocaine. Prior to the procedure, the target vessel was evaluated by ultrasound, an image of the patent vessel recorded, and this image placed in the patient's chart. After sterile prep, this vessel was accessed using realtime ultrasound guidance. A guidewire and catheter were then passed centrally using fluoroscopic guidance. The intravascular length from the access site to the right atrium was assessed. After dilating the tract, a dual lumen PICC was inserted over the guidewire. The catheter was flushed with 100U/ml heparin and secured in place. A sterile dressing was applied. ESTIMATED BLOOD LOSS: less than 30 milliliters. DISCHARGED TO: Recovery and then to home. CONDITION: Stable FINDINGS: The final fluoroscopic image demonstrates the catheter with its tip at the cavoatrial junction. No complications are seen. IMPRESSION: Successful nontunneled dual lumen PICC, cut at 35 cm, placement via the right basilic vein. PLAN: The catheter is ready for immediate use. When treatment is completed, this catheter can be removed at the bedside according to standard hospital protocol. Requested By: Dictated By: JUDE PATRICK M.D. on Mar 26 2016 11:45A This document has been electronically signed by: JUDE PATRICK M.D. on Mar 26 2016 11:45A [id number] us Historical Provider MD DAY XR PROCEDURES Final R esult * US Guided Vascular Access (03/26/2016 10:36 AM COMPUTER ASSISTANT) Anatomical Region Laterality Modality N/A Ultrasound 03/26/2016 10:3 6 AM COMPUTER ASSISTANT Narrative 03/26/2016 11:45 AM COMPUTER ASSISTANT JUDE PATRICK M.D. FINAL REPORT ACC# ??Date Time ??Exam [id number] Mar 26, 2016 10:36:00 45125 PICC Line >5y/o [id number] Mar 26, 2016 10:36:00 [id number] Fluoro Adrien Accs R [id number] Mar 26, 2016 10:36:00 98557 USguide Adrien Acc R EXAMINATION: ?NONTUNNELED CENTRAL VENOUS CATHETER PLACEMENT HISTORY: 65-year-old female of colorectal cancer in need of central venous access for chemotherapy administration. ATTENDING PRESENCE: Dr. Patrick, the attending radiologist, was present from the beginning to the end of the procedure. SEDATION: The patient did not require conscious sedation for the procedure. TECHNIQUE: The risks, benefits and alternatives were discussed and informed consent was obtained. ??Prior to beginning the procedure, Coffey Protocol was used to confirm the patient's identity and planned procedure. ??Fluoroscopy time has been recorded in the electronic medical record. Maximum sterile barriers including cap, mask, hand hygiene, sterile gloves, sterile gown, large sterile drape and 2% chlorhexidine for cutaneous antisepsis were used. ?? SITE: ??The skin over the right basilic vein was sterilely prepped, draped and infiltrated with 1% lidocaine. Prior to the procedure, the target vessel was evaluated by ultrasound, an image of the patent vessel recorded, and this image placed in the patient's chart. ??After sterile prep, this vessel was accessed using realtime ultrasound guidance. A guidewire and catheter were then passed centrally using fluoroscopic guidance. ?? The intravascular length from the access site to the right atrium was assessed. ?? After dilating the tract, a dual lumen PICC ??was inserted over the guidewire. The catheter was flushed with 100U/ml heparin and secured in place. ??A sterile dressing was applied. ?? ESTIMATED BLOOD LOSS: less than 30 milliliters. DISCHARGED TO: Recovery and then to home. ?? CONDITION: Stable FINDINGS: ??The final fluoroscopic image demonstrates the catheter with its tip at the cavoatrial junction. ??No complications are seen. IMPRESSION: ?? Successful nontunneled dual lumen PICC, cut at 35 cm, placement via the right basilic vein. PLAN: The catheter is ready for immediate use. ??When treatment is completed, this catheter can be removed at the bedside according to standard hospital protocol. Requested By: Dictated By: ?? JUDE PATRICK M.D. ??on Mar 26 2016 11:45A This document has been electronically signed by: JUDE PATRICK M.D. on Mar 26 2016 11:45A [id number] Procedure Note Provider, MD Felipe - 07/06/2016 JUDE PATRICK M.D. FINAL REPORT ACC# Date Time Exam [id number] Mar 26, 2016 10:36:00 91439 PICC Line >5y/o [id number] Mar 26, 2016 10:36:00 [id number] Fluoro Adrien Accs R [id number] Mar 26, 2016 10:36:00 13738 USguide Adrien Acc R EXAMINATION: NONTUNNELED CENTRAL VENOUS CATHETER PLACEMENT HISTORY: 65-year-old female of colorectal cancer in need of central venous access for chemotherapy administration. ATTENDING PRESENCE: Dr. Patrick, the attending radiologist, was present from the beginning to the end of the procedure. SEDATION: The patient did not require conscious sedation for the procedure. TECHNIQUE: The risks, benefits and alternatives were discussed and informed consent was obtained. Prior to beginning the procedure, Coffey Protocol was used to confirm the patient's identity and planned procedure. Fluoroscopy time has been recorded in the electronic medical record. Maximum sterile barriers including cap, mask, hand hygiene, sterile gloves, sterile gown, large sterile drape and 2% chlorhexidine for cutaneous antisepsis were used. SITE: The skin over the right basilic vein was sterilely prepped, draped and infiltrated with 1% lidocaine. Prior to the procedure, the target vessel was evaluated by ultrasound, an image of the patent vessel recorded, and this image placed in the patient's chart. After sterile prep, this vessel was accessed using realtime ultrasound guidance. A guidewire and catheter were then passed centrally using fluoroscopic guidance. The intravascular length from the access site to the right atrium was assessed. After dilating the tract, a dual lumen PICC was inserted over the guidewire. The catheter was flushed with 100U/ml heparin and secured in place. A sterile dressing was applied. ESTIMATED BLOOD LOSS: less than 30 milliliters. DISCHARGED TO: Recovery and then to home. CONDITION: Stable FINDINGS: The final fluoroscopic image demonstrates the catheter with its tip at the cavoatrial junction. No complications are seen. IMPRESSION: Successful nontunneled dual lumen PICC, cut at 35 cm, placement via the right basilic vein. PLAN: The catheter is ready for immediate use. When treatment is completed, this catheter can be removed at the bedside according to standard hospital protocol. Requested By: Dictated By: JUDE PATRICK M.D. on Mar 26 2016 11:45A This document has been electronically signed by: JUDE PATRICK M.D. on Mar 26 2016 11:45A [id number] us Historical Provider MD DAY US PROCEDURES Final R esult documented in this encounter Visit Diagnoses Diagnosis Malignant neoplasm of rectosigmoid junction (CMS/HCC) (HCC) Malignant neoplasm of rectosigmoid junction documented in this encounter
--- OUTSIDE RECORDS SUMMARY | 2024-02-28 09:04 | XMS_ITS | Encounter Summary ---
Author Organization [facility] Facility Care Team Providers Care Ag Equipment Field Service Technician Name Role Phone Unavailable Primary Care Provider Unavailabl e Encounter Details Date Type Department Care Team (Latest Contact Info) Description 03/08/2016 12:21 PM ACADEMIC GUIDANCE SPECIALIST - 03/08/2016 11:59 PM [facility] Hospital Encounter [facility] Canela, Ignacio Krueger MD [address] [place] [address] Encounter for antineoplastic radiation therapy; Malignant neoplasm of anus (CMS/HCC); Osteoarthritis; Essential (primary) hypertension; History of recurrent pneumonia; Personal history of traumatic brain injury; Menopausal and perimenopausal disorder; MCC current use of non-steroidal anti-inflammatories (NSAID); MCC current use of aspirin; Other fdc (current) drug therapy; Allergy status to narcotic agent; Family history of malignant neoplasm of breast; Family history of malignant neoplasm of kidney Social History Tobacco Use Types Packs/Day Years Used Date Smoking Tobacco: Former Comments Unknown Sex and Gender Information Value Date Recorded Sex Assigned at Not on file Legal Sex Female 8:43 AM [facility] Gender Identity Not on file Sexual Orientation Not on file documented as of this encounter Medications at Time of Discharge omega 7-mxt-vhv-fish oil 300-1,000 mg capsule Take 1 capsule by mouth 2 (two) times a week 05/17/2012 cfnocna-C9-O-FA-B 03-F-kgvhcnzq 500 mg calcium- 400 unit-15 mcg tablet 05/17/2012 10/07/2017 documented as of this encounter H&P Notes * Provider, Historical, MD - 03/08/2016 12:00 AM CST Department of Radiation Oncology [address] [address] ; PATIENT NAME: ROXANA ANDERSEN : 1950 DATE OF VISIT: 03/08/2016 DICTATING PHYSICIAN: Ignacio Canela M.D. TYPE OF REPORT: H&P ATTENDING PHYSICIAN: Ignacio Canela M.D. REFERRING PHYSICIAN: Tip Barrios M.D., Anthony Siddiqi M.D., Oscar Ricci M.D. 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 She presents today for recommendation regarding radiation therapy for the management of her cancer. HISTORY OF PRESENT ILLNESS: The patient is a 65-year-old female with a 3-month history of hematochezia as well as pressure-like sensation in her low pelvis. She stated that she started experiencing a decrease in stool caliber about 4 to 5 months prior to her presentation. She states that over this course she also had some hematochezia, not in the stool, however, when she wiped with her tissue paper. She also states that she started experiencing dull pain and pressure like sensation approximately 3 months ago. Initially, she went and saw a physician who thought it was hemorrhoids. For that reason, she underwent evaluation for hemorrhoid treatment. At the time of that visit, the physician who performed the exam stated that this appeared to be something different than a hemorrhoid and that it needed to be biopsied. 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 Since then, the patient has been in consult with medical oncology and presents today for radiation therapy consult Today, the patient states that she is doing quite well. She continues to have hematochezia as well as mild pelvic pain that is 3/10. Her stool caliber continues to be decreased. She denies any abdominal pain, nausea, vomiting, headaches, any neurological deficits such as weakness, numbness, or tingling or any loss of sensation. PERFORMANCE STATUS: KPS performance status 100. REVIEW OF SYSTEMS: Except for the symptoms described above, the remainder of the review of systems is negative. Specifically, except as noted, when asked the patient expressed no complaints relative to constitutional (fever, weight loss), eyes, ears, nose, mouth, throat, neurologic, cardiovascular, pulmonary, breast, GI, , skin, musculoskeletal, endocrine, hematologic/lymphatic, or immunologic systems. PAST MEDICAL HISTORY: 1. Arthritis. 2. High blood pressure. 3. Pneumonia. PAST SURGICAL HISTORY: 1. Breast augmentation in 2009. 2. Brain aneurysm in 2005. SCREENING QUESTIONS: Prior radiation therapy: None. Implanted devices: None. Post-menopausal. MEDICATIONS: The patient is currently on: 1. Losartan. 2. Symbicort. 3. Aleve. 4. Tylenol. 5. Calcium. 6. Aspirin. 7. Alendronate. ALLERGIES: The patient is allergic to CODEINE which causes nausea. SOCIAL HISTORY: The patient is currently retired and lives approximately 30 [address] from the clinic. She has zero children. She does have one pack per day smoking history for 30 years. She uses alcohol on social occasions with approximately 4 to 5 drinks per week. FAMILY HISTORY: The patient has a family history of breast cancer in her mother diagnosed at age 55 and history of renal cancer in brother diagnosed at age 44. PHYSICAL EXAMINATION: Vital signs: Reviewed and are within normal limits. General: Alert and oriented x3, in no acute distress. HEENT: Normocephalic, atraumatic. Pupils equal, round and reactive to light. Extraocular movements are intact. Oropharynx without any lesions. Tongue is midline. Trachea is midline. Cardiovascular: Regular rate and rhythm. No murmurs, rubs or gallops. Lungs: Clear to auscultation. Abdomen: Bowel sounds are present. No tenderness to palpation, soft. Extremities: Full range of motion. No deformities identified. Lymphatics: No lymphadenopathy identified. Skin: No rashes or wounds identified. Neurologic: Cranial nerves II through XII are intact. Motor exam reveals 5/5 strength in bilateral upper and lower extremities. Sensory exam reveals intact gross sensation. Psychiatric: Appropriate mood and affect. Rectal exam deferred to simulation. RADIOLOGIC DATA: The patient's imaging studies including CT of the chest, abdomen and pelvis is reviewed which shows a 6.6 x 5.2 cm mass in the anus extending into the rectum. However, this study was not complete given that the scan was cut off mid tumor. 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 PLAN: I and my resident had an extensive discussion with the patient regarding her diagnosis of anal cancer, pathology, treatment to date, and prognosis. We explained the role of each modality including radiation and chemotherapy for the treatment of her cancer. We stated that several studies have supported the use of concurrent chemotherapy and radiation therapy for the treatment of her cancer and, therefore, we would recommend that she receive 6 weeks of radiation therapy concurrently with her chemotherapy. The logistics of daily radiation therapy including the setup, simulation procedure and symptom management were explained to the patient. Radiation therapy would require a CT scan, MRI, and PET scans for planning purposes, and treatments would be Tuesday through Tuesday for approximately 6 weeks. This would be administered concurrently with chemotherapy as explained earlier. This is to be coordinated by medical oncology. We went on to discuss the side effects of radiation treatment. Acute side effects including but not limited to fatigue, skin changes, diarrhea, severe rectal discomfort, and tenesmus were discussed. We additionally discussed the potential long-term complications including small bowel obstructions, ulcers and increased risk of bone fractures. We also stated that she may need to use vaginal dilators in the event that she develops scarring off the lining of the vagina. After we had an extensive discussion, the patient signed a written consent document to proceed with our treatment plan. We will plan for obtaining an MRI this and a PET scan the following week. Currently, the simulation is scheduled next week. All of the patient's questions were answered to her verbal satisfaction. We encouraged them to contact us in the event that they have further questions or concerns before their next visit with us. Thank you for referring this patient to our department for evaluation and treatment. Please do not hesitate to contact us with any questions or concerns. Ignacio Canela M.D. Department of Radiation Oncology /[id number] V.ID: [id number] D.ID: [id number] CC: OSCAR RICCI MD, Primary Care Physician TIP BARRIOS, Referring Physician Ignacio Canela M.D. Approved: 03/16/2016 09:53:25 documented in this encounter Plan of Treatment Not on file documented as of this encounter Visit Diagnoses Diagnosis Encounter for antineoplastic radiation therapy Malignant neoplasm of anus (CMS/HCC) (HCC) Malignant neoplasm of anus, unspecified site Osteoarthritis Osteoarthrosis, unspecified whether generalized or localized, unspecified site Essential (primary) hypertension Unspecified essential hypertension History of recurrent pneumonia Personal history of pneumonia (recurrent) Personal history of traumatic brain injury Menopausal and perimenopausal disorder wedding planner current use of non-steroidal anti-inflammatories (NSAID) MCC current use of aspirin Other computer systems software engineer (current) drug therapy Allergy status to narcotic agent Family history of malignant neoplasm of breast Family history of malignant neoplasm of kidney documented in this encounter
--- OUTSIDE RECORDS SUMMARY | 2024-02-28 09:04 | XMS_ITS | Encounter Summary ---
Author Organization [facility] Healthcare Address [address] [place] [address] Care Team Providers Care Blending Tank Helper Name Role Phone Heron Ricci DO Primary Care Provider +1- [phone] Encounter Details Date Type Department Care Team (Latest Contact Info) Description 12/13/2016 8:28 AM CDT - 12/13/2016 11:59 PM T Hospital Encounter [facility] OP INTERIM [phone] Ignacio Canela MD [address] [facility] [address] [place] [address] Discharge Disposition: Discharge to home or self care Social History Tobacco Use Types Packs/Day Years Used Date Smoking Tobacco: Former Comments Unknown Sex and Gender Information Value Date Recorded Sex Assigned at Not on file Legal Sex Female 8:43 AM DIAMOND ASSORTER Gender Identity Not on file Sexual Orientation Not on file documented as of this encounter Medications at Time of Discharge omega 7-vzj-fdp-fish oil 300-1,000 mg capsule Take 1 capsule by mouth 2 (two) times a week 05/17/2012 ryujoiu-Q3-W-FA-B 94-L-neulvzjv 500 mg calcium- 400 unit-15 mcg tablet 05/17/2012 10/07/2017 documented as of this encounter Discharge Disposition Disposition Code Departure Means Destination Discharge to home or self care documented in this encounter Plan of Treatment Not on file documented as of this encounter Procedures Procedure Name Priority Date/Time Associated Diagnosis Comments GENERAL RADIOLOGY REPORT 12/13/2016 documented in this encounter Results * GENERAL RADIOLOGY REPORT (12/13/2016) Anatomical Region Laterality Modality Radiographic Hazel ging Narrative 12/13/2016 Ordered by an unspecified provider. us Historical Provider MD DAY XR PROCEDURES Final R esult documented in this encounter Visit Diagnoses Not on filedocumented in this encounter Care Teams Blending Tank Helper Relationship Specialty Start Date End Date Heron Ricci DO PCP - General 04/19/16 documented as of this encounter
--- OUTSIDE RECORDS SUMMARY | 2024-02-28 09:04 | XMS_ITS | Encounter Summary ---
Author Organization [facility] Healthcare Address [address] [place] [address] Care Team Providers Care Grain Trimmer Name Role Phone Heron Ricci DO Primary Care Provider +1- [phone] Encounter Details Date Type Department Care Team (Latest Contact Info) Description 12/16/2016 10:35 AM CDT - 12/16/2016 11:59 PM CDT Hospital Encounter [facility] OP INTERIM [phone] Talon Steele MD [address] [facility] [phone] [place] [address] Discharge Disposition: Discharge to home or self care Social History Tobacco Use Types Packs/Day Years Used Date Smoking Tobacco: Former Comments Unknown Sex and Gender Information Value Date Recorded Sex Assigned at Not on file Legal Sex Female 8:43 AM SOFTBALL UMPIRE Gender Identity Not on file Sexual Orientation Not on file documented as of this encounter Medications at Time of Discharge omega 5-rcc-qqr-fish oil 300-1,000 mg capsule Take 1 capsule by mouth 2 (two) times a week 05/17/2012 gsujfww-H2-X-FA-B 12-F-vsdjcats 500 mg calcium- 400 unit-15 mcg tablet 05/17/2012 10/07/2017 documented as of this encounter Discharge Disposition Disposition Code Departure Means Destination Discharge to home or self care documented in this encounter Plan of Treatment Not on file documented as of this encounter Procedures Procedure Name Priority Date/Time Associated Diagnosis Comments DIFFERENTIAL AUTO Routine Gen Lab 12/16/2016 10: 41 AM CDT CBC WITH AUTO DIFFERENTIAL Routine Gen Lab 12/16/2016 10:41 AM CDT BASIC METABOLIC PANEL Routine Gen Lab 12/16/2016 10:41 AM CDT documented in this encounter Results * Basic metabolic panel (12/16/2016 10:41 AM CDT) Pathologist [facility] Sodium 142 135 - 145 mmol/L [facility] Potassium, pl 4.4 3.3 - 4.9 mmol/L [facility] Chloride 102 97 - 110 mmol/L [facility] CO2 32 22 - 32 mmol/L [facility] BUN 18 8 - 25 mg/dL [facility] Glucose 97 70 - 199 mg/dL [facility] Creatinine 0.63 0.60 - 1.10 mg/dL [facility] Calcium 10.1 8.5 - 10.3 mg/dL [facility] Anion gap 8 2 - 15 mmol/L [facility] Blood specimen (specimen) 12/16/2016 10:41 AM CDT 12/16/2016 11:38 AM CDT us Talon Steele MD LAB BLOOD ORDERABLES Final R esult [facility] Department [place] [address] * Differential, auto (12/16/2016 10:41 AM CDT) Pathologist [facility] Neutrophil pct 64.0 % [facility] Imm gran pct 0.6 % [facility] Lymphocyte pct 21.7 % [facility] Monocyte pct 10.2 % [facility] Eosinophil pct 2.2 % [facility] Basophil pct 1.3 % [facility] Neutrophil abs 3.44 1.70 - 6.50 K/cumm [facility] Imm gran abs 0.03 0.00 - 0.10 K/cumm [facility] Lymphocyte abs 1.17 0.80 - 3.30 K/cumm [facility] Monocyte abs 0.55 0.20 - 0.80 K/cumm [facility] Eosinophil abs 0.12 0.00 - 0.50 K/cumm [facility] Basophil abs 0.07 0.00 - 0.10 K/cumm [facility] Blood specimen (specimen) 12/16/2016 10:41 AM CDT 12/16/2016 11:39 AM CDT us Talon Steele MD LAB BLOOD ORDERABLES Final R esult [facility] [place] [address] * (ABNORMAL) CBC with auto differential (12/16/2016 10:41 AM CDT) Pathologist [facility] WBC 5.38 3.80 - 9.90 K/cumm [facility] RBC 4.45 3.90 - 5.20 M/cumm [facility] Hgb 16.3(H) 11.9 - 15.5 g/dL [facility] Hct 47.2(H) 35.6 - 45.5 % [facility] MCV 106.1(H) 81.3 - 96.4 fL [facility] MCH 36.6(H) 27.1 - 33.3 pg [facility] MCHC 34.5 32.3 - 35.7 g/dL [facility] RDW CV 12.3 11.1 - 14.9 % [facility] RDW SD 48.9(H) 35.7 - 48.1 fL [facility] Plt 240 150 - 400 K/cumm [facility] MPV 9.2 9.1 - 12.3 fL [facility] NRBC 0.0 0.0 - 0.2 % [facility] NRBC abs 0.00 0.00 - 0.01 K/cumm [facility] Blood specimen (specimen) 12/16/2016 10:41 AM CDT 12/16/2016 11:39 AM CDT us Talon Steele MD LAB BLOOD ORDERABLES Final R esult [facility] Department [place] [address] documented in this encounter Visit Diagnoses Not on filedocumented in this encounter Care Teams Grain Trimmer Relationship Specialty Start Date End Date Heron Ricci DO PCP - General 04/19/16 documented as of this encounter
--- OUTSIDE RECORDS SUMMARY | 2024-02-28 09:04 | XMS_ITS | Encounter Summary ---
Author Organization [facility] Healthcare Address [address] [place] [address] Care Team Providers Care Information Technology Teacher Name Role Phone Heron Ricci DO Primary Care Provider +1- [phone] Encounter Details Date Type Department Care Team (Latest Contact Info) Description 03/04/2016 11:29 AM DISTILLATION OPERATOR - 04/22/2016 11:59 PM [facility] Hospital Encounter [facility] OP INTERIM [phone] Bebo Boland MD [address] [facility] [address] [place], [place] [id number] Discharge Disposition: Discharge to home or self care Social History Tobacco Use Types Packs/Day Years Used Date Smoking Tobacco: Former Comments Unknown Sex and Gender Information Value Date Recorded Sex Assigned at Not on file Legal Sex Female 8:43 AM DISTILLATION OPERATOR Gender Identity Not on file Sexual Orientation Not on file documented as of this encounter Medications at Time of Discharge omega 6-rkh-gns-fish oil 300-1,000 mg capsule Take 1 capsule by mouth 2 (two) times a week 05/17/2012 oaltmcf-I0-P-FA-B 54-M-gznmeiph 500 mg calcium- 400 unit-15 mcg tablet 05/17/2012 10/07/2017 documented as of this encounter Discharge Disposition Disposition Code Departure Means Destination Discharge to home or self care documented in this encounter Plan of Treatment Not on file documented as of this encounter Visit Diagnoses Not on filedocumented in this encounter Care Teams Information Technology Teacher Relationship Specialty Start Date End Date Heron Ricci DO PCP - General 04/19/16 documented as of this encounter
--- OUTSIDE RECORDS SUMMARY | 2024-02-28 09:04 | XMS_ITS | Encounter Summary ---
Author Organization [facility] Healthcare Address [address] [place] [address] Care Team Providers Care Shipwright Apprentice Name Role Phone Heron Ricci DO Primary Care Provider +1- [phone] Encounter Details Date Type Department Care Team (Latest Contact Info) Description 04/26/2016 10:23 AM TRACKMOBILE OPERATOR - 04/26/2016 3:28 PM TRACKMOBILE OPERATOR Hospital Encounter [facility] OP INTERIM [phone] Bebo Boland MD [address] [facility] [address] [place] [address] Discharge Disposition: Discharge to home or self care Social History Tobacco Use Types Packs/Day Years Used Date Smoking Tobacco: Former Comments Unknown Sex and Gender Information Value Date Recorded Sex Assigned at Not on file Legal Sex Female 8:43 AM TRACKMOBILE OPERATOR Gender Identity Not on file Sexual Orientation Not on file documented as of this encounter Medications at Time of Discharge omega 0-bgs-oug-fish oil 300-1,000 mg capsule Take 1 capsule by mouth 2 (two) times a week 05/17/2012 aoflkes-U0-R-FA-B 03-G-vznqraer 500 mg calcium- 400 unit-15 mcg tablet 05/17/2012 10/07/2017 documented as of this encounter Discharge Disposition Disposition Code Departure Means Destination Discharge to home or self care documented in this encounter Plan of Treatment Not on file documented as of this encounter Visit Diagnoses Not on filedocumented in this encounter Care Teams Shipwright Apprentice Relationship Specialty Start Date End Date Heron Ricci DO PCP - General 04/19/16 documented as of this encounter
--- OUTSIDE RECORDS SUMMARY | 2024-02-28 09:04 | XMS_ITS | Encounter Summary ---
Author Organization [facility] Facility Care Team Providers Care Cement Production Plant Operator Name Role Phone Unavailable Primary Care Provider Unavailabl e Encounter Details Date Type Department Care Team (Late st Contact Info) Description 03/15/2016 6:42 AM GAS WELDER APPRENTICE - 03/15/2016 11:59 PM GAS WELDER APPRENTICE Hospital Encounter [facility] Canela, Ignacio Krueger MD [address] [facility] [address] [place] [address] Malignant neoplasm of anus (CMS/HCC); Localized enlarged lymph nodes Social History Tobacco Use Types Packs/Day Years Used Date Smoking Tobacco: Former Comments Unknown Sex and Gender Information Value Date Recorded Sex Assigned at Not on file Legal Sex Female 8:43 AM GAS WELDER APPRENTICE Gender Identity Not on file Sexual Orientation Not on file documented as of this encounter Medications at Time of Discharge omega 4-xke-oaf-fish oil 300-1,000 mg capsule Take 1 capsule by mouth 2 (two) times a week 05/17/2012 [id number]-V1-V-FA-B 00-P-frmogute 500 mg calcium- 400 unit-15 mcg tablet 05/17/2012 10/07/2017 documented as of this encounter Plan of Treatment Not on file documented as of this encounter Procedures Procedure Name Priority Date/Time Associated Diagnosis Comments PET/CT FDG SKULL TO THIGH Routine 03/15/2016 8:44 AM GAS WELDER APPRENTICE documented in this encounter Results * PET/CT FDG Skull to Thigh (03/15/2016 8:44 AM GAS WELDER APPRENTICE) Anatomical Region Laterality Modality N/A Positron Emissio n Tomography (PET) 03/15/2016 8:44 AM GAS WELDER APPRENTICE Narrative 03/15/2016 12:17 PM GAS WELDER APPRENTICE IRLANDA SYKES M.D. LATOSHA SO M.D. FINAL REPORT The radiology attending physician has personally reviewed this study, and has reviewed and/or edited this written report and agrees with it. ACC# ??Date Time ??Exam [id number] Mar 15, 2016 08:44:00 [id number] PET/CT Sk-Thigh ACC# ??Date Time ??Exam [id number] Mar 15, 2016 08:44:00 [id number] PET/CT Sk-Thigh EXAMINATION: ?TUMOR FDG-PET/CT IMAGING DATE OF STUDY: ??03/15/2015 SCANNER: ??mCT RADIOPHARMACEUTICAL: ??12.46 mCi F-18 Fluorodeoxyglucose (FDG) i.v. ?? Injection site: Right antecubital fossa. HISTORY: 65-year-old woman with anal cancer, preparing to undergo chemotherapy and radiation. The study is requested for initial staging. Initial treatment strategy. TECHNIQUE: ??The patient's fasting blood glucose level, measured by glucometer before injection of FDG, was 100 mg/dL. ??MD-Gastroview was given orally. ??After intravenous [...] of FDG to start of imaging was 65 and minutes. The mean liver SUV (reported for lead quality control technician purposes) is 2.39. ??The study was interpreted on the Pint Please workstation. COMPARISON: ??Prior CT dated 02/26/2016 FINDINGS: There is linearly increased uptake in an intercostal muscle in the right tenth and eleventh rib space, likely related to muscular strain. There is no uptake in the hemorrhagic cyst of the right ovary. There is increased uptake in the posterior elements of L4/L5 representing degenerative disease. There is increased uptake adjacent to the left iliac, most likely due to tendinopathy. There is a rounded right inguinal lymph node with increased uptake, most compatible with metastatic disease. The large anal mass demonstrates markedly increased uptake. The most FDG-avid lesion is located in the anus, has a maximum SUV of 14.3, and approximate axial dimensions of 6 x [address] findings: There are a few apical blebs in the lungs. There are degenerative changes in the spine, most pronounced at C7/T1 and L2/L3. There is sigmoid and descending colon diverticulosis. Calcified right ovarian cyst is most likely a hemorrhagic cyst on MRI. Calcifications are seen in the aorta. ?? IMPRESSION: FDG-avid anal lesion representing known primary cancer with a single rounded FDG-avid right inguinal lymph node compatible with metastatic disease. ?? Requested By: Dictated By: ?? LATOSHA SO M.D. ??on Mar 15 2016 10:46A This document has been electronically signed by: IRLANDA SYKES M.D. on Mar 15 2016 12:17P [id number] Procedure Note Provider, MD Felipe - 07/06/2016 Analy PAIGE M.D. FINAL REPORT The radiology attending physician has personally reviewed this study, and has reviewed and/or edited this written report and agrees with it. ACC# Date Time Exam [id number] Mar 15, 2016 08:44:00 [id number] PET/CT Sk-Thigh ACC# Date Time Exam [id number] Mar 15, 2016 08:44:00 [id number] PET/CT Sk-Thigh EXAMINATION: TUMOR FDG-PET/CT IMAGING DATE OF STUDY: 03/15/2015 SCANNER: Novast RADIOPHARMACEUTICAL: 12.46 mCi F-18 Fluorodeoxyglucose (FDG) i.v. Injection site: Right antecubital fossa. HISTORY: 65-year-old woman with anal cancer, preparing to undergo chemotherapy and radiation. The study is requested for initial staging. Initial treatment strategy. TECHNIQUE: The patient's fasting blood glucose level, measured by glucometer before injection of FDG, was 100 mg/dL. MD-Gastroview was given orally. After intravenous [...] of FDG to start of imaging was 65 and minutes. The mean liver SUV (reported for lead quality control technician purposes) is 2.39. The study was interpreted on the Pint Please workstation. COMPARISON: Prior CT dated 02/26/2016 FINDINGS: There is linearly increased uptake in an intercostal muscle in the right tenth and eleventh rib space, likely related to muscular strain. There is no uptake in the hemorrhagic cyst of the right ovary. There is increased uptake in the posterior elements of L4/L5 representing degenerative disease. There is increased uptake adjacent to the left iliac, most likely due to tendinopathy. There is a rounded right inguinal lymph node with increased uptake, most compatible with metastatic disease. The large anal mass demonstrates markedly increased uptake. The most FDG-avid lesion is located in the anus, has a maximum SUV of 14.3, and approximate axial dimensions of 6 x [address] findings: There are a few apical blebs in the lungs. There are degenerative changes in the spine, most pronounced at C7/T1 and L2/L3. There is sigmoid and descending colon diverticulosis. Calcified right ovarian cyst is most likely a hemorrhagic cyst on MRI. Calcifications are seen in the aorta. IMPRESSION: FDG-avid anal lesion representing known primary cancer with a single rounded FDG-avid right inguinal lymph node compatible with metastatic disease. Requested By: Dictated By: LATOSHA SO M.D. on Mar 15 2016 10:46A This document has been electronically signed by: IRLANDA SYKES M.D. on Mar 15 2016 12:17P [id number] Historical Provider MD DAY PET PROCEDURES Final Result documented in this encounter Visit Diagnoses Diagnosis Malignant neoplasm of anus (CMS/HCC) (HCC) Malignant neoplasm of anus, unspecified site Localized enlarged lymph nodes documented in this encounter
--- OUTSIDE RECORDS SUMMARY | 2024-02-28 09:04 | XMS_ITS | Encounter Summary ---
Author Organization [facility] Healthcare Address [address] [place] [address] Care Team Providers Care Physical Therapy Assistant Instructor Name Role Phone Heron Ricci DO Primary Care Provider +1- [phone] Encounter Details Date Type Department Care Team (Latest Contact Info) Description 09/06/2016 9:31 AM CDT - 09/06/2016 11:59 PM [facility] Hospital Encounter [facility] OP INTERIM [phone] Ignacio Canela MD [address] [facility] [address] [place] [address] Discharge Disposition: Discharge to home or self care Social History Tobacco Use Types Packs/Day Years Used Date Smoking Tobacco: Former Comments Unknown Sex and Gender Information Value Date Recorded Sex Assigned at Not on file Legal Sex Female 8:43 AM INVESTIGATIVE RESEARCH SPECIALIST Gender Identity Not on file Sexual Orientation Not on file documented as of this encounter Medications at Time of Discharge omega 2-fqz-gmr-fish oil 300-1,000 mg capsule Take 1 capsule by mouth 2 (two) times a week 05/17/2012 tbhxden-F7-I-FA-B 79-G-hfbrzaad 500 mg calcium- 400 unit-15 mcg tablet 05/17/2012 10/07/2017 documented as of this encounter Discharge Disposition Disposition Code Departure Means Destination Discharge to home or self care documented in this encounter Plan of Treatment Not on file documented as of this encounter Visit Diagnoses Not on filedocumented in this encounter Care Teams Physical Therapy Assistant Instructor Relationship Specialty Start Date End Date Heron Ricci DO PCP - General 04/19/16 documented as of this encounter
--- OUTSIDE RECORDS SUMMARY | 2024-02-28 09:04 | XMS_ITS | Encounter Summary ---
Author Organization [facility] Healthcare Address [address] [place] [address] Care Team Providers Care Shot Peen Operator Name Role Phone Heron Ricci DO Primary Care Provider +1- [phone] Encounter Details Date Type Department Care Team (Latest Contact Info) Description 03/08/2016 12:21 PM UPTWISTER TENDER - 05/11/2016 11:59 PM CDT Hospital Encounter [facility] OP INTERIM [phone] Ignacio Canela MD [address] [facility] [address] [place] [address] Discharge Disposition: Discharge to home or self care Social History Tobacco Use Types Packs/Day Years Used Date Smoking Tobacco: Former Comments Unknown Sex and Gender Information Value Date Recorded Sex Assigned at Not on file Legal Sex Female 8:43 AM UPTWISTER TENDER Gender Identity Not on file Sexual Orientation Not on file documented as of this encounter Medications at Time of Discharge omega 9-snb-oxe-fish oil 300-1,000 mg capsule Take 1 capsule by mouth 2 (two) times a week 05/17/2012 ubcsszt-Q3-V-FA-B 47-X-ylmxustt 500 mg calcium- 400 unit-15 mcg tablet 05/17/2012 10/07/2017 documented as of this encounter Discharge Disposition Disposition Code Departure Means Destination Discharge to home or self care documented in this encounter Plan of Treatment Not on file documented as of this encounter Visit Diagnoses Not on filedocumented in this encounter Care Teams Shot Peen Operator Relationship Specialty Start Date End Date Heron Ricci DO PCP - General 04/19/16 documented as of this encounter
--- OUTSIDE RECORDS SUMMARY | 2024-02-28 09:04 | XMS_ITS | Encounter Summary ---
Author Organization [facility] Facility Care Team Providers Care Cotton Breeder Name Role Phone Unavailable Primary Care Provider Unavailabl e Encounter Details Date Type Department Care Team (Late st Contact Info) Description 03/11/2016 1:14 PM SMART ENERGY SPECIALIST - 03/11/2016 11:59 PM SMART ENERGY SPECIALIST Hospital Encounter [facility] CLINCON[facility] Kya, Tip Crockett MD [address] [facility] [address] [place], [place] [id number] Malignant neoplasm of anus (CMS/HCC) Social History Tobacco Use Types Packs/Day Years Used Date Smoking Tobacco: Former Comments Unknown Sex and Gender Information Value Date Recorded Sex Assigned at Not on file Legal Sex Female 8:43 AM SMART ENERGY SPECIALIST Gender Identity Not on file Sexual Orientation Not on file documented as of this encounter Medications at Time of Discharge omega 1-kvg-cqs-fish oil 300-1,000 mg capsule Take 1 capsule by mouth 2 (two) times a week 05/17/2012 avmcxcu-D2-A-FA-B 58-Z-fyvcdwem 500 mg calcium- 400 unit-15 mcg tablet 05/17/2012 10/07/2017 documented as of this encounter Plan of Treatment Not on file documented as of this encounter Procedures Procedure Name Priority Date/Time Associated Diagnosis Comments MRI PELVIS W WO CONTRAST Routine 03/11/2016 2:55 PM SMART ENERGY SPECIALIST documented in this encounter Results * MRI Pelvis W WO Contrast (03/11/2016 2:55 PM SMART ENERGY SPECIALIST) Anatomical Region Laterality Modality Pelvis N/A Magnetic Resonan ce 03/11/2016 2:55 PM SMART ENERGY SPECIALIST Narrative 03/11/2016 4:43 PM SMART ENERGY SPECIALIST AYAD BRAMBILA M.D. TIP CARLOS MD FINAL REPORT The radiology attending physician has personally reviewed this study, and has reviewed and/or edited this written report and agrees with it. ACC# ??Date Time ??Exam [id number] Mar 11, 2016 14:55:00 [id number] MRI Pelvis wo&with cont EXAMINATION: ?MAGNETIC RESONANCE IMAGING OF THE PELVIS WITHOUT AND WITH CONTRAST HISTORY: 65-year-old woman with history of anal squamous cell carcinoma TECHNIQUE: ??MR imaging of the pelvis was performed prior to and following administration of intravenous gadolinium. ? Protocol: ??Rectal cancer staging Creatinine: ??0.6 mg/dL Estimated GFR: Greater than 6 ml/min/1.73 meters squared Contrast: ??Dotarem, 14 ml, single dose FINDINGS: Comparison is made to prior CT study dated 01/27/2016. Primary tumor: Centered in the anal canal is a T1 and T2 hypointense enhancing mass with areas of necrosis. Measures approximately 4.4 x 5.8 x 7.5 cm (AP by transverse by craniocaudal). The mass extends into the right ischioanal fossa and above the anorectal junction by approximately 2 cm. Staging information: There is focal involvement of the lower third of the vagina posteriorly along the right side (best seen series 16, image 21). In addition, there is bilateral involvement of the internal and external anal sphincters. Lymph nodes: Prominent bilateral inguinal lymph nodes are seen, but none meet imaging size criteria to be considered metastatic. There is no pelvic lymphadenopathy. Incidental findings: There are uterine fibroids measuring up to 2.3 cm at the fundus. Within the right ovary is a 3.2 cm cyst containing blood products and calcification consistent with a hemorrhagic cyst. There is sigmoid diverticulosis. No free fluid is seen. Marrow signal is within normal limits. IMPRESSION: ?? 1. Stage T4 anal squamous cell carcinoma with focal invasion of the lower third of the vagina and bilateral involvement of the internal and external anal sphincters. 2. No metastatic lymphadenopathy. Requested By: Dictated By: ?? TIP CARLOS MD ??on Mar 11 2016 ??3:23P This document has been electronically signed by: AYAD BRAMBILA M.D. on Mar 11 2016 ??4:43P [id number] Procedure Note Provider, MD Felipe - 07/06/2016 AYAD BRAMBILA M.D. TIP CARLOS MD FINAL REPORT The radiology attending physician has personally reviewed this study, and has reviewed and/or edited this written report and agrees with it. ACC# Date Time Exam [id number] Mar 11, 2016 14:55:00 [id number] MRI Pelvis wo&with cont EXAMINATION: MAGNETIC RESONANCE IMAGING OF THE PELVIS WITHOUT AND WITH CONTRAST HISTORY: 65-year-old woman with history of anal squamous cell carcinoma TECHNIQUE: MR imaging of the pelvis was performed prior to and following administration of intravenous gadolinium. Protocol: Rectal cancer staging Creatinine: 0.6 mg/dL Estimated GFR: Greater than 6 ml/min/1.73 meters squared Contrast: Dotarem, 14 ml, single dose FINDINGS: Comparison is made to prior CT study dated 01/27/2016. Primary tumor: Centered in the anal canal is a T1 and T2 hypointense enhancing mass with areas of necrosis. Measures approximately 4.4 x 5.8 x 7.5 cm (AP by transverse by craniocaudal). The mass extends into the right ischioanal fossa and above the anorectal junction by approximately 2 cm. Staging information: There is focal involvement of the lower third of the vagina posteriorly along the right side (best seen series 16, image 21). In addition, there is bilateral involvement of the internal and external anal sphincters. Lymph nodes: Prominent bilateral inguinal lymph nodes are seen, but none meet imaging size criteria to be considered metastatic. There is no pelvic lymphadenopathy. Incidental findings: There are uterine fibroids measuring up to 2.3 cm at the fundus. Within the right ovary is a 3.2 cm cyst containing blood products and calcification consistent with a hemorrhagic cyst. There is sigmoid diverticulosis. No free fluid is seen. Marrow signal is within normal limits. IMPRESSION: 1. Stage T4 anal squamous cell carcinoma with focal invasion of the lower third of the vagina and bilateral involvement of the internal and external anal sphincters. 2. No metastatic lymphadenopathy. Requested By: Dictated By: TIP CARLOS MD on Mar 11 2016 3:23P This document has been electronically signed by: AYAD BRAMBILA M.D. on Mar 11 2016 4:43P [id number] Historical Provider MD DAY MRI PROCEDURES Final Result documented in this encounter Visit Diagnoses Diagnosis Malignant neoplasm of anus (CMS/HCC) (HCC) Malignant neoplasm of anus, unspecified site documented in this encounter
--- OUTSIDE RECORDS SUMMARY | 2024-02-28 09:04 | XMS_ITS | Encounter Summary ---
Author Organization [facility] Facility Care Team Providers Care Plastic Process Technician Name Role Phone Unavailable Primary Care Provider Unavailabl e Encounter Details Date Type Department Care Team (Late st Contact Info) Description 03/03/2016 10:00 AM COMMERCIAL LINES ACCOUNT EXECUTIVE - 03/03/2016 11:59 PM COMMERCIAL LINES ACCOUNT EXECUTIVE Hospital Encounter [facility] CLINCONV Kya, Bebo Crockett MD [address] [facility] [address] [place] [address] Social History Tobacco Use Types Packs/Day Years Used Date Smoking Tobacco: Former Comments Unknown Sex and Gender Information Value Date Recorded Sex Assigned at Not on file Legal Sex Female 8:43 AM COMMERCIAL LINES ACCOUNT EXECUTIVE Gender Identity Not on file Sexual Orientation Not on file documented as of this encounter Medications at Time of Discharge omega 8-sxn-eou-fish oil 300-1,000 mg capsule Take 1 capsule by mouth 2 (two) times a week 05/17/2012 mimxjdn-O9-M-FA-B 87-L-vuqqpcft 500 mg calcium- 400 unit-15 mcg tablet 05/17/2012 10/07/2017 documented as of this encounter Plan of Treatment Not on file documented as of this encounter Visit Diagnoses Not on filedocumented in this encounter
--- OUTSIDE RECORDS SUMMARY | 2024-02-28 09:04 | XMS_ITS | Encounter Summary ---
Author Organization [facility] Facility Care Team Providers Care Hearth Feeder Name Role Phone Unavailable Primary Care Provider Unavailabl e Encounter Details Date Type Department Care Team (Late st Contact Info) Description 03/04/2016 11:29 AM [facility] - 03/04/2016 11:59 PM [facility] Hospital Encounter [facility] Kya, Bebo Crockett MD [address] [facility] [address] [place], [place] [id number] Malignant neoplasm of anus (CMS/HCC) Social History Tobacco Use Types Packs/Day Years Used Date Smoking Tobacco: Former Comments Unknown Sex and Gender Information Value Date Recorded Sex Assigned at Not on file Legal Sex Female 8:43 AM [facility] Gender Identity Not on file Sexual Orientation Not on file documented as of this encounter Medications at Time of Discharge omega 6-dhl-ysp-fish oil 300-1,000 mg capsule Take 1 capsule by mouth 2 (two) times a week 05/17/2012 [id number] 46-I-kancofaq 500 mg calcium- 400 unit-15 mcg tablet 05/17/2012 10/07/2017 documented as of this encounter Plan of Treatment Not on file documented as of this encounter Procedures Procedure Name Priority Date/Time Associated Diagnosis Comments SERUM TROPONIN I Routine 04/22/2016 9:59 AM [facility] SERUM CREATINE KINASE (CK) MB Routine 04/22/2016 9:59 AM [facility] PLASMA COMPREHENSIVE METABOLIC PANEL Routine 04/22/2016 9:59 AM [facility] BLOOD B-TYPE NATRIURETIC PEPTIDE (BNP) Routine 04/22/2016 9:59 AM [facility] BLOOD CELL COUNT (CBC) Routine 7 9:59 AM [facility] BLOOD CELL MORPHOLOGIC EXAM Routine 04/22/2016 9:59 AM [facility] BLOOD CELL COUNT (CBC) Routine 7 1:57 PM [facility] BLOOD CELL MORPHOLOGIC EXAM Routine 03/29/2016 1:57 PM [facility] SERUM HUMAN IMMUNODEFICIENCY VIRUS (HIV) 1/2 AB + P24 AG Routine 03/04/2016 11:49 AM [facility] PLASMA PROTHROMBIN TIME (PT) Routine 03/04/2016 11:49 AM [facility] PLASMA PARTIAL THROMBOPLASTIN TIME (PTT) Routine 03/04/2016 11:49 AM [facility] PLASMA COMPREHENSIVE METABOLIC PANEL Routine 03/04/2016 11:49 AM [facility] BLOOD CELL COUNT (CBC) Routine 7 11:49 AM [facility] BLOOD CELL MORPHOLOGIC EXAM Routine 03/04/2016 11:49 AM [facility] DISCHARGE LABORATORY CUMULATIVE REPORT 03/04/2016 documented in this encounter Results * (ABNORMAL) Serum creatine kinase (CK) MB (04/22/2016 9:59 AM [facility]) CK 358(H) 20 - 200 Units/L CDR HISTORICAL RESULTS CK MB 10(C) 0 - 7 ng/ml CDR HISTORICAL RESULTS Comment: Critical result called to and read back by Nyasia Rosales (RN) on 04/22/2016 12:49 [facility] to Edith Sandy([facility])_. Serum 04/22/2016 9:59 AM [facility] Bebo Boland MD LAB BLOOD ORDERABLES Fin al Result Performing Organization Address [facility] Co de Phone Number CDR HISTORICAL RESULTS * Serum troponin I (04/22/2016 9:59 AM [facility]) Pathologist [facility] Troponin I <0.03 0.00 - 0.03 ng/ml CDR HISTORICAL RESULTS Comment: Interpretive Data Serial determinations are recommended for the diagnosis of myocardial infarction (Third [place] Definition of Myocardial Infarction. ??J Am Hilary Cardiol 2012;60:1581-98). Current interpretive data was last revised on 13. Serum 04/22/2016 9:59 AM [facility] Bebo Boland MD LAB BLOOD ORDERABLES Fin al Result Performing Organization Address [facility] de Phone Number CDR HISTORICAL RESULTS * Blood B-type natriuretic peptide (BNP) (04/22/2016 9:59 AM [facility]) Pathologist [facility] BNP 90 0 - 100 pg/ml CDR HISTORICAL RESULTS Blood specimen (specimen) 04/22/2016 9:59 AM [facility] Bebo Boland MD LAB BLOOD ORDERABLES Fin al Result Performing Organization Address [facility] de Phone Number CDR HISTORICAL RESULTS * (ABNORMAL) Plasma comprehensive metabolic panel (04/22/2016 9:59 AM [facility]) Pathologist [facility] Sodium 136 135 - 145 mmol/L CDR HISTORICAL RESULTS K, pl 4.7 3.3 - 4.9 mmol/L CDR HISTORICAL RESULTS CO2 28 22 - 32 mmol/L CDR HISTORICAL RESULTS BUN 30(H) 8 - 25 mg/dl CDR HISTORICAL RESULTS Glucose 125 70 - 199 mg/dl CDR HISTORICAL RESULTS Creatinine 0.65 0.60 - 1.10 mg/dl CDR HISTORICAL RESULTS Calcium 9.5 8.5 - 10.3 mg/dl CDR HISTORICAL RESULTS Chloride 96(L) 97 - 110 mmol/L CDR HISTORICAL RESULTS Alb 4.3 3.5 - 5.0 g/dl CDR HISTORICAL RESULTS AST 25 10 - 45 Units/L CDR HISTORICAL RESULTS ALT 21 7 - 45 Units/L CDR HISTORICAL RESULTS Alk phos 78 40 - 130 Units/L CDR HISTORICAL RESULTS Bilirubin 0.3 0.1 - 1.2 mg/dl CDR HISTORICAL RESULTS Protein, pl 7.0 6.5 - 8.5 g/dl CDR HISTORICAL RESULTS A. gap 12 2 - 15 mmol/L CDR HISTORICAL RESULTS Plasma 04/22/2016 9:59 AM [facility] Bebo Boland MD LAB BLOOD ORDERABLES Fin al Result Performing Organization Address [facility] de Phone Number CDR HISTORICAL RESULTS * (ABNORMAL) Blood cell count (CBC) (04/22/2016 9:59 AM [facility]) WBC 5.9 3.8 - 9.9 K/cumm CDR HISTORICAL RESULTS RBC 3.44(L) 3.90 - 5.20 M/cumm CDR HISTORICAL RESULTS Hgb 11.4(L) 11.9 - 15.5 g/dl CDR HISTORICAL RESULTS Hct 35.8 35.6 - 45.5 % CDR HISTORICAL RESULTS MCV 104.1(H) 81.3 - 96.4 fl CDR HISTORICAL RESULTS MCH 33.1 27.1 - 33.3 pg CDR HISTORICAL RESULTS MCHC 31.8(L) 32.3 - 35.7 g/dl CDR HISTORICAL RESULTS Rdw 14.5 11.1 - 14.9 % CDR HISTORICAL RESULTS RDW 49.5(H) 35.7 - 48.1 fl CDR HISTORICAL RESULTS Platelets 126(L) 150 - 400 K/cumm CDR HISTORICAL RESULTS MPV 8.8(L) 9.1 - 12.3 fl CDR HISTORICAL RESULTS NRBC 0.3(H) 0.0 - 0.2 % CDR HIST ORICAL RESULTS NRBC, abs 0.02(H) 0.00 - 0.01 K/cumm CDR HISTORICAL RESULTS Blood specimen (specimen) 04/22/2016 9:59 AM [facility] Bebo Boland MD LAB BLOOD ORDERABLES Fin al Result Performing Organization Address [facility] Co de Phone Number CDR HISTORICAL RESULTS * (ABNORMAL) Blood cell morphologic exam (04/22/2016 9:59 AM [facility]) Neutrophils 85.4 % CDR HIST ORICAL RESULTS Immature granulocytes 0.3 % CDR HISTORICAL RESULTS Lymphocytes 6.5 % CDR HIST ORICAL RESULTS Monos 7.5 % CDR HISTOR ICAL RESULTS Eosinophils 0.0 % CDR HIST ORICAL RESULTS Basophils 0.3 % CDR HISTOR ICAL RESULTS Neutrophils, abs 5.0 1.7 - 6.5 K/cumm CDR HISTORICAL RESULTS Immature granulocyte, abs 0.0 0.0 - 0.1 K/cumm CDR HISTORICAL RESULTS Lymphocytes, abs 0.4(L) 0.8 - 3.3 K/cumm CDR HISTORICAL RESULTS Monocytes, absolute 0.4 0.2 - 0.8 K/cumm CDR HISTORICAL RESULTS Eosinophils, abs 0.0 0.0 - 0.5 K/cumm CDR HISTORICAL RESULTS Basophils, abs 0.0 0.0 - 0.1 K/cumm CDR HISTORICAL RESULTS Blood specimen (specimen) 04/22/2016 9:59 AM [facility] Bebo Boland MD LAB BLOOD ORDERABLES [facility] al Result CDR HISTORICAL RESULTS * (ABNORMAL) Blood cell count (CBC) (03/29/2016 1:57 PM [facility]) Pathologist [facility] WBC 8.7 3.8 - 9.9 K/cumm CDR HISTORICAL RESULTS RBC 4.50 3.90 - 5.20 M/cumm CDR HISTORICAL RESULTS Hgb 14.7 11.9 - 15.5 g/dl CDR HISTORICAL RESULTS Hct 43.9 35.6 - 45.5 % CDR HISTORICAL RESULTS MCV 97.6(H) 81.3 - 96.4 fl CDR HISTORICAL RESULTS MCH 32.7 27.1 - 33.3 pg CDR HISTORICAL RESULTS MCHC 33.5 32.3 - 35.7 g/dl CDR HISTORICAL RESULTS Rdw 12.4 11.1 - 14.9 % CDR HISTORICAL RESULTS RDW 44.4 35.7 - 48.1 fl CDR HISTORICAL RESULTS Platelets 208 150 - 400 K/cumm CDR HISTORICAL RESULTS MPV 9.5 9.1 - 12.3 fl CDR HISTORICAL RESULTS NRBC 0.0 0.0 - 0.2 % CDR HIST ORICAL RESULTS NRBC, abs 0.00 0.00 - 0.01 K/cumm CDR HISTORICAL RESULTS Blood specimen (specimen) 03/29/2016 1:57 PM [facility] Bebo Boland MD LAB BLOOD ORDERABLES Jarrell roberson Result Performing Organization Address [facility] de Phone Number CDR HISTORICAL RESULTS * Blood cell morphologic exam (03/29/2016 1:57 PM [facility]) Neutrophils 62.1 % CDR HIST ORICAL RESULTS Immature granulocytes 0.3 % CDR HISTORICAL RESULTS Lymphocytes 25.3 % CDR HIST ORICAL RESULTS Monos 8.9 % CDR HISTOR ICAL RESULTS Eosinophils 2.4 % CDR HIST ORICAL RESULTS Basophils 1.0 % CDR HISTOR ICAL RESULTS Neutrophils, abs 5.4 1.7 - 6.5 K/cumm CDR HISTORICAL RESULTS Immature granulocyte, abs 0.0 0.0 - 0.1 K/cumm CDR HISTORICAL RESULTS Lymphocytes, abs 2.2 0.8 - 3.3 K/cumm CDR HISTORICAL RESULTS Monocytes, absolute 0.8 0.2 - 0.8 K/cumm CDR HISTORICAL RESULTS Eosinophils, abs 0.2 0.0 - 0.5 K/cumm CDR HISTORICAL RESULTS Basophils, abs 0.1 0.0 - 0.1 K/cumm CDR HISTORICAL RESULTS Blood specimen (specimen) 03/29/2016 1:57 PM [facility] Bebo Boland MD LAB BLOOD ORDERABLES Jarrell roberson Result Performing Organization Address [facility] de Phone Number CDR HISTORICAL RESULTS * (ABNORMAL) Plasma comprehensive metabolic panel (03/04/2016 11:49 AM [facility]) Sodium 139 135 - 145 mmol/L CDR HISTORICAL RESULTS K, pl 4.5 3.3 - 4.9 mmol/L CDR HISTORICAL RESULTS CO2 28 22 - 32 mmol/L CDR HISTORICAL RESULTS BUN 18 8 - 25 mg/dl CDR HISTORICAL RESULTS Glucose 100 70 - 199 mg/dl CDR HISTORICAL RESULTS Creatinine 0.57(L) 0.60 - 1.10 mg/dl CDR HISTORICAL RESULTS Calcium 9.9 8.5 - 10.3 mg/dl CDR HISTORICAL RESULTS Chloride 99 97 - 110 mmol/L CDR HISTORICAL RESULTS Alb 4.1 3.5 - 5.0 g/dl CDR HISTORICAL RESULTS AST 19 10 - 45 Units/L CDR HISTORICAL RESULTS ALT 13 7 - 45 Units/L CDR HISTORICAL RESULTS Alk phos 100 40 - 130 Units/L CDR HISTORICAL RESULTS Bilirubin 0.5 0.1 - 1.2 mg/dl CDR HISTORICAL RESULTS Protein, pl 6.9 6.5 - 8.5 g/dl CDR HISTORICAL RESULTS A. gap 12 2 - 15 mmol/L CDR HISTORICAL RESULTS Plasma 03/04/2016 11:4 9 AM [facility] eBbo Boland MD LAB BLOOD ORDERABLES Fin al Result Performing Organization Address [facility] de Phone Number CDR HISTORICAL RESULTS * Plasma partial thromboplastin time (PTT) (03/04/2016 11:49 AM [facility]) APTT 28.3 25.0 - 37.0 seconds CDR HISTORICAL RESULTS Comment: Interpretive Data Therapeutic heparin range:60.0 - 94.0 sec based on correlation with therapeutic heparin activity range of 0.3 -0.7 Units/mL. Current interpretive data was last revised on 2011. Plasma 03/04/2016 11:4 9 AM [facility] Bebo Boland MD LAB BLOOD ORDERABLES Fin al Result Performing Organization Address [facility] de Phone Number CDR HISTORICAL RESULTS * Plasma prothrombin time (PT) (03/04/2016 11:49 AM [facility]) Prothrombin time (PT) 11.1 9.2 - 14.0 seconds CDR HISTORICAL RESULTS INR 0.97 0.81 - 1.22 CDR HIST ORICAL RESULTS Comment: Interpretive Data Inpatient therapeutic ranges* Atrial fibrillation ?2.0-3.0 INR Venous thrombo-embolism ?2.0-3.0 INR Bioprosthetic heart valve ?* Mechanical heart valve, bileaflet or tilting disk,aortic position ? 2.0-3.0 INR All other,or bileaflet or tilting disk, in mitral position ? 2.5-3.5 INR *See the pharmacy resource directory (PHRED) for an updated copy of the Tool Book at [email or web address] Current Interpretive Data was last revised 2011. Plasma 03/04/2016 11:4 9 AM [facility] Bebo Boland MD LAB BLOOD ORDERABLES Fin da Result Performing Organization Address City/[facility]/ZIP Co de Phone Number CDR HISTORICAL RESULTS * Serum Human Immunodeficiency virus (HIV) 1/2 ab + p24 ag (03/04/2016 11:49 AM [facility]) Pathologist [facility] HIV 1/2 ab p24 ag Nonreactive Nonreactive CDR HISTORICAL RESULTS Comment: Negative for HIV-1 antigen and HIV-1/ HIV-2 antibodies. ??No laboratory evidence of HIV infection. ??If acute HIV infection is suspected, consider testing for HIV-1 RNA. Serum 03/04/2016 11:4 9 AM [facility] Bebo Boland MD LAB BLOOD ORDERABLES Fin da Result Performing Organization Address [facility]/State/ZIP Co de Phone Number CDR HISTORICAL RESULTS * (ABNORMAL) Blood cell count (CBC) (03/04/2016 11:49 AM [facility]) WBC 8.2 3.8 - 9.9 K/cumm CDR HISTORICAL RESULTS RBC 4.26 3.90 - 5.20 M/cumm CDR HISTORICAL RESULTS Hgb 14.2 11.9 - 15.5 g/dl CDR HISTORICAL RESULTS Hct 42.7 35.6 - 45.5 % CDR HISTORICAL RESULTS MCV 100.2(H) 81.3 - 96.4 fl CDR HISTORICAL RESULTS MCH 33.3 27.1 - 33.3 pg CDR HISTORICAL RESULTS MCHC 33.3 32.3 - 35.7 g/dl CDR HISTORICAL RESULTS Rdw 12.2 11.1 - 14.9 % CDR HISTORICAL RESULTS RDW 45.0 35.7 - 48.1 fl CDR HISTORICAL RESULTS Platelets 263 150 - 400 K/cumm CDR HISTORICAL RESULTS MPV 9.3 9.1 - 12.3 fl CDR HISTORICAL RESULTS NRBC 0.0 0.0 - 0.2 % CDR HIST ORICAL RESULTS NRBC, abs 0.00 0.00 - 0.01 K/cumm CDR HISTORICAL RESULTS Blood specimen (specimen) 03/04/2016 11:49 AM [facility] Bebo Boland MD LAB BLOOD ORDERABLES Fin al Result Performing Organization Address City/[facility] Co de Phone Number CDR HISTORICAL RESULTS * (ABNORMAL) Blood cell morphologic exam (03/04/2016 11:49 AM [facility]) Neutrophils 57.4 % CDR HIST ORICAL RESULTS Immature granulocytes 0.2 % CDR HISTORICAL RESULTS Lymphocytes 29.8 % CDR HIST ORICAL RESULTS Monos 7.9 % CDR HISTOR ICAL RESULTS Eosinophils 3.4 % CDR HIST ORICAL RESULTS Basophils 1.3 % CDR HISTOR ICAL RESULTS Neutrophils, abs 4.7 1.7 - 6.5 K/cumm CDR HISTORICAL RESULTS Immature granulocyte, abs 0.0 0.0 - 0.1 K/cumm CDR HISTORICAL RESULTS Lymphocytes, abs 2.4 0.8 - 3.3 K/cumm CDR HISTORICAL RESULTS Monocytes, absolute 0.6 0.2 - 0.8 K/cumm CDR HISTORICAL RESULTS Eosinophils, abs 0.3 0.0 - 0.5 K/cumm CDR HISTORICAL RESULTS Basophils, abs 0.1(H) 0.0 - 0.1 K/cumm CDR HISTORICAL RESULTS Blood specimen (specimen) 03/04/2016 11:49 AM [facility] Bebo Boland MD LAB BLOOD ORDERABLES Fin al Result Performing Organization Address City/State/[facility] Co de Phone Number CDR HISTORICAL RESULTS * DISCHARGE LABORATORY CUMULATIVE REPORT (03/04/2016) Narrative 03/04/2016 Ordered by an unspecified provider. us Historical Provider LAB BLOOD ORDERABLES Rosemary l Result documented in this encounter Visit Diagnoses Diagnosis Malignant neoplasm of anus (CMS/HCC) (HCC) Malignant neoplasm of anus, unspecified site documented in this encounter
--- OUTSIDE RECORDS SUMMARY | 2024-02-28 09:04 | XMS_ITS | Encounter Summary ---
Author Organization [facility] Healthcare Address [address] [place] [address] Care Team Providers Care Retail Specialist Name Role Phone Heron Ricci DO Primary Care Provider [phone] Encounter Details Date Type Department Care Team (Latest Contact Info) Description 04/22/2016 1:45 PM PHARMACIST INTERN - 04/23/2016 6:15 PM PHARMACIST INTERN Hospital Encounter [facility] Emergency Department [address] [place] [address] Stuart Chin MD [address] [place] [address] Junaid Cano MD [address] [place] [address] Discharge Disposition: Discharge to home or self care Social History Tobacco Use Types Packs/Day Years Used Date Smoking Tobacco: Former Comments Unknown Sex and Gender Information Value Date Recorded Sex Assigned at Not on file Legal Sex Female 8:43 AM PHARMACIST INTERN Gender Identity Not on file Sexual Orientation Not on file documented as of this encounter Last Filed Vital Signs Vital Sign Reading Time Taken Comments Blood Pressure 150/72 04/23/2016 6:00 PM PHARMACIST INTERN Pulse 78 04/23/2016 6:00 PM PHARMACIST INTERN Temperature - - Respiratory Rate - - Oxygen Saturation 93% 04/23/2016 6:00 PM PHARMACIST INTERN Inhaled Oxygen Concentration - - Weight 81.6 kg (179 lb 15.7 oz) 017 10:30 PM PHARMACIST INTERN Height 160 cm (5' 3 ) 04/22/2016 10:30 PM PHARMACIST INTERN Body Mass Index 31.88 04/22/2016 10:30 PM PHARMACIST INTERN documented in this encounter Medications at Time of Discharge omega 3-swm-gnr-fish oil 300-1,000 mg capsule Take 1 capsule by mouth 2 (two) times a week 05/17/2012 [id number] 28-N-trqqicff 500 mg calcium- 400 unit-15 mcg tablet 05/17/2012 10/07/2017 documented as of this encounter Discharge Disposition Disposition Code Departure Means Destination Discharge to home or self care documented in this encounter Plan of Treatment Not on file documented as of this encounter Procedures Procedure Name Priority Date/Time Associated Diagnosis Comments URINALYSIS Routine 04/23/2016 10:26 AM PHARMACIST INTERN URINE PROTEIN Routine 04/23/2016 8:59 AM PHARMACIST INTERN URINE CREATININE Routine 04/23/2016 8:59 AM PHARMACIST INTERN SERUM TROPONIN I Routine 04/22/2016 5:05 PM PHARMACIST INTERN PLASMA BASIC METABOLIC PANEL Routine 04/22/2016 5:05 PM PHARMACIST INTERN BLOOD B-TYPE NATRIURETIC PEPTIDE (BNP) Routine 04/22/2016 2:38 PM PHARMACIST INTERN BLOOD CELL COUNT (CBC) Routine 04/22/2016 2:38 PM PHARMACIST INTERN BLOOD CELL MORPHOLOGIC EXAM Routine 04/22/2016 2:38 PM PHARMACIST INTERN documented in this encounter Results * Urinalysis (04/23/2016 10:26 AM PHARMACIST INTERN) Color, ur Straw Yellow CDR HISTOR ICAL RESULTS Clarity, ur Clear Clear CDR HIST ORICAL RESULTS Specific gravity, ur 1.009 1.003 - 1.030 CDR HISTORICAL RESULTS pH, ur 7.0 5.0 - 8.0 CDR HISTOR ICAL RESULTS Protein, ur Negative Trace CDR HIST ORICAL RESULTS Glucose, ur Negative Negative CDR HIST ORICAL RESULTS Ketones, ur Negative Negative CDR HIST ORICAL RESULTS Bilirubin, ur Negative Negative CDR HI STORICAL RESULTS U Blood Negative Negative CDR HISTOR ICAL RESULTS Urobilinogen, quant, ur <2.0 <2.0 mg/dl CDR HISTORICAL RESULTS Nitrites, ur Negative Negative CDR HIS TORICAL RESULTS Leukocyte esterase, ur Negative Negative CDR HISTORICAL RESULTS Urine 04/23/2016 10:2 6 AM PHARMACIST INTERN Talon Garcia MD LAB BLOOD ORDERABLES Fi nal Result Performing Organization Address [facility] de Phone Number CDR HISTORICAL RESULTS * Urine protein (04/23/2016 8:59 AM PHARMACIST INTERN) Protein, ur, quant 17.0 mg/dl CDR HISTORICAL RESULTS Urine 04/23/2016 8:59 AM PHARMACIST INTERN Talon Garcia MD LAB BLOOD ORDERABLES Fi nal Result Performing Organization Address [facility] Phone Number CDR HISTORICAL RESULTS * Urine creatinine (04/23/2016 8:59 AM PHARMACIST INTERN) Creatinine, ur 117 mg/dl CDR H ISTORICAL RESULTS Urine 04/23/2016 8:59 AM PHARMACIST INTERN Talon Garcia MD LAB BLOOD ORDERABLES Fi nal Result Performing Organization Address [facility] Phone Number CDR HISTORICAL RESULTS * (ABNORMAL) Plasma basic metabolic panel (04/22/2016 5:05 PM PHARMACIST INTERN) K, pl 4.9 3.3 - 4.9 mmol/L CDR HISTORICAL RESULTS Sodium 133(L) 135 - 145 mmol/L CDR HISTORICAL RESULTS Chloride 93(L) 97 - 110 mmol/L CDR HISTORICAL RESULTS CO2 24 22 - 32 mmol/L CDR HISTORICAL RESULTS BUN 27(H) 8 - 25 mg/dl CDR HISTORICAL RESULTS Glucose 96 70 - 199 mg/dl CDR HISTORICAL RESULTS Creatinine 0.61 0.60 - 1.10 mg/dl CDR HISTORICAL RESULTS Calcium 9.4 8.5 - 10.3 mg/dl CDR HISTORICAL RESULTS A. gap 16(H) 2 - 15 mmol/L CDR HISTORICAL RESULTS Plasma 04/22/2016 5:05 PM PHARMACIST INTERN Jim Hernandez MD LAB BLOOD ORDERABLES Final Result Performing Organization Address City/State/[facility] Co de Phone Number CDR HISTORICAL RESULTS * Serum troponin I (04/22/2016 5:05 PM PHARMACIST INTERN) Troponin I <0.03 0.00 - 0.03 ng/ml CDR HISTORICAL RESULTS Comment: Interpretive Data Serial determinations are recommended for the diagnosis of myocardial infarction (Third [place] Definition of Myocardial Infarction. ??J Am Hilary Cardiol 2012;60:1581-98). Current interpretive data was last revised on 13. Serum 04/22/2016 5:05 PM PHARMACIST INTERN Jim Hernandez MD LAB BLOOD ORDERABLES Final Result Performing Organization Address [facility] Co de Phone Number CDR HISTORICAL RESULTS * (ABNORMAL) Blood cell count (CBC) (04/22/2016 2:38 PM PHARMACIST INTERN) WBC 5.1 3.8 - 9.9 K/cumm CDR HISTORICAL RESULTS NRBC, abs 0.02(H) 0.00 - 0.01 K/cumm CDR HISTORICAL RESULTS RBC 3.54(L) 3.90 - 5.20 M/cumm CDR HISTORICAL RESULTS Hgb 11.8(L) 11.9 - 15.5 g/dl CDR HISTORICAL RESULTS Hct 36.1 35.6 - 45.5 % CDR HISTORICAL RESULTS MCV 102.0(H) 81.3 - 96.4 fl CDR HISTORICAL RESULTS MCH 33.3 27.1 - 33.3 pg CDR HISTORICAL RESULTS MCHC 32.7 32.3 - 35.7 g/dl CDR HISTORICAL RESULTS Rdw 14.6 11.1 - 14.9 % CDR HISTORICAL RESULTS RDW 47.5 35.7 - 48.1 fl CDR HISTORICAL RESULTS Platelets 127(L) 150 - 400 K/cumm CDR HISTORICAL RESULTS MPV 9.2 9.1 - 12.3 fl CDR HISTORICAL RESULTS NRBC 0.4(H) 0.0 - 0.2 % CDR HIST ORICAL RESULTS Blood specimen (specimen) 04/22/2016 2:38 PM PHARMACIST INTERN Result [facility] Jim Hernandez MD LAB BLOOD ORDERABLES Final Result Performing Organization Address [facility] Co de Phone Number CDR HISTORICAL RESULTS * (ABNORMAL) Blood cell morphologic exam (04/22/2016 2:38 PM PHARMACIST INTERN) Neutrophils 81.8 % CDR HIST ORICAL RESULTS Immature granulocytes 0.6 % CDR HISTORICAL RESULTS Lymphocytes 9.1 % CDR HIST ORICAL RESULTS Monos 8.1 % CDR HISTOR ICAL RESULTS Eosinophils 0.0 % CDR HIST ORICAL RESULTS Basophils 0.4 % CDR HISTOR ICAL RESULTS Neutrophils, abs 4.1 1.7 - 6.5 K/cumm CDR HISTORICAL RESULTS Immature granulocyte, abs 0.0 0.0 - 0.1 K/cumm CDR HISTORICAL RESULTS Lymphocytes, abs 0.5(L) 0.8 - 3.3 K/cumm CDR HISTORICAL RESULTS Monocytes, absolute 0.4 0.2 - 0.8 K/cumm CDR HISTORICAL RESULTS Eosinophils, abs 0.0 0.0 - 0.5 K/cumm CDR HISTORICAL RESULTS Basophils, abs 0.0 0.0 - 0.1 K/cumm CDR HISTORICAL RESULTS Blood specimen (specimen) 04/22/2016 2:38 PM PHARMACIST INTERN Result [facility] Jim Hernandez MD LAB BLOOD ORDERABLES Final Result Performing Organization Address [facility] Co de Phone Number CDR HISTORICAL RESULTS * Blood B-type natriuretic peptide (BNP) (04/22/2016 2:38 PM PHARMACIST INTERN) BNP 95 0 - 100 pg/ml CDR HISTORICAL RESULTS Blood specimen (specimen) 04/22/2016 2:38 PM PHARMACIST INTERN Result [facility] Jim Hernandez MD LAB BLOOD ORDERABLES Final Result Performing Organization Address [facility] Co de Phone Number CDR HISTORICAL RESULTS documented in this encounter Visit Diagnoses Not on filedocumented in this encounter Care Teams Retail Specialist Relationship Specialty Start Date End Date Heron Ricci, DO PCP - General 04/19/16 documented as of this encounter
== END 2024-02-21 08:32 | disposition home or self-care (01) ==
LOC: ANHGOSHLAB 08:31
PROVIDERS: PCP Internal Medicine; Visit Provider Clinical Nurse Specialist
DX: I51.7 Cardiomegaly (principal); R79.89 Other specified abnormal findings of blood chemistry; E87.6 Hypokalemia
CPT/HCPCS: 36415; 80048; 84443

== ENCOUNTER 2024-03-01 12:32 | Outpatient (CLI) | payer MEDICARE, SELFPAY ==
[2024-03-01 19:57] LABS: Anion Gap 4 mmol/L (4-12); Blood Urea Nitrogen 24 mg/dL (7-17); Calcium 9.4 mg/dL (8.4-10.2); Carbon Dioxide 30 mmol/L (22-30); Chloride 104 mmol/L (98-107); Estimated Glomerular Filt Rate > 60; Glucose 97 mg/dL (65-110); Potassium 4.3 mmol/L (3.4-5.0); Sodium 138 mmol/L (137-145)
== END 2024-03-01 12:33 | disposition home or self-care (01) ==
LOC: ANHGOSHLAB 12:34
PROVIDERS: PCP Internal Medicine; Visit Provider Clinical Nurse Specialist
DX: E87.6 Hypokalemia (principal); I10 Essential (primary) hypertension; R79.89 Other specified abnormal findings of blood chemistry
CPT/HCPCS: 36415; 80048; 84443

== ENCOUNTER 2024-03-27 08:29 | Outpatient (CLI) | payer MEDICARE, SELFPAY ==
--- NOTE | ~2024-03-27 | XR_ITS ---
Clinical Indication: Dyspnea PA and lateral views of the chest: Comparison: None Findings: Small right pleural effusion present. Left lung clear. Impression: Small right pleural effusion. Reviewed, dictated and finalized at [facility]. ICAL SCIENTIST Impression: Small right pleural effusion.
== END 2024-03-27 08:30 | disposition home or self-care (01) ==
LOC: GOSHIMG 08:30
PROVIDERS: PCP Internal Medicine Cardiovascular Disease; Visit Provider Internal Medicine
DX: R06.09 Other forms of dyspnea (principal); J90 Pleural effusion, not elsewhere classified
CPT/HCPCS: 71046

== ENCOUNTER 2024-04-12 08:21 | Outpatient (CLI) | payer MEDICARE, SELFPAY ==
--- OUTSIDE RECORDS SUMMARY | 2024-04-12 08:25 | XMS_ITS ---
Author Organization [facility] Address [address] [place] [address] Care Team Providers Care Double End Production Grinder Name Role Phone Heron Ricci DO Primary Care Provider [phone]- [phone] Talon Steele MD Unavailable [phone] Active Problems Problem Noted Date Diagnosed Date [...] treatments are documented for this patient in [facility]. Treatments may have been administered in another system. 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
--- OUTSIDE RECORDS SUMMARY | 2024-04-12 08:26 | XMS_ITS | Patient Health Summary ---
Author Organization [facility] Address [address] [place] [address] Care Team Providers Care Note Keeper Name Role Phone Heron Ricci DO Primary Care Provider [phone] Note from [facility],non-owned Affiliates and Associated Physician Practices is amultiple site organization consisting of ambulatory clinics and hospital sitesin [place], [place], [place] and [place]. This disclosure is being madepursuant to the Care Everywhere program and may not contain all information available regarding this patient. Last updated 17.[facility] Allergies * Codeine(Nausea and/or Vomiting) -Low Criticality [...] by mouth Two times a week * [place]-3 1000 MG Take by mouth Two times [...] of breath 05/17/2012 11/16/2022 Immunizations * Covid IOCS primary monovalent 12+ yr 0.3mL Purple cap(Given 04/14/2020, 03/31/2020) * FLU VACCINE QUAD IIV4 SPLIT 0.25 ML IM(Given 01/01/2016) * FLU VACCINE TRI IIV3 SPLIT PF IM (FLUVIRIN)(Given 12/21/2014) * INFLUENZA VACCINE(Given 11/29/2015) * INFLUENZA VACCINE, HIGH-DOSE, QUADR. (FLUZONE [...] 77 11/16/2022 8:31 AM CDT Temperature 36.7 C (98 F) 11/16/2022 8:31 AM CDT Respiratory Rate - [...] See Scanned Report 07/30/2022 12:31 PM CDT [facility] Blood BLOOD SPECIMEN / Unknown Lab Venipuncture / Unknown 07/06/2022 2:51 PM CDT 07/06/2022 3:18 PM CDT Catarino Quick MD LAB - CHEMISTRY [facility] [phone] * CK BLOOD (07/06/2022 2:51 PM CDT) CK Total 71 30 - 200 U/L 07/06/2022 3:47 PM CDT [facility] Blood BLOOD SPECIMEN / Unknown Lab Venipuncture / Unknown 07/06/2022 2:51 PM CDT 07/06/2022 3:19 PM CDT Catarino Quick MD LAB - CHEMISTRY [facility] [address] [place] [id number], [facility] [phone] Care Teams Note Keeper Relationship Specialty Start Date End Date Heron Ricci DO PCP - General 07/06/22
--- OUTSIDE RECORDS SUMMARY | 2024-04-12 08:26 | XMS_ITS | Referral Summary ---
Author Organization [facility] Address [address] [place] [address] Care Team Providers Care Lining Repairer Name Role Phone Heron Ricci DO Primary Care Provider [phone] Talon Steele MD Unavailable [phone] Encounters Date Type Department Care Team Description 02/15/2024 Telephone [facility] Cardiology [address] [place] [phone] Brown Mcdaniel MD Test Results 02/08/2024 3:20 PM TOE SEWER - 02/08/2024 11:59 PM TOE SEWER Hospital Encounter [facility] ([facility]) [address] [place] [address] Abnormal computed tomography angiography (CTA); Coronary artery disease involving mak[place] heart, unspecified vessel or lesion type, unspecified whether angina present; Shortness of breath; LV dysfunction; Abnormal findings on diagnostic imaging of heart and coronary circulation Discharge Disposition: Discharge to home or self care 02/08/2024 Telephone [facility] [address] [place] [phone] Brown Mcdaniel MD 02/08/2024 11:32 AM TOE SEWER - 02/08/2024 11:59 PM TOE SEWER Hospital Encounter [facility] ([facility]) [address] [place] [address] LV dysfunction; Abnormal nuclear stress test; FELTON (dyspnea on exertion) Discharge Disposition: Discharge to home or self care 01/13/2024 Telephone [facility] Cardiology [address] [place] [phone] Brown Mcdaniel MD 01/11/2024 1:30 PM TOE SEWER Office Visit [facility] Cardiology [address] [place] [phone] Brown Mcdaniel MD LV dysfunction (Primary Dx); Abnormal nuclear stress test; FELTON (dyspnea on exertion); Primary hypertension; History of anal cancer; History of tobacco abuse from Last 3 Months Allergies Active Allergy Reactions Criticality Noted Date Comments Codeine Nausea only,Nausea A nd Vomiting 12/04/2008 Reaction: NAUSEA, Sulfa (Sulfonamide Antibiotics) Anaphylaxis High Medications naproxen (ALEVE) 220 mg tablet Take 1 tablet (220 mg total) by mouth every 12 (twelve) hours as needed Active omega 5-wdh-dpq-fish oil 300-1,000 mg capsule Take 1 capsule [...] mouth 2 (two) times a week Active tdej-nsb-jod G-KO-jkdv-diet 29 125 mg-37.5 mg- 500 mcg-1.25mg capsule [...] of anal cancer 11/01/[address] ([facility]) 11/01/2017 Other specified counseling 10/07/2017 History of rectal cancer 09/29/2016 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 Shortness of breath 05/17/2012 Acute postoperative abdominal pain S/P exploratory laparotomy Resolved Problems Problem Noted Date Diagnosed Date Resolved Date Anal cancer ([facility]/HCC) 08/16/20172018 Overview (08/16/2017): Added automatically from request for surgery [id number] Immunizations Name Administration Dates Next Due Influenza, [...] on file Legal Sex Female 8:43 AM TOE SEWER Gender Identity Not on file Sexual Orientation Not on file Last Filed Vital Signs Vital Sign Reading Time Taken Comments Blood Pressure 124/60 02/08/2024 12:10 PM TOE SEWER Pulse 61 02/08/2024 12:10 PM TOE SEWER Temperature 36.4 C (97.6 F) 11/01/2023 9:06 AM CDT Respiratory Rate 16 05/04/2022 8:26 AM TOE SEWER Oxygen Saturation 93% 01/11/2024 1:22 PM TOE SEWER Inhaled Oxygen Concentration - - Weight 73.5 kg (162 lb) 01/11/2024 1:22 PM TOE SEWER Height 157.5 cm (5' 2 ) 01/11/2024 1:22 PM TOE SEWER Body Mass Index 29.63 01/11/2024 1:22 PM TOE SEWER Plan of Treatment Not on file Procedures Procedure Name Priority Date/Time Associated Diagnosis Comments CT CORONARY FRACTIONAL FLOW RESERVE Schedule Routine, Read Routine (OP Routine) 02/09/2024 9:56 AM TOE SEWER Abnormal computed tomography angiography (CTA) Coronary artery disease involving makah heart, unspecified vessel or lesion type, unspecified whether angina present Shortness of breath LV dysfunction Abnormal findings on diagnostic imaging of heart and coronary circulation CT HEART MORPHOLOGY AND CORONARY ARTERIES W CONTRAST Schedule Routine, Read Routine (OP Routine) 02/08/2024 12:45 PM TOE SEWER LV dysfunction Abnormal nuclear stress test FELTON (dyspnea on exertion) POCT CREATININE - DEVICE Routine 02/08/2024 12:21 PM TOE SEWER from Last 3 Months Results * CT Coronary Fractional Flow [place] (02/09/2024 9:56 AM TOE SEWER) Anatomical Region Laterality Modality Chest N/A Computed Tomogra phy 02/09/2024 10:5 7 AM TOE SEWER Impressions 02/13/2024 9:43 AM TOE SEWER ADDENDUM: Coronary CTA Fractional Flow [place] (FFR) The below FFR CT results are [...] 02/13/2024 IMPRESSION: ADDENDUM: Coronary CTA Fractional Flow [place] (FFR) The below FFR CT results are [...] MD IMG CT PROCEDURES Final Result * CTA Heart and Coronary Arteries W Morphology when Performed (02/08/2024 12:45 PM TOE SEWER) Anatomical Region Laterality Modality Chest N/A Computed Tomogra phy 02/08/2024 1:08 PM TOE SEWER Impressions 02/08/2024 1:08 PM TOE SEWER Severe coronary calcification with a calcium score [...] Justin Penny M.D. Narrative 02/08/2024 1:08 PM TOE SEWER Examination: CT coronary angiogram with and without [...] Mcdaniel MD IM CT PROCEDURES Final Result * (ABNORMAL) POCT creatinine (02/08/2024 12:21 PM TOE SEWER) Creatinine POC 0.5(L) 0.6 - 1.1 mg/dL Blood 02/08/2024 12:2 1 PM TOE SEWER 02/08/2024 12:21 PM TOE SEWER Heron Ricci DO LAB POCT ORDERABLES - FOSTER CE Final Result [facility] Department [place] [address] from Last 3 Months Insurance AETNA MEDICARE GOLD [facility] AETNA MEDICARE GOLD Advance Directives For more information, please contact: [phone] Documents on File Type Date Recorded Patient Electronics Technician Expl anation Power of Mine Safety Director 05/04/2022 9:07 AM ADVANCE DIRECTIVE 10/25/2017 7:00 AM POWER OF FILM EDITOR SUPERVISOR * Full Code (Latest Code Status on File) Date Activated Date Inactivated Comments 10/17/2017 6:14 PM 10/21/2017 6:11 PM Care Teams Lining Repairer Relationship Specialty Start Date End Date Heron Ricci DO PCP - General 04/19/16 Talon Steele MD [phone] [place] [address] Surgeon Colon and Rectal Surgery 08/07/21
--- OUTSIDE RECORDS SUMMARY | 2024-04-12 08:26 | XMS_ITS | Clinical Summary ---
Author Organization [facility] Address [address] [address] Care Team Providers Care Internist Name Role Phone Heron Ricci DO Primary Care Provider [phone] Source Comments [facility],non-owned Affiliates and Associated Physician Practices is amultiple site organization consisting of ambulatory clinics and hospital sitesin [place], [place] and [place]. This disclosure is being madepursuant to the Care Everywhere program and may not contain all information available regarding this patient. Last updated 17.[facility] [employer] Allergies Active Allergy Reactions Criticality Noted Date [...] by mouth Two times a week Active [place]-3 1000 MG Take by mouth Two times [...] Immunizations Name Administration Dates Next Due Thalia Physcient primary monoval ent 12+ yr 0.3mL Purple cap 04/14/2020,03/31/2020 FLU VACCINE QUAD IIV4 SPLIT 0.25 ML IM 6 FLU VACCINE TRI IIV3 SPLIT PF IM (FLUVIRIN) 11/29 INFLUENZA VACCINE 11/29/2015 INFLUENZA VACCINE, HIGH-DOSE , QUADR. (FLUZONE [...] VACCINE (1 of 2) 2001 PNEUMOCOCCAL VACCINE 50+ (2 of 2 - PPSV23) 12/02/2019 12/01/2018 COVID-19 VACCINE (3 season) 2023 04/14/2020, 03/31/2020 INFLUENZA VACCINE (#1) 2023 9, 11/27/2017, 11/12/2016, Additional history exists DEPRESSION SCREENING 02/29/2024 MEDICARE AWV CALENDAR YEAR 2024 Respiratory Syncytial Virus (RSV) Vaccine Pt: or [...] patient's age to complete this topic MENINGOCOCCAL (Group B) VACCINE Aged Out No longer eligible based on patient's age to complete this topic MENINGOCOCCAL VACCINE Aged Out No carissa kira eligible based on patient's age to complete this topic Care Teams Internist Relationship Specialty Start Date End Date Heron Ricci DO PCP - General 07/06/22
--- OUTSIDE RECORDS SUMMARY | 2024-04-12 08:26 | XMS_ITS | Clinical Summary ---
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 ENGINEER Gender Identity Not on file Sexual Orientation Not on file Occupation Industry Job Start Date Job End Date Not on file Not on file Not on file Not on file Last Filed Vital Signs [...] Flex Sig/CT Colonography Q 5 years 1996 PNEUMOCOCCAL VACCINE 65+ YEA RS (1 of 1 - PCV) 2001 ZOSTER VACCINE (1 of 2) 2001 BREAST CANCER SCREENING 11/21/2009 11/21/2008, 11/14 OSTEOPOROSIS SCREENING 2016 INFLUENZA VACCINE (#1) 2023 RSV VACCINE (60+ or ) (1 - 1-dose 75+ series) 2026 Procedures Procedure Name Priority Date/Time Associated Diagnosis Comments MAMMO DIAGNOSTIC BILATERAL W OR WO CAD Routine 11/21/2008 from Last 3 Months or Most Recently Relevant to Health Maintenance Results * MAMMO DIGITAL DIAG BILAT (11/21/2008) Anatomical Region Laterality Modality Breast Bilateral Other Heron Ricci DO MAMMO ORDERABLES Final Result from Last 3 Months or Most Recently Relevant to Health Maintenance Insurance [employer] BLUE ACCESS/TRUE BLUE PPO [employer] BL[employer] ACCESS/TRUE BLUE PPO Care Teams Service Technician Copier Relationship Specialty Start Date End Date Heron Ricci DO PCP - General 02/13/15
--- OUTSIDE RECORDS SUMMARY | 2024-04-12 08:26 | XMS_ITS | Referral Summary ---
Author Organization [facility] Address [address] [place] [address] Care Team Providers Care Inside Sales Advertising Executive Name Role Phone Heron Ricci DO Primary Care Provider [phone] Source Comments [facility],non-owned Affiliates and Associated Physician Practices is amultiple site organization consisting of ambulatory clinics and hospital sitesin [place], [place], [place] and [place]. This disclosure is being madepursuant to the Care Everywhere program and may not contain all information available regarding this patient. Last updated 17.[facility] Allergies Active Allergy Reactions Criticality Noted Date [...] by mouth Two times a week Active [place]-3 1000 MG Take by mouth Two times [...] Immunizations Name Administration Dates Next Due Thalia [employer] primary monoval ent 12+ yr 0.3mL Purple [...] of Treatment Not on file Care Teams Inside Sales Advertising Executive Relationship Specialty Start Date End Date Heron Ricci DO PCP - General 07/06/22
--- OUTSIDE RECORDS SUMMARY | 2024-04-12 08:26 | XMS_ITS | Clinical Summary ---
Author Organization [facility] Address [address] [place] [address] Care Team Providers Care Data Integrity Specialist Name Role Phone Heron Ricci DO Primary Care Provider [phone] Talon Steele MD Unavailable [phone] Allergies Active Allergy Reactions Criticality Noted Date Comments Codeine Nausea only,Nausea A nd Vomiting 12/04/2008 Reaction: NAUSEA, Sulfa (Sulfonamide Antibiotics) Anaphylaxis High Medications naproxen (ALEVE) 220 mg tablet Take 1 tablet (220 mg total) by mouth every 12 (twelve) hours as needed Active omega 6-igq-hpt-fish oil 300-1,000 mg capsule Take 1 capsule [...] mouth 2 (two) times a week Active gykp-rnb-rmm B-SN-sspp-diet 29 125 mg-37.5 mg- 500 mcg-1.25mg capsule [...] (08/16/2017): Added automatically from request for surgery [id number] Encounters Date Type Department Care Team Description 02/15/2024 Telephone [facility] Cardiology [address] [place] [address] [address] [place] [phone] Brown Mcdaniel MD Test Results 02/08/2024 3:20 PM PEOPLESOFT ADMINISTRATOR - 02/08/2024 11:59 PM PEOPLESOFT ADMINISTRATOR Hospital Encounter [facility] ([facility]) [address] [place] [address] Abnormal computed tomography angiography (CTA); Coronary artery disease involving [place] heart, unspecified vessel or lesion type, unspecified whether angina present; Shortness of breath; LV dysfunction; Abnormal findings on diagnostic imaging of heart and coronary circulation Discharge Disposition: Discharge to home or self care 02/08/2024 11:32 AM PEOPLESOFT ADMINISTRATOR - 02/08/2024 11:59 PM PEOPLESOFT ADMINISTRATOR Hospital Encounter [facility] ([facility]) [address] [place] [phone] LV dysfunction; Abnormal nuclear stress test; FELTON (dyspnea on exertion) Discharge Disposition: Discharge to home or self care 02/08/2024 Telephone [facility] Cardiology [address] [place] [address] [place] [phone] Brown Mcdaniel MD 01/13/2024 Telephone [facility] Cardiology [address] [place] [address] [place] [phone] Brown Mcdaniel MD 01/11/2024 1:30 PM PEOPLESOFT ADMINISTRATOR Office Visit [facility] Cardiology [address] [place] [address] [place] [phone] Brown Mcdaniel MD LV dysfunction (Primary Dx); Abnormal nuclear stress test; FELTON (dyspnea on exertion); Primary hypertension; History of anal cancer; History of tobacco abuse from Last 3 Months Immunizations Name Administration [...] by TW Conv) INTRACRANIAL ANEURYSM REPAIR coiling 2006 EXAMINATION UNDER ANESTHESIA 12/23/2016 EUA with biopsy [...] on file Legal Sex Female 8:43 AM PEOPLESOFT ADMINISTRATOR Gender Identity Not on file Sexual Orientation Not on file Obstetrics History Last Filed Vital Signs Vital Sign Reading Time Taken Comments Blood Pressure 124/60 02/08/2024 12:10 PM PEOPLESOFT ADMINISTRATOR Pulse 61 02/08/2024 12:10 PM PEOPLESOFT ADMINISTRATOR Temperature 36.4 C (97.6 F) 11/01/2023 9:06 AM CDT Respiratory Rate 16 05/04/2022 8:26 AM PEOPLESOFT ADMINISTRATOR Oxygen Saturation 93% 01/11/2024 1:22 PM PEOPLESOFT ADMINISTRATOR Inhaled Oxygen Concentration - - Weight 73.5 kg (162 lb) 01/11/2024 1:22 PM PEOPLESOFT ADMINISTRATOR Height 157.5 cm (5' 2 ) 01/11/2024 1:22 PM PEOPLESOFT ADMINISTRATOR Body Mass Index 29.63 01/11/2024 1:22 PM PEOPLESOFT ADMINISTRATOR Plan of Treatment Health Maintenance Due Date [...] Read Routine (OP Routine) 02/09/2024 9:56 AM PEOPLESOFT ADMINISTRATOR Abnormal computed tomography angiography (CTA) Coronary artery disease involving [place] heart, unspecified vessel or lesion type, unspecified whether angina present Shortness of breath LV dysfunction Abnormal findings on diagnostic imaging of heart and coronary circulation CT HEART MORPHOLOGY AND CORONARY ARTERIES W CONTRAST Schedule Routine, Read Routine (OP Routine) 02/08/2024 12:45 PM PEOPLESOFT ADMINISTRATOR LV dysfunction Abnormal nuclear stress test FELTON (dyspnea on exertion) POCT CREATININE - DEVICE Routine 02/08/2024 12:21 PM PEOPLESOFT ADMINISTRATOR from Last 3 Months Results * CT Coronary Fractional Flow [place] (02/09/2024 9:56 AM PEOPLESOFT ADMINISTRATOR) Anatomical Region Laterality Modality Chest N/A Computed Tomogra phy 02/09/2024 10:5 7 AM PEOPLESOFT ADMINISTRATOR Impressions 02/13/2024 9:43 AM PEOPLESOFT ADMINISTRATOR ADDENDUM: Coronary CTA Fractional Flow [place] (FFR) The below FFR CT results are [...] 02/13/2024 IMPRESSION: ADDENDUM: Coronary CTA Fractional Flow [place] (FFR) The below FFR CT results are [...] signed by: Raul Calvillo M.D. us Brown Koul MD IMG CT PROCEDURES Final Result * CTA Heart and Coronary Arteries W Morphology when Performed (02/08/2024 12:45 PM PEOPLESOFT ADMINISTRATOR) Anatomical Region Laterality Modality Chest N/A Computed Tomogra phy 02/08/2024 1:08 PM PEOPLESOFT ADMINISTRATOR Impressions 02/08/2024 1:08 PM PEOPLESOFT ADMINISTRATOR Severe coronary calcification with a calcium score [...] Justin Penny M.D. Narrative 02/08/2024 1:08 PM PEOPLESOFT ADMINISTRATOR Examination: CT coronary angiogram with and without [...] by: Justin Penny M.D. Brown Mcdaniel MD [facility] [place]ED[place] Final Result * (ABNORMAL) POCT creatinine (02/08/2024 12:21 PM PEOPLESOFT ADMINISTRATOR) Creatinine POC 0.5(L) 0.6 - 1.1 mg/dL Blood 02/08/2024 12:2 1 PM PEOPLESOFT ADMINISTRATOR 02/08/2024 12:21 PM PEOPLESOFT ADMINISTRATOR Heron Ricci DO LAB POCT ORDERABLES - FOSTER CE Final Result Performing Organization Address City/State/[facility] Co de Phone Number [facility] Department [place] [address] from Last 3 Months Insurance AETNA MEDICARE GOLD [facility] AETNA MEDICARE GOLD Advance Directives For more information, please contact: [phone] Documents on File Type Date Recorded Patient Senior Accountant Cpa Expl anation Power of Educational Program Assistant 05/04/2022 9:07 AM ADVANCE DIRECTIVE 10/25/2017 7:00 AM POWER OF CAMPUS RECRUITING INTERN * Full Code (Latest Code Status on File) Date Activated Date Inactivated Comments 10/17/2017 6:14 PM 10/21/2017 6:11 PM Care Teams Data Integrity Specialist Relationship Specialty Start Date End Date Heron Ricci DO PCP - General 04/19/16 Talon Steele MD [phone] [place] [address] Surgeon Colon and Rectal Surgery 08/07/21
--- NOTE | 2024-04-12 16:08 | WPDSIXMINUTE ---
Six Minute Walk Procedure Procedure Performed Pulmonary Stress Test (6 min walk) Six Minute Walk Six Minute Walk: This is a 6 minute walk test. The test was performed and interpreted in accordance with the 2014 ERS/ATS task force guidelines. Findings: The patient's resting room air oxygen saturation measured by pulse oximetry was 97%, the heart rate was 73 bpm, and the modified Renea dyspnea score was 3. Patient ambulated for 244 meters and oxygen saturation remained 91 to 93%. At the end of the study the heart rate was 114 bpm and the modified Renea dyspnea score was 4. The patient did not qualify for supplemental oxygen at rest or with ambulation. There are no prior studies for comparison.
== END 2024-04-12 08:22 | disposition home or self-care (01) ==
PROVIDERS: PCP Internal Medicine Cardiovascular Disease; Visit Provider Internal Medicine
DX: J44.9 Chronic obstructive pulmonary disease, unspecified (principal)
CPT/HCPCS: 94618

== ENCOUNTER 2024-07-12 08:35 | Outpatient (CLI) | payer MEDICARE, SELFPAY ==
--- NOTE | ~2024-07-12 | CT_ITS ---
CT Scan of the Chest without Contrast: Clinical Indication: COPD Technique: Contiguous sections were acquired throughout the chest without intravenous contrast. Dose reduction technique was used on this scan by utilizing automated exposure control and iterative recon struction technique. The dose-length product (DLP) was 146.76 mGy-cm. Findings: There is no evidence of any significant mediastinal, hilar or axillary lymphadenopathy. There are ext ensive atherosclerotic calcifications of the aorta and coronary arteries. There is no evidence of pleural or pericardial effusion. There is minimal biapical emphysema/interstitial change. Images through the upper abdomen reveal moderate to severe right hydronephrosis. Cholelithiasis noted . There is elevation of the right hemidiaphragm. Impression: Minimal biapical emphysema/interstitial change. Moderate to severe right hydronephrosis, partially imaged. Reviewed, dictated and finalized at location . Impression: Minimal biapical emphysema/interstitial change. Moderate to severe right hydronephrosis, partially imaged.
--- OUTSIDE RECORDS SUMMARY | 2024-07-12 08:39 | XMS_ITS | Referral Summary ---
Author Organization [facility] Address [address] [place] [address] Care Team Providers Care Transfer Driver Name Role Phone Heron Ricci DO Primary Care Provider [phone] Talon Steele MD Unavailable [phone] Encounters Date Type Department Care Team Description 05/16/2024 Orders Only [facility] Medical Group Cardiology [address] [place] [phone] Brown Mcdaniel MD 05/16/2024 2:30 PM CDT Office Visit [facility] Medical [facility] Cardiology [address] [facility] [address] [place] [address] Brown Mcdaniel MD Coronary artery disease of [place] artery of [place] heart with stable angina pectoris (Primary Dx); LV dysfunction; Primary hypertension; FELTON (dyspnea on exertion); Restrictive lung disease; History of tobacco abuse from Last 3 Months Allergies Active Allergy Reactions Criticality Noted Date Comments Codeine Nausea only,Nausea A nd Vomiting 12/04/2008 Reaction: NAUSEA, Sulfa (Sulfonamide Antibiotics) Anaphylaxis High Medications naproxen (ALEVE) 220 mg tablet Take 1 tablet (220 mg total) by mouth every 12 (twelve) hours as needed Active vitamin E 400 unit capsule Take 1 capsule (400 Units total) by mouth 2 (two) times a week Active multivitamin capsule Take 1 capsule by mouth 2 (two) times a week Active VENTOLIN HFA 90 mcg/actuation inhaler Inhale 2 puffs as needed 8 Active nystatin powder Apply to affected area with pouch changes 30 g 1 8 Active cholecalciferol (VITAMIN D-3) 1,000 unit capsule Take [...] mouth 2 (two) times a week Active ahut-ula-uui E-IW-oouj-diet 29 125 mg-37.5 mg- 500 mcg-1.25mg capsule Take by mouth 2 (two) times a day Active meloxicam (MOBIC) 15 mg tablet 1 Active oxyBUTYnin XL (DITROPAN-XL) 10 mg 24 hr tablet Take 1 tablet (10 mg total) by mouth daily Active fluticasone furoate-vilanter oL (BREO ELLIPTA) 100-25 mcg/dose [...] mg total) by mouth daily 30 tablet 4 01/11/20 25 Active sacubitriL-valsa rtan (ENTRESTO) 97-103 mg tabletIndication s:chronic heart failure Take 1 tablet by mouth 2 (two) times a day 60 tablet 4 Active dapagliflozin propanediol (FARXIGA) 10 mg tablet Take 1 tablet (10 mg total) by mouth daily 30 tablet 11 5 Active Active Problems Problem Noted Date Diagnosed Date Colostomy care 11/17/2017 HTN (hypertension) 11/11/2017 History of anal cancer 11/01/[address] 11/01/2017 Other specified counseling 10/07/2017 History of rectal cancer 09/29/2016 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 Shortness of breath 05/17/2012 Acute postoperative abdominal pain S/P exploratory laparotomy Resolved Problems Problem Noted Date Diagnosed Date Resolved Date Anal cancer 08/16/2017 05/09/2018 Overview (08/16/2017): Added automatically from request for surgery [id number] Immunizations Immunization Administration Dates Next Due Influenza, Quadrivalent, Spl [...] on file Legal Sex Female 8:43 AM AIRPORT SKILLED MAINTENANCE SUPERVISOR Gender Identity Not on file Sexual Orientation Not on file Last Filed Vital Signs Vital Sign Reading Time Taken Comments Blood Pressure 130/64 05/16/2024 2:09 PM CDT Pulse 83 05/16/2024 2:09 PM CDT Temperature 36.4 C (97.6 F) 11/01/2023 9:06 AM CDT Respiratory Rate 16 05/04/2022 8:26 AM AIRPORT SKILLED MAINTENANCE SUPERVISOR Oxygen Saturation 92% 05/16/2024 2:09 PM CDT Inhaled Oxygen Concentration - - Weight 74.8 kg (165 lb) 05/16/2024 2:09 PM CDT Height 157.5 cm (5' 2 ) 05/16/2024 2:09 PM CDT Body Mass Index 30.18 05/16/2024 2:09 PM CDT Plan of Treatment Not on file Procedures Procedure Name Priority Date/Time Associated Diagnosis Comments ELECTROCARDIOGRAM REPORT Routine 05/16/2024 Coronary artery disease of [place] artery of [place] heart with stable angina pectoris from Last 3 Months Results * Electrocardiogram Report (05/16/2024) 05/16/2024 Brown Mcdaniel MD ECG ORDERABLES Final Result from Last 3 Months Insurance AETNA MEDICARE GOLD [facility] HMO/O Address: [facility] [address] [place] [address] [place] [address] AETNA MEDICARE GOLD [facility] Address: [facility] [address] [place] [address] Advance Directives For more information, please contact: [phone] Documents on File Type Date Recorded Patient Social Security Specialist Expl anation Power of Rail Filler 05/04/2022 9:07 AM ADVANCE DIRECTIVE 10/25/2017 7:00 AM POWER OF FREELANCE DATA ENTRY * Full Code (Latest Code Status on File) Date Activated Date Inactivated Comments 10/17/2017 6:14 PM 10/21/2017 6:11 PM Care Teams Transfer Driver Relationship Specialty Start Date End Date Heron Ricci DO PCP - General 04/19/16 Talon Steele MD [id number] [place] [address] Surgeon Colon and Rectal Surgery 08/07/21
--- OUTSIDE RECORDS SUMMARY | 2024-07-12 08:39 | XMS_ITS | Continuity of Care Document ---
Author Organization [facility] Address [address] [facility] [address] [place] [address] Insurance Providers Payer Plan Claims Address Claims Phone Policy Number Group Number Relation Employer Guarantor Name Guarantor Guarantor Address Guarantor Phone [employer] tel:[phone] Dirk Schmidt Sitzes [address] [place] [address] [employer] tel:[phone] Self Roxana Sitzes [address] [place] [address] [id number] [employer] MEDIC ARE ADV [address], [place] [address] tel:[phone] Self Roxana Sitzes [address] [place] [address] Problems Condition ICD9 code ICD10 code [...]
--- OUTSIDE RECORDS SUMMARY | 2024-07-12 08:39 | XMS_ITS ---
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 Past Treatment and Therapy Plans No past plan information found. Lifetime Dose Tracking * Chemical Lifetime Dose Automatic Entry Manual Entr y DLP 4,876 mGycm 4,876 mGycm 0 mGycm Resolved Problems Problem Noted Date Diagnosed Date Resolved Date Anal cancer 08/16/2017 05/09/2018 Overview (08/16/2017): Added automatically from request for surgery [id number]
--- OUTSIDE RECORDS SUMMARY | 2024-07-12 08:40 | XMS_ITS | Clinical Summary ---
Author Organization [facility] Address [address] [facility] [place] [address] Care Team Providers Care Delivery Helper Name Role Phone Heron Ricci DO Primary Care Provider [phone] Source Comments [facility],non-owned Affiliates and Associated Physician Practices is amultiple site organization consisting of ambulatory clinics and hospital sitesin [place], [place], [place] and [place]. This disclosure is being madepursuant to the Care Everywhere program and may not contain all information available regarding this patient. Last updated [facility] Allergies Active Allergy Reactions Criticality Noted Date Comments Codeine Nausea and/or Vomiting Low 12/04/2008 Reaction: NAUSEA, Sulfa Drugs Anaphylaxis High 07/06/2022 Medications * Be aware that medications may not be up to date on this document. Alwaysverify current medications with the patient. albuterol HFA (Proventil; Ventolin; Proair) 108 (90 Base) MCG/ACT inhaler INHALE 2 PUFFS BY MOUTH EVERY 4 TO 6 HOURS NEEDED FOR SHORTNESS OF BREATH OR WHEEZING 3 Active Symbicort 80-4.5 MCG/ACT inhaler INHALE 2 PUFFS BY MOUTH EVERY 12 HOURS 3 Active Ascorbic Acid 100 MG Take 1 (one) tablet by mouth Two times a week Active vitamin D3 (Cholecalciferol ) (25 MCG) 1000 UNIT capsule Take 1 (one) capsule by mouth Two times a week Active Coenzyme Q10 10 MG Take 10 mg by mouth Two times a week Active hydroCHLOROthiaz dave (Hydrodiuril) 25 MG tablet Take 1 (one) tablet by mouth as needed 2 Active losartan (Cozaar) 100 MG tablet Take 1 (one) tablet by mouth once daily 3 Active meloxicam (Mobic) 15 MG tablet Take 1 (one) tablet by mouth once daily 3 Active naproxen sodium (Aleve) 220 MG tablet Take 1 (one) tablet by mouth as needed Active Vitamin E (Vitamin E/D-Alpha Natural) 268 MG (400 UNIT) CAPS Take 400 Units by mouth Two times a week Active GLUCOSAMINE CHONDROITIN COMPLX PO Active B Complex Vitamins (VITAMIN B COMPLEX PO) Take by mouth Two times a week Active Temple-3 1000 MG Take by mouth Two times [...] 23 Shortness of breath 05/17/2012 11/16/2022 Immunizations Immunization Administration Dates Next Due [employer] primary monoval ent 12+ yr 0.3mL Purple [...] at Not on file Legal Sex Female 4:03 AM CDT Gender Identity Not on file Sexual Orientation [...] 2 - PPSV23) 12/02/2019 12/01/2018 COVID-19 VACCINE ( season) 2023 04/14/2020, 03/31/2020 DEPRESSION SCREENING 02/29/2024 MEDICARE AWV CALENDAR YEAR 2024 INFLUENZA VACCINE (Season Ended) 2024 11/27/2018, 11/27/2017, 11/12/2016, Additional history exists Respiratory Syncytial [...] complete this topic MENINGOCOCCAL (Group B) VACCINE SHARED DECISION-MAKING Aged Out No longer eligible based on patient's age to complete this topic MENINGOCOCCAL GROUPS A/C/Y/W VACCINE Aged Out No longer eligible based on patient's age to complete this topic Insurance AET AETNA MEDICARE ADV Care Teams Delivery Helper Relationship Specialty Start Date End Date Heron Ricci DO PCP - General 07/06/22
--- OUTSIDE RECORDS SUMMARY | 2024-07-12 08:40 | XMS_ITS | Clinical Summary ---
Author Organization [facility] Address [address] [place] [address] Care Team Providers Care Framing Inspector Name Role Phone Heron Ricci DO Primary Care Provider [phone] Talon Steele MD Unavailable [phone] Allergies Active Allergy Reactions Criticality Noted Date [...] mouth 2 (two) times a week Active ncmr-fmf-eak R-RG-gruo-diet 29 125 mg-37.5 mg- 500 mcg-1.25mg capsule [...] mg total) by mouth daily 30 tablet 5 Active Active Problems Problem Noted Date [...] (08/16/2017): Added automatically from request for surgery [id number] Encounters Date Type Department Care Team Description 05/16/2024 2:30 PM CDT Office Visit [facility] Cardiology [address] [place] [phone] Brown Mcdaniel MD Coronary artery disease of [place] artery of [place] heart with stable angina pectoris (Primary Dx); LV dysfunction; Primary hypertension; FELTON (dyspnea on exertion); Restrictive lung disease; History of tobacco abuse 05/16/2024 Orders Only [facility] Cardiology [address] [place] [phone] Brown Mcdaniel MD from Last 3 Months Immunizations Immunization Administration Dates Next Due Influenza, [...] pu lmonary disease) (HCC) Hypertension Anal cancer (HCC) tx. 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 Gender Identity Not on file Sexual Orientation Not on file Obstetrics History Last Filed Vital Signs Vital Sign Reading Time Taken Comments Blood Pressure 130/64 05/16/2024 2:09 PM CDT Pulse 83 05/16/2024 2:09 PM CDT Temperature 36.4 C (97.6 F) 11/01/2023 9:06 AM CDT Respiratory Rate 16 05/04/2022 8:26 AM SENIOR INFORMATION DEVELOPER Oxygen Saturation 92% 05/16/2024 2:09 PM CDT Inhaled Oxygen Concentration - - Weight 74.8 kg (165 lb) 05/16/2024 2:09 PM CDT Height 157.5 cm (5' 2 ) 05/16/2024 2:09 PM CDT Body Mass Index 30.18 05/16/2024 2:09 PM CDT Plan of Treatment Health Maintenance Due [...] Pneumococcal vaccine 65+ (2 of 2 - PPSV23) 01/26/2019 12/01/2018 Covid-19 Vaccine (3 2023-2 5 season) 2023 04/14/2020, 03/31/2020 Influenza Vaccine (Season Ended) 2024 11/27/2018, 11/27/2017, 11/12/2016, Additional history exists Procedures Procedure Name Priority Date/Time Associated Diagnosis Comments ELECTROCARDIOGRAM REPORT Routine 05/16/2024 Coronary artery disease of [place] artery of [place] heart with stable angina pectoris from Last 3 Months Results * Electrocardiogram Report (05/16/2024) 05/16/2024 Brown Mcdaniel MD ECG ORDERABLES Final Result from Last 3 Months Insurance AETNA MEDICARE GOLD [facility] AETNA MEDICARE GOLD Advance Directives For more information, please contact: [phone] Documents on File Type Date Recorded Patient Film Processor Expl anation Power of Stroboscope Operator 05/04/2022 9:07 AM ADVANCE DIRECTIVE 10/25/2017 7:00 AM POWER OF RECORDS MANAGEMENT DIRECTOR * Full Code (Latest Code Status on File) Date Activated Date Inactivated Comments 10/17/2017 6:14 PM 10/21/2017 6:11 PM Care Teams Framing Inspector Relationship Specialty Start Date End Date Heron Ricci DO PCP - General 04/19/16 Talon Steele MD [phone] [place] [address] Surgeon Colon and Rectal Surgery 08/07/21
--- OUTSIDE RECORDS SUMMARY | 2024-07-12 08:40 | XMS_ITS | Clinical Summary ---
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
--- OUTSIDE RECORDS SUMMARY | 2024-07-12 08:40 | XMS_ITS | Data Portability ---
Author Organization [facility], Main Office Address [address] [place] [address] Care Team Providers Care Farm Or Ranch Animal Caretaker Name Role Phone OSCAR MERCADO Primary Care Provider [phone] Assessment No assessment recorded. Plan of Treatment Reminders Order Date Submit Date Provider Last Modified By Organization Details Last Modified Time Details Appointments None recorded. Lab urinalysis , dipstick 2022 023 [email or web address] [facility], [address], [place], [address], 17:45:57 Referral None recorded. Procedures None recorded. Surgeries None recorded. Imaging None recorded. Medication Orders Macrobid 100 mg capsule 2022 023 [id number], [address], [place], [address], 17:45:59 Patient TargetsNo targets recorded. Patient InstructionsNo instructions recorded. Reason for Referral None Reported. Results Created Date Observation Date Name Description Value Unit Range Abnormal Flag Note LastModifiedBy Organization Detail LastModifiedTime 10/28/19 21 10/27/2020 urina lysis , dipst ick Leukocytes (reference range: negative jewel/ l) Small Not Available [facility] [address] [facility], [address], [place], [address], 10/27/2020 10:12:02 10/28/19 21 10/27/2020 urina lysis , dipst ick Nitrite (reference rage: negative mg/dl) negati ve Not Available [address], [address], 10/27/2020 10:12:02 10/28/19 21 10/27/2020 urina lysis , dipst ick Urobilinogen (reference range: 0.2-1 mg/dl) 0.2 Not Available [address] [address], [place], [address], 10/27/2020 10:12:02 10/28/19 21 10/27/2020 urina lysis , dipst ick Protein (reference range: negative mg/dl) Negati ve Not Available [address], [address], 10/27/2020 10:12:02 10/28/19 21 10/27/2020 urina lysis , dipst ick pH (reference range: 5-7) 5.5 Not Available [address], [address], 10/27/2020 10:12:02 10/28/19 21 10/27/2020 urina lysis , dipst ick Blood (reference range: negative Babatunde/ l) Negati ve Not Available [address], [address], 10/27/2020 10:12:02 10/28/19 21 10/27/2020 urina lysis , dipst ick Specific Henderson (reference range: 1.005-1.030) 1.020 Not Available [address], [address], 10/27/2020 10:12:02 10/28/19 21 10/27/2020 urina lysis , dipst ick Ketone (reference range: negative mg/dl) Negati ve Not Available [address], [address], 10/27/2020 10:12:02 10/28/19 21 10/27/2020 urina lysis , dipst ick Bilirubin (reference range: negative mg/dl) Negati ve Not Available [address], [address], 10/27/2020 10:12:02 10/28/19 21 10/27/2020 urina lysis , dipst ick Glucose (reference range: negative mg/dl) Negati ve Not Available [address], [address], 10/27/2020 10:12:02 10/28/19 21 10/27/2020 urina lysis , dipst ick Appearance Clear Not Available [address], [address], 10/27/2020 10:12:02 10/28/19 21 10/27/2020 urina lysis , dipst ick Color Yellow Not Available [address], [address], 10/27/2020 10:12:02 12/24/19 21 12/23/2020 urina lysis , dipst ick Leukocytes (reference range: negative jewel/ l) Negati ve Not Available [address], [address] [address], [place], [address], 12/23/2020 14:49:30 12/24/1912/23/2020 urina lysis , dipst ick Nitrite (reference rage: negative mg/dl) negati ve Not Available [address], [address], 12/23/2020 14:49:30 12/24/1912/23/2020 urina lysis , dipst ick Urobilinogen (reference range: 0.2-1 mg/dl) 0.2 Not Available [address], [address] [address], [place], [address], 12/23/2020 14:49:30 12/24/1912/23/2020 urina lysis , dipst ick Protein (reference range: negative mg/dl) Negati ve Not Available [address], [address], 12/23/2020 14:49:30 12/24/19 21 12/23/2020 urina lysis , dipst ick pH (reference range: 5-7) 5.0 Not Available [address] [address], [place], [address], 12/23/2020 14:49:30 12/24/19 21 12/23/2020 urina lysis , dipst ick Blood (reference range: negative Babatunde/ l) Negati ve Not Available [address], [address], 12/23/2020 14:49:30 12/24/1912/23/2020 urina lysis , dipst ick Specific Henderson (reference range: 1.005-1.030) 1.015 Not Available [address], [address], [address], 12/23/2020 14:49:30 12/24/1912/23/2020 urina lysis , dipst ick Ketone (reference range: negative mg/dl) Negati ve Not Available [address], [address], [address], 12/23/2020 14:49:30 12/24/1912/23/2020 urina lysis , dipst ick Bilirubin (reference range: negative mg/dl) Negati ve Not Available [address], [address], 12/23/2020 14:49:30 12/24/1912/23/2020 urina lysis , dipst ick Glucose (reference range: negative mg/dl) Negati ve Not Available [address], [address], 12/23/2020 14:49:30 12/24/1912/23/2020 urina lysis , dipst ick Appearance Clear Not Available [address], [address], 12/23/2020 14:49:30 12/24/1912/23/2020 urina lysis , dipst ick Color Yellow Not Available [address], [address], [address], 12/23/2020 14:49:30 09/22/19 23 09/21/2022 urina lysis , dipst ick Leukocytes (reference range: negative jewel/ l) Small Not Available [facility] [address], [place], [address], 09/21/2022 17:09:33 09/22/19 23 09/21/2022 urina lysis , dipst ick Nitrite (reference rage: negative mg/dl) negati ve Not Available [facility] [address] [place], [place] [address]e [facility] [address], [place], [address], 09/21/2022 17:09:33 09/22/19 23 09/21/2022 urina lysis , dipst ick Urobilinogen (reference range: 0.2-1 mg/dl) 0.2 Not Available [facility] [address] [place], [place] [address] [facility] [address], [place], [address], 09/21/2022 17:09:33 09/22/19 23 09/21/2022 urina lysis , dipst ick Protein (reference range: negative mg/dl) Negati ve Not Available [facility] [address] [place], [place] [address] [facility] [address], [place], [address], 09/21/2022 17:09:33 09/22/19 23 09/21/2022 urina lysis , dipst ick pH (reference range: 5-7) 6.5 Not Available [facility] [address] [place] [address] Ave [facility] [address], [place], [address], 09/21/2022 17:09:33 09/22/19 23 09/21/2022 urina lysis , dipst ick Blood (reference range: negative Babatunde/ l) Non-He molyze d: Trace Not Available [facility] [address], [place], [address], 09/21/2022 17:09:33 09/22/19 23 09/21/2022 urina lysis , dipst ick Specific Henderson (reference range: 1.005-1.030) 1.015 Not Available [facility] [address] [facility] [address], [place], [address], 09/21/2022 17:09:33 09/22/19 23 09/21/2022 urina lysis , dipst ick Ketone (reference range: negative mg/dl) Negati ve Not Available [facility] [address] [facility] [address], [place], [address], 09/21/2022 17:09:33 09/22/19 23 09/21/2022 urina lysis , dipst ick Bilirubin (reference range: negative mg/dl) Negati ve Not Available [facility] [address], [place], [address], 09/21/2022 17:09:33 09/22/19 23 09/21/2022 urina lysis , dipst ick Glucose (reference range: negative mg/dl) Negati ve Not Available [facility] [address] [facility] [address], [place], [address], 09/21/2022 17:09:33 09/22/19 23 09/21/2022 urina lysis , dipst ick Appearance Clear Not Available [facility] [address] [facility] [address], [place], [address], 09/21/2022 17:09:33 09/22/19 23 09/21/2022 urina lysis , dipst ick Color Yellow Not Available [facility] [place] [address] [facility] [address], [place], [address], 09/21/2022 17:09:33 10/28/19 21 10/27/2020 US, bladd er No observ ation record ed. [id number] [facility] [address], [address], [place], [address], 04/28/2022 12:56:57 Result Notes None recorded. Problems Name Problem SNOMED Code Status Onset Date Resolution Date Notes Provider Name and Address Organization Details Recorded Time Closed Colles' fracture 280410022 Active Not Available [facility] 3 12:52:42 Enthesopathy of hip region 89042421 Active Not Available [facility] 3 12:52:42 Fracture of forearm 12047683 Active Not Available [facility] 3 12:52:42 Recurrent urinary tract infection 432530411 Active 2022 Vance Guzmán MD [address] [facility], [place], [address] , [facility] 17:42:21 Problem Notes None recorded. Procedures Surgical History Date Name Laterality Status Provider Name and Address Organization Details Recorded Time 8 Cancer Surgery completed Not Available [facility] 04/28/2022 12:49:59 6 Brain aneurysm repr complx completed Not Available [facility] 04/28/2022 12:49:59 Imaging Results Imaging Date Name Status LastModified by Organiz ation Details LastModified Time 10/27/2020 US, bladder completed [id number] [facility] [address], [address], [place], [address], 04/28/2022 12:56:57 Procedure Notes None recorded. Medical Equipment None Reported. Allergies Allergen ID Allergen Name Allergen Category Reaction Reaction Severity Criticality Documentation Date Start Date Code Code System Note Provider Name and Address Organization Details Recorded Time 08129 Substance with sulfonami de structure and antibacte rial mechanism of action (substanc e) medicatio n Not available Not available Not available 04/28/2022 66923 8003 SNOMED Not Available [facility] 3 12:56:50 68136 codeine medicatio n Not available Not available Not available 04/28/2022 2670 RxNorm Not Available [facility] 3 12:56:50 Medications Name Sig Start Date [...] Available Not Available No t Available Fluvirin 2639-5359 45 mcg (15 mcg x 3)/0.5 mL [...] and Address Organization Details Last Updated DateTime 31.7 kg/m2 160.02 cm 96 % 96 % 100 /min 99.8 [degF] 25969.0 3 g 158 mm[Hg] 100 mm[Hg] Not Available [facility] 3 12:52:02 Date Recorded Body mass index (BMI) Body height Heart rate Body temperature Body weight Systolic blood pressure Diastolic blood pressure Provider Name and Address Organization Details Last Updated DateTime 1 31.7 kg/m2 160.02 cm 67 /min 98.7 [degF] 36177.0 3 g 172 mm[Hg] 100 mm[Hg] Not Available [facility] 3 12:52:02 Date Recorded Body temperature Body weight Oxygen saturation Oxygen saturation in Arterial blood by Pulse oximetry Heart rate Systolic blood pressure Diastolic blood pressure Provider Name and Address Organization Details Last Updated DateTime 3 98.1 [degF] 21862.5 6 g 89 % 89 % 74 /min 174 mm[Hg] 92 mm[Hg] Karissa Cordova MA [place] - [facility] 3 17:16:35 Social History Question Answer Notes LastModified by [employer] Details LastModified Time Tobacco Smoking Status Former Smoker Not Available [facility] 04/28/2022 12:49:56 What Is Your Level Of Caffeine Consumption? Moderate [id number] Information not available 04/28/2022 When Did You Quit Smoking? 6-10yearssinc elastcigarett e [id number] Information not available 04/28/2022 Have You Ever Been Counseled For Unhealthy Alcohol Use? No [id number] Information not available 04/28/2022 Has Tobacco Cessation Counseling Been Provided? No [id number] Information not available 04/28/2022 Sex: Unknown Functional Status Question Answer Note LastModified by [employer] Details LastModified Time Do you use any illicit or recreational drugs? No [id number] Information not available 04/28/2022 Do you or have you ever used any other forms of tobacco or nicotine? No [id number] 26 Information not available 04/28/2022 What is your level of alcohol consumption? Moderate [id number] 26 Information not available 04/28/2022 Mental Status None recorded. Family History Relationship Description Onset Age of this Age Resolved Age Notes LastModified by Organization Details LastModified Time Brother Malignant tumor of kidney [id number] Not available 04/28/2022 12:50:01 Mother Malignant tumor of breast [id number].866 [id number] Not available 04/28/2022 12:50:01 Unspecified Relation Diabetes mellitus [id number].885 [id number] Not available 04/28/2022 12:50:01 Unspecified Relation Heart disease [id number].249 [id number] Not available 04/28/2022 12:50:01 Unspecified Relation Hypertensive disorder [id number].098 [id number] Not available 04/28/2022 12:50:01 Medical History Condition Response CANCER: SPECIFY Y COPD Y HYPERTENSION Y Gynecological HistoryNo gynecological history recorded. Obstetrics History GPAL:G 0 P 0 0 0 0 Past Encounters Encounter ID Performer Location Encounter Start Date Encounter Closed Date Diagnosis/Indication Diagnosis SNOMED-CT Code Diagnosis ICD10 Code Diagnosis Note [id number] MD LAURO Harding_ALFREDO [facility] [address] [place] [address] 10/27/2020 00:00:00 10/27/2020 10:39:40 [id number] MD LUIS MIGUEL Malhotra [facility] [address] [place] [id number] 12/23/2020 00:00:00 12/23/2020 15:23:13 [id number] MD LAURO Malhotra_ALFREDO [address] [address] 09/21/2022 16:27:19 09/21/2022 17:37:53 Recurrent urinary tract infection 460462947 N39.0 UA negative today, discussed options, we agree to try self start with macrobid bid for 3 days at a time. Continue conservati ve measures. Health Concerns Section Related Observation LastModified by Organization Detai ls LastModified Time None Recorded Concern Status LastModified by Organization Details LastModified Time None Recorded Advance Directives Directive None Recorded Payers Encounter Date Sequence Insurance Name Policy Number Policy Demarco Covered Member ID Demarco Member ID Guarantor Name 09/21/2022 1 [employer] [id number] Roxana Andersen [id number] Roxana Andersen Notes Date Note Type Note Provider Name and Address Organization Details Recorded Time 09/21/2022 text/html 1Pleah i s here for complaints of recurrent [...] carcinoma treated with APR and colostomy at [facility] in 2018. She states she had reconstruction [...] the chest abdomen pelvis 10/31/2019 at the [facility] radiology at [facility] advanced medicine which showed no abnormalities. She [...] No fever or chills. Vance Guzmán MD [address] [place] [address], [facility] [address], [place], [address], [place] - [facility] 09/21/2022 17:46:01 OBGyn Episode No OBEpisode recorded.
== END 2024-07-12 08:36 | disposition home or self-care (01) ==
PROVIDERS: PCP Internal Medicine; Visit Provider Nurse Practitioner Family
DX: R06.00 Dyspnea, unspecified (principal); J98.4 Other disorders of lung; N13.30 Unspecified hydronephrosis
CPT/HCPCS: 71250

== ENCOUNTER 2024-08-17 09:30 | Outpatient (RCR) | payer MEDICARE, SELFPAY ==
[2024-04-20 15:20] VITALS: BP 140/70; PULSE 73; RESP 18; O2SAT 95
[2024-04-20 15:43] VITALS: PULSE 73
== END 2024-08-17 23:59 | disposition home or self-care (01) ==
LOC: ANHCPREHAB 09:30
PROVIDERS: PCP Internal Medicine Cardiovascular Disease; Visit Provider Internal Medicine
DX: J44.9 Chronic obstructive pulmonary disease, unspecified (principal)
CPT/HCPCS: 94625

== ENCOUNTER 2024-08-21 09:24 | Outpatient (RCR) | payer MEDICARE, SELFPAY ==
[2024-08-19 00:03] VITALS: BP 140/70; PULSE 73; RESP 18; O2SAT 95
== END 2024-08-22 10:16 | disposition expired ==
LOC: ANHCPREHAB 09:24
PROVIDERS: PCP Internal Medicine; Visit Provider Internal Medicine
DX: J44.9 Chronic obstructive pulmonary disease, unspecified (principal)
CPT/HCPCS: 94625